=== PATIENT | male | born 1965 | race Hispanic/Latino ===

== ENCOUNTER 2024-09-26 00:56 | Inpatient (IN) | payer MEDICARE, SELFPAY ==
[2024-09-26] VITALS (15 sets, daily range): BP systolic 86–152; BP diastolic 58–71; PULSE 86–180; RESP 14–20; TEMP 36.6–37.1; O2SAT 96–100; BMI 29.9
--- NOTE | ~2024-09-26 | XR_ITS ---
Portable chest x-ray Comparison: None Clinical History: Chest pain Findings: Lungs are clear, without focal consolidation or pleural effusion. Cardiomediastinal silho uette is unremarkable. Bones and soft tissues are unremarkable. Impression: Clear lungs. Reviewed, dictated and finalized at location M. Impression: Clear lungs.
[2024-09-26] MEDS: ADENOSINE IV SOLN 6 MG/2 ML VIAL 12 MG (01:04)
--- NOTE | 2024-09-26 01:06 | ECG_ITS ---
Test Date: 2024-09-26 01:08:36 Measurements Intervals [place] Rate: 105 P: 55 FL: 167 QRS: 13 QRSD: 86 T: 31 QT: 355 QTc: 470 Interpretive Statements SINUS TACHYCARDIA POSSIBLE ANTERIOR MYOCARDIAL INFARCTION , PROBABLY OLD [30 ms Q WAVE IN V3/V4, OR R < 0.2 mV IN V4] PROBABLE INFERIOR MYOCARDIAL INFARCTION , PROBABLY OLD [35 ms Q WAVE IN II/aVF] No previous ECG available for comparison Electronically Signed On 09-26-2024 07:08:13 CDT by Emiliano Parr M.D.
[2024-09-26] MEDS: ONDANSETRON INJ 4 MG/2 ML VIAL IV PUSH ×2 (01:10→11:31)
[2024-09-26 01:27] LABS: Hematocrit 38.8 % (42.0-52.0); Hemoglobin 12.4 g/dL (14.0-18.0); Immature Granulocyte Percent A 0.5 % (0-0.5); Immature Platelet Fraction Pct 3.3 % (0.9-11.2); Lymphocytes Absolute Auto 2.43 K/mm3 (0.9-3.2); Mean Corpuscular HGB Conc 32.0 g/dl (32-36); Mean Corpuscular Hemoglobin 32.5 pg (26-34); Mean Corpuscular Volume 101.6 fl (80-100); Nucleated Red Blood Cells Absolute Auto 0.000 K/mm3 (0.0-0.012); Nucleated Red Blood Cells Perc 0.0 % (0.0-0.2); Platelet Count Result 112 k/mm3 (150-375); Red Blood Count 3.82 M/mm3 (4.6-6.20); White Blood Count 7.6 K/mm3 (4.5-10.0)
[2024-09-26 01:40] LABS: INR 1.0; Partial Thromboplastin Time 25.6 Seconds (22.3-36.8); Prothrombin Time 13.2 Seconds (11.1-14.7)
[2024-09-26 01:45] LABS: Alanine Aminotransferase 50 U/L (6-50); Albumin Level 3.9 g/dL (3.5-5.1); Alkaline Phosphatase 135 U/L (38-126); Anion Gap 10 mmol/L (4-12); Aspartate Amino Transferase 104 U/L (17-59); Bilirubin,Total 0.3 mg/dL (0.2-1.3); Blood Urea Nitrogen 9 mg/dL (9-20); Calcium 9.0 mg/dL (8.4-10.2); Carbon Dioxide 25 mmol/L (22-30); Chloride 109 mmol/L (98-107); Estimated CRCL calculation 68 ml/min; Estimated Glomerular Filt Rate > 60; Glucose 392 mg/dL (65-110); Lipase 144 U/L (23-300); Magnesium 1.9 mg/dL (1.6-2.3); Potassium 4.0 mmol/L (3.4-5.0); Sodium 144 mmol/L (137-145); Total Protein 6.7 g/dL (6.3-8.2)
[2024-09-26 01:56] LABS: Troponin I 0.026 ng/mL (0.000-0.034)
--- OUTSIDE RECORDS SUMMARY | 2024-09-26 02:55 | XMS_ITS | Patient Health Record ---
Author Organization [facility] Address [address] [address] Care Team Providers Care Nitro Man Name Role Phone Felix Per Unavailable [phone] Jamal Reddy DO Unavailable Unavailable Sanjay Strickland Unavailable [phone] Reason For Referral No Information Plan Of Treatment No Information Insurance Providers Payer Name Payer Address Payer Phone Subscriber Number Group Number Insured Name Patient Relationship to Insured Coverage Start Date Coverage End Date Adele ARNOLD [employer] HMO [address] [address] [place] [address] [phone] [id number] Marcel Spencer Self - patient is the insured
--- OUTSIDE RECORDS SUMMARY | 2024-09-26 02:55 | XMS_ITS ---
Author Organization [facility] Address [address] [place] [address] Care Team Providers Care Superintendent Police Name Role Phone Per [place] Unavailable [phone] Jamal Reddy DO Unavailable Unavailable Sanjay Strickland Unavailable [phone] REASON FOR VISIT Vertigo Encounters Encounter Location Date Provider Diagnosis [facility] [address] [place] [id number] 05/28/2024 Sanjay Strickland Plan Of Treatment No Information Progress Notes * Marcel SPENCER DDOB:1965 (59 yo M)Acc No.[id number]:05/28/2024 PROGRESS NOTES Patient: Ivana LUXMarcel Provider: Urvashi Strickland MD :1965 A ge:58 Y S ex:Male Date:05/28/2024 Address:., [place], [id number] Subjective: * Chief Complaints: * 1 . Vertigo. * Medical History: Objective: * Vitals: * Physical Examination: Assessment: Plan: * Treatment: * Images: * Electronic signature of Rosales Strickland MD on 09/26/2024 at 02:55 AM CDT Sign off status: Pending * Provider: Urvashi Strickland MD Date: 05/28/2024 Generated for Dima knight/Margarita/Rosita on: 09/26/2024 02:55 AM CDT
--- OUTSIDE RECORDS SUMMARY | 2024-09-26 02:55 | XMS_ITS | Patient Health Record ---
[place] [address] Care Team Providers Care Bus Girl Name Role Phone CLEM JACK Unavailable [phone] Dr. Hank Jones Unavailable Unavailable Reason For Referral No Information Encounters Encounter Location Date Provider Diagnosis [id number] [address] [place], [place] [id number] 10/23/2023 CLEM JACK Plan Of Treatment No Information Insurance Providers Payer Name Payer Address Payer Phone Subscriber Number Group Number Insured Name Patient Relationship to Insured Coverage Start Date Coverage End Date [place] [address] [address] [place], [place] [id number] Marcel Spencer Self - patient is the insured
--- OUTSIDE RECORDS SUMMARY | 2024-09-26 02:55 | XMS_ITS ---
Author Organization Dianne Iqbal [facility] Address [address] [facility] [place] [address] Care Team Providers Care Senior Care Provider Name Role Phone DOUGLASJIMBOKISHAN EnamoradoRHETT Unavailable [phone] Josue Mena Unavailable [phone] ZOË LIRIANO Unavailable [phone] Allergies No Known Allergies Medications Medication SIG (Take, Route, Frequency, Duration) Notes Start Date End Date Status metFORMIN HCl 500 MG 1 tablet with a madhavi l Orally Once a day Active Cholecalciferol 125 MCG (5000 UT) 1 capsule Orally Once a day Active Morphine Sulfate 30 MG 1 tablet as neede d Orally every 4 hrs Active Pantoprazole Sodium 40 MG 1 tablet Orall y Once a day Active Ondansetron 4 MG 1 tablet on the tong ue and allow to dissolve Orally Once a day Active Cephalexin 500 MG 1 capsule Orally leonardo ry 6 hrs Active Dulaglutide 0.75 MG/0.5ML as directed Subcutaneous Active Dicyclomine HCl 20 MG 1 tablet Orally Th ree times a day Active levETIRAcetam 250 MG 1 tablet Orally leonardo ry 12 hrs Active Atorvastatin Calcium 40 MG 1 tablet Oral ly Once a day Active Empagliflozin 10 MG 1 tablet Orally Once a day Active Furosemide 20 MG 1 tablet Orally Once a day Active Carvedilol 3.125 MG 1 tablet with food Orally Twice a day Active Folic Acid 1 MG 1 tablet Orally Once a day Active Ferrous Sulfate 325 (65 Fe) MG 1 tablet Orally Three times a Week Active Plavix 75 MG 1 tablet Orally Once a day Active Aspirin 81 MG 1 tablet Orally Once a day Active Thiamine Mononitrate 100 MG 1 tablet Ora lly Once a day Active Senokot S 8.6-50 MG 1 tablet as needed Orally Twice a day Active Amiodarone HCl 200 MG 1 tablet Orally On ce a day Active Nitrostat 0.4 MG as directed Sublingual Active Social History Tobacco Use: Social History Observation Description Date Details (start date - stop date) Current Smoker NA - NA Tobacco Use/Smoking Question Answer Notes Are you a current every day smoker Encounters Encounter Location Date Provider Diagnosis [facility] [address] [facility] [address] [place] [address] 12/10/2023 ZOË LIRIANO Atherosclerotic hear t disease of [place] coronary artery without angina pectoris I25.10 and Presence of aortocoronary bypass graft Z95.1 Assessments Encounter Date Diagnosis (ICD Code) Assessment Notes Treatment Notes Treatment Clinical Notes Section Notes 12/10/2023 Atherosclerotic heart disease of [place] coronary artery without angina pectoris (ICD-10 - I25.10) Patient Presents to the office for routine follow up. On examination his sternum is stable, leg and chest incisions are sealed and healing with out signs of infection. Heart is in regular rate and rhythm chest is clear. Discussed the need to start cardiac rehabilitation begining on week four post operative. Resume full activity after sixth week. 12/10/2023 Presence of aortocoronary bypass graft (ICD-10 - Z95.1) Patient Presents to the office for routine follow up. On examination his sternum is stable, leg and chest incisions are sealed and healing with out signs of infection. Heart is in regular rate and rhythm chest is clear. Discussed the need to start cardiac rehabilitation begining on week four post operative. Resume full activity after sixth week. Plan Of Treatment Next Appt Details Follow Up: prn, Reason: Progress Notes * KETTY BERNALOB:[birth year] (59 yo M)Acc No.[id number]:12/10/2023 Progress Notes Patient: RAMAN LOVETT Provider: Tony Liriano M.D. :1965 A ge:58 Y S ex:Male Date:12/10/2023 Address:[address] [place], [place] [id number] Subjective: * Chief Complaints: * * HPI: V isit: The patient's reason for visit is: S urgical follow up.? Mr. Gamble is a status post CORONARY ARTERY BYPASS WITH ENDOSCOPIC VEIN HARVEST FROM LEFT LEG AND UTILIZATION OF LEFT INTERNAL MAMMARY ARTERY by Dr. Herrera on November 14, 2023. * ROS: G eneral/Constitutional: CONSTITUTIONAL: N o fevers, chills, sweats, anorexia or weight loss. H EENT: N o tinnitus, epistaxis, nasal congestion or sore throat. C ARDIOVASCULAR: N o chest pains. R ESPIRATORY: N o cough, sputum, hemoptysis or pleurisy. G I: No abdominal pain, nausea, vomiting, diarrhea, constipation or change in stools. G U: N o dysuria, frequency, urgency or hematuria. M USCULOSKELETAL: N o arthralgias or myalgias. SKIN: N o rashes, bruising, pruritus or new lumps. P SYCHIATRIC: N o insomnia or depression. E NDOCRINE: N o heat or cold intolerance. H EMIL/LYMPH: N o fatigue or night sweats. I MMUNOLOGY: N o allergy symptoms or recent infection. * Medical History: A nemia, CAD, Cocaine abuse, Diabetes type 2, ETOH abuse, HLD, HTN, Heart failure, Discitis lumbar region, Seizure, NSTEMI. * Surgical History: C ABG - Dr. Herrera 11/14/2023. * Family History: N on-Contributory. * Social History: T obacco Use: T obacco Use/Smoking A re you a c urrent every day smoker D rugs/Alcohol: D rugs H ave you used drugs other than those for medical reasons in the past 12 months? Y es C ocaine? Y es * Medications: T aking Carvedilol 3.125 MG Tablet 1 tablet with food Orally Twice a day , Taking Atorvastatin Calcium 40 MG Tablet 1 tablet Orally Once a day , Taking levETIRAcetam 250 MG Tablet 1 tablet Orally every 12 hrs , Taking Cephalexin 500 MG Capsule 1 capsule Orally every 6 hrs , Taking Dicyclomine HCl 20 MG Tablet 1 tablet Orally Three times a day , Taking Dulaglutide 0.75 MG/0.5ML Solution Pen-injector as directed Subcutaneous , Taking Cholecalciferol 125 MCG (5000 UT) Capsule 1 capsule Orally Once a day , Taking metFORMIN HCl 500 MG Tablet 1 tablet with a meal Orally Once a day , Taking Ondansetron 4 MG Tablet Disintegrating 1 tablet on the tongue and allow to dissolve Orally Once a day , Taking Pantoprazole Sodium 40 MG Tablet Delayed Release 1 tablet Orally Once a day , Taking Morphine Sulfate 30 MG Tablet 1 tablet as needed Orally every 4 hrs , Taking Nitrostat 0.4 MG Tablet Sublingual as directed Sublingual , Taking Amiodarone HCl 200 MG Tablet 1 tablet Orally Once a day , Taking Aspirin 81 MG Tablet Chewable 1 tablet Orally Once a day , Taking Plavix 75 MG Tablet 1 tablet Orally Once a day , Taking Senokot S 8.6-50 MG Tablet 1 tablet as needed Orally Twice a day , Taking Thiamine Mononitrate 100 MG Tablet 1 tablet Orally Once a day , Taking Furosemide 20 MG Tablet 1 tablet Orally Once a day , Taking Empagliflozin 10 MG Tablet 1 tablet Orally Once a day , Taking Ferrous Sulfate 325 (65 Fe) MG Tablet 1 tablet Orally Three times a Week , Taking Folic Acid 1 MG Tablet 1 tablet Orally Once a day , Medication List reviewed and reconciled with the patient * Allergies: N .K.D.A. Objective: * Vitals: * Examination: G eneral Examination: GENERAL: W ell developed, well nourished, in no acute distress. HEAD: N ormocephalic, atraumatic and no facial swelling.? EYES: P ERRLA/EOM intact, conjunctiva and sclera clear . NECK/THYROID: N ormal without masses, carotid bruits or JVD. LUNGS: C lear bilaterally to auscultation and percussion.? CVS: R egular rate and rhythm. Normal S1 and S2 sounds without murmur, gallops or rubs. PMI at fourth-fifth ICS. ABDOMEN: c hest tube sutures removed . CHEST: S ternotomy wound. INCISION/WOUND: h ealing no infection in wound, sutures removed, clean, dry and intact. STERNUM: S table. EXTREMITIES: N o clubbing, cyanosis, edema or deformity.? PERIPHERAL PULSES: P alpable and equally distributed in all extremities. NEUROLOGICAL: N o gross deficits. Assessment: * Assessment: 1. 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 P resence of aortocoronary bypass graft - Z95.1 Patient Presents to the offi ce for routine follow up. On examination his sternum is stable, leg and chest incisions are sealed and healing with out signs of infection. Heart is in regular rate and rhythm chest is clear. Discussed the need to start cardiac rehabilitation begining on week four post operative. Resume full activity after sixth week. Plan: * Treatment: * Follow Up: p rn * * Electronic signature of ZOË LIRIANO MD on 09/26/2024 at 02:55 AM CDT Sign off status: Pending * Provider: Tony Liriano M.D. Date: 12/10/2023 Generated for [facility] ng/Falakeg/eTransmitting on: 09/26/2024 02:55 AM CDT History and Physical Notes * HPI (History of Present Illness) Category Sub-Category Detail Notes Category Not es Visit The patient's reason for visit is: Surgical follow up Mr. Gamble is a status post CORONARY ARTERY BYPASS WITH ENDOSCOPIC VEIN HARVEST FROM LEFT LEG AND UTILIZATION OF LEFT INTERNAL MAMMARY ARTERY by Dr. Herrera on November 14, 2023 Examination Category Sub-Category Detail Notes Category Not es General Examination GENERAL: Well develop ed, well nourished, in no acute distress HEAD: Normocephalic, atrau matic and no facial swelling EYES: PERRLA/EOM intact, conjunctiva and sclera clear NECK/THYROID: Normal without raúl s, carotid bruits or JVD CVS: Regular rate and rhy thm. Normal S1 and S2 sounds without murmur, gallops or rubs. PMI at fourth-fifth ICS CHEST: Sternotomy wound LUNGS: Clear bilaterally to auscultation and percussion ABDOMEN: chest tube sutures r emoved EXTREMITIES: No clubbing, cyanosi s, edema or deformity PERIPHERAL PULSES: Palpable and equally distributed in all extremities INCISION/WOUND: healing no infection in wound, sutures removed, clean, dry and intact STERNUM: Stable NEUROLOGICAL: No gross deficits
--- OUTSIDE RECORDS SUMMARY | 2024-09-26 02:55 | XMS_ITS | Clinical Summary ---
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 This disclosure is being madepursuant to the Care Everywhere program and may not contain all information available regarding this patient. Last updated [employer] Allergies No known active allergies Medications * Be aware that medications may not be up to date on this document. Alwaysverify current medications with the patient. atorvastatin (Lipitor) 40 MG tablet Take 1 (one) tablet by mouth once daily Active carvedilol (Coreg) 3.125 MG tablet Take 1 (one) tablet by mouth 2 times daily with morning and evening meal 4 Active cephalexin 250 MG Take 250 mg by mouth once daily 4 Active cloNIDine (Catapres) 0.1 MG tablet Take 1 (one) tablet by mouth 2 times daily as needed (BP greater than 160/90) Active folic acid (Folvite) 1 MG tablet Take 1 (one) tablet by mouth once daily Active levETIRAcetam (Keppra) 500 MG tablet Take 1 (one) tablet by mouth 2 times daily Active losartan (Cozaar) 50 MG tablet Take 1 (one) tablet by mouth once daily Active metFORMIN (Glucophage) 1000 MG tablet Take 1 (one) tablet by mouth 2 times daily with morning and evening meal Active glipiZIDE (Glucotrol) 5 MG tablet Take 1 (one) tablet by mouth 2 times daily Active Cholecalciferol (vitamin D3) 1.25 MG (49249 UT) capsule Take 1 (one) capsule by mouth every 7 days (once a week) Active Cyanocobalamin (CVS B12 GUMMIES PO) Take 250 mcg by mouth 2 times daily Active CALCIUM MAGNESIUM ZINC PO Take 1 tablet by mouth once daily Active clopidogrel (plaVIX) 75 MG tablet Take 1 (one) tablet by mouth once daily Active ferrous sulfate 325 (65 FE) MG tablet Take 1 (one) tablet by mouth every Sunday, Sunday & Sunday Active morphine CR 12hr (MS Contin) 30 MG tablet Take 1 (one) tablet by mouth 3 times daily Active Active Problems Problem Noted Date Diagnosed Date Acute alcoholic intoxication without complicatio n 09/20/2024 Encounters Date Type Department Care Team Description 09/20/2024 10:09 AM CDT - 09/23/2024 2:12 PM CDT Hospital Encounter [facility] [address] [place] [address] Jim Mccormack MD Wolde, Hailemariam, DO Internal Medicine Discharge Disposition: Left Against Medical Advice/Discontinued Care 09/20/2024 Travel 09/16/2024 1:15 PM CDT - 09/16/2024 1:57 PM CDT Emergency ER at [address] [address] Chele Olivo MD Drug-seeking behavior (Primary Dx); Chest pain, unspecified type; Alcohol abuse; Homelessness Discharge Disposition: Home or Self Care 09/16/2024 Travel 09/15/2024 10:42 AM CDT - 09/15/2024 2:00 PM CDT Emergency ER at [address] [address] Chele Olivo MD Chest pain, unspecified type; Homelessness; Alcohol abuse Discharge Disposition: Home or Self Care 09/15/2024 Travel 09/14/2024 4:34 PM CDT - 09/14/2024 5:59 PM CDT Emergency ER at [address] [place] [address] Chele Olivo MD Drug-seeking behavior (Primary Dx); Chest pain, unspecified type; Generalized abdominal pain; Acute alcoholic intoxication with complication; Left against medical advice Discharge Disposition: Left Against Medical Advice/Discontinued Care 09/14/2024 Travel from Last 3 Months Social History Tobacco Use Types Packs/Day Years Used Date Smoking Tobacco: Every Day Cigarettes Smokeless Tobacco: Never Tobacco Cessation:Ready to Q uit: No; Counseling Given: Yes Alcohol Use Standard Drinks/Week Comments Yes 0 (1 standard drink = 0.6 oz pur e alcohol) daily drinker AUDIT-C Answer Date Recorded Q1: How often do you have a drink containing alcohol? 4 or more times a week 09/20/2024 Q2: How many drinks containi ng alcohol do you have on a typical day when you are drinking? 10 or more Q3: How often do you have si x or more drinks on one occasion? Daily or almost daily 09/20/2024 Overall Financial Resource Strain (CARDIA) Answe r Date Recorded How hard is it for you to pa y for the very basics like food, housing, medical care, and heating? Somewhat hard 09/21/2024 [facility] [place] of Occupat ional Health - Occupational Stress Questionnaire Answer Date Recorded Do you feel stress - tense, restless, nervous, or anxious, or unable to sleep at night because your mind is troubled all the time - these days? Only a little 09/21/2024 Hunger Vital Sign Answer Date Recorded Within the past 12 months, y ou worried that your food would run out before you got the money to buy more. Sometimes true Within the past 12 months, t he food you bought just didn't last and you didn't have money to get more. Never true 08/2024 PRAPARE - Transportation Answer Date Re corded In the past 12 months, has l ack of transportation kept you from medical appointments or from getting medications? No 08/2024 In the past 12 months, has l ack of transportation kept you from meetings, work, or from getting things needed for daily living? No 09/21/2024 Housing Stability Vital Sign Answer Nilo e Recorded In the last 12 months, was t here a time when you were not able to pay the mortgage or rent on time? Yes 09/21/2024 In the past 12 months, how m any times have you moved where you were living? 1 09/21/2024 At any time in the past 12 m [facility], were you homeless or living in a half-way (including now)? Patient unable to answer 09/21/2024 Sex and Gender Information Value Date Recorded Sex Assigned at Not on file Legal Sex Male 3:48 PM CDT Gender Identity Not on file Sexual Orientation Not on file Last Filed Vital Signs Vital Sign Reading Time Taken Comments Blood Pressure 122/59 09/23/2024 6:46 AM CDT Pulse 85 09/23/2024 6:46 AM CDT Temperature 36.5 C (97.7 F) 09/23/2024 6:46 AM CDT Respiratory Rate 19 09/23/2024 6:46 AM CDT Oxygen Saturation 96% 09/23/2024 6:46 AM CDT Inhaled Oxygen Concentration - - Weight 79.8 kg (176 lb) 09/20/2024 4:31 PM CDT Height 165.1 cm (5' 5) 09/20/2024 4:31 PM CDT Body Mass Index 29.29 09/20/2024 4:31 PM CDT Plan of Treatment Health Maintenance Due Date Last Done Comments COLOGUARD (AGES 45-75) - COL ON CA SCREENING 1964 COLON MONITORING 1964 COLONOSCOPY - COLON CA SCREENING 1964 CT COLONOGRAPHY - COLON CA SCREENING 1964 Colorectal Cancer Screening 1964 FIT - COLON CA SCREENING 1964 FLEX SIG - COLON CA SCREENING 1964 HIV SCREENING 06/26/1979 HEPATITIS C SCREENING 06/21/1982 DTAP/TDAP/TD VACCINES (1 - Tdap) 06/26/1983 PNEUMOCOCCAL VACCINE 50+ (1 of 2 - PCV) 06/26/1983 ZOSTER VACCINE (1 of 2) 2014 COVID-19 VACCINE ( - 2023-2 5 season) 2023 DEPRESSION SCREENING 03/19/2024 MEDICARE AWV CALENDAR YEAR 2024 INFLUENZA VACCINE (#1) 2024 Respiratory Syncytial Virus (RSV) Vaccine Pt: or over 60 yrs (1 - 1-dose 75+ series) 06/26/2039 HEPATITIS B VACCINE Aged Out No longe r eligible based on patient's age to complete this topic HIB VACCINE Aged Out No longer eligi ble based on patient's age to complete this topic HPV VACCINE Aged Out No longer eligi ble based on patient's age to complete this topic MENINGOCOCCAL (Group B) VACC INE SHARED DECISION-MAKING Aged Out No longer eligibl e based on patient's age to complete this topic MENINGOCOCCAL GROUPS A/C/Y/W VACCINE Aged Out No longer eligible b ased on patient's age to complete this topic Procedures Procedure Name Priority Date/Time Associated Diagnosis Comments CARDIAC RHYTHM STRIP ORDER 09/24/2024 10:26 AM CDT GLUCOSE - POINT OF CARE Routine 09/23/2024 11:35 AM CDT GLUCOSE - POINT OF CARE Routine 09/23/2024 7:32 AM CDT GLUCOSE - POINT OF CARE Routine 09/22/2024 8:59 PM CDT GLUCOSE - POINT OF CARE Routine 09/22/2024 5:54 PM CDT GLUCOSE - POINT OF CARE Routine 09/22/2024 11:49 AM CDT GLUCOSE - POINT OF CARE Routine 09/22/2024 8:36 AM CDT GLUCOSE - POINT OF CARE Routine 09/21/2024 10:03 PM CDT GLUCOSE - POINT OF CARE Routine 09/21/2024 5:06 PM CDT GLUCOSE - POINT OF CARE Routine 09/21/2024 11:27 AM CDT GLUCOSE - POINT OF CARE Routine 09/21/2024 6:57 AM CDT VITAMIN B12 AM Draw 09/21/2024 3:52 AM CDT LIPID PROFILE AM Draw 09/21/2024 3:52 AM CDT HEMOGLOBIN A1C Routine 09/21/2024 3:52 AM CDT PHOSPHORUS BLOOD Routine 09/21/2024 3:52 AM CDT MAGNESIUM BLOOD Routine 09/21/2024 3:52 AM CDT CBC W/O DIFFERENTIAL Routine 09/21/2024 3:52 AM CDT BASIC METABOLIC PANEL (CALCIUM TOTAL) Routine 09/21/2024 3:52 AM CDT GLUCOSE - POINT OF CARE Routine 09/21/2024 12:43 AM CDT GLUCOSE - POINT OF CARE Routine 09/20/2024 4:32 PM CDT ALCOHOL ETHYL BLOOD STAT 09/20/2024 1 :25 PM CDT MAGNESIUM BLOOD STAT 09/20/2024 1:25 PM CDT LIPASE BLOOD STAT 09/20/2024 1:25 PM CDT COMPREHENSIVE METABOLIC PANEL STAT 09/20/2024 1:25 PM CDT CBC W AUTO DIFFERENTIAL STAT 09/20/2024 1:25 PM CDT EKG 12-LEAD STAT 09/16/2024 1:21 PM CDT Chest pain, unspecified type TROPONIN-I HIGH SENSITIVE REFLEX 1HOUR Timed 09/15/2024 12:14 PM CDT GLUCOSE - POINT OF CARE Routine 09/15/2024 12:11 PM CDT XR CHEST 2VW STAT 09/15/2024 11:06 AM CDT Chest pain, unspecified type ALCOHOL ETHYL BLOOD STAT 09/15/2024 1 0:55 AM CDT B-TYPE NATRIURETIC PEPTIDE STAT 09/15/2024 10:55 AM CDT TROPONIN-I HIGH SENSITIVE BASELINE + 1HR STAT 09/15/2024 10:55 AM CDT PT-INR STAT 09/15/2024 10:55 AM CDT MAGNESIUM BLOOD STAT 09/15/2024 10:55 AM CDT LIPASE BLOOD STAT 09/15/2024 10:55 AM CDT COMPREHENSIVE METABOLIC PANEL STAT 09/15/2024 10:55 AM CDT CBC W AUTO DIFFERENTIAL STAT 09/15/2024 10:55 AM CDT EKG 12-LEAD STAT 09/15/2024 10:38 AM CDT Chest pain, unspecified type CT ABDOMEN PELVIS W CONTRAST STAT 09/14/2024 5:09 PM CDT Chest pain, unspecified type Generalized abdominal pain XR CHEST 1VW PORTABLE STAT 09/14/2024 4:55 PM CDT Chest pain, unspecified type AMYLASE BLOOD STAT 09/14/2024 4:31 PM CDT LIPASE BLOOD STAT 09/14/2024 4:31 PM CDT ALCOHOL ETHYL BLOOD STAT 09/14/2024 4 :31 PM CDT COMPREHENSIVE METABOLIC PANEL STAT 09/14/2024 4:31 PM CDT CBC W AUTO DIFFERENTIAL STAT 09/14/2024 4:31 PM CDT TROPONIN-I HIGH SENSITIVE BASELINE + 1HR STAT 09/14/2024 4:31 PM CDT EKG 12-LEAD STAT 09/14/2024 4:22 PM CDT Chest pain, unspecified type from Last 3 Months Results * CARDIAC RHYTHM STRIP ORDER (09/24/2024 10:26 AM CDT) Narrative 09/24/2024 10:26 AM CDT Ordered by an unspecified provider. us Scanned Document CARDIAC SERVICES ORDERABLES Fin al Result * (ABNORMAL) GLUCOSE - POINT OF CARE (09/23/2024 11:35 AM CDT) Only the most recent of13 resultswithin the time period is included. Pathologist [facility] Glucose WB/POC 138(H) 70 - 125 mg/dL 09/23/2024 11:40 AM CDT [facility] Specimen Type Arterial/C apillary 09/23/2024 11:40 AM CDT [facility] Blood BLOOD SPECIMEN / Unknown 09/23/2024 11:35 AM CDT 09/23/2024 11:40 AM CDT Akil Flores DO LAB - POINT OF CARE ORDERAB LES Final Result [facility] [address] * (ABNORMAL) HEMOGLOBIN A1C (09/21/2024 3:52 AM CDT) Pathologist [facility] Hemoglobin A1c 9.3(H) 4.2 - 5.6 % 09/21/2024 4:44 AM CDT [facility] Estimated Average Glucose 220 mg/dL 09/21/2024 4:44 AM CDT [facility] Blood BLOOD SPECIMEN / Unknown Lab Venipuncture / Unknown 09/21/2024 3:52 AM CDT 09/21/2024 4:01 AM CDT Narrative [facility] - 09/21/2024 4:44 AM CDT HbA1c Interpretation: Normal: < 5.7% Pre-diabetes: 5.7-6.4% Diabetes: Equal to or greater than 6.5% Test results diagnostic of diabetes should be repeated for confirmation. Treatment target values recommended by ADA and other clinical organizations should be used to evaluate metabolic control in patients. This test should not replace glucose testing for patients with Type 1 diabetes, pediatric patients, or women. Falsely low HbA1c results may be observed in patients with clinical conditions that shorten erythrocyte life span or decrease mean erythrocyte age such as the presence of unstable hemoglobin variants, elevated hemoglobin F level or other causes of hemolytic anemia. HbA1c may not accurately reflect glycemic control when clinical conditions that affect erythrocyte survival are present. Severe Iron deficiency anemia may yield falsely high results. Hemoglobin A1c assay should not be used to diagnose or monitor diabetes in patients with malignancy, recent blood transfusion, chronic kidney or liver disease. This method may yield falsely low results when hemoglobin (HbF) exceeds 5% in the specimen. The Bethea Alinity assay for the measurement of HbA1c is a National Glycohemoglobin Standardization Program (NGSP) certified method. Jim Mccormack MD LAB - CHEMISTRY ORDERABLES Final Result [facility] [address] * (ABNORMAL) CBC W/O DIFFERENTIAL (09/21/2024 3:52 AM CDT) [facility] WBC 5.6 4.0 - 10.7 x10E9/L 09/21/2024 4:09 AM CDT [facility] RBC Count 3.60(L) 4.30 - 5.80 x10E12/L 09/21/2024 4:09 AM CDT [facility] Hemoglobin 11.7(L) 13.3 - 17.5 g/dL 09/21/2024 4:09 AM CDT [facility] Hematocrit 35.5(L) 38.7 - 51.1 % 09/21/2024 4:09 AM CDT [facility] MCV 98.6(H) 80.0 - 98.0 fL 09/21/2024 4:09 AM CDT [facility] MCH 32.5 26.7 - 33.6 pg 09/21/2024 4:09 AM CDT [facility] MCHC 33.0 31.7 - 36.3 g/dL 09/21/2024 4:09 AM CDT [facility] RDW-CV 14.9(H) 11.3 - 14.8 % 09/21/2024 4:09 AM CDT [facility] Platelet Count 137(L) 150 - 420 x10E9/L 09/21/2024 4:09 AM CDT [facility] MPV 10.0 7.8 - 11.4 fL 09/21/2024 4:09 AM CDT [facility] Blood BLOOD SPECIMEN / Unknown Lab Venipuncture / Unknown 09/21/2024 3:52 AM CDT 09/21/2024 4:01 AM CDT Jim Mccormack MD LAB - HEMATOLOGY ORDERABLES Kathya ramirez Result [facility] [address] * (ABNORMAL) BASIC METABOLIC PANEL (CALCIUM TOTAL) (09/21/2024 3:52 AM CDT) Glucose 285(H) 70 - 125 mg/dL 09/21/2024 4:24 AM CDT [facility] Sodium 145 136 - 145 mmol/L 09/21/2024 4:24 AM CDT [facility] Potassium 3.7 3.4 - 5.1 mmol/L 09/21/2024 4:24 AM CDT [facility] Chloride 108(H) 98 - 107 mmol/L 09/21/2024 4:24 AM CDT [facility] CO2 24 22 - 29 mmol/L 09/21/2024 4:24 AM CDT [facility] Calcium 7.76(L) 8.4 - 10.2 mg/dL 09/21/2024 4:24 AM CDT [facility] Anion Gap 13 6 - 16 mmol/L 09/21/2024 4:24 AM CDT [facility] BUN 9.7 8.4 - 25.7 mg/dL 09/21/2024 4:24 AM CDT [facility] Creatinine 0.82 0.72 - 1.25 mg/dL 09/21/2024 4:24 AM CDT [facility] eGFR >90 >90 mL/min/1.7 3m2 09/21/2024 4:24 AM CDT [facility] Comment:The GFR result was c alculated using the updated CKD-EPI Creatinine Equation (2020). Blood BLOOD SPECIMEN / Unknown Lab Venipuncture / Unknown 09/21/2024 3:52 AM CDT 09/21/2024 4:01 AM CDT us Jim Mccormack MD LAB - CHEMISTRY ORDERABLES Final Result Performing Organization Address City/[facility] de Phone Number [facility] [address] * (ABNORMAL) PHOSPHORUS BLOOD (09/21/2024 3:52 AM CDT) Phosphorus 2.0(L) 2.5 - 4.5 mg/dL 09/21/2024 4:21 AM CDT [facility] Blood BLOOD SPECIMEN / Unknown Lab Venipuncture / Unknown 09/21/2024 3:52 AM CDT 09/21/2024 4:01 AM CDT us Jim Mccormack MD LAB - CHEMISTRY ORDERABLES Final Result Performing Organization Address [facility] Phone Number [facility] [address] * MAGNESIUM BLOOD (09/21/2024 3:52 AM CDT) Only the most recent of3 resultswithin the time period is included. Magnesium 1.7 1.6 - 2.6 mg/dL 09/21/2024 4:21 AM CDT [facility] Blood BLOOD SPECIMEN / Unknown Lab Venipuncture / Unknown 09/21/2024 3:52 AM CDT 09/21/2024 4:01 AM CDT us Jim Mccormack MD LAB - CHEMISTRY ORDERABLES Final Result Performing Organization Address [facility] de Phone Number [facility] [address] * VITAMIN B12 (09/21/2024 3:52 AM CDT) Vitamin B12 582 213 - 816 pg/mL 09/21/2024 5:07 AM CDT [facility] Blood BLOOD SPECIMEN / Unknown Lab Venipuncture / Unknown 09/21/2024 3:52 AM CDT 09/21/2024 4:01 AM CDT Jim Mccormack MD LAB - CHEMISTRY ORDERABLES Final Result [facility] [address] * (ABNORMAL) LIPID PROFILE (09/21/2024 3:52 AM CDT) Pathologist [facility] Cholesterol 130 <200 mg/dL 09/21/2024 4:22 AM CDT [facility] Triglycerides 460(H) <150 mg/dL 09/21/2024 4:22 AM CDT [facility] HDL Cholesterol 58 >40 mg/dL 4:22 AM CDT [facility] Chol HDL Ratio 2.2 1.0 - 6.0 09/21/2024 4:22 AM CDT [facility] LDL Calculated 09/21/2024 4:22 AM CDT [facility] Comment:Not Calculated due t o Triglyceride >400 mg/dL. VLDL Calculated 4:22 AM CDT [facility] Comment:Not Calculated due t o Triglyceride >400 mg/dL. Blood BLOOD SPECIMEN / Unknown Lab Venipuncture / Unknown 09/21/2024 3:52 AM CDT 09/21/2024 4:01 AM CDT Narrative [facility] - 09/21/2024 4:22 AM CDT Lipid Profile Comment: CHOLESTEROL LEVEL..................CLINICAL INTERPRETATION LESS THAN 200 MG/DL..............................DESIRABLE 200-239 MG/DL..............................BORDERLINE HIGH GREATER THAN 240 MG/DL................................HIGH LDL-CHOLESTEROL LEVEL..............CLINICAL INTERPRETATION LESS THAN 100 MG/DL................................OPTIMAL 100-129 MG/DL.................................NEAR OPTIMAL GREATER THAN 160 MG/DL...........................HIGH RISK HDL RISK LEVEL GREATER THEN 60 MG/DL............................DECREASED 40-60 MG/DL........................................AVERAGE LESS THAN 40 MG/DL...............................INCREASED TRIGLYCERIDE LEVEL..................CLINICAL INTERPRETATION LESS THAN 150 MG/DL...............................DESIRABLE 150-199 MG/DL...............................BORDERLINE HIGH 200-499 MG/DL..........................................HIGH GREATER THAN 500..................................VERY HIGH THE NATIONAL CHOLESTEROL EDUCATION PROGRAM HAS SET THE ABOVE GUIDELINES (REFERANCE VALUES) FOR CHOLESTEROL AND HDL. RISK ASSOCIATED WITH CHOLESTEROL/HDL RATIOS RISK....................MALE RATIO.............FEMALE RATIO 1/2 AVERAGE.................<3.4.......................<3.3 LOW RISK.................... 4.0 ...................... 3.8 AVERAGE..................... 5.0 ...................... 4.5 2X AVERAGE.................. 9.5 ...................... 7.0 3X AVERAGE...................>23........................>11 Jim Mccormack MD LAB - CHEMISTRY ORDERABLES Final Result Performing Organization Address City/State/[facility] Co de Phone Number [facility] [address] * (ABNORMAL) CBC W AUTO DIFFERENTIAL (09/20/2024 1:25 PM CDT) Only the most recent of3 resultswithin the time period is included. [facility] Signature WBC 7.4 4.0 - 10.7 x10E9/L 09/20/2024 2:02 PM CDT [facility] RBC Count 3.93(L) 4.30 - 5.80 x10E12/L 09/20/2024 2:02 PM CDT [facility] Hemoglobin 13.1(L) 13.3 - 17.5 g/dL 09/20/2024 2:02 PM CDT [facility] Hematocrit 37.8(L) 38.7 - 51.1 % 09/20/2024 2:02 PM CDT [facility] MCV 96.2 80.0 - 98.0 fL 09/20/2024 2:02 PM CDT [facility] MCH 33.3 26.7 - 33.6 pg 09/20/2024 2:02 PM CDT [facility] MCHC 34.7 31.7 - 36.3 g/dL 09/20/2024 2:02 PM CDT [facility] RDW-CV 14.6 11.3 - 14.8 % 09/20/2024 2:02 PM T [facility] Platelet Count 145(L) 150 - 420 x10E9/L 09/20/2024 2:02 PM CDT [facility] MPV 9.8 7.8 - 11.4 fL 09/20/2024 2:02 PM [facility] Neutrophil % 68.0 41.0 - 74.0 % 09/20/2024 2:02 PM T [facility] Lymphocyte % 22.7 17.0 - 47.0 % 09/20/2024 2:02 PM CDT [facility] Monocyte % 8.5 3.0 - 11.0 % 09/20/2024 2:02 PM CDT [facility] Eosinophil % 0.0 0.0 - 7.0 % 09/20/2024 2:02 PM CDT [facility] Basophil % 0.5 0.0 - 1.6 % 09/20/2024 2:02 PM CDT [facility] Immature Granulocytes % 0.3 0.0 - 1.0 % 09/20/2024 2:02 PM CDT [facility] Neutrophil Absolute 5.01 1.60 - 7.50 x10E9/L 09/20/2024 2:02 PM CDT [facility] Lymphocyte Absolute 1.67 1.00 - 4.40 x10E9/L 09/20/2024 2:02 PM CDT [facility] Monocyte Absolute 0.63 0.15 - 1.00 x10E9/L 09/20/2024 2:02 PM CDT [facility] Eosinophil Absolute 0.00 0.00 - 0.60 x10E9/L 09/20/2024 2:02 PM CDT [facility] Basophil Absolute 0.04 0.00 - 0.13 x10E9/L 09/20/2024 2:02 PM T [facility] Blood BLOOD SPECIMEN / Unknown Venipuncture / Unknown 09/20/2024 1:25 PM CDT 09/20/2024 1:31 PM CDT us Kvng Moreno MD LAB - HEMATOLOGY ORDERABLES F inal Result [facility] [address] [place], [place] [id number] [place] [address] * (ABNORMAL) COMPREHENSIVE METABOLIC PANEL (09/20/2024 1:25 PM CDT) Only the most recent of3 resultswithin the time period is included. Glucose 299(H) 70 - 125 mg/dL 09/20/2024 2:02 PM T [facility] Sodium 147(H) 136 - 145 mmol/L 09/20/2024 2:02 PM T [facility] Potassium 3.0(LL) 3.4 - 5.1 mmol/L 09/20/2024 2:02 PM T [facility] Chloride 105 98 - 107 mmol/L 09/20/2024 2:02 PM T [facility] CO2 26 22 - 29 mmol/L 09/20/2024 2:02 PM T [facility] Calcium 8.27(L) 8.4 - 10.2 mg/dL 09/20/2024 2:02 PM T [facility] Anion Gap 16 6 - 16 mmol/L 09/20/2024 2:02 PM T [facility] BUN 8.3(L) 8.4 - 25.7 mg/dL 09/20/2024 2:02 PM T [facility] Creatinine 0.84 0.72 - 1.25 mg/dL 09/20/2024 2:02 PM T [facility] Alkaline Phosphatase 104 40 - 150 U/L 09/20/2024 2:02 PM CDT [facility] ALT 28 7 - 42 U/L 09/20/2024 2:02 PM T [facility] AST 36(H) 5 - 34 U/L 09/20/2024 2:02 PM CDT [facility] [facility] Protein Total 6.0(L) 6.4 - 8.3 gm/dL 09/20/2024 2:02 PM CDT [facility] Albumin 3.4 3.1 - 4.5 gm/dL 09/20/2024 2:02 PM CDT [facility] Globulin Total 2.6 2.6 - 4.0 gm/dL 09/20/2024 2:02 PM CDT [facility] Albumin/Globulin Ratio 1.3 0.9 - 1.6 09/20/2024 2:02 PM CDT [facility] Bilirubin Total 0.6 0.2 - 1.2 mg/dL 09/20/2024 2:02 PM CDT [facility] eGFR >90 >90 mL/min/1.7 3m2 09/20/2024 2:02 PM CDT [facility] Comment:The GFR result was c alculated using the updated CKD-EPI Creatinine Equation (2020). Blood BLOOD SPECIMEN / Unknown Venipuncture / Unknown 09/20/2024 1:25 PM CDT 09/20/2024 1:31 PM CDT Kvng Moreno MD LAB - CHEMISTRY ORDERABLES Fi nal Result Performing Organization Address City/[facility]/ZIP Co de Phone Number [facility] [address] * (ABNORMAL) LIPASE BLOOD (09/20/2024 1:25 PM CDT) Only the most recent of3 resultswithin the time period is included. Lipase 6(L) 8 - 78 U/L 09/20/2024 1:50 PM CDT [facility] Blood BLOOD SPECIMEN / Unknown Venipuncture / Unknown 09/20/2024 1:25 PM CDT 09/20/2024 1:31 PM CDT Kvng Moreno MD LAB - CHEMISTRY ORDERABLES Fi nal Result Performing Organization Address City/[facility]/ZIP Co de Phone Number [facility] [address] * (ABNORMAL) ALCOHOL ETHYL BLOOD (09/20/2024 1:25 PM CDT) Only the most recent of3 resultswithin the time period is included. Ethanol 381.9(H) <10 mg/dL 09/20/2024 1:50 PM CDT [facility] Blood BLOOD SPECIMEN / Unknown Venipuncture / Unknown 09/20/2024 1:25 PM CDT 09/20/2024 1:31 PM CDT Narrative [facility] - 09/20/2024 1:50 PM CDT For Medical Use Only us Kvng Moreno MD LAB - CHEMISTRY ORDERABLES Fi nal Result Performing Organization Address City/[facility]/ZIP Co de Phone Number [facility] [address] * EKG 12-Lead (09/16/2024 1:21 PM CDT) Only the most recent of3 resultswithin the time period is included. 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) low-voltage QRS complexes in the lateral precordial leads Abnormal ECG When compared with ECG of 15-SEP-2024 10:38, No significant change was found Confirmed by MD IMELDA, [facility] ([id number]) on 09/17/2024 9:42:27 AM [facility] 09/16/2024 1:21 PM CDT 09/17/2024 9:42 AM CDT us Chele Olivo MD ECG ORDERABLES Edited Res ult - Final [facility] * TROPONIN-I HIGH SENSITIVE REFLEX 1HOUR (09/15/2024 12:14 PM CDT) Troponin I High Sensitive 13 <=35 ng/L 09/15/2024 12:42 PM CDT [facility] Delta Troponin I HS <0 <6 ng/L 09/15/2024 12:42 PM CDT [facility] Blood BLOOD SPECIMEN / Unknown Venipuncture / Unknown 09/15/2024 12:14 PM CDT 09/15/2024 12:17 PM CDT Chele Olivo MD LAB - CHEMISTRY ORDERABLES Final Result [facility] [address] [place], [place] [id number] [place] [address] * XR CHEST 2VW (09/15/2024 11:06 AM CDT) Anatomical Region Laterality Modality Chest Computed Radiogr aphy 09/15/2024 12:1 1 PM CDT Impressions 09/15/2024 12:11 PM CDT IMPRESSION: No acute cardiopulmonary abnormalities. > Interpreting Provider: Meng Egan MD on 09/15/2024 12:11 PM Narrative 09/15/2024 12:11 PM CDT PROCEDURE: XR CHEST 2VW DATE/TIME OF EXAM: 09/15/2024 11:11 AM CLINICAL INFORMATION: None relevant/not provided if blank. Indication: R07.9: Chest pain, unspecified type Additional History: FINDINGS: Cardiomegaly median sternotomy. Lungs are clear. No pleural effusion or pneumothorax. Procedure Note Meng Egan MD - 09/15/2024 PROCEDURE: XR CHEST 2VW DATE/TIME OF EXAM: 09/15/2024 11:11 AM CLINICAL INFORMATION: None relevant/not provided if blank. Indication: R07.9: Chest pain, unspecified type Additional History: FINDINGS: Cardiomegaly median sternotomy. Lungs are clear. No pleural effusion or pneumothorax. IMPRESSION: No acute cardiopulmonary abnormalities. > Interpreting Provider: Meng Egan MD on 09/15/2024 12:11 PM Chele Olivo MD DIAGNOSTIC IMAGING ORDERAB LES Final Result * TROPONIN-I HIGH SENSITIVE BASELINE + 1HR (09/15/2024 10:55 AM CDT) Only the most recent of2 resultswithin the time period is included. [facility] Troponin I High Sensitive 14 <=35 ng/L 09/15/2024 11:31 AM CDT [facility] Blood BLOOD SPECIMEN / Unknown Venipuncture / Unknown 09/15/2024 10:55 AM CDT 09/15/2024 11:03 AM CDT Chele Olivo MD LAB - CHEMISTRY ORDERABLES Final Result [facility] [address] * (ABNORMAL) PT-INR (09/15/2024 10:55 AM CDT) [facility] PT 14.0 11.3 - 14.8 sec 09/15/2024 11:17 AM CDT [facility] INR 1.08(L) 2 - 3 09/15/2024 11:17 AM CDT [facility] Blood BLOOD SPECIMEN / Unknown Venipuncture / Unknown 09/15/2024 10:55 AM CDT 09/15/2024 11:03 AM CDT Narrative [facility] - 09/15/2024 11:17 AM CDT Recommended therapeutic INR ranges for Oral Anticoagulant Therapy: 2.0-3.0 For prevention of Thrombosis or Embolism and treatment of Venous Thrombosis. 2.5- 3.5 for prevention of Recurrent Embolism or treatment of patients with Mechanical Prosthetic Heart Valves. Chele Olivo MD LAB - COAGULATION ORDERABL ES Final Result [facility] [address] * B-TYPE NATRIURETIC PEPTIDE (09/15/2024 10:55 AM CDT) [facility] BNP 49 10 - 100 pg/mL 09/15/2024 11:29 AM CDT [facility] Blood BLOOD SPECIMEN / Unknown Venipuncture / Unknown 09/15/2024 10:55 AM CDT 09/15/2024 11:03 AM CDT Chele Olivo MD LAB - CHEMISTRY ORDERABLES Final Result [facility] [address] [place] [address], [facility] * CT ABDOMEN AND PELVIS W IV CONTRAST [id number] (09/14/2024 5:09 PM CDT) Anatomical Region Laterality Modality Abdomen, Pelvis Computed Tomogra phy 09/15/2024 8:54 AM CDT Impressions 09/15/2024 8:56 AM CDT IMPRESSION: No acute findings. Hepatic steatosis. > Interpreting Provider: Meng Egan MD on 09/15/2024 8:56 AM Narrative 09/15/2024 8:56 AM CDT PROCEDURE: CT ABDOMEN PELVIS W CONTRAST DATE/TIME OF EXAM: 09/14/2024 5:26 PM CLINICAL INFORMATION: None relevant/not provided if blank. Indication: R07.9: Chest pain, unspecified type R10.84: Generalized abdominal pain Additional History: COMPARISON: None. TECHNIQUE: CT of the abdomen and pelvis was performed following intravenous contrast utilizing standard protocol. CT dose reduction technique was used, including Automated Exposure Control. CONTRAST: IOPAMIDOL 61 % IV SOLN:92 mL FINDINGS: Hepatic steatosis. Spleen within normal limits. The stomach, duodenum, pancreas, and adrenal glands are unremarkable. Kidneys enhance normally. No radiopaque gallstones or gallbladder wall thickening. No biliary ductal dilatation. No bowel wall thickening seen. No bowel obstruction. Colonic diverticulosis without diverticulitis. Chronic appearing T11 compression fracture. Prior vertebroplasty at L1. No acute osseous abnormality. Procedure Note Meng Egan MD - 09/15/2024 PROCEDURE: CT ABDOMEN PELVIS W CONTRAST DATE/TIME OF EXAM: 09/14/2024 5:26 PM CLINICAL INFORMATION: None relevant/not provided if blank. Indication: R07.9: Chest pain, unspecified type R10.84: Generalized abdominal pain Additional History: COMPARISON: None. TECHNIQUE: CT of the abdomen and pelvis was performed following intravenouscontrast utilizing standard protocol. CT dose reduction technique was used, including Automated ExposureControl. CONTRAST: IOPAMIDOL 61 % IV SOLN:92 mL FINDINGS: Hepatic steatosis. Spleen within normal limits. The stomach, duodenum, pancreas, and adrenal glands are unremarkable. Kidneys enhance normally.No radiopaque gallstones or gallbladder wall thickening. No biliary ductal dilatation. No bowel wall thickening seen. No bowel obstruction. Colonicdiverticulosis without diverticulitis. Chronic appearing T11 compression fracture. Prior vertebroplasty at L1.No acute osseous abnormality. IMPRESSION: No acute findings. Hepatic steatosis. > Interpreting Provider: Meng Egan MD on 09/15/2024 8:56 AM us Chele Olivo MD CT ORDERABLES Final Resu lt * XR CHEST 1 VW PORTABLE [id number] (09/14/2024 4:55 PM CDT) Anatomical Region Laterality Modality Chest Computed Radiogr aphy 09/14/2024 6:22 PM CDT Impressions 09/14/2024 6:23 PM CDT IMPRESSION: No radiographic evidence of active cardiac/pulmonary disease. > Interpreting Provider: Rocky Dawkins MD on 09/14/2024 6:23 PM Narrative 09/14/2024 6:23 PM CDT PROCEDURE: XR CHEST 1VW PORTABLE, DATE/TIME OF EXAM: 09/14/2024 4:55 PM, LOCATION [facility] INDICATION: R07.9: Chest pain, unspecified type ADDITIONAL CLINICAL INFORMATION: Ordering Provider Reason For Exam: Technologist Note: Additional: COMPARISON: None. SINGLE VIEW PORTABLE CHEST INDICATION: 59 year old Male with chest pain FINDINGS: A single view portable examination of the chest, 1639 hours, is reviewed without the benefit of prior studies. A post operative changes from a sternal splitting procedure. Temporary pacemaker wires are present. The heart size and pulmonary vasculature are normal. I do not see any pulmonary vascular congestion or interstitial edema. There is no pneumothorax or pleural effusion. Procedure Note Rocky Dawkins MD - 09/14/2024 PROCEDURE: XR CHEST 1VW PORTABLE, DATE/TIME OF EXAM: 09/14/2024 4:55PM, LOCATION [facility] INDICATION: R07.9: Chest pain, unspecified type ADDITIONAL CLINICAL INFORMATION: Ordering Provider Reason For Exam: Technologist Note: Additional: COMPARISON: None. SINGLE VIEW PORTABLE CHEST INDICATION: 59 year old Male with chest pain FINDINGS: A single view portable examination of the chest, 1639 hours,is reviewed without the benefit of prior studies. A post operative changes from a sternal splitting procedure. Temporary pacemaker wires are present. The heart size and pulmonary vasculature are normal. I do not see any pulmonary vascular congestion or interstitial edema. There is no pneumothorax or pleural effusion. IMPRESSION: No radiographic evidence of active cardiac/pulmonarydisease. > Interpreting Provider: Rocky Dawkins MD on 09/14/2024 6:23 PM [facility]alob[facility] LAB TECH-ELECTRON BEAM OPERATOR DIAGNOSTIC IMAGING ORDERAB LES Final Result * AMYLASE BLOOD (09/14/2024 4:31 PM CDT) Amylase 37 25 - 125 U/L 09/14/2024 5:24 PM CDT [facility] Blood BLOOD SPECIMEN / Unknown Venipuncture / Unknown 09/14/2024 4:31 PM CDT 09/14/2024 4:39 PM CDT Chele Olivo MD LAB - CHEMISTRY ORDERABLES Final Result [facility] [address] [place] [address], [facility] from Last [address] [place] [address] MEDICARE [facility] MANAGED MEDICARE ADV Advance Directives * Full Code (Latest Code Status on File) Date Activated Date Inactivated Comments 09/20/2024 2:46 PM 09/23/2024 3:17 PM Care Teams Felt Tipping Machine Tender Relationship Specialty Start Date End Date Jamal Reddy DO [id number] [place] [address] PCP - General 09/21/24
--- OUTSIDE RECORDS SUMMARY | 2024-09-26 02:56 | XMS_ITS ---
Author Organization [facility] Address [address] [place] [address] Care Team Providers Care Door Tender Name Role Phone CLEM JACK Unavailable [phone] Dr. Hank Jones Unavailable Unavailable REASON FOR VISIT Referral Status: pending PA Encounters Encounter Location Date Provider Diagnosis [id number] [address] [place], [place] [id number] 10/23/2023 CLEM JACK Plan Of Treatment No Information Progress Notes * Marcel SPENCER DDOB:1965 (58 yo M)Acc No.[id number]:10/23/2023 Patient: Ivana Marcel LUX :1965 A ge:58 Y S ex:Male Address:[address] [place] [address], [place], [address] * true * Date: Generated for Dima knight/Margarita/eTransmitting on: 0 09/26/2024 02:55 AM CDT
--- OUTSIDE RECORDS SUMMARY | 2024-09-26 02:56 | XMS_ITS | Continuity of Care Document ---
Author Organization [facility]. If a dditional information is needed, contact Health Information Management at [phone] [place] [address] Phone Care Team Providers Care District Superintendent Name Role Phone Unavailable Unavailable Unavailable Unavailable Unavailable Unavailable Unavailable Unavailable Unavailable Unavailable Unavailable Unavailable Unavailable Unavailable Unavailable Unavailable Unavailable Unavailable Unavailable Unavailable Unavailable Unavailable Unavailable Unavailable Unavailable Unavailable Unavailable Unavailable Unavailable Unavailable Unavailable Unavailable Unavailable Unavailable Unavailable Unavailable Unavailable Unavailable Unavailable Unavailable Unavailable Unavailable Unavailable Unavailable Unavailable Unavailable Unavailable Unavailable Unavailable Unavailable Unavailable Unavailable Unavailable Unavailable Unavailable Unavailable Unavailable Unavailable Unavailable Unavailable Unavailable Unavailable Unavailable Unavailable Unavailable Unavailable Unavailable Unavailable Unavailable Unavailable Unavailable Unavailable Unavailable Unavailable Unavailable Unavailable Unavailable Unavailable Unavailable Unavailable Unavailable Unavailable Unavailable Unavailable Unavailable Unavailable Unavailable Unavailable Unavailable Unavailable Unavailable Unavailable Unavailable Unavailable Unavailable Unavailable Unavailable Unavailable Unavailable Unavailable Unavailable Unavailable Unavailable Unavailable Unavailable Unavailable Unavailable Unavailable Unavailable Unavailable Unavailable Unavailable Unavailable Unavailable Unavailable Unavailable Unavailable Unavailable Unavailable Unavailable Unavailable Unavailable Unavailable Unavailable Unavailable Unavailable Unavailable Unavailable Unavailable Unavailable Unavailable Unavailable Unavailable Unavailable Unavailable Unavailable Unavailable Unavailable Unavailable Unavailable Unavailable Unavailable Unavailable Unavailable Unavailable Unavailable Unavailable Unavailable Unavailable Unavailable Unavailable Unavailable Unavailable Unavailable Unavailable Unavailable Unavailable Unavailable Unavailable Unavailable Unavailable Unavailable Unavailable Unavailable Unavailable Unavailable Unavailable Unavailable Unavailable Unavailable Unavailable Unavailable Unavailable Unavailable Unavailable Unavailable Unavailable Unavailable Unavailable Unavailable Unavailable Unavailable Unavailable Unavailable Unavailable Unavailable Unavailable Unavailable Unavailable Unavailable Unavailable Unavailable Unavailable Unavailable Unavailable Unavailable Unavailable Unavailable Unavailable Unavailable Unavailable Unavailable Unavailable Unavailable Unavailable Unavailable Unavailable Unavailable Unavailable Unavailable Unavailable Unavailable Unavailable Unavailable Unavailable Unavailable Unavailable Unavailable Unavailable Unavailable Unavailable Unavailable Unavailable Unavailable Unavailable Unavailable Unavailable Unavailable Unavailable Unavailable Unavailable Unavailable Unavailable Unavailable Unavailable Unavailable Unavailable Unavailable Unavailable Unavailable Unavailable Unavailable Unavailable Unavailable Unavailable Unavailable Unavailable Unavailable Unavailable Unavailable Unavailable Unavailable Unavailable Unavailable Unavailable Unavailable Unavailable Unavailable Unavailable Unavailable Unavailable Unavailable Unavailable Unavailable Unavailable Unavailable Unavailable Unavailable Unavailable Unavailable Unavailable Unavailable Unavailable Unavailable Unavailable Unavailable Unavailable Unavailable Unavailable Unavailable Unavailable Note Terese Roberto R1 MD- [facility] ([facility])Discharge SummaryREPORT#:[id number] REPORT STATUS: SignedDATE:09/12/24 TIME: 1205PATIENT: RAMAN BERNAL UNIT #: [id number]#: [id number] [facility]AGE[facility] 59 SEX: M ATTEND: Yasmine Cobb [facility] AUTHOR: Roberto Gudino MD R1REP SRV REP SRV TM: 1205* ALL edits or amendments must be made on the electronic/computer document *Roberto Gudino 09/12/24 1205:General InformationDischarge date: 09/12/24Discharge diagnosis:Noncardiac chest pain, resolvedAcute alcohol intoxicationType 2 diabetes mellitus not on chronic insulin, uncontrolledGERDParoxysmal atrial fibrillationCoronary artery disease status post triple-vessel CABG in 11/2023InsomniaHistory of seizure disorderEssential hypertensionHospital course:This is a 59-year-old male with past medical history inclusive of coronaryartery disease s/p triple-vessel CABG (2023), alcohol use, type 2 diabetesmellitus with peripheral neuropathy, stroke, seizure disorder on Keppra, AFib onEliquis, T12-L3 fracture s/p repair (2011) presenting with complaints of chestpain. Patient reports that he has been recently drinking, his last drink wasyesterday. States that he drinks 64 oz of Amish's hard lemonade daily. Hischest pain originates in the abdomen and radiates upwards. States that it wasworsened acutely after drinking. Rates pain as 6/10 in severity. Denies anycough, shortness of breath, nausea, vomiting.Of note, patient has been recently hospitalized multiple times with similarcomplaints. Last admission was on 09/09 and was discharged the following day.States that he had been drinking day of discharge.Assessment and planNoncardiac chest pain-Likely secondary to alcohol-induced gastritis-Tropes negative x2, BNP 147.5-EKG: Normal sinus rhythm, ventricular rate 92-Stress test 08/27/24: Abnormal with medium area mild fixed defect in inferiorsegments-Cardiac catheterization 08/29/2024: Essentially normal epicardial coronaryarteries, LVEF 55%-Resume home Plavix 75 mg p.o. daily, Lipitor 40 mg p.o. daily, Imdur 30 mg p.o.b.i.d., losartan 50 mg p.o. daily, metoprolol tartrate 25 mg p.o. b.i.d.,amlodipine 10 mg p.o. daily, Protonix 40 mg p.o. dailyAcute alcohol intoxication-Blood alcohol level 285 on admission-Drinks 64 oz of hard lemonade daily-Last drink yesterday, drinking since adolescence-CT abdomen and Pelvis 08/26/2024: Hepatic steatosisType 2 diabetes mellitus not on chronic insulin, uncontrolled-Blood glucose on admission 367-A1c 09/04/2024: 9.6GERD-Resume home Protonix 40 mg p.o. dailyParoxysmal atrial fibrillation-EKG: Normal sinus rhythm with a ventricular rate of 92-Chads Vasc: 3-Continue home metoprolol 25 mg p.o. b.i.d. Eliquis 5 mg p.o. b.i.d..Coronary artery disease status post triple-vessel CABG in 11/2023-Resume home Plavix 75 mg daily, Lipitor 40 mg daily, metoprolol p.o. 25 mgb.i.d., losartan p.o. 50 mg daily, Imdur 30 mg p.o. b.i.d.Insomnia-resume home trazodone 50 mg p.o. dailyHistory of seizure disorder-Patient has history of stroke and seizure during same hospitalization roughly 11/2 years ago.-Started on Keppra 500 mg b.i.d. at that time reports no subsequent episodes ofseizure activity.-Resume home Keppra 500 mg b.i.d.Essential hypertension-Resume home medication amlodipine p.o. 10 mg daily, losartan p.o. 50 mg daily,metoprolol tartrate 25 mg p.o. b.i.d.Patient's chronic conditions were managed, patient's vitals and labs weremonitored throughout the patient's stay. Patient was managed on inpatientfloors and never required upgraded new levels of care.Patient seen and examined on the day of discharge in stable condition. Patientis asked to follow up with PCP within 1-2 weeks. Discharge planning andinstructions were explained to the patient and the patient verbalizedunderstanding and agreed.Patient was asked to seek immediate medical attention for any new, recurring orworsening symptoms. Including going to the nearest ER/UC or by calling 911.Med RecMed RecDischarge meds:Continue taking these medications:Atorvastatin (Lipitor) 40 MG TAB 40 MILLIGRAM ORAL AT BEDTIMELosartan (Cozaar) 50 MG TAB 50 MILLIGRAM ORAL DAILY Comments: Hold if SBP<110, DBP<60traZODone (DesyreL) 50 MG TAB 50 MILLIGRAM ORAL AT BEDTIMEglipiZIDE (GlucotroL) 5 MG TAB 5 MILLIGRAM ORAL TWICE DAILYmetFORMIN (Glucophage) 1,000 MG TAB 1,000 MILLIGRAM ORAL TWICE DAILY WITH MEALSlevETIRAcetam (Keppra) 500 MG TAB 500 MILLIGRAM ORAL TWICE DAILYErgocalciferol (Vitamin D2) (Vitamin D2) 1,250 MCG (50,000 UNIT) CAP 1,250 MICROGRAM ORAL SuDulaglutide (Trulicity) 0.75 MG/0.5 ML PEN.INJCTR 0.75 MILLIGRAM SUBCUTANEOUS SuCyanocobalamin (Vitamin B-12) (Vitamin B-12) 1,000 MCG TAB 1,000 MICROGRAM ORAL DAILYFolic Acid (Folic Acid) 1 MG TAB 1 MILLIGRAM ORAL DAILYPyridoxine (Vitamin B6) (Vitamin B-6) 100 MG TAB 100 MILLIGRAM ORAL DAILYMagnesium Oxide (Mag-Ox 400) 400 MG (241.3 MG MAGNESIUM) TAB 400 MILLIGRAM ORAL DAILYamLODIPine (Norvasc) 10 MG TAB 10 MILLIGRAM ORAL DAILY Days = 30 Qty = 30 Comments: Hold if SBP<110, DBP<60clopidogreL (Plavix) 75 MG TAB 75 MILLIGRAM ORAL DAILY Days = 30 Qty = 30Apixaban (Eliquis) 5 MG TAB 5 MILLIGRAM ORAL TWICE DAILY Days = 30 Qty = 60Metoprolol Tartrate (Lopressor) 25 MG TAB 25 MILLIGRAM ORAL TWICE DAILY Days = 30 Qty = 60Isosorbide Mononitrate ER (Imdur) 30 MG TAB.ER.24H 30 MILLIGRAM ORAL TWICE DAILY Days = 30 Qty = 60Empagliflozin (Jardiance) 10 MG TAB 10 MILLIGRAM ORAL EVERY MORNINGMed List Information (*Med List Information) 1 EACH EACH 1 EACH MISCELLANEOUS .CANCEL AT DISCHARGE Instructions: Completed by [facility]: 09/11/2024PANTOPRAZOLE (PROTONIX) 40 MG TAB.EC 40 MILLIGRAM ORAL DAILY Days = 30 Qty = 39ObjectiveVS/I OLast Documented: Result Date Time B/P 135/74 09/12 0752 Pulse 92 09/12 0752 Pulse Ox 96 09/12 716 B/P Mean 94.5 09/12 07 O2 Delivery Room air 09/12 716 Temp 98.1 09/12 0717 Resp 18 09/12 [id number] hour I O ending at 0700: 09/12 0700 09/11 1900 Intake Total 120 Output Total Balance 120 Intake, Oral 120 Number 1 Bowel Movements Number Voids 2PATIENT WEIGHT:Weight (lb):Weight (oz):Weight (kg): 82.409ResultsFindings/Data:Laboratory Tests: 09/12 09/12 09/12 09/12 09/11 0718 0538 0346 0345 195 Chemistry Sodium (136 - 145 mmol/L) 141 Potassium (3.5 - 5.1 mmol/L) 3.8 Chloride (98 - 107 mmol/L) 107 Carbon Dioxide (20 - 31 mmol/L) 23 Anion Gap (7 - 16 mmol/L) 11 BUN (9 - 23 mg/dL) 6 L Creatinine (0.7 - 1.3 mg/dL) 0.9 Est GFR (CKD-EPI 2020) (>90.0) > 90 BUN/Creatinine Ratio (4 - 33) 6 Glucose (57 - 106 mg/dL) 180 H POC Glucose (70 - 110 mg/dl) 234 H 193 H 240 H Calcium (8.7 - 10.4 mg/dL) 8.3 L Phosphorus (2.4 - 5.1 mg/dL) 3.2 Magnesium (1.6 - 2.6 mg/dL) 1.5 L Total Bilirubin (0.3 - 1.2 mg/dL) 0.8 AST (0 - 34 U/L) 41 H ALT (10 - 49 U/L) 40 Alkaline Phosphatase (46 - 116 U/L) 115 Total Protein (5.7 - 8.2 g/dL) 6.1 Albumin (3.2 - 4.8 g/dL) 3.7 Globulin (1.4 - 4.8 g/dL) 2.4 Albumin/Globulin Ratio (0.7 - 3.6) 1.5 Hematology WBC (4.0 - 10.5 10 3/uL) 5.4 RBC (4.63 - 6.08 10 6/uL) 3.99 L Hgb (13.7 - 17.5 g/dL) 13.0 L Hct (40.1 - 51.0 %) 38.2 L MCV (79.0 - 92.2 fL) 95.7 H MCH (25.7 - 32.2 pg) 32.6 H MCHC (32.3 - 36.5 g/dL) 34.0 RDW (11.6 - 14.4 %) 14.9 H Plt Count (150 - 400 10 3/uL) 194 09/11 09/11 09/11 1823 1522 1216 Chemistry POC Glucose (70 - 110 mg/dl) 131 H 321 H C-Reactive Protein (0.0 - 0.5 mg/dL) < 0.5 Hematology ESR Westergren (0 - 20 mm/hr) 4Radiology data:Laboratory Tests Test Result Date Time Chemistry Sodium (136 - 145 mmol/L) 141 09/12 0346 Potassium (3.5 - 5.1 mmol/L) 3.8 09/12 0346 Chloride (98 - 107 mmol/L) 107 09/12 0346 Carbon Dioxide (20 - 31 mmol/L) 23 09/12 0346 Anion Gap (7 - 16 mmol/L) 11 09/12 0346 BUN (9 - 23 mg/dL) 6 L 09/12 0346 Creatinine (0.7 - 1.3 mg/dL) 0.9 09/12 0346 Est GFR (CKD-EPI 2020) (>90.0) > 90 09/12 0346 BUN/Creatinine Ratio (4 - 33) 6 09/12 0346 Glucose (57 - 106 mg/dL) 180 H 09/12 0346 POC Glucose (70 - 110 mg/dl) 234 H 09/12 0718 Calcium (8.7 - 10.4 mg/dL) 8.3 L 09/12 0346 Phosphorus (2.4 - 5.1 mg/dL) 3.2 09/12 0346 Magnesium (1.6 - 2.6 mg/dL) 1.5 L 09/12 0346 Total Bilirubin (0.3 - 1.2 mg/dL) 0.8 09/12 0346 AST (0 - 34 U/L) 41 H 09/12 345 ALT (10 - 49 U/L) 40 09/12 034 Alkaline Phosphatase (46 - 116 U/L) 115 09/12 345 Troponin I High Sens (<54 ng/L) 20 09/11 0640 C-Reactive Protein (0.0 - 0.5 mg/dL) < 0.5 09/11 1823 B-Natriuretic Peptide (0 - 100.0 pg/ml) 147.5 H 09/11 0523 Total Protein (5.7 - 8.2 g/dL) 6.1 09/12 345 Albumin (3.2 - 4.8 g/dL) 3.7 09/12 345 Globulin (1.4 - 4.8 g/dL) 2.4 09/12 345 Albumin/Globulin Ratio (0.7 - 3.6) 1.5 09/12 345 Hematology WBC (4.0 - 10.5 10 3/uL) 5.4 09/12 344 RBC (4.63 - 6.08 10 6/uL) 3.99 L 09/12 344 Hgb (13.7 - 17.5 g/dL) 13.0 L 09/12 344 Hct (40.1 - 51.0 %) 38.2 L 09/12 344 MCV (79.0 - 92.2 fL) 95.7 H 09/12 344 MCH (25.7 - 32.2 pg) 32.6 H 09/12 344 MCHC (32.3 - 36.5 g/dL) 34.0 09/12 344 RDW (11.6 - 14.4 %) 14.9 H 09/12 344 Plt Count (150 - 400 10 3/uL) 194 09/12 344 MPV (9.4 - 12.4 fL) 10.0 09/110 Immature Gran % (0.0 - 0.4 %) 0.2 09/110 Neutrophils % (34.0 - 67.9 %) 48.5 09/110 Lymphocytes % (21.8 - 53.1 %) 35.8 09/12 439 Monocytes % (5.3 - 12.2 %) 11.9 09/12 439 Eosinophils % (0.8 - 7.0 %) 2.6 09/110 Basophils % (0.2 - 1.2 %) 1.0 09/12 439 Nucleated RBC % (0.0 - 0.2 %) 0.0 09/12 439 Immature Gran # (0.00 - 0.03 10 3/uL) 0.01 09/110 Neutrophils # (1.78 - 5.38 10 3/uL) 2.45 09/110 Lymphocytes # (1.32 - 3.57 10 3/uL) 1.81 09/12 439 Monocytes # (0.30 - 0.82 10 3/uL) 0.60 09/12 439 Eosinophils # (0.04 - 0.54 10 3/uL) 0.13 09/12 439 Basophils # (0.01 - 0.08 10 3/uL) 0.05 09/12 439 Nucleated RBCs # (0.00 - 0.18 10 3/uL) 0.00 09/12 439 ESR Westergren (0 - 20 mm/hr) 4 09/11 1823 Toxicology Salicylates (0 - 20.0 mg/dL) < 3.0 09/12 439 Urine Opiates Screen (NEGATIVE) NEGATIVE 09/11 536 Ur Methadone, Qual (NEGATIVE) NEGATIVE 09/11 536 Urine Fentanyl Screen (NEGATIVE) NEGATIVE 09/11 536 Acetaminophen (10 - 30 ug/mL) < 2.0 L 09/12 439 Ur Barbiturates Screen (NEGATIVE) NEGATIVE 09/11 536 Ur Tricyclics Screen (NEGATIVE) NEGATIVE 09/11 536 Ur Amphetamine Screen (NEGATIVE) NEGATIVE 09/11 536 U Benzodiazepines Scrn (NEGATIVE) NEGATIVE 09/11 536 Urine Cocaine Screen (NEGATIVE) NEGATIVE 09/11 536 U Marijuana (THC) Screen (NEGATIVE) NEGATIVE 09/11 536 Alcohol, Quantitative (mg/dL) 233 09/11 0640Results: labs reviewed, vital signs reviewed, current med profile rev'dFree Text Obj NotesFree Text Obj Notes:General: Well nourished, well developed, in no acute distressHead and neck: head is normocephalic, atraumatic, and neck is supple. No JVDEyes, ears, nose, throat: EOMI. External structures of the nose and ears arewithout deformity. No leukoplakia. Sclera clear, oral mucosa dryLungs: Clear to auscultation bilaterally. No wheezing, ronchi, or rales.Cardiovascular: S1, S2 Regular rate and rhythm, no murmur. No peripheral edemaABD: soft, distended, non-tender. No hepatosplenomegaly is appreciated.Musculoskeletal: No joint pain, stiffness, or deformitySkin: Warm, dry, normal color and temperature. No jaundice, erythema, rash, orangiomata.Mentation: AOx3, mildly confused, lethargicCranial nerves II-XII grossly intactMotor: RUE Flexion 5/5, LUE Flexion 5/5, RUE Extension 5/5, LUE Extension 5/5,RLE hip flexion 5/5, LLE hip flexion 5/5, RLE knee extension 5/5, RLE kneeflexion 5/5, LLE knee flexion 5/5, LLE knee extension 5/5, RLE dorsiflexion 5/5,RLE plantarflexion 5/5, LLE dorsiflexion 5/5, LLE plantarflexion 5/5Coordination: Finger to nose intact, heel to hatch intactReflexes: R bicep 2+, L bicep 2+, R patellar 2+, L patellar 2+Sensation: intact bilaterallyGait: Not assessedDischarge InstructionsPCPPCP:PCP: Undefined Provider)( Discharge to: Home/Self CareDischarge InstructionsAdditional Discharge Routines: PCP Follow-UpDischarge management: greater than 30 minsTime spent: Time spent on patient care (minutes): 40Follow-up AppointmentsPCP follow up: PCP: Undefined Provider PCP follow up timeframe: In 1-2 weeksAttending Physician: Attending Physician: Yasmine Cobb MD ISABELLA MACKAY MD 09/14/242054:AttestationsTeaching Physician [id number] visit w/o resident:I saw the patient. I agree with the findings and the plan of careas documented in the resident s note.Time spent >40min at 1212 at 2056RPT#:[id number] OF REPORT Reza Carbajal MD-13-Sep-19 Activity Up ad gayathri Inderjit Britt-11-Sep-2024 [facility] ([facility])Pharmacy Prog.Note-Med RecREPORT#:[id number] REPORT STATUS: SignedDATE:09/11/24 TIME: 0710PATIENT: RAMAN BERNAL UNIT #: [id number]#: [id number] [facility]: [facility]: 59 SEX: M ATTEND: Yasmine Cobb MDADM AUTHOR: Marlen Jansen SRV REP SRV TM: 0710* ALL edits or amendments must be made on the electronic/computer document *Balwinder Jansen 09/11/24 0710:Pharmacy Med History ReviewPrimary Care ProviderPCP: PCP: Undefined ProviderPharmacy Med History ReviewSource of information: interviewed pt/caregiver, reviewed med claims data, D/CPAPERWORK 09/10/24Tomi Pelayo 09/11/24 1052:Pharmacy Med History ReviewPharmacy Med History ReviewAdmission Med Rec:Scheduled MedicationsamLODIPine (Norvasc) 10 MG PO DAILYApixaban (Eliquis) 5 MG PO BIDAtorvastatin (Lipitor) 40 MG PO BEDTIME (Reported)clopidogreL (Plavix) 75 MG PO DAILYCyanocobalamin (Vitamin B-12) (Vitamin B-12) 1,000 MCG PO DAILY (Reported)Dulaglutide (Trulicity) 0.75 MG SUBQ Grey (Reported)Empagliflozin (Jardiance) 10 MG PO QAM (Reported)Ergocalciferol (Vitamin D2) (Vitamin D2) 1,250 MCG PO Grey (Reported)Folic Acid 1 MG PO DAILY (Reported)glipiZIDE (GlucotroL) 5 MG PO BID (Reported)Isosorbide Mononitrate ER (Imdur) 30 MG PO BIDlevETIRAcetam (Keppra) 500 MG PO BID (Reported)Losartan (Cozaar) 50 MG PO DAILY (Reported)Magnesium Oxide (Mag-Ox 400) 400 MG PO DAILY (Reported)Med List Information (*Med List Information) 1 EA MISC .CANCEL AT DISCHARGE (Reported)metFORMIN (Glucophage) 1,000 MG PO BID MEALS (Reported)Metoprolol Tartrate (Lopressor) 25 MG PO BIDPANTOPRAZOLE (PROTONIX) 40 MG PO DAILYPyridoxine (Vitamin B6) (Vitamin B-6) 100 MG PO DAILY (Reported)traZODone (DesyreL) 50 MG PO BEDTIME (Reported)Discontinued MedicationsAcetaminophen (TylenoL) 325 MG PO Q6H PRN PRN PAIN (Reported) Discontinued reason: Patient stopped takingCarvediloL (Coreg) 3.125 MG PO BID PRN PRN SBP GREATER THAN 160 (Reported)Lidocaine 4% (Pain Relief Patch) 1 PATCH TRANSDERM DAILY Discontinued reason: Patient stopped takingAllergies:Coded Allergies:No Known Allergies (09/11/24)Med Rec actions: Med Rec actions: pt reviewed by pharmacist, home med list reviewed, updatedallergies, updated ADR information, issues clarifiedComments:Please call x [facility] extension with questions regarding the medicationreconciliation for this patient. Thank you! at 0711 at 1054RPT#:[id number] OF REPORT [id number] [facility] ([facility])Hospitalist History PhysicalREPORT#:[id number] REPORT STATUS: SignedDATE:09/11/24 TIME: 639PATIENT: BERNALRAMAN UNIT #: [id number]#: [id number] [facility]AGE: 59 SEX: M ATTEND: Yasmine Cobb MDA AUTHOR: Edward Duran MD R1REP SRV REP SRV TM: 0640* ALL edits or amendments must be made on the electronic/computer document *Edward Duran 09/11/24 0640:History of Present IllnessHPIChief complaint:Alcohol withdrawalPCP:PCP: Undefined ProviderHPI:This is a 59-year-old male with past medical history inclusive of coronaryartery disease s/p triple-vessel CABG (2023), alcohol use, type 2 diabetesmellitus with peripheral neuropathy, stroke, seizure disorder on Keppra, AFib onEliquis, T12-L3 fracture s/p repair (2011) presenting with complaints of chestpain. Patient reports that he has been recently drinking, his last drink wasyesterday. States that he drinks 64 oz of Amish's hard lemonade daily. Hischest pain originates in the abdomen and radiates upwards. States that it wasworsened acutely after drinking. Rates pain as 6/10 in severity. Denies anycough, shortness of breath, nausea, vomiting.Of note, patient has been recently hospitalized multiple times with similarcomplaints. Last admission was on 09/09 and was discharged the following day.States that he had been drinking day of discharge.HistoryPast medical history:Reports: Alcoholism/subst abuse, Coronary artery disease, Diabetes mellitus,Hypertension, Seizure disorder, Transient ischemic attack. Denies: COPD,Bleeding disorder.Additional medical history:coronary artery disease and CABG in 2023, alcohol use disorder, Paroxysmal AFib diabetes mellitus type 2 with neuropathy, history of stroke and seizurePast surgical history:Reports: CABG.Additional surgical history:T12-L3 vertebral fracture in 2010 with surgery in dditional family history:Family history significant for coronary artery disease in parentsAlcohol use: Alcohol use, Reports using since 59 oz hard lemonade twice daily,last drink todayDrug use: Denies recreational drugsSmoking status for patients 13 years old or older: Current every day smokerMedication/Allergy-Vaccine HxAllergies:Coded Allergies:No Known Allergies (09/11/24)Review of SystemsFree Text ROS NotesFree Text ROS Notes:Constitutional: Denies: chills, fever, generalized weakness, recent wt loss.Skin: Denies: bruising, itching, rash.Allergy/Immune: Denies: hives, itching, rhinorrhea.Eyes: Denies: redness, discharge, visual loss/blurred, eye pain.ENT: Denies: ear ringing, earache, mouth pain, nasal congestion, sore throat,throat pain.Respiratory: Denies: GONGORA (dyspnea on exertion), hemoptysis, non productive cough, pleuritic pain, productive cough (sputum), SOB, wheezing.Cardiovascular: Endorses: Chest pain Denies: GONGORA (dyspnea on exertion), edema,palpitations.GI: Endorses: Abdominal pain Denies: constipation, diarrhea, hematemesis,hematochezia, nausea, vomiting.: Denies: dysuria, frequency, hematuria.Musculoskeletal: Denies: joint pain, joint swelling, myalgias.Heme: Denies: bleeding, bruising.Endocrine: Denies: cold intolerance, heat intolerance, polydipsia, polyuria,weight gain, weight loss.Neuro: Denies: confusion, dizziness, focal weakness, headache, numbness.ObjectiveGeneralVS/I O:Vital Signs: Date Time Temp Pulse Resp B/P B/P Pulse O2 O2 Flow FiO2 Mean Ox Delivery Rate 09/11 0728 36.5 87 18 136/78 97.0 98 Room air 09/11 0705 80 96 09/11 0635 84 98 09/11 0615 87 98 09/11 0600 87 09/11 0530 84 97 09/11 0528 86 18 106/65 95 Room air 09/11 0500 88 99 09/11 0440 90 98 09/11 0431 36.5 91 16 128/75 99 Room air24 hour I O ending at 0700: 09/11 0700 09/10 1900 Intake Total Output Total Balance Patient 82.409 kg Weight Weight Stated/Reported Measurement MethodPATIENT WEIGHT:Weight (lb):Weight (oz):Weight (kg): 82.409Medications:Active Meds + DC'd Last 24 HrsAtorvastatin Calcium (LIPITOR 40MG TABLET) 40 MG BEDTIME POTrazodone HCl (traZODone 50 MG TABLET) 50 MG BEDTIME POInsulin Human Lispro (HumaLOG INSULIN) REGULAR SLIDING SCALE COVERAGE 61-150 MG/DL, 0 UNITS 151-200 MG/DL, 1 UNITS 201-250 MG/DL, 2 UNITS 251-300 MG/DL, 3 UNITS 301-350 MG/DL, 4 UNITS 351-399 MG/DL, 5 UNITS >= 400, 5 UNITS AND OBTAIN STAT BS AND CALL RESULTS TO PHYSICIAN AC HS SUBQAmlodipine Besylate (NORVASC 5 MG TABLET) 10 MG DAILY POApixaban (ELIQUIS 5 MG TABLET) 5 MG BID POClopidogrel Bisulfate (PLAVIX 75 MG TAB) 75 MG DAILY POFolic Acid (FOLIC ACID 1MG TABLET) 1 MG DAILY POIsosorbide Mononitrate (IMDUR 30MG TABLET SA) 30 MG BID PO (PEND)Levetiracetam (KEPPRA 500 MG TABLET) 500 MG BID POLosartan Potassium (COZAAR 50 MG TABLET) 50 MG DAILY POMetoprolol Tartrate (LOPRESSOR 25 MG TABLET) 25 MG BID POMultivitamins/Minerals Therapeutic (THERAPEUTIC VIT/MIN TABLET) 1 TAB DAILY POPantoprazole Sodium Sesquihydrate (PROTONIX 40 MG TABLET) 40 MG DAILY POSodium Chloride (NORMAL SALINE LOCK/FLUSH) 10 ML Q12HR IVThiamine HCl (VITAMIN B1 100MG TABLET) 100 MG DAILY PODextrose (GLUCOSE 4 GM TABLET) 16 GM ASDIR PRN PODextrose/Water (DEXTROSE 50%/WATER 50 ML ABBOJECT) If patient unable toswallow and has IV access * blood sugar 60-69 mg/dl- hold insulin and administer 15 mL (7.5 grams); * Blood sugar 50-59 mg/dl- hold insulin and administer 20 mL (10 grams); * Blood sugar 30-49 mg/dl- hold insulin and administer 25 mL (12.5 grams); * Blood sugar < 30 mg/dl- hold insulin and administer 30 mL (15 grams) recheck in 15 minutes and notify physician for further instruction ASDIR PRN IVLorazepam (ATIVAN 2 MG/1 ML VIAL) 2 MG Q1H PRN PRN IVLorazepam (ATIVAN 2 MG/1 ML VIAL) 4 MG Q1H PRN PRN IVOndansetron HCl (ONDANSETRON 2 MG/ML SDV VIAL) 4 MG Q8H PRN PRN IVLorazepam (ATIVAN 2 MG/1 ML VIAL) 1 MG X1ED STA IV (DC)Morphine Sulfate (morphine SULFATE 2 MG/ML INJ (FK)) 2 MG X1ED STA IV (DC)Sodium Chloride (NORMAL SALINE LOCK/FLUSH) 10 ML ASDIR PRN IVLorazepam (ATIVAN 2 MG/1 ML VIAL) 1 MG X1ED STA IV (DC)Potassium Chloride (K-DUR 20 MEQ TABLET SA) 40 MEQ X1ED STA PO (DC)Aspirin (ASPIRIN 81MG TABLET CHEW) 324 MG X1ED STA PO (DC)ResultsFindings/Data:Laboratory Tests 09/11 09/11 09/11 09/11 0640 0523 [id number] Chemistry Sodium (136 - 145 mmol/L) 143 Potassium (3.5 - 5.1 mmol/L) 3.3 L Chloride (98 - 107 mmol/L) 108 H Carbon Dioxide (20 - 31 mmol/L) 23 Anion Gap (7 - 16 mmol/L) 12 BUN (9 - 23 mg/dL) 7 L Creatinine (0.7 - 1.3 mg/dL) 1.1 Est GFR (CKD-EPI 2020) (>90.0) 76.9 L BUN/Creatinine Ratio (4 - 33) 6 Glucose (57 - 106 mg/dL) 367 H POC Glucose (70 - 110 mg/dl) 379 H Calcium (8.7 - 10.4 mg/dL) 8.4 L Total Bilirubin (0.3 - 1.2 mg/dL) 0.4 AST (0 - 34 U/L) 49 H ALT (10 - 49 U/L) 52 H Alkaline Phosphatase (46 - 116 U/L) 129 H Troponin I High Sens (<54 ng/L) 20 24 B-Natriuretic Peptide (0 - 100.0 pg/ml) 147.5 H Total Protein (5.7 - 8.2 g/dL) 6.6 Albumin (3.2 - 4.8 g/dL) 4.1 Globulin (1.4 - 4.8 g/dL) 2.5 Albumin/Globulin Ratio (0.7 - 3.6) 1.6Laboratory Tests 09/11 0440 Hematology WBC (4.0 - 10.5 10 3/uL) 5.1 RBC (4.63 - 6.08 10 6/uL) 4.02 L Hgb (13.7 - 17.5 g/dL) 13.2 L Hct (40.1 - 51.0 %) 38.8 L MCV (79.0 - 92.2 fL) 96.5 H MCH (25.7 - 32.2 pg) 32.8 H MCHC (32.3 - 36.5 g/dL) 34.0 RDW (11.6 - 14.4 %) 14.9 H Plt Count (150 - 400 10 3/uL) 209 MPV (9.4 - 12.4 fL) 10.0 Immature Gran % (0.0 - 0.4 %) 0.2 Neutrophils % (34.0 - 67.9 %) 48.5 Lymphocytes % (21.8 - 53.1 %) 35.8 Monocytes % (5.3 - 12.2 %) 11.9 Eosinophils % (0.8 - 7.0 %) 2.6 Basophils % (0.2 - 1.2 %) 1.0 Nucleated RBC % (0.0 - 0.2 %) 0.0 Immature Gran # (0.00 - 0.03 10 3/uL) 0.01 Neutrophils # (1.78 - 5.38 10 3/uL) 2.45 Lymphocytes # (1.32 - 3.57 10 3/uL) 1.81 Monocytes # (0.30 - 0.82 10 3/uL) 0.60 Eosinophils # (0.04 - 0.54 10 3/uL) 0.13 Basophils # (0.01 - 0.08 10 3/uL) 0.05 Nucleated RBCs # (0.00 - 0.18 10 3/uL) 0.00Laboratory Tests 09/11 09/11 09/11 0640 0537 0440 Toxicology Salicylates (0 - 20.0 mg/dL) < 3.0 Urine Opiates Screen (NEGATIVE) NEGATIVE Ur Methadone, Qual (NEGATIVE) NEGATIVE Urine Fentanyl Screen (NEGATIVE) NEGATIVE Acetaminophen (10 - 30 ug/mL) < 2.0 L Ur Barbiturates Screen (NEGATIVE) NEGATIVE Ur Tricyclics Screen (NEGATIVE) NEGATIVE Ur Amphetamine Screen (NEGATIVE) NEGATIVE U Benzodiazepines Scrn (NEGATIVE) NEGATIVE Urine Cocaine Screen (NEGATIVE) NEGATIVE U Marijuana (THC) Screen (NEGATIVE) NEGATIVE Alcohol, Quantitative (mg/dL) 233 285Radiology data:Recent Impressions:RADIOLOGY - CHEST PORTABLE 09/11 0931 Report Impression - Status: SIGNED Entered: 09/11/2024 0525IMPRESSION:The cardiomediastinal silhouette is unremarkable.Nondisplaced sternotomy wires.No evidence of focal airspace consolidation, pulmonary edema,pleural effusions, or pneumothorax.The osseous structures are unremarkable.Electronically signed by: Yoel Butler DO 09/11/2024 05:22 AMEDT RPWorkstation: [id number] By: CLAUDIA Butler DOResults: labs reviewed, vital signs reviewed, current med profile rev'dFree Text Obj NotesFree Text Obj Notes:General: Well nourished, well developed, in no acute distressHead and neck: head is normocephalic, atraumatic, and neck is supple. No JVDEyes, ears, nose, throat: EOMI. External structures of the nose and ears arewithout deformity. No leukoplakia. Sclera clear, oral mucosa dryLungs: Clear to auscultation bilaterally. No wheezing, ronchi, or rales.Cardiovascular: S1, S2 Regular rate and rhythm, no murmur. No peripheral edemaABD: soft, distended, non-tender. No hepatosplenomegaly is appreciated.Musculoskeletal: No joint pain, stiffness, or deformitySkin: Warm, dry, normal color and temperature. No jaundice, erythema, rash, orangiomata.Mentation: AOx3, mildly confused, lethargicCranial nerves II-XII grossly intactMotor: RUE Flexion 5/5, LUE Flexion 5/5, RUE Extension 5/5, LUE Extension 5/5,RLE hip flexion 5/5, LLE hip flexion 5/5, RLE knee extension 5/5, RLE kneeflexion 5/5, LLE knee flexion 5/5, LLE knee extension 5/5, RLE dorsiflexion 5/5,RLE plantarflexion 5/5, LLE dorsiflexion 5/5, LLE plantarflexion 5/5Coordination: Finger to nose intact, heel to hatch intactReflexes: R bicep 2+, L bicep 2+, R patellar 2+, L patellar 2+Sensation: intact bilaterallyGait: Not assessedDiagnosis, Assessment PlanFree Text DxA P NotesFree Text DxA P Notes:This is a 59-year-old male with past medical history inclusive of coronaryartery disease s/p triple-vessel CABG (2023), alcohol use, type 2 diabetesmellitus with peripheral neuropathy, stroke, seizure disorder on Keppra, AFib onEliquis, T12-L3 fracture s/p repair (2011) presenting with complaints of chestpain.Assessment and planNoncardiac chest pain-Likely secondary to alcohol-induced gastritis-Tropes negative x2, BNP 147.5-EKG: Normal sinus rhythm, ventricular rate 92-Stress test 08/27/24: Abnormal with medium area mild fixed defect in inferiorsegments-Cardiac catheterization 08/29/2024: Essentially normal epicardial coronaryarteries, LVEF 55%-Resume home Plavix 75 mg p.o. daily, Lipitor 40 mg p.o. daily, Imdur 30 mg p.o.b.i.d., losartan 50 mg p.o. daily, metoprolol tartrate 25 mg p.o. b.i.d.,amlodipine 10 mg p.o. daily, Protonix 40 mg p.o. daily-ESR, CRP ordered, follow upAcute alcohol intoxication-Blood alcohol level 285 on admission-Drinks 64 oz of hard lemonade daily-Last drink yesterday, drinking since adolescence-CT abdomen and Pelvis 08/26/2024: Hepatic steatosis-[facility]-DSM protocol in place , Ativan p.r.n., thiamine, folic acidType 2 diabetes mellitus not on chronic insulin, uncontrolled-Blood glucose on admission 367-A1c 09/04/2024: 9.6-Hold home Jardiance 10 mg p.o. daily, glipizide 5 mg p.o. b.i.d., [id number] mg p.o. b.i.d.- Ordered sliding scale insulin, Accu-Cheks. Hypoglycemic precautions on board-calculate 24-hour insulin requirement and adjust basal bolus regimenGERD-Resume home Protonix 40 mg p.o. dailyParoxysmal atrial fibrillation-EKG: Normal sinus rhythm with a ventricular rate of 92-Chads Vasc: 3-Continue home metoprolol 25 mg p.o. b.i.d. Eliquis 5 mg p.o. b.i.d..Coronary artery disease status post triple-vessel CABG in 11/2023-Resume home Plavix 75 mg daily, Lipitor 40 mg daily, metoprolol p.o. 25 mgb.i.d., losartan p.o. 50 mg daily, Imdur 30 mg p.o. b.i.d.Insomnia-resume home trazodone 50 mg p.o. dailyHistory of seizure disorder-Patient has history of stroke and seizure during same hospitalization roughly 11/2 years ago.-Started on Keppra 500 mg b.i.d. at that time reports no subsequent episodes ofseizure activity.-Resume home Keppra 500 mg b.i.d.Essential hypertension-Resume home medication amlodipine p.o. 10 mg daily, losartan p.o. 50 mg daily,metoprolol tartrate 25 mg p.o. b.i.d.VTE prophylaxis: Eliquis 5 mg po BIDFENTNS 125 cc/hoursHypokalemiaHeart healthy carb controlled dietTelemetry not indicatedDisposition:-Recent cardiac catheterization negative-Chest pain likely related to alcohol-induced gastritis-CIWA protocol in place-ESR, CRP ordered, follow-upPatient seen and examined at bedside with Dr. Cobb, attending physician.YASMINE COBB MD 09/15/24 1436:AttestationsPhysician AttestationAgree w/findings plan:Supervising Physician NoteResident Saw PatientThis patient was seen by a resident. I have personally seen the patient,performed the critical or martinez portions of the service, and participated in themanagement of the patient. I have reviewed and agree with the resident's note,and I have reviewed all labs and imaging studies or reports. I agree with thisresident's findings, exam and plan. at 1347 at 1437RPT#:[id number] OF REPORT [id number] [facility] ([facility])EMERGENCY PROVIDER REPORTREPORT#:[id number] REPORT STATUS: SignedDATE:09/11/24 TIME: 045PATIENT: RAMAN BERNAL UNIT #: [id number]#: [id number] ROOM/BED: [place] [id number]: 64 AGE: 59 SEX: M PCP PHYS: Undefined ProviderSERVICE AUTHOR: Brendan Rgoers MD R2REP SRV REP SRV TM: 0457* ALL edits or amendments must be made on the electronic/computer document *Brendan Rogers 09/11/24 0457:HPI-General IllnessFree Text HPI NotesFree Text HPI NotesThe patient is a 59-year-old male with a history of diabetes type 2, cardiachistory with triple bypass, R side dyastilic heart failure and presenting to theemergency department for not feeling well. Patient reports epigastric abdominalpain as well as pain radiating up into his chest on the left side. He alsoendorses lower back pain rated 8/10. Patient states he has a history ofosteomyelitis that has been treated and is currently on oral antibiotics. Hereports having a headache and pain in his right ankle. Patient mentions he waspreviously admitted and discharged from this hospital where he had a fullcardiac evaluation. He states he drinks alcohol every day. Patient deniesdiarrhea, constipation, vomiting blood, or blood in stool.GeneralInitial Greet Date/Time 09/11/24 0428PresentationChief Complaint Not feeling wellPortions of this section were scribed by Oscar Desir on 09/11/24 at 0457Review of SystemsROS StatementsAll systems rev neg except as marked.Complete sys rev neg except as marked.Free Text ROS NotesFree Text ROS NotesConstitutional: Reports feeling unwellHEENT: Reports headacheCardiovascular: Reports chest painRespiratory: Reports shortness of breath with exertionGastrointestinal: Reports epigastric abdominal pain, denies nausea, vomiting,diarrhea, constipationGenitourinary: Denies dysuria, frequency, urgencyMusculoskeletal: Reports lower back pain, right ankle painNeurological: Denies weakness, numbness, tinglingPsychiatric: Denies suicidal ideationPortions of this section were scribed by Oscar Desir on 09/11/24 at 0457Past Medical History - AdultStated Complaint DONT FEEL WELLAllergiesCoded Allergies:No Known Allergies (09/11/24)Home MedicationsActive ScriptsPANTOPRAZOLE (PROTONIX) 40 MG PO DAILY 30 Days #39 TAB Ref 1 Prov: 09/10/24amLODIPine (Norvasc) 10 MG PO DAILY 30 Days #30 TAB Ref 1 Prov: 08/29/24clopidogreL (Plavix) 75 MG PO DAILY 30 Days #30 TAB Ref 4 Prov: 08/29/24Apixaban (Eliquis) 5 MG PO BID 30 Days #60 TAB Ref 2 Prov: 08/29/24Metoprolol Tartrate (Lopressor) 25 MG PO BID 30 Days #60 TAB Ref 3 Prov: 08/29/24Isosorbide Mononitrate ER (Imdur) 30 MG PO BID 30 Days #60 TAB.ER.24H Ref 2 Prov: 08/29/24Discontinued ScriptsLidocaine 4% (Pain Relief Patch) 1 PATCH TRANSDERM DAILY 14 Days #14 PATCH Prov: 08/29/24 DC: 09/04/242251 Patient stopped takingReported MedicationsMed List Information (*Med List Information) 1 EA MISC .CANCEL AT DISCHARGEglipiZIDE (GlucotroL) 5 MG PO BIDErgocalciferol (Vitamin D2) (Vitamin D2) 1,250 MCG PO SuDulaglutide (Trulicity) 0.75 MG SUBQ SuCyanocobalamin (Vitamin B- 12) (Vitamin B-12) 1,000 MCG PO DAILYFolic Acid 1 MG PO DAILYPyridoxine (Vitamin B6) (Vitamin B-6) 100 MG PO DAILYMagnesium Oxide (Mag-Ox 400) 400 MG PO DAILYAtorvastatin (Lipitor) 40 MG PO BEDTIMEtraZODone (DesyreL) 50 MG PO BEDTIMEmetFORMIN (Glucophage) 1,000 MG PO BID MEALSlevETIRAcetam (Keppra) 500 MG PO BIDLosartan (Cozaar) 50 MG PO DAILYEmpagliflozin (Jardiance) 10 MG PO QAMDiscontinued Reported MedicationsCarvediloL (Coreg) 3.125 MG PO BID PRN PRN SBP GREATER THAN 160Acetaminophen (TylenoL) 325 MG PO Q6H PRN PRN PAINCalculated Suicide Risk (nurs) No riskPast Medical History:Reports: Alcoholism/subst abuse, Coronary artery disease, Diabetes mellitus,Hypertension, Seizure disorder, Transient ischemic attack. Denies: COPD,Bleeding disorder.Additional Medical Historycoronary artery disease and CABG in 2023, alcohol use disorder, Paroxysmal AFib diabetes mellitus type 2 with neuropathy, history of stroke and seizurePast Surgical History:Reports: CABG.Additional Surgical PbxoxedU24-G9 vertebral fracture in 2011 with surgery in 2012Additional Family HistoryFamily history significant for coronary artery disease in parentsAlcohol Use Alcohol use, Reports using since 59 oz hard lemonade twice daily,last drink todayDrug Use Denies recreational drugsSmoking status for patients 13 years old or older: Current every day smokerPortions of this section were scribed by Oscar Desir on 09/11/24 at 0457Physical ExamVital SignsReview of Vital Signs ReviewedFree Text PE NotesFree Text PE NotesGeneral: Alert and orientedHEENT: Hearing impairedCardiovascular: Regular rate and rhythmRespiratory: Clear to auscultation bilaterallyAbdominal: Tender to palpation in epigastric region, soft, non-distendedMusculoskeletal: Lower back tenderness, right ankle painNeurological: HeadacheSkin: Intact, warm, dryPortions of this section were scribed by Oscar Desir on 09/11/24 at 0457Interpretation DiagnosticsLab Results Interpretation Lab StatementLaboratory studies reviewed and considered in the medical decision-making. Imaging StatementRadiographic studies reviewed and considered in the medical decision-making. Lab Imaging StatementLaboratory radiographic studies reviewed and considered in the medicaldecision-making.Portions of this section were scribed by Oscar Desir on 09/11/24 at 0457Re-Evaluation MDMFree Text MDM NotesAdditional TextThe patient is a 59-year-old male with a history of diabetes type 2, cardiachistory with triple bypass, R side dyastilic heart failure and presenting to theemergency department for not feeling well. Patient reports epigastric abdominalpain as well as pain radiating up into his chest on the left side. He alsoendorses lower back pain rated 8/10. He reports having a headache and pain inhis right ankle. [facility] He states he drinksalcohol every day. Patient denies diarrhea, constipation, vomiting blood, orblood in stool.The patient is a 59-year-old male presenting with multiple complaints includingepigastric abdominal pain, chest pain, lower back pain, headache, and rightankle pain. Given his history of recent cardiac surgery and current symptoms, acardiac etiology needs to be ruled out. The patient's chronic alcohol use andrecent hospital discharge also raise concerns for potential withdrawal orexacerbation of underlying conditions.Dx include but not limited to:1. Acute coronary syndrome2. Alcohol withdrawal3. Chronic pain exacerbation4. Diabetic complications5. Recurrent osteomyelitisHistory Obtained From: PatientPersonally viewed and interpreted the following:EKG interpretation: n/aX- ray interpretation: n/aCT interpretation: n/aUltrasound interpretation: n/aED Course: On initial review vital signs are stable, patient is afebrile.Patient's complaints are multifactorial and require a comprehensive workup.Given his cardiac history and chest pain, an EKG and cardiac enzymes wereordered. A complete blood count and comprehensive metabolic panel were alsoordered to assess for infection, electrolyte imbalances, and liver functiongiven his alcohol use. A chest x-ray was ordered to evaluate for anycardiopulmonary pathology.Treatment: Pain management was initiated with non-opioid analgesics given thepatient's history of alcohol use. Intravenous fluids were started for hydrationand to prepare for potential medication administration. The patient was placedon cardiac monitoring.Where medical history was obtained from: PatientPersonally Reviewed and interpreted the following: EKG, CBC, CMP, chest x-ray,troponinsPatient reassessed alcohol level 285, alk-phos 128, AST 49 ALT 52, glucose 367,Patient reassessed, remains mildly intoxicated, discussed need for admission,will Marchman act patient, patient is currently unsafe to go home at this time,will admit patient for intractable pain, and social work, egg caser consultfor his chronic alcohol abuse, patient is currently agreeable stay, howeverthreatening to leave, discussed Mayman act with patient,Decision rules scores evaluated:Medications given during visit: ASA 325, 1 mg IV lorazepam, 2 mg IV morphine,Discussed case with: PatientCode Status: Full codeShared decision making: Extensive shared decision making was utilized whendetermining the below disposition.Disposition: Results as above discussed with patient. Will admit patient to thehospitalist team for intoxication, chest pain, patient is also Marchman acted,Dictation - This chart was prepared in part using voice recognition software andthus may contain unintended word substitutions or dictation errors despitereasonable efforts to screen for and correct such errors. If there are anyquestions regarding intended documentation please contact medical records.The provider obtained consent from the patient to record the conversation anduse AI to create a draft version of the note. The provider made edits (whereappropriate and necessary) and signed the note. This signed note will be part ofthe medical record.Differential DiagnosisDifferential Diagnosis Pneumonia, ACS, Drug intoxication, Alcohol intoxicationPortions of this section were scribed by Oscar Desir on 09/11/24 at 0457Patient Discharge DepartureClinical ImpressionClinical ImpressionPrimary Impression: Chest painDisposition DecisionHospitalize Hosp Physician Hospitalist Request Time 545 Request Date 09/11/24 )( Accepts Hospitalization Yes )( Reason for HospitalizationIntoxication, chest pain )( Accepted Time 545 )( Accepted Date 09/11/24 Call Information will see patientDischarge/Care PlanCounseled Regarding Diagnosis, Lab results, Imaging studies, Need for admissionReferralsProvider Referral: Undefined Provider Admit NoteI have spoken with the patient and/or caregivers. I have explained the patient'scondition, diagnoses and treatment plan based on the information available to meat this time. I have answered the patient's and/or caregiver's questions andaddressed any concerns. The patient and/or caregivers have as good anunderstanding of the patient's diagnosis, condition and treatment plan as can beexpected at this point. The patient has been stabilized within the [facility] emergency [facility]. The patient will be transported for further care andmanagement or will be moved to an observation or inpatient service. I havecommunicated with the staff or medical practitioner taking over this patient'scare.Portions of this section were scribed by Oscar Desir on 09/11/24 at 0457AMIGUEL AYALA MD 09/11/24 0530:Physical ExamVital SignsVital SignsFirst Documented: Result Date Time Pulse Ox 99 09/11 0431 B/P 128/75 09/111 O2 Delivery Room air 09/11 430 Temp 36.5 09/11 430 Pulse 91 09/11 043 Resp 16 09/11 0431Last Documented: Result Date Time Pulse Ox 95 09/11 0528 B/P 106/65 09/11 0428 O2 Delivery Room air 09/12 527 Pulse 86 09/12 527 Resp 18 09/12 527 Temp 36.5 09/11 0431Interpretation DiagnosticsLab Results InterpretationResultsLaboratory Tests09/11/24 0440:[Embedded Image Not Available]Laboratory Tests: 09/11 09/11 09/11 09/11 0537 0523 0440 0436Chemistry Sodium (136 - 145 mmol/L) 143 Potassium (3.5 - 5.1 mmol/L) 3.3 L Chloride (98 - 107 mmol/L) 108 H Carbon Dioxide (20 - 31 mmol/L) 23 Anion Gap (7 - 16 mmol/L) 12 BUN (9 - 23 mg/dL) 7 L Creatinine (0.7 - 1.3 mg/dL) 1.1 Est GFR (CKD-EPI 2020) (>90.0) 76.9 L BUN/Creatinine Ratio (4 - 33) 6 Glucose (57 - 106 mg/dL) 367 H POC Glucose (70 - 110 mg/dl) 379 H Calcium (8.7 - 10.4 mg/dL) 8.4 L Total Bilirubin (0.3 - 1.2 mg/dL) 0.4 AST (0 - 34 U/L) 49 H ALT (10 - 49 U/L) 52 H Alkaline Phosphatase (46 - 116 U/L) 129 H Troponin I High Sens (<54 ng/L) 24 B-Natriuretic Peptide (0 - 100.0 pg/ml) 147.5 H Total Protein (5.7 - 8.2 g/dL) 6.6 Albumin (3.2 - 4.8 g/dL) 4.1 Globulin (1.4 - 4.8 g/dL) 2.5 Albumin/Globulin Ratio (0.7 - 3.6) 1.6Hematology WBC (4.0 - 10.5 10 3/uL) 5.1 RBC (4.63 - 6.08 10 6/uL) 4.02 L Hgb (13.7 - 17.5 g/dL) 13.2 L Hct (40.1 - 51.0 %) 38.8 L MCV (79.0 - 92.2 fL) 96.5 H MCH (25.7 - 32.2 pg) 32.8 H MCHC (32.3 - 36.5 g/dL) 34.0 RDW (11.6 - 14.4 %) 14.9 H Plt Count (150 - 400 10 3/uL) 209 MPV (9.4 - 12.4 fL) 10.0 Immature Gran % (0.0 - 0.4 %) 0.2 Neutrophils % (34.0 - 67.9 %) 48.5 Lymphocytes % (21.8 - 53.1 %) 35.8 Monocytes % (5.3 - 12.2 %) 11.9 Eosinophils % (0.8 - 7.0 %) 2.6 Basophils % (0.2 - 1.2 %) 1.0 Nucleated RBC % (0.0 - 0.2 %) 0.0 Immature Gran # (0.00 - 0.03 10 3/uL) 0.01 Neutrophils # (1.78 - 5.38 10 3/uL) 2.45 Lymphocytes # (1.32 - 3.57 10 3/uL) 1.81 Monocytes # (0.30 - 0.82 10 3/uL) 0.60 Eosinophils # (0.04 - 0.54 10 3/uL) 0.13 Basophils # (0.01 - 0.08 10 3/uL) 0.05 Nucleated RBCs # (0.00 - 0.18 10 3/uL) 0.00Toxicology Salicylates (0 - 20.0 mg/dL) < 3.0 Urine Opiates Screen (NEGATIVE) NEGATIVE Ur Methadone, Qual (NEGATIVE) NEGATIVE Acetaminophen (10 - 30 ug/mL) < 2.0 L Ur Barbiturates Screen (NEGATIVE) NEGATIVE Ur Amphetamine Screen (NEGATIVE) NEGATIVE U Benzodiazepines Scrn (NEGATIVE) NEGATIVE U Marijuana (THC) Screen (NEGATIVE) NEGATIVE Alcohol, Quantitative (mg/dL) 285Recent Impressions:RADIOLOGY - CHEST PORTABLE 09/11 3581 Report Impression - Status: SIGNED Entered: 09/11/2024 0525IMPRESSION:The cardiomediastinal silhouette is unremarkable.Nondisplaced sternotomy wires.No evidence of focal airspace consolidation, pulmonary edema,pleural effusions, or pneumothorax.The osseous structures are unremarkable.Electronically signed by: Yoel Butler DO 09/11/2024 05:22 AMEDT RPWorkstation: [id number] By: CLAUDIA Robertson-Evaluation MDMED CourseMedication(s) OrderedMedication(s) Ordered:Central Nervous System Agents Sig/Darshana Start time Last Medication Dose Route Stop Time Status Admin Lorazepam 1 MG X1ED STA 09/11 0543 DC IV 09/11 0544 Aspirin 324 MG X1ED STA 09/11 0446 DC 09/11 PO 09/11 0447 0500Electrolytic, Caloric, And Lety Sig/Darshana Start time Last Medication Dose Route Stop Time Status Admin Potassium Chloride 40 MEQ X1ED STA 09/11 0538 DC PO 09/11 0539Patient Discharge DepartureVital Signs/ConditionVital SignsFirst Documented: Result Date Time Pulse Ox 99 09/11 0431 B/P 128/75 09/11 0431 O2 Delivery Room air 09/11 0431 Temp 36.5 09/11 0431 Pulse 91 09/11 0431 Resp 16 09/11 0431Last Documented: Result Date Time Pulse Ox 95 09/11 0528 B/P 106/65 09/11 0528 O2 Delivery Room air 09/11 0528 Pulse 86 09/11 0528 Resp 18 09/11 0528 Temp 36.5 09/11 0431All vital signs available at the time of this entry have been reviewed.Supervising Physician Note Resident Saw PtThis patient was seen by a resident. I have personally seen the patient,performed the critical or martinez portions of the service, and participated in themanagement of the patient. I have reviewed and agree with the resident's note,and I have reviewed all labs, ECGs, and imaging studies or reports. I agree withthis resident's findings, exam and plan. at 0607RPT#:[id number] OF REPORT Chava Parsons MD --Aug-2024 [facility] ([facility])Discharge SummaryREPORT#:[id number] REPORT STATUS: SignedDATE:09/10/24 TIME: 1427PATIENT: RAMAN BERNAL UNIT #: [id number]#: [id number] [facility]AGE: 59 SEX: M ATTEND: Colton Nolan AUTHOR: Alessandro Larsen MD R2REP SRV REP SRV TM: 1427* ALL edits or amendments must be made on the electronic/computer document * See AddendumSarita Larsen 09/10/24 1427:General InformationDischarge date: 09/10/24Discharge diagnosis:Noncardiac chest painAcute Alcohol intoxicationType 2 diabetes mellitus, uncontrolledParoxysmal AFibCoronary artery disease s/p CABG in 11/2023Essential hypertensionHospital course:This is a 59-year-old male with past medical history of coronary artery diseaseand CABG in 2023, alcohol use disorder, diabetes mellitus type 2 with neuropathy, history of stroke and seizure on Keppra who presents due to the ED with chiefcomplaint of chest pain. Patient reports that he is visiting his brother Becca from [place]. His nephew recently and he has been drinkingmore alcohol than usual. This morning he woke up and started having constantleft-sided chest pain. Patient states that since his CABG in 12/10 he has beenhaving constant chest pain which is progressively worsened located towards midsternal region, nonradiating, rated 8/10 in severity, described it as sharp/sorepain, aggravated with cough, no alleviating factors and denies any associatedshortness of breath, change in vision, headaches, nausea/vomiting.Assessment and planNoncardiac chest pain-Etiology likely secondary to Costochodritis vs Gastritis-Tropes negative x2, BNP 38.6-EKG: Normal sinus rhythm, HR 86, Q-wave in inferior leads but not acute-History: Was recently hospitalized for similar complaint underwent cardiaccatheterization with no stents placed, echocardiogram LVEF 55-60% with grade 1diastolic dysfunction-PE:Midsternal postsurgical scar, tenderness to palpation in mid sternal andleft lateral chest region, pain reproducible with palpation Regular rate andrhythm, no murmur, no peripheral edema.-Patient is started on nitro SL, Tylenol p.o. 650 mg p.r.n., resumed Plavix 75mg daily, losartan 50, amlodipine p.o. 10 mg daily, Imdur p.o. 30 mg b.i.d,metoprolol p.o. 25 mg b.i.d, atorvastatin p.o. 40 mg bedtime-We will start him on pantoprazole 40 mg p.o. daily.Acute alcohol intoxication-Blood alcohol levels on admission: 332- Patient states he drinks 64 oz of hard lemonade twice daily, last drink wastoday. Has been drinking alcohol since adoloscence. States he used to bedependent narcotics and replaced with alcohol.-CT abdomen and Pelvis from 08/25/2024 reveals hepatic steatosis-[facility] protocol in place , Ativan p.r.n., thiamine, folic acidType 2 diabetes mellitus, uncontrolled-Blood glucose on admission 232 HBA1C 9.6-Hold home medications-Ordered aggressive sliding scale insulin, Accu-Cheks. Hypoglycemic precautionson board-calculate 24-hour insulin requirement and adjust basal bolus regimenParoxysmal atrial fibrillation-EKG: Normal sinus rhythm with a ventricular rate of 78. No ST segment or T-wave changes.-Chads Vasc :3-Continue home metoprolol 25 mg p.o. b.i.d. Eliquis 5 mg p.o. b.i.d..Coronary artery disease status post CABG in 11/2023-Resume home medication Plavix 75 mg daily, Lipitor 40 mg daily, metoprolol p.o.25 mg b.i.d., losartan p.o. 50 mg dailyHistory of seizure disorder-Patient has history of stroke and seizure during same hospitalization roughly 11/2 years ago. Patient was started on Keppra 500 mg b.i.d. at that time reportsno subsequent episodes of seizure activity.-Continue Keppra 500 mg b.i.d.Essential hypertension-Resume home medication amlodipine p.o. 10 mg daily, losartan p.o. 50 mg dailyPatient's chronic conditions were managed, patient's vitals and labs weremonitored throughout the patient's stay. Patient was managed on inpatientfloors and never required upgraded new levels of care.Patient seen and examined on the day of discharge in stable condition. Patientis asked to follow up with PCP within 1-2 weeks. Discharge planning andinstructions were explained to the patient and the patient verbalizedunderstanding and agreed.ObjectiveVS/I OLast Documented: Result Date Time Pulse Ox 93 09/10 1057 B/P 135/74 09/10 1057 B/P Mean 94.3 09/10 1057 O2 Delivery Room air 09/10 1057 Temp 36.5 09/10 1057 Pulse 82 09/10 1057 Resp 18 09/10 150421 hour I O ending at 0700: 09/10 0700 09/09 1900 Intake Total Output Total Balance Patient 80.455 kg Weight Weight Stated/Reported Measurement MethodPATIENT WEIGHT:Weight (lb):Weight (oz):Weight (kg): 80.455ResultsFindings/Data:Laboratory Tests: 09/10 09/10 09/10 09/09 09/09 1115 0603 0323 1942 193Chemistry Sodium (136 - 145 mmol/L) 145 Potassium (3.5 - 5.1 mmol/L) 3.5 Chloride (98 - 107 mmol/L) 110 H Carbon Dioxide (20 - 31 mmol/L) 24 Anion Gap (7 - 16 mmol/L) 11 BUN (9 - 23 mg/dL) 8 L Creatinine (0.7 - 1.3 mg/dL) 0.8 Est GFR (CKD-EPI 2020) (>90.0) > 90 BUN/Creatinine Ratio (4 - 33) 10 Glucose (57 - 106 mg/dL) 138 H POC Glucose (70 - 110 mg/dl) 214 H 167 H 279 H Calcium (8.7 - 10.4 mg/dL) 7.7 L Phosphorus (2.4 - 5.1 mg/dL) 2.5 Magnesium (1.6 - 2.6 mg/dL) 1.8 Total Bilirubin (0.3 - 1.2 mg/dL) 0.3 AST (0 - 34 U/L) 52 H ALT (10 - 49 U/L) 50 H Alkaline Phosphatase (46 - 116 U/L) 107 Troponin I High Sens (<54 ng/L) 40 Total Protein (5.7 - 8.2 g/dL) 5.3 L Albumin (3.2 - 4.8 g/dL) 3.2 Globulin (1.4 - 4.8 g/dL) 2.1 Albumin/Globulin Ratio (0.7 - 3.6) 1.5Hematology WBC (4.0 - 10.5 10 3/uL) 4.8 RBC (4.63 - 6.08 10 6/uL) 3.54 L Hgb (13.7 - 17.5 g/dL) 11.5 L Hct (40.1 - 51.0 %) 34.3 L MCV (79.0 - 92.2 fL) 96.9 H MCH (25.7 - 32.2 pg) 32.5 H MCHC (32.3 - 36.5 g/dL) 33.5 RDW (11.6 - 14.4 %) 15.1 H Plt Count (150 - 400 10 3/uL) 202 MPV (9.4 - 12.4 fL) 9.8 Immature Gran % (0.0 - 0.4 %) 0.2 Neutrophils % (34.0 - 67.9 %) 43.4 Lymphocytes % (21.8 - 53.1 %) 41.3 Monocytes % (5.3 - 12.2 %) 9.8 Eosinophils % (0.8 - 7.0 %) 4.1 Basophils % (0.2 - 1.2 %) 1.2 Nucleated RBC % (0.0 - 0.2 %) 0.0 Immature Gran # (0.00 - 0.03 10 3/uL) 0.01 Neutrophils # (1.78 - 5.38 10 3/uL) 2.09 Lymphocytes # (1.32 - 3.57 10 3/uL) 1.99 Monocytes # (0.30 - 0.82 10 3/uL) 0.47 Eosinophils # (0.04 - 0.54 10 3/uL) 0.20 Basophils # (0.01 - 0.08 10 3/uL) 0.06 Nucleated RBCs # (0.00 - 0.18 10 3/uL) 0.00 /24 09/09 09/09 1603 1554 1554 Chemistry Sodium (136 - 145 mmol/L) 143 Potassium (3.5 - 5.1 mmol/L) 3.8 Chloride (98 - 107 mmol/L) 109 H Carbon Dioxide (20 - 31 mmol/L) 23 Anion Gap (7 - 16 mmol/L) 11 BUN (9 - 23 mg/dL) 6 L Creatinine (0.7 - 1.3 mg/dL) 0.9 Est GFR (CKD-EPI 2020) (>90.0) > 90 BUN/Creatinine Ratio (4 - 33) 6 Glucose (57 - 106 mg/dL) 269 H Calcium (8.7 - 10.4 mg/dL) 7.8 L Total Bilirubin (0.3 - 1.2 mg/dL) 0.2 L AST (0 - 34 U/L) 64 H ALT (10 - 49 U/L) 59 H Alkaline Phosphatase (46 - 116 U/L) 124 H Troponin I High Sens (<54 ng/L) 31 B-Natriuretic Peptide (0 - 100.0 pg/ml) 57.8 Total Protein (5.7 - 8.2 g/dL) 6.0 Albumin (3.2 - 4.8 g/dL) 3.7 Globulin (1.4 - 4.8 g/dL) 2.3 Albumin/Globulin Ratio (0.7 - 3.6) 1.6 Lipase (12 - 53 U/L) 29 Hematology WBC (4.0 - 10.5 10 3/uL) 5.8 RBC (4.63 - 6.08 10 6/uL) 3.82 L Hgb (13.7 - 17.5 g/dL) 12.4 L Hct (40.1 - 51.0 %) 36.7 L MCV (79.0 - 92.2 fL) 96.1 H MCH (25.7 - 32.2 pg) 32.5 H MCHC (32.3 - 36.5 g/dL) 33.8 RDW (11.6 - 14.4 %) 14.9 H Plt Count (150 - 400 10 3/uL) 187 MPV (9.4 - 12.4 fL) 9.4 Immature Gran % (0.0 - 0.4 %) 0.3 Neutrophils % (34.0 - 67.9 %) 50.4 Lymphocytes % (21.8 - 53.1 %) 39.9 Monocytes % (5.3 - 12.2 %) 5.9 Eosinophils % (0.8 - 7.0 %) 2.8 Basophils % (0.2 - 1.2 %) 0.7 Nucleated RBC % (0.0 - 0.2 %) 0.0 Immature Gran # (0.00 - 0.03 10 3/uL) 0.02 Neutrophils # (1.78 - 5.38 10 3/uL) 2.93 Lymphocytes # (1.32 - 3.57 10 3/uL) 2.32 Monocytes # (0.30 - 0.82 10 3/uL) 0.34 Eosinophils # (0.04 - 0.54 10 3/uL) 0.16 Basophils # (0.01 - 0.08 10 3/uL) 0.04 Nucleated RBCs # (0.00 - 0.18 10 3/uL) 0.00 Serology COVID-19 (JAIME) (Negative) Negative Influenza Type A Ag (NEGATIVE) NEGATIVE Influenza Type B Ag (NEGATIVE) NEGATIVE Toxicology Alcohol, Quantitative (mg/dL) 331 CHInterpretationI independently reviewed the [ ] and my interpretation is [ ]Free Text Obj NotesFree Text Obj Notes:General: Well nourished, well developed, in no distressHead and neck: head is normocephalic, atraumatic, and neck is supple. No JVDEyes, ears, nose, throat: EOMI. External structures of the nose and ears arewithout deformity. No leukoplakia. Sclera clear, oral mucosa moist.Lymphatics: No lymphadenopathy or tendernessLungs: Clear to auscultation. No wheezing, ronchi, or rales.Cardiovascular: Midsternal postsurgical scar, Regular rate and rhythm, nomurmur. No peripheral edemaChest wall: Pain reproducible with palpation in mid sternal, left lateral chestregionABD: soft, non-distended, non-tender. No hepatosplenomegaly is appreciated.Musculoskeletal: No joint pain, stiffness, or deformity, T12-L3 postsurgicalvertical scar noted, tenderness to palpation in lower lumbar regionExtremities: Right calcaneal scar from previous surgerySkin: Warm, dry, normal color and temperature. No jaundice, erythema, rash, orangiomata.Neuro: Alert and oriented to person place and time. No focal deficit orweakness.Mental Status: No hallucinations or agitationDischarge InstructionsPCPPCP:PCP: Walker Lui MD)( Discharge to: Home/Self CareDischarge InstructionsAdditional Discharge Routines: PCP Follow-Up)( Diet: Resume Home Diet/Feeds)( Activity: Resume Normal Activity, As ToleratedFollow-up AppointmentsPCP follow up: PCP: Db Turcios MD PCP follow up timeframe: In 1-2 weeksAttestationsTeaching Physician [id number] visit w/o resident:I performed a history and physical examination of the patient and discussed withthe resident. I have reviewed the resident's note and . . .agree with the findings and plan as documented in the resident's note.agree with the findings and plan as documented in the resident's note EXCEPT:COLTON NOLAN 09/15/24 1904:Med RecMed RecDischarge meds:Continue taking these medications:Atorvastatin (Lipitor) 40 MG TAB 40 MILLIGRAM ORAL AT BEDTIMELosartan (Cozaar) 50 MG TAB 50 MILLIGRAM ORAL DAILY Comments: Hold if SBP<110, DBP<60traZODone (DesyreL) 50 MG TAB 50 MILLIGRAM ORAL AT BEDTIMEglipiZIDE (GlucotroL) 5 MG TAB 5 MILLIGRAM ORAL TWICE DAILYmetFORMIN (Glucophage) 1,000 MG TAB 1,000 MILLIGRAM ORAL TWICE DAILY WITH MEALSlevETIRAcetam (Keppra) 500 MG TAB 500 MILLIGRAM ORAL TWICE DAILYErgocalciferol (Vitamin D2) (Vitamin D2) 1,250 MCG (50,000 UNIT) CAP 1,250 MICROGRAM ORAL SuDulaglutide (Trulicity) 0.75 MG/0.5 ML PEN.INJCTR 0.75 MILLIGRAM SUBCUTANEOUS SuCyanocobalamin (Vitamin B-12) (Vitamin B-12) 1,000 MCG TAB 1,000 MICROGRAM ORAL DAILYFolic Acid (Folic Acid) 1 MG TAB 1 MILLIGRAM ORAL DAILYPyridoxine (Vitamin B6) (Vitamin B-6) 100 MG TAB 100 MILLIGRAM ORAL DAILYMagnesium Oxide (Mag-Ox 400) 400 MG (241.3 MG MAGNESIUM) TAB 400 MILLIGRAM ORAL DAILYamLODIPine (Norvasc) 10 MG TAB 10 MILLIGRAM ORAL DAILY Days = 30 Qty = 30 Comments: Hold if SBP<110, DBP<60clopidogreL (Plavix) 75 MG TAB 75 MILLIGRAM ORAL DAILY Days = 30 Qty = 30Apixaban (Eliquis) 5 MG TAB 5 MILLIGRAM ORAL TWICE DAILY Days = 30 Qty = 60Metoprolol Tartrate (Lopressor) 25 MG TAB 25 MILLIGRAM ORAL TWICE DAILY Days = 30 Qty = 60Isosorbide Mononitrate ER (Imdur) 30 MG TAB.ER.24H 30 MILLIGRAM ORAL TWICE DAILY Days = 30 Qty = 60Empagliflozin (Jardiance) 10 MG TAB 10 MILLIGRAM ORAL EVERY MORNINGMed List Information (*Med List Information) 1 EACH EACH 1 EACH MISCELLANEOUS .CANCEL AT DISCHARGE Instructions: Completed by [facility]: 09/11/2024Start taking the following new medications:PANTOPRAZOLE (PROTONIX) 40 MG TAB.EC 40 MILLIGRAM ORAL DAILY Days = 30 Qty = 39 Refills = 1AttestationsTeaching Physician [id number] visit w/ resident:I personally completed an interview and physical examination of the patient. Thepatient's medical record was reviewed. I discussed the case with the residentand participated in the management and discharge of the patient. I agree withthe resident's findings and plan as documented. The patient's current medicationlist was also reviewed and is accurate to the best of my knowledge. The time Ispent on this patient's discharge work was greater than 30 minutes. at 1434Addendum 1: 09/11/24 1045 by Alessandro Larsen MD R1 for Edgard Nolan MDHospital course:This is a 59-year-old male with past medical history of coronaryartery disease and CABG in 2023, alcohol use disorder, diabetes mellitus type 2with neuropathy, history of stroke and seizure on Kera who presents due to theED with chief complaint of chest pain. Patient reports that he is visiting hisbrother in [place] from [place]. Patient was hospitalized 1 week ago for similarcomplaint. His nephew recently and he has been drinking morealcohol than usual, on admission patient's troponin negative x2,EKG: Normalsinus rhythm, HR 86, Q-wave in inferior leads but not acute. CXR was orderedand showed no acute cardiopulmonary disease. On physical examination, chest wallwas tender on palpation/pain was reproducible with palpation. Patient wastreated for noncardiac chest pain, likely secondary to gastritis versusmusculoskeletal, Given the history of chronic alcoholism patient was started onProtonix 40 mg daily, resumed his home medications, received Imdur 30 mg in thehospital, reassess the patient the afternoon status his chest pain is improvedand would like to get discharge and follow up with primary care and painmanagement clinic. Counseled about alcohol cessation. At the time of dischargegave the referral to PCP, recommended to follow up in 1-2 weeks. at 1055RPT#:[id number] OF REPORT Omar Collins-09-Sep-2024 [facility] ([facility])Pharmacy Prog.Note-Med RecREPORT#:[id number] REPORT STATUS: SignedDATE:09/09/24 TIME: ATIENT: BERNALRAMAN UNIT #: [id number]#: [id number] [facility]AGE: 59 SEX: M ATTEND: Colton Nolan MDADM AUTHOR: Karina NelsonREP SRV REP SRV TM: 2040* ALL edits or amendments must be made on the electronic/computer document *Karina Nelson 09/09/242040:Pharmacy Med History ReviewPrimary Care ProviderPCP: PCP: Walker Lui Med History ReviewSource of information: reviewed med claims data, DISCHARGE PACKET 09/05/24Tomi Pelayo 09/10/24 1159:Pharmacy Med History ReviewPharmacy Med History ReviewAdmission Med Rec:Scheduled MedicationsamLODIPine (Norvasc) 10 MG PO DAILYApixaban (Eliquis) 5 MG PO BIDAtorvastatin (Lipitor) 40 MG PO BEDTIME (Reported)clopidogreL (Plavix) 75 MG PO DAILYCyanocobalamin (Vitamin B-12) (Vitamin B-12) 1,000 MCG PO DAILY (Reported)Dulaglutide (Trulicity) 0.75 MG SUBQ Grey (Reported)Empagliflozin (Jardiance) 10 MG PO QAM (Reported)Ergocalciferol (Vitamin D2) (Vitamin D2) 1,250 MCG PO Grey (Reported)Folic Acid 1 MG PO DAILY (Reported)glipiZIDE (GlucotroL) 5 MG PO BID (Reported)Isosorbide Mononitrate ER (Imdur) 30 MG PO BIDlevETIRAcetam (Keppra) 500 MG PO BID (Reported)Losartan (Cozaar) 50 MG PO DAILY (Reported)Magnesium Oxide (Mag-Ox 400) 400 MG PO DAILY (Reported)Med List Information (*Med List Information) 1 EA MISC .CANCEL AT DISCHARGE (Reported)metFORMIN (Glucophage) 1,000 MG PO BID MEALS (Reported)Metoprolol Tartrate (Lopressor) 25 MG PO BIDPyridoxine (Vitamin B6) (Vitamin B-6) 100 MG PO DAILY (Reported)traZODone (DesyreL) 50 MG PO BEDTIME (Reported)Discontinued MedicationsAcetaminophen (TylenoL) 325 MG PO Q6H PRN PRN PAIN (Reported) Discontinued reason: Patient stopped takingCarvediloL (Coreg) 3.125 MG PO BID PRN PRN SBP GREATER THAN 160 (Reported)Lidocaine 4% (Pain Relief Patch) 1 PATCH TRANSDERM DAILY Discontinued reason: Patient stopped takingAllergies:Coded Allergies:No Known Allergies (08/26/24)Med Rec actions: Med Rec actions: pt reviewed by pharmacist, home med list reviewed, updatedallergies, updated ADR information, issues clarifiedComments:Please call x [facility] extension with questions regarding the medicationreconciliation for this patient. Thank you! at 2042 at 1202RPT#:[id number] OF REPORT JANENE Travis MD-10-Sep-19 25 [facility] ([facility])Hospitalist History PhysicalREPORT#:[id number] REPORT STATUS: SignedDATE:09/09/24 TIME: 1856PATIENT: RAMAN BERNAL UNIT #: [id number]#: [id number] ROOM/BED: KF7N-HBCH: 63AGE: 59 SEX: M ATTEND: Colton Nolan MDADM AUTHOR: CLAUDIA RAMIREZ MD R2REP SRV REP SRV TM: 185* ALL edits or amendments must be made on the electronic/computer document *Claudia Ramirez 09/09/241856:History of Present IllnessHPIChief complaint:Chest painPCP:PCP: Walker Lui MDHPI:This is a 59-year-old male with past medical history of coronary artery diseaseand CABG in 2023, alcohol use disorder, diabetes mellitus type 2 with neuropathy, history of stroke and seizure on Keppra who presents due to the ED with chiefcomplaint of chest pain. Patient reports that he is visiting his brother Becca from [place]. His nephew recently and he has been drinkingmore alcohol than usual. This morning he woke up and started having constantleft-sided chest pain. Patient states that since his CABG in 12/10 he has beenhaving constant chest pain which is progressively worsened located towards midsternal region, nonradiating, rated 8/10 in severity, described it as sharp/sorepain, aggravated with cough, no alleviating factors and denies any associatedshortness of breath, change in vision, headaches, nausea/vomiting.Patient was recently hospitalized for similar complaint, had new onset AFib withRVR started on Cardizem later on converted to NSR and underwent cardiaccatheterization which was unremarkable and he had an ejection fraction of 55%with grade 1 diastolic dysfunction.Hx Obtained From PatientHistoryPast medical history:Reports: Alcoholism/subst abuse, Coronary artery disease, Diabetes mellitus,Hypertension, Seizure disorder, Transient ischemic attack. Denies: COPD,Bleeding disorder.Additional medical history:coronary artery disease and CABG in 2023, alcohol use disorder, Paroxysmal AFib diabetes mellitus type 2 with neuropathy, history of stroke and seizurePast surgical history:Reports: CABG.Additional surgical history:T12-L3 vertebral fracture in 2010 with surgery in 2012Additional family history:Family history significant for coronary artery disease in parentsAlcohol use: Alcohol use, Reports using since 59 oz hard lemonade twice daily,last drink todayDrug use: Denies recreational drugsSmoking status for patients 13 years old or older: Current every day smokerPacks per day: 0.5Years smoked: 8Medication/Allergy- Vaccine HxMedications:Home Medications:Medication Dose/Rte/Freq Days Qty Entered Last Max Daily Dose Reviewed glipiZIDE (GlucotroL) 5 MG PO BID 08/26/24Strength: 5 MG TAB 0358 Ergocalciferol (Vitamin D2) 1,250 MCG PO Grey 08/26/24 (Vitamin D2) 0715rength: 1,250 MCG (50,000UNIT) CAP Dulaglutide (Trulicity) 0.75 MG SUBQ Grey 08/26/24Strength: 0.75 MG/0.5 ML 0717PEN.INJCTR Cyanocobalamin (Vitamin 1,000 MCG PO DAILY 08/26/24 B-12) 07 (Vitamin B-12)Strength: 1,000 MCG TAB Folic Acid 1 MG PO DAILY 08/26/24Strength: 1 MG TAB 07 Pyridoxine (Vitamin B6) 100 MG PO DAILY 08/26/24 (Vitamin B-6) 07Strength: 100 MG TAB Magnesium Oxide 400 MG PO DAILY 08/26/24 (Mag-Ox 400) rength: 400 MG (241.3 MGMAGNESIUM) TAB Atorvastatin (Lipitor) 40 MG PO BEDTIME 08/26/24Strength: 40 MG TAB 0357 traZODone (DesyreL) 50 MG PO BEDTIME 08/26/24Strength: 50 MG TAB 0358 metFORMIN (Glucophage) 1,000 MG PO 08/26/24Strength: 1,000 MG TAB BID MEALS 0358 levETIRAcetam (Keppra) 500 MG PO BID 08/26/24Strength: 500 MG TAB 0359 Losartan (Cozaar) 50 MG PO DAILY 08/26/24Strength: 50 MG TAB 0358 Empagliflozin (Jardiance) 10 MG PO QAM 09/04/24Strength: 10 MG TAB 224 amLODIPine (Norvasc) 10 MG PO DAILY 30 30 08/29/24Strength: 10 MG TAB 1403 clopidogreL (Plavix) 75 MG PO DAILY 30 30 08/29/24Strength: 75 MG TAB 1421 Apixaban (Eliquis) 5 MG PO BID 30 60 08/29/24Strength: 5 MG TAB 1454 Metoprolol Tartrate 25 MG PO BID 30 60 08/29/24 (Lopressor) 1514Strength: 25 MG TAB Isosorbide Mononitrate ER 30 MG PO BID 30 60 08/29/24 (Imdur) 1518Strength: 30 MG TAB.ER.24HCurrent Hospital Medications:Blood Formation,Coagulation Sig/Darshana Start time Last Medication Dose Route Stop Time Status Admin Clopidogrel Bisulfate 75 MG DAILY 09/10 899 AC (PLAVIX 75 MG TAB) POCardiovascular Drugs Sig/Darshana Start time Last Medication Dose Route Stop Time Status Admin Amlodipine Besylate 10 MG DAILY 09/10 899 AC (NORVASC 5 MG TABLET) PO Losartan Potassium 50 MG DAILY 09/10 899 AC (COZAAR 50 MG TABLET) PO Atorvastatin Calcium 40 MG BEDTIME 09/09 2099 AC 09/09 (LIPITOR 40MG TABLET) PO 2027 Isosorbide 30 MG BID 09/09 2099 AC 09/09 Mononitrate PO 2027 (IMDUR 30MG TABLET SA) Metoprolol Tartrate 25 MG BID 09/09 2099 AC 09/09 (LOPRESSOR 25 MG PO 2029 TABLET)Central Nervous System Agents Sig/Darshana Start time Last Medication Dose Route Stop Time Status Admin Levetiracetam 500 MG BID 09/09 2099 AC 09/09 (KEPPRA 500 MG PO 2027 TABLET) Trazodone HCl 50 MG BEDTIME 09/09 2099 AC 09/09 (traZODone 50 MG PO 2026 TABLET) Lorazepam 2 MG Q1H PRN PRN 09/09 184 AC (ATIVAN 2 MG/1 ML IV VIAL) Lorazepam 4 MG Q1H PRN PRN 09/09 184 AC (ATIVAN 2 MG/1 ML IV VIAL) Ketorolac 15 MG X1ED STA 09/09 1340 DC 09/09 Tromethamine IV 09/09 1341 1422 (TORADOL 15 MG/ML VIAL)Devices Sig/Darshana Start time Last Medication Dose Route Stop Time Status Admin Sodium Chloride 10 ML Q12HR 09/09 2099 AC 09/09 (NORMAL SALINE LOCK/ IV 2031 FLUSH) Sodium Chloride 10 ML ASDIR PRN 09/09 1830 AC (NORMAL SALINE LOCK/ IV FLUSH)Electrolytic, Caloric, And Lety Sig/Darshana Start time Last Medication Dose Route Stop Time Status Admin Dextrose 16 GM ASDIR PRN 09/09 1857 AC (GLUCOSE 4 GM TABLET) PO Dextrose/Water See Dose ASDIR PRN 09/09 185 AC (DEXTROSE 50%/WATER Insts (1) IV 50 ML ABBOJECT) Sodium Chloride 1,000 ML X1ED STA 09/09 1334 DC 09/09 (SODIUM CHLORIDE IV 09/09 1433 1424 0.9% 1000 ML SOLN)Gastrointestinal Drugs Sig/Darshana Start time Last Medication Dose Route Stop Time Status Admin Pantoprazole Sodium 40 MG DAILY@0609/10 0600 AC Sesquihydrate PO (PROTONIX 40 MG TABLET)Hormones And Synthetic Substit Sig/Darshana Start time Last Medication Dose Route Stop Time Status Admin Insulin Human Regular See Dose AC HS 09/09 2100 AC 09/09 (HUMULIN R 100 UNITS/ Insts (2) SUBQ 2027 ML VIAL)Skin And Mucous Membrane Agent Sig/Darshana Start time Last Medication Dose Route Stop Time Status Admin Lidocaine 1 PATCH X1ED STA 09/09 1340 DC 09/09 (LIDOCAINE 4% PATCH) TRANSDERM 09/09 1341 1422Vitamins Sig/Darshana Start time Last Medication Dose Route Stop Time Status Admin Folic Acid 1 MG DAILY 09/09 1848 AC 09/09 (FOLIC ACID 1MG PO 2026 TABLET) Thiamine HCl 100 MG DAILY 09/098 AC 09/09 (VITAMIN B1 100MG PO 2037 TABLET)Dose Instructions:(1)Dextrose/Water (DEXTROSE 50%/WATER 50 ML ABBOJECT): If patient unable to swallow and has IV access * blood sugar 60-69 mg/dl- hold insulin and administer 15 mL (7.5 grams); * Blood sugar 50-59 mg/dl- hold insulin and administer 20 mL (10 grams); * Blood sugar 30-49 mg/dl- hold insulin and administer 25 mL (12.5 grams); * Blood sugar < 30 mg/dl- hold insulin and administer 30 mL (15 grams) recheck in 15 minutes and notify physician for further instruction(2)Insulin Human Regular (HUMULIN R 100 UNITS/ML VIAL): REGULAR SLIDING SCALE COVERAGE 61-150 MG/DL, 0 UNITS 151-200 MG/DL, 1 UNITS 201-250 MG/DL, 2 UNITS 251-300 MG/DL, 3 UNITS 301- 350 MG/DL, 4 UNITS 351-399 MG/DL, 5 UNITS >= 400, 5 UNITS AND OBTAIN STAT BS AND CALL RESULTS TO PHYSICIANReview of SystemsFree Text ROS NotesFree Text ROS Notes:Constitutional: Denies: chills, fever, generalized weakness, recent wt loss.Skin: Denies: bruising, itching, rash.Allergy/Immune: Denies: hives, itching, rhinorrhea.Eyes: Denies: redness, discharge, visual loss/blurred, eye pain.ENT: Denies: ear ringing, earache, mouth pain, nasal congestion, sore throat,throat pain.Respiratory: Denies: GONGORA (dyspnea on exertion), hemoptysis, non productive cough, pleuritic pain, productive cough (sputum), SOB, wheezing.Cardiovascular: Reports: chest pain, denies: GONGORA (dyspnea on exertion), edema,palpitations.GI: Reports: abdominal pain denies: constipation, diarrhea, hematemesis,hematochezia, nausea, vomiting.: Denies: dysuria, frequency, hematuria.Musculoskeletal: Denies: joint pain, joint swelling, myalgias.Heme: Denies: bleeding, bruising.Endocrine: Denies: cold intolerance, heat intolerance, polydipsia, polyuria,weight gain, weight loss.Neuro: Denies: confusion, dizziness, focal weakness, headache, numbness.ObjectiveGeneralVS/I O:Vital Signs: Date Time Temp Pulse Resp B/P B/P Pulse O2 O2 Flow FiO2 Mean Ox Delivery Rate 09/09 2029 91 151/87 09/10 2027 91 151/87 09/09 1931 36.4 91 16 151/87 108.1 96 Room air 09/09 1730 36.8 16 09/09 1730 92 101/62 78 99 09/09 1315 36.8 103 17 103/65 94 Room airPATIENT WEIGHT:Weight (lb):Weight (oz):Weight (kg): 80.455Temperature maximum: 36.8Medications:Active Meds + DC'd Last 24 HrsAmlodipine Besylate (NORVASC 5 MG TABLET) 10 MG DAILY POClopidogrel Bisulfate (PLAVIX 75 MG TAB) 75 MG DAILY POLosartan Potassium (COZAAR 50 MG TABLET) 50 MG DAILY POPantoprazole Sodium Sesquihydrate (PROTONIX 40 MG TABLET) 40 MG DAILY@0600POAtorvastatin Calcium (LIPITOR 40MG TABLET) 40 MG BEDTIME POInsulin Human Regular (HUMULIN R 100 UNITS/ML VIAL) REGULAR SLIDING SCALECOVERAGE 61-150 MG/DL, 0 UNITS 151-200 MG/DL, 1 UNITS 201-250 MG/DL, 2 UNITS 251-300 MG/DL, 3 UNITS 301- 350 MG/DL, 4 UNITS 351-399 MG/DL, 5 UNITS >= 400, 5 UNITS AND OBTAIN STAT BS AND CALL RESULTS TO PHYSICIAN AC HS SUBQIsosorbide Mononitrate (IMDUR 30MG TABLET SA) 30 MG BID POLevetiracetam (KEPPRA 500 MG TABLET) 500 MG BID POMetoprolol Tartrate (LOPRESSOR 25 MG TABLET) 25 MG BID POSodium Chloride (NORMAL SALINE LOCK/FLUSH) 10 ML Q12HR IVTrazodone HCl (traZODone 50 MG TABLET) 50 MG BEDTIME PODextrose (GLUCOSE 4 GM TABLET) 16 GM ASDIR PRN PODextrose/Water (DEXTROSE 50%/WATER 50 ML ABBOJECT) If patient unable toswallow and has IV access * blood sugar 60-69 mg/dl- hold insulin and administer 15 mL (7.5 grams); * Blood sugar 50-59 mg/dl- hold insulin and administer 20 mL (10 grams); * Blood sugar 30-49 mg/dl- hold insulin and administer 25 mL (12.5 grams); * Blood sugar < 30 mg/dl- hold insulin and administer 30 mL (15 grams) recheck in 15 minutes and notify physician for further instruction ASDIR PRN IVFolic Acid (FOLIC ACID 1MG TABLET) 1 MG DAILY POThiamine HCl (VITAMIN B1 100MG TABLET) 100 MG DAILY POLorazepam (ATIVAN 2 MG/1 ML VIAL) 2 MG Q1H PRN PRN IVLorazepam (ATIVAN 2 MG/1 ML VIAL) 4 MG Q1H PRN PRN IVSodium Chloride (NORMAL SALINE LOCK/FLUSH) 10 ML ASDIR PRN IVKetorolac Tromethamine (TORADOL 15 MG/ML VIAL) 15 MG X1ED STA IV (DC)Lidocaine (LIDOCAINE 4% PATCH) 1 PATCH X1ED STA TRANSDERM (DC)Sodium Chloride (SODIUM CHLORIDE 0.9% 1000 ML SOLN) 1,000 ML X1ED STA IV(DC)ResultsFindings/Data:Laboratory Tests 09/09 1930 1554 1554 Chemistry Sodium (136 - 145 mmol/L) 143 Potassium (3.5 - 5.1 mmol/L) 3.8 Chloride (98 - 107 mmol/L) 109 H Carbon Dioxide (20 - 31 mmol/L) 23 Anion Gap (7 - 16 mmol/L) 11 BUN (9 - 23 mg/dL) 6 L Creatinine (0.7 - 1.3 mg/dL) 0.9 Est GFR (CKD-EPI 2020) (>90.0) > 90 BUN/Creatinine Ratio (4 - 33) 6 Glucose (57 - 106 mg/dL) 269 H POC Glucose (70 - 110 mg/dl) 279 H Calcium (8.7 - 10.4 mg/dL) 7.8 L Total Bilirubin (0.3 - 1.2 mg/dL) 0.2 L AST (0 - 34 U/L) 64 H ALT (10 - 49 U/L) 59 H Alkaline Phosphatase (46 - 116 U/L) 124 H Troponin I High Sens (<54 ng/L) 40 31 B-Natriuretic Peptide (0 - 100.0 pg/ml) 57.8 Total Protein (5.7 - 8.2 g/dL) 6.0 Albumin (3.2 - 4.8 g/dL) 3.7 Globulin (1.4 - 4.8 g/dL) 2.3 Albumin/Globulin Ratio (0.7 - 3.6) 1.6 Lipase (12 - 53 U/L) 29Laboratory Tests 09/09 1554 Hematology WBC (4.0 - 10.5 10 3/uL) 5.8 RBC (4.63 - 6.08 10 6/uL) 3.82 L Hgb (13.7 - 17.5 g/dL) 12.4 L Hct (40.1 - 51.0 %) 36.7 L MCV (79.0 - 92.2 fL) 96.1 H MCH (25.7 - 32.2 pg) 32.5 H MCHC (32.3 - 36.5 g/dL) 33.8 RDW (11.6 - 14.4 %) 14.9 H Plt Count (150 - 400 10 3/uL) 187 MPV (9.4 - 12.4 fL) 9.4 Immature Gran % (0.0 - 0.4 %) 0.3 Neutrophils % (34.0 - 67.9 %) 50.4 Lymphocytes % (21.8 - 53.1 %) 39.9 Monocytes % (5.3 - 12.2 %) 5.9 Eosinophils % (0.8 - 7.0 %) 2.8 Basophils % (0.2 - 1.2 %) 0.7 Nucleated RBC % (0.0 - 0.2 %) 0.0 Immature Gran # (0.00 - 0.03 10 3/uL) 0.02 Neutrophils # (1.78 - 5.38 10 3/uL) 2.93 Lymphocytes # (1.32 - 3.57 10 3/uL) 2.32 Monocytes # (0.30 - 0.82 10 3/uL) 0.34 Eosinophils # (0.04 - 0.54 10 3/uL) 0.16 Basophils # (0.01 - 0.08 10 3/uL) 0.04 Nucleated RBCs # (0.00 - 0.18 10 3/uL) 0.00Laboratory Tests 09/09 09/09 1603 1554 Serology COVID-19 (JAIME) (Negative) Negative Influenza Type A Ag (NEGATIVE) NEGATIVE Influenza Type B Ag (NEGATIVE) NEGATIVELaboratory Tests 09/09 1554 Toxicology Alcohol, Quantitative (mg/dL) 331 CHRadiology data:Recent Impressions:RADIOLOGY - CHEST PORTABLE 09/09 1342 Report Impression - Status: SIGNED Entered: 09/09/2024 1407IMPRESSION:No acute cardiopulmonary disease.Electronically signed by: Dale Kendall MD 09/09/2024 02:04 PMEDT RPWorkstation: [id number] By: JAMIL KENDALL, GURVINDEResults: labs reviewed, vital signs reviewed, x-ray personally reviewedFree Text Obj NotesFree Text Obj Notes:General: Well nourished, well developed, in no distressHead and neck: head is normocephalic, atraumatic, and neck is supple. No JVDEyes, ears, nose, throat: EOMI. External structures of the nose and ears arewithout deformity. No leukoplakia. Sclera clear, oral mucosa moist.Lymphatics: No lymphadenopathy or tendernessLungs: Clear to auscultation. No wheezing, ronchi, or rales.Cardiovascular: Midsternal postsurgical scar, Regular rate and rhythm, nomurmur. No peripheral edemaABD: soft, non-distended, non-tender. No hepatosplenomegaly is appreciated.Musculoskeletal: No joint pain, stiffness, or deformity, T12-L3 postsurgicalvertical scar noted, tenderness to palpation in lower lumbar regionExtremities: Right calcaneal scar from previous surgerySkin: Warm, dry, normal color and temperature. No jaundice, erythema, rash, orangiomata.Neuro: Alert and oriented to person place and time. No focal deficit orweakness.Mental Status: No hallucinations or agitationDiagnosis, Assessment PlanFree Text DxA P NotesFree Text DxA P Notes:This is a 59-year-old male with past medical history of coronary artery diseaseand CABG in 2023, alcohol use disorder, diabetes mellitus type 2 with neuropathy, history of stroke and seizure on Keppra who presents due to the ED with chiefcomplaint of chest pain. Patient reports that he is visiting his brother Becca from [place]. His nephew recently and he has been drinkingmore alcohol than usual. This morning he woke up and started having constantleft-sided chest pain. Patient states that since his CABG in 12/10 he has beenhaving constant chest pain which is progressively worsened located towards midsternal region, nonradiating, rated 8/10 in severity, described it as sharp/sorepain, aggravated with cough, no alleviating factors and denies any associatedshortness of breath, change in vision, headaches, nausea/vomiting.Assessment and planNoncardiac chest pain-Etiology likely secondary to Costochodritis vs Gastritis-Tropes negative x2, BNP 38.6-EKG: Normal sinus rhythm, HR 86, Q-wave in inferior leads but not acute-History: Was recently hospitalized for similar complaint underwent cardiaccatheterization with no stents placed, echocardiogram LVEF 55-60% with grade 1diastolic dysfunction-PE:Midsternal postsurgical scar, tenderness to palpation in mid sternal andleft lateral chest region, pain reproducible with palpation Regular rate andrhythm, no murmur, no peripheral edema.-Patient is started on nitro SL, Tylenol p.o. 650 mg p.r.n., resumed his homecardiac medications-We will start him on pantoprazole 40 mg p.o. daily.Acute alcohol intoxication-Blood alcohol levels on admission: 332- Patient states he drinks 64 oz of hard lemonade twice daily, last drink wastoday. Has been drinking alcohol since adoloscence. States he used to bedependent narcotics and replaced with alcohol.-CT abdomen and Pelvis from 08/25/2024 reveals hepatic steatosis-[facility] protocol in place , Ativan p.r.n., thiamine, folic acidType 2 diabetes mellitus, uncontrolled-Blood glucose on admission 232 HBA1C 9.6-Hold home medications- Ordered aggressive sliding scale insulin, Accu-Cheks. Hypoglycemic precautionson board-calculate 24-hour insulin requirement and adjust basal bolus regimenParoxysmal atrial fibrillation-EKG: Normal sinus rhythm with a ventricular rate of 78. No ST segment or T-wave changes.-Chads Vasc :3-Continue home metoprolol 25 mg p.o. b.i.d. Eliquis 5 mg p.o. b.i.d..Coronary artery disease status post CABG in 11/2023- Resume home medication Plavix 75 mg daily, Lipitor 40 mg daily, metoprolol p.o.25 mg b.i.d., losartan p.o. 50 mg dailyHistory of seizure disorder-Patient has history of stroke and seizure during same hospitalization roughly 11/2 years ago. Patient was started on Keppra 500 mg b.i.d. at that time reportsno subsequent episodes of seizure activity.-Continue Keppra 500 mg b.i.d.Essential hypertension-Resume home medication amlodipine p.o. 10 mg daily, losartan p.o. 50 mg dailyVTE prophylaxis: Eliquis 5 mg po BIDFENTPO hydrationWNLHeart healthy diet24 hour telemetry to rule out arrhythmiaDisposition:-Patient presenting with chest pain had a recent catheterization on 08/28/2024that was unremarkable. Chest pain most likely secondary to gastritis. Startedthe patient on pantoprazole 40 mg p.o. daily.-acute alcohol intoxication. Started the patient on [facility] protocol.Patient seen and examined at bedside with Dr. Cobb, attending physician.YASMINE COBB MD 09/12/24 1400:HistoryMedication/Allergy-Vaccine HxAllergies:Coded Allergies:No Known Allergies (09/11/24)AttestationsPhysician AttestationAgree w/findings plan:The patient was admitted to the hospital overnight through a verbal order by dylan a plan of care was established with the resident. I agree with the resident's findings and plan as documented at 2053 at 1401RPT#:[id number] OF REPORT Jose R Denton DO [id number]-Sep-2024 [facility] ([facility])EMERGENCY PROVIDER REPORTREPORT#:[id number] REPORT STATUS: SignedDATE:09/09/24 TIME: 1338PATIENT: RAMAN BERNAL UNIT #: [id number]#: [id number] [address] AGE: 59 SEX: M PCP PHYS: Walker Liu MDSERVICE AUTHOR: Bertin Odell DO R1REP SRV REP SRV TM: 1338* ALL edits or amendments must be made on the electronic/computer document *Bertin Odell 09/09/24 1338:HPI-General IllnessFree Text HPI NotesFree Text HPI NotesThe patient is a 59-year-old male with a history of diabetes, heart attack, andosteomyelitis presenting to the emergency department for generalized body pain.He reports pain all over his body, including his legs, back, and chest. Thepatient states that the pain is not new and has been ongoing since his surgeryin November. He was seen in the emergency department a few days ago for similarcomplaints. The patient mentions having chest pain, which he reports isconstant. He also notes a history of osteomyelitis in his back, for which hespent 3 months in the hospital receiving antibiotics. The patient reportscoughing but denies fever or chills. He acknowledges regular alcohol consumption, stating he usually drinks two 16-ounce [employer] Hard Lemonades daily. Thepatient denies abdominal pain, thoughts of self-harm, or hallucinations.GeneralInitial Greet Date/Time 09/09/24 1316PresentationChief Complaint __ ( generalized body pain)Portions of this section were scribed by Preet Ravi on 09/09/24 at 1338Review of SystemsFree Text ROS NotesFree Text ROS NotesGen: reports malaiseEyes: denies bilat eye pain/vision changes/dischargeEars/Nose/Throat: denies sore throat/nasal congestion.Cardio: reports chest pain, denies syncope.Pulm: reports cough, denies wheeze/dyspnea.GI: denies n/v/d, abdominal pain, bloody stool.: denies hematuria, dysuria.MSK: reports extremity painSkin: reports diaphoresisNeuro: reports headache, denies focal weakness/numbness.Heme: denies easy bleeding/bruising.Portions of this section were scribed by Preet Ravi on 09/09/24 at 1338Past Medical History - AdultStated Complaint ETOH WITH BODY PAINPortions of this section were scribed by Preet Ravi on 09/09/24 at 1338Physical ExamVital SignsVital SignsFirst Documented: Result Date Time Pulse Ox 94 09/09 1315 B/P 103/65 09/09 1315 O2 Delivery Room air 09/09 1315 Temp 98.2 09/09 1315 Pulse 103 09/09 1315 Resp 17 09/09 1315 B/P Mean 78 09/09 1730Last Documented: Result Date Time Temp 98.3 09/09 1730 Resp 16 09/09 1730 Pulse Ox 99 09/09 1730 B/P 101/62 09/09 1730 B/P Mean 78 09/09 1730 Pulse 92 09/09 1730 O2 Delivery Room air 09/09 1315Review of Vital Signs ReviewedFree Text PE NotesFree Text PE NotesGeneral: Well nourished, well developed, in no distress.Head and Neck: head is normocephalic, atraumatic, and neck is supple. No JVD.Eyes, ears, nose, throat: EOMI. External structures of the nose and ears arewithout deformity. No leukoplakia. Sclera clear, oral mucosa moist.Lymphatics: No lymphadenopathy or tenderness.Lungs: Clear to auscultation. No wheezing, ronchi, or rales.Cardiovascular: Regular rate and rhythm, no murmur. No peripheral edemaABD: soft, non-distended, non-tender. No hepatosplenomegaly is appreciated.Musculoskeletal: Tenderness in backSkin: Warm, dry, normal color and temperature. No jaundice, erythema, rash, orangiomata.Neuro: Alert and oriented to person place and time. No focal deficit orweakness.Mental Status: No hallucinations or agitationPortions of this section were scribed by Preet Ravi on 09/09/24 at 1338Interpretation DiagnosticsLab Results InterpretationResultsLaboratory Tests09/09/24 1554:[Embedded Image Not Available]Laboratory Tests: 09/09 09/09 09/09 1603 1554 1554 Chemistry Sodium (136 - 145 mmol/L) 143 Potassium (3.5 - 5.1 mmol/L) 3.8 Chloride (98 - 107 mmol/L) 109 H Carbon Dioxide (20 - 31 mmol/L) 23 Anion Gap (7 - 16 mmol/L) 11 BUN (9 - 23 mg/dL) 6 L Creatinine (0.7 - 1.3 mg/dL) 0.9 Est GFR (CKD-EPI 2020) (>90.0) > 90 BUN/Creatinine Ratio (4 - 33) 6 Glucose (57 - 106 mg/dL) 269 H Calcium (8.7 - 10.4 mg/dL) 7.8 L Total Bilirubin (0.3 - 1.2 mg/dL) 0.2 L AST (0 - 34 U/L) 64 H ALT (10 - 49 U/L) 59 H Alkaline Phosphatase (46 - 116 U/L) 124 H Troponin I High Sens (<54 ng/L) 31 B-Natriuretic Peptide (0 - 100.0 pg/ml) 57.8 Total Protein (5.7 - 8.2 g/dL) 6.0 Albumin (3.2 - 4.8 g/dL) 3.7 Globulin (1.4 - 4.8 g/dL) 2.3 Albumin/Globulin Ratio (0.7 - 3.6) 1.6 Lipase (12 - 53 U/L) 29 Hematology WBC (4.0 - 10.5 10 3/uL) 5.8 RBC (4.63 - 6.08 10 6/uL) 3.82 L Hgb (13.7 - 17.5 g/dL) 12.4 L Hct (40.1 - 51.0 %) 36.7 L MCV (79.0 - 92.2 fL) 96.1 H MCH (25.7 - 32.2 pg) 32.5 H MCHC (32.3 - 36.5 g/dL) 33.8 RDW (11.6 - 14.4 %) 14.9 H Plt Count (150 - 400 10 3/uL) 187 MPV (9.4 - 12.4 fL) 9.4 Immature Gran % (0.0 - 0.4 %) 0.3 Neutrophils % (34.0 - 67.9 %) 50.4 Lymphocytes % (21.8 - 53.1 %) 39.9 Monocytes % (5.3 - 12.2 %) 5.9 Eosinophils % (0.8 - 7.0 %) 2.8 Basophils % (0.2 - 1.2 %) 0.7 Nucleated RBC % (0.0 - 0.2 %) 0.0 Immature Gran # (0.00 - 0.03 10 3/uL) 0.02 Neutrophils # (1.78 - 5.38 10 3/uL) 2.93 Lymphocytes # (1.32 - 3.57 10 3/uL) 2.32 Monocytes # (0.30 - 0.82 10 3/uL) 0.34 Eosinophils # (0.04 - 0.54 10 3/uL) 0.16 Basophils # (0.01 - 0.08 10 3/uL) 0.04 Nucleated RBCs # (0.00 - 0.18 10 3/uL) 0.00 Serology COVID-19 (JAIME) (Negative) Negative Influenza Type A Ag (NEGATIVE) NEGATIVE Influenza Type B Ag (NEGATIVE) NEGATIVE Toxicology Alcohol, Quantitative (mg/dL) 331 CHRecent Impressions:RADIOLOGY - CHEST PORTABLE 09/09 1342 Report Impression - Status: SIGNED Entered: 09/09/2024 1407IMPRESSION:No acute cardiopulmonary disease.Electronically signed by: Dale Kendall MD 09/09/2024 02:04 PMEDT RPWorkstation: [id number] By: Hood MAGANA- Evaluation MDMFree Text MDM NotesAdditional TextComplexity of problems: Moderate.History obtained from: Patient.Patient presenting with: Generalized body pain.Differential diagnosis includes but not limited to: Alcohol withdrawal, chronicpain syndrome, osteoarthritis, fibromyalgia, and depression with somaticsymptoms.Plan: Based on the patient's history and physical exam, there is concern foralcohol withdrawal and chronic pain syndrome. Will evaluate with studiesincluding but not limited to CBC, CMP, EKG, chest x-ray, and urine drug screen.Will assess CIWA score and treat accordingly if withdrawal symptoms are present.Will consider pain management consultation for chronic pain issues.ED Course: Patient arrived complaining of generalized body pain. He has ahistory of recent ED visits for similar complaints. The patient reports ongoingchest pain since his heart surgery in November. He acknowledges regular alcoholconsumption, last drink 2 hours ago, exhibiting no signs of alcohol withdrawal.The patient's vital signs were stable, and he was alert and oriented.EKG was reviewed and interpreted by me shows normal sinus rhythm withventricular rate of 98, no ST elevations or T-wave abnormalities. Troponinnegative. Labs are all within patient's normal baseline. Chest x-ray wasreviewed interpreted by me shows no acute cardiopulmonary process. Ethanollevel 330. Patient is still appears to be intoxicated with alcohol. Reports hehas no family that can take him home and not safe to be discharged in hiscondition. Patient needs to be admitted for alcohol intoxication and chestpain.Final disposition: Patient is admitted to IM.ED CourseMedication(s) OrderedMedication(s) Ordered:Central Nervous System Agents Sig/Darshana Start time Last Medication Dose Route Stop Time Status Admin Ketorolac 15 MG X1ED STA 09/09 1340 DC 09/09 Tromethamine IV 09/09 1341 1422Devices Sig/Darshana Start time Last Medication Dose Route Stop Time Status Admin Sodium Chloride 10 ML Q12HR 09/09 2100 AC 09/09 IV 2031 Sodium Chloride 10 ML ASDIR PRN 09/09 1830 AC IVElectrolytic, Caloric, And Lety Sig/Darshana Start time Last Medication Dose Route Stop Time Status Admin Sodium Chloride 1,000 ML X1ED STA 09/09 1334 DC 09/09 IV 09/09 1433 1424Skin And Mucous Membrane Agent Sig/Darshana Start time Last Medication Dose Route Stop Time Status Admin Lidocaine 1 PATCH X1ED STA 09/09 1340 DC 09/09 TRANSDERM 09/09 1341 1422Portions of this section were scribed by Preet Ravi on 09/09/24 at 1338Patient Discharge DepartureVital Signs/ConditionVital SignsFirst Documented: Result Date Time Pulse Ox 94 09/09 1315 B/P 103/65 09/09 1315 O2 Delivery Room air 09/09 1315 Temp 98.2 09/09 1315 Pulse 103 09/09 1315 Resp 17 09/09 1315 B/P Mean 78 09/09 1730Last Documented: Result Date Time Temp 98.3 09/09 1730 Resp 16 09/09 1730 Pulse Ox 99 09/09 1730 B/P 101/62 09/09 1730 B/P Mean 78 09/09 1730 Pulse 92 09/09 1730 O2 Delivery Room air 09/09 1315All vital signs available at the time of this entry have been reviewed.Disposition DecisionHospitalize Hosp Physician Name Yasmine Cobb MD [facility] Physician Hospitalist Request Time 1811 Request Date 09/09/24 )( Accepts Hospitalization Yes )( Reason for HospitalizationAlcohol intoxication )( Accepted Time 1811 )( Accepted Date 09/09/24 Call Information will see patient, agrees with eval, agrees with planDischarge/Care PlanCounseled Regarding Diagnosis, Lab results, Imaging studies, Need for follow-up Admit NoteI have spoken with the patient and/or caregivers. I have explained the patient'scondition, diagnoses and treatment plan based on the information available to meat this time. I have answered the patient's and/or caregiver's questions andaddressed any concerns. The patient and/or caregivers have as good anunderstanding of the patient's diagnosis, condition and treatment plan as can beexpected at this point. The patient has been stabilized within the capability ofthe emergency department. The patient will be transported for further care andmanagement or will be moved to an observation or inpatient service. I havecommunicated with the staff or medical practitioner taking over this patient'scare.Portions of this section were scribed by Preet Ravi on 09/09/24 at 1338JOVANNI CARRERA MD 09/13/24 1934:Review of SystemsROS StatementsAll systems rev neg except as marked.Past Medical History - AdultAllergiesCoded Allergies:No Known Allergies (09/11/24)Home MedicationsActive ScriptsamLODIPine (Norvasc) 10 MG PO DAILY 30 Days #30 TAB Ref 1 Prov: 08/29/24clopidogreL (Plavix) 75 MG PO DAILY 30 Days #30 TAB Ref 4 Prov: 08/29/24Apixaban (Eliquis) 5 MG PO BID 30 Days #60 TAB Ref 2 Prov: 08/29/24Metoprolol Tartrate (Lopressor) 25 MG PO BID 30 Days #60 TAB Ref 3 Prov: 08/29/24Isosorbide Mononitrate ER (Imdur) 30 MG PO BID 30 Days #60 TAB.ER.24H Ref 2 Prov: 08/29/24Reported MedicationsMed List Information (*Med List Information) 1 EA MISC .CANCEL AT DISCHARGEglipiZIDE (GlucotroL) 5 MG PO BIDErgocalciferol (Vitamin D2) (Vitamin D2) 1,250 MCG PO SuDulaglutide (Trulicity) 0.75 MG SUBQ SuCyanocobalamin (Vitamin B-12) (Vitamin B-12) 1,000 MCG PO DAILYFolic Acid 1 MG PO DAILYPyridoxine (Vitamin B6) (Vitamin B-6) 100 MG PO DAILYMagnesium Oxide (Mag-Ox 400) 400 MG PO DAILYAtorvastatin (Lipitor) 40 MG PO BEDTIMEtraZODone (DesyreL) 50 MG PO BEDTIMEmetFORMIN (Glucophage) 1,000 MG PO BID MEALSlevETIRAcetam (Keppra) 500 MG PO BIDLosartan (Cozaar) 50 MG PO DAILYEmpagliflozin (Jardiance) 10 MG PO QAMInterpretation DiagnosticsLab Results InterpretationConsiderations Independ review imaging, Reviewed prior records Lab Imaging StatementLaboratory radiographic studies reviewed and considered in the medicaldecision-making.Patient Discharge DepartureVital Signs/ConditionCondition StableClinical ImpressionClinical ImpressionPrimary Impression: Chest painSecondary Impressions: Alcohol intoxication, Blood glucose elevated, Lab testnegative for COVID-19 virusDischarge/Care Plan(Auto) PrescriptionsCurrent Visit ScriptsPANTOPRAZOLE (PROTONIX) 40 MG PO DAILY 30 Days #39 TAB Ref 1ReferralsProvider Referral: Walker Lui MD Address: [address] [facility]. [place], [place] [address]Quality [id number] ECG for CP Performed documentedSupervising Physician Note Resident Saw PtThis patient was seen by a resident. I have personally seen the patient,performed the critical or martinez portions of the service, and participated in themanagement of the patient. I have reviewed and agree with the resident's note,and I have reviewed all labs, ECGs, and imaging studies or reports. I agree withthis resident's findings, exam and plan. at 0642 at 1936RPT#:[id number] OF REPORT Reza Carbajal MD-06-Sep-19 Activity Bathroom privilegesActivity TurnActivity: Resume nrm Chava Parsons MD -04-Sep-2024 [facility] ([facility])Hospitalist History PhysicalREPORT#:[id number] REPORT STATUS: SignedDATE:09/04/24 TIME: ATIENT: RAMAN BERNAL UNIT #: [id number]#: [id number] [facility]AGE: 59 SEX: M ATTEND: Yasmine Cobb MDADM AUTHOR: Alessandro Larsen MD R1REP SRV REP SRV TM: 214* ALL edits or amendments must be made on the electronic/computer document *Sarita Larsen 09/04/242142:History of Present IllnessHPIChief complaint:Chest painPCP:PCP: No Primary or Family PhysicianHPI:This is a 59-year-old male with past medical history of coronary artery diseaseand CABG in 2023, alcohol use disorder, diabetes mellitus type 2 with neuropathy, history of stroke and seizure on Keppra who presents due to the ED with chiefcomplaint of chest pain. Patient states that since his CABG in 12/10 he has beenhaving constant chest pain which is progressively worsened located towards midsternal region, nonradiating, rated 8/10 in severity, described it as sharp/sorepain, aggravated with cough, no alleviating factors and denies any associatedshortness of breath, change in vision, headaches, nausea/vomiting.Patient was recently hospitalized for similar complaint, had new onset AFib withRVR started on Cardizem later on converted to NSR and underwent cardiaccatheterization with no stents placed was discharged with Eliquis and Plavix andstates he is compliant with his current cardiac medications.Additionally he endorses abdominal pain associated with diarrhea 2-3 episodesfor last week which is now resolved, and endorses back pain states that he hadosteomyelitis and currently receiving p.o. antibiotics, it is not on med rec.HistoryPast medical history:Reports: Alcoholism/subst abuse, Coronary artery disease, Diabetes mellitus,Hypertension, Seizure disorder, Transient ischemic attack. Denies: COPD,Bleeding disorder.Additional medical history: coronary artery disease and CABG in 2023, alcohol use disorder,Paroxysmal AFib diabetes mellitus type 2 with neuropathy,history of stroke and seizurePast surgical history:Reports: CABG.Additional surgical history:T12-L3 vertebral fracture in 2010 with surgery in lcohol use: Alcohol use, Reports using since 59 oz hard lemonade twice daily,last drink todayDrug use: Denies recreational drugsSmoking status for patients 13 years old or older: Current some day smokerDate last smoked: 09/04/24Medication/Allergy-Vaccine HxAllergies:Coded Allergies:No Known Allergies (08/26/24)Ambulatory status: IndependentReview of SystemsFree Text ROS NotesFree Text ROS Notes:Constitutional: Denies: chills, fever, generalized weakness, recent wt loss.Skin: Denies: bruising, itching, rash.Allergy/Immune: Denies: hives, itching, rhinorrhea.Eyes: Denies: redness, discharge, visual loss/blurred, eye pain.ENT: Denies: ear ringing, earache, mouth pain, nasal congestion, sore throat,throat pain.Respiratory: Denies: GONGORA (dyspnea on exertion), hemoptysis, non productive cough, pleuritic pain, productive cough (sputum), SOB, wheezing.Cardiovascular: Reports: chest pain, denies: GONGORA (dyspnea on exertion), edema,palpitations.GI: Reports: abdominal pain denies: constipation, diarrhea, hematemesis,hematochezia, nausea, vomiting.: Denies: dysuria, frequency, hematuria.Musculoskeletal: Denies: joint pain, joint swelling, myalgias.Heme: Denies: bleeding, bruising.Endocrine: Denies: cold intolerance, heat intolerance, polydipsia, polyuria,weight gain, weight loss.Neuro: Denies: confusion, dizziness, focal weakness, headache, numbness.ObjectiveGeneralVS/I O:Vital Signs: Date Time Temp Pulse Resp B/P B/P Pulse O2 O2 Flow FiO2 Mean Ox Delivery Rate 09/045 83 09/04 2014 84 95 09/05 1999 83 125/65 87 09/04 1940 84 95 09/04 1905 87 97 09/04 1900 88 128/63 90 09/04 1800 90 109/59 76 09/04 1725 93 94 09/04 1723 125/64 89 09/04 1700 98 119/71 90 97 09/04 1645 93 16 98 09/04 1630 97 99 09/04 1628 109/56 78 09/04 1611 36.8 93 18 104/55 97 Room airPATIENT WEIGHT:Weight (lb):Weight (oz):Weight (kg): 80.700Medications:Active Meds + DC'd Last 24 HrsAmlodipine Besylate (NORVASC 5 MG TABLET) 10 MG DAILY POClopidogrel Bisulfate (PLAVIX 75 MG TAB) 75 MG DAILY POIsosorbide Mononitrate (IMDUR 30MG TABLET ) 30 MG BID POLosartan Potassium (COZAAR 50 MG TABLET) 50 MG DAILY POMagnesium Oxide (MAG-OX 400 MG TABLET) 400 MG DAILY POSodium Chloride (NORMAL SALINE LOCK/FLUSH) 10 ML Q12HR IVInsulin Human Regular (HUMULIN R 100 UNITS/ML VIAL) AGGRESSIVE SLIDING SCALE 61-150 MG/DL, 0 UNITS 151-200 MG/DL, 2 UNITS 201-250 MG/DL, 4 UNITS 251-300 MG/DL, 6 UNITS 301-350 MG/DL, 8 UNITS 351-399 MG/DL, 10 UNITS >= 400 MG/DL, 12 UNITS AND CALL RESULTS TO PHYSICIAN AC HS SUBQAcetaminophen (TYLENOL 325 MG TABLET) 650 MG Q6H PRN PRN PODextrose (GLUCOSE 4 GM TABLET) 16 GM ASDIR PRN PODextrose/Water (DEXTROSE 50%/WATER 50 ML ABBOJECT) If patient unable toswallow and has IV access * blood sugar 60-69 mg/dl- hold insulin and administer 15 mL (7.5 grams); * Blood sugar 50-59 mg/dl- hold insulin and administer 20 mL (10 grams); * Blood sugar 30-49 mg/dl- hold insulin and administer 25 mL (12.5 grams); * Blood sugar < 30 mg/dl- hold insulin and administer 30 mL (15 grams) recheck in 15 minutes and notify physician for further instruction ASDIR PRN IVChlordiazepoxide HCl (LIBRIUM 5 MG CAP) 10 MG Q8H PRN PRN POLorazepam (ATIVAN 2 MG/1 ML VIAL) 2 MG Q1H PRN PRN IVInsulin Human Regular (HUMULIN R 100 UNITS/ML VIAL) 10 UNITS NOW STA SUBQ (DC)Apixaban (ELIQUIS 5 MG TABLET) 5 MG BID POLidocaine (LIDOCAINE 4% PATCH) 1 PATCH DAILY TRANSDERMMetoprolol Tartrate (LOPRESSOR 25 MG TABLET) 25 MG BID POAcetaminophen (TYLENOL 325 MG TABLET) 325 MG Q6H PRN PRN PO (DC)Atorvastatin Calcium (LIPITOR 40MG TABLET) 40 MG BEDTIME POLevetiracetam (KEPPRA 500 MG TABLET) 500 MG BID POTrazodone HCl (traZODone 50 MG TABLET) 50 MG BEDTIME POMorphine Sulfate (morphine SULFATE 2 MG/ML INJ (FK)) 2 MG Q4H PRN PRN IV(DC)Nitroglycerin (NITROSTAT 0.4 MG TABLET SL) 0.4 MG Q5M PRN PRN SLOndansetron HCl (ONDANSETRON 2 MG/ML SDV VIAL) 4 MG Q8H PRN PRN IVSodium Chloride (NORMAL SALINE LOCK/FLUSH) 10 ML ASDIR PRN IVPotassium Chloride (K-DUR 20 MEQ TABLET SA) 40 MEQ X1ED STA PO (DC)Sodium Chloride (SODIUM CHLORIDE 0.9% 1000 ML SOLN) 1,000 ML X1ED STA IV(DC)Aspirin (ASPIRIN 81MG TABLET CHEW) 324 MG X1ED STA PO (DC)ResultsFindings/Data:Laboratory Tests 09/045 1646 1646 Chemistry Sodium (136 - 145 mmol/L) 134 L Potassium (3.5 - 5.1 mmol/L) 3.3 L Chloride (98 - 107 mmol/L) 100 Carbon Dioxide (20 - 31 mmol/L) 25 Anion Gap (7 - 16 mmol/L) 9 BUN (9 - 23 mg/dL) 9 Creatinine (0.7 - 1.3 mg/dL) 1.1 Est GFR (CKD-EPI 2020) (>90.0) 76.9 L BUN/Creatinine Ratio (4 - 33) 8 Glucose (57 - 106 mg/dL) 473 CH POC Glucose (70 - 110 mg/dl) 264 H Calcium (8.7 - 10.4 mg/dL) 9.2 Total Bilirubin (0.3 - 1.2 mg/dL) 0.3 AST (0 - 34 U/L) 48 H ALT (10 - 49 U/L) 57 H Alkaline Phosphatase (46 - 116 U/L) 130 H Troponin I High Sens (<54 ng/L) 41 B-Natriuretic Peptide (0 - 100.0 pg/ml) 38.6 Total Protein (5.7 - 8.2 g/dL) 6.0 Albumin (3.2 - 4.8 g/dL) 3.8 Globulin (1.4 - 4.8 g/dL) 2.2 Albumin/Globulin Ratio (0.7 - 3.6) 1.7Laboratory Tests 09/04 1646 Hematology WBC (4.0 - 10.5 10 3/uL) 5.0 RBC (4.63 - 6.08 10 6/uL) 3.79 L Hgb (13.7 - 17.5 g/dL) 12.2 L Hct (40.1 - 51.0 %) 35.9 L MCV (79.0 - 92.2 fL) 94.7 H MCH (25.7 - 32.2 pg) 32.2 MCHC (32.3 - 36.5 g/dL) 34.0 RDW (11.6 - 14.4 %) 15.4 H Plt Count (150 - 400 10 3/uL) 155 MPV (9.4 - 12.4 fL) 10.1 Immature Gran % (0.0 - 0.4 %) 0.4 Neutrophils % (34.0 - 67.9 %) 38.7 Lymphocytes % (21.8 - 53.1 %) 43.0 Monocytes % (5.3 - 12.2 %) 14.3 H Eosinophils % (0.8 - 7.0 %) 2.6 Basophils % (0.2 - 1.2 %) 1.0 Nucleated RBC % (0.0 - 0.2 %) 0.0 Immature Gran # (0.00 - 0.03 10 3/uL) 0.02 Neutrophils # (1.78 - 5.38 10 3/uL) 1.93 Lymphocytes # (1.32 - 3.57 10 3/uL) 2.14 Monocytes # (0.30 - 0.82 10 3/uL) 0.71 Eosinophils # (0.04 - 0.54 10 3/uL) 0.13 Basophils # (0.01 - 0.08 10 3/uL) 0.05 Nucleated RBCs # (0.00 - 0.18 10 3/uL) 0.00Laboratory Tests 09/04 1646 Toxicology Acetone, Qual (NEGATIVE) NEGATIVELaboratory Tests 09/04 2028 Urines Urine Color (YELLOW) Colorless Urine Appearance (CLEAR) Clear Urine pH (4.5 - 7.5) 6.5 Ur Specific [place] (1.005 - 1.030) < 1.005 L Urine Protein (NEGATIVE mg/dL) Negative Urine Ketones (NEGATIVE mg/dL) Negative Urine Blood (NEGATIVE mg/dL) Negative Urine Nitrite (NEGATIVE mg/dL) Negative Urine Bilirubin (NEGATIVE mg/dL) Negative Urine Urobilinogen (Normal mg/dL) Normal Ur Leukocyte Esterase (NEGATIVE Maira/uL) Negative Urine Glucose (NEGATIVE mg/dL) >1000 (4+) HRadiology data:Recent Impressions:RADIOLOGY - CHEST PORTABLE 09/04 1714 Report Impression - Status: SIGNED Entered: 09/04/2024 1836IMPRESSION: The lungs are clear and there is no pneumothorax orpleural effusion. The heart is mildly enlarged. Prior mediansternotomy.Electronically signed by: Abdiel Mcnair MD 09/04/2024 06:32 PMEDT RPWorkstation: [id number] By: LIP.SMA Mary MCNAIR MDInterpretationI independently reviewed the [ ] and my interpretation is [ ]Free Text Obj NotesFree Text Obj Notes:General: Well nourished, well developed, in no distressHead and neck: head is normocephalic, atraumatic, and neck is supple. No JVDEyes, ears, nose, throat: EOMI. External structures of the nose and ears arewithout deformity. No leukoplakia. Sclera clear, oral mucosa moist.Lymphatics: No lymphadenopathy or tendernessLungs: Clear to auscultation. No wheezing, ronchi, or rales.Cardiovascular: Midsternal postsurgical scar, tenderness to palpation in midsternal and left lateral chest region, Regular rate and rhythm, no murmur. Noperipheral edemaABD: soft, non-distended, non-tender. No hepatosplenomegaly is appreciated.Musculoskeletal: No joint pain, stiffness, or deformity, T12-L3 postsurgicalvertical scar noted, tenderness to palpation in lower lumbar regionSkin: Warm, dry, normal color and temperature. No jaundice, erythema, rash, orangiomata.Neuro: Alert and oriented to person place and time. No focal deficit orweakness.Mental Status: No hallucinations or agitationDiagnosis, Assessment PlanFree Text DxA P NotesFree Text DxA P Notes:This is a 59-year-old male with past medical history of coronary artery diseaseand CABG in 2023, alcohol use disorder, diabetes mellitus type 2 with neuropathy, history of stroke and seizure on Keppra who presents due to the ED with chiefcomplaint of chest pain. Patient states that since his CABG in 12/10 he has beenhaving constant chest pain which is progressively worsened located towards midsternal region, nonradiating, rated 8/10 in severity, described it as sharp/sorepain, aggravated with cough, no alleviating factors and denies any associatedshortness of breath, change in vision, headaches, nausea/vomiting.Noncardiac chest pain-Etiology likely musculoskeletal-MAINOR 3, heart 4-Tropes negative x2, BNP 38.6-EKG: Normal sinus rhythm, HR 86, Q-wave in inferior leads but not acute-History: Was recently hospitalized for similar complaint underwent cardiaccatheterization with no stents placed, echocardiogram LVEF 55- 60% with grade 1diastolic dysfunction-PE:Midsternal postsurgical scar, tenderness to palpation in mid sternal andleft lateral chest region, pain reproducible with palpation Regular rate andrhythm, no murmur, no peripheral edema.-Patient is started on nitro SL, Tylenol p.o. 650 mg p.r.n., resumed his homecardiac medicationsHyperglycemia, secondary to uncontrolled diabetes mellitus type 2- Blood glucose on admission 473 HBA1C 9.6-Hold home medications, started on regular 10 units insulin x1-Ordered aggressive sliding scale insulin, Accu-Cheks. Hypoglycemic precautionson board-calculate 24-hour insulin requirement and adjust basal bolus regimenTransaminitis-Etiology secondary to chronic alcohol use-AST 48, ALT 57, alk-phos 130-Continue to trendChronic Alcohol use dependency, acute intoxication-Patient states he drinks 64 oz of hard lemonade twice daily, last drink wastoday. Has been drinker since adolescence. States he used to be dependentnarcotics and replaced with alcohol. Denies history of cirrhosis.-On admission AST 48, ALT 57, alk-phos 130-Abdomen pelvis CT reveals hepatic steatosis-CIWA protocol in place with Librium 25 mg p.o. t.i.d., Ativan p.r.n., thiamine,folateCoronary artery disease with CABG in 11/2023-Resume home medication Plavix 75 mg daily, Lipitor 40 mg daily, metoprolol p.o.25 mg b.i.d., losartan p.o. 50 mg dailyLateral right 7th rib fracture-Denies pain or recent coughing episodes at this time, incidental finding on CTAchest-Lidocaine patch if needed.History of seizure and stroke-Patient has history of stroke and seizure during same hospitalization roughly 11/2 years ago. Patient was started on Keppra 500 mg b.i.d. at that time reportsno subsequent episodes of seizure activity.-Continue Keppra 500 mg b.i.d.Essential hypertension-Resume home medication amlodipine p.o. 10 mg daily, losartan p.o. 50 mg dailyInsomniaContinue trazodone 50 mg dailyF: P.o. fluidsE: Hypokalemia, repletedN: Heart healthy dietT: Yes, rule out arrhythmiaVTE prophylaxis: Eliquis 5 mg b.i.d.Dispo:-Patient is started on nitro SL, Tylenol p.o. 650 mg p.r.n., resumed his homecardiac medications-Continue to monitor blood glucose-CIWA protocol in place with Librium 25 mg p.o. t.i.d., Ativan p.r.n., thiamine,folate.Patient is seen, case discussed with Dr. Nolan, attending physician.COLTON NOLAN 09/07/24 1850:AttestationsTeaching Physician Hkoaqynawdg8kh visit w/ resident:The patient was admitted to the hospital overnight through a verbal order by dylan a plan of care was established with the resident. I agree with the resident's findings and plan as documented at 0624 at 1855RPT#:[id number] OF REPORT Samantha Lan-04-Sep-2024 [facility])Pharmacy Prog.Note-Med RecREPORT#:[id number] REPORT STATUS: SignedDATE:09/04/24 TIME: ATIENT: RAMAN BERNAL UNIT #: [id number]#: [id number] ROOM/BED: [facility]-ADOB: [birth year]AGE: 59 SEX: M ATTEND: Yasmine Cobb MDADM AUTHOR: Frida Singh RREP SRV REP SRV TM: 2031* ALL edits or amendments must be made on the electronic/computer document *Frida Singh 09/04/242031:Pharmacy Med History ReviewPrimary Care ProviderPCP: PCP: No Primary or Family PhysicianPharmacy Med History ReviewSource of information: interviewed pt/caregiver, reviewed med claims dataMed Rec report: yesAllergies:Coded Allergies:No Known Allergies (08/26/24)Hanna Monaco 09/05/24 0951:Pharmacy Med History ReviewPharmacy Med History ReviewInterpreter: Distribution Spec: NoAdmission Med Rec:Scheduled MedicationsamLODIPine (Norvasc) 10 MG PO DAILYApixaban (Eliquis) 5 MG PO BIDAtorvastatin (Lipitor) 40 MG PO BEDTIME (Reported)clopidogreL (Plavix) 75 MG PO DAILYCyanocobalamin (Vitamin B-12) (Vitamin B-12) 1,000 MCG PO DAILY (Reported)Dulaglutide (Trulicity) 0.75 MG SUBQ Grey (Reported)Empagliflozin (Jardiance) 10 MG PO QAM (Reported)Ergocalciferol (Vitamin D2) (Vitamin D2) 1,250 MCG PO Grey (Reported)Folic Acid 1 MG PO DAILY (Reported)glipiZIDE (GlucotroL) 5 MG PO AC BK (Reported)Isosorbide Mononitrate ER (Imdur) 30 MG PO BIDlevETIRAcetam (Keppra) 500 MG PO BID (Reported)Losartan (Cozaar) 50 MG PO DAILY (Reported)Magnesium Oxide (Mag-Ox 400) 400 MG PO DAILY (Reported)Med List Information (*Med List Information) 1 EA MISC .CANCEL AT DISCHARGE (Reported)metFORMIN (Glucophage) 1,000 MG PO BID MEALS (Reported)Metoprolol Tartrate (Lopressor) 25 MG PO BIDPyridoxine (Vitamin B6) (Vitamin B-6) 100 MG PO DAILY (Reported)traZODone (DesyreL) 50 MG PO BEDTIME (Reported)Scheduled PRN MedicationsCarvediloL (Coreg) 3.125 MG PO BID PRN PRN SBP GREATER THAN 160 (Reported)Discontinued MedicationsAcetaminophen (TylenoL) 325 MG PO Q6H PRN PRN PAIN (Reported) Discontinued reason: Patient stopped takingCarvediloL (Coreg) 3.125 MG PO BID MEALS (Reported)cloNIDine (Catapres) 0.1 MG PO DAILY PRN SBP > 180 OR DBP > 100 (Reported)Lidocaine 4% (Pain Relief Patch) 1 PATCH TRANSDERM DAILY Discontinued reason: Patient stopped takingPotassium Gluconate 99 MG PO DAILY (Reported)Med Rec actions: Med Rec actions: pt reviewed by pharmacist, home med list reviewed, updatedallergies, updated ADR information, issues clarifiedComments:Please call x [facility] extension with questions regarding the medicationreconciliation for this patient. Thank you! at 2033 at 0959RPT#:[id number] OF REPORT Shoaib Wright APR P-50-Wst04-Sep-2024 [facility] ([facility])EMERGENCY PROVIDER REPORTREPORT#:[id number] REPORT STATUS: SignedDATE:09/04/24 TIME: 1638PATIENT: RAMAN BERNAL UNIT #: [id number]#: [id number] ROOM/BED: [facility]-ADOB: [birth year] AGE: 59 SEX: M PCP PHYS: Walker Lui MDSERVICE AUTHOR: Adriana Cramer APRNREP SRV REP SRV TM: 1638* ALL edits or amendments must be made on the electronic/computer document *Kelsea CRAMER 09/04/24 1638:HPI-General IllnessFree Text HPI NotesFree Text HPI [id number] male with past medical history of coronary artery disease and CABGin 2023, alcohol use disorder, type 2 diabetes with neuropathy, stroke, seizurewho presents to the emergency department with complaints of chest pain patientstates that she has had he has had it for several months however it has gottenworse in the last couple of days. Patient states his sugars have also been highand he has not been able to keep them controlled. Patient denies any shortnessof breath, dizziness, lightheadedness, abdominal pain nausea or vomiting at thistime.GeneralInitial Greet Date/Time 09/04/24 1622PresentationChief Complaint Chest painPast Medical History - AdultStated Complaint CP X FEW MONTHS, IVETH BLOOD SUGARPast Medical History:Reports: Alcoholism/subst abuse, Coronary artery disease, Diabetes mellitus,Hypertension, Seizure disorder, Transient ischemic attack. Denies: COPD,Bleeding disorder.Past Surgical History:Reports: CABG.Alcohol Use Alcohol useSmoking status for patients 13 years old or older: Current some day smokerPhysical ExamVital SignsVital SignsFirst Documented: Result Date Time Pulse Ox 97 09/04 1610 B/P 104/55 09/04 161 O2 Delivery Room air 09/04 1610 Temp 36.8 09/04 161 Pulse 93 09/04 161 Resp 18 09/04 161 B/P Mean 78 09/04 1628Last Documented: Result Date Time Pulse Ox 95 09/04 2014 Pulse 84 09/04 2014 B/P 125/65 09/05 1999 B/P Mean 87 09/05 1999 Resp 16 09/04 1645 O2 Delivery Room air 09/04 1610 Temp 36.8 09/04 1611Review of Vital Signs ReviewedBasic Physical ExamBasic PE GEN: Well appearing/NAD, HEAD: Atraumatic/NC, EYES: PERRL, conj clear,ENT: Membranes moist, NECK: Supple, RESP: No resp distress, CV: Reg raterhythm, ABD: Soft/non-tender, EXT: No gross abnormality, SKIN: No rashes, warm/dry, NEURO: alert oriented, NEURO: gross movement NL, PSYCH: NL thoughtcontentPhysical ExamGeneral/Const General/Const Awake, Alert, No acute distress, Well appearing, Well developed, Well hydrated, Well nourished, Cooperative, Not toxic appearingResp/Chest Respiratory/Chest Atraumatic, Breath sounds NL, Breath sounds = bilat, Norespiratory distress, No rales, No rhonchi, No wheezing, No retractions, Nostridor, No chest tenderness, No chest wall deformity, No crepitusCardiovascular Cardiovascular Heart rate NL, Regular rhythm, Heart sounds NL, No gallop, Nomurmurs, No rubs, Cap refill not delayed, Peripheral circulation NL, Pulses =bilaterally, No gross BP differentialAbdomen/GI Abdomen/GI Atraumatic, Soft, Non-tender, McBurney's non-tender, No guarding,No rebound, BS normoactive, No distention, No hernia, No palpable mass, Nopulsatile massNeurologic Neurologic Oriented X3, Speech NL, No motor deficits, No sensory deficits, CNII - XII intact, Reflexes equal bilat, Cerebellar NL, Memory NL, Gait NLInterpretation DiagnosticsLab Results InterpretationResultsLaboratory Tests09/04/24 1646:[Embedded Image Not Available]Laboratory Tests: 0609/04 1906 1646 1646Chemistry POC Glucose (70 - 110 mg/dl) 334 H Hemoglobin A1c (<5.7 %) 9.6 H B-Natriuretic Peptide (0 - 100.0 pg/ml) 38.6Toxicology Urine Opiates Screen (NEGATIVE) NEGATIVE Ur Methadone, Qual (NEGATIVE) NEGATIVE Urine Fentanyl Screen (NEGATIVE) NEGATIVE Ur Barbiturates Screen (NEGATIVE) NEGATIVE Ur Tricyclics Screen (NEGATIVE) NEGATIVE Ur Amphetamine Screen (NEGATIVE) NEGATIVE U Benzodiazepines Scrn (NEGATIVE) NEGATIVE Urine Cocaine Screen (NEGATIVE) NEGATIVE U Marijuana (THC) Screen (NEGATIVE) NEGATIVEUrines Urine Color (YELLOW) Colorless Urine Appearance (CLEAR) Clear Urine pH (4.5 - 7.5) 6.5 Ur Specific [place] (1.005 - 1.030) < 1.005 L Urine Protein (NEGATIVE mg/dL) Negative Urine Ketones (NEGATIVE mg/dL) Negative Urine Blood (NEGATIVE mg/dL) Negative Urine Nitrite (NEGATIVE mg/dL) Negative Urine Bilirubin (NEGATIVE mg/dL) Negative Urine Urobilinogen (Normal mg/dL) Normal Ur Leukocyte Esterase (NEGATIVE Maira/uL) Negative Urine Glucose (NEGATIVE mg/dL) >1000 (4+) H 09/04 1645 Chemistry Sodium (136 - 145 mmol/L) 134 L Potassium (3.5 - 5.1 mmol/L) 3.3 L Chloride (98 - 107 mmol/L) 100 Carbon Dioxide (20 - 31 mmol/L) 25 Anion Gap (7 - 16 mmol/L) 9 BUN (9 - 23 mg/dL) 9 Creatinine (0.7 - 1.3 mg/dL) 1.1 Est GFR (CKD- EPI 2020) (>90.0) 76.9 L BUN/Creatinine Ratio (4 - 33) 8 Glucose (57 - 106 mg/dL) 473 CH Calcium (8.7 - 10.4 mg/dL) 9.2 Total Bilirubin (0.3 - 1.2 mg/dL) 0.3 AST (0 - 34 U/L) 48 H ALT (10 - 49 U/L) 57 H Alkaline Phosphatase (46 - 116 U/L) 130 H Troponin I High Sens (<54 ng/L) 41 Total Protein (5.7 - 8.2 g/dL) 6.0 Albumin (3.2 - 4.8 g/dL) 3.8 Globulin (1.4 - 4.8 g/dL) 2.2 Albumin/Globulin Ratio (0.7 - 3.6) 1.7 Hematology WBC (4.0 - 10.5 10 3/uL) 5.0 RBC (4.63 - 6.08 10 6/uL) 3.79 L Hgb (13.7 - 17.5 g/dL) 12.2 L Hct (40.1 - 51.0 %) 35.9 L MCV (79.0 - 92.2 fL) 94.7 H MCH (25.7 - 32.2 pg) 32.2 MCHC (32.3 - 36.5 g/dL) 34.0 RDW (11.6 - 14.4 %) 15.4 H Plt Count (150 - 400 10 3/uL) 155 MPV (9.4 - 12.4 fL) 10.1 Immature Gran % (0.0 - 0.4 %) 0.4 Neutrophils % (34.0 - 67.9 %) 38.7 Lymphocytes % (21.8 - 53.1 %) 43.0 Monocytes % (5.3 - 12.2 %) 14.3 H Eosinophils % (0.8 - 7.0 %) 2.6 Basophils % (0.2 - 1.2 %) 1.0 Nucleated RBC % (0.0 - 0.2 %) 0.0 Immature Gran # (0.00 - 0.03 10 3/uL) 0.02 Neutrophils # (1.78 - 5.38 10 3/uL) 1.93 Lymphocytes # (1.32 - 3.57 10 3/uL) 2.14 Monocytes # (0.30 - 0.82 10 3/uL) 0.71 Eosinophils # (0.04 - 0.54 10 3/uL) 0.13 Basophils # (0.01 - 0.08 10 3/uL) 0.05 Nucleated RBCs # (0.00 - 0.18 10 3/uL) 0.00 Toxicology Acetone, Qual (NEGATIVE) NEGATIVERecent Impressions:RADIOLOGY - CHEST PORTABLE 09/04 520 Report Impression - Status: SIGNED Entered: 09/04/2024 0686IMPRESSION: The lungs are clear and there is no pneumothorax orpleural effusion. The heart is mildly enlarged. Prior mediansternotomy.Electronically signed by: Abdiel Mcnair MD 09/04/2024 06:32 PMEDT RPWorkstation: [id number] By: - ABDIEL MCNAIR MD Lab Imaging StatementLaboratory radiographic studies reviewed and considered in the medicaldecision-making.ECG #1 InterpretationText/Dict NoteDid not cross over into muse. Viewed by self. EKG was NSR. No acuteabnormality. Rate was 82. Date was 09/04/2024.ECG Documented in MUSE YesRe-Evaluation MDMFree Text MDM NotesFree Text MDM NotesPatient is presenting with history and physical noted above. Diagnostic studieswere initiated in the ER for evaluation of possible differential diagnosisinclude but not limited too [NSTEMI, hyperglycemia, diabetic ketoacidosis,pneumonia, UTI, stable angina]. The patient's recent symptoms, past medicalhistory, and surgical history will guide the diagnostic workup including imagingand lab test to rule out the above conditions. Shared decision between patient, attending and self. Discussed risk benefits and alternatives to care. patientagreeable to plan of care.External documents reviewed: Previous hospitalizationsEKG: See documentationPertinent laboratory studies are as follows: Remarkable for hyperglycemiaImaging studies are as follows: Unremarkable for any acute abnormalityDecision rule scores evaluated: Patient has a moderate heart score.Code Status: Full codeWill admit at this time for further cardiac observation. Patient agrees toplan.Admit:Patient was re-evaluated and updated on the results. Given the patient'scurrent presentation workup results, I feel the patient requires admission forfurther medical management/workup. The importance of admissions were discussedin detail they verbalized understanding and agreement with this plan. The casewas therefore discussed with hospitalist who agreed with admission. Wediscussed the pertinent information regarding patient's admission. Allquestions were answered appropriately.Dictation. This chart was repaired in part using voice recognition software andthis may contain unintended word substitution or dictation errors despitereasonable efforts to screen for incorrect such errors. If there are anyquestions regarding intended documentation please contact medical records.ED CourseMedication(s) OrderedMedication(s) Ordered:Central Nervous System Agents Sig/Darshana Start time Last Medication Dose Route Stop Time Status Admin Aspirin 324 MG X1ED STA 09/04 1622 DC 09/04 PO 09/04 1623 1842Electrolytic, Caloric, And Lety Sig/Darshana Start time Last Medication Dose Route Stop Time Status Admin Potassium Chloride 40 MEQ X1ED STA 09/04 1828 DC 09/04 PO 09/04 1829 1842 Sodium Chloride 1,000 ML X1ED STA 09/04 1726 DC 09/04 IV 09/04 1825 1841Patient Discharge DepartureVital Signs/ConditionVital SignsFirst Documented: Result Date Time Pulse Ox 97 09/04 1611 B/P 104/55 09/04 1611 O2 Delivery Room air 09/04 1611 Temp 36.8 09/04 1611 Pulse 93 09/04 1611 Resp 18 09/04 1611 B/P Mean 78 09/04 1628Last Documented: Result Date Time Pulse Ox 95 09/04 2014 Pulse 84 09/04 2014 B/P 125/65 09/05 1999 B/P Mean 87 09/05 1999 Resp 16 09/04 1645 O2 Delivery Room air 09/04 1611 Temp 36.8 09/04 1611All vital signs available at the time of this entry have been reviewed.Condition StableClinical ImpressionClinical ImpressionPrimary Impression: Chest painSecondary Impressions: HyperglycemiaTime of Impression 2107Disposition DecisionHospitalize Hosp Physician Name Colton Nolan MD Hosp Physician Hospitalist Request Time 2107 Request Date 09/04/24 )( Accepts Hospitalization Yes )( Accepted Time 2107 )( Accepted Date 09/04/24 Call Information will see patient, agrees with eval, agrees with planDischarge/Care PlanCounseled Regarding Diagnosis, Lab results, Imaging studies, Need for admissionReferralsProvider Referral: No Primary or Family Physician Admit NoteI have spoken with the patient and/or caregivers. I have explained the patient'scondition, diagnoses and treatment plan based on the information available to meat this time. I have answered the patient's and/or caregiver's questions andaddressed any concerns. The patient and/or caregivers have as good anunderstanding of the patient's diagnosis, condition and treatment plan as can beexpected at this point. The patient has been stabilized within the capability ofthe emergency department. The patient will be transported for further care andmanagement or will be moved to an observation or inpatient service. I havecommunicated with the staff or medical practitioner taking over this patient'scare.BILL TAYLOR MD 09/23/24 0135:Past Medical History - AdultAllergiesCoded Allergies:barley (Intermediate, GI SX 06/07/13)gluten (Intermediate, GI SX 06/07/13)hydrocodone (Intermediate, UNKNOWN 06/07/13)lactose (Intermediate, GI SX 06/07/13)meperidine (From DEMEROL) (Intermediate, UNKNOWN 06/07/13)oxycodone (Intermediate, UNKNOWN 06/07/13)wheat (Intermediate, GI SX 06/07/13)Patient Discharge DepartureSupervising Physician Note MidLv/Doc Saw Pt 1I performed a substantive part of the MDM during the patient's E/M visit. Ipersonally evaluated and examined the patient.My (ECG/X-Ray/US/CT) interpretationMY ED INTERPRETATION OF CHEST XRAYNormal Chest XrayLungs - clearHeart - normalNo pneumothoraxNormal mediastinumNo free air under diaphragmPreliminary ED interpretation performed by ED Physician Dr Bill Hortonagement/test interpretation discussed with [Haley]. at 1245 at 0135RPT#:[id number] OF REPORT Quentin Arzola MD- 025 Activity Bathroom privilegesActivity: As Stephen Richard Parsons MD-2024 [facility] ([facility])Discharge SummaryREPORT#:[id number] REPORT STATUS: SignedDATE:08/29/24 TIME: 1408PATIENT: RAMAN BERNAL UNIT #: [id number]#: [id number] ROOM[facility]BED[facility]-ADOB: [birth year]AGE: 59 SEX: M ATTEND: Hayden Mares MDADM AUTHOR: Elena Ramos MD R2REP SRV REP SRV TM: 1408* ALL edits or amendments must be made on the electronic/computer document *Elena Ramos 08/29/24 1408:General InformationDate of admission:Observation Start Date:Date of admission: 08/26/24Discharge date: 08/29/24Discharge diagnosis:New onset AFib, currently in sinus and rate controlledNSTEMICoronary artery disease s/p CABG in 12/10Lateral right 7th rib fractureEnlarged prostate with distended urinary bladderUncontrolled diabetes mellitus type 2Chronic alcohol use dependencyHistory of seizure and strokeEssential hypertensionInsomniaHospital course:This is a 59-year-old male with past medical history of coronary artery diseaseand CABG in 2023, alcohol use disorder, diabetes mellitus type 2 with neuropathy, history of stroke and seizure on Keppra who presents due to headache shortnessof breath chest tightness. Prior to admission with EMS patient was found to bein AFib RVR with heart rate 190 converted back to normal sinus after bolus ofCardizem. Upon admission temperature 98.9 HR 91 RR 18 BP 119/61 saturating 97%on room air. WBC 5.7 HB 15.5 potassium 3.0 bicarb 26 BUN 9 creatinine 1.2 GFR69.2 glucose 413 troponin 57 TSH 0.8 alcohol level 298 AST 52 ALT 53 [id number]. On admission, patient was in AFib RVR and was started on p.o. Cardizemwhich was later stopped because patient converted back to sinus and was ratecontrolled. His troponins were high because of which he was started on heparindrip which was later transitioned to Plavix considering his history of coronaryartery disease and Eliquis because of his high CHADS-VASc.Cardiology was following patient throughout his hospital stay and also startedhim on sotalol. Considering his ongoing chest pain, he was taken forcatheterization on 08/29/2024 which was unremarkable.Patient advised to have a close follow-up with cardiology and PCP and take hisPlavix and Eliquis along with statin and other medications.Consultants: cardiologyPt. condition on discharge: fair, improved, stableAllergies:Allergies:No Known Allergies (Coded, 08/26/24)Med RecMed RecDischarge meds:Stop taking the following medications:cloNIDine (Catapres) 0.1 MG TAB 0.1 MILLIGRAM ORAL DAILY as needed for SBP > 180 OR DBP > 100CarvediloL (Coreg) 3.125 MG TAB 3.125 MILLIGRAM ORAL TWICE DAILY WITH MEALSPotassium Gluconate (Potassium Gluconate) 595 MG (99 MG) TAB 99 MILLIGRAM ORAL DAILYContinue taking these medications:Atorvastatin (Lipitor) 40 MG TAB 40 MILLIGRAM ORAL AT BEDTIMELosartan (Cozaar) 50 MG TAB 50 MILLIGRAM ORAL DAILY Comments: Hold if SBP<110, DBP<60traZODone (DesyreL) 50 MG TAB 50 MILLIGRAM ORAL AT BEDTIMEglipiZIDE (GlucotroL) 5 MG TAB 5 MILLIGRAM ORAL BEFORE BREAKFASTmetFORMIN (Glucophage) 1,000 MG TAB 1,000 MILLIGRAM ORAL TWICE DAILY WITH MEALSlevETIRAcetam (Keppra) 500 MG TAB 500 MILLIGRAM ORAL TWICE DAILYErgocalciferol (Vitamin D2) (Vitamin D2) 1,250 MCG (50,000 UNIT) CAP 1,250 MICROGRAM ORAL SuDulaglutide (Trulicity) 0.75 MG/0.5 ML PEN.INJCTR 0.75 MILLIGRAM SUBCUTANEOUS SuAcetaminophen (TylenoL) 325 MG TAB 325 MILLIGRAM ORAL EVERY 6 HOURS NEEDED as needed for PAINCyanocobalamin (Vitamin B-12) (Vitamin B-12) 1,000 MCG TAB 1,000 MICROGRAM ORAL DAILYFolic Acid (Folic Acid) 1 MG TAB 1 MILLIGRAM ORAL DAILYPyridoxine (Vitamin B6) (Vitamin B-6) 100 MG TAB 100 MILLIGRAM ORAL DAILYMagnesium Oxide (Mag-Ox 400) 400 MG (241.3 MG MAGNESIUM) TAB 400 MILLIGRAM ORAL DAILYStart taking the following new medications:amLODIPine (Norvasc) 10 MG TAB 10 MILLIGRAM ORAL DAILY Days = 30 Qty = 30 Refills = 1 Comments: Hold if SBP<110, DBP<60Lidocaine 4% (Pain Relief Patch) 4 % ADH.PATCH 1 PATCH TRANSDERMAL DAILY Days = 14 Qty = 14 No RefillsclopidogreL (Plavix) 75 MG TAB 75 MILLIGRAM ORAL DAILY Days = 30 Qty = 30 Refills = 4Isosorbide Mononitrate ER (Imdur) 30 MG TAB.ER.24H 30 MILLIGRAM ORAL TWICE DAILY Days = 30 Qty = 60 Refills = 2Apixaban (Eliquis) 5 MG TAB 5 MILLIGRAM ORAL TWICE DAILY Days = 30 Qty = 60 Refills = 2Metoprolol Tartrate (Lopressor) 25 MG TAB 25 MILLIGRAM ORAL TWICE DAILY Days = 30 Qty = 60 Refills = 3ObjectiveVS/I OLast Documented: Result Date Time B/P 167/88 08/29 1250 Pulse 83 08/29 1250 Pulse Ox 97 08/29 1209 B/P Mean 114.2 08/29 1209 O2 Delivery Room air 08/29 1209 Temp 98.1 08/29 1209 Resp 16 08/29 1209 FiO2 21 08/29 054924 hour I O ending at 0700: 08/29 0700 08/28 1900 Intake Total 240 Output Total 600 Balance -360 Intake, Oral 240 Output, Urine 600PATIENT WEIGHT:Weight (lb): 179Weight (oz): 7.3Weight (kg): 81.400General appearance: alert, awake, orientedResultsFindings/Data:Laboratory Tests: 08/29 08/29 08/29 08/29 08/28 1239 0853 0547 0540 2035Chemistry Sodium (136 - 145 mmol/L) 141 Potassium (3.5 - 5.1 mmol/L) 3.9 Chloride (98 - 107 mmol/L) 109 H Carbon Dioxide (20 - 31 mmol/L) 23 Anion Gap (7 - 16 mmol/L) 9 BUN (9 - 23 mg/dL) 15 Creatinine (0.7 - 1.3 mg/dL) 0.8 Est GFR (CKD-EPI 2020) (>90.0) > 90 BUN/Creatinine Ratio (4 - 33) 18 Glucose (57 - 106 mg/dL) 99 POC Glucose (70 - 110 mg/dl) 169 H 186 H 113 H 144 H Calcium (8.7 - 10.4 mg/dL) 8.1 L Magnesium (1.6 - 2.6 mg/dL) 1.8 Total Bilirubin (0.3 - 1.2 mg/dL) 1.1 AST (0 - 34 U/L) 73 H ALT (10 - 49 U/L) 45 Alkaline Phosphatase (46 - 116 U/L) 181 H Total Protein (5.7 - 8.2 g/dL) 5.5 L Albumin (3.2 - 4.8 g/dL) 3.3 Globulin (1.4 - 4.8 g/dL) 2.2 Albumin/Globulin Ratio (0.7 - 3.6) 1.5Coagulation PT (10.0 - 12.8 Seconds) 12.1 INR (0.8 - 1.1) 1.1 APTT (25 - 38 Seconds) 31Hematology WBC (4.0 - 10.5 10 3/uL) 4.3 RBC (4.63 - 6.08 10 6/uL) 3.74 L Hgb (13.7 - 17.5 g/dL) 12.1 L Hct (40.1 - 51.0 %) 35.9 L MCV (79.0 - 92.2 fL) 96.0 H MCH (25.7 - 32.2 pg) 32.4 H MCHC (32.3 - 36.5 g/dL) 33.7 RDW (11.6 - 14.4 %) 13.9 Plt Count (150 - 400 10 3/uL) 104 L MPV (9.4 - 12.4 fL) 10.1 Immature Gran % (0.0 - 0.4 %) 0.2 Neutrophils % (34.0 - 67.9 %) 56.9 Lymphocytes % (21.8 - 53.1 %) 29.3 Monocytes % (5.3 - 12.2 %) 9.4 Eosinophils % (0.8 - 7.0 %) 3.7 Basophils % (0.2 - 1.2 %) 0.5 Nucleated RBC % (0.0 - 0.2 %) 0.0 Immature Gran # (0.00 - 0.03 10 3/uL) 0.01 Neutrophils # (1.78 - 5.38 10 3/uL) 2.43 Lymphocytes # (1.32 - 3.57 10 3/uL) 1.25 L Monocytes # (0.30 - 0.82 10 3/uL) 0.40 Eosinophils # (0.04 - 0.54 10 3/uL) 0.16 Basophils # (0.01 - 0.08 10 3/uL) 0.02 Nucleated RBCs # (0.00 - 0.18 0.0010 3/uL) 08/28 1529 Chemistry POC Glucose (70 - 110 mg/dl) 147 HResults: labs reviewed, vital signs reviewed, vital signs stable, current medprofile rev'dFree Text Obj NotesFree Text Obj Notes:Please refer to progress note from 08/29/2024 for physical exam findings.Treatments ProceduresLab:Chemistry last 24 hrs: 08/29 0540 Chemistry Sodium (136 - 145 mmol/L) 141 Potassium (3.5 - 5.1 mmol/L) 3.9 Chloride (98 - 107 mmol/L) 109 H BUN (9 - 23 mg/dL) 15 Creatinine (0.7 - 1.3 mg/dL) 0.8 Glucose (57 - 106 mg/dL) 99 AST (0 - 34 U/L) 73 H ALT (10 - 49 U/L) 45Hematology last 24 hrs: 08/29 0540 Hematology WBC (4.0 - 10.5 10 3/uL) 4.3 Hgb (13.7 - 17.5 g/dL) 12.1 L Hct (40.1 - 51.0 %) 35.9 L Plt Count (150 - 400 10 3/uL) 104 LCoagulation last 24 hrs: 08/29 0540 Coagulation PT (10.0 - 12.8 Seconds) 12.1 INR (0.8 - 1.1) 1.1 APTT (25 - 38 Seconds) 31Imaging:Recent Impressions:COMPUTERIZED TOMOGRAPHY - CT BRAIN W/O CONTRAST 08/28 1204 Report Impression - Status: SIGNED Entered: 08/28/2024 1353IMPRESSION:1. No acute intracranial hemorrhage, mass effect or CT evidenceof an acute territorial infarct. If there is ongoing clinicalconcern for acute infarction, MRI is recommended for furtherevaluation.2. Encephalomalacia/gliosis in the left parasagittalfrontal/parietal region and to a lesser extent along the highparasagittal posterior right frontal lobe.3. Mild volume loss, chronic microangiopathy andatherosclerotic changes, as above.4. Changes of advanced chronic sinusitis, as above.Interpreted by: Grupo MARTINEZ personally have reviewed the imaging as well as the resident'sinterpretation and agree with the above report.Electronically signed by: Keyonna Vazquez MD 08/28/2024 01:50 PMEDT RPWorkstation: [id number] By: ALESSIA VAZQUEZ, MDDischarge InstructionsPCPPCP:PCP: Walker Lui MD)( Discharge to: Home/Self CareDischarge InstructionsAdditional Discharge Routines: PCP Follow-Up, Creative Technologist Follow-Up)( Diet: Regular)( Activity: As ToleratedDischarge management: greater than 30 minsTime spent: Time spent on patient care (minutes): 45Follow-up AppointmentsPCP follow up: PCP: Walker Lui MD Phone: PCP follow up timeframe: In 1-2 weeksConsulting provider 1: Provider 1: John Arredondo MD Specialty: CARDIOLOGY/INTERVENTIONAL HAYDEN MARES MD 08/31/24 0814:General InformationHospital course:MR s history reviewed. The patient was interviewed and examined by me. I agreewith the assessment and care plan and confirm the diagnosis(es) above. at 1200 at 0820RPT#:[id number] OF REPORT Richard Parsons [facility]-2024 [facility]Hospital[facility] Progress NoteREPORT#:[id number] REPORT STATUS: SignedDATE:08/29/24 TIME: 622PATIENT: RAMAN BERNAL UNIT #: [id number]#: [id number] ROOM/BED: [facility]-ADOB: [birth year]AGE: 59 SEX: M ATTEND: Hayden Mares MDADM AUTHOR: Elena Ramos MD R2REP SRV REP SRV TM: 0623* ALL edits or amendments must be made on the electronic/computer document *Elena Ramos 08/29/24 0623:SubjectiveChief complaint:Headache, shortness of breath, palpitations chest tightnessHPI:Patient seen and examined at bedside this morning. Per nursing no acute eventsovernight. Patient continues to complain of chest pain this morning but wasalert oriented e2GyamuavcqTuqhbxhCP/I O:Vital Signs: Date Time Temp Pulse Resp B/P B/P Pulse O2 O2 Flow FiO2 Mean Ox Delivery Rate 08/29 1250 83 167/88 08/29 1209 98.1 83 16 167/88 114.2 97 Room air 08/29 0954 78 16 116/54 74.6 97 Room air 08/29 0925 83 84/45 08/29 0924 83 84/45 08/29 0912 83 84/45 08/29 0848 75 142/81 08/29 0709 98.1 75 16 142/81 101.3 97 Room air 08/29 0649 97 Room air 21 08/29 0551 75 131/73 08/29 0548 98.2 75 14 131/73 92.5 97 08/29 0000 98.1 76 16 159/87 111.2 98 08/28 2307 67 123/67 08/28 2304 67 123/67 08/28 2301 67 123/67 08/28 2036 97.9 67 18 123/67 85.8 97 08/28 1855 65 104/66 08/28 1533 97.3 65 14 104/66 78.5 97 Room air24 hour I O ending at 0700: 08/29 0700 08/28 1900 Intake Total 240 Output Total 600 Balance -360 Intake, Oral 240 Output, Urine 600PATIENT WEIGHT:Weight (lb): 179Weight (oz): 7.3Weight (kg): 81.400Medications:Active Meds + DC'd Last 24 HrsDiclofenac Sodium (DICLOFENAC SODIUM TOPICAL GEL 1%) 2 GM QID TOPICALIopamidol (ISOVUE-370 200 ML) 65 ML .STK-MED ONE IV (DC)Fentanyl Citrate (SUBLIMAZE 100 MCG/2 ML INJ) 0 .STK-MED ONE IV (DC)Midazolam HCl (VERSED 1 MG/ML 2 ML VIAL) 0 .STK- MED ONE IV (DC)Heparin Sodium/Sodium Chloride (HEPARIN 2000 UNITS/NS 1000ML) 2,000 ML .STK-MED ONE I-ARTERIAL (DC)Lidocaine HCl (LIDOCAINE HCL 2% 20 ML VIAL) 0 .STK- MED ONE SUBQ (DC)Sodium Chloride (SODIUM CHLORIDE 0.9% 1000 ML SOLN) 1,000 ML BOLUS ONE IV (DC)Amlodipine Besylate (NORVASC 5 MG TABLET) 10 MG DAILY POIsosorbide Mononitrate (IMDUR 30MG TABLET SA) 30 MG BID POLosartan Potassium (COZAAR 50 MG TABLET) 50 MG DAILY POBudesonide (PULMICORT 0.5MG SUSPENSION) 0.5 MG RTBID INHAminophylline (AMINOPHYLLINE 500 MG/20 ML VIAL) 100 MG PROCEDURE IV (DC)Regadenoson (LEXISCAN 0.4 MG/5 ML) 0.4 MG PROCEDURE IV (DC)Sodium Chloride (NORMAL SALINE LOCK/FLUSH) 5 ML PROCEDURE FLUSH (DC)Sodium Chloride (SODIUM CHLORIDE 0.9% SOLN 250 ML) 250 ML PROCEDURE IV (DC)Atorvastatin Calcium (LIPITOR 40MG TABLET) 40 MG BEDTIME PONitroglycerin (NITRO-BID 2% OINTMENT) 1 IN Q6HR TOPICAL (CKD)Magnesium Oxide (MAG-OX 400 MG TABLET) 400 MG Q4H PRN PRN POMagnesium Sulfate (MAGNESIUM SULFATE 4 G/100 ML BAG) 100 ML ASDIR PRN IVPotassium Bicarbonate/Citric Acid (EFFER-K 10 MEQ TAB.EFF FOR ORAL SOLUTION)20 MEQ Q2H PRN PRN FEED-TUBEPotassium Chloride (K-DUR 20 MEQ TABLET SA) 20 MEQ Q2H PRN PRN POPotassium Chloride/Water (POTASSIUM CL 10MEQ/100 ML JEANIE) 100 ML Q2H PRN PRN IVSotalol HCl (BETAPACE 80 MG TABLET) 80 MG Q12HR POClopidogrel Bisulfate (PLAVIX 75 MG TAB) 75 MG DAILY POFolic Acid (FOLIC ACID 1MG TABLET) 1 MG DAILY POLevetiracetam (KEPPRA 500 MG TABLET) 500 MG BID POLidocaine (LIDOCAINE 4% PATCH) 1 PATCH DAILY TRANSDERMSodium Chloride (NORMAL SALINE LOCK/FLUSH) 10 ML Q12HR IVThiamine HCl (VITAMIN B1 100MG TABLET) 100 MG DAILY POInsulin Human Regular (HUMULIN R 100 UNITS/ML VIAL) AGGRESSIVE SLIDING SCALE 61-150 MG/DL, 0 UNITS 151-200 MG/DL, 2 UNITS 201-250 MG/DL, 4 UNITS 251-300 MG/DL, 6 UNITS 301-350 MG/DL, 8 UNITS 351-399 MG/DL, 10 UNITS >= 400 MG/DL, 12 UNITS AND CALL RESULTS TO PHYSICIAN AC HS SUBQSodium Chloride (NORMAL SALINE LOCK/FLUSH) 10 ML ASDIR PRN IVChlordiazepoxide HCl (LIBRIUM 5 MG CAP) 10 MG TID POMorphine Sulfate (morphine SULFATE 2 MG/ML INJ (FK)) 2 MG Q2H PRN PRN IVOndansetron HCl (ZOFRAN ODT 4 MG) 4 MG Q4H PRN PRN PODextrose (GLUCOSE 4 GM TABLET) 16 GM ASDIR PRN PODextrose/Water (DEXTROSE 50%/WATER 50 ML ABBOJECT) If patient unable toswallow and has IV access * blood sugar 60-69 mg/dl- hold insulin and administer 15 mL (7.5 grams); * Blood sugar 50-59 mg/dl- hold insulin and administer 20 mL (10 grams); * Blood sugar 30-49 mg/dl- hold insulin and administer 25 mL (12.5 grams); * Blood sugar < 30 mg/dl- hold insulin and administer 30 mL (15 grams) recheck in 15 minutes and notify physician for further instruction ASDIR PRN IVNitroglycerin (NITROSTAT 0.4 MG TABLET SL) 0.4 MG Q5M PRN PRN SLLorazepam (ATIVAN 2 MG/1 ML VIAL) 2 MG Q1H PRN PRN IVResultsFindings/Data:Laboratory Tests 08/29 08/29 08/29 08/29 08/28 1239 0853 0547 0540 5 Chemistry Sodium (136 - 145 mmol/L) 141 Potassium (3.5 - 5.1 mmol/L) 3.9 Chloride (98 - 107 mmol/L) 109 H Carbon Dioxide (20 - 31 mmol/L) 23 Anion Gap (7 - 16 mmol/L) 9 BUN (9 - 23 mg/dL) 15 Creatinine (0.7 - 1.3 mg/dL) 0.8 Est GFR (CKD-EPI 2020) (>90.0) > 90 BUN/Creatinine Ratio (4 - 33) 18 Glucose (57 - 106 mg/dL) 99 POC Glucose (70 - 110 mg/dl) 169 H 186 H 113 H 144 H Calcium (8.7 - 10.4 mg/dL) 8.1 L Magnesium (1.6 - 2.6 mg/dL) 1.8 Total Bilirubin (0.3 - 1.2 mg/dL) 1.1 AST (0 - 34 U/L) 73 H ALT (10 - 49 U/L) 45 Alkaline Phosphatase (46 - 116 U/L) 181 H Total Protein (5.7 - 8.2 g/dL) 5.5 L Albumin (3.2 - 4.8 g/dL) 3.3 Globulin (1.4 - 4.8 g/dL) 2.2 Albumin/Globulin Ratio (0.7 - 3.6) 1.5 08/28 1529 Chemistry POC Glucose (70 - 110 mg/dl) 147 HLaboratory Tests 08/29 0540 Coagulation PT (10.0 - 12.8 Seconds) 12.1 INR (0.8 - 1.1) 1.1 APTT (25 - 38 Seconds) 31Laboratory Tests 08/29 0540 Hematology WBC (4.0 - 10.5 10 3/uL) 4.3 RBC (4.63 - 6.08 10 6/uL) 3.74 L Hgb (13.7 - 17.5 g/dL) 12.1 L Hct (40.1 - 51.0 %) 35.9 L MCV (79.0 - 92.2 fL) 96.0 H MCH (25.7 - 32.2 pg) 32.4 H MCHC (32.3 - 36.5 g/dL) 33.7 RDW (11.6 - 14.4 %) 13.9 Plt Count (150 - 400 10 3/uL) 104 L MPV (9.4 - 12.4 fL) 10.1 Immature Gran % (0.0 - 0.4 %) 0.2 Neutrophils % (34.0 - 67.9 %) 56.9 Lymphocytes % (21.8 - 53.1 %) 29.3 Monocytes % (5.3 - 12.2 %) 9.4 Eosinophils % (0.8 - 7.0 %) 3.7 Basophils % (0.2 - 1.2 %) 0.5 Nucleated RBC % (0.0 - 0.2 %) 0.0 Immature Gran # (0.00 - 0.03 10 3/uL) 0.01 Neutrophils # (1.78 - 5.38 10 3/uL) 2.43 Lymphocytes # (1.32 - 3.57 10 3/uL) 1.25 L Monocytes # (0.30 - 0.82 10 3/uL) 0.40 Eosinophils # (0.04 - 0.54 10 3/uL) 0.16 Basophils # (0.01 - 0.08 10 3/uL) 0.02 Nucleated RBCs # (0.00 - 0.18 10 3/uL) 0.00Results: labs reviewed, vital signs reviewed, vital signs stable, current medprofile rev'dFree Text Obj NotesFree Text Obj Notes:General appearance: alert, awake, oriented, no acute distress, pleasant,conversationalHead/Eyes: EOMI, normocephalic, PERRLENT: moist mucosal membrane, normal dentition, normal pharynxNeck: full range of motion, non-tender, no JVDCardiovascular: Chest pain reproducible, normal S1, S2, no murmur/gallops/rubsRespiratory: Symmetrical chest rise, no tracheal deviation, no accessory muscleuse, crackles are appreciated in lower lung bowman bilaterallyAbdomen: soft, non-tender, normal bowel sounds, no distention, no guardingGenitourinary: no flank pain, no foleyExtremities: moves all, normal capillary refill, no edemaMusculoskeletal: normal inspection, painless range of motionNeuro/AGRICULTURE MANAGER: alert, oriented x3, CN II to XII intact, Motor: Power 5/5 in B/Lupper and lower extremities, Coordination: Intact finger to nose test in B/L UEand heel to hatch test in B/L LE, Reflex: 2+ in Biceps and patellar tendon,Sensations intact, Gait unassesed.Skin: dry, intactPsychiatry: normal affect, normal judgment/insight, normal moodDiagnosis, Assessment PlanFree Text DxA P NotesFree text DxA P notes:This is a 59-year-old male with past medical history of coronary artery diseaseand CABG in 2023, alcohol use disorder, diabetes mellitus type 2 with neuropathy, history of stroke and seizure on Keppra who presents due to headache shortnessof breath chest tightness. Prior to admission with EMS patient was found to bein AFib RVR with heart rate 190 converted back to normal sinus after bolus ofCardizem. Upon admission temperature 98.9 HR 91 RR 18 BP 1 19/61 saturating 97% on room air. WBC 5.7 HB 15.5 potassium 3.0 bicarb 26 BUN 9 creatinine 1.2 GFR69.2 glucose 413 troponin 57 TSH 0.8 alcohol level 298 AST 52 ALT 53 [id number]. Patient is admitted in stable condition for new onset atrial fibrillationwith RVR.Assessment and plan:New onset atrial fibrillation with RVR-currently normal sinus rhythm ratecontrolledChads Vasc score 5 HASBLED 3-History of coronary artery disease and CABG in 2023, alcohol use disorderhistory of stroke and TIA. Patient continues to be current everyday drinker andsmoker. Denies history of major bleeding.-Potassium 3.0 TSH 0.8 Alcohol level 298-Keep potassium above 4 and magnesium above 2-Stress test by cardiology: Suggestive of old infarct vs diaphragmaticattnuation. No signifcant ischemia is noted, Ejection fraction is 38%.-ECHO: EF 55-60% with grade I diastolic dysfunction-Cardiology on board, recommended sotalol 80mg BID, losartan 50 mg daily p.o.NSTEMI-We will start Plavix 75 mg daily during this admission since patient is lessthan 1 year out from CABG not on any antiplatelets currently. Continue Vpelsfr93 mg daily.-Starting Nitro paste 1inch q6hrs, Imdur 30mg daily. Continue Aspirin, plavix,sotalol, Imdur and losartan-Stress test by cardiology: Suggestive of old infarct vs diaphragmaticattnuation. No signifcant ischemia is noted, Ejection fraction is 38%.-Cardiology on board, continue losartan 50 mg daily p.o., Imdur 30 mg b.i.d.p.o., amlodipine 10 mg daily p.o., Plavix. Plan on cardiac catheterizationtodayCoronary artery disease with CABG in 11/2023-Patient had procedure done in [place], unsure of echocardiogram results. Patient no longer takes Plavix or aspirin only takes Lipitor 40 mg.-We will start Plavix 75 mg daily during this admission since patient is lessthan 1 year out from CABG not on any antiplatelets currently. Continue Hooqfqu65 mg daily.Lateral right 7th rib fracture-Denies pain or recent coughing episodes at this time, incidental finding on CTAchest-Lidocaine patch if needed.Colitis-Denies diarrhea, recent GI symptoms, incidental finding on imaging. Continueto monitorEnlarged prostate with distended urinary bladder-Denies incontinence, urinary dribbling, dysuria endorses nocturia 2-3 times atnight. Denies history of prostate cancer-CT abdomen pelvis reveals distended bladder with enlarged prostate andrecommend correlation with PSA level. 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 at home.-Blood glucose on admission 413-10 units lispro given on admission-Adjust regimen based on sliding scale insulin requirementsChronic Alcohol use dependency, acute intoxication-Patient states he drinks 64 oz of hard lemonade daily. Has been drinker sinceadolescence. States he used to be dependent narcotics and replaced with alcohol. Denies history of cirrhosis.-On admission AST 52 ALT 53 alk-phos 175-Abdomen pelvis CT reveals hepatic steatosis-CIWA protocol in place with Librium 10 mg p.o. t.i.d., thiamine, folateHistory of seizure and stroke-Patient has history of stroke and seizure during same hospitalization roughly 11/2 years ago. Patient was started on Keppra 500 mg b.i.d. at that time reportsno subsequent episodes of seizure activity.-Continue Keppra 500 mg b.i.d.Essential hypertensionBlood pressure on admission 114/61, continue Cozaar 50 mg daily and clonidine0.1 mg p.r.n. for SBP greater than 180InsomniaContinue trazodone 50 mg dailyVTE: Lovenox 40mg dailyFEN:PO hydrationHypokalemia, hypomagnesemia, repletingHeart healthy dietDisposition:- Cardiology on board, patient underwent cardiac catheterization today which wasunremarkable and was cleared for discharge.Patient seen, examined and discussed with Dr. Mares, attending physician.HAYDEN MARES MD 08/30/24 3468:Diagnosis, Assessment PlanAdditional comments: s history reviewed. The patient was interviewed and examined by me. I agreewith the assessment and care plan and confirm the diagnosis(es) above. at 1429 at 0731RPT#:[id number] OF REPORT Graf Emre Torres [id number] [place] [address] ([facility])Cardiology ConsultationREPORT#:[id number] REPORT STATUS: SignedDATE:08/28/24 TIME: 1603PATIENT: RAMAN BERNAL UNIT #: [id number]#: [id number] [facility]AGE: 59 SEX: M ATTEND: Hayden Mares MDADM AUTHOR: Emre Owusu APRNREP SRV REP SRV TM: 1603* ALL edits or amendments must be made on the electronic/computer document *MISAEL,EMRE Torres. INFRASTRUCTURE TECH 08/28/24 1603:History of Present IllnessHPIChief complaint:Chest pain back pain like painHPI:Mr. Raman Bernal is a 59-year-old male with past medical history of CAD s/p3v CABG 12/10 [place], HTN, HLD, CVA, seizure disorder, alcohol abuse [facility]. He reports he has been feeling headachechest pain chest tightness dyspnea started acutely and would be intermittent.He noted pain was severe. He felt similar to his [place] prior to his CABG. He alsonoted back pain and leg pain with neuropathy. Given his acute worseningsymptoms he talked medical attention. Per EMS he was in AFib with RVR heartrate 190s. He was given diltiazem cream for normal sinus rhythm. In the ERheart rate 91, blood pressure 131/76. Lab work notable for troponin 57,magnesium 1.7, potassium 3.0. He was a daily heavy drinker. His chest pain hasimproved nearly resolved with rhythm correction. He was admitted for furtherworkup. Cardiology consulted for evaluation. Currently he feels fatigueoverall with back pain for about dual pain and leg pain.History - Adult longitudinalPast medical history:Reports: Alcoholism/subst abuse, Coronary artery disease, Diabetes mellitus,Hypertension, Seizure disorder, Transient ischemic attack. Denies: COPD,Bleeding disorder.Past surgical history:Reports: CABG.Alcohol use: Alcohol useSmoking status for patients 13 years old or older: Current every day smokerAllergies:Coded Allergies:No Known Allergies (08/26/24)Review of SystemsUnable to obtain due to:Patient heavily somnolentFree Text ROS NotesFree Text ROS Notes:General: +fatigue + weakness, negative chills, negative fever, negative nightsweatsHEENT: Negative visual changes, negative impaired vision, negative tinnitus,negative vertigo, negative sore throat.Heart: + chest pain, negative dyspnea on exertion, negative palpitations,negative edemaLungs:+ dyspnea, no cough, no orthopnea, no PND, no wheezing, no productiveGI: Negative dysphagia, negative nausea, negative vomiting, negative hematemesis, negative abdominal pain.: Negative frequency, negative urgency, negative dysuria, negativeincontinence.MSK: Negative myalgia, negative joint pain, negative stiffness, negativeweakness, negative back pain.Psych: No depression, No anxiety, No SI/HIEndocrine: no heat intolerance, no cold intolerance, no weight changesSkin: Negative rash, negative jaundice.Heme: Negative bleeding, negative bruisability.Neuro: Negative headaches, negative syncope, negative seizures, + weakness,negative tremorObjectiveGeneralVS/I O:Laboratory Tests 08/28 08/28 1353 0534 Chemistry Sodium (136 - 145 mmol/L) 141 138 Potassium (3.5 - 5.1 mmol/L) 3.5 4.0 Chloride (98 - 107 mmol/L) 110 H 106 BUN (9 - 23 mg/dL) 14 12 Creatinine (0.7 - 1.3 mg/dL) 0.9 0.9 Glucose (57 - 106 mg/dL) 137 H 177 H Calcium (8.7 - 10.4 mg/dL) 8.2 L 8.8 Magnesium (1.6 - 2.6 mg/dL) 1.5 LCurrent Medications Sig/Darshana Start time Last Medication Dose Route Stop Time Status Admin Sodium Chloride 1,000 ML BOLUS ONE 08/28 1040 DC 08/28 IV 08/28 1239 1258 Amlodipine Besylate 5 MG DAILY 08/28 0900 DC 08/28 PO 0814 Amlodipine Besylate 10 MG DAILY 08/28 899 AC PO Isosorbide 30 MG BID 08/28 899 AC Mononitrate PO Losartan Potassium 100 MG DAILY 08/28 09 DC PO Losartan Potassium 50 MG DAILY 08/28 899 AC PO Metoprolol Succinate 50 MG DAILY 08/28 0900 CAN PO Apixaban 5 MG BID 08/27 2100 CAN PO Budesonide 0.5 MG RTBID 08/27 0730 AC 08/28 INH 0645 Aminophylline 100 MG PROCEDURE 08/27 0406 CKD IV 08/29 0405 Regadenoson 0.4 MG PROCEDURE 08/27 0406 AC 08/27 IV 08/29 0405 1000 Sodium Chloride 5 ML PROCEDURE 08/27 0406 AC 08/27 FLUSH 08/29 0405 1000 Sodium Chloride 250 ML PROCEDURE 08/27 0406 AC IV 08/29 0405 Atorvastatin Calcium 40 MG BEDTIME 08/26 2100 AC 08/27 PO 211 Trazodone HCl 50 MG BEDTIME 08/26 2100 DC 08/27 PO 211 Nitroglycerin 1 IN Q6HR 08/26 1800 CKD 08/28 TOPICAL 0513 Magnesium Oxide 400 MG Q4H PRN PRN 08/26 1130 AC 08/27 PO 1435 Magnesium Sulfate 100 ML ASDIR PRN 08/26 1130 AC 08/28 IV 0812 Potassium 20 MEQ Q2H PRN PRN 08/26 1130 AC Bicarbonate/Citric FEED-TUBE Acid Potassium Chloride 20 MEQ Q2H PRN PRN 08/26 1130 AC 08/27 PO 2121 Potassium Chloride/ 100 ML Q2H PRN PRN 08/26 1130 AC Water IV Sotalol HCl 80 MG Q12HR 08/26 1119 AC 08/28 PO 0816 Isosorbide 30 MG DAILY 08/26 1034 DC 08/28 Mononitrate PO 0815 Heparin Sodium 2,000 UNITS ASDIR PRN 08/26 0824 DC (Porcine) IV Heparin Sodium 4,000 UNITS ASDIR PRN 08/27 923 DC (Porcine) IV Heparin Sodium/ 500 ML ASDIR 08/27 923 DC 08/26 Sodium Chloride IV 1020 Miscellaneous 1 EACH ASDIR 08/26 922 DC Medication MISC Clopidogrel Bisulfate 75 MG DAILY 08/26 899 AC 08/28 PO 0815 Folic Acid 1 MG DAILY 08/26 899 AC 08/26 PO 0833 Levetiracetam 500 MG BID 08/26 899 AC 08/28 PO 0814 Lidocaine 1 PATCH DAILY 08/26 899 AC 08/26 TRANSDERM 0835 Losartan Potassium 50 MG DAILY 08/26 899 DC 08/26 PO 0833 Sodium Chloride 10 ML Q12HR 08/26 09 AC 08/28 IV 0816 Thiamine HCl 100 MG DAILY 08/26 09 AC 08/26 PO 0834 Insulin Human Regular See Dose AC HS 08/26 08 AC 08/28 Insts (1) SUBQ 0900 Sodium Chloride 10 ML ASDIR PRN 08/26 0430 AC IV Chlordiazepoxide HCl 10 MG TID 08/26 0401 AC 08/28 PO 0814 Clonidine HCl 0.1 MG DAILY PRN 08/26 0359 DC 08/28 PO 0606 Morphine Sulfate 2 MG Q2H PRN PRN 08/26 0350 AC 08/28 IV 0606 Ondansetron HCl 4 MG Q4H PRN PRN 08/26 0350 AC PO Dextrose 16 GM ASDIR PRN 08/26 0348 AC PO Dextrose/Water See Dose ASDIR PRN 08/26 0348 AC Insts (2) IV Nitroglycerin 0.4 MG Q5M PRN PRN 08/26 0348 AC SL Lorazepam 2 MG Q1H PRN PRN 08/26 0341 AC 08/28 IV 0646 Lorazepam 4 MG Q1H PRN PRN 08/26 0341 DC 08/28 IV 0812Dose Instructions:(1)Insulin Human Regular: AGGRESSIVE SLIDING SCALE 61-150 MG/DL, 0 UNITS 151-200 MG/DL, 2 UNITS 201-250 MG/DL, 4 UNITS 251-300 MG/DL, 6 UNITS 301-350 MG/DL, 8 UNITS 351-399 MG/DL, 10 UNITS >= 400 MG/DL, 12 UNITS AND CALL RESULTS TO PHYSICIAN(2)Dextrose/Water: If patient unable to swallow and has IV access * blood sugar 60-69 mg/dl- hold insulin and administer 15 mL (7.5 grams); * Blood sugar 50-59 mg/dl- hold insulin and administer 20 mL (10 grams); * Blood sugar 30-49 mg/dl- hold insulin and administer 25 mL (12.5 grams); * Blood sugar < 30 mg/dl- hold insulin and administer 30 mL (15 grams) recheck in 15 minutes and notify physician for further instruction 0608/28 1353 1032 0553 0534 1937 Chemistry Sodium (136 - 145 mmol/L) 141 138 Potassium (3.5 - 5.1 mmol/L) 3.5 4.0 Chloride (98 - 107 mmol/L) 110 H 106 Carbon Dioxide (20 - 31 mmol/L) 25 23 Anion Gap (7 - 16 mmol/L) 6 L 9 BUN (9 - 23 mg/dL) 14 12 Creatinine (0.7 - 1.3 mg/dL) 0.9 0.9 Est GFR (CKD-EPI 2020) (>90.0) > 90 > 90 BUN/Creatinine Ratio (4 - 33) 15 13 Glucose (57 - 106 mg/dL) 137 H 177 H POC Glucose (70 - 110 mg/dl) 219 H 213 H 126 H Calcium (8.7 - 10.4 mg/dL) 8.2 L 8.8 Magnesium (1.6 - 2.6 mg/dL) 1.5 L Total Bilirubin (0.3 - 1.2 mg/dL) 0.9 AST (0 - 34 U/L) 59 H ALT (10 - 49 U/L) 42 Alkaline Phosphatase (46 - 116 U/L) 189 H Troponin I High Sens (<54 ng/L) 55 CH Total Protein (5.7 - 8.2 g/dL) 5.4 L Albumin (3.2 - 4.8 g/dL) 3.3 Globulin (1.4 - 4.8 g/dL) 2.1 Albumin/Globulin Ratio (0.7 - 3.6) 1.6 08/28 0725 Hematology WBC (4.0 - 10.5 10 3/uL) 5.2 RBC (4.63 - 6.08 10 6/uL) 4.44 L Hgb (13.7 - 17.5 g/dL) 14.3 Hct (40.1 - 51.0 %) 42.5 MCV (79.0 - 92.2 fL) 95.7 H MCH (25.7 - 32.2 pg) 32.2 MCHC (32.3 - 36.5 g/dL) 33.6 RDW (11.6 - 14.4 %) 13.8 Plt Count (150 - 400 10 3/uL) 105 L 08/28 0534 Coagulation PT (10.0 - 12.8 Seconds) 12.1 INR (0.8 - 1.1) 1.1 APTT (25 - 38 Seconds) 31Laboratory Tests 08/28 08/27 08/27 0751 1223 0141 Hematology WBC (4.0 - 10.5 10 3/uL) 5.2 6.0 RBC (4.63 - 6.08 10 6/uL) 4.44 L 3.78 L Hgb (13.7 - 17.5 g/dL) 14.3 11.8 L Hct (40.1 - 51.0 %) 42.5 35.9 L MCV (79.0 - 92.2 fL) 95.7 H 95.0 H MCH (25.7 - 32.2 pg) 32.2 31.2 MCHC (32.3 - 36.5 g/dL) 33.6 32.9 RDW (11.6 - 14.4 %) 13.8 14.2 Plt Count (150 - 400 10 3/uL) 105 L 93 L 95 LLaboratory Tests 08/28 08/28 08/28 08/28 08/27 1353 1032 0553 0534 1937 Chemistry Sodium (136 - 145 mmol/L) 141 138 Potassium (3.5 - 5.1 mmol/L) 3.5 4.0 Chloride (98 - 107 mmol/L) 110 H 106 Carbon Dioxide (20 - 31 mmol/L) 25 23 Anion Gap (7 - 16 mmol/L) 6 L 9 BUN (9 - 23 mg/dL) 14 12 Creatinine (0.7 - 1.3 mg/dL) 0.9 0.9 Est GFR (CKD-EPI 2020) (>90.0) > 90 > 90 BUN/Creatinine Ratio (4 - 33) 15 13 Glucose (57 - 106 mg/dL) 137 H 177 H POC Glucose (70 - 110 mg/dl) 219 H 213 H 126 H Calcium (8.7 - 10.4 mg/dL) 8.2 L 8.8 Magnesium (1.6 - 2.6 mg/dL) 1.5 L Total Bilirubin (0.3 - 1.2 mg/dL) 0.9 AST (0 - 34 U/L) 59 H ALT (10 - 49 U/L) 42 Alkaline Phosphatase (46 - 116 U/L) 189 H Troponin I High Sens (<54 ng/L) 55 CH Total Protein (5.7 - 8.2 g/dL) 5.4 L Albumin (3.2 - 4.8 g/dL) 3.3 Globulin (1.4 - 4.8 g/dL) 2.1 Albumin/Globulin Ratio (0.7 - 3.6) 1.6 08/27 08/27 08/27 08/27 08/26 1511 0542 0433 0141 1941 Chemistry Sodium (136 - 145 mmol/L) 143 Potassium (3.5 - 5.1 mmol/L) 3.5 Chloride (98 - 107 mmol/L) 110 H Carbon Dioxide (20 - 31 mmol/L) 26 Anion Gap (7 - 16 mmol/L) 7 BUN (9 - 23 mg/dL) 14 Creatinine (0.7 - 1.3 mg/dL) 0.9 Est GFR (CKD-EPI 2020) (>90.0) > 90 BUN/Creatinine Ratio (4 - 33) 15 Glucose (57 - 106 mg/dL) 91 POC Glucose (70 - 110 mg/dl) 303 H 131 H 258 H Calcium (8.7 - 10.4 mg/dL) 7.8 L Magnesium (1.6 - 2.6 mg/dL) 1.4 L Troponin I High Sens (<54 ng/L) 126 CHVital Signs: Date Time Temp Pulse Resp B/P B/P Pulse O2 O2 Flow FiO2 Mean Ox Delivery Rate 08/28 1533 97.3 65 14 104/66 78.5 97 Room air 08/28 1133 98.4 80 14 107/64 78.1 96 Room air 08/28 1059 83 99/59 72.5 08/28 1037 97.5 77 14 79/40 53.0 96 Room air 08/28 0816 107 197/130 08/28 0815 107 197/130 08/28 0814 107 197/130 08/28 0726 98 Room air 08/28 0719 98.8 107 14 197/130 152.2 95 Room air 08/28 0706 107 197/130 08/28 0606 100 184/119 08/28 0554 98.1 100 16 184/119 140.5 96 08/28 0513 92 179/98 08/27 2347 92 179/98 08/27 2342 97.3 92 16 179/98 125.1 97 08/27 2112 102 154/95 08/27 1938 97.9 102 16 154/95 114.4 97 08/27 1806 99 161/8924 hour I O ending at 0700: 08/28 0700 08/27 1900 Intake Total 580 Output Total 200 Balance 380 Intake, Oral 580 Number 2 Incontinent Voids Number Voids 3 Output, Urine 200 Patient 179 lb Weight Weight Bed scale Measurement MethodPATIENT WEIGHT:Weight (lb): 179Weight (oz): 7.3Weight (kg): 81.400Physical ExamGeneral appearance: sleeping comfortably (Snoring)Cardiovascular: CV assessment: regular rate and rhythmRespiratory: clear to auscultationFree Text Obj NotesFree Text Obj Notes:General: fair appearing, in no distress. Oriented x 3,Skin: Good turgor, no rash, unusual bruising or prominent lesionsHEENT: Normocephalic, atraumatic, conjunctiva clear, sclera non-icteric, Mucousmembranes moist, no mucosal lesions.Neck: Supple, without lesions, bruits, or adenopathy, thyroid non- enlarged. Nocarotid bruitsHeart: S1, S2 No cardiomegaly or thrills; regular rate and rhythm, no murmuror gallopLungs: Clear to auscultation with no rales or wheezesAbdomen: Bowel sounds normal, no tenderness, organomegaly, massesBack: Spine normal without deformity or tenderness, no CVA tendernessExtremities: No edema. No amputations or deformities, cyanosis, peripheralpulses intact equal bilaterally. No varicose veins visibleMusculoskeletal: gait not tested. No misalignment, asymmetry, crepitation,defects, tendernessNeurologic: CN 2-12 normal. Strength equal and grossly intact. No focaldeficitsDiagnosis, Assessment PlanFree Text DxA P NotesFree Text DxA P Notes:Impression and planThis 59-year-old male patient that presents to the emergency department forchest pain, AFib RVR, NSTEMI. Troponin peak 736, most recent 126. Patient withknown alcohol abuse, recently treated for DTs, somnolent due to Ativan.Sleeping comfortably in bed, snoring. Unable to obtain history from patient,information obtained via medical records.NSTEMI-Troponin peak 736 now 126-SPECT imaging finding fixed lateral defect, no reversible [id number] in a couple days with the patient's status is improvedAFib-Unable to find documentation of AFib-Currently sinus rhythm on telemetry-Continue sotalolCoronary artery disease-History of three-vessel bypass 11/2023 and [place]-Continue Imdur and PlavixHypertension-Not well controlled-Increase losartan to 50 twice a day- Continue to monitor per per protocolDyslipidemia-Continue Lipitor 40Patient also has a history of CVA, seizure and alcohol abusePatient seen and examined, discussed with Dr Mccabe.ASIA MCCABE 08/28/24 1744:Diagnosis, Assessment PlanFree Text DxA P NotesFree Text DxA P Notes:Patient seen/examinedagree with above at 1610 at 1744RPT#:[id number] OF REPORT Dixon Parsons MD- 025 [facility])Hospitalist Progress NoteREPORT#:[id number] REPORT STATUS: SignedDATE:08/28/24 TIME: 0743PATIENT: RAMAN BERNAL UNIT #: [id number]#: [id number] [facility]AGE: 59 SEX: M ATTEND: Hayden Mares MDADM AUTHOR: Therese Ortiz MD R1REP SRV REP SRV TM: 0743* ALL edits or amendments must be made on the electronic/computer document *Therese Ortiz 08/28/24 0743:SubjectiveChief complaint:Headache, shortness of breath, palpitations chest tightnessHPI:Patient seen and examined on bedside. Patient and nurse deny any acute overnightevents. Patient was started on heparin drip and nitro paste. Pain has increasedovernight.ObjectiveGeneralVS/I O:Vital Signs: Date Time Temp Pulse Resp B/P B/P Pulse O2 O2 Flow FiO2 Mean Ox Delivery Rate 08/28 1133 36.9 80 14 107/64 78.1 96 Room air 08/28 1059 83 99/59 72.5 08/28 1037 36.4 77 14 79/40 53.0 96 Room air 08/28 0816 107 197/130 08/28 0815 107 197/130 08/28 0814 107 197/130 08/28 0726 98 Room air 08/28 0719 37.1 107 14 197/130 152.2 95 Room air 08/28 0706 107 197/130 08/28 0606 100 184/119 08/28 0554 36.7 100 16 184/119 140.5 96 08/28 0513 92 179/98 08/27 2347 92 179/98 08/27 2342 36.3 92 16 179/98 125.1 97 08/27 2112 102 154/95 08/27 1938 36.6 102 16 154/95 114.4 97 08/27 1806 99 161/89 08/27 1510 36.6 99 17 161/89 113.2 97 Room air24 hour I O ending at 0700: 08/28 0700 08/27 1900 Intake Total 580 Output Total 200 Balance 380 Intake, Oral 580 Number 2 Incontinent Voids Number Voids 3 Output, Urine 200 Patient 81.4 kg Weight Weight Bed scale Measurement MethodPATIENT WEIGHT:Weight (lb): 179Weight (oz): 7.3Weight (kg): 81.400Temperature maximum: 37.1Medications:Active Meds + DC'd Last 24 HrsSodium Chloride (SODIUM CHLORIDE 0.9% 1000 ML SOLN) 1,000 ML BOLUS ONE IV (DC)Amlodipine Besylate (NORVASC 5 MG TABLET) 5 MG DAILY PO (DC)Amlodipine Besylate (NORVASC 5 MG TABLET) 10 MG DAILY POIsosorbide Mononitrate (IMDUR 30MG TABLET SA) 30 MG BID POLosartan Potassium (COZAAR 50 MG TABLET) 100 MG DAILY PO (DC)Losartan Potassium (COZAAR 50 MG TABLET) 50 MG DAILY POMetoprolol Succinate (TOPROL XL 50 MG TABLET SA) 50 MG DAILY PO (CAN)Apixaban (ELIQUIS 5 MG TABLET) 5 MG BID PO (CAN)Budesonide (PULMICORT 0.5MG SUSPENSION) 0.5 MG RTBID INHAminophylline (AMINOPHYLLINE 500 MG/20 ML VIAL) 100 MG PROCEDURE IV (CKD)Regadenoson (LEXISCAN 0.4 MG/5 ML) 0.4 MG PROCEDURE IVSodium Chloride (NORMAL SALINE LOCK/FLUSH) 5 ML PROCEDURE FLUSHSodium Chloride (SODIUM CHLORIDE 0.9% SOLN 250 ML) 250 ML PROCEDURE IVAtorvastatin Calcium (LIPITOR 40MG TABLET) 40 MG BEDTIME POTrazodone HCl (traZODone 50 MG TABLET) 50 MG BEDTIME PO (DC)Nitroglycerin (NITRO-BID 2% OINTMENT) 1 IN Q6HR TOPICAL (CKD)Magnesium Oxide (MAG-OX 400 MG TABLET) 400 MG Q4H PRN PRN POMagnesium Sulfate (MAGNESIUM SULFATE 4 G/100 ML BAG) 100 ML ASDIR PRN IVPotassium Bicarbonate/Citric Acid (EFFER-K 10 MEQ TAB.EFF FOR ORAL SOLUTION)20 MEQ Q2H PRN PRN FEED-TUBEPotassium Chloride (K-DUR 20 MEQ TABLET SA) 20 MEQ Q2H PRN PRN POPotassium Chloride/Water (POTASSIUM CL 10MEQ/100 ML JEANIE) 100 ML Q2H PRN PRN IVSotalol HCl (BETAPACE 80 MG TABLET) 80 MG Q12HR POIsosorbide Mononitrate (IMDUR 30MG TABLET SA) 30 MG DAILY PO (DC)Heparin Sodium (Porcine) (HEPARIN SODIUM 5,000 UNITS/ML VIAL) 2,000 UNITSASDIR PRN IV (DC)Heparin Sodium (Porcine) (HEPARIN SODIUM 5,000 UNITS/ML VIAL) 4,000 UNITSASDIR PRN IV (DC)Heparin Sodium/Sodium Chloride (Heparin 25,000 Units/0.45% NACL 500 ML) 500 ML ASDIR IV (DC)Miscellaneous Medication (NO IM MEDICATIONS) 1 EACH ASDIR MISC (DC)Clopidogrel Bisulfate (PLAVIX 75 MG TAB) 75 MG DAILY POFolic Acid (FOLIC ACID 1MG TABLET) 1 MG DAILY POLevetiracetam (KEPPRA 500 MG TABLET) 500 MG BID POLidocaine (LIDOCAINE 4% PATCH) 1 PATCH DAILY TRANSDERMLosartan Potassium (COZAAR 50 MG TABLET) 50 MG DAILY PO (DC)Sodium Chloride (NORMAL SALINE LOCK/FLUSH) 10 ML Q12HR IVThiamine HCl (VITAMIN B1 100MG TABLET) 100 MG DAILY POInsulin Human Regular (HUMULIN R 100 UNITS/ML VIAL) AGGRESSIVE SLIDING SCALE 61-150 MG/DL, 0 UNITS 151-200 MG/DL, 2 UNITS 201-250 MG/DL, 4 UNITS 251- 300 MG/DL, 6 UNITS 301-350 MG/DL, 8 UNITS 351-399 MG/DL, 10 UNITS >= 400 MG/DL, 12 UNITS AND CALL RESULTS TO PHYSICIAN AC HS SUBQSodium Chloride (NORMAL SALINE LOCK/FLUSH) 10 ML ASDIR PRN IVChlordiazepoxide HCl (LIBRIUM 5 MG CAP) 10 MG TID POClonidine HCl (CATAPRES 0.1 MG TABLET) 0.1 MG DAILY PRN PO (DC)Morphine Sulfate (morphine SULFATE 2 MG/ML INJ (FK)) 2 MG Q2H PRN PRN IVOndansetron HCl (ZOFRAN ODT 4 MG) 4 MG Q4H PRN PRN PODextrose (GLUCOSE 4 GM TABLET) 16 GM ASDIR PRN PODextrose/Water (DEXTROSE 50%/WATER 50 ML ABBOJECT) If patient unable toswallow and has IV access * blood sugar 60- 69 mg/dl- hold insulin and administer 15 mL (7.5 grams); * Blood sugar 50-59 mg/dl- hold insulin and administer 20 mL (10 grams); * Blood sugar 30-49 mg/dl- hold insulin and administer 25 mL (12.5 grams); * Blood sugar < 30 mg/dl- hold insulin and administer 30 mL (15 grams) recheck in 15 minutes and notify physician for further instruction ASDIR PRN IVNitroglycerin (NITROSTAT 0.4 MG TABLET SL) 0.4 MG Q5M PRN PRN SLLorazepam (ATIVAN 2 MG/1 ML VIAL) 2 MG Q1H PRN PRN IVLorazepam (ATIVAN 2 MG/1 ML VIAL) 4 MG Q1H PRN PRN IV (DC)ResultsFindings/Data:Laboratory Tests 08/28 08/28 08/27 08/27 0553 0534 1937 1511 Chemistry Sodium (136 - 145 mmol/L) 138 Potassium (3.5 - 5.1 mmol/L) 4.0 Chloride (98 - 107 mmol/L) 106 Carbon Dioxide (20 - 31 mmol/L) 23 Anion Gap (7 - 16 mmol/L) 9 BUN (9 - 23 mg/dL) 12 Creatinine (0.7 - 1.3 mg/dL) 0.9 Est GFR (CKD-EPI 2020) (>90.0) > 90 BUN/Creatinine Ratio (4 - 33) 13 Glucose (57 - 106 mg/dL) 177 H POC Glucose (70 - 110 mg/dl) 213 H 126 H 303 H Calcium (8.7 - 10.4 mg/dL) 8.8 Magnesium (1.6 - 2.6 mg/dL) 1.5 LLaboratory Tests 08/28 08/27 0534 1435 Coagulation PT (10.0 - 12.8 Seconds) 12.1 INR (0.8 - 1.1) 1.1 APTT (25 - 38 Seconds) 31 72 CHLaboratory Tests 08/28 0725 Hematology WBC (4.0 - 10.5 10 3/uL) 5.2 RBC (4.63 - 6.08 10 6/uL) 4.44 L Hgb (13.7 - 17.5 g/dL) 14.3 Hct (40.1 - 51.0 %) 42.5 MCV (79.0 - 92.2 fL) 95.7 H MCH (25.7 - 32.2 pg) 32.2 MCHC (32.3 - 36.5 g/dL) 33.6 RDW (11.6 - 14.4 %) 13.8 Plt Count (150 - 400 10 3/uL) 105 LFree Text Obj NotesFree Text Obj Notes:General appearance: alert, awake, oriented, no acute distress, pleasant,conversationalHead/Eyes: EOMI, normocephalic, PERRLENT: moist mucosal membrane, normal dentition, normal pharynxNeck: full range of motion, non- tender, no JVDCardiovascular: normal S1, S2, no murmur/gallops/rubsRespiratory: Symmetrical chest rise, no tracheal deviation, no accessory muscleuse, crackles are appreciated in lower lung bowman bilaterallyAbdomen: soft, non-tender, normal bowel sounds, no distention, no guardingGenitourinary: no flank pain, no foleyExtremities: moves all, normal capillary refill, no edemaMusculoskeletal: normal inspection, painless range of motionNeuro/AGRICULTURE MANAGER: alert, oriented x3, CN II to XII intact, Motor: Power 5/5 in B/Lupper and lower extremities, Coordination: Intact finger to nose test in B/L UEand heel to hatch test in B/L LE, Reflex: 2+ in Biceps and patellar tendon,Sensations intact, Gait unassesed.Skin: dry, intactPsychiatry: normal affect, normal judgment/insight, normal moodDiagnosis, Assessment PlanFree Text DxA P NotesFree text DxA P notes:This is a 59-year-old male with past medical history of coronary artery diseaseand CABG in 2023, alcohol use disorder, diabetes mellitus type 2 with neuropathy, history of stroke and seizure on Keppra who presents due to headache shortnessof breath chest tightness. Prior to admission with EMS patient was found to bein AFib RVR with heart rate 190 converted back to normal sinus after bolus ofCardizem. Upon admission temperature 98.9 HR 91 RR 18 BP 1 19/61 saturating 97% on room air. WBC 5.7 HB 15.5 potassium 3.0 bicarb 26 BUN 9 creatinine 1.2 GFR69.2 glucose 413 troponin 57 TSH 0.8 alcohol level 298 AST 52 ALT 53 [id number]. Patient is admitted in stable condition for new onset atrial fibrillationwith RVR.Assessment and plan:New onset atrial fibrillation with RVR-currently normal sinus rhythm ratecontrolledChads Vasc score 5 HASBLED 3-History of coronary artery disease and CABG in 2023, alcohol use disorderhistory of stroke and TIA. Patient continues to be current everyday drinker andsmoker. Denies history of major bleeding.-Potassium 3.0 TSH 0.8 Alcohol level 298-Keep potassium above 4 and magnesium above 2-Stress test by cardiology: Suggestive of old infarct vs diaphragmaticattnuation. No signifcant ischemia is noted, Ejection fraction is 38%.-ECHO: EF 55-60% with grade I diastolic dysfunction-Continue diltiazem 60 mg t.i.d. for maintenance rate controlNSTEMI- We will start Plavix 75 mg daily during this admission since patient is lessthan 1 year out from CABG not on any antiplatelets currently. Continue Xhtkkaz97 mg daily.-Starting Nitro paste 1inch q6hrs, Imdur 30mg daily. Continue Aspirin, plavix,sotalol, Imdur and losartan-Stress test by cardiology: Suggestive of old infarct vs diaphragmaticattnuation. No signifcant ischemia is noted, Ejection fraction is 38%.-Cardiology on board, f/u recommendationsCoronary artery disease with CABG in 11/2023-Patient had procedure done in [place], unsure of echocardiogram results. Patient no longer takes Plavix or aspirin only takes Lipitor 40 mg.-Request records from [facility]-We will start Plavix 75 mg daily during this admission since patient is lessthan 1 year out from CABG not on any antiplatelets currently. Continue Cmcwirg16 mg daily.Lateral right 7th rib fracture-Denies pain or recent coughing episodes at this time, incidental finding on CTAchest-Lidocaine patch if needed.Colitis-Denies diarrhea, recent GI symptoms, incidental finding on imaging. Continueto monitorEnlarged prostate with distended urinary bladder-Denies incontinence, urinary dribbling, dysuria endorses nocturia 2-3 times atnight. Denies history of prostate cancer-CT abdomen pelvis reveals distended bladder with enlarged prostate andrecommend correlation with PSA level. 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 at home.-Blood glucose on admission 413-10 units lispro given on admission-Adjust regimen based on sliding scale insulin requirementsChronic Alcohol use dependency, acute intoxication-Patient states he drinks 64 oz of hard lemonade daily. Has been drinker sinceadolescence. States he used to be dependent narcotics and replaced with alcohol. Denies history of cirrhosis.-On admission AST 52 ALT 53 alk-phos 175-Abdomen pelvis CT reveals hepatic steatosis-CIWA protocol in place with Librium 10 mg p.o. t.i.d., thiamine, folateHistory of seizure and stroke-Patient has history of stroke and seizure during same hospitalization roughly 11/2 years ago. Patient was started on Keppra 500 mg b.i.d. at that time reportsno subsequent episodes of seizure activity.-Continue Keppra 500 mg b.i.d.Essential hypertensionBlood pressure on admission 114/61, continue Cozaar 50 mg daily and clonidine0.1 mg p.r.n. for SBP greater than 180InsomniaContinue trazodone 50 mg dailyVTE: Lovenox 40mg dailyFEN:PO hydrationHypokalemia, hypomagnesemia, repletingHeart healthy dietDisposition:- Stress test by cardiology: Suggestive of old infarct vs diaphragmaticattnuation. No signifcant ischemia is noted, Ejection fraction is 38%.-Cardiology on board, f/u recommendationsPatient seen, examined and discussed with Dr. Mares, attending physician.HAYDEN MARES MD 08/29/24 0733:Diagnosis, Assessment PlanAdditional comments:MR s history reviewed. The patient was interviewed and examined by me. I agreewith the assessment and care plan and confirm the diagnosis(es) above. at 1318 at 0736RPT#:[id number] OF REPORT Dixon Parsons MD- 025 [facility]Hospitalist Progress NoteREPORT#:[id number] REPORT STATUS: SignedDATE:08/27/24 TIME: 0659PATIENT: RAMAN BERNAL UNIT #: [id number]#: [id number] [facility]AGE: 59 SEX: M ATTEND: Hayden Mares MDADM AUTHOR: Therese Ortiz MD R1REP SRV REP SRV TM: 0659* ALL edits or amendments must be made on the electronic/computer document *Therese Ortiz 08/27/24 0659:SubjectiveChief complaint:Headache, shortness of breath, palpitations chest tightnessHPI:Patient seen and examined on bedside. Patient and nurse deny any acute overnightevents. Patient was started on heparin drip and nitro paste. Pain has remainedat 5/10 and still at same rate. Will continue to f/u with cardiology. Patient linda taken for stress test later today, will f/u results.ObjectiveGeneralVS/I O:Vital Signs: Date Time Temp Pulse Resp B/P B/P Pulse O2 O2 Flow FiO2 Mean Ox Delivery Rate 08/27 1206 86 146/83 08/27 0741 36.5 86 18 146/83 103.7 97 Nasal cannula 08/27 0559 82 137/85 08/27 0357 36.6 82 17 137/85 102.7 95 Room air 08/27 0034 89 130/76 08/26 2322 36.4 89 17 130/76 94.3 97 Room air 08/26 2056 82 132/71 08/26 1938 36.8 82 17 132/71 91.4 96 Room air 08/26 1615 84 135/70 06 1601 36.7 84 18 135/70 91.7 93 Room air24 hour I O ending at 0700: 08/27 0700 08/26 1900 Intake Total 2760.00 Output Total 200 Balance 2560.00 Intake, IV 2000.00 Intake, Oral 760 Number Voids 2 Output, Urine 200 Patient 83.04 kg WeightPATIENT WEIGHT:Weight (lb): 183Weight (oz): 1.15Weight (kg): 83.040Temperature maximum: 36.8Medications:Active Meds + DC'd Last 24 HrsBudesonide (PULMICORT 0.5MG SUSPENSION) 0.5 MG RTBID INHIpratropium Tyler (ATROVENT 0.5 MG NEB) 0.5 MG ONCE ONE INH (DC)Aminophylline (AMINOPHYLLINE 500 MG/20 ML VIAL) 100 MG PROCEDURE IV (CKD)Regadenoson (LEXISCAN 0.4 MG/5 ML) 0.4 MG PROCEDURE IVSodium Chloride (NORMAL SALINE LOCK/FLUSH) 5 ML PROCEDURE FLUSHSodium Chloride (SODIUM CHLORIDE 0.9% SOLN 250 ML) 250 ML PROCEDURE IVIpratropium Tyler (ATROVENT 0.5 MG NEB) 0.5 MG ONCE ONE INH (DC)Budesonide (PULMICORT 0.25MG SUSPENSION) 0.25 MG ONCE ONE INH (DC)Atorvastatin Calcium (LIPITOR 40MG TABLET) 40 MG BEDTIME POTrazodone HCl (traZODone 50 MG TABLET) 50 MG BEDTIME PONitroglycerin (NITRO-BID 2% OINTMENT) 1 IN Q6HR TOPICAL (CKD)Magnesium Oxide (MAG-OX 400 MG TABLET) 400 MG Q4H PRN PRN POMagnesium Sulfate (MAGNESIUM SULFATE 4 G/100 ML BAG) 100 ML ASDIR PRN IVPotassium Bicarbonate/Citric Acid (EFFER-K 10 MEQ TAB.EFF FOR ORAL SOLUTION)20 MEQ Q2H PRN PRN FEED-TUBEPotassium Chloride (K-DUR 20 MEQ TABLET SA) 20 MEQ Q2H PRN PRN POPotassium Chloride/Water (POTASSIUM CL 10MEQ/100 ML JEANIE) 100 ML Q2H PRN PRN IVSotalol HCl (BETAPACE 80 MG TABLET) 80 MG Q12HR POIsosorbide Mononitrate (IMDUR 30MG TABLET SA) 30 MG DAILY POHeparin Sodium (Porcine) (HEPARIN SODIUM 5,000 UNITS/ML VIAL) 2,000 UNITSASDIR PRN IVHeparin Sodium (Porcine) (HEPARIN SODIUM 5,000 UNITS/ML VIAL) 4,000 UNITSASDIR PRN IVHeparin Sodium/Sodium Chloride (Heparin 25,000 Units/0.45% NACL 500 ML) 500 ML ASDIR IVMiscellaneous Medication (NO IM MEDICATIONS) 1 EACH ASDIR MISCClopidogrel Bisulfate (PLAVIX 75 MG TAB) 75 MG DAILY POFolic Acid (FOLIC ACID 1MG TABLET) 1 MG DAILY POLevetiracetam (KEPPRA 500 MG TABLET) 500 MG BID POLidocaine (LIDOCAINE 4% PATCH) 1 PATCH DAILY TRANSDERMLosartan Potassium (COZAAR 50 MG TABLET) 50 MG DAILY POSodium Chloride (NORMAL SALINE LOCK/FLUSH) 10 ML Q12HR IVThiamine HCl (VITAMIN B1 100MG TABLET) 100 MG DAILY POInsulin Human Regular (HUMULIN R 100 UNITS/ML VIAL) AGGRESSIVE SLIDING SCALE 61-150 MG/DL, 0 UNITS 151-200 MG/DL, 2 UNITS 201-250 MG/DL, 4 UNITS 251-300 MG/DL, 6 UNITS 301-350 MG/DL, 8 UNITS 351-399 MG/DL, 10 UNITS >= 400 MG/DL, 12 UNITS AND CALL RESULTS TO PHYSICIAN AC HS SUBQSodium Chloride (NORMAL SALINE LOCK/FLUSH) 10 ML ASDIR PRN IVChlordiazepoxide HCl (LIBRIUM 5 MG CAP) 10 MG TID POClonidine HCl (CATAPRES 0.1 MG TABLET) 0.1 MG DAILY PRN POMorphine Sulfate (morphine SULFATE 2 MG/ML INJ (FK)) 2 MG Q2H PRN PRN IVOndansetron HCl (ZOFRAN ODT 4 MG) 4 MG Q4H PRN PRN PODextrose (GLUCOSE 4 GM TABLET) 16 GM ASDIR PRN PODextrose/Water (DEXTROSE 50%/WATER 50 ML ABBOJECT) If patient unable toswallow and has IV access * blood sugar 60-69 mg/dl- hold insulin and administer 15 mL (7.5 grams); * Blood sugar 50-59 mg/dl- hold insulin and administer 20 mL (10 grams); * Blood sugar 30-49 mg/dl- hold insulin and administer 25 mL (12.5 grams); * Blood sugar < 30 mg/dl- hold insulin and administer 30 mL (15 grams) recheck in 15 minutes and notify physician for further instruction ASDIR PRN IVNitroglycerin (NITROSTAT 0.4 MG TABLET SL) 0.4 MG Q5M PRN PRN SLLorazepam (ATIVAN 2 MG/1 ML VIAL) 2 MG Q1H PRN PRN IVLorazepam (ATIVAN 2 MG/1 ML VIAL) 4 MG Q1H PRN PRN IVIopamidol (ISOVUE-370 MULTIPACK) 75 ML PROCEDURE IV (DC)ResultsFindings/Data:Laboratory Tests 08/27 08/27 08/27 08/26 08/26 0542 0433 0141 1941 1557 Chemistry Sodium (136 - 145 mmol/L) 143 Potassium (3.5 - 5.1 mmol/L) 3.5 Chloride (98 - 107 mmol/L) 110 H Carbon Dioxide (20 - 31 mmol/L) 26 Anion Gap (7 - 16 mmol/L) 7 BUN (9 - 23 mg/dL) 14 Creatinine (0.7 - 1.3 mg/dL) 0.9 Est GFR (CKD-EPI 2020) (>90.0) > 90 BUN/Creatinine Ratio (4 - 33) 15 Glucose (57 - 106 mg/dL) 91 POC Glucose (70 - 110 mg/dl) 131 H 258 H 159 H Calcium (8.7 - 10.4 mg/dL) 7.8 L Magnesium (1.6 - 2.6 mg/dL) 1.4 L Troponin I High Sens (<54 ng/L) 126 CHLaboratory Tests 08/27 08/27 08/26 0746 0141 1629 Coagulation APTT (25 - 38 Seconds) 76 CH 68 CH > 200 CHLaboratory Tests 08/27 08/27 1229 0141 Hematology WBC (4.0 - 10.5 10 3/uL) 6.0 RBC (4.63 - 6.08 10 6/uL) 3.78 L Hgb (13.7 - 17.5 g/dL) 11.8 L Hct (40.1 - 51.0 %) 35.9 L MCV (79.0 - 92.2 fL) 95.0 H MCH (25.7 - 32.2 pg) 31.2 MCHC (32.3 - 36.5 g/dL) 32.9 RDW (11.6 - 14.4 %) 14.2 Plt Count (150 - 400 10 3/uL) 93 L 95 LFree Text Obj NotesFree Text Obj Notes:General appearance: alert, awake, oriented, no acute distress, pleasant,conversationalHead/Eyes: EOMI, normocephalic, PERRLENT: moist mucosal membrane, normal dentition, normal pharynxNeck: full range of motion, non-tender, no JVDCardiovascular: normal S1, S2, no murmur/gallops/rubsRespiratory: Symmetrical chest rise, no tracheal deviation, no accessory muscleuse, crackles are appreciated in lower lung bowman bilaterallyAbdomen: soft, non-tender, normal bowel sounds, no distention, no guardingGenitourinary: no flank pain, no foleyExtremities: moves all, normal capillary refill, no edemaMusculoskeletal: normal inspection, painless range of motionNeuro/AGRICULTURE MANAGER: alert, oriented x3, CN II to XII intact, Motor: Power 5/5 in B/Lupper and lower extremities, Coordination: Intact finger to nose test in B/L UEand heel to hatch test in B/L LE, Reflex: 2+ in Biceps and patellar tendon,Sensations intact, Gait unassesed.Skin: dry, intactPsychiatry: normal affect, normal judgment/insight, normal moodDiagnosis, Assessment PlanFree Text DxA P NotesFree text DxA P notes:This is a 59-year-old male with past medical history of coronary artery diseaseand CABG in 2023, alcohol use disorder, diabetes mellitus type 2 with neuropathy, history of stroke and seizure on Keppra who presents due to headache shortnessof breath chest tightness. Prior to admission with EMS patient was found to bein AFib RVR with heart rate 190 converted back to normal sinus after bolus ofCardizem. Upon admission temperature 98.9 HR 91 RR 18 BP 1 19/61 saturating 97% on room air. WBC 5.7 HB 15.5 potassium 3.0 bicarb 26 BUN 9 creatinine 1.2 GFR69.2 glucose 413 troponin 57 TSH 0.8 alcohol level 298 AST 52 ALT 53 [id number]. Patient is admitted in stable condition for new onset atrial fibrillationwith RVR.Assessment and plan:New onset atrial fibrillation with RVR-currently normal sinus rhythm ratecontrolledChads Vasc score 5 HASBLED 3-History of coronary artery disease and CABG in 2023, alcohol use disorderhistory of stroke and TIA. Patient continues to be current everyday drinker andsmoker. Denies history of major bleeding.-Potassium 3.0 TSH 0.8 Alcohol level 298-Keep potassium above 4 and magnesium above 2-Stress test by cardiology: Suggestive of old infarct vs diaphragmaticattnuation. No signifcant ischemia is noted, Ejection fraction is 38%.-ECHO: EF 55-60% with grade I diastolic dysfunction-Continue diltiazem 60 mg t.i.d. for maintenance rate controlNSTEMI- We will start Plavix 75 mg daily during this admission since patient is lessthan 1 year out from CABG not on any antiplatelets currently. Continue Joeaclq15 mg daily.-Starting Nitro paste 1inch q6hrs, Imdur 30mg daily-Stress test by cardiology: Suggestive of old infarct vs diaphragmaticattnuation. No signifcant ischemia is noted, Ejection fraction is 38%.-Cardiology on board, f/u recommendationsCoronary artery disease with CABG in 11/2023-Patient had procedure done in [place], unsure of echocardiogram results. Patient no longer takes Plavix or aspirin only takes Lipitor 40 mg.-Request records from [facility]-We will start Plavix 75 mg daily during this admission since patient is lessthan 1 year out from CABG not on any antiplatelets currently. Continue Hclekfx14 mg daily.Lateral right 7th rib fracture-Denies pain or recent coughing episodes at this time, incidental finding on CTAchest-Lidocaine patch if needed.Colitis-Denies diarrhea, recent GI symptoms, incidental finding on imaging. Continueto monitorEnlarged prostate with distended urinary bladder-Denies incontinence, urinary dribbling, dysuria endorses nocturia 2-3 times atnight. Denies history of prostate cancer-CT abdomen pelvis reveals distended bladder with enlarged prostate andrecommend correlation with PSA level. 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 at home.- Blood glucose on admission 413-10 units lispro given on admission-Adjust regimen based on sliding scale insulin requirementsChronic Alcohol use dependency, acute intoxication-Patient states he drinks 64 oz of hard lemonade daily. Has been drinker sinceadolescence. States he used to be dependent narcotics and replaced with alcohol. Denies history of cirrhosis.-On admission AST 52 ALT 53 alk-phos 175-Abdomen pelvis CT reveals hepatic steatosis-CIWA protocol in place with Librium 10 mg p.o. t.i.d., thiamine, folateHistory of seizure and stroke-Patient has history of stroke and seizure during same hospitalization roughly 11/2 years ago. Patient was started on Keppra 500 mg b.i.d. at that time reportsno subsequent episodes of seizure activity.-Continue Keppra 500 mg b.i.d.Essential hypertensionBlood pressure on admission 114/61, continue Cozaar 50 mg daily and clonidine0.1 mg p.r.n. for SBP greater than 180InsomniaContinue trazodone 50 mg dailyVTE: Lovenox 40mg dailyFEN:PO hydrationHypokalemia, hypomagnesemia, repletingHeart healthy dietDisposition:- Stress test by cardiology: Suggestive of old infarct vs diaphragmaticattnuation. No signifcant ischemia is noted, Ejection fraction is 38%.-Cardiology on board, f/u recommendationsPatient seen, examined and discussed with Dr. Mares, attending physician andDr. Ramos ([email or web address])HAYDEN MARES MD 08/27/24 1521:Diagnosis, Assessment PlanAdditional comments:MR s history reviewed. The patient was interviewed and examined by me. I agreewith the assessment and care plan and confirm the diagnosis(es) above. at 1446 at 1524RPT#:[id number] OF REPORT Arnulfo Spain MD-2024 [facility] ([facility])Cardiology ConsultationREPORT#:[id number] REPORT STATUS: SignedDATE:08/27/24 TIME: 0420PATIENT: RAMAN BERNAL UNIT #: [id number]#: [id number] ROOM[facility]BED: [facility]-ADOB: [birth year]AGE: 59 SEX: M ATTEND: Hayden Mares MDADM AUTHOR: John Arredondo MDREP SRV REP SRV TM: 1400* ALL edits or amendments must be made on the electronic/computer document *History of Present IllnessHPIReason for consult:Chest pain, NSTEMIChief complaint:Chest pain back pain like painPCP:PCP: Undefined ProviderHPI:Mr. Raman Bernal is a 59-year-old male with past medical history of CAD s/p3v CABG 12/10 [place], HTN, HLD, CVA, seizure disorder, alcohol abuse [facility]. He reports he has been feeling headachechest pain chest tightness dyspnea started acutely and would be intermittent.He noted pain was severe. He felt similar to his [place] prior to his CABG. He alsonoted back pain and leg pain with neuropathy. Given his acute worseningsymptoms he talked medical attention. Per EMS he was in AFib with RVR heartrate 190s. He was given diltiazem cream for normal sinus rhythm. In the ERheart rate 91, blood pressure 131/76. Lab work notable for troponin 57,magnesium 1.7, potassium 3.0. He was a daily heavy drinker. His chest pain hasimproved nearly resolved with rhythm correction. He was admitted for furtherworkup. Cardiology consulted for evaluation. Currently he feels fatigueoverall with back pain for about dual pain and leg pain.History - Adult longitudinalPast medical history:Reports: Alcoholism/subst abuse, Coronary artery disease, Diabetes mellitus,Hypertension, Seizure disorder, Transient ischemic attack. Denies: COPD,Bleeding disorder.Past surgical history:Reports: CABG.Alcohol use: Alcohol useSmoking status for patients 13 years old or older: Current every day smokerAllergies:Coded Allergies:No Known Allergies (08/26/24)Review of SystemsFree Text ROS NotesFree Text ROS Notes:General: +fatigue + weakness, negative chills, negative fever, negative nightsweatsHEENT: Negative visual changes, negative impaired vision, negative tinnitus,negative vertigo, negative sore throat.Heart: + chest pain, negative dyspnea on exertion, negative palpitations,negative edemaLungs:+ dyspnea, no cough, no orthopnea, no PND, no wheezing, no productiveGI: Negative dysphagia, negative nausea, negative vomiting, negative hematemesis, negative abdominal pain.: Negative frequency, negative urgency, negative dysuria, negativeincontinence.MSK: Negative myalgia, negative joint pain, negative stiffness, negativeweakness, negative back pain.Psych: No depression, No anxiety, No SI/HIEndocrine: no heat intolerance, no cold intolerance, no weight changesSkin: Negative rash, negative jaundice.Heme: Negative bleeding, negative bruisability.Neuro: Negative headaches, negative syncope, negative seizures, + weakness,negative tremorObjectiveGeneralVS/I O:Vital Signs: Date Time Temp Pulse Resp B/P B/P Pulse O2 O2 Flow FiO2 Mean Ox Delivery Rate 08/27 0357 97.9 82 17 137/85 102.7 95 Room air 08/27 0034 89 130/76 08/26 2322 97.5 89 17 130/76 94.3 97 Room air 08/26 2056 82 132/71 08/26 1938 98.2 82 17 132/71 91.4 96 Room air 08/26 1615 84 135/70 08/26 1601 98.1 84 18 135/70 91.7 93 Room air 08/26 1344 91 135/72 08/26 1102 97.7 91 18 135/72 93.2 95 Room air 08/26 1046 92 137/72 08/26 0833 92 137/72 08/26 0832 98.2 92 20 137/72 93.3 93 Room air 08/26 0548 92 129/6024 hour I O ending at 0700: 11 0700 08/26 1900 Intake Total 2760.00 Output Total 200 Balance 2560.00 Intake, IV 2000.00 Intake, Oral 760 Output, Urine 200 Patient 183 lb WeightPATIENT WEIGHT:Weight (lb): 183Weight (oz): 1.15Weight (kg): 83.040Medications:Active Meds + DC'd Last 24 HrsAminophylline (AMINOPHYLLINE 500 MG/20 ML VIAL) 100 MG PROCEDURE IV (CKD)Regadenoson (LEXISCAN 0.4 MG/5 ML) 0.4 MG PROCEDURE IVSodium Chloride (NORMAL SALINE LOCK/FLUSH) 5 ML PROCEDURE FLUSHSodium Chloride (SODIUM CHLORIDE 0.9% SOLN 250 ML) 250 ML PROCEDURE IVIpratropium Tyler (ATROVENT 0.5 MG NEB) 0.5 MG ONCE ONE INH (DC)Budesonide (PULMICORT 0.25MG SUSPENSION) 0.25 MG ONCE ONE INH (DC)Atorvastatin Calcium (LIPITOR 40MG TABLET) 40 MG BEDTIME POTrazodone HCl (traZODone 50 MG TABLET) 50 MG BEDTIME PONitroglycerin (NITRO-BID 2% OINTMENT) 1 IN Q6HR TOPICAL (CKD)Magnesium Oxide (MAG-OX 400 MG TABLET) 400 MG Q4H PRN PRN POMagnesium Sulfate (MAGNESIUM SULFATE 4 G/100 ML BAG) 100 ML ASDIR PRN IVPotassium Bicarbonate/Citric Acid (EFFER-K 10 MEQ TAB.EFF FOR ORAL SOLUTION)20 MEQ Q2H PRN PRN FEED- TUBEPotassium Chloride (K-DUR 20 MEQ TABLET SA) 20 MEQ Q2H PRN PRN POPotassium Chloride/Water (POTASSIUM CL 10MEQ/100 ML JEANIE) 100 ML Q2H PRN PRN IVSotalol HCl (BETAPACE 80 MG TABLET) 80 MG Q12HR POMagnesium (initiate MAGNESIUM REPLACEMENT) 1 DOSE ASDIR MISC (CAN)Potassium Chloride (initiate POTASSIUM REPLACEMENT) 1 DOSE ASDIR MISC (CAN)Sodium Chloride (SODIUM CHLORIDE 0.9% 1000 ML SOLN) 1,000 ML BOLUS ONE IV (DC)Isosorbide Mononitrate (IMDUR 30MG TABLET SA) 30 MG DAILY POMorphine Sulfate (morphine SULFATE 2 MG/ML INJ (FK)) 2 MG ONCE ONE IV (DC)Heparin Sodium (Porcine) (HEPARIN SODIUM 5,000 UNITS/ML VIAL) 4,000 UNITSBOLUS ONE IV (DC)Heparin Sodium (Porcine) (HEPARIN SODIUM 5,000 UNITS/ML VIAL) 2,000 UNITSASDIR PRN IVHeparin Sodium (Porcine) (HEPARIN SODIUM 5,000 UNITS/ML VIAL) 4,000 UNITSASDIR PRN IVHeparin Sodium/Sodium Chloride (Heparin 25,000 Units/0.45% NACL 500 ML) 500 ML ASDIR IVMiscellaneous Medication (NO IM MEDICATIONS) 1 EACH ASDIR MISCApixaban (ELIQUIS 5 MG TABLET) 5 MG BID PO (DC)Clopidogrel Bisulfate (PLAVIX 75 MG TAB) 75 MG DAILY POFolic Acid (FOLIC ACID 1MG TABLET) 1 MG DAILY POLevetiracetam (KEPPRA 500 MG TABLET) 500 MG BID POLidocaine (LIDOCAINE 4% PATCH) 1 PATCH DAILY TRANSDERMLosartan Potassium (COZAAR 50 MG TABLET) 50 MG DAILY POSodium Chloride (NORMAL SALINE LOCK/FLUSH) 10 ML Q12HR IVThiamine HCl (VITAMIN B1 100MG TABLET) 100 MG DAILY POSodium Chloride (SODIUM CHLORIDE 0.9% 1000 ML SOLN) 1,000 ML BOLUS ONE IV (DC)Insulin Human Regular (HUMULIN R 100 UNITS/ML VIAL) AGGRESSIVE SLIDING SCALE 61-150 MG/DL, 0 UNITS 151-200 MG/DL, 2 UNITS 201-250 MG/DL, 4 UNITS 251-300 MG/DL, 6 UNITS 301-350 MG/DL, 8 UNITS 351-399 MG/DL, 10 UNITS >= 400 MG/DL, 12 UNITS AND CALL RESULTS TO PHYSICIAN AC HS SUBQEnoxaparin Sodium (LOVENOX 40 MG/0.4 ML PREFILLED SYRN) 40 MG DAILY@0600SUBQ (CAN)Sodium Chloride (NORMAL SALINE LOCK/FLUSH) 10 ML ASDIR PRN IVDiltiazem HCl (CARDIZEM 60 MG TABLET) 60 MG TID PO (DC)Chlordiazepoxide HCl (LIBRIUM 5 MG CAP) 10 MG TID POClonidine HCl (CATAPRES 0.1 MG TABLET) 0.1 MG DAILY PRN POMorphine Sulfate (morphine SULFATE 2 MG/ML INJ (FK)) 2 MG Q2H PRN PRN IVOndansetron HCl (ZOFRAN ODT 4 MG) 4 MG Q4H PRN PRN PODextrose (GLUCOSE 4 GM TABLET) 16 GM ASDIR PRN PODextrose/Water (DEXTROSE 50%/WATER 50 ML ABBOJECT) If patient unable toswallow and has IV access * blood sugar 60-69 mg/dl- hold insulin and administer 15 mL (7.5 grams); * Blood sugar 50-59 mg/dl- hold insulin and administer 20 mL (10 grams); * Blood sugar 30-49 mg/dl- hold insulin and administer 25 mL (12.5 grams); * Blood sugar < 30 mg/dl- hold insulin and administer 30 mL (15 grams) recheck in 15 minutes and notify physician for further instruction ASDIR PRN IVNitroglycerin (NITROSTAT 0.4 MG TABLET SL) 0.4 MG Q5M PRN PRN SLLorazepam (ATIVAN 2 MG/1 ML VIAL) 2 MG Q1H PRN PRN IVLorazepam (ATIVAN 2 MG/1 ML VIAL) 4 MG Q1H PRN PRN IVMagnesium Sulfate/Dextrose (MAGNESIUM SULFATE 1GM/100ML D5W) 100 ML ONCE ONE IV (DC)Iopamidol (ISOVUE-370 MULTIPACK) 75 ML PROCEDURE IV (DC)ResultsFindings/Data:Laboratory Tests 08/27 08/26 08/26 08/26 08/26 0141 1941 1557 1132 1132 Chemistry Sodium (136 - 145 mmol/L) 143 Potassium (3.5 - 5.1 mmol/L) 3.5 3.7 Chloride (98 - 107 mmol/L) 110 H Carbon Dioxide (20 - 31 mmol/L) 26 Anion Gap (7 - 16 mmol/L) 7 BUN (9 - 23 mg/dL) 14 Creatinine (0.7 - 1.3 mg/dL) 0.9 1.0 Est GFR (CKD-EPI 2020) (>90.0) > 90 BUN/Creatinine Ratio (4 - 33) 15 Glucose (57 - 106 mg/dL) 91 POC Glucose (70 - 110 mg/dl) 258 H 159 H Lactic Acid (0.5 - 2.0 mmol/L) 3.7 H Calcium (8.7 - 10.4 mg/dL) 7.8 L Magnesium (1.6 - 2.6 mg/dL) 1.4 L 1.6 08/26 08/26 08/26 08/26 08/26 1057 1011 0854 0854 0724 Chemistry POC Glucose (70 - 110 mg/dl) 274 H Lactic Acid (0.5 - 2.0 mmol/L) 4.0 CH 4.9 CH 4.5 CH Ammonia (11 - 32 umol/L) 46 H 08/26 08/26 08/26 0551 0521 0521 Chemistry Sodium (136 - 145 mmol/L) 141 Potassium (3.5 - 5.1 mmol/L) 3.6 Chloride (98 - 107 mmol/L) 104 Carbon Dioxide (20 - 31 mmol/L) 25 Anion Gap (7 - 16 mmol/L) 12 BUN (9 - 23 mg/dL) 9 Creatinine (0.7 - 1.3 mg/dL) 1.0 Est GFR (CKD-EPI 2020) (>90.0) 86.2 L BUN/Creatinine Ratio (4 - 33) 9 Glucose (57 - 106 mg/dL) 170 H POC Glucose (70 - 110 mg/dl) 197 H Calcium (8.7 - 10.4 mg/dL) 7.9 L Phosphorus (2.4 - 5.1 mg/dL) 2.7 Magnesium (1.6 - 2.6 mg/dL) 1.7 Total Bilirubin (0.3 - 1.2 mg/dL) 1.0 AST (0 - 34 U/L) 336 H ALT (10 - 49 U/L) 70 H Alkaline Phosphatase (46 - 116 U/L) 203 H Troponin I High Sens (<54 ng/L) 736 CH Total Protein (5.7 - 8.2 g/dL) 5.8 Albumin (3.2 - 4.8 g/dL) 3.5 Globulin (1.4 - 4.8 g/dL) 2.3 Albumin/Globulin Ratio (0.7 - 3.6) 1.5Laboratory Tests 08/27 08/26 08/26 014 1627 2788 Coagulation PT (10.0 - 12.8 Seconds) 14.2 H INR (0.8 - 1.1) 1.3 H APTT (25 - 38 Seconds) 68 CH > 200 CH 28Laboratory Tests 08/27 08/26 0141 0521 Hematology WBC (4.0 - 10.5 10 3/uL) 6.0 6.4 RBC (4.63 - 6.08 10 6/uL) 3.78 L 4.39 L Hgb (13.7 - 17.5 g/dL) 11.8 L 14.1 Hct (40.1 - 51.0 %) 35.9 L 40.7 MCV (79.0 - 92.2 fL) 95.0 H 92.7 H MCH (25.7 - 32.2 pg) 31.2 32.1 MCHC (32.3 - 36.5 g/dL) 32.9 34.6 RDW (11.6 - 14.4 %) 14.2 13.6 Plt Count (150 - 400 10 3/uL) 95 L 128 L MPV (9.4 - 12.4 fL) 10.0 Immature Gran % (0.0 - 0.4 %) 0.3 Neutrophils % (34.0 - 67.9 %) 58.0 Lymphocytes % (21.8 - 53.1 %) 32.8 Monocytes % (5.3 - 12.2 %) 7.0 Eosinophils % (0.8 - 7.0 %) 1.1 Basophils % (0.2 - 1.2 %) 0.8 Nucleated RBC % (0.0 - 0.2 %) 0.0 Immature Gran # (0.00 - 0.03 10 3/uL) 0.02 Neutrophils # (1.78 - 5.38 10 3/uL) 3.74 Lymphocytes # (1.32 - 3.57 10 3/uL) 2.11 Monocytes # (0.30 - 0.82 10 3/uL) 0.45 Eosinophils # (0.04 - 0.54 10 3/uL) 0.07 Basophils # (0.01 - 0.08 10 3/uL) 0.05 Nucleated RBCs # (0.00 - 0.18 10 3/uL) 0.00Laboratory Tests 08/27 08/26 08/26 08/26 0141 1132 0521 0521 Chemistry Magnesium (1.6 - 2.6 mg/dL) 1.4 L 1.6 1.7 Troponin I High Sens (<54 ng/L) 736 CHLaboratory Tests 08/27 08/26 08/26 0141 8691 0952 Coagulation APTT (25 - 38 Seconds) 68 CH > 200 CH 28Results: MRI results reviewedFree Text Obj NotesFree Text Obj Notes:General: fair appearing, in no distress. Oriented x 3,Skin: Good turgor, no rash, unusual bruising or prominent lesionsHEENT: Normocephalic, atraumatic, conjunctiva clear, sclera non-icteric, Mucousmembranes moist, no mucosal lesions.Neck: Supple, without lesions, bruits, or adenopathy, thyroid non-enlarged. Nocarotid bruitsHeart: S1, S2 No cardiomegaly or thrills; regular rate and rhythm, no murmuror gallopLungs: Clear to auscultation with no rales or wheezesAbdomen: Bowel sounds normal, no tenderness, organomegaly, massesBack: Spine normal without deformity or tenderness, no CVA tendernessExtremities: No edema. No amputations or deformities, cyanosis, peripheralpulses intact equal bilaterally. No varicose veins visibleMusculoskeletal: gait not tested. No misalignment, asymmetry, crepitation,defects, tendernessNeurologic: CN 2-12 normal. Strength equal and grossly intact. No focaldeficitsDiagnosis, Assessment PlanFree Text DxA P NotesFree Text DxA P Notes:NSTEMIAFib with RVR currently converted to NSRAtypical anginaCAD status post CABGHLDHTNAbnormal EKGAlcohol abuseHistory of CVAGERDPlanHere with atypical angina in setting of AFib with RVR, documented by EMS heartrate was 91He says [facility] converted to sinus rhythm per EMSModerate tele for AFibHis chest pain improved with correction of rhythm and rateWith his elevated troponin may be secondary to ischemia from his tachycardicburden of arrhythmiaWe can not rule out ACS or graft failureHowever given his improvement of symptoms we will focus on rhythm control 1stDiscussed risks and benefits of heart catheterization and stress testPatient agrees on planwe will do sotalol load for rhythm correction to avoid further AFib burdenWe will do noninvasive stress testing to assess graft patency and rule out largeischemic burdenIf patient has worsening chest pain with troponin rises significantly we canreassess ischemic workup decision and consider heart catheterizationUntil then risk and benefits of heart catheterization appears to be aninequivocalWe will start Imdur to help with treat microvascular disease, atypical anginaand HTNFurther recs pending echo and stress testAlcohol cessation educationmonitor for need of gastritis/GERD workupTreat electrolytes keep potassium greater than 4, magnesium 2; [place]otal[place]ordered [place] [address]33RPT#:[id number] OF REPORT Samantha Lan-10-Aug-2024 [facility] ([facility])Pharmacy Prog.Note-Med RecREPORT#:[id number] REPORT STATUS: SignedDATE:08/26/24 TIME: 721PATIENT: RAMAN BERNAL UNIT #: [id number]#: [id number] [facility]AGE: 59 SEX: M ATTEND: Hayden Mares MDADM AUTHOR: Frida Singh RREP SRV REP SRV TM: 0722* ALL edits or amendments must be made on the electronic/computer document *Frida Singh 08/26/24 0722:Pharmacy Med History ReviewPrimary Care ProviderPCP: PCP: DOMINIK BASILIO [phone] Med History ReviewSource of information: interviewed pt/caregiver, reviewed med claims dataMed Rec report: Twila Chávez 08/26/24 0844:Pharmacy Med History ReviewPharmacy Med History ReviewAdmission Med Rec:Scheduled MedicationsAtorvastatin (Lipitor) 40 MG PO BEDTIME (Reported)CarvediloL (Coreg) 3.125 MG PO BID MEALS (Reported)Cyanocobalamin (Vitamin B-12) (Vitamin B-12) 1,000 MCG PO DAILY (Reported)Dulaglutide (Trulicity) 0.75 MG SUBQ Grey (Reported)Ergocalciferol (Vitamin D2) (Vitamin D2) 1,250 MCG PO Grey (Reported)Folic Acid 1 MG PO DAILY (Reported)glipiZIDE (GlucotroL) 5 MG PO AC BK (Reported)levETIRAcetam (Keppra) 500 MG PO BID (Reported)Losartan (Cozaar) 50 MG PO DAILY (Reported)Magnesium Oxide (Mag-Ox 400) 400 MG PO DAILY (Reported)Med List Information (*Med List Information) 1 EA MISC .CANCEL AT DISCHARGE (Reported)metFORMIN (Glucophage) 1,000 MG PO BID MEALS (Reported)Potassium Gluconate 99 MG PO DAILY (Reported)Pyridoxine (Vitamin B6) (Vitamin B-6) 100 MG PO DAILY (Reported)traZODone (DesyreL) 50 MG PO BEDTIME (Reported)Scheduled PRN MedicationsAcetaminophen (TylenoL) 325 MG PO Q6H PRN PRN PAIN (Reported)cloNIDine (Catapres) 0.1 MG PO DAILY PRN SBP > 180 OR DBP > 100 (Reported)Allergies:Coded Allergies:No Known Allergies (08/26/24)Med Rec actions: Med Rec actions: pt reviewed by pharmacist, home med list reviewed, updatedallergies, updated ADR information, issues clarified at 0723 at 0846RPT#:[id number] OF REPORT Dixon Parsons MD- 025 [facility]ospital[facility] Progress NoteREPORT#:[id number] REPORT STATUS: SignedDATE:08/26/24 TIME: 06PATIENT: RAMAN BERNAL UNIT #: [id number]#: [id number] [facility]AGE: 59 SEX: M ATTEND: Hayden Mares MDADM AUTHOR: Therese Ortiz MD R1REP SRV REP SRV TM: 0643* ALL edits or amendments must be made on the electronic/computer document *Therese Ortiz 08/26/24 0643:SubjectiveChief complaint:Headache, shortness of breath, palpitations chest tightnessHPI:Patient seen and examined on bedside. Patient and nurse deny any acute overnightevents. Patient was started on heparin drip and nitro paste. Pain improved from10/26 to 07/26 after starting Imdur. Will continue to f/u with cardiology.ObjectiveGeneralVS/I O:Vital Signs: Date Time Temp Pulse Resp B/P B/P Pulse O2 O2 Flow FiO2 Mean Ox Delivery Rate 08/26 1344 91 135/72 / 1102 36.5 91 18 135/72 93.2 95 Room air 08/26 1046 92 137/72 / 0833 92 137/72 06/ 0832 36.8 92 20 137/72 93.3 93 Room air 08/26 0548 92 129/60 / 0110 17 08/26 0100 83 119/58 82 97 08/26 0012 106/58 75 08/26 0010 85 17 96 08/25 2340 90 12 97 08/25 2339 114/61 81 08/25 2334 37.2 91 1824 hour I O ending at 0700: 08/26 0700 08/25 1900 Intake Total Output Total Balance Patient 77.727 kg Weight Weight Estimated Measurement MethodPATIENT WEIGHT:Weight (lb):Weight (oz):Weight (kg): 77.727Temperature maximum: 37.2Medications:Active Meds + DC'd Last 24 HrsAtorvastatin Calcium (LIPITOR 40MG TABLET) 40 MG BEDTIME POTrazodone HCl (traZODone 50 MG TABLET) 50 MG BEDTIME POMagnesium Oxide (MAG-OX 400 MG TABLET) 400 MG Q4H PRN PRN POMagnesium Sulfate (MAGNESIUM SULFATE 4 G/100 ML BAG) 100 ML ASDIR PRN IVPotassium Bicarbonate/Citric Acid (EFFER-K 10 MEQ TAB.EFF FOR ORAL SOLUTION)20 MEQ Q2H PRN PRN FEED-TUBEPotassium Chloride (K-DUR 20 MEQ TABLET SA) 20 MEQ Q2H PRN PRN POPotassium Chloride/Water (POTASSIUM CL 10MEQ/100 ML JEANIE) 100 ML Q2H PRN PRN IVSotalol HCl (BETAPACE 80 MG TABLET) 80 MG Q12HR POMagnesium (initiate MAGNESIUM REPLACEMENT) 1 DOSE ASDIR MISC (CAN)Potassium Chloride (initiate POTASSIUM REPLACEMENT) 1 DOSE ASDIR MISC (CAN)Sodium Chloride (SODIUM CHLORIDE 0.9% 1000 ML SOLN) 1,000 ML BOLUS ONE IV (DC)Isosorbide Mononitrate (IMDUR 30MG TABLET SA) 30 MG DAILY POMorphine Sulfate (morphine SULFATE 2 MG/ML INJ (FK)) 2 MG ONCE ONE IV (DC)Heparin Sodium (Porcine) (HEPARIN SODIUM 5,000 UNITS/ML VIAL) 4,000 UNITSBOLUS ONE IV (DC)Heparin Sodium (Porcine) (HEPARIN SODIUM 5,000 UNITS/ML VIAL) 2,000 UNITSASDIR PRN IVHeparin Sodium (Porcine) (HEPARIN SODIUM 5,000 UNITS/ML VIAL) 4,000 UNITSASDIR PRN IVHeparin Sodium/Sodium Chloride (Heparin 25,000 Units/0.45% NACL 500 ML) 500 ML ASDIR IVMiscellaneous Medication (NO IM MEDICATIONS) 1 EACH ASDIR MISCApixaban (ELIQUIS 5 MG TABLET) 5 MG BID PO (DC)Clopidogrel Bisulfate (PLAVIX 75 MG TAB) 75 MG DAILY POFolic Acid (FOLIC ACID 1MG TABLET) 1 MG DAILY POLevetiracetam (KEPPRA 500 MG TABLET) 500 MG BID POLidocaine (LIDOCAINE 4% PATCH) 1 PATCH DAILY TRANSDERMLosartan Potassium (COZAAR 50 MG TABLET) 50 MG DAILY POSodium Chloride (NORMAL SALINE LOCK/FLUSH) 10 ML Q12HR IVThiamine HCl (VITAMIN B1 100MG TABLET) 100 MG DAILY POSodium Chloride (SODIUM CHLORIDE 0.9% 1000 ML SOLN) 1,000 ML BOLUS ONE IV (DC)Insulin Human Regular (HUMULIN R 100 UNITS/ML VIAL) AGGRESSIVE SLIDING SCALE 61-150 MG/DL, 0 UNITS 151-200 MG/DL, 2 UNITS 201-250 MG/DL, 4 UNITS 251-300 MG/DL, 6 UNITS 301-350 MG/DL, 8 UNITS 351-399 MG/DL, 10 UNITS >= 400 MG/DL, 12 UNITS AND CALL RESULTS TO PHYSICIAN AC HS SUBQEnoxaparin Sodium (LOVENOX 40 MG/0.4 ML PREFILLED SYRN) 40 MG DAILY@0600SUBQ (CAN)Sodium Chloride (NORMAL SALINE LOCK/FLUSH) 10 ML ASDIR PRN IVDiltiazem HCl (CARDIZEM 60 MG TABLET) 60 MG TID PO (DC)Chlordiazepoxide HCl (LIBRIUM 5 MG CAP) 10 MG TID POClonidine HCl (CATAPRES 0.1 MG TABLET) 0.1 MG DAILY PRN POInsulin Human Lispro (HumaLOG INSULIN) 10 UNITS ONCE ONE SUBQ (DC)Morphine Sulfate (morphine SULFATE 2 MG/ML INJ (FK)) 2 MG Q2H PRN PRN IVOndansetron HCl (ZOFRAN ODT 4 MG) 4 MG Q4H PRN PRN PODextrose (GLUCOSE 4 GM TABLET) 16 GM ASDIR PRN PODextrose/Water (DEXTROSE 50%/WATER 50 ML ABBOJECT) If patient unable toswallow and has IV access * blood sugar 60-69 mg/dl- hold insulin and administer 15 mL (7.5 grams); * Blood sugar 50-59 mg/dl- hold insulin and administer 20 mL (10 grams); * Blood sugar 30-49 mg/dl- hold insulin and administer 25 mL (12.5 grams); * Blood sugar < 30 mg/dl- hold insulin and administer 30 mL (15 grams) recheck in 15 minutes and notify physician for further instruction ASDIR PRN IVNitroglycerin (NITROSTAT 0.4 MG TABLET SL) 0.4 MG Q5M PRN PRN SLLorazepam (ATIVAN 2 MG/1 ML VIAL) 2 MG Q1H PRN PRN IVLorazepam (ATIVAN 2 MG/1 ML VIAL) 4 MG Q1H PRN PRN IVMagnesium Sulfate/Dextrose (MAGNESIUM SULFATE 1GM/100ML D5W) 100 ML ONCE ONE IV (DC)Ketorolac Tromethamine (KETOROLAC TROMETHAMINE 30 MG/ML VIAL) 30 MG X1ED STA IV (DC)Potassium Chloride (K-DUR 20 MEQ TABLET SA) 40 MEQ X1ED STA PO (DC)Insulin Human Regular (HUMULIN R 100 UNITS/ML VIAL) 5 UNITS X1ED STA IV(DC)Iopamidol (ISOVUE- 370 MULTIPACK) 75 ML PROCEDURE IVPotassium Bicarbonate/Citric Acid (EFFER-K 10 MEQ TAB.EFF FOR ORAL SOLUTION)40 MEQ X1ED STA FEED-TUBE (CAN)Potassium Chloride/Water (POTASSIUM CL 20mEq/100 ml Isotonic Soln) 100 MLX1ED STA IV (DC)Aspirin (ASPIRIN 81MG TABLET CHEW) 324 MG X1ED STA PO (DC)Morphine Sulfate (morphine SULFATE 4 MG/ML INJ) 4 MG X1ED STA IV (DC)Sodium Chloride (SODIUM CHLORIDE 0.9% 1000 ML SOLN) 1,000 ML X1ED STA IV(DC)ResultsFindings/Data:Laboratory Tests 08/27 43 Blood Gas Specimen Type BLOOD Venous Puncture Site Other pH (7.35 - 7.45) 7.372 pCO2 (35 - 45 mmHg) 42.8 pO2 (80 - 100 mmHg) 45.0 CL Bicarbonate Actual (22 - 26 mmol/L) 24.3 Base Excess (- 2.0 - 2.0 mmol/L) -1.0 O2 Saturation (96 - 100 %) 79.0 CL ABG pH (Temp Correct) (7.35 - 7.45) 7.372 ABG pCO2 (Temp Corrct (35 - 45 MMHG) 42.8 ABG pO2 (Temp Correct (80 - 100 mmHg) 45.0 L ABG Total CO2 (24 - 30 mmol/L) 25.6 ABG Carboxyhemoglobin (0 - 3.0 % tHb) 5.5 H Aman Test Unk Other Total Hgb (13.5 - 18.0 g/dL) 14.6 Blood Gas P-50 (25 - 30 mmHg) 26.8 Methemoglobin (0 - 3.0 %) 0.3 Temperature (C) 37.0 Barometric Pressure (mmHg) 760 O2 Delivery Device Room Air FiO2 (20 - 100 %) 21.0Laboratory Tests 08/26 08/26 08/26 08/26 08/26 1132 1132 1057 1011 0854 Chemistry Potassium (3.5 - 5.1 mmol/L) 3.7 Creatinine (0.7 - 1.3 mg/dL) 1.0 POC Glucose (70 - 110 mg/dl) 274 H Lactic Acid (0.5 - 2.0 mmol/L) 3.7 H 4.0 CH 4.9 CH Magnesium (1.6 - 2.6 mg/dL) 1.6 08/26 08/26 08/26 08/26 08/26 0854 0724 0551 0521 0521 Chemistry Sodium (136 - 145 mmol/L) 141 Potassium (3.5 - 5.1 mmol/L) 3.6 Chloride (98 - 107 mmol/L) 104 Carbon Dioxide (20 - 31 mmol/L) 25 Anion Gap (7 - 16 mmol/L) 12 BUN (9 - 23 mg/dL) 9 Creatinine (0.7 - 1.3 mg/dL) 1.0 Est GFR (CKD-EPI 2020) (>90.0) 86.2 L BUN/Creatinine Ratio (4 - 33) 9 Glucose (57 - 106 mg/dL) 170 H POC Glucose (70 - 110 mg/dl) 197 H Lactic Acid (0.5 - 2.0 mmol/L) 4.5 CH Calcium (8.7 - 10.4 mg/dL) 7.9 L Phosphorus (2.4 - 5.1 mg/dL) 2.7 Magnesium (1.6 - 2.6 mg/dL) 1.7 Total Bilirubin (0.3 - 1.2 mg/dL) 1.0 AST (0 - 34 U/L) 336 H ALT (10 - 49 U/L) 70 H Alkaline Phosphatase (46 - 116 U/L) 203 H Ammonia (11 - 32 umol/L) 46 H Troponin I High Sens (<54 ng/L) 736 CH Total Protein (5.7 - 8.2 g/dL) 5.8 Albumin (3.2 - 4.8 g/dL) 3.5 Globulin (1.4 - 4.8 g/dL) 2.3 Albumin/Globulin Ratio (0.7 - 3.6) 1.5 08/26 08/26 08/25 08/25 0207 0204 2353 2353 Chemistry Sodium (136 - 145 mmol/L) 137 Potassium (3.5 - 5.1 mmol/L) 3.0 L Chloride (98 - 107 mmol/L) 97 L Carbon Dioxide (20 - 31 mmol/L) 26 Anion Gap (7 - 16 mmol/L) 14 BUN (9 - 23 mg/dL) 9 Creatinine (0.7 - 1.3 mg/dL) 1.2 Est GFR (CKD-EPI 2020) (>90.0) 69.2 L BUN/Creatinine Ratio (4 - 33) 7 Glucose (57 - 106 mg/dL) 413 H POC Glucose (70 - 110 mg/dl) 353 H Calcium (8.7 - 10.4 mg/dL) 8.2 L Magnesium (1.6 - 2.6 mg/dL) 1.7 Total Bilirubin (0.3 - 1.2 mg/dL) 0.7 AST (0 - 34 U/L) 52 H ALT (10 - 49 U/L) 53 H Alkaline Phosphatase (46 - 116 U/L) 173 H Troponin I High Sens (<54 ng/L) 252 CH 57 CH B-Natriuretic Peptide (0 - 100.0 pg/ml) 35.7 Total Protein (5.7 - 8.2 g/dL) 6.6 Albumin (3.2 - 4.8 g/dL) 4.0 Globulin (1.4 - 4.8 g/dL) 2.6 Albumin/Globulin Ratio (0.7 - 3.6) 1.5 TSH (0.55 - 4.78 uIU/mL) 0.80Laboratory Tests 08/26 08/25 0936 2353 Coagulation PT (10.0 - 12.8 Seconds) 14.2 H 13.6 H INR (0.8 - 1.1) 1.3 H 1.2 H APTT (25 - 38 Seconds) 28 28Laboratory Tests 08/26 08/26 08/25 0521 0044 2353 Hematology WBC (4.0 - 10.5 10 3/uL) 6.4 5.7 RBC (4.63 - 6.08 10 6/uL) 4.39 L 4.80 Hgb (13.7 - 17.5 g/dL) 14.1 15.5 POC Hgb (Calc) (13.0 - 18.0 g/dL) 14.6 Hct (40.1 - 51.0 %) 40.7 44.1 MCV (79.0 - 92.2 fL) 92.7 H 91.9 MCH (25.7 - 32.2 pg) 32.1 32.3 H MCHC (32.3 - 36.5 g/dL) 34.6 35.1 RDW (11.6 - 14.4 %) 13.6 13.7 Plt Count (150 - 400 10 3/uL) 128 L 139 L MPV (9.4 - 12.4 fL) 10.0 10.1 Immature Gran % (0.0 - 0.4 %) 0.3 0.4 Neutrophils % (34.0 - 67.9 %) 58.0 47.4 Lymphocytes % (21.8 - 53.1 %) 32.8 42.3 Monocytes % (5.3 - 12.2 %) 7.0 8.4 Eosinophils % (0.8 - 7.0 %) 1.1 1.1 Basophils % (0.2 - 1.2 %) 0.8 0.4 Nucleated RBC % (0.0 - 0.2 %) 0.0 0.0 Immature Gran # (0.00 - 0.03 10 3/uL) 0.02 0.02 Neutrophils # (1.78 - 5.38 10 3/uL) 3.74 2.71 Lymphocytes # (1.32 - 3.57 10 3/uL) 2.11 2.41 Monocytes # (0.30 - 0.82 10 3/uL) 0.45 0.48 Eosinophils # (0.04 - 0.54 10 3/uL) 0.07 0.06 Basophils # (0.01 - 0.08 10 3/uL) 0.05 0.02 Nucleated RBCs # (0.00 - 0.18 10 3/uL) 0.00 0.00Laboratory Tests 08/26 08/25 0204 2353 Toxicology Urine Opiates Screen (NEGATIVE) PRESUMPTIVE POSITIVE A Ur Methadone, Qual (NEGATIVE) NEGATIVE Urine Fentanyl Screen (NEGATIVE) NEGATIVE Ur Barbiturates Screen (NEGATIVE) NEGATIVE Ur Tricyclics Screen (NEGATIVE) NEGATIVE Ur Amphetamine Screen (NEGATIVE) NEGATIVE U Benzodiazepines Scrn (NEGATIVE) NEGATIVE Urine Cocaine Screen (NEGATIVE) NEGATIVE U Marijuana (THC) Screen (NEGATIVE) NEGATIVE Alcohol, Quantitative (mg/dL) 298 Acetone, Qual (NEGATIVE) NEGATIVELaboratory Tests 08/26 0205 Urines Urine Color (YELLOW) Light Yellow Urine Appearance (CLEAR) Clear Urine pH (4.5 - 7.5) 7.0 Ur Specific [place] (1.005 - 1.030) 1.010 Urine Protein (NEGATIVE mg/dL) Negative Urine Ketones (NEGATIVE mg/dL) Negative Urine Blood (NEGATIVE mg/dL) Negative Urine Nitrite (NEGATIVE mg/dL) Negative Urine Bilirubin (NEGATIVE mg/dL) Negative Urine Urobilinogen (Normal mg/dL) Normal Ur Leukocyte Esterase (NEGATIVE Maira/uL) Negative Urine Glucose (NEGATIVE mg/dL) >1000 (4+) HFree Text Obj NotesFree Text Obj Notes:General appearance: alert, awake, oriented, no acute distress, pleasant,conversationalHead/Eyes: EOMI, normocephalic, PERRLENT: moist mucosal membrane, normal dentition, normal pharynxNeck: full range of motion, non- tender, no JVDCardiovascular: normal S1, S2, no murmur/gallops/rubsRespiratory: Symmetrical chest rise, no tracheal deviation, no accessory muscleuse, crackles are appreciated in lower lung bowman bilaterallyAbdomen: soft, non-tender, normal bowel sounds, no distention, no guardingGenitourinary: no flank pain, no foleyExtremities: moves all, normal capillary refill, no edemaMusculoskeletal: normal inspection, painless range of motionNeuro/AGRICULTURE MANAGER: alert, oriented x3, CN II to XII intact, Motor: Power 5/5 in B/Lupper and lower extremities, Coordination: Intact finger to nose test in B/L UEand heel to hatch test in B/L LE, Reflex: 2+ in Biceps and patellar tendon,Sensations intact, Gait unassesed.Skin: dry, intactPsychiatry: normal affect, normal judgment/insight, normal moodDiagnosis, Assessment PlanFree Text DxA P NotesFree text DxA P notes:This is a 59-year-old male with past medical history of coronary artery diseaseand CABG in 2023, alcohol use disorder, diabetes mellitus type 2 with neuropathy, history of stroke and seizure on Keppra who presents due to headache shortnessof breath chest tightness. Prior to admission with EMS patient was found to bein AFib RVR with heart rate 190 converted back to normal sinus after bolus ofCardizem. Upon admission temperature 98.9 HR 91 RR 18 BP 1 19/61 saturating 97% on room air. WBC 5.7 HB 15.5 potassium 3.0 bicarb 26 BUN 9 creatinine 1.2 GFR69.2 glucose 413 troponin 57 TSH 0.8 alcohol level 298 AST 52 ALT 53 [id number]. Patient is admitted in stable condition for new onset atrial fibrillationwith RVR.Assessment and plan:New onset atrial fibrillation with RVR-currently normal sinus rhythm ratecontrolledChads Vasc score 5 HASBLED 3-History of coronary artery disease and CABG in 2023, alcohol use disorderhistory of stroke and TIA. Patient continues to be current everyday drinker andsmoker. Denies history of major bleeding.-Potassium 3.0 TSH 0.8 Alcohol level 298.-Repeat EKGs in emergency department normal sinus rhythm-Keep potassium above 4 and magnesium above 2-Ordered echocardiogram and Cardiology consult, f/u recommendations.-Start diltiazem 60 mg t.i.d. for maintenance rate control-Start Eliquis 5 mg p.o. b.i.d.NSTEMI-We will start Plavix 75 mg daily during this admission since patient is lessthan 1 year out from CABG not on any antiplatelets currently. Continue Fppqsui69 mg daily.-Starting Nitro paste 1inch q6hrs, Imdur 30mg daily-Cardiology consulted f/u recommendations.Coronary artery disease with CABG in 11/2023-Patient had procedure done in [place], unsure of echocardiogram results. Patient no longer takes Plavix or aspirin only takes Lipitor 40 mg.-Request records from [facility]-We will start Plavix 75 mg daily during this admission since patient is lessthan 1 year out from CABG not on any antiplatelets currently. Continue Akjsmdx76 mg daily.Lateral right 7th rib fracture-Denies pain or recent coughing episodes at this time, incidental finding on CTAchest-Lidocaine patch if needed.Colitis-Denies diarrhea, recent GI symptoms, incidental finding on imaging. Continueto monitorEnlarged prostate with distended urinary bladder-Denies incontinence, urinary dribbling, dysuria endorses nocturia 2-3 times atnight. Denies history of prostate cancer-CT abdomen pelvis reveals distended bladder with enlarged prostate andrecommend correlation with PSA level. 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 at home.-Blood glucose on admission 413-10 units lispro given on admission-Adjust regimen based on sliding scale insulin requirementsChronic Alcohol use dependency, acute intoxication-Patient states he drinks 64 oz of hard lemonade daily. Has been drinker sinceadolescence. States he used to be dependent narcotics and replaced with alcohol. Denies history of cirrhosis.-On admission AST 52 ALT 53 alk-phos 175-Abdomen pelvis CT reveals hepatic steatosis-CIWA protocol in place with Librium 10 mg p.o. t.i.d., thiamine, folateHistory of seizure and stroke-Patient has history of stroke and seizure during same hospitalization roughly 01/18 years ago. Patient was started on Keppra 500 mg b.i.d. at that time reportsno subsequent episodes of seizure activity.-Continue Keppra 500 mg b.i.d.Essential hypertensionBlood pressure on admission 114/61, continue Cozaar 50 mg daily and clonidine0.1 mg p.r.n. for SBP greater than 180InsomniaContinue trazodone 50 mg dailyVTE: Lovenox 40mg dailyFEN:PO hydrationHypokalemia replaced, follow up amHeart healthy dietDisposition:- Ordered echocardiogram and follow up Cardiology recommendations-Continue CIWA protocolPatient seen, examined and discussed with Dr. Mares, attending physician andDr. Ramos (PGY2)HAYDEN MARES MD 08/27/24 1521:Diagnosis, Assessment PlanAdditional comments:MR s history reviewed. The patient was interviewed and examined by me. I agreewith the assessment and care plan and confirm the diagnosis(es) above. at 1432 at 1524RPT#:[id number] OF REPORT Dominique Hunter U8-08-Sqy26-Aug-2024 [facility] ([facility])Hospitalist History PhysicalREPORT#:[id number] REPORT STATUS: SignedDATE:08/26/24 TIME: 408PATIENT: RAMAN BERNAL UNIT #: [id number]#: [id number] ROOM[facility]BED[facility]-ADOB: [birth year]AGE: 59 SEX: M ATTEND: Hayden Mares MDADM AUTHOR: Dale Fox R1REP SRV REP SRV TM: 040* ALL edits or amendments must be made on the electronic/computer document *Dale Fox 08/26/24 0409:History of Present IllnessHPIChief complaint:Headache, shortness of breath, palpitations chest tightnessHPI:This is a 59-year-old male with past medical history of coronary artery diseaseand CABG in 2023, alcohol use disorder, diabetes mellitus type 2 with neuropathy, history of stroke and seizure on Keppra who presents due to headache shortnessof breath chest tightness. Patient reports lying in bed when onset of [id number] occurred, characterized by headache shortness of breath and chest tightness,started at 4:00 p.m. and would come and go lasting couple of minutes. He statespain located substernally and did not appreciate radiation location. He feltsimilar symptoms in [place] underwentCABG. Not relieved with lying flat. When he was with EMS, was found to be inAFib with RVR 190 which responded to Cardizem bolus and patient converted backto normal sinus rhythm and heart rate improved. Pain improved with morphine.Regarding coronary artery disease with CABG in 2023, patient states he is nolonger adherent with aspirin or Plavix. He is taking Lipitor 40 mg daily. Hedoes not recall echocardiogram results at [facility].Regarding alcohol use disorder, patient states he drinks 64 oz of Amish's hardlemonade daily. Has been drinker since adolescence. States he used to bedependent narcotics and replaced with alcohol. Denies history of cirrhosis.HistoryPast medical history:Reports: Alcoholism/subst abuse, Coronary artery disease, Diabetes mellitus,Hypertension, Seizure disorder, Transient ischemic attack. Denies: COPD,Bleeding disorder.Past surgical history:Reports: CABG.Alcohol use: Alcohol useSmoking status for patients 13 years old or older: Current every day smokerReview of SystemsFree Text ROS NotesFree Text ROS Notes:Constitutional: Denies: chills, fever, generalized weakness, recent wt loss.Skin: Denies: bruising, itching, rash.Allergy/Immune: Denies: hives, itching, rhinorrhea.Eyes: Denies: redness, discharge, visual loss/blurred, eye pain.ENT: Denies: ear ringing, earache, mouth pain, nasal congestion, sore throat,throat pain.Respiratory: Denies: GONGORA (dyspnea on exertion), hemoptysis, non productive cough, pleuritic pain, productive cough (sputum), SOB, wheezing.Cardiovascular: Denies: chest pain, GONGORA (dyspnea on exertion), edema,palpitations.GI: Denies: abdominal pain, constipation, diarrhea, hematemesis, hematochezia,nausea, vomiting.: Denies: dysuria, frequency, hematuria.Musculoskeletal: Denies: joint pain, joint swelling, myalgias.Heme: Denies: bleeding, bruising.Endocrine: Denies: cold intolerance, heat intolerance, polydipsia, polyuria,weight gain, weight loss.Neuro: Denies: confusion, dizziness, focal weakness, headache, numbness.ObjectiveGeneralVS/I O:Vital Signs: Date Time Temp Pulse Resp B/P B/P Pulse O2 O2 Flow FiO2 Mean Ox Delivery Rate 08/26 0110 17 08/26 0100 83 119/58 82 97 08/26 0012 106/58 75 08/26 0010 85 17 96 08/25 2340 90 12 97 08/25 2339 114/61 81 08/25 2334 98.9 91 1824 hour I O ending at 0700: 08/26 0700 08/25 1900 Intake Total Output Total Balance Patient 77.727 kg Weight Weight Estimated Measurement MethodPATIENT WEIGHT:Weight (lb):Weight (oz):Weight (kg): 77.727Medications:Active Meds + DC'd Last 24 HrsAtorvastatin Calcium (LIPITOR 40MG TABLET) 40 MG BEDTIME POTrazodone HCl (traZODone 50 MG TABLET) 50 MG BEDTIME POClopidogrel Bisulfate (PLAVIX 75 MG TAB) 75 MG DAILY POFolic Acid (FOLIC ACID 1MG TABLET) 1 MG DAILY PO (UNV)Levetiracetam (KEPPRA 500 MG TABLET) 500 MG BID POLosartan Potassium (COZAAR 50 MG TABLET) 50 MG DAILY POThiamine HCl (VITAMIN B1 100MG TABLET) 100 MG DAILY PO (UNV)Insulin Human Regular (HUMULIN R 100 UNITS/ML VIAL) AGGRESSIVE SLIDING SCALE 61-150 MG/DL, 0 UNITS 151-200 MG/DL, 2 UNITS 201-250 MG/DL, 4 UNITS 251-300 MG/DL, 6 UNITS 301-350 MG/DL, 8 UNITS 351-399 MG/DL, 10 UNITS >= 400 MG/DL, 12 UNITS AND CALL RESULTS TO PHYSICIAN AC HS SUBQ (UNV)Enoxaparin Sodium (LOVENOX 40 MG/0.4 ML PREFILLED SYRN) 40 MG DAILY@0600SUBQ (UNV)Diltiazem HCl (CARDIZEM 60 MG TABLET) 60 MG TID POChlordiazepoxide HCl (LIBRIUM 5 MG CAP) 10 MG TID POClonidine HCl (CATAPRES 0.1 MG TABLET) 0.1 MG DAILY PRN POInsulin Human Lispro (HumaLOG INSULIN) 10 UNITS ONCE ONE SUBQ (DC)Morphine Sulfate (morphine SULFATE 2 MG/ML INJ (FK)) 2 MG Q2H PRN PRN IV(UNV)Ondansetron HCl (ZOFRAN ODT 4 MG) 4 MG Q4H PRN PRN PODextrose (GLUCOSE 4 GM TABLET) 16 GM ASDIR PRN PODextrose/Water (DEXTROSE 50%/WATER 50 ML ABBOJECT) If patient unable toswallow and has IV access * blood sugar 60- 69 mg/dl- hold insulin and administer 15 mL (7.5 grams); * Blood sugar 50-59 mg/dl- hold insulin and administer 20 mL (10 grams); * Blood sugar 30-49 mg/dl- hold insulin and administer 25 mL (12.5 grams); * Blood sugar < 30 mg/dl- hold insulin and administer 30 mL (15 grams) recheck in 15 minutes and notify physician for further instruction ASDIR PRN IVNitroglycerin (NITROSTAT 0.4 MG TABLET SL) 0.4 MG Q5M PRN PRN SL (UNV)Lorazepam (ATIVAN 2 MG/1 ML VIAL) 2 MG Q1H PRN PRN IVLorazepam (ATIVAN 2 MG/1 ML VIAL) 4 MG Q1H PRN PRN IVMagnesium Sulfate/Dextrose (MAGNESIUM SULFATE 1GM/100ML D5W) 100 ML ONCE ONE IV (UNV)Ketorolac Tromethamine (KETOROLAC TROMETHAMINE 30 MG/ML VIAL) 30 MG X1ED STA IV (DC)Potassium Chloride (K-DUR 20 MEQ TABLET SA) 40 MEQ X1ED STA PO (DC)Insulin Human Regular (HUMULIN R 100 UNITS/ML VIAL) 5 UNITS X1ED STA IV(DC)Iopamidol (ISOVUE-370 MULTIPACK) 75 ML PROCEDURE IVPotassium Bicarbonate/Citric Acid (EFFER-K 10 MEQ TAB.EFF FOR ORAL SOLUTION)40 MEQ X1ED STA FEED-TUBE (CAN)Potassium Chloride/Water (POTASSIUM CL 20mEq/100 ml Isotonic Soln) 100 MLX1ED STA IV (DC)Aspirin (ASPIRIN 81MG TABLET CHEW) 324 MG X1ED STA PO (DC)Morphine Sulfate (morphine SULFATE 4 MG/ML INJ) 4 MG X1ED STA IV (DC)Sodium Chloride (SODIUM CHLORIDE 0.9% 1000 ML SOLN) 1,000 ML X1ED STA IV(DC)ResultsFindings/Data:Laboratory Tests 08/26 0044 Blood Gas Specimen Type BLOOD Venous Puncture Site Other pH (7.35 - 7.45) 7.372 pCO2 (35 - 45 mmHg) 42.8 pO2 (80 - 100 mmHg) 45.0 CL Bicarbonate Actual (22 - 26 mmol/L) 24.3 Base Excess (-2.0 - 2.0 mmol/L) -1.0 O2 Saturation (96 - 100 %) 79.0 CL ABG pH (Temp Correct) (7.35 - 7.45) 7.372 ABG pCO2 (Temp Corrct (35 - 45 MMHG) 42.8 ABG pO2 (Temp Correct (80 - 100 mmHg) 45.0 L ABG Total CO2 (24 - 30 mmol/L) 25.6 ABG Carboxyhemoglobin (0 - 3.0 % tHb) 5.5 H Aman Test Unk Other Total Hgb (13.5 - 18.0 g/dL) 14.6 Blood Gas P-50 (25 - 30 mmHg) 26.8 Methemoglobin (0 - 3.0 %) 0.3 Temperature (C) 37.0 Barometric Pressure (mmHg) 760 O2 Delivery Device Room Air FiO2 (20 - 100 %) 21.0Laboratory Tests 08/26 08/26 08/25 08/25 0207 0204 2353 2353 Chemistry Sodium (136 - 145 mmol/L) 137 Potassium (3.5 - 5.1 mmol/L) 3.0 L Chloride (98 - 107 mmol/L) 97 L Carbon Dioxide (20 - 31 mmol/L) 26 Anion Gap (7 - 16 mmol/L) 14 BUN (9 - 23 mg/dL) 9 Creatinine (0.7 - 1.3 mg/dL) 1.2 Est GFR (CKD- EPI 2020) (>90.0) 69.2 L BUN/Creatinine Ratio (4 - 33) 7 Glucose (57 - 106 mg/dL) 413 H POC Glucose (70 - 110 mg/dl) 353 H Calcium (8.7 - 10.4 mg/dL) 8.2 L Magnesium (1.6 - 2.6 mg/dL) 1.7 Total Bilirubin (0.3 - 1.2 mg/dL) 0.7 AST (0 - 34 U/L) 52 H ALT (10 - 49 U/L) 53 H Alkaline Phosphatase (46 - 116 U/L) 173 H Troponin I High Sens (<54 ng/L) 252 CH 57 CH B-Natriuretic Peptide (0 - 100.0 pg/ml) 35.7 Total Protein (5.7 - 8.2 g/dL) 6.6 Albumin (3.2 - 4.8 g/dL) 4.0 Globulin (1.4 - 4.8 g/dL) 2.6 Albumin/Globulin Ratio (0.7 - 3.6) 1.5 TSH (0.55 - 4.78 uIU/mL) 0.80Laboratory Tests 08/25 2353 Coagulation PT (10.0 - 12.8 Seconds) 13.6 H INR (0.8 - 1.1) 1.2 H APTT (25 - 38 Seconds) 28Laboratory Tests 08/26 08/25 0044 2353 Hematology WBC (4.0 - 10.5 10 3/uL) 5.7 RBC (4.63 - 6.08 10 6/uL) 4.80 Hgb (13.7 - 17.5 g/dL) 15.5 POC Hgb (Calc) (13.0 - 18.0 g/dL) 14.6 Hct (40.1 - 51.0 %) 44.1 MCV (79.0 - 92.2 fL) 91.9 MCH (25.7 - 32.2 pg) 32.3 H MCHC (32.3 - 36.5 g/dL) 35.1 RDW (11.6 - 14.4 %) 13.7 Plt Count (150 - 400 10 3/uL) 139 L MPV (9.4 - 12.4 fL) 10.1 Immature Gran % (0.0 - 0.4 %) 0.4 Neutrophils % (34.0 - 67.9 %) 47.4 Lymphocytes % (21.8 - 53.1 %) 42.3 Monocytes % (5.3 - 12.2 %) 8.4 Eosinophils % (0.8 - 7.0 %) 1.1 Basophils % (0.2 - 1.2 %) 0.4 Nucleated RBC % (0.0 - 0.2 %) 0.0 Immature Gran # (0.00 - 0.03 10 3/uL) 0.02 Neutrophils # (1.78 - 5.38 10 3/uL) 2.71 Lymphocytes # (1.32 - 3.57 10 3/uL) 2.41 Monocytes # (0.30 - 0.82 10 3/uL) 0.48 Eosinophils # (0.04 - 0.54 10 3/uL) 0.06 Basophils # (0.01 - 0.08 10 3/uL) 0.02 Nucleated RBCs # (0.00 - 0.18 10 3/uL) 0.00Laboratory Tests 08/26 08/25 0204 2353 Toxicology Urine Opiates Screen (NEGATIVE) PRESUMPTIVE POSITIVE A Ur Methadone, Qual (NEGATIVE) NEGATIVE Urine Fentanyl Screen (NEGATIVE) NEGATIVE Ur Barbiturates Screen (NEGATIVE) NEGATIVE Ur Tricyclics Screen (NEGATIVE) NEGATIVE Ur Amphetamine Screen (NEGATIVE) NEGATIVE U Benzodiazepines Scrn (NEGATIVE) NEGATIVE Urine Cocaine Screen (NEGATIVE) NEGATIVE U Marijuana (THC) Screen (NEGATIVE) NEGATIVE Alcohol, Quantitative (mg/dL) 298 Acetone, Qual (NEGATIVE) NEGATIVELaboratory Tests 08/26 0205 Urines Urine Color (YELLOW) Light Yellow Urine Appearance (CLEAR) Clear Urine pH (4.5 - 7.5) 7.0 Ur Specific [place] (1.005 - 1.030) 1.010 Urine Protein (NEGATIVE mg/dL) Negative Urine Ketones (NEGATIVE mg/dL) Negative Urine Blood (NEGATIVE mg/dL) Negative Urine Nitrite (NEGATIVE mg/dL) Negative Urine Bilirubin (NEGATIVE mg/dL) Negative Urine Urobilinogen (Normal mg/dL) Normal Ur Leukocyte Esterase (NEGATIVE Maira/uL) Negative Urine Glucose (NEGATIVE mg/dL) >1000 (4+) HRadiology data:Recent Impressions:RADIOLOGY - CHEST PORTABLE 08/25 2354 Report Impression - Status: SIGNED Entered: 08/26/2024 0258IMPRESSION:No acute cardiopulmonary findings.Interpreted by: Marylin Mcclure DOI personally have reviewed the imaging as well as the resident'sinterpretation and agree with the above report.Electronically signed by: Mireille Martinez MD 08/26/2024 02:56 AMEDT RPWorkstation: [id number] By: SERA MARTINEZ, BETHOMPUTERIZED TOMOGRAPHY - CT ABDOMEN/PELVIS W/ CONT 08/26 49 Report Impression - Status: SIGNED Entered: 08/26/2024 0207IMPRESSION:1. Segments of wall thickening in the right and left colon areconsistent with inflammation.2. Hepatic steatosis.3. Distended urinary bladder with enlarged prostate. Correlatewith PSA level.Interpreted by: Marylin MARTINEZ personally have reviewed the imaging as well as the resident'sinterpretation and agree with the above report.Electronically signed by: Mireille Martinez MD 08/26/2024 02:04 AMEDT RPWorkstation: [id number] By: BETH OLIVAREZOMPUTERIZED TOMOGRAPHY - CT CTA CHEST W/ CONTRAST 08/26 005 Report Impression - Status: SIGNED Entered: 08/26/2024 0159IMPRESSION:1. No CTA evidence of pulmonary embolism or arterial dissection.2. Lateral right seventh rib fracture.Interpreted by: Marylin MARTINEZ personally have reviewed the imaging as well as the resident'sinterpretation and agree with the above report.Electronically signed by: Mireille Martinez MD 08/26/2024 01:57 AMEDT RPWorkstation: [id number] By: SERA MARTINEZ, MDResults: labs reviewed, vital signs reviewed, current med profile rev'dFree Text Obj NotesFree Text Obj Notes:General appearance: alert, awake, oriented, no acute distress, pleasant,conversationalHead/Eyes: EOMI, normocephalic, PERRLENT: moist mucosal membrane, normal dentition, normal pharynxNeck: full range of motion, non- tender, no JVDCardiovascular: normal S1, S2, no murmur/gallops/rubsRespiratory: Symmetrical chest rise, no tracheal deviation, no accessory muscleuse, clear to auscultation bilaterally, no abnormal breath sounds appreciatedAbdomen: soft, non-tender, normal bowel sounds, no distention, no guardingGenitourinary: no flank pain, no foleyExtremities: moves all, normal capillary refill, no edemaMusculoskeletal: normal inspection, painless range of motionNeuro/AGRICULTURE MANAGER: alert, oriented x3, CN II to XII intact, Motor: Power 5/5 in B/Lupper and lower extremities, Coordination: Intact finger to nose test in B/L UEand heel to hatch test in B/L LE, Reflex: 2+ in Biceps and patellar tendon,Sensations intact, Gait unassesed.Skin: dry, intactPsychiatry: normal affect, normal judgment/insight, normal moodDiagnosis, Assessment PlanFree Text DxA P NotesFree Text DxA P Notes:This is a 59-year-old male with past medical history of coronary artery diseaseand CABG in 2023, alcohol use disorder, diabetes mellitus type 2 with neuropathy, history of stroke and seizure on Keppra who presents due to headache shortnessof breath chest tightness. Prior to admission with EMS patient was found to bein AFib RVR with heart rate 190 converted back to normal sinus after bolus ofCardizem. Upon admission temperature 98.9 HR 91 RR 18 BP 1 19/61 saturating 97% on room air. WBC 5.7 HB 15.5 potassium 3.0 bicarb 26 BUN 9 creatinine 1.2 GFR69.2 glucose 413 troponin 57 TSH 0.8 alcohol level 298 AST 52 ALT 53 [id number]. Patient is admitted in stable condition for new onset atrial fibrillationwith RVR.Assessment and plan:New onset atrial fibrillation with RVR-currently normal sinus rhythm ratecontrolledChads Vasc score 5 HASBLED 3- History of coronary artery disease and CABG in 2023, alcohol use disorderhistory of stroke and TIA. Patient continues to be current everyday drinker andsmoker. Denies history of major bleeding.-Potassium 3.0 TSH 0.8 Alcohol level 298.-Repeat EKGs in emergency department normal sinus rhythm-Keep potassium above 4 and magnesium above 2- Ordered echocardiogram and Cardiology consult.-Start diltiazem 60 mg t.i.d. for maintenance rate control-Start Eliquis 5 mg p.o. b.i.d.Type 2 MN secondary to new onset atrial fibrillation-We will start Plavix 75 mg daily during this admission since patient is lessthan 1 year out from CABG not on any antiplatelets currently. Continue Quclgfu67 mg daily.-Nitroglycerin sublingual p.r.n. and morphine started for painCoronary artery disease with CABG in 11/2023-Patient had procedure done in [place], unsure of echocardiogram results. Patient no longer takes Plavix or aspirin only takes Lipitor 40 mg.-Request records from [facility]-We will start Plavix 75 mg daily during this admission since patient is lessthan 1 year out from CABG not on any antiplatelets currently. Continue Pdvmesd90 mg daily.Lateral right 7th rib fracture-Denies pain or recent coughing episodes at this time, incidental finding on CTAchest-Lidocaine patch if needed.Colitis-Denies diarrhea, recent GI symptoms, incidental finding on imaging. Continueto monitorEnlarged prostate with distended urinary bladder-Denies incontinence, urinary dribbling, dysuria endorses nocturia 2-3 times atnight. Denies history of prostate cancer-CT abdomen pelvis reveals distended bladder with enlarged prostate andrecommend correlation with PSA level. 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 at home.- Blood glucose on admission 413-10 units lispro given on admission-Adjust regimen based on sliding scale insulin requirementsChronic Alcohol use dependency, acute intoxication-Patient states he drinks 64 oz of hard lemonade daily. Has been drinker sinceadolescence. States he used to be dependent narcotics and replaced with alcohol. Denies history of cirrhosis.-On admission AST 52 ALT 53 alk-phos 175-Abdomen pelvis CT reveals hepatic steatosis-CIWA protocol in place with Librium 10 mg p.o. t.i.d., thiamine, folateHistory of seizure and stroke-Patient has history of stroke and seizure during same hospitalization roughly 11/2 years ago. Patient was started on Keppra 500 mg b.i.d. at that time reportsno subsequent episodes of seizure activity.-Continue Keppra 500 mg b.i.d.Essential hypertensionBlood pressure on admission 114/61, continue Cozaar 50 mg daily and clonidine0.1 mg p.r.n. for SBP greater than 180InsomniaContinue trazodone 50 mg dailyVTE: Lovenox 40mg dailyFEN:PO hydrationHypokalemia replaced, follow up amHeart healthy dietDisposition:- Ordered echocardiogram and follow up Cardiology recommendations-Continue CIWA protocolPatient discussed with Dr. Mackay, attending physician and Dr. Maldonado [id number] MACKAY MD 08/26/24 1522:HistoryMedication/Allergy-Vaccine HxAllergies:Coded Allergies:No Known Allergies (08/26/24)AttestationsTeaching Physician [id number] visit w/o resident:I was the physician digital content manager overnight for resident supervision and coverage ofthe hospitalist service. at 0621 at 1523RPT#:[id number] OF REPORT Nya Longoria MD-25-Aug-2024 [facility] ([facility])EMERGENCY PROVIDER REPORTREPORT#:[id number] REPORT STATUS: SignedDATE:08/25/24 TIME: 233PATIENT: RAMAN BERNAL UNIT #: [id number]#: [id number] ROOM/BED: [facility]-ADOB: [birth year] AGE: 59 SEX: M PCP PHYS: Walker Lui MDSERVICE AUTHOR: Bill Taylor MDREP SRV REP SRV TM: 2336* ALL edits or amendments must be made on the electronic/computer document *HPI-Palpit/ArrhythFree Text HPI NotesFree Text HPI [id number] male with past medical history of coronary artery disease, diabetes,CABG presents to ED via EMS for AFib RVR. Per EMS, patient called for chesttightness and palpitations. Upon arrival he was noted to be tachycardic to [id number]. He received a bolus of 20 mg of Cardizem followed by 2nd bolus 25 mg withachieved rate control into the 80s. Patient with persistent chest tightness,shortness of breath and upper abdominal pain. Of note, patient does admit tohaving been drinking 3-4 [employer] Hard lemonade.GeneralConfirmed Patient YesPatient Type New patientInitial Greet Date/Time 08/25/24 2331PresentationChief Complaint Chest pain, Palpitations, Shortness of breathHx Obtained From Patient, EMSPast Medical History - AdultStated Complaint AFIB RVRAllergiesCoded Allergies:No Known Allergies (09/11/24)Home MedicationsActive ScriptsPANTOPRAZOLE (PROTONIX) 40 MG PO DAILY 30 Days #39 TAB Ref 1 Prov: 09/10/24Reported MedicationsMed List Information (*Med List Information) 1 EA MISC .CANCEL AT DISCHARGEglipiZIDE (GlucotroL) 5 MG PO BIDErgocalciferol (Vitamin D2) (Vitamin D2) 1,250 MCG PO SuDulaglutide (Trulicity) 0.75 MG SUBQ SuCyanocobalamin (Vitamin B-12) (Vitamin B-12) 1,000 MCG PO DAILYFolic Acid 1 MG PO DAILYPyridoxine (Vitamin B6) (Vitamin B-6) 100 MG PO DAILYMagnesium Oxide (Mag-Ox 400) 400 MG PO DAILYAtorvastatin (Lipitor) 40 MG PO BEDTIMEtraZODone (DesyreL) 50 MG PO BEDTIMEmetFORMIN (Glucophage) 1,000 MG PO BID MEALSlevETIRAcetam (Keppra) 500 MG PO BIDLosartan (Cozaar) 50 MG PO DAILYEmpagliflozin (Jardiance) 10 MG PO QAMPhysical ExamVital SignsVital SignsFirst Documented: Result Date Time Temp 37.2 08/25 2334 Pulse 91 08/25 2334 Resp 18 08/25 2334 B/P 114/61 08/25 2339 B/P Mean 81 08/25 2339 Pulse Ox 97 08/25 2340Last Documented: Result Date Time Resp 17 08/26 0110 Pulse Ox 97 08/26 0100 B/P 119/58 08/26 0100 B/P Mean 82 08/26 0100 Pulse 83 / 0100 Temp 37.2 08/25 2334Review of Vital Signs ReviewedFree Text PE NotesFree Text PE NotesGeneral/Const: Awake, alert, no acute distress, cooperative. Chronically ill-appearing. Head/Eyes: Atraumatic, normocephalic, PERRL, EOMI, normal conjunctiva, noscleral icterus. ENT: Mucous membranes moist, pharynx: no erythema or exudate, uvula midline Neck/Back: Supple, FROM, no significant paraspinal spasms, no JVD Respiratory/Chest: Chest wall non-TTP, no crepitus, No respiratory distress,clear to auscultation throughout, no rhonchi, no wheezing, no rales, noretractions, no stridor Cardiovascular: Heart rate NL, regular rhythm, heart sounds NL. No murmurs/rubs/gallops. Normal peripheral perfusion (cap refill <3 seconds), pulses equallybilaterally Abdomen/GI: Soft, ND. + upper abdominal tenderness to palpation. no guarding,no rebound, no rigidity, no pulsatile masses, no CVAT : Deferred Lower Extremities: MAEW, no BLE edema, distal NVI Skin: Color NL, no rashes, warm, dry. No significant lacerations, abrasions orcontusions. Neurologic: Oriented X3, speech NL, no focal neurological deficits, NL gait Psych: Cooperative, normal mood and affect, normal thought processes andjudgmentInterpretation DiagnosticsLab Results InterpretationResultsLaboratory Tests08/25/24 2353:[Embedded Image Not Available]Laboratory Tests: 08/26 08/26 0207 0205 Chemistry POC Glucose (70 - 110 mg/dl) 353 H Urines Urine Color (YELLOW) Light Yellow Urine Appearance (CLEAR) Clear Urine pH (4.5 - 7.5) 7.0 Ur Specific [place] (1.005 - 1.030) 1.010 Urine Protein (NEGATIVE mg/dL) Negative Urine Ketones (NEGATIVE mg/dL) Negative Urine Blood (NEGATIVE mg/dL) Negative Urine Nitrite (NEGATIVE mg/dL) Negative Urine Bilirubin (NEGATIVE mg/dL) Negative Urine Urobilinogen (Normal mg/dL) Normal Ur Leukocyte Esterase (NEGATIVE Maira/uL) Negative Urine Glucose (NEGATIVE mg/dL) >1000 (4+) H 08/26 08/26 0204 0044 Blood Gas Specimen Type BLOOD Venous Puncture Site Other pH (7.35 - 7.45) 7.372 pCO2 (35 - 45 mmHg) 42.8 pO2 (80 - 100 mmHg) 45.0 CL Bicarbonate Actual (22 - 26 mmol/L) 24.3 Base Excess (-2.0 - 2.0 mmol/L) -1.0 O2 Saturation (96 - 100 %) 79.0 CL ABG pH (Temp Correct) (7.35 - 7.45) 7.372 ABG pCO2 (Temp Corrct (35 - 45 MMHG) 42.8 ABG pO2 (Temp Correct (80 - 100 mmHg) 45.0 L ABG Total CO2 (24 - 30 mmol/L) 25.6 ABG Carboxyhemoglobin (0 - 3.0 % tHb) 5.5 H Aman Test Unk Other Total Hgb (13.5 - 18.0 g/dL) 14.6 Blood Gas P-50 (25 - 30 mmHg) 26.8 Methemoglobin (0 - 3.0 %) 0.3 Temperature (C) 37.0 Barometric Pressure (mmHg) 760 O2 Delivery Device Room Air FiO2 (20 - 100 %) 21.0 Chemistry Troponin I High Sens (<54 ng/L) 252 CH Hematology POC Hgb (Calc) (13.0 - 18.0 g/dL) 14.6 Toxicology Urine Opiates Screen (NEGATIVE) PRESUMPTIVE POSITIVE A Ur Methadone, Qual (NEGATIVE) NEGATIVE Urine Fentanyl Screen (NEGATIVE) NEGATIVE Ur Barbiturates Screen (NEGATIVE) NEGATIVE Ur Tricyclics Screen (NEGATIVE) NEGATIVE Ur Amphetamine Screen (NEGATIVE) NEGATIVE U Benzodiazepines Scrn (NEGATIVE) NEGATIVE Urine Cocaine Screen (NEGATIVE) NEGATIVE U Marijuana (THC) Screen (NEGATIVE) NEGATIVE 08/25 08/25 2353 2353 Chemistry Sodium (136 - 145 mmol/L) 137 Potassium (3.5 - 5.1 mmol/L) 3.0 L Chloride (98 - 107 mmol/L) 97 L Carbon Dioxide (20 - 31 mmol/L) 26 Anion Gap (7 - 16 mmol/L) 14 BUN (9 - 23 mg/dL) 9 Creatinine (0.7 - 1.3 mg/dL) 1.2 Est GFR (CKD-EPI 2020) (>90.0) 69.2 L BUN/Creatinine Ratio (4 - 33) 7 Glucose (57 - 106 mg/dL) 413 H Calcium (8.7 - 10.4 mg/dL) 8.2 L Magnesium (1.6 - 2.6 mg/dL) 1.7 Total Bilirubin (0.3 - 1.2 mg/dL) 0.7 AST (0 - 34 U/L) 52 H ALT (10 - 49 U/L) 53 H Alkaline Phosphatase (46 - 116 U/L) 173 H Troponin I High Sens (<54 ng/L) 57 CH B-Natriuretic Peptide (0 - 100.0 pg/ml) 35.7 Total Protein (5.7 - 8.2 g/dL) 6.6 Albumin (3.2 - 4.8 g/dL) 4.0 Globulin (1.4 - 4.8 g/dL) 2.6 Albumin/Globulin Ratio (0.7 - 3.6) 1.5 TSH (0.55 - 4.78 uIU/mL) 0.80 Coagulation PT (10.0 - 12.8 Seconds) 13.6 H INR (0.8 - 1.1) 1.2 H APTT (25 - 38 Seconds) 28 Hematology WBC (4.0 - 10.5 10 3/uL) 5.7 RBC (4.63 - 6.08 10 6/uL) 4.80 Hgb (13.7 - 17.5 g/dL) 15.5 Hct (40.1 - 51.0 %) 44.1 MCV (79.0 - 92.2 fL) 91.9 MCH (25.7 - 32.2 pg) 32.3 H MCHC (32.3 - 36.5 g/dL) 35.1 RDW (11.6 - 14.4 %) 13.7 Plt Count (150 - 400 10 3/uL) 139 L MPV (9.4 - 12.4 fL) 10.1 Immature Gran % (0.0 - 0.4 %) 0.4 Neutrophils % (34.0 - 67.9 %) 47.4 Lymphocytes % (21.8 - 53.1 %) 42.3 Monocytes % (5.3 - 12.2 %) 8.4 Eosinophils % (0.8 - 7.0 %) 1.1 Basophils % (0.2 - 1.2 %) 0.4 Nucleated RBC % (0.0 - 0.2 %) 0.0 Immature Gran # (0.00 - 0.03 10 3/uL) 0.02 Neutrophils # (1.78 - 5.38 10 3/uL) 2.71 Lymphocytes # (1.32 - 3.57 10 3/uL) 2.41 Monocytes # (0.30 - 0.82 10 3/uL) 0.48 Eosinophils # (0.04 - 0.54 10 3/uL) 0.06 Basophils # (0.01 - 0.08 10 3/uL) 0.02 Nucleated RBCs # (0.00 - 0.18 10 3/uL) 0.00 Toxicology Alcohol, Quantitative (mg/dL) 298 Acetone, Qual (NEGATIVE) NEGATIVERecent Impressions:RADIOLOGY - CHEST PORTABLE 08/255 Report Impression - Status: SIGNED Entered: 08/26/2024 0258IMPRESSION:No acute cardiopulmonary findings.Interpreted by: Marylin MARTINEZ personally have reviewed the imaging as well as the resident'sinterpretation and agree with the above report.Electronically signed by: Mireille Martinez MD 08/26/2024 02:56 AMEDT RPWorkstation: [id number] By: BETH OLIVAREZOMPUTERIZED TOMOGRAPHY - CT ABDOMEN/PELVIS W/ CONT 08/26 0050 Report Impression - Status: SIGNED Entered: 08/26/2024 0207IMPRESSION:1. Segments of wall thickening in the right and left colon areconsistent with inflammation.2. Hepatic steatosis.3. Distended urinary bladder with enlarged prostate. Correlatewith PSA level.Interpreted by: Marylin MARTINEZ personally have reviewed the imaging as well as the resident'sinterpretation and agree with the above report.Electronically signed by: Mireille Martinez MD 08/26/2024 02:04 AMEDT RPWorkstation: [id number] By: BETH OLIVAREZOMPUTERIZED TOMOGRAPHY - CT CTA CHEST W/ CONTRAST 08/26 0050 Report Impression - Status: SIGNED Entered: 08/26/2024 0159IMPRESSION:1. No CTA evidence of pulmonary embolism or arterial dissection.2. Lateral right seventh rib fracture.Interpreted by: Marylin MARTINEZ personally have reviewed the imaging as well as the resident'sinterpretation and agree with the above report.Electronically signed by: Mireille Martinez MD 08/26/2024 01:57 AMEDT RPWorkstation: [id number] By: SERA MARTINEZ MD Lab Imaging StatementLaboratory radiographic studies reviewed and considered in the medicaldecision-making.Point of Care TestingPulse Oximetry Pulse Ox % 97 On: Room air Interpretation Interpreted by me, Pulse oximetry normalECG #1 InterpretationText/Dict NoteNormal sinus rhythm with a rate of 89. Normal axis. Nonspecific ST changes.No ST elevated myocardial infarction.ECG Documented in MUSE YesDate 09/15/24Time 2341Interpreted by and reviewed by me, Independently interpretedRe-Evaluation MDMFree Text MDM NotesAdditional TextMedical Decision MakingProblems Addressed:NSTEMI: complicated acute illness or injury with systemic symptoms that poses athreat to life or bodily functionsAFib RVR: complicated acute illness or injury with systemic symptoms that posesa threat to life or bodily functionsHyperglycemia: chronic illness or injury with severe exacerbation, progressionAmount and/or Complexity of Data ReviewedIndependent Historian:- parent, guardian, caregiver, spouse, friend and EMSExternal Data Reviewed:- labs, radiology, ECG and notes.Labs: ordered.- Details: Hyperglycemia, elevated troponins,Radiology: ordered and independent interpretation performed.- My interpretation of radiology imagingCT abd/pelvis showed no small bowel obstruction, no free air, no intraperitonealbloodThis is my interpretation read waiting for official read from radiologistMy interpretation of radiology imagingCT Chest showed no pneumothorax, no pneumonia, no hemothoraxThis is my interpretation read waiting for official read from radiologistECG/medicine tests: ordered and independent interpretation performed.-Sinus rhythm with a rate of 89. Nonspecific ST changes. No ST elevatedmyocardial infarction.Discussion of management or test interpretation with external provider(s):-Hospitalist, CardiologyRiskOTC drugs.Prescription drug management.Parenteral controlled substances.Drug therapy requiring intensive monitoring for toxicity.Decision regarding hospitalization.Diagnosis or treatment significantly limited by social determinants of health.Critical CareTotal time providing critical care: [37] minutesExternal Documents Reviewed - EMS Run sheet from this encounter, PDMP (Prescription Drug Monitor Program) electronic databaseDifferential Diagnosis: ACS versus AFib RVR versus V-tach versus otherarrhythmiaDiabetic Hyperglycemia (Severe Exacerbation - Insulin) - Patient has severeexacerbation of diabetic hyperglycemia as it pertains to outpatient long termtreatment goals, Insulin administered and glucose monitored in ED.Patient management and treatment discussed with - Patient, Admitting Physician,and Specialist ConsultantPlan of care including diagnostics, treatment and disposition was discussed andin agreement with patientCode status discussedSCORING TOOLS: GCS 15Social Determinants of Health limiting care of patient Multiple Commorbidities ,Advanced Age, and social stressorsED CourseMedication(s) OrderedMedication(s) Ordered:Central Nervous System Agents Sig/Darshana Start time Last Medication Dose Route Stop Time Status Admin Ketorolac 30 MG X1ED STA 08/26 0236 DC Tromethamine IV 08/26 0237 Aspirin 324 MG X1ED STA 08/26 0036 DC 08/26 PO 08/26 0037 0204 Morphine Sulfate 4 MG X1ED STA 08/26 0021 DC 08/26 IV 08/26 0022 0025Diagnostic Agents Sig/Darshana Start time Last Medication Dose Route Stop Time Status Admin Iopamidol 75 ML PROCEDURE 08/26 0043 AC 08/26 IV 08/27 0042 0113Electrolytic, Caloric, And Lety Sig/Darshana Start time Last Medication Dose Route Stop Time Status Admin Potassium Chloride 40 MEQ X1ED STA 08/26 0157 DC 08/26 PO 08/26 0158 0208 Potassium 40 MEQ X1ED STA 08/26 0038 CAN Bicarbonate/Citric FEED-TUBE 08/26 0039 Acid Potassium Chloride/ 100 ML X1ED STA 08/26 0038 DC 08/26 Water IV 08/26 0237 0204 Sodium Chloride 1,000 ML X1ED STA 08/25 2336 DC 08/25 IV 08/26 0035 2355Hormones And Synthetic Substit Sig/Darshana Start time Last Medication Dose Route Stop Time Status Admin Insulin Human Regular 5 UNITS X1ED STA 08/26 0141 DC 08/26 IV 08/26 0142 0206Patient Discharge DepartureVital Signs/ConditionVital SignsFirst Documented: Result Date Time Temp 37.2 08/25 2334 Pulse 91 / 2334 Resp 18 08/25 2334 B/P 114/61 / 2339 B/P Mean 81 08/25 2339 Pulse Ox 97 08/25 2340Last Documented: Result Date Time Resp 17 08/26 0110 Pulse Ox 97 / 0100 B/P 119/58 / 0100 B/P Mean 82 / 0100 Pulse 83 / 0100 Temp 37.2 08/25 2334All vital signs available at the time of this entry have been reviewed.Condition StableClinical ImpressionClinical ImpressionPrimary Impression: Atrial fibrillation with RVRSecondary Impressions: NSTEMI (non-ST elevated myocardial infarction), RibfractureDisposition DecisionHospitalize Hosp Physician Name Isabella Mcakay MD [facility] Physician Hospitalist )( Accepted Time 023 )( Accepted Date 08/26/24 Call Information will see patient, agrees with eval, agrees with planDischarge/Care PlanCounseled Regarding Diagnosis, Lab results, Imaging studies, Need for admission(Auto) PrescriptionsCurrent Visit ScriptsamLODIPine (Norvasc) 10 MG PO DAILY 30 Days #30 TAB Ref 1clopidogreL (Plavix) 75 MG PO DAILY 30 Days #30 TAB Ref 4Apixaban (Eliquis) 5 MG PO BID 30 Days #60 TAB Ref 2Metoprolol Tartrate (Lopressor) 25 MG PO BID 30 Days #60 TAB Ref 3Isosorbide Mononitrate ER (Imdur) 30 MG PO BID 30 Days #60 TAB.ER.24H Ref 2ReferralsProvider Referral: Undefined Provider Admit NoteI have spoken with the patient and/or caregivers. I have explained the patient'scondition, diagnoses and treatment plan based on the information available to meat this time. I have answered the patient's and/or caregiver's questions andaddressed any concerns. The patient and/or caregivers have as good anunderstanding of the patient's diagnosis, condition and treatment plan as can beexpected at this point. [facility] The patient will be transported for further care andmanagement or will be moved to an observation or inpatient service. I havecommunicated with the staff or medical practitioner taking over this patient'scare.Critical CareTime Spent (minutes): 37Services Performed Patient management by meSeparately billable procedures excluded from time.Patient was critically ill due to:NSTEMI, AFib RVR CC Note 1Total critical care time [37] minutes. Total critical care time documented doesnot include time spent on separately billed procedures or the services ofresidents, students, nurses or physician assistants. I personally saw andexamined the patient. I have reviewed all diagnostic interpretations andtreatment plans as written. I was present for the martinez portions of any proceduresperformed and the inclusive time noted in any critical care statement. Criticalcare time includes patient management by me, time spent at the patients bedside,time to review lab and imaging results, discussing patient care, documentationin the medical record, and time spent with the family or caregiver. at 1523RPT#:[id number] OF REPORT Trina Salas MD-3-Feb-2024 [facility] ([facility])Hospitalist Discharge SummaryREPORT#:[id number] REPORT STATUS: SignedREPORT INITIALIZATION DATE:02/19/24 TIME: 1241PATIENT: RAMAN BERNAL UNIT #: [id number]#: [id number] [id number] AGE: 58 SEX: M ATTEND: Josue Mena MDADM AUTHOR: Josue Mena MDREPT SERVICE DT/TIME: 02/19/24 1241* ALL edits or amendments must be made on the electronic/computer document *General InformationProblem List/A P: 1. Acute alcoholic hepatitis 2. Chest pain 3. Chronic pain 4. HTN (hypertension) 5. HLD (hyperlipidemia)Discharge date: 02/19/24Discharge diagnosis:Alcohol withdrawal, resolvedHospital course:Mr. Bernal is a 58-year-old gentleman with a past medical history of priorCABG, diabetes hypertension hyperlipidemia as well as chronic back pain whopresented to the emergency department with ongoing epigastric pain after havingbeen out of his morphine that he had been prescribed by his pain specialist thelindat 2 weeks. He told the emergency department doctor when he ran out he didnot want to take it anymore and instead used alcohol on my report he said he didnot go because he did not have a ride. However he has been drinking heavily forthe last couple weeks and presenting the hospital with the abdominal pain backpain and found to have a significantly elevated bilirubin over 8 with an INR of1.6 and elevated transaminitis consistent with acute alcoholic hepatitis.Patient with scleral icterus. Patient will be admitted to the hospital formanagement of his acute alcoholic hepatitis.Patient went into florid alcohol withdrawal with hallucinations. He was treatedwith the alcohol withdrawal protocol and he gradually improved. He was able totransfer out of the IMU to the regular floor where he has continued to improve.He assures us he will not drink alcohol moving forward. He will discharge latertoday will arrange follow-up with his primary care provider.Free Text DxA P NotesFree text DxA P notes:58-year-old male with recent CABG, diabetes, hypertension, hyperlipidemia, andchronic pain who began drinking more than usual due to running out of [employer] (last filled December 18 per [employer]). He is admitted with elevated livertransaminases and hyperbilirubinemia concerning for possible acute alcoholichepatitis. He began to complain of chest pain. Troponins were trended andshowed a mild rise and fall, peak troponin level of 88. Cardiology wasconsulted.Med RecMed RecDischarge meds:Stop taking the following medications:CEPHALEXIN (KEFLEX) 250 MG CAP 250 MILLIGRAM ORALContinue taking these medications:IBUPROFEN (MOTRIN) 800 MG TAB 800 MILLIGRAM ORAL THREE TIMES DAILY NEEDED. as needed for PAIN Qty = 30LIDOCAINE (LIDODERM 5%) 5 % PATCH 1 PATCH TRANSDERMAL DAILY. as needed for Pain Qty = 30 Instructions: 12 hours on, then 12 hours off.methocarbamoL (ROBAXIN) 500 MG TAB 500 MILLIGRAM ORAL THREE TIMES DAILY NEEDED. as needed for Muscle Pain Qty = 30metFORMIN (metFORMIN) 500 MG TAB 500 MILLIGRAM ORAL TWICE DAILY. Instructions: TAKE WITH MEALSONDanestron (ZOFRAN ODT) 8 MG TAB.RAPDIS 8 MILLIGRAM ORAL EVERY 12 HR NEEDED. as needed for NAUSEA/VOMITING Qty = 15ATORVASTATIN (LIPITOR) 40 MG TAB 40 MILLIGRAM ORAL BEDTIME.LOSARTAN (COZAAR) 50 MG TAB 50 MILLIGRAM ORAL DAILY.carvediloL (carvediloL) 3.125 MG TAB 3.125 MILLIGRAM ORAL TWICE DAILY.ObjectiveHead/Eyes: abnl conjunctiva/sclera (icteric)Cardiovascular: normal capillary refill, normal heart sounds, regular raterhythmRespiratory: aerating well, clear to auscultation, symmetric expansionAbdomen: distended, tenderness, softExtremities: moves all, normal capillary refill, normal range of motionNeuro/AGRICULTURE MANAGER: Confused, less agitatedSkin: abnormal color (jaundiced), dry, intactDischarge InstructionsPCPDischarge to: Home/Self CareAdditional Discharge Routines: NoneDiet: Resume Home Diet/Feeds at 1513RPT #:[id number] OF REPORT Trina Salas MD-2-Feb-2024 [facility] ([facility])Hospitalist Progress NoteREPORT#:[id number] REPORT STATUS: SignedREPORT INITIALIZATION DATE:02/18/24 TIME: 1036PATIENT: RAMAN BERNAL UNIT #: [id number]#: [id number] [id number]: [address] AGE: 58 SEX: M ATTEND: Josue Mena MDADM AUTHOR: Josue Mena MDREPT SERVICE DT/TIME: 02/18/24 1036* ALL edits or amendments must be made on the electronic/computer document *SubjectiveChief complaint:Acute alcoholic hepatitisReview of SystemsFree Text ROS NotesFree Text ROS Notes:General: No fever or weight lossHEENT: No headache or visual changesCardiovascular: No chest pain diaphoresisRespiratory: No coughing wheezing or shortness of breathGI: No nausea vomiting diarrheaGU: No hematuria dysuriaNeurological: Less agitation today, no tremorEndocrine: No diabetes, no thyroid diseaseSkin: No laceration or ecchymosisObjectiveGeneralVS/I O:Vital Signs: Date Time Temp Pulse Resp B/P B/P Pulse O2 O2 Flow FiO2 Mean Ox Delivery Rate 02/17 1624 98.4 68 18 122/70 87.6 94 Room air 02/17 1111 98.6 74 18 128/69 88.8 99 Room air 02/17 0730 97.7 69 18 173/80 111.2 97 Room air 02/17 0322 97.9 64 18 143/82 102.4 100 Room air 02/16 2300 98.1 111 18 142/75 97.4 97 Room air 02/16 1915 98.8 70 17 134/73 93.2 97 Room air24 hour I O ending at 0700: 02/17 0700 12/01 1900 Intake Total Output Total 600 Balance -600 Output, Urine 600PATIENT WEIGHT:Weight (lb): 172Weight (oz): 9.95Weight (kg): 78.018Physical ExamHead/Eyes: abnl conjunctiva/sclera (icteric)Cardiovascular: normal capillary refill, normal heart sounds, regular raterhythmRespiratory: aerating well, clear to auscultation, symmetric expansionAbdomen: distended, tenderness, softExtremities: moves all, normal capillary refill, normal range of motionNeuro/AGRICULTURE MANAGER: Confused, less agitatedSkin: abnormal color (jaundiced), dry, intactResultsFindings/Data:Laboratory Tests 02/17 02/17 02/17 02/17 02/16 1624 1110 0731 0520 1914 Chemistry Sodium (136 - 145 mmol/L) 139 Potassium (3.4 - 5.1 mmol/L) 3.6 Chloride (98 - 107 mmol/L) 108 H Carbon Dioxide (20 - 31 mmol/L) 26.0 BUN (9 - 23 mg/dL) 12 Creatinine (0.70 - 1.3 mg/dL) 0.96 Estimated GFR (MDRD) (56 - 130) 91 Glucose (74 - 106 mg/dL) 153 H POC Glucose (65 - 99 MG/DL) 356 H 298 H 161 H 336 H Calcium (8.3 - 10.6 mg/dL) 8.2 L Total Bilirubin (0.20 - 1.10 mg/dL) 6.40 H AST (0 - 33 U/L) 1057 H ALT (10 - 49 U/L) 950 H Alkaline Phosphatase (46 - 116 U/L) 714 H Total Protein (5.7 - 8.2 g/dL) 4.7 L Albumin (3.4 - 5.0 g/dL) 2.1 L Globulin (1.5 - 3.8 G/DL) 2.6 Albumin/Globulin Ratio (1.1 - 2.2) 0.8 L Specimen Appearance (0 NEG Grade) 1+ Specimen Hemolysis (0 NEG Grade) NEGATIVELaboratory Tests 02/17 0520 Hematology WBC (4.80 - 10.80 x10 3/uL) 6.37 RBC (4.7 - 6.1 x10 6/uL) 3.57 L Hgb (14.0 - 17.0 G/DL) 11.3 L Hct (42 - 52 %) 33.3 L MCV (80 - 94 FL) 93.3 MCH (27 - 31 PG) 31.7 H MCHC (33 - 37 G/DL) 33.9 RDW Coeff of Carmenza (11.5 - 14.5 %) 18.6 H Plt Count (150 - 450 x10 3/uL) 122 L MPV (7.4 - 10.4 FL) 11.4 H Neut % (Auto) (42 - 86 %) 66.5 Lymph % (Auto) (24 - 44 %) 20.3 L Glasscock % (Auto) (0.0 - 4.0 %) 11.8 H Eos % (Auto) (0.0 - 2.7 %) 0.3 Baso % (Auto) (0.0 - 0.5 %) 0.0 Eos # (Auto) (0.0 - 0.5 x10 3/uL) 0.02 Baso # (Auto) (0.0 - 0.2 x10 3/uL) 0.00 Abs Immat Gran (auto) (0.00 - 0.03 x10 3/uL) 0.07 H Absolute Neuts (auto) (1.8 - 7.7 x10 3/uL) 4.24 Absolute Lymphs (auto) (1.0 - 4.8 x10 3/uL) 1.29 Absolute Monos (auto) (0.0 - 0.8 x10 3/uL) 0.75 Absolute Nucleated RBC (0.0 - 0.2 X10 3/uL) 0.0 Immature Gran % (0.0 - 2.0 %) 1.1 Nucleated RBC % (0.0 - 0.0 %) 0.0Diagnosis, Assessment PlanProblem List/A P: 1. Acute alcoholic hepatitis Patient mobilizing now with PT. Anticipate discharge tomorrow. 2. Chest pain Patient complaining of slight sternal chest pain with a history of CABG inAugust Case discussed with cardiology Elevated troponin with a peak of 88 Continue with medical management at present 3. Chronic pain Patient with history of chronic pain and is seeing a pain specialist per hisreport but he has been out of his morphine for couple of weeks. Will give someanalgesics for pain control while in the hospital. 4. HTN (hypertension) Will continue on home doses of Coreg and lisinopril 5. HLD (hyperlipidemia) Will continue on statinFree Text DxA P NotesFree text DxA P notes:58-year-old male with recent CABG, diabetes, hypertension, hyperlipidemia, andchronic pain who began drinking more than usual due to running out of hismorphine (last filled December 18 per [employer]). He is admitted with elevated livertransaminases and hyperbilirubinemia concerning for possible acute alcoholichepatitis. He began to complain of chest pain. Troponins were trended andshowed a mild rise and fall, peak troponin level of 88. Cardiology wasconsulted. at 1640RPT #:[id number] OF REPORT Trina Salas MD-1-Feb-2024 [facility] ([facility])Hospitalist Progress NoteREPORT#:[id number] REPORT STATUS: SignedREPORT INITIALIZATION DATE:02/17/24 TIME: 1302PATIENT: RAMAN BERNAL UNIT #: [id number]#: [id number] [address] AGE: 58 SEX: M ATTEND: Josue Mena MDADM AUTHOR: Josue Mena MDREPT SERVICE DT/TIME: 02/17/24 1302* ALL edits or amendments must be made on the electronic/computer document *SubjectiveChief complaint:Acute alcoholic hepatitisReview of SystemsFree Text ROS NotesFree Text ROS Notes:General: No fever or weight lossHEENT: No headache or visual changesCardiovascular: No chest pain diaphoresisRespiratory: No coughing wheezing or shortness of breathGI: No nausea vomiting diarrheaGU: No hematuria dysuriaNeurological: Less agitation today, no tremorEndocrine: No diabetes, no thyroid diseaseSkin: No laceration or ecchymosisObjectiveGeneralVS/I O:Vital Signs: Date Time Temp Pulse Resp B/P B/P Pulse O2 O2 Flow FiO2 Mean Ox Delivery Rate 02/16 1133 98.6 70 18 130/74 93.0 96 Room air 02/16 0741 98.8 82 18 166/87 113.6 96 Room air 02/16 0353 97.9 68 17 156/80 105.4 97 Room air 02/16 0007 62 152/80 104.4 99 Room air 02/16 0002 98.6 77 17 171/82 111.8 96 Room air 02/15 1921 97.9 68 18 131/68 88.8 98 Room air 02/15 1549 97.5 70 18 107/60 75.5 99 Room air24 hour I O ending at 0700: 02/16 0700 02/15 1900 Intake Total 600.00 Output Total 700 Balance -100.00 Intake, IV 300.00 Intake, Oral 300 Number Voids 1 Output, Urine 700PATIENT WEIGHT:Weight (lb): 172Weight (oz): 9.95Weight (kg): 78.300Physical ExamHead/Eyes: abnl conjunctiva/sclera (icteric)Cardiovascular: normal capillary refill, normal heart sounds, regular raterhythmRespiratory: aerating well, clear to auscultation, symmetric expansionAbdomen: distended, tenderness, softExtremities: moves all, normal capillary refill, normal range of motionNeuro/AGRICULTURE MANAGER: Confused, less agitatedSkin: abnormal color (jaundiced), dry, intactResultsFindings/Data:Laboratory Tests 02/16 02/16 02/15 02/15 1131 0738 1918 1548 Chemistry POC Glucose (65 - 99 MG/DL) 301 H 193 H 314 H 247 HDiagnosis, Assessment PlanProblem List/A P: 1. Acute alcoholic hepatitis Patient continues with improvement. Mobilizing as able. He is going to shower. 2. Chest pain Patient complaining of slight sternal chest pain with a history of CABG inAugust Case discussed with cardiology Elevated troponin with a peak of 88 Continue with medical management at present 3. Chronic pain Patient with history of chronic pain and is seeing a pain specialist per hisreport but he has been out of his morphine for couple of weeks. Will give someanalgesics for pain control while in the hospital. 4. HTN (hypertension) Will continue on home doses of Coreg and lisinopril 5. HLD (hyperlipidemia) Will continue on statinFree Text DxA P NotesFree text DxA P notes:58-year-old male with recent CABG, diabetes, hypertension, hyperlipidemia, andchronic pain who began drinking more than usual due to running out of hismorphine (last filled December 18 per [employer]). He is admitted with elevated livertransaminases and hyperbilirubinemia concerning for possible acute alcoholichepatitis. He began to complain of chest pain. Troponins were trended andshowed a mild rise and fall, peak troponin level of 88. Cardiology wasconsulted. at 1342RPT #:[id number] OF REPORT Trina Salas MD- 4 [facility] ([facility])Hospitalist Progress NoteREPORT#:[id number] REPORT STATUS: SignedREPORT INITIALIZATION DATE:02/16/24 TIME: 133PATIENT: RAMAN BERNAL UNIT #: [id number]#: [id number] [address] AGE: 58 SEX: M ATTEND: Josue Mena MDADM AUTHOR: Josue Mena MDREPT SERVICE DT/TIME: 02/16/24 1330* ALL edits or amendments must be made on the electronic/computer document *SubjectiveChief complaint:Acute alcoholic hepatitisReview of SystemsFree Text ROS NotesFree Text ROS Notes:General: No fever or weight lossHEENT: No headache or visual changesCardiovascular: No chest pain diaphoresisRespiratory: No coughing wheezing or shortness of breathGI: No nausea vomiting diarrheaGU: No hematuria dysuriaNeurological: Less agitation today, no tremorEndocrine: No diabetes, no thyroid diseaseSkin: No laceration or ecchymosisObjectiveGeneralVS/I O:Vital Signs: Date Time Temp Pulse Resp B/P B/P Pulse O2 O2 Flow FiO2 Mean Ox Delivery Rate 02/15 1549 97.5 70 18 107/60 75.5 99 Room air 02/15 1140 97.9 70 16 131/71 91.0 98 Room air 02/15 0825 97.7 74 16 141/77 98.5 99 Room air 02/15 0519 97.0 59 18 145/72 0.0 96 Room air 11/29 2139 98.1 68 18 138/67 90.4 99 Room air 02/14 2100 106 38 108/58 78 98 02/15 2000 65 14 109/59 80 98 02/14 1931 98.1 02/14 1930 98 Room air 02/14 1900 66 11 103/58 77 95 02/14 1800 74 23 118/58 78 98 02/14 1723 78 22 133/64 92 94 02/14 1630 98.324 hour I O ending at 0700: 02/15 0700 02/14 1900 Intake Total 775.00 Output Total Balance 775.00 Intake, IV 675.00 Intake, Oral 100 Number Voids 2PATIENT WEIGHT:Weight (lb): 172Weight (oz): 9.95Weight (kg): 78.300Physical ExamHead/Eyes: abnl conjunctiva/sclera (icteric)Cardiovascular: normal capillary refill, normal heart sounds, regular raterhythmRespiratory: aerating well, clear to auscultation, symmetric expansionAbdomen: distended, tenderness, softExtremities: moves all, normal capillary refill, normal range of motionNeuro/AGRICULTURE MANAGER: Confused, less agitatedSkin: abnormal color (jaundiced), dry, intactResultsFindings/Data:Laboratory Tests 02/15 02/15 02/15 02/14 02/14 1548 1305 0828 1933 1607 Chemistry POC Glucose (65 - 99 MG/DL) 247 H 169 H 162 H 249 H 327 HDiagnosis, Assessment PlanProblem List/A P: 1. Acute alcoholic hepatitis Patient continues to show improvement. He has downgraded from IMU. Mobilize as able, will consult with PT 2. Chest pain Patient complaining of slight sternal chest pain with a history of CABG inAugust Case discussed with cardiology Elevated troponin with a peak of 88 Continue with medical management at present 3. Chronic pain Patient with history of chronic pain and is seeing a pain specialist per hisreport but he has been out of his morphine for couple of weeks. Will give someanalgesics for pain control while in the hospital. 4. HTN (hypertension) Will continue on home doses of Coreg and lisinopril 5. HLD (hyperlipidemia) Will continue on statinFree Text DxA P NotesFree text DxA P notes:58-year-old male with recent CABG, diabetes, hypertension, hyperlipidemia, andchronic pain who began drinking more than usual due to running out of hismorphine (last filled December 18 per [employer]). He is admitted with elevated livertransaminases and hyperbilirubinemia concerning for possible acute alcoholichepatitis. He began to complain of chest pain. Troponins were trended andshowed a mild rise and fall, peak troponin level of 88. Cardiology wasconsulted. at 1559RPT #:[id number] OF REPORT Bar Crooks MD-15-Feb-2024 [facility] ([facility])Cardiology Progress NoteREPORT#:[id number] REPORT STATUS: SignedREPORT INITIALIZATION DATE:02/15/24 TIME: 2238PATIENT: RAMAN BERNAL UNIT #: [id number]#: [id number] [address] AGE: 58 SEX: M ATTEND: Josue Mena MDA AUTHOR: Valeriy Dinero MDREPT SERVICE DT/TIME: 02/15/242238* ALL edits or amendments must be made on the electronic/computer document *SubjectivePatient reports:Yes: complaints, confused.Free Text Subj NotesFree Text Subj Notes:Improving confusion and tachycardiaObjectiveGeneralVS/I O:24 hour I O ending at 0700: 02/14 0700 02/13 190 Intake Total 900.00 Output Total Balance 900.00 Intake, IV 900.00 Number 1 Bowel Movements Number 1 2 Incontinent Voids Number Voids 1Vital Signs: Date Time Temp Pulse Resp B/P B/P Pulse O2 O2 Flow FiO2 Mean Ox Delivery Rate 02/14 2139 36.7 68 18 138/67 90.4 99 Room air 02/14 2100 106 38 108/58 78 98 02/14 2000 65 14 109/59 80 98 02/14 1931 36.7 02/14 1930 98 Room air 02/14 1900 66 11 103/58 77 95 02/14 1800 74 23 118/58 78 98 02/14 1723 78 22 133/64 92 94 02/14 1630 36.8 02/14 1500 72 13 134/63 91 93 02/14 1400 81 24 102/57 76 97 02/14 1300 85 18 98/67 79 96 02/14 1200 72 15 146/69 98 97 02/14 1131 36.6 02/14 1100 70 13 129/61 88 91 02/14 1001 67 9 94/51 68 95 02/14 0945 98 Room air 02/14 0903 86 16 141/68 98 97 02/14 0800 80 112/87 96 96 02/14 0704 36.8 02/14 0700 86 18 108/59 79 94 02/14 0630 78 11 93 02/14 0500 81 33 97 02/14 0400 36.6 02/14 0307 77 13 143/71 99 95 02/14 0200 79 13 105/53 76 95 02/14 0101 83 14 106/53 75 98 02/14 0001 85 13 115/50 69 96 02/14 0000 36.7PATIENT WEIGHT:Weight (lb): 172Weight (oz): 9.95Weight (kg): 78.300Medications:Active Meds + DC'd Last 24 HrsSodium Chloride (NORMAL SALINE 500ML IV SOLUTION) 500 ML BOLUS IVCarvedilol (Coreg 12.5 mg Tablet) 12.5 MG Q12HR POFolic Acid (Folvite) 1 MG DAILY POMultivitamins (Tab-A-Everett Tablet) 1 TAB DAILY POLorazepam (ATIVAN 2MG/ML VIAL) 1 MG Q2H PRN PRN IVAtorvastatin Calcium (Lipitor 40 mg Tablet) 40 MG BEDTIME POThiamine HCl (Thiamine B-1) 100 MG BID POMorphine Sulfate (morphine SULFATE) 4 MG Q4H PRN PRN IVMorphine Sulfate (Morphine Sulfate Immediate-Release) 15 MG Q6H PRN PRN POFlumazenil (ROMAZICON) 0.2 MG ASDIR PRN IVLorazepam (Ativan 1 mg Tablet) 1 MG Q2H WA PRN POLorazepam (ATIVAN 2MG/ML VIAL) 2 MG Q2H WA PRN IVLosartan Potassium (Cozaar 50 mg Tablet) 50 MG DAILY POPrednisone (predniSONE 20 mg Tablet) 40 MG DAILY POInsulin Human Lispro (HumaLOG) MODERATE SLIDING SCALE INSULIN AC HS SUBQHydralazine HCl (APRESOLINE) 10 MG Q6H PRN PRN IVOndansetron HCl (Zofran 4 mg/2 mL Inj) 4 MG Q8H PRN PRN IVSodium Chloride (Sodium Chloride 0.9% 1,000 mL) 1,000 ML .[id number] IVDextrose (Glucose Tablet) 16 GM ASDIR PRN PODextrose/Water (DEXTROSE 50% 50ML SYRINGE) 12.5 GM ASDIR PRN IVPhysical ExamGeneral appearance: alert, awakeNeck: supple/no meningismus, no JVDCardiovascular: CV assessment: tachycardia, normal heart sounds, no gallop, no murmur, no rubRespiratory: clear to auscultation, no distressAbdomen: non- tender, normal bowel sounds, no distention, no guarding, no mass/organomegaly, no pulsatile mass, no reboundLower extremity: LE assessment: normal capillary refill, no edemaNeuro/AGRICULTURE MANAGER: disoriented, alertResultsFindings/Data:Laboratory Tests 02/14 02/14 02/14 02/14 02/14 1933 1607 1110 0734 0357Chemistry Sodium (136 - 145 mmol/L) 138 Potassium (3.4 - 5.1 mmol/L) 4.2 Chloride (98 - 107 mmol/L) 111 H Carbon Dioxide (20 - 31 mmol/L) 20.0 BUN (9 - 23 mg/dL) 16 Creatinine (0.70 - 1.3 mg/dL) 1.05 Estimated GFR (MDRD) (56 - 130) 82 Glucose (74 - 106 mg/dL) 250 H POC Glucose (65 - 99 MG/DL) 249 H 327 H 236 H 254 H Calcium (8.3 - 10.6 mg/dL) 8.3 Magnesium (1.6 - 2.6 mg/dL) 2.0 Total Bilirubin (0.20 - 1.10 mg/dL) 13.60 *H AST (0 - 33 U/L) 780 H ALT (10 - 49 U/L) 381 H Alkaline Phosphatase (46 - 116 U/L) 366 H Total Protein (5.7 - 8.2 g/dL) 4.2 L Albumin (3.4 - 5.0 g/dL) 2.2 L Globulin (1.5 - 3.8 G/DL) 2.0 Albumin/Globulin Ratio (1.1 - 2.2) 1.1 Specimen Appearance (0 NEG Grade) 2+ Specimen Hemolysis (0 NEG Grade) NEGATIVELaboratory Tests 02/14 0357 Hematology WBC (4.80 - 10.80 x10 3/uL) 7.00 RBC (4.7 - 6.1 x10 6/uL) 3.41 L Hgb (14.0 - 17.0 G/DL) 10.8 L Hct (42 - 52 %) 32.8 L MCV (80 - 94 FL) 96.2 H MCH (27 - 31 PG) 31.7 H MCHC (33 - 37 G/DL) 32.9 L RDW Coeff of Carmenza (11.5 - 14.5 %) 18.7 H Plt Count (150 - 450 x10 3/uL) 69 L MPV (7.4 - 10.4 FL) 11.1 H Neut % (Auto) (42 - 86 %) 85.6 Lymph % (Auto) (24 - 44 %) 8.3 L Glasscock % (Auto) (0.0 - 4.0 %) 5.0 H Eos % (Auto) (0.0 - 2.7 %) 0.1 Baso % (Auto) (0.0 - 0.5 %) 0.0 Eos # (Auto) (0.0 - 0.5 x10 3/uL) 0.01 Baso # (Auto) (0.0 - 0.2 x10 3/uL) 0.00 Abs Immat Gran (auto) (0.00 - 0.03 x10 3/uL) 0.07 H Absolute Neuts (auto) (1.8 - 7.7 x10 3/uL) 5.99 Absolute Lymphs (auto) (1.0 - 4.8 x10 3/uL) 0.58 L Absolute Monos (auto) (0.0 - 0.8 x10 3/uL) 0.35 Absolute Nucleated RBC (0.0 - 0.2 X10 3/uL) 0.0 Add Manual Diff (TECH REVIEW) SCAN PLT_RBC Immature Gran % (0.0 - 2.0 %) 1.0 Nucleated RBC % (0.0 - 0.0 %) 0.0 Platelet Estimate (NORMAL) Dec A Plt Morphology Comment (Normal) Variable Plt Size H RBC Morphology See Comment Anisocytosis 1+Laboratory Tests 02/14 357 Miscellaneous Miscellaneous Test CalledLaboratory Tests 02/14 0833 Urines Ur Spec Description Clean Catch Urine Color (YELLOW) Dark-Yellow Urine Appearance (CLEAR) CLEAR Urine pH (5.5 - 7.0) 6.5 Ur Specific [place] (1.001 - 1.035) 1.019 Urine Protein (NEGATIVE mg/dL) 20 Urine Glucose (UA) (NEGATIVE mg/dL) > 1000 H Urine Ketones (NEGATIVE mg/dL) 20 A Urine Blood 1+ Urine Nitrite (NEGATIVE) NEGATIVE Urine Bilirubin (NEGATIVE) 3+ A Urine Urobilinogen (NORMAL mg/dL) NORMAL Ur Leukocyte Esterase (NEGATIVE) NEGATIVE Urine Comment VOLUME 10-12 MLLaboratory Tests 02/14 357 Chemistry Magnesium (1.6 - 2.6 mg/dL) 2.0Echo results:The patient's echocardiographic images were reviewed: His ejection fraction isnormalized. Inferolateral segmental wall motion abnormality seen.Diagnosis, Assessment PlanFree Text DxA P NotesFree Text DxA P Notes:1. Shortness of breath: Likely multifactorial given the patient's chronicobstructive pulmonary disease and systolic heart failure history. Exam suggestsminimal if any volume overload. Treat each condition.Oonad-pz-[id number] diastolic heart failure.--ON THE CURRENT ECHO THE PATIENT EJECTION FRACTION SHOWS RECOVERY:NORMALIZED.THE PATIENT'S PRIOR EF WAS MODERATELY DEPRESSED. Cautious diuretic. Blood pressure control.Multivessel coronary artery disease.--Continue guideline-directed medical therapy. Current presentation is notsuggestive of acute coronary syndrome. Has had recent coronary artery bypasssurgery.Old myocardial infarction.--The patient had some myocardial infarction/fev-OJ-gvwrqvkax myocardialinfarction - in October Underwent bypass.--Continue guideline-directed medical therapy for myocardial infarction.Current beta claritza, aspirin, and statin therapy IF PATIENT'S STATIN THERAPYNEEDS TO BE WITHHELD IN THE SETTING OF PATIENT'S ACUTE HEPATIC INJURY PLEASEHOLD STATIN THERAPY IT IS OKAY WITH CARDIOLOGY SERVICE.Altered mental status/confusion Can be related to hepatic encephalopathy secondary to liver injury orwithdrawal. Monitor closely.Chronic obstructive pulmonary disease. Recommendation smoking cessation andnebulizer therapy.Alcoholic hepatitis. HIS MRCP REPORT REVIEWED: UNREMARKABLEThe patient's LFTs are significantly elevated. He admitsseasonal alcohol abuse. Recommend abstinence; Gastroenterology Service.Hypertension. MICHEAL inhibitor and beta claritza preferred.Hypercholesterolemia. For now, given the patient's elevated LFTs, it isreasonable to withhold the patient's statin therapy in the setting of acutehepatic injury. at 2242RPT #:[id number] OF REPORT Trina Salas MD- 4 [facility] ([facility])Hospitalist Progress NoteREPORT#:[id number] REPORT STATUS: SignedREPORT INITIALIZATION DATE:02/15/24 TIME: 1001PATIENT: RAMAN BERNAL UNIT #: [id number]#: [id number] [id number]: [address] AGE: 58 SEX: M ATTEND: Josue Mena MDADM AUTHOR: Josue Mena MDREPT SERVICE DT/TIME: 02/15/24 1002* ALL edits or amendments must be made on the electronic/computer document *SubjectiveChief complaint:Acute alcoholic hepatitisReview of SystemsFree Text ROS NotesFree Text ROS Notes:General: No fever or weight lossHEENT: No headache or visual changesCardiovascular: No chest pain diaphoresisRespiratory: No coughing wheezing or shortness of breathGI: No nausea vomiting diarrheaGU: No hematuria dysuriaNeurological: Less agitation today, no tremorEndocrine: No diabetes, no thyroid diseaseSkin: No laceration or ecchymosisObjectiveGeneralVS/I O:Vital Signs: Date Time Temp Pulse Resp B/P B/P Pulse O2 O2 Flow FiO2 Mean Ox Delivery Rate 02/14 1630 98.3 02/14 1131 97.8 02/14 1100 70 13 129/61 88 91 02/14 1001 67 9 94/51 68 95 02/14 0945 98 Room air 02/14 0903 86 16 141/68 98 97 02/14 0800 80 112/87 96 96 02/14 0704 98.2 02/14 0700 86 18 108/59 79 94 02/14 0630 78 11 93 02/14 0500 81 33 97 02/14 0400 97.9 02/14 0307 77 13 143/71 99 95 02/14 0200 79 13 105/53 76 95 02/14 0101 83 14 106/53 75 98 02/14 0001 85 13 115/50 69 96 02/14 0000 98.0 02/13 2100 77 15 97/51 71 95 02/13 2001 87 21 118/56 81 97 02/14 2000 98.2 02/13 1901 92 20 130/61 88 97 02/13 1850 98 Room air24 hour I O ending at 0700: 02/14 0700 02/13 1900 Intake Total 900.00 Output Total Balance 900.00 Intake, IV 900.00 Number 1 Bowel Movements Number 1 2 Incontinent Voids Number Voids 1PATIENT WEIGHT:Weight (lb): 172Weight (oz): 9.95Weight (kg): 78.300Physical ExamHead/Eyes: abnl conjunctiva/sclera (icteric)Cardiovascular: normal capillary refill, normal heart sounds, regular raterhythmRespiratory: aerating well, clear to auscultation, symmetric expansionAbdomen: distended, tenderness, softExtremities: moves all, normal capillary refill, normal range of motionNeuro/AGRICULTURE MANAGER: Confused, less agitatedSkin: abnormal color (jaundiced), dry, intactResultsFindings/Data:Laboratory Tests 02/14 02/14 02/14 02/14 02/13 1607 1110 0734 0357 2005 Chemistry Sodium (136 - 145 mmol/L) 138 Potassium (3.4 - 5.1 mmol/L) 4.2 Chloride (98 - 107 mmol/L) 111 H Carbon Dioxide (20 - 31 mmol/L) 20.0 BUN (9 - 23 mg/dL) 16 Creatinine (0.70 - 1.3 mg/dL) 1.05 Estimated GFR (MDRD) (56 - 130) 82 Glucose (74 - 106 mg/dL) 250 H POC Glucose (65 - 99 MG/DL) 327 H 236 H 254 H 168 H Calcium (8.3 - 10.6 mg/dL) 8.3 Magnesium (1.6 - 2.6 mg/dL) 2.0 Total Bilirubin (0.20 - 1.10 mg/dL) 13.60 *H AST (0 - 33 U/L) 780 H ALT (10 - 49 U/L) 381 H Alkaline Phosphatase (46 - 116 U/L) 366 H Total Protein (5.7 - 8.2 g/dL) 4.2 L Albumin (3.4 - 5.0 g/dL) 2.2 L Globulin (1.5 - 3.8 G/DL) 2.0 Albumin/Globulin Ratio (1.1 - 2.2) 1.1 Specimen Appearance (0 NEG Grade) 2+ Specimen Hemolysis (0 NEG Grade) NEGATIVELaboratory Tests 02/14 0357 Hematology WBC (4.80 - 10.80 x10 3/uL) 7.00 RBC (4.7 - 6.1 x10 6/uL) 3.41 L Hgb (14.0 - 17.0 G/DL) 10.8 L Hct (42 - 52 %) 32.8 L MCV (80 - 94 FL) 96.2 H MCH (27 - 31 PG) 31.7 H MCHC (33 - 37 G/DL) 32.9 L RDW Coeff of Carmenza (11.5 - 14.5 %) 18.7 H Plt Count (150 - 450 x10 3/uL) 69 L MPV (7.4 - 10.4 FL) 11.1 H Neut % (Auto) (42 - 86 %) 85.6 Lymph % (Auto) (24 - 44 %) 8.3 L Glasscock % (Auto) (0.0 - 4.0 %) 5.0 H Eos % (Auto) (0.0 - 2.7 %) 0.1 Baso % (Auto) (0.0 - 0.5 %) 0.0 Eos # (Auto) (0.0 - 0.5 x10 3/uL) 0.01 Baso # (Auto) (0.0 - 0.2 x10 3/uL) 0.00 Abs Immat Gran (auto) (0.00 - 0.03 x10 3/uL) 0.07 H Absolute Neuts (auto) (1.8 - 7.7 x10 3/uL) 5.99 Absolute Lymphs (auto) (1.0 - 4.8 x10 3/uL) 0.58 L Absolute Monos (auto) (0.0 - 0.8 x10 3/uL) 0.35 Absolute Nucleated RBC (0.0 - 0.2 X10 3/uL) 0.0 Add Manual Diff (TECH REVIEW) SCAN PLT_RBC Immature Gran % (0.0 - 2.0 %) 1.0 Nucleated RBC % (0.0 - 0.0 %) 0.0 Platelet Estimate (NORMAL) Dec A Plt Morphology Comment (Normal) Variable Plt Size H RBC Morphology See Comment Anisocytosis 1+Laboratory Tests 02/14 0357 Miscellaneous Miscellaneous Test CalledLaboratory Tests 02/14 0833 Urines Ur Spec Description Clean Catch Urine Color (YELLOW) Dark-Yellow Urine Appearance (CLEAR) CLEAR Urine pH (5.5 - 7.0) 6.5 Ur Specific [place] (1.001 - 1.035) 1.019 Urine Protein (NEGATIVE mg/dL) 20 Urine Glucose (UA) (NEGATIVE mg/dL) > 1000 H Urine Ketones (NEGATIVE mg/dL) 20 A Urine Blood 1+ Urine Nitrite (NEGATIVE) NEGATIVE Urine Bilirubin (NEGATIVE) 3+ A Urine Urobilinogen (NORMAL mg/dL) NORMAL Ur Leukocyte Esterase (NEGATIVE) NEGATIVE Urine Comment VOLUME 10-12 MLDiagnosis, Assessment PlanProblem List/A P: 1. Acute alcoholic hepatitis Patient is showing daily improvement with his withdrawal. He is less agitated today. His tachycardia has also improved. 2. Chest pain Patient complaining of slight sternal chest pain with a history of CABG inAugust Case discussed with cardiology Elevated troponin with a peak of 88 Continue with medical management at present 3. Chronic pain Patient with history of chronic pain and is seeing a pain specialist per hisreport but he has been out of his morphine for couple of weeks. Will give someanalgesics for pain control while in the hospital. 4. HTN (hypertension) Will continue on home doses of Coreg and lisinopril 5. HLD (hyperlipidemia) Will continue on statinFree Text DxA P NotesFree text DxA P notes:58-year-old male with recent CABG, diabetes, hypertension, hyperlipidemia, andchronic pain who began drinking more than usual due to running out of [email or web address] (last filled December 18 per [employer]). He is admitted with elevated livertransaminases and hyperbilirubinemia concerning for possible acute alcoholichepatitis. He began to complain of chest pain. Troponins were trended andshowed a mild rise and fall, peak troponin level of 88. Cardiology wasconsulted. at 1748RPT #:[id number] OF REPORT Bar Crooks MD-14-Feb-2024 [facility] ([facility])Cardiology Progress NoteREPORT#:[id number] REPORT STATUS: SignedREPORT INITIALIZATION DATE:02/14/24 TIME: 1630PATIENT: RAMAN BERNAL UNIT #: [id number]#: [id number] [address] AGE: 58 SEX: M ATTEND: Josue Mena MDADM AUTHOR: Valeriy Dinero MDREPT SERVICE DT/TIME: 02/14/24 1630* ALL edits or amendments must be made on the electronic/computer document *SubjectivePatient reports:No: complaints.Free Text Subj NotesFree Text Subj Notes:Patient is confused apparently withdrawing his sinus tachycardiaObjectiveGeneralVS/I O:24 hour I O ending at 0700: 02/13 0700 02/12 1900 Intake Total Output Total 300 Balance -300 Output, Urine 300Vital Signs: Date Time Temp Pulse Resp B/P B/P Pulse O2 O2 Flow FiO2 Mean Ox Delivery Rate 02/13 1400 94 105/56 74 95 02/13 1300 118/86 99 02/13 1300 134 15 95 02/13 1212 140 20 115/69 83 94 02/13 1132 36.7 02/13 1100 135 123/66 88 94 02/13 1001 141 20 124/72 92 95 02/13 0900 107 20 106/65 78 93 02/13 0819 36.6 02/13 0801 115 16 123/56 80 95 02/13 0800 36.7 02/13 0700 103 16 172/91 125 95 02/13 0600 100 26 170/79 113 93 02/13 0544 36.6 02/13 0507 100 20 155/77 110 96 02/13 0400 BiPAP 02/13 0400 71 14 105/59 77 97 02/13 0300 143 19 164/100 125 96 02/13 0200 137 38 155/96 117 92 02/13 0100 134 14 128/76 93 87 02/13 0023 109 28 96 02/13 0000 128/81 99 95 02/12 2334 36.8 02/12 2334 36.8 02/12 2300 98 20 147/77 106 94 02/12 2230 106 22 163/89 117 93 02/12 2100 100 22 144/76 100 94 02/12 2021 36.9 02/13 2000 96 16 142/76 103 94 02/12 1900 102 18 134/88 107 94 02/12 1639 36.8PATIENT WEIGHT:Weight (lb): 172Weight (oz): 9.95Weight (kg): 78.300Medications:Active Meds + DC'd Last 24 HrsSodium Chloride (NORMAL SALINE 500ML IV SOLUTION) 500 ML BOLUS IVCarvedilol (Coreg 12.5 mg Tablet) 12.5 MG Q12HR POFolic Acid (Folvite) 1 MG DAILY POMultivitamins (Tab-A-Everett Tablet) 1 TAB DAILY POLorazepam (ATIVAN 2MG/ML VIAL) 1 MG Q2H PRN PRN IVAtorvastatin Calcium (Lipitor 40 mg Tablet) 40 MG BEDTIME POThiamine HCl (Thiamine B-1) 100 MG BID POMorphine Sulfate (morphine SULFATE) 4 MG Q4H PRN PRN IVMorphine Sulfate (Morphine Sulfate Immediate- Release) 15 MG Q6H PRN PRN POFlumazenil (ROMAZICON) 0.2 MG ASDIR PRN IVLorazepam (Ativan 1 mg Tablet) 1 MG Q2H WA PRN POLorazepam (ATIVAN 2MG/ML VIAL) 2 MG Q2H WA PRN IVLosartan Potassium (Cozaar 50 mg Tablet) 50 MG DAILY POPrednisone (predniSONE 20 mg Tablet) 40 MG DAILY POInsulin Human Lispro (HumaLOG) MODERATE SLIDING SCALE INSULIN AC HS SUBQHydralazine HCl (APRESOLINE) 10 MG Q6H PRN PRN IVOndansetron HCl (Zofran 4 mg/2 mL Inj) 4 MG Q8H PRN PRN IVSodium Chloride (Sodium Chloride 0.9% 1,000 mL) 1,000 ML .[id number] IVDextrose (Glucose Tablet) 16 GM ASDIR PRN PODextrose/Water (DEXTROSE 50% 50ML SYRINGE) 12.5 GM ASDIR PRN IVPhysical ExamGeneral appearance: altered mental status, confused, alert, awakeNeck: supple/no meningismus, no JVDCardiovascular: CV assessment: tachycardia, normal heart sounds, no gallop, no murmur, no rubRespiratory: clear to auscultation, no distressAbdomen: non-tender, normal bowel sounds, no distention, no guarding, no mass/organomegaly, no pulsatile mass, no reboundLower extremity: LE assessment: normal capillary refill, no edemaNeuro/AGRICULTURE MANAGER: disoriented, alertResultsFindings/Data:Laboratory Tests 02/13 02/13 02/13 02/13 02/13 1603 1115 0736 0602 0430 Chemistry Sodium (136 - 145 mmol/L) 138 Potassium (3.4 - 5.1 mmol/L) 3.8 Chloride (98 - 107 mmol/L) 109 H Carbon Dioxide (20 - 31 mmol/L) 21.0 BUN (9 - 23 mg/dL) 15 Creatinine (0.70 - 1.3 mg/dL) 1.10 Estimated GFR (MDRD) (56 - 130) 77 Glucose (74 - 106 mg/dL) 121 H POC Glucose (65 - 99 MG/DL) 215 H 138 H 153 H 140 H Calcium (8.3 - 10.6 mg/dL) 7.9 L Magnesium (1.6 - 2.6 mg/dL) 1.8 Total Bilirubin (0.20 - 1.10 mg/dL) 13.70 *H AST (0 - 33 U/L) 380 H ALT (10 - 49 U/L) 228 H Alkaline Phosphatase (46 - 116 U/L) 273 H Total Protein (5.7 - 8.2 g/dL) 4.2 L Albumin (3.4 - 5.0 g/dL) 2.3 L Globulin (1.5 - 3.8 G/DL) 1.9 Albumin/Globulin Ratio (1.1 - 2.2) 1.2 Specimen Appearance (0 NEG Grade) 2+ Specimen Hemolysis (0 NEG Grade) NEGATIVE 02/13 1932 Chemistry POC Glucose (65 - 99 MG/DL) 242 HLaboratory Tests 02/13 0430 Hematology WBC (4.80 - 10.80 x10 3/uL) 7.61 RBC (4.7 - 6.1 x10 6/uL) 3.36 L Hgb (14.0 - 17.0 G/DL) 10.5 L Hct (42 - 52 %) 32.2 L MCV (80 - 94 FL) 95.8 H MCH (27 - 31 PG) 31.3 H MCHC (33 - 37 G/DL) 32.6 L RDW Coeff of Carmenza (11.5 - 14.5 %) 18.4 H Plt Count (150 - 450 x10 3/uL) 59 L MPV (7.4 - 10.4 FL) 11.0 H Neut % (Auto) (42 - 86 %) 89.9 H Lymph % (Auto) (24 - 44 %) 6.3 L Glasscock % (Auto) (0.0 - 4.0 %) 3.0 Eos % (Auto) (0.0 - 2.7 %) 0.0 Baso % (Auto) (0.0 - 0.5 %) 0.0 Eos # (Auto) (0.0 - 0.5 x10 3/uL) 0.00 Baso # (Auto) (0.0 - 0.2 x10 3/uL) 0.00 Abs Immat Gran (auto) (0.00 - 0.03 x10 3/uL) 0.06 H Absolute Neuts (auto) (1.8 - 7.7 x10 3/uL) 6.84 Absolute Lymphs (auto) (1.0 - 4.8 x10 3/uL) 0.48 L Absolute Monos (auto) (0.0 - 0.8 x10 3/uL) 0.23 Absolute Nucleated RBC (0.0 - 0.2 X10 3/uL) 0.0 Add Manual Diff (TECH REVIEW) SCAN PLT_RBC Immature Gran % (0.0 - 2.0 %) 0.8 Nucleated RBC % (0.0 - 0.0 %) 0.0 Platelet Estimate (NORMAL) Dec A Anisocytosis 1+ Macrocytosis OccLaboratory Tests 02/13 430 Miscellaneous Miscellaneous Test CalledLaboratory Tests 02/13 430 Chemistry Magnesium (1.6 - 2.6 mg/dL) 1.8Diagnosis, Assessment PlanFree Text DxA P NotesFree Text DxA P Notes:1. Shortness of breath: Likely multifactorial given the patient's chronicobstructive pulmonary disease and systolic heart failure history. Exam suggestsminimal if any volume overload. Treat each condition.Hvgtq-kr-tzpasqe systolic heart failure.--The patient's prior EF was moderately depressed. REPEAT ECHOGRAM PENDING HIS PROBNP IS ELEVATED-CONTINUE GUIDELINE-DIRECTED MEDICAL THERAPY WITH MICHEAL INHIBITOR, BETA-BLOCKERAND DIURETIC THERAPY. HE STATES HE WAS NOT ON LASIX PENDING EF. LASIX NEED LINDA STARTED. CAUTIOUS DIURETIC GIVEN ACUTE HEPATIC INJURY: LIKELY AT THIS STAGEP.O. LASIX REGIMEN IS SUFFICIENT.SINUS TACHYCARDIA LIKELY TO THE PATIENT'S ALCOHOL GROIN CARVEDILOL DOSE INCREASED STILL PATIENT TACHYCARDIC. AT THIS TIME I WILL NOTINCREASE FURTHER PATIENT'S CARVEDILOL SECONDARY TO MARGINAL BLOOD PRESSURE.SINUS TACHYCARDIA SHOULD IMPROVE AFTER HIS WITHDRAWAL STATUS.Multivessel coronary artery disease.--Continue guideline-directed medical therapy. Current presentation is notsuggestive of acute coronary syndrome. Has had recent coronary artery bypasssurgery. BETA-CLARITZA DOSE INCREASEDOld myocardial infarction.--The patient had some myocardial infarction/isj-ZQ-kzdeesivf myocardialinfarction - in October Underwent bypass.--Continue guideline-directed medical therapy for myocardial infarction.Current beta claritza, aspirin, and statin therapy IF PATIENT'S STATIN THERAPYNEEDS TO BE WITHHELD IN THE SETTING OF PATIENT'S ACUTE HEPATIC INJURY PLEASEHOLD STATIN THERAPY IT IS OKAY WITH CARDIOLOGY SERVICE.Altered mental status/confusion Can be related to hepatic encephalopathy secondary to liver injury orwithdrawal. Monitor closely.Chronic obstructive pulmonary disease. Recommendation smoking cessation andnebulizer therapy.Alcoholic hepatitis. The patient's LFTs are significantly elevated. He admitsseasonal alcohol abuse. Recommend abstinence; Gastroenterology Service.Hypertension. MICHEAL inhibitor and beta claritza preferred.Hypercholesterolemia. For now, given the patient's elevated LFTs, it isreasonable to withhold the patient's statin therapy in the setting of acutehepatic injury. at 1632RPT #:[id number] OF REPORT Trina Salas MD- 4 [facility] ([facility])Hospitalist Progress NoteREPORT#:[id number] REPORT STATUS: SignedREPORT INITIALIZATION DATE:02/14/24 TIME: 823PATIENT: RAMAN BERNAL UNIT #: [id number]#: [id number] [id number] AGE: 58 SEX: M ATTEND: Josue Mena MDADM AUTHOR: Josue Mena MDREPT SERVICE DT/TIME: 02/14/24 0824* ALL edits or amendments must be made on the electronic/computer document *SubjectiveChief complaint:Acute alcoholic hepatitisReview of SystemsFree Text ROS NotesFree Text ROS Notes:General: No fever or weight lossHEENT: No headache or visual changesCardiovascular: No chest pain diaphoresisRespiratory: No coughing wheezing or shortness of breathGI: No nausea vomiting diarrheaGU: No hematuria dysuriaNeurological: Less agitation today, no tremorEndocrine: No diabetes, no thyroid diseaseSkin: No laceration or ecchymosisObjectiveGeneralVS/I O:Vital Signs: Date Time Temp Pulse Resp B/P B/P Pulse O2 O2 Flow FiO2 Mean Ox Delivery Rate 02/13 1132 98.1 02/13 0900 107 20 106/65 78 93 02/13 0819 97.8 02/13 0801 115 16 123/56 80 95 02/13 0800 98.1 02/13 0700 103 16 172/91 125 95 02/13 0600 100 26 170/79 113 93 02/13 0544 97.8 02/13 0507 100 20 155/77 110 96 02/13 0400 BiPAP 02/13 0400 71 14 105/59 77 97 02/13 0300 143 19 164/100 125 96 02/13 0200 137 38 155/96 117 92 02/13 0100 134 14 128/76 93 87 02/13 0023 109 28 96 02/13 0000 128/81 99 95 02/12 2334 98.3 02/12 2334 98.3 02/12 2300 98 20 147/77 106 94 02/12 2230 106 22 163/89 117 93 02/12 2100 100 22 144/76 100 94 02/12 2021 98.4 02/12 2000 96 16 142/76 103 94 02/12 1900 102 18 134/88 107 94 02/12 1639 98.3 02/12 1400 104 17 166/78 111 89 02/12 1300 93 18 140/70 97 95 02/12 1214 98.1 02/12 1201 136/70 95 9724 hour I O ending at 0700: 02/13 0700 02/12 1900 Intake Total Output Total 300 Balance -300 Output, Urine 300PATIENT WEIGHT:Weight (lb): 172Weight (oz): 9.95Weight (kg): 78.300Physical ExamHead/Eyes: abnl conjunctiva/sclera (icteric)Cardiovascular: normal capillary refill, normal heart sounds, regular raterhythmRespiratory: aerating well, clear to auscultation, symmetric expansionAbdomen: distended, tenderness, softExtremities: moves all, normal capillary refill, normal range of motionNeuro/AGRICULTURE MANAGER: Confused, less agitatedSkin: abnormal color (jaundiced), dry, intactResultsFindings/Data:Laboratory Tests 02/13 02/13 02/13 02/13 02/12 1115 0736 0602 0430 1932 Chemistry Sodium (136 - 145 mmol/L) 138 Potassium (3.4 - 5.1 mmol/L) 3.8 Chloride (98 - 107 mmol/L) 109 H Carbon Dioxide (20 - 31 mmol/L) 21.0 BUN (9 - 23 mg/dL) 15 Creatinine (0.70 - 1.3 mg/dL) 1.10 Estimated GFR (MDRD) (56 - 130) 77 Glucose (74 - 106 mg/dL) 121 H POC Glucose (65 - 99 MG/DL) 138 H 153 H 140 H 242 H Calcium (8.3 - 10.6 mg/dL) 7.9 L Magnesium (1.6 - 2.6 mg/dL) 1.8 Total Bilirubin (0.20 - 1.10 mg/dL) 13.70 *H AST (0 - 33 U/L) 380 H ALT (10 - 49 U/L) 228 H Alkaline Phosphatase (46 - 116 U/L) 273 H Total Protein (5.7 - 8.2 g/dL) 4.2 L Albumin (3.4 - 5.0 g/dL) 2.3 L Globulin (1.5 - 3.8 G/DL) 1.9 Albumin/Globulin Ratio (1.1 - 2.2) 1.2 Specimen Appearance (0 NEG Grade) 2+ Specimen Hemolysis (0 NEG Grade) NEGATIVE 02/12 02/12 1604 1202 Chemistry POC Glucose (65 - 99 MG/DL) 183 H 67Laboratory Tests 02/13 0430 Hematology WBC (4.80 - 10.80 x10 3/uL) 7.61 RBC (4.7 - 6.1 x10 6/uL) 3.36 L Hgb (14.0 - 17.0 G/DL) 10.5 L Hct (42 - 52 %) 32.2 L MCV (80 - 94 FL) 95.8 H MCH (27 - 31 PG) 31.3 H MCHC (33 - 37 G/DL) 32.6 L RDW Coeff of Carmenza (11.5 - 14.5 %) 18.4 H Plt Count (150 - 450 x10 3/uL) 59 L MPV (7.4 - 10.4 FL) 11.0 H Add Manual Diff (TECH REVIEW) SCAN PLT_RBCLaboratory Tests 02/13 0430 Miscellaneous Miscellaneous Test CalledDiagnosis, Assessment PlanProblem List/A P: 1. Acute alcoholic hepatitis Continuing alcohol withdrawal protocol. Patient is less symptomatic today. Will also follow tachycardia. 2. Chest pain Patient complaining of slight sternal chest pain with a history of CABG inAugust Case discussed with cardiology Elevated troponin with a peak of 88 Continue with medical management at present 3. Chronic pain Patient with history of chronic pain and is seeing a pain specialist per hisreport but he has been out of his morphine for couple of weeks. Will give someanalgesics for pain control while in the hospital. 4. HTN (hypertension) Will continue on home doses of Coreg and lisinopril 5. HLD (hyperlipidemia) Will continue on statinFree Text DxA P NotesFree text DxA P notes:58-year-old male with recent CABG, diabetes, hypertension, hyperlipidemia, andchronic pain who began drinking more than usual due to running out of hisAkoha (last filled December 18 per [employer]). He is admitted with elevated livertransaminases and hyperbilirubinemia concerning for possible acute alcoholichepatitis. He began to complain of chest pain. Troponins were trended andshowed a mild rise and fall, peak troponin level of 88. Cardiology wasconsulted. at 1151RPT #:[id number] OF REPORT Bar Crooks MD-13-Feb-2024 [facility] ([facility])Cardiology Progress NoteREPORT#:[id number] REPORT STATUS: SignedREPORT INITIALIZATION DATE:02/13/24 TIME: 1310PATIENT: RAMAN BERNAL UNIT #: [id number]#: [id number] [address] [birth year] AGE: 58 SEX: M ATTEND: Josue Mena MDADM AUTHOR: Valeriy Dinero MDREPT SERVICE DT/TIME: 02/13/24 1310* ALL edits or amendments must be made on the electronic/computer document *SubjectivePatient reports:No: complaints.Nursing reports:Yes: complaints, confused.Free Text Subj NotesFree Text Subj Notes:Patient is confused he is with a sitter. He is awake however answers questionsand want to wear sentences. Has had MRCP earlier today.ObjectiveGeneralVS/I O:24 hour I O ending at 0700: 02/12 0700 02/11 1900 Intake Total Output Total 250 800 Balance -250 -800 Number 1 Bowel Movements Number Voids 1 Output, Urine 250 800 Patient 78.3 kg Weight Weight Standing scale Measurement MethodVital Signs: Date Time Temp Pulse Resp B/P B/P Pulse O2 O2 Flow FiO2 Mean Ox Delivery Rate 02/12 1214 36.7 02/12 0808 36.8 02/12 0701 92 161/83 115 92 02/12 0700 95 33 90 02/12 0600 121/61 84 90 02/12 0530 87 12 95 02/12 0509 87 11 138/67 96 95 02/12 0443 37.1 02/12 0433 89 19 181/96 129 96 02/12 0400 85 24 173/86 123 96 02/12 0301 83 17 154/89 117 96 02/12 0200 81 33 141/75 101 96 02/12 0100 76 15 155/80 111 97 02/12 0045 36.8 02/12 0011 85 23 148/70 102 98 02/11 2300 85 17 151/74 102 97 02/11 2206 82 23 171/83 119 98 11/26 2113 36.9 02/11 2100 79 18 153/76 107 96 02/11 2000 95 27 150/81 106 02/11 1900 84 19 150/85 111 94 02/11 1807 82 02/11 1800 84 25 132/76 95 96 02/11 1751 89 13 137/75 97 97 02/11 1700 87 22 158/91 119 98 02/11 1656 36.8 02/11 1600 77 14 145/75 102 94 02/11 1500 92 29 118/74 91 98 02/11 1400 74 15 112/62 81 95PATIENT WEIGHT:Weight (lb): 172Weight (oz): 9.95Weight (kg): 78.300Medications:Active Meds + DC'd Last 24 HrsCarvedilol (Coreg 12.5 mg Tablet) 12.5 MG Q12HR POFolic Acid (Folvite) 1 MG DAILY POMultivitamins (Tab-A-Everett Tablet) 1 TAB DAILY POLorazepam (ATIVAN 2MG/ML VIAL) 1 MG Q2H WA PRN IV (CAN)Lorazepam (ATIVAN 2MG/ML VIAL) 2 MG Q2H WA PRN IV (CAN)Lorazepam (ATIVAN 2MG/ML VIAL) 1 MG Q2H PRN PRN IVLorazepam (ATIVAN 2MG/ML VIAL) 1 MG ONCE ONE IV (DC)Atorvastatin Calcium (Lipitor 40 mg Tablet) 40 MG BEDTIME POThiamine HCl (Thiamine B-1) 100 MG BID POMorphine Sulfate (morphine SULFATE) 4 MG Q4H PRN PRN IVPotassium Chloride (K-Dur 20 mEq Tablet) 40 MEQ ONCE ONE PO (DC)Magnesium Sulfate (MAGNESIUM SULFATE 2 GM/WATER 50ML) 50 ML Q2H IV (DC)Morphine Sulfate (Morphine Sulfate Immediate-Release) 15 MG Q6H PRN PRN POFlumazenil (ROMAZICON) 0.2 MG ASDIR PRN IVLorazepam (Ativan 1 mg Tablet) 1 MG Q2H WA PRN POLorazepam (ATIVAN 2MG/ML VIAL) 2 MG Q2H WA PRN IVCarvedilol (Coreg 3.125 mg Tablet) 3.125 MG Q12HR PO (DC)Losartan Potassium (Cozaar 50 mg Tablet) 50 MG DAILY POPrednisone (predniSONE 20 mg Tablet) 40 MG DAILY POInsulin Human Lispro (HumaLOG) MODERATE SLIDING SCALE INSULIN AC HS SUBQAcetaminophen (TYLENOL 325MG TABLET) 650 MG Q4H PRN PRN PO (DC)Hydralazine HCl (APRESOLINE) 10 MG Q6H PRN PRN IVOndansetron HCl (Zofran 4 mg/2 mL Inj) 4 MG Q8H PRN PRN IVSodium Chloride (Sodium Chloride 0.9% 1,000 mL) 1,000 ML .[id number] IVDextrose (Glucose Tablet) 16 GM ASDIR PRN PODextrose/Water (DEXTROSE 50% 50ML SYRINGE) 12.5 GM ASDIR PRN IVPhysical ExamGeneral appearance: altered mental status, confused, alert, awakeNeck: supple/no meningismus, no JVDCardiovascular: CV assessment: regular rate and rhythm, normal heart sounds, no gallop, nomurmur, no rubRespiratory: clear to auscultation, no distressAbdomen: non-tender, normal bowel sounds, no distention, no guarding, no mass/organomegaly, no pulsatile mass, no reboundLower extremity: LE assessment: normal capillary refill, no edemaNeuro/AGRICULTURE MANAGER: disoriented, alertResultsFindings/Data:Laboratory Tests 02/12 02/12 02/12 02/12 02/11 1202 [id number] 2000 Chemistry Sodium (136 - 145 mmol/L) 133 L Potassium (3.4 - 5.1 mmol/L) 4.0 Chloride (98 - 107 mmol/L) 105 Carbon Dioxide (20 - 31 mmol/L) 22.0 BUN (9 - 23 mg/dL) 16 Creatinine (0.70 - 1.3 mg/dL) 1.36 H Estimated GFR (MDRD) (56 - 130) 60 Glucose (74 - 106 mg/dL) 214 H POC Glucose (65 - 99 MG/DL) 67 269 H 273 H 334 H Calcium (8.3 - 10.6 mg/dL) 8.3 Magnesium (1.6 - 2.6 mg/dL) 2.0 Total Bilirubin (0.20 - 1.10 mg/dL) 11.50 *H AST (0 - 33 U/L) 371 H ALT (10 - 49 U/L) 266 H Alkaline Phosphatase (46 - 116 U/L) 323 H NT-Pro-B Natriuret Pep (0 - 299 pg/mL) 1385 H Total Protein (5.7 - 8.2 g/dL) 5.1 L Albumin (3.4 - 5.0 g/dL) 2.6 L Globulin (1.5 - 3.8 G/DL) 2.5 Albumin/Globulin Ratio (1.1 - 2.2) 1.0 L Specimen Appearance (0 NEG Grade) 2+ Specimen Hemolysis (0 NEG Grade) 1+ 02/11 02/11 1621 1505 Chemistry Potassium (3.4 - 5.1 mmol/L) 3.4 POC Glucose (65 - 99 MG/DL) 192 H Magnesium (1.6 - 2.6 mg/dL) 2.6 Total Bilirubin (0.20 - 1.10 mg/dL) 10.70 *H Direct Bilirubin (0.1 - 0.3 mg/dL) 7.4 H Indirect Bilirubin (0.0 - 0.7 MG/DL) 3.3 H AST (0 - 33 U/L) 403 H ALT (10 - 49 U/L) 301 H Alkaline Phosphatase (46 - 116 U/L) 346 H Total Protein (5.7 - 8.2 g/dL) 5.4 L Albumin (3.4 - 5.0 g/dL) 2.7 L Globulin (1.5 - 3.8 G/DL) 2.7 Albumin/Globulin Ratio (1.1 - 2.2) 1.0 L Specimen Appearance (0 NEG Grade) 2+ Specimen Hemolysis (0 NEG Grade) 1+Laboratory Tests 02/12 0543 Hematology WBC (4.80 - 10.80 x10 3/uL) 10.84 H RBC (4.7 - 6.1 x10 6/uL) 4.05 L Hgb (14.0 - 17.0 G/DL) 12.8 L Hct (42 - 52 %) 37.6 L MCV (80 - 94 FL) 92.8 MCH (27 - 31 PG) 31.6 H MCHC (33 - 37 G/DL) 34.0 RDW Coeff of Carmenza (11.5 - 14.5 %) 18.5 H Plt Count (150 - 450 x10 3/uL) 79 L MPV (7.4 - 10.4 FL) 11.1 H Neut % (Auto) (42 - 86 %) 81.6 Lymph % (Auto) (24 - 44 %) 10.0 L Glasscock % (Auto) (0.0 - 4.0 %) 7.3 H Eos % (Auto) (0.0 - 2.7 %) 0.0 Baso % (Auto) (0.0 - 0.5 %) 0.2 Eos # (Auto) (0.0 - 0.5 x10 3/uL) 0.00 Baso # (Auto) (0.0 - 0.2 x10 3/uL) 0.02 Abs Immat Gran (auto) (0.00 - 0.03 x10 3/uL) 0.10 H Absolute Neuts (auto) (1.8 - 7.7 x10 3/uL) 8.85 H Absolute Lymphs (auto) (1.0 - 4.8 x10 3/uL) 1.08 Absolute Monos (auto) (0.0 - 0.8 x10 3/uL) 0.79 Absolute Nucleated RBC (0.0 - 0.2 X10 3/uL) 0.0 Add Manual Diff (TECH REVIEW) SCAN PLT_RBC Immature Gran % (0.0 - 2.0 %) 0.9 Nucleated RBC % (0.0 - 0.0 %) 0.0 Platelet Estimate (NORMAL) Dec A Anisocytosis OccLaboratory Tests 02/12 02/11 0543 1505 Miscellaneous Miscellaneous Test Called CalledLaboratory Tests 02/12 02/11 0543 1505 Chemistry Magnesium (1.6 - 2.6 mg/dL) 2.0 2.6Telemetry Interpretation:Normal sinus rhythmDiagnosis, Assessment PlanFree Text DxA P NotesFree Text DxA P Notes:1. Shortness of breath: Likely multifactorial given the patient's chronicobstructive pulmonary disease and systolic heart failure history. Exam suggestsminimal if any volume overload. Treat each condition.Itmtd-ho-irqpvin systolic heart failure.--The patient's prior EF was moderately depressed. REPEAT ECHOGRAM PENDING HIS PROBNP IS ELEVATED-CONTINUE GUIDELINE-DIRECTED MEDICAL THERAPY WITH MICHEAL INHIBITOR, BETA-BLOCKERAND DIURETIC THERAPY. HE STATES HE WAS NOT ON LASIX PENDING EF. LASIX NEED LINDA STARTED. CAUTIOUS DIURETIC GIVEN ACUTE HEPATIC INJURY: LIKELY AT THIS STAGEP.O. LASIX REGIMEN IS SUFFICIENT. May consider Entresto.- GIVEN CONCOMITANT HYPERTENSION AND ELEVATED BASELINE HEART RATE THAT CAN BERELATED TO ALCOHOL WITHDRAWAL I HAVE INCREASED THE PATIENT'S CARVEDILOL TO 12.5MG P.O. TWICE DAILY. Reassess blood pressure response and heart rate responseMultivessel coronary artery disease.--Continue guideline-directed medical therapy. Current presentation is notsuggestive of acute coronary syndrome. Has had recent coronary artery bypasssurgery. BETA-CLARITZA DOSE INCREASEDOld myocardial infarction.--The patient had some myocardial infarction/ado-LB-yvjjjjblo myocardialinfarction - in October Underwent bypass.--Continue guideline-directed medical therapy for myocardial infarction.Current beta claritza, aspirin, and statin therapy IF PATIENT'S STATIN THERAPYNEEDS TO BE WITHHELD IN THE SETTING OF PATIENT'S ACUTE HEPATIC INJURY PLEASEHOLD STATIN THERAPY IT IS OKAY WITH CARDIOLOGY SERVICE.Altered mental status/confusion Can be related to hepatic encephalopathy secondary to liver injury orwithdrawal. Monitor closely.Chronic obstructive pulmonary disease. Recommendation smoking cessation andnebulizer therapy.Alcoholic hepatitis. The patient's LFTs are significantly elevated. He admitsseasonal alcohol abuse. Recommend abstinence; Gastroenterology Service.Hypertension. MICHEAL inhibitor and beta claritza preferred.Hypercholesterolemia. For now, given the patient's elevated LFTs, it isreasonable to withhold the patient's statin therapy in the setting of acutehepatic injury. at 1318RPT #:[id number] OF REPORT Trina Salas MD- 4 [facility] ([facility])Hospitalist Progress NoteREPORT#:[id number] REPORT STATUS: SignedREPORT INITIALIZATION DATE:02/13/24 TIME: 937PATIENT: RAMAN BERNAL UNIT #: [id number]#: [id number] [id number] AGE: 58 SEX: M ATTEND: Josue Mena [facility] AUTHOR: Josue Mena [facility] MONETTEPT SERVICE DT/TIME: 02/13/24 09* ALL edits or amendments must be made on the electronic/computer document * See AddendumSubjectiveChief complaint:Acute alcoholic hepatitisReview of SystemsFree Text ROS NotesFree Text ROS Notes:General: No fever or weight lossHEENT: No headache or visual changesCardiovascular: No chest pain diaphoresisRespiratory: No coughing wheezing or shortness of breathGI: No nausea vomiting diarrheaGU: No hematuria dysuriaNeurological: No altered mental status or syncopeEndocrine: No diabetes, no thyroid diseaseSkin: No laceration or ecchymosisObjectiveGeneralVS/I O:Vital Signs: Date Time Temp Pulse Resp B/P B/P Pulse O2 O2 Flow FiO2 Mean Ox Delivery Rate 02/12 1214 98.1 02/12 0808 98.3 02/12 0701 92 161/83 115 92 02/12 0700 95 33 90 02/12 0600 121/61 84 90 02/12 0530 87 12 95 02/12 0509 87 11 138/67 96 95 02/12 0443 98.7 02/12 0433 89 19 181/96 129 96 02/12 0400 85 24 173/86 123 96 02/12 0301 83 17 154/89 117 96 02/12 0200 81 33 141/75 101 96 02/12 0100 76 15 155/80 111 97 02/12 0045 98.3 02/12 0011 85 23 148/70 102 98 02/11 2300 85 17 151/74 102 97 02/11 2206 82 23 171/83 119 98 02/11 2113 98.4 02/11 2100 79 18 153/76 107 96 02/11 2000 95 27 150/81 106 02/11 1900 84 19 150/85 111 94 02/11 1807 82 02/11 1800 84 25 132/76 95 96 02/11 1751 89 13 137/75 97 97 02/11 1700 87 22 158/91 119 98 02/11 1656 98.2 02/11 1600 77 14 145/75 102 94 02/11 1500 92 29 118/74 91 9824 hour I O ending at 0700: 02/12 0700 02/11 1900 Intake Total Output Total 250 800 Balance -250 -800 Number 1 Bowel Movements Number Voids 1 Output, Urine 250 800 Patient 173 lb Weight Weight Standing scale Measurement MethodPATIENT WEIGHT:Weight (lb): 172Weight (oz): 9.95Weight (kg): 78.300Physical ExamHead/Eyes: abnl conjunctiva/sclera (icteric)Cardiovascular: normal capillary refill, normal heart sounds, regular raterhythmRespiratory: aerating well, clear to auscultation, symmetric expansionAbdomen: distended, tenderness, softExtremities: moves all, normal capillary refill, normal range of motionNeuro/AGRICULTURE MANAGER: alert, oriented X 3, CNII-XII intactSkin: abnormal color (jaundiced), dry, intactPsychiatry: normal affect, normal judgment/insight, normal moodResultsFindings/Data:Laboratory Tests 02/12 02/12 02/12 02/12 02/11 1202 0800 0609 0543 2000 Chemistry Sodium (136 - 145 mmol/L) 133 L Potassium (3.4 - 5.1 mmol/L) 4.0 Chloride (98 - 107 mmol/L) 105 Carbon Dioxide (20 - 31 mmol/L) 22.0 BUN (9 - 23 mg/dL) 16 Creatinine (0.70 - 1.3 mg/dL) 1.36 H Estimated GFR (MDRD) (56 - 130) 60 Glucose (74 - 106 mg/dL) 214 H POC Glucose (65 - 99 MG/DL) 67 269 H 273 H 334 H Calcium (8.3 - 10.6 mg/dL) 8.3 Magnesium (1.6 - 2.6 mg/dL) 2.0 Total Bilirubin (0.20 - 1.10 mg/dL) 11.50 *H AST (0 - 33 U/L) 371 H ALT (10 - 49 U/L) 266 H Alkaline Phosphatase (46 - 116 U/L) 323 H NT-Pro-B Natriuret Pep (0 - 299 pg/mL) 1385 H Total Protein (5.7 - 8.2 g/dL) 5.1 L Albumin (3.4 - 5.0 g/dL) 2.6 L Globulin (1.5 - 3.8 G/DL) 2.5 Albumin/Globulin Ratio (1.1 - 2.2) 1.0 L Specimen Appearance (0 NEG Grade) 2+ Specimen Hemolysis (0 NEG Grade) 1+ 02/11 02/11 1621 1505 Chemistry Potassium (3.4 - 5.1 mmol/L) 3.4 POC Glucose (65 - 99 MG/DL) 192 H Magnesium (1.6 - 2.6 mg/dL) 2.6 Total Bilirubin (0.20 - 1.10 mg/dL) 10.70 *H Direct Bilirubin (0.1 - 0.3 mg/dL) 7.4 H Indirect Bilirubin (0.0 - 0.7 MG/DL) 3.3 H AST (0 - 33 U/L) 403 H ALT (10 - 49 U/L) 301 H Alkaline Phosphatase (46 - 116 U/L) 346 H Total Protein (5.7 - 8.2 g/dL) 5.4 L Albumin (3.4 - 5.0 g/dL) 2.7 L Globulin (1.5 - 3.8 G/DL) 2.7 Albumin/Globulin Ratio (1.1 - 2.2) 1.0 L Specimen Appearance (0 NEG Grade) 2+ Specimen Hemolysis (0 NEG Grade) 1+Laboratory Tests 02/12 0543 Hematology WBC (4.80 - 10.80 x10 3/uL) 10.84 H RBC (4.7 - 6.1 x10 6/uL) 4.05 L Hgb (14.0 - 17.0 G/DL) 12.8 L Hct (42 - 52 %) 37.6 L MCV (80 - 94 FL) 92.8 MCH (27 - 31 PG) 31.6 H MCHC (33 - 37 G/DL) 34.0 RDW Coeff of Carmenza (11.5 - 14.5 %) 18.5 H Plt Count (150 - 450 x10 3/uL) 79 L MPV (7.4 - 10.4 FL) 11.1 H Neut % (Auto) (42 - 86 %) 81.6 Lymph % (Auto) (24 - 44 %) 10.0 L Glasscock % (Auto) (0.0 - 4.0 %) 7.3 H Eos % (Auto) (0.0 - 2.7 %) 0.0 Baso % (Auto) (0.0 - 0.5 %) 0.2 Eos # (Auto) (0.0 - 0.5 x10 3/uL) 0.00 Baso # (Auto) (0.0 - 0.2 x10 3/uL) 0.02 Abs Immat Gran (auto) (0.00 - 0.03 x10 3/uL) 0.10 H Absolute Neuts (auto) (1.8 - 7.7 x10 3/uL) 8.85 H Absolute Lymphs (auto) (1.0 - 4.8 x10 3/uL) 1.08 Absolute Monos (auto) (0.0 - 0.8 x10 3/uL) 0.79 Absolute Nucleated RBC (0.0 - 0.2 X10 3/uL) 0.0 Add Manual Diff (TECH REVIEW) SCAN PLT_RBC Immature Gran % (0.0 - 2.0 %) 0.9 Nucleated RBC % (0.0 - 0.0 %) 0.0 Platelet Estimate (NORMAL) Dec A Anisocytosis OccLaboratory Tests 02/12 02/11 0543 1505 Miscellaneous Miscellaneous Test Called CalledDiagnosis, Assessment PlanProblem List/A P: 1. Acute alcoholic hepatitis Patient had active withdrawal today. Have escalated withdrawal protocol. Maintain safety. Patient with acute alcoholic hepatitis will trend hepatic functions and INRwith supportive care and treatment with 40 mg of oral prednisolone daily. Patient understands need for alcohol cessation and reports that he will returnto pain management Liver ultrasound with Doppler did not show evidence of portal vein thrombosis Repeat hepatic function panel with worsening bilirubinemia. Will check MRCP 2. Chest pain Patient complaining of slight sternal chest pain with a history of CABG inAugust Case discussed with cardiology Elevated troponin with a peak of 88 Continue with medical management at present 3. Chronic pain Patient with history of chronic pain and is seeing a pain specialist per hisreport but he has been out of his morphine for couple of weeks. Will give someanalgesics for pain control while in the hospital. 4. HTN (hypertension) Will continue on home doses of Coreg and lisinopril 5. HLD (hyperlipidemia) Will continue on statinFree Text DxA P NotesFree text DxA P notes:58-year-old male with recent CABG, diabetes, hypertension, hyperlipidemia, andchronic pain who began drinking more than usual due to running out of hismorpAny.DOne (last filled December 2 per [employer]). He is admitted with elevated livertransaminases and hyperbilirubinemia concerning for possible acute alcoholichepatitis. He began to complain of chest pain. Troponins were trended andshowed a mild rise and fall, peak troponin level of 88. Cardiology wasconsulted. at 1408Addendum 1: 02/14/24 1148 by Josue Mena Rikki is agitated and confused today.Alcohol withdrawal protocol initiated. at 1150RPT #:[id number] OF REPORT Bar Crooks MD-12-Feb-2024 [id number] [place], [place]IENT NAME: RAMAN BERNAL ADMIT DATE: 02/12/24ACCOUNT NO: [id number] ROOM NO: [id number] RECORD NO: [id number] AGE: 58REPORT TYPE: CONSULTATION SEX: MADMITTING PHYSICIAN:Josue Mena MDATTENDING PHYSICIAN:Josue Mena MDCONSULTATION DATE: 4REASON FOR CONSULTATION: Shortness of breath, palpitations.HISTORY OF PRESENT ILLNESS: Mr. Bernal is a 58-year-old male patient whounderwent recently in [facility], coronary artery bypass surgery secondaryto a 3-vessel coronary artery disease and left main coronary artery diseasefound. He also had a moderate systolic dysfunction, ejection fraction 37% bynuclear stress test. He has recovered from his surgery. He is admitted at thistime for progressive shortness of breath and palpitations. He states he takesno Lasix at home. He continues to smoke, however, cut down his smoking to 2cigarettes per day. He has been drinking a beer three-four 20-ounce Tall Boy'sper day. No chest pain other than numbness of the left side of the chest sincehis bypass surgery. He takes, otherwise, his prescribed cardiac medications.PAST MEDICAL HISTORY:1. Recent NSTEMI in 10/2023.2. Multivessel coronary artery disease, status post coronary artery bypasssurgery.3. Systolic heart failure.4. Alcohol abuse.5. Diabetes mellitus.6. Hypertension.7. Hyperlipidemia.8. Chronic back pain.9. Osteomyelitis.SOCIAL HISTORY: Alcohol, beer 3 to 4 Tallboys per day, most of the days.Smoking: Smoked 2 cigarettes per day per his statement.Drugs: Denies.ALLERGIES: NO KNOWN DRUG ALLERGIES.OUTPATIENT MEDICATIONS: Reviewed in EHR.REVIEW OF SYSTEMS: As per history of present illness. Denies any bleeding suchas melena, hematochezia, hematemesis, hematuria, easy bruising, or epistaxis.CONSTITUTIONAL: No fever, chills, or recent major weight change.NEUROLOGIC: No loss of conscious.CARDIOVASCULAR: Positive for palpitation and shortness of breath. No chestpain. No reported leg edema.GASTROINTESTINAL: No vomiting or nausea, but positive abdominal discomfort.PATIENT NAME: RAMAN BERNAL of the 14-point review of systems negative.PAST SURGICAL HISTORY: Status post coronary artery bypass surgery.PHYSICAL EXAMINATION:VITAL SIGNS: Blood pressure is 132/76, heart rate is 84, respiratory rate is25, and O2 sat is 94%.GENERAL: Elderly male patient, in no acute distress.HEENT: Extraocular movements are intact. No icterus seen.NECK: Supple, no JVD, no carotid bruit. Bilateral carotids are normal.CARDIOVASCULAR: Regular rate and rhythm. No murmur, rub, or gallop.LUNGS: Decreased breath sounds, prolonged expiratory phase.ABDOMEN: Soft, nondistended, nontender. Positive bowel sounds. Noorganomegaly, no bruit.EXTREMITIES: No edema, cyanosis, or clubbing.SKIN: No rashes. Positive excoriation fischer.MUSCULOSKELETAL: No gross joint deformities seen.PSYCHIATRIC: Appropriate mood and affect. No overt anxiety or depression.LABORATORY STUDIES: Hemoglobin is 13.3, platelet count is 90. Potassium is3.4, total bilirubin is 10.7. AST is 403, ALT is 301, alkaline phosphatase is346. Troponin is up to 88, repeat is 76.IMAGING: Chest x-ray, status post median sternotomy. No acute cardiopulmonaryfindings.EKG, normal sinus rhythm with PAC with aberrancy. Inferior infarct.ASSESSMENT AND PLAN:1. Shortness of breath: Likely multifactorial given the patient's chronicobstructive pulmonary disease and systolic heart failure history. Exam suggestsminimal if any overload. Treat each condition.Ouinc-ir-ynmcgqu systolic heart failure.--The patient's prior EF was moderately depressed. I recommend at this timerepeat echocardiogram. Also, to obtain a BNP level to determine a component ofheart failure contributing to his shortness of breath in addition to his chronicobstructive pulmonary disease.--Continue guideline-directed medical therapy with MICHEAL inhibitor, beta-blockerand diuretic therapy. He states he was not on Lasix pending EF. Lasix need linda started. May consider Entresto.Multivessel coronary artery disease.--Continue guideline-directed medical therapy. Current presentation is notsuggestive of acute coronary syndrome. Has had recent coronary artery bypasssurgery.Old myocardial infarction.--The patient had some myocardial infarction/bca-BL-xaeufrflp myocardialinfarction in October. Underwent bypass.--Continue guideline-directed medical therapy for myocardial infarction.Current beta claritza, aspirin, and statin therapy.PATIENT NAME: RAMAN BERNAL obstructive pulmonary disease. Recommendation smoking cessation andnebulizer therapy.Alcoholic hepatitis. The patient's LFTs are significantly elevated. He admitsseasonal alcohol abuse. Recommend abstinence; Gastroenterology Service.Hypertension. MICHEAL inhibitor and beta claritza preferred.Hypercholesterolemia. For now, given the patient's elevated LFTs, it isreasonable to withhold the patient's statin therapy.Dictated By: Johanna Torres Dictated: 02/12/2024 20:22:31Date Transcribed: 02/13/2024 02:55:55DEA/LEONOR/Ernst #: [id number] ID: [id number] and Edited by Valeriy Dinero MD On 02/13/24 12:20:29 PM at 1223PATIENT NAME: RAMAN BERNAL Vincent Jimenez DO-2023 [facility] ([facility])Hospitalist Progress NoteREPORT#:[id number] REPORT STATUS: SignedREPORT INITIALIZATION DATE:02/12/24 TIME: 1804PATIENT: RAMAN BERNAL UNIT #: [id number]#: [id number] [id number] AGE: 58 SEX: M ATTEND: Lakeisha Kaur DOADM AUTHOR: Lakeisha Kaur DOREPT SERVICE DT/TIME: 02/12/24 180* ALL edits or amendments must be made on the electronic/computer document *SubjectiveChief complaint:Acute alcoholic hepatitisPatient reports:Yes: abdominal pain, chest pain, shortness of breath. No: feeling better, paincontrolled.ObjectiveGeneralVS/I O:Vital Signs: Date Time Temp Pulse Resp B/P B/P Pulse O2 O2 Flow FiO2 Mean Ox Delivery Rate 02/11 1656 36.8 02/11 1600 77 14 145/75 102 94 02/11 1500 92 29 118/74 91 98 02/11 1400 74 15 112/62 81 95 02/11 1300 84 21 99/74 82 95 02/11 1217 36.7 02/11 1200 85 19 118/72 90 98 02/11 1100 79 15 139/73 100 96 02/11 1000 92 13 102/59 74 97 02/11 0901 115 31 114/62 82 97 02/11 0900 110 39 99 02/11 0825 36.8 02/11 0800 89 14 135/63 91 97 02/11 0700 90 13 127/62 89 96 02/11 0600 91 13 114/63 82 97 02/11 0535 36.8 02/11 0500 95 17 109/54 76 98 02/11 0401 97 14 131/60 86 98 02/11 0306 99 16 174/85 119 02/11 0200 88 16 109/59 97 02/11 0118 153/93 02/11 0100 89 16 194/92 98 02/11 0045 81 14 196/91 99 02/11 0030 90 14 162/97 100 02/11 0015 84 16 179/107 97 02/10 2315 91 16 167/87 99 02/10 2201 80 14 163/96 98 02/10 2116 88 16 132/87 100 02/10 1850 36.9 98 16 120/64 82 100 Room air24 hour I O ending at 0700: 02/11 0700 02/10 1900 Intake Total Output Total 300 Balance -300 Output, Urine 300 Patient 78.3 kg Weight Weight Standing scale Measurement MethodPATIENT WEIGHT:Weight (lb):Weight (oz):Weight (kg): 78.300Medications:Active Meds + DC'd Last 24 HrsFolic Acid (Folvite) 1 MG DAILY POMultivitamins (Tab-A-Everett Tablet) 1 TAB DAILY POAtorvastatin Calcium (Lipitor 40 mg Tablet) 40 MG BEDTIME POThiamine HCl (Thiamine B-1) 100 MG BID POMorphine Sulfate (morphine SULFATE) 4 MG Q4H PRN PRN IVPotassium Chloride (K-Dur 20 mEq Tablet) 40 MEQ ONCE ONE PO (DC)Magnesium Sulfate (MAGNESIUM SULFATE 2 GM/WATER 50ML) 50 ML Q2H IV (DC)Potassium Chloride (K-Dur 20 mEq Tablet) 40 MEQ Q2H PO (DC)Morphine Sulfate (Morphine Sulfate Immediate-Release) 15 MG Q6H PRN PRN POFlumazenil (ROMAZICON) 0.2 MG ASDIR PRN IVLorazepam (Ativan 1 mg Tablet) 1 MG Q2H WA PRN POLorazepam (ATIVAN 2MG/ML VIAL) 2 MG Q2H WA PRN IVCarvedilol (Coreg 3.125 mg Tablet) 3.125 MG Q12HR POLosartan Potassium (Cozaar 50 mg Tablet) 50 MG DAILY POPrednisone (predniSONE 20 mg Tablet) 40 MG DAILY POInsulin Human Lispro (HumaLOG) MODERATE SLIDING SCALE INSULIN AC HS SUBQAcetaminophen (TYLENOL 325MG TABLET) 650 MG Q4H PRN PRN PO (DC)Hydralazine HCl (APRESOLINE) 10 MG Q6H PRN PRN IVOndansetron HCl (Zofran 4 mg/2 mL Inj) 4 MG Q8H PRN PRN IVSodium Chloride (Sodium Chloride 0.9% 1,000 mL) 1,000 ML .[id number] IVDextrose (Glucose Tablet) 16 GM ASDIR PRN PODextrose/Water (DEXTROSE 50% 50ML SYRINGE) 12.5 GM ASDIR PRN IVMorphine Sulfate (morphine SULFATE) 4 MG ONCE ONE IV (DC)Hydralazine HCl (APRESOLINE) 10 MG ONCE ONE IV (DC)Morphine Sulfate (morphine SULFATE) 4 MG X1ED STA IV (DC)Hydralazine HCl (APRESOLINE) 10 MG X1ED STA IV (DC)Morphine Sulfate (morphine SULFATE) 4 MG X1ED STA IV (DC)Ondansetron HCl (Zofran 4 mg/2 mL Inj) 4 MG X1ED STA IV (DC)Sodium Chloride (Sodium Chloride 0.9% 1,000 mL) 1,000 ML X1ED STA IV (DC)Physical ExamGeneral appearance: alert, awake, orientedHead/Eyes: abnl conjunctiva/sclera (icteric)Cardiovascular: normal capillary refill, normal heart sounds, regular raterhythmRespiratory: aerating well, clear to auscultation, symmetric expansionAbdomen: distended, tenderness, softExtremities: moves all, normal capillary refill, normal range of motionNeuro/AGRICULTURE MANAGER: alert, oriented X 3, CNII-XII intactSkin: abnormal color (jaundiced), dry, intactResultsFindings/Data:Laboratory Tests 02/11 02/11 02/11 02/11 02/11 1621 1505 1125 0616 0545Chemistry Sodium (136 - 145 mmol/L) 132 L Potassium (3.4 - 5.1 mmol/L) 3.4 2.6 *L Chloride (98 - 107 mmol/L) 98 Carbon Dioxide (20 - 31 mmol/L) 26.0 BUN (9 - 23 mg/dL) 12 Creatinine (0.70 - 1.3 mg/dL) 1.03 Estimated GFR (MDRD) (56 - 130) 84 Glucose (74 - 106 mg/dL) 183 H POC Glucose (65 - 99 MG/DL) 192 H 185 H 231 H Calcium (8.3 - 10.6 mg/dL) 7.7 L Phosphorus (2.4 - 5.1 mg/dL) 3.0 Magnesium (1.6 - 2.6 mg/dL) 2.6 1.4 L Total Bilirubin (0.20 - 1.10 mg/dL) 10.70 *H Direct Bilirubin (0.1 - 0.3 mg/dL) 7.4 H Indirect Bilirubin (0.0 - 0.7 MG/DL) 3.3 H AST (0 - 33 U/L) 403 H ALT (10 - 49 U/L) 301 H Alkaline Phosphatase (46 - 116 U/L) 346 H Total Protein (5.7 - 8.2 g/dL) 5.4 L Albumin (3.4 - 5.0 g/dL) 2.7 L Globulin (1.5 - 3.8 G/DL) 2.7 Albumin/Globulin Ratio (1.1 - 2.2) 1.0 L Specimen Appearance (0 NEG Grade) 2+ 1+ Specimen Hemolysis (0 NEG Grade) 1+ 1+ 02/11 02/11 02/10 02/10 02/10 0544 0305 5831 2417 1926Chemistry Sodium (133 - 145 MMOL/L) 132 L Potassium (3.6 - 5.2 MMOL/L) 4.0 Chloride (100 - 108 MMOL/L) 97 L Carbon Dioxide (22 - 32 MMOL/L) 23 BUN (6 - 20 MG/DL) 17 Creatinine (0.60 - 1.00 MG/DL) 1.24 H Estimated GFR (MDRD) (56 - 130) 67 Glucose (65 - 99 MG/DL) 441 *H POC Glucose (65 - 99 MG/DL) 244 H 370 H Calcium (8.7 - 10.5 MG/DL) 7.8 L Total Bilirubin (0.0 - 1.0 MG/DL) 8.4 H AST (15 - 37 Units/L) 441 H ALT (30 - 65 Units/L) 330 H Alkaline Phosphatase (50 - 136 Units/L) 333 H Troponin I High Sens (< 76 ng/L) 76 *H 88 *H Total Protein (6.4 - 8.2 G/DL) 5.6 L Albumin (3.4 - 5.0 G/DL) 2.4 L Globulin (1.5 - 3.8 G/DL) 3.2 Albumin/Globulin Ratio (1.1 - 2.2) 0.8 L Amylase (30 - 118 U/L) 31 Lipase (12 - 53 U/L) 32 02/10 1857 Chemistry POC Glucose (65 - 99 MG/DL) >600 ABOVE HI LIMIT *HLaboratory Tests 02/10 1927 Coagulation PT (9.9 - 13.2 SECONDS) 18.4 H INR 1.64Laboratory Tests 02/1145 1926 Hematology WBC (4.80 - 10.80 x10 3/uL) 5.38 4.93 RBC (4.7 - 6.1 x10 6/uL) 4.28 L 4.38 L Hgb (14.0 - 17.0 G/DL) 13.3 L 13.6 L Hct (42 - 52 %) 37.6 L 38.2 L MCV (80 - 94 FL) 87.9 87.2 MCH (27 - 31 PG) 31.1 H 31.1 H MCHC (33 - 37 G/DL) 35.4 35.6 RDW Coeff of Carmenza (11.5 - 14.5 %) 18.8 H 18.8 H Plt Count (150 - 450 x10 3/uL) 90 L 138 L MPV (7.4 - 10.4 FL) 10.3 11.4 H Neut % (Auto) (42 - 86 %) 53.7 54.9 Lymph % (Auto) (24 - 44 %) 34.8 33.5 Glasscock % (Auto) (0.0 - 4.0 %) 10.0 H 11.2 H Eos % (Auto) (0.0 - 2.7 %) 0.7 0.2 Baso % (Auto) (0.0 - 0.5 %) 0.4 0.2 Eos # (Auto) (0.0 - 0.5 x10 3/uL) 0.04 0.01 Baso # (Auto) (0.0 - 0.2 x10 3/uL) 0.02 0.01 Abs Immat Gran (auto) (0.00 - 0.03 x10 3/uL) 0.02 Absolute Neuts (auto) (1.8 - 7.7 x10 3/uL) 2.89 2.71 Absolute Lymphs (auto) (1.0 - 4.8 x10 3/uL) 1.87 1.65 Absolute Monos (auto) (0.0 - 0.8 x10 3/uL) 0.54 0.55 Absolute Nucleated RBC (0.0 - 0.2 X10 3/uL) 0.0 Add Manual Diff (TECH REVIEW) SCAN PLT_RBC Immature Gran % (0.0 - 2.0 %) 0.4 Nucleated RBC % (0.0 - 0.0 %) 0.0 Platelet Estimate (NORMAL) Dec A Microcytosis 1+ Target Cells 1+Laboratory Tests 02/11 02/11 02/10 02/10 [id number] 1926 Miscellaneous Miscellaneous Test Called Called Called CalledLaboratory Tests 02/10 1927 Toxicology Ethyl Alcohol (0 - 10 MG/DL) 210 HRadiology data:Recent Impressions:RADIOLOGY - XR CHEST 1 V 02/10 1930 Report Impression - Status: SIGNED Entered: 02/11/20242036IMPRESSION:No acute cardiopulmonary findings.Electronically signed by: Corey Mcmahan DO 02/11/2024 08:35PM [facility] RP Workstation: [id number] By: LLOYD BATRES - DUP AB/PEL/SC COMP 02/11 103 Report Impression - Status: SIGNED Entered: 02/12/2024 1145IMPRESSION:No evidence of acute pathology of the right upper quadrant.Mild hepatomegaly with moderate hepatic steatosis.Patent portal and hepatic veins with normal direction of flow.Electronically signed by: Mauricio Ascencio MD 02/12/2024 11:43 [facility] RP Workstation: [id number] By: LLOYD Luna - ABDOMEN LTD 02/11 1033 Report Impression - Status: SIGNED Entered: 02/12/2024 1145IMPRESSION:No evidence of acute pathology of the right upper quadrant.Mild hepatomegaly with moderate hepatic steatosis.Patent portal and hepatic veins with normal direction of flow.Electronically signed by: Mauricio Ascencio MD 02/12/2024 11:43 [facility] RP Workstation: [id number] By: DR.SHORO Mary Ascencio, MDDiagnosis, Assessment PlanProblem List/A P: 1. Acute alcoholic hepatitis Patient with acute alcoholic hepatitis will trend hepatic functions and INRwith supportive care and treatment with 40 mg of oral prednisolone daily. Patient understands need for alcohol cessation and reports that he will returnto pain management Liver ultrasound with Doppler did not show evidence of portal vein thrombosis Repeat hepatic function panel with worsening bilirubinemia. Will check MRCP 2. Chest pain Patient complaining of slight sternal chest pain with a history of CABG inAugust Case discussed with cardiology Elevated troponin with a peak of 88 Continue with medical management at present 3. Chronic pain Patient with history of chronic pain and is seeing a pain specialist per hisreport but he has been out of his morphine for couple of weeks. Will give someanalgesics for pain control while in the hospital. 4. HTN (hypertension) Will continue on home doses of Coreg and lisinopril 5. HLD (hyperlipidemia) Will continue on statinFree Text DxA P NotesFree text DxA P notes:58-year-old male with recent CABG, diabetes, hypertension, hyperlipidemia, andchronic pain who began drinking more than usual due to running out of hismorphine (last filled December 18 per [employer]). He is admitted with elevated livertransaminases and hyperbilirubinemia concerning for possible acute alcoholichepatitis. He began to complain of chest pain. Troponins were trended andshowed a mild rise and fall, peak troponin level of 88. Cardiology wasconsulted. at 1811RPT #:[id number] OF REPORT Aman Heath MD-12-Feb-2024 [facility] ([facility])Hospitalist History PhysicalREPORT#:[id number] REPORT STATUS: SignedREPORT INITIALIZATION DATE:02/12/24 TIME: 045PATIENT: RAMAN BERNAL UNIT #: [id number]#: [id number] [address] [birth year] AGE: 58 SEX: M ATTEND: Cristian Newton MDADM AUTHOR: Cristian Newton MDREPT SERVICE DT/TIME: 02/12/24 0200* ALL edits or amendments must be made on the electronic/computer document *History of Present IllnessHPIChief complaint:Acute alcoholic hepatitisPCP:PCP: Walker Lui DOHPI:Mr. Bernal is a 58-year-old gentleman with a past medical history of priorCABG, diabetes hypertension hyperlipidemia as well as chronic back pain whopresented to the emergency department with ongoing epigastric pain after havingbeen out of his morphine that he had been prescribed by his pain specialist thelast 2 weeks. He told the emergency department doctor when he ran out he didnot want to take it anymore and instead used alcohol on my report he said he didnot go because he did not have a ride. However he has been drinking heavily forthe last couple weeks and presenting the hospital with the abdominal pain backpain and found to have a significantly elevated bilirubin over 8 with an INR of1.6 and elevated transaminitis consistent with acute alcoholic hepatitis.Patient with scleral icterus. [facility] hepatitis for monitoring of hepatic functionand supportive care with starting on treatment with prednisolone for mortalityrisk reduction.HistoryPast Medical Surgical HxAdditional medical history:Osteomyelitis May 12 continues on antibiotics.MN and CABG November 09 Dr wall of cardiologySocial HistorySmoking status for patients 13 years old or older: Current some day smokerDate last smoked: 02/11/24Packs per day: 0.5Pack years: 0Medication/Allergy-Vaccine HxAllergies:Coded Allergies:No Known Allergies (11/20/22)Review of SystemsGI:Reports: abdominal pain.All systems rev neg: except as notedOBJECTIVEVS/I O:Vital Signs Date Temp Pulse Resp B/P B/P Mean Pulse Ox FiO2 02/10-02/11 98.4 80-98 14-16 109-196/59-107 82 97-100Last Documented: Result Date Time Pulse Ox 97 02/11 0200 B/P 109/59 02/11 0200 Pulse 88 02/11 0200 Resp 16 02/11 0200 B/P Mean 82 02/10 1850 O2 Delivery Room air 02/10 1850 Temp 98.4 02/10 [id number] hour I O ending at 0700: 02/11 0700 02/10 1900 Intake Total Output Total Balance Patient 78.3 kg Weight Weight Standing scale Measurement MethodPatient Weight and BMIWeight (kg): 78.300 BMI: 28.7General appearance: alert, awake, orientedCardiovascular: normal capillary refill, normal heart sounds, regular raterhythmRespiratory: aerating well, clear to auscultation, symmetric expansionAbdomen: tendernessExtremities: moves all, normal capillary refill, normal range of motionNeuro/AGRICULTURE MANAGER: alert, oriented X 3, CNII-XII intactSkin: dry, intact, normal colorPsychiatry: normal affect, normal judgment/insight, normal moodDiagnosis, Assessment PlanProblem List/A P: 1. Acute alcoholic hepatitis Patient with acute alcoholic hepatitis will trend hepatic functions and INRwith supportive care and treatment with 40 mg of oral prednisolone daily. Hadfrank discussion with patient about the importance of complete abstinence in thefuture of alcohol and future use of alcohol will almost certainly result infurther episodes of acute alcoholic hepatitis and with repeated episodes he isat a very high risk of . Patient voiced understanding of the situation. 2. Chronic pain Patient with history of chronic pain and is seeing a pain specialist per hisreport but he has been out of his morphine for couple of weeks. Will give someanalgesics for pain control while in the hospital. 3. HTN (hypertension) Will continue on home doses of Coreg and lisinopril 4. HLD (hyperlipidemia) Will continue on statinCode status: full code at 0818RPT #:[id number] OF REPORT Alverto Arzola [id number] [facility] ([facility])OR A [facility] PROVIDER REPORTREPORT#:[id number] REPORT STATUS: SignedDATE:02/11/24 TIME: 2016PATIENT: RAMAN BERNAL UNIT #: [id number]#: [id number] ROOM/BED:: 63 AGE: 58 SEX: M PCP PHYS: Walker Lui DOSERVICE AUTHOR: Keyonna Briceño DOREP SRV REP SRV TM: 2016* ALL edits or amendments must be made on the electronic/computer document *HPI-General IllnessFree Text HPI NotesFree Text HPI NotesThis patient is a 58-year-old male who is presenting to the emergency room forevaluation of multiple complaints. He has a history of diabetes, coronaryartery disease status post CABG, chronic back pain with history of osteomyelitisfor which he says he has been on antibiotics all year long. Patient iscomplaining of having his chronic back pain and he is also complaining ofchronic chest pain which he has had for months. He was seen in the emergencyroom yesterday for the same symptoms and eventually discharged to home. Hetakes morphine at home for pain but has not taking it for the past 2 weeks. Heapparently ran out and decided he did not want to take pain medicine any longer. He has been medicating with alcohol and was intoxicated on blood work yesterdayhere in the emergency room. He states his last drink was around noon today.EMS brought him into the emergency room and apparently he had a blood sugar of50 and they administered oral glucose prior to arrival at the emergency room andhis blood sugar is reading high. Patient has not recently followed up with hiscardiologist or his neurosurgeonGeneralInitial Greet Date/Time 02/11/24 1854[facility] __ (multiple complaints)Review of SystemsFree Text ROS NotesFree Text ROS NotesCONSTITUTIONAL: No fever or chills, no fatigue, no weaknessHENT: No congestion or runny nose, no ear pain, no sore throat.EYES: No eye pain, no vision changes, no eye drainageCARDIOVASCULAR: See HPIRESPIRATORY: No cough, no shortness of breath, no wheezing.GASTROINTESTINAL: No abdominal pain, no nausea, no vomiting, no diarrhea, noconstipation, no melenaGENITOURINARY: No dysuria, no urinary urgency, no urianry frequency, nohematuriaMUSCULOSKELETAL: See HPILYMPHATIC: No swollen glands.SKIN: No rashNEUROLOGIC: No seizures. No syncope, No headache, no weakness, no numbnessHEMATOLOGIC: No unusual bruising or bleeding.PSYCHIATRIC: No depression or anxiety.Past Medical History - AdultStated Complaint BACK PAIN FOR 30 DAYS, DIARRHEA, NAUSEAAllergiesCoded Allergies:No Known Allergies (11/20/22)Home MedicationsActive ScriptsIBUPROFEN (MOTRIN) 800 MG PO TID PRN PRN PAIN IBUPROFEN (MOTRIN) 800 MG PO TID PRN PRN PAIN #30 TABS Prov: 11/20/22LIDOCAINE (LIDODERM 5%) 1 PATCH TRANSDERM DAILY PRN Pain LIDOCAINE (LIDODERM 5%) 1 PATCH TRANSDERM DAILY PRN Pain #30 PATCHES Prov: 11/20/22methocarbamoL (ROBAXIN) 500 MG PO TID PRN PRN Muscle Pain methocarbamoL (ROBAXIN) 500 MG PO TID PRN PRN Muscle Pain #30 TABS Prov: 11/20/22CEPHALEXIN (KEFLEX) 500 MG PO Q12H CEPHALEXIN (KEFLEX) 500 MG PO Q12H #60 CAPS Prov: 07/29/23ONDanestron (ZOFRAN ODT) 8 MG PO Q12H PRN PRN NAUSEA/VOMITING ONDanestron (ZOFRAN ODT) 8 MG PO Q12H PRN PRN NAUSEA/VOMITING #15 TABS Prov: 07/29/23Reported MedicationsmetFORMIN 500 MG PO BIDPhysical ExamVital SignsVital SignsFirst Documented: Result Date Time Pulse Ox 100 02/100 B/P 120/64 02/10 1850 B/P Mean 82 02/10 1850 O2 Delivery Room air 02/10 1850 Temp 36.9 02/10 1850 Pulse 98 02/10 1850 Resp 16 02/10 1850Last Documented: Result Date Time Pulse Ox 100 02/10 1850 B/P 120/64 02/10 1850 B/P Mean 82 02/10 1850 O2 Delivery Room air 02/10 1850 Temp 36.9 02/10 1850 Pulse 98 02/10 1850 Resp 16 02/10 1850Review of Vital Signs ReviewedFree Text PE NotesFree Text PE NotesGENERAL: AxO x 3, No acute distressHENT: Normal cephalic/atraumaticEYES: normal inspectionNECK: Normal range of motion, normal inspection; no lymphadenopathyLUNGS: Clear breath sounds bilaterally. No wheezes, rales, or rhonchi. Norespiratory distressCARDIAC: Regular rate and rhythm. no murmursABDOMEN: Soft, non-tender, non-distended; no rigidity, no guardingMUSCULOSKELETAL: No deformity, no edemaNEUROLOGICAL: CN II-XII intact. No focal neuro deficitsSKIN: Normal appearance with no rashes or lesions.Interpretation DiagnosticsLab Results InterpretationResultsLaboratory Tests02/11/241926:[Embedded Image Not Available]Laboratory Tests: 02/104 0 1926 Chemistry Sodium (133 - 145 MMOL/L) 132 L Potassium (3.6 - 5.2 MMOL/L) 4.0 Chloride (100 - 108 MMOL/L) 97 L Carbon Dioxide (22 - 32 MMOL/L) 23 BUN (6 - 20 MG/DL) 17 Creatinine (0.60 - 1.00 MG/DL) 1.24 H Estimated GFR (MDRD) (56 - 130) 67 Glucose (65 - 99 MG/DL) 441 *H POC Glucose (65 - 99 MG/DL) 370 H Calcium (8.7 - 10.5 MG/DL) 7.8 L Total Bilirubin (0.0 - 1.0 MG/DL) 8.4 H AST (15 - 37 Units/L) 441 H ALT (30 - 65 Units/L) 330 H Alkaline Phosphatase (50 - 136 Units/L) 333 H Troponin I High Sens (< 76 ng/L) 76 *H 88 *H Total Protein (6.4 - 8.2 G/DL) 5.6 L Albumin (3.4 - 5.0 G/DL) 2.4 L Globulin (1.5 - 3.8 G/DL) 3.2 Albumin/Globulin Ratio (1.1 - 2.2) 0.8 L Hematology WBC (4.80 - 10.80 x10 3/uL) 4.93 RBC (4.7 - 6.1 x10 6/uL) 4.38 L Hgb (14.0 - 17.0 G/DL) 13.6 L Hct (42 - 52 %) 38.2 L MCV (80 - 94 FL) 87.2 MCH (27 - 31 PG) 31.1 H MCHC (33 - 37 G/DL) 35.6 RDW Coeff of Carmenza (11.5 - 14.5 %) 18.8 H Plt Count (150 - 450 x10 3/uL) 138 L MPV (7.4 - 10.4 FL) 11.4 H Neut % (Auto) (42 - 86 %) 54.9 Lymph % (Auto) (24 - 44 %) 33.5 Glasscock % (Auto) (0.0 - 4.0 %) 11.2 H Eos % (Auto) (0.0 - 2.7 %) 0.2 Baso % (Auto) (0.0 - 0.5 %) 0.2 Eos # (Auto) (0.0 - 0.5 x10 3/uL) 0.01 Baso # (Auto) (0.0 - 0.2 x10 3/uL) 0.01 Absolute Neuts (auto) (1.8 - 7.7 x10 3/uL) 2.71 Absolute Lymphs (auto) (1.0 - 4.8 x10 3/uL) 1.65 Absolute Monos (auto) (0.0 - 0.8 x10 3/uL) 0.55 Miscellaneous Miscellaneous Test Called Called Toxicology Ethyl Alcohol (0 - 10 MG/DL) 210 H 02/10 1857 Chemistry POC Glucose (65 - 99 MG/DL) >600 ABOVE HI LIMIT *HRecent Impressions:RADIOLOGY - XR CHEST 1 V 02/10 1930 Report Impression - Status: SIGNED Entered: 02/11/20242036IMPRESSION:No acute cardiopulmonary findings.Electronically signed by: Corey Mcmahan DO 02/11/2024 08:35PM [facility] Workstation: [id number] By: - COREY MCMAHAN, NAHOMY #1 InterpretationText/Dict NoteSinus rhythm with PACs with aberrant conduction, rate 86 MN: No acute STelevation or depressionDate 02/11/24Time e-Evaluation MDMED CourseMedication(s) OrderedMedication(s) Ordered:Cardiovascular Drugs Sig/Darshana Start time Last Medication Dose Route Stop Time Status Admin Hydralazine HCl 10 MG X1ED STA 02/10 2252 DC IV 02/10 2253Central Nervous System Agents Sig/Darshana Start time Last Medication Dose Route Stop Time Status Admin Morphine Sulfate 4 MG X1ED STA 02/10 2304 DC 02/10 IV 02/10 2305 2315 Morphine Sulfate 4 MG X1ED STA 02/10 191 DC 02/10 IV 02/10 1917 2018Electrolytic, Caloric, And Lety Sig/Darshana Start time Last Medication Dose Route Stop Time Status Admin Sodium Chloride 1,000 ML X1ED STA 02/10 1903 DC 02/10 IV 02/11 1904 1930Gastrointestinal Drugs Sig/Darshana Start time Last Medication Dose Route Stop Time Status Admin Ondansetron HCl 4 MG X1ED STA 02/11 1916 DC 02/10 IV 02/10 1917 2018Patient Discharge DepartureVital Signs/ConditionVital SignsFirst Documented: Result Date Time Pulse Ox 100 02/10 1850 B/P 120/64 02/10 1850 B/P Mean 82 02/10 1850 O2 Delivery Room air 02/10 1850 Temp 36.9 02/10 1850 Pulse 98 02/10 1850 Resp 16 02/10 1850Last Documented: Result Date Time Pulse Ox 100 02/10 1850 B/P 120/64 02/10 1850 B/P Mean 82 02/10 1850 O2 Delivery Room air 02/10 1850 Temp 36.9 02/10 1850 Pulse 98 02/10 1850 Resp 16 02/10 1850All vital signs available at the time of this entry have been reviewed.Condition StableClinical ImpressionClinical ImpressionPrimary Impression: Acute alcoholic hepatitisSecondary Impressions: Chest pain, Chronic back painDisposition DecisionHospitalize Hosp Physician Name Cristian Newton MD Hosp Physician Hospitalist Request Time 24 Request Date 02/12/24 )( Accepts Hospitalization Yes )( Reason for Hospitalizationsee above )( Accepted Time 24 )( Accepted Date 02/12/24Discharge/Care PlanAdvance Care Planning Code Status Full at 0025RPT #:[id number] OF REPORT Problems SARS-CoV-2 not detected Onset:13-Sep-2024 Debi Baig MD Alcohol intoxication Onset:13-Sep-2024 Debi Baig MD Hyperglycemia Onset:04-Sep-2024 [place]-Carlson Sierr [employer] TECH Chest pain Onset:30-Aug-2024 ARNAN99 Fracture of rib Onset:26-Aug-2024 Nya Longoria MD Myocardial infarction Onset:26-Aug-2024 yNa Longoria MD Atrial fibrillation with rap id ventricular response Onset:26-Aug-2024 Nya Longoria MD Type 2 diabetes mellitus Onset:07-Jul-2024 Chu Francisco MD Asthenia Onset:18-Jun-2024 Allen Venegas APRNNP Structure of left shoulder r egion Onset:19-Apr-2024 Bassam Lopez DO Hyperlipidemia Onset:12-Feb-2024 Aman Heath MD Hypertensive disorder Onset:12-Feb-2024 Aman Heath MD Acute alcoholic liver diseas e Onset:12-Feb-2024 Alverto Arzola DO Chronic back pain Onset:12-Feb-2024 Alverto Arzola DO Dehydration Onset:10-Feb-2024 Bryn Verdugo MD Chronic pain Onset:10-Feb-2024 Bryn Verdugo MD Chest pain Onset:21-Jan-2024 Criss Malloy DO Alcohol intoxication Onset:21-Jan-2024 Criss Malloy DO Hypertensive urgency Onset:21-Jan-2024 Criss Malloy DO Alcohol abuse Onset:03-Aug-2023 Margaret Vasquez MD Gastritis Onset:03-Aug-2023 Margaret Vasquez MD Viral gastroenteritis Onset:29-Jul-2023 Nomejuan Agarwal Rubi MEDICAL CLAIMS ASSISTANT Viral disease Onset:31-Mar-2023 Alverto Arzola DO Lumbar radiculopathy Onset:20-Nov-2022 ENRJA Chronic low back pain Onset:20-Nov-2022 ENRJA Chronic back pain Onset:05-Aug-2016 Rena SANTOS Alcohol intoxication Onset:02-Mar-2016 Inflammatory disorder Onset:14-Feb-2016 Dental abscess Onset:14-Feb-2016 Patient encounter status Onset:16-Nov-2014 Bri RIVAS Patient noncompliance - gene ral Onset:16-Nov-2014 rBi RIVAS Hyperglycemia Onset:16-Nov-2014 Bri RIVAS Depressive disorder Onset:16-Nov-2014 Bri RIVAS Hyperglycemia Onset:14-Aug-2014 Seizure Onset:14-Aug-2014 Suicidal thoughts Onset:08-Dec-2013 Asthenia Onset:23-Nov-2013 Substance abuse Onset:23-Nov-2013 Cocaine abuse Onset:10-Nov-2013 Hypokalemia Onset:10-Nov-2013 Depressive disorder Onset:10-Nov-2013 Mental Status Cognitive function finding 11-Sep-2024 Cognitive function finding 05-Sep-2024 Cognitive function finding 26-Aug-2024 Cognitive function finding 12-Feb-2024 Cognitive function finding 14-Feb-2016 Functional Status Functional finding 14-Feb-2016 Allergies and Adverse Reactions No Known Allergies(Allergy) Onset: 11-Sep-2024 No Known Allergies(Allergy) Onset: 20-Nov-2022 tramadol(Allergy) Onset: 18-Feb-2016 Reaction:SEIZURES No Known Allergies(Allergy) Onset: 14-Aug-2014 No Known Allergies(Allergy) Onset: 23-Nov-2013 Medications 100 ML magnesium sulfate 40 MG/ML Injection;[id number] Terese Parsons MD Start:08-Qlj-8674Xwg:12-Sep-2024 Comments:[id number] traZODone hydrochloride 50 MG Oral Tablet;50 MILLIGRAM BEDTIME Quantity:1 MANSA98 Start:11-Sep-2024 Status:Discontinued Comments:[id number] atorvastatin 40 MG Oral Tablet [Lipitor];40 MILLIGRAM BEDTIME Quantity:1 Start:11-Sep-2024 Status:Discontinued Comments:[id number] potassium phosphate 155 MG / sodium phosphate, dibasic 852 MG / sodium phosphate, monobasic 130 MG Oral Tablet [K-Phos Neutral];500 MILLIGRAM ONCE Quantity:2 MANSA Start:76-Niu-7107Ogt:2024 Comments:[id number] Administration Instructions:FOR NEUTRA-PHOS acetaminophen 325 MG / oxyCODONE hydrochloride 5 MG Oral Tablet;1 TABLET Q6H PRN Quantity:1 Start:11-Sep-2024 Status:Discontinued Comments:[id number] oxyCODONE HCL 10 MG IR TABLET;10 MILLIGRAM Q6H PRN Quantity:1 Start:11-Sep-2024 Status:Discontinued Comments:[id number] acetaminophen 325 MG Oral Tablet;650 MILLIGRAM Q6H PRN Quantity:2 Start:11-Sep-2024 Status:Discontinued Comments:[id number] Administration Instructions:MAXIMUM DAILY DOSE OF ACETAMINOPHEN = 4000 MG Morphine Sulfate 2 MG/ML Injectable Solution;2 MILLIGRAM Q6H PRN Quantity:1 Start:11-Sep-2024 Status:Discontinued Comments:[id number] Administration Instructions:IF PATIENT IS TAKING ORAL, PLEASE CALL PHARMACY. HumaLOG;[id number] Administration Instructions:REGULAR SLIDING SCALE IJEPHODP81-414 MG/DL, 0 LALBD151-283 MG/DL, 1 XIDIF063-061 MG/DL, 2 DOHVM309-425 MG/DL, 3 DWRJK006-158 MG/DL, 4 CQRMA052-997 MG/DL, 5 UNITS>= 400, 5 UNITS ANDOBTAIN STAT BS AND CALLRESULTS TO PHYSICIAN Quantity:0 MANSA Start:11-Sep-2024 Status:Discontinued Comments:[id number] Administration Instructions:REGULAR SLIDING SCALE UUXWMFSD72-187 MG/DL, 0 FWASN524-958 MG/DL, 1 VMITT491-228 MG/DL, 2 QWCGK967-118 MG/DL, 3 WPACL851-079 MG/DL, 4 UFWRP071-949 MG/DL, 5 UNITS>= 400, 5 UNITS ANDOBTAIN STAT BS AND CALLRESULTS TO PHYSICIAN sodium chloride 9 MG/ML Injectable Solution MANSA98 Start:22-Wml-5835Xcp:2024 1 ML Sodium Chloride 9 MG/ML Prefilled Syringe;10 MILLILITER Q12HR Quantity:1 Howie Schroeder MD Start:11-Sep-2024 Status:Discontinued Comments:[id number] Administration Instructions:flush every shift and before after each IVmedication is administered pantoprazole 40 MG Delayed Release Oral Tablet [Protonix];40 MILLIGRAM DAILY Quantity:1 Start:11-Sep-2024 Status:Discontinued Comments:[id number] Administration Instructions:DO NOT CRUSH, CUT OR CHEW metoprolol tartrate 25 MG Oral Tablet;25 MILLIGRAM BID Quantity:1 Start:11-Sep-2024 Status:Discontinued Comments:[id number] apixaban 5 MG Oral Tablet [Eliquis];5 MILLIGRAM BID Quantity:1 Start:11-Sep-2024 Status:Discontinued Comments:[id number] clopidogrel 75 MG Oral Tablet [Plavix];75 MILLIGRAM DAILY Quantity:1 Start:11-Sep-2024 Status:Discontinued Comments:[id number] amLODIPine 5 MG Oral Tablet [Norvasc];10 MILLIGRAM DAILY Quantity:2 Start:11-Sep-2024 Status:Discontinued Comments:[id number] levETIRAcetam 500 MG Oral Tablet;500 MILLIGRAM BID Quantity:1 Start:11-Sep-2024 Status:Discontinued Comments:[id number] LOSARTAN POTASSIUM 50 MG TABLET_LOSA50TA;50 MILLIGRAM DAILY Quantity:1 Start:11-Sep-2024 Status:Discontinued Comments:[id number] thiamine 100 MG Oral Tablet;100 MILLIGRAM DAILY Quantity:1 Start:11-Sep-2024 Status:Discontinued Comments:[id number] folic acid 1 MG Oral Tablet;1 MILLIGRAM DAILY Quantity:1 Start:11-Sep-2024 Status:Discontinued Comments:[id number] THERAPEUTIC VIT/MIN_THEROT1034;1 TABLET DAILY Quantity:1 Start:11-Sep-2024 Status:Discontinued Comments:[id number] 24 HR isosorbide mononitrate 30 MG Extended Release Oral Tablet [Imdur];30 MILLIGRAM BID Quantity:1 MANS98 Start:11-Sep-2024 Status:Discontinued Comments:[id number] Administration Instructions:DO NOT CRUSH, CUT, OR CHEW 50 ML glucose 500 MG/ML Prefilled Syringe;[id number] Administration Instructions:If patient unable to swallow and has IV access* blood sugar 60-69 mg/dl- hold insulinand administer 15 mL (7.5 grams);* Blood sugar 50-59 mg/dl- hold insulinand administer 20 mL (10 grams);* Blood sugar 30-49 mg/dl- hold insulin and Quantity:0 A Start:11-Sep-2024 Status:Discontinued Comments:[id number] Administration Instructions:If patient unable to swallow and has IV access* blood sugar 60-69 mg/dl- hold insulinand administer 15 mL (7.5 grams);* Blood sugar 50-59 mg/dl- hold insulinand administer 20 mL (10 grams);* Blood sugar 30-49 mg/dl- hold insulin and glucose 4000 MG Chewable Tablet;16 GRAM ASDIR Quantity:4 Start:11-Sep-2024 Status:Discontinued Comments:[id number] Administration Instructions:* If patient asymptomatic, give juice and crackers and callthe physician* If patient able to swallow, give Glucose chewable qswvban25 gram orally as needed for blood glucose <60 orsymptomatic hypoglycemiaCHEW TABLETS THOROUGHLY BEFORE SWALLOWING LORazepam 2 MG/ML Injectable Solution;2 MILLIGRAM Q1H PRN Quantity:1 Start:11-Sep-2024 Status:Discontinued Comments:[id number] Administration Instructions:WHEN GIVIN IV INJECTION - MIX 1:1 WITH NS OR STERILE WATER LORazepam 2 MG/ML Injectable Solution;4 MILLIGRAM Q1H PRN Quantity:2 MANSA Start:11-Sep-2024 Status:Discontinued Comments:[id number] Administration Instructions:WHEN GIVIN IV INJECTION - MIX 1:1 WITH NS OR STERILE WATER ondansetron 2 MG/ML Injectable Solution [Zofran];4 MILLIGRAM Q8H PRN Quantity:1 Start:11-Sep-2024 Status:Discontinued Comments:[id number] Administration Instructions:4 MG dose may be given IV push over 2 MINUTESDoses > 4 mg: Use 50 mL D5W or 0.9% NaCl infuse over 15 minutes morphine SULFATE 2 MG/ML INJ (FK);2 MILLIGRAM X1ED Quantity:1 Start:50-Oie-3123Aii:2024 Comments:[id number] LORazepam 2 MG/ML Injectable Solution;1 MILLIGRAM X1ED Quantity:1 Start:99-Wau-5385Sfe:2024 Comments:[id number] Administration Instructions:WHEN GIVIN IV INJECTION - MIX 1:1 WITH NS OR STERILE WATER 1 ML Sodium Chloride 9 MG/ML Prefilled Syringe;10 MILLILITER ASDIR Quantity:1 Howie Schroeder MD Start:11-Sep-2024 Status:Discontinued Comments:[id number] Administration Instructions:flush every shift and before after each IVmedication is administered LORazepam 2 MG/ML Injectable Solution;1 MILLIGRAM X1ED Quantity:1 Start:30-Xcd-4569Ick:2024 Comments:[id number] Administration Instructions:WHEN GIVIN IV INJECTION - MIX 1:1 WITH NS OR STERILE WATER potassium chloride 20 MEQ Extended Release Oral Tablet [K-Dur];40 MILLIEQUIVALENT X1ED Quantity:2 Start:52-Qbm-0375Yrd:2024 Comments:[id number] Administration Instructions:Hold for KCl >5.1. DO NOT CUT CRUSH OR CHEW* EACH TABLET MAY BE DISOLVED IN 30 ML OF LIQUID TOMAKE SLURRY OF 20 MG/30 ML SOLN* aspirin 81 MG Chewable Tablet;324 MILLIGRAM X1ED Quantity:4 Start:05-Qod-4895Rei:2024 Comments:[id number] acetaminophen 325 MG Oral Tablet;650 MILLIGRAM Q6H PRN Quantity:2 Chava Parsons MD Start:10-Sep-2024 Status:Discontinued Comments:[id number] Administration Instructions:MAXIMUM DAILY DOSE OF ACETAMINOPHEN = 4000 MG clopidogrel 75 MG Oral Tablet [Plavix];75 MILLIGRAM DAILY Quantity:1 JANENE Travis MD Start:10-Sep-2024 Status:Discontinued Comments:[id number] LOSARTAN POTASSIUM 50 MG TABLET_LOSA50TA;50 MILLIGRAM DAILY Quantity:1 JANENE Travis MD Start:10-Sep-2024 Status:Discontinued Comments:[id number] amLODIPine 5 MG Oral Tablet [Norvasc];10 MILLIGRAM DAILY Quantity:2 JANENE Travis MD Start:10-Sep-2024 Status:Discontinued Comments:[id number] pantoprazole 40 MG Delayed Release Oral Tablet [Protonix];40 MILLIGRAM DAILY@0600 Quantity:1 JANENE Travis MD Start:10-Sep-2024 Status:Discontinued Comments:[id number] Administration Instructions:DO NOT CRUSH, CUT OR CHEW *Med List Information;1 EACH MISC .CANCEL AT DISCHARGE Start:10-Sep-2024 Comments:1 EA MISC .CANCEL AT DISCHARGE pantoprazole 40 MG Delayed Release Oral Tablet [Protonix];40 MILLIGRAM PO DAILY Start:10-Sep-2024 Comments:40 MG PO DAILY 1 ML Sodium Chloride 9 MG/ML Prefilled Syringe;10 MILLILITER Q12HR Quantity:1 Debi Baig MD Start:09-Sep-2024 Status:Discontinued Comments:[id number] Administration Instructions:flush every shift and before after each IVmedication is administered traZODone hydrochloride 50 MG Oral Tablet;50 MILLIGRAM BEDTIME Quantity:1 JANENE Travis MD Start:09-Sep-2024 Status:Discontinued Comments:[id number] atorvastatin 40 MG Oral Tablet [Lipitor];40 MILLIGRAM BEDTIME Quantity:1 JANENE Travis MD Start:09-Sep-2024 Status:Discontinued Comments:[id number] insulin, regular, human 100 UNT/ML Injectable Solution [HumuLIN R];[id number] Administration Instructions:REGULAR SLIDING SCALE [id number] MG/DL, 0 SKXDN445-633 MG/DL, 1 PUTSX418-214 MG/DL, 2 SKRRL319-264 MG/DL, 3 SHSIY167-511 MG/DL, 4 ZAWXX471-942 MG/DL, 5 UNITS>= 400, 5 UNITS ANDOBTAIN STAT BS AND CALLRESULTS TO PHYSICIAN Quantity:0 JANENE Travis MD Start:09-Sep-2024 Status:Discontinued Comments:[id number] Administration Instructions:REGULAR SLIDING SCALE UFMUWQZA98-044 MG/DL, 0 WFEZA510-739 MG/DL, 1 QMTCO779-612 MG/DL, 2 AYRWD452-028 MG/DL, 3 TCQNZ007-708 MG/DL, 4 QMDSQ144-361 MG/DL, 5 UNITS>= 400, 5 UNITS ANDOBTAIN STAT BS AND CALLRESULTS TO PHYSICIAN metoprolol tartrate 25 MG Oral Tablet;25 MILLIGRAM BID Quantity:1 JANENE Travis MD Start:09-Sep-2024 Status:Discontinued Comments:[id number] 24 HR isosorbide mononitrate 30 MG Extended Release Oral Tablet [Imdur];30 MILLIGRAM BID Quantity:1 JANENE Travis MD Start:09-Sep-2024 Status:Discontinued Comments:[id number] Administration Instructions:DO NOT CRUSH, CUT, OR CHEW levETIRAcetam 500 MG Oral Tablet;500 MILLIGRAM BID Quantity:1 JANENE Travis MD Start:09-Sep-2024 Status:Discontinued Comments:[id number] 50 ML glucose 500 MG/ML Prefilled Syringe;[id number] Administration Instructions:If patient unable to swallow and has IV access* blood sugar 60-69 mg/dl- hold insulinand administer 15 mL (7.5 grams);* Blood sugar 50-59 mg/dl- hold insulinand administer 20 mL (10 grams);* Blood sugar 30-49 mg/dl- hold insulin and Quantity:0 JANENE Travis MD Start:09-Sep-2024 Status:Discontinued Comments:[id number] Administration Instructions:If patient unable to swallow and has IV access* blood sugar 60-69 mg/dl- hold insulinand administer 15 mL (7.5 grams);* Blood sugar 50-59 mg/dl- hold insulinand administer 20 mL (10 grams);* Blood sugar 30-49 mg/dl- hold insulin and glucose 4000 MG Chewable Tablet;16 GRAM ASDIR Quantity:4 JANENE Travis MD Start:09-Sep-2024 Status:Discontinued Comments:[id number] Administration Instructions:* If patient asymptomatic, give juice and crackers and callthe physician* If patient able to swallow, give Glucose chewable fmhnsax05 gram orally as needed for blood glucose <60 orsymptomatic hypoglycemiaCHEW TABLETS THOROUGHLY BEFORE SWALLOWING folic acid 1 MG Oral Tablet;1 MILLIGRAM DAILY Quantity:1 JANENE Travis MD Start:09-Sep-2024 Status:Discontinued Comments:[id number] thiamine 100 MG Oral Tablet;100 MILLIGRAM DAILY Quantity:1 JANENE Travis MD Start:09-Sep-2024 Status:Discontinued Comments:[id number] LORazepam 2 MG/ML Injectable Solution;4 MILLIGRAM Q1H PRN Quantity:2 JANENE Travis MD Start:09-Sep-2024 Status:Discontinued Comments:[id number] Administration Instructions:WHEN GIVIN IV INJECTION - MIX 1:1 WITH NS OR STERILE WATER LORazepam 2 MG/ML Injectable Solution;2 MILLIGRAM Q1H PRN Quantity:1 JANENE Travis MD Start:09-Sep-2024 Status:Discontinued Comments:[id number] Administration Instructions:WHEN GIVIN IV INJECTION - MIX 1:1 WITH NS OR STERILE WATER 1 ML Sodium Chloride 9 MG/ML Prefilled Syringe;10 MILLILITER ASDIR Quantity:1 Debi Baig MD Start:09-Sep-2024 Status:Discontinued Comments:[id number] Administration Instructions:flush every shift and before after each IVmedication is administered 1 ML ketorolac tromethamine 15 MG/ML Injection;15 MILLIGRAM X1ED Quantity:1 Debi Baig MD Start:05-Ziu-8196Xuh:2024 Comments:[id number] lidocaine 0.04 MG/MG Medicated Patch;1 PATCH X1ED Quantity:1 Debi Baig MD Start:71-Wps-8915Zsv:2024 Comments:[id number] Administration Instructions:*May be administered concurrently with oral orinjectable pain medications if ordered.*Patch(es) may remain in place for up to 12 hours inany 24 hour period.*Apply the patch(es) to intact skin to cover the mostpainful area. sodium chloride 9 MG/ML Injectable Solution;[id number] Debi Baig MD Start:67-Sqg-3119Ehc:2024 Comments:[id number] potassium phosphate 155 MG / sodium phosphate, dibasic 852 MG / sodium phosphate, monobasic 130 MG Oral Tablet [K-Phos Neutral];500 MILLIGRAM ONCE Quantity:2 Gilbert Parsons MD Start:94-Ula-1826Kfg:05-Sep-2024 Comments:[id number] Administration Instructions:FOR NEUTRA-PHOS amLODIPine 5 MG Oral Tablet [Norvasc];10 MILLIGRAM DAILY Quantity:2 Chava Parsons MD Start:05-Sep-2024 Status:Discontinued Comments:[id number] magnesium oxide 400 MG Oral Tablet [Mag-Ox 400];400 MILLIGRAM DAILY Quantity:1 Chava Parsons MD Start:05-Sep-2024 Status:Discontinued Comments:[id number] clopidogrel 75 MG Oral Tablet [Plavix];75 MILLIGRAM DAILY Quantity:1 Chava Parsons MD Start:05-Sep-2024 Status:Discontinued Comments:[id number] LOSARTAN POTASSIUM 50 MG TABLET_LOSA50TA;50 MILLIGRAM DAILY Quantity:1 Chava Parsons MD Start:05-Sep-2024 Status:Discontinued Comments:[id number] 1 ML Sodium Chloride 9 MG/ML Prefilled Syringe;10 MILLILITER Q12HR Quantity:1 Jacky Jimenez MD Start:05-Sep-2024 Status:Discontinued Comments:[id number] Administration Instructions:flush every shift and before after each IVmedication is administered 24 HR isosorbide mononitrate 30 MG Extended Release Oral Tablet [Imdur];30 MILLIGRAM BID Quantity:1 Chava Parsons MD Start:05-Sep-2024 Status:Discontinued Comments:[id number] Administration Instructions:DO NOT CRUSH, CUT, OR CHEW insulin, regular, human 100 UNT/ML Injectable Solution [HumuLIN R];[id number] Administration Instructions:AGGRESSIVE SLIDING RETKR84-409 MG/DL, 0 GPLPF729-759 MG/DL, 2 HJVPP516-523 MG/DL, 4 ANYHU654-940 MG/DL, 6 OARAX646-752 MG/DL, 8 FXMJT320-707 MG/DL, 10 UNITS>= 400 MG/DL, 12 UNITS ANDCALL RESULTS TO PHYSICIANGlucose level <= 60 Quantity:0 Chava Parsons MD Start:05-Sep-2024 Status:Discontinued Comments:[id number] Administration Instructions:AGGRESSIVE SLIDING GYWQC56-394 MG/DL, 0 RWGIL133-812 MG/DL, 2 ROQLG546-213 MG/DL, 4 PAUAK555-755 MG/DL, 6 MQUWN579-330 MG/DL, 8 XKFXV019-916 MG/DL, 10 UNITS>= 400 MG/DL, 12 UNITS ANDCALL RESULTS TO PHYSICIANGlucose level <= 60 chlordiazePOXIDE hydrochloride 25 MG Oral Capsule;25 MILLIGRAM Q8H PRN Quantity:1 Chava Parsons MD Start:04-Sep-2024 Status:Discontinued Comments:[id number] acetaminophen 325 MG Oral Tablet;650 MILLIGRAM Q6H PRN Quantity:2 Chava Parsons MD Start:04-Sep-2024 Status:Discontinued Comments:[id number] Administration Instructions:MAXIMUM DAILY DOSE OF ACETAMINOPHEN = 4000 MG glucose 4000 MG Chewable Tablet;16 GRAM ASDIR Quantity:4 Chava Parsons MD Start:04-Sep-2024 Status:Discontinued Comments:[id number] Administration Instructions:* If patient asymptomatic, give juice and crackers and callthe physician* If patient able to swallow, give Glucose chewable pxdhnti94 gram orally as needed for blood glucose <60 orsymptomatic hypoglycemiaCHEW TABLETS THOROUGHLY BEFORE SWALLOWING 50 ML glucose 500 MG/ML Prefilled Syringe;[id number] Administration Instructions:If patient unable to swallow and has IV access* blood sugar 60-69 mg/dl- hold insulinand administer 15 mL (7.5 grams);* Blood sugar 50-59 mg/dl- hold insulinand administer 20 mL (10 grams);* Blood sugar 30-49 mg/dl- hold insulin and Quantity:0 Chava Parsons MD Start:04-Sep-2024 Status:Discontinued Comments:[id number] Administration Instructions:If patient unable to swallow and has IV access* blood sugar 60-69 mg/dl- hold insulinand administer 15 mL (7.5 grams);* Blood sugar 50-59 mg/dl- hold insulinand administer 20 mL (10 grams);* Blood sugar 30-49 mg/dl- hold insulin and LORazepam 2 MG/ML Injectable Solution;2 MILLIGRAM Q1H PRN Quantity:1 Chava Parsons MD Start:04-Sep-2024 Status:Discontinued Comments:[id number] Administration Instructions:WHEN GIVIN IV INJECTION - MIX 1:1 WITH NS OR STERILE WATER chlordiazePOXIDE hydrochloride 5 MG Oral Capsule;10 MILLIGRAM Q8H PRN Quantity:2 Chava Parsons MD Start:04-Sep-2024 Status:Discontinued Comments:[id number] insulin, regular, human 100 UNT/ML Injectable Solution [HumuLIN R];10 UNITS NOW Quantity:1 Chava Parsons MD Start:08-Hsu-3608Jue:04-Sep-2024 Comments:[id number] Administration Instructions:HIGH ALERT DRUG< >< >< >Caution, Look Alike Sound Alike< >< >< >*DISPOSE OF UNUSED INSULIN IN BLACK BOX* lidocaine 0.04 MG/MG Medicated Patch;1 PATCH DAILY Quantity:1 Chava Parsons MD Start:04-Sep-2024 Status:Discontinued Comments:[id number] Administration Instructions:*May be administered concurrently with oral orinjectable pain medications if ordered.*Patch(es) may remain in place for up to 12 hours inany 24 hour period.*Apply the patch(es) to intact skin to cover the mostpainful area. metoprolol tartrate 25 MG Oral Tablet;25 MILLIGRAM BID Quantity:1 Chava Parsons MD Start:04-Sep-2024 Status:Discontinued Comments:[id number] apixaban 5 MG Oral Tablet [Eliquis];5 MILLIGRAM BID Quantity:1 Chava Parsons MD Start:04-Sep-2024 Status:Discontinued Comments:[id number] traZODone hydrochloride 50 MG Oral Tablet;50 MILLIGRAM BEDTIME Quantity:1 Chava Parsons MD Start:04-Sep-2024 Status:Discontinued Comments:[id number] atorvastatin 40 MG Oral Tablet [Lipitor];40 MILLIGRAM BEDTIME Quantity:1 Chava Parsons MD Start:04-Sep-2024 Status:Discontinued Comments:[id number] levETIRAcetam 500 MG Oral Tablet;500 MILLIGRAM BID Quantity:1 Chava Parsons MD Start:04-Sep-2024 Status:Discontinued Comments:[id number] acetaminophen 325 MG Oral Tablet;325 MILLIGRAM Q6H PRN Quantity:1 Chava Parsons MD Start:04-Sep-2024 Status:Discontinued Comments:[id number] Administration Instructions:MAXIMUM DAILY DOSE OF ACETAMINOPHEN = 4000 MG ondansetron 2 MG/ML Injectable Solution [Zofran];4 MILLIGRAM Q8H PRN Quantity:1 Chava Parsons MD Start:04-Sep-2024 Status:Discontinued Comments:[id number] Administration Instructions:4 MG dose may be given IV push over 2 MINUTESDoses > 4 mg: Use 50 mL D5W or 0.9% NaCl infuse over 15 minutes nitroglycerin 0.4 MG Sublingual Tablet;0.4 MILLIGRAM Q5M PRN Quantity:1 Chava Parsons MD Start:04-Sep-2024 Status:Discontinued Comments:[id number] Administration Instructions:x 3 doses hold for SBP less than 90 mm Hg morphine SULFATE 2 MG/ML INJ (FK);2 MILLIGRAM Q4H PRN Quantity:1 Chava Parsons MD Start:04-Sep-2024 Status:Discontinued Comments:[id number] Administration Instructions:For patients not responding to oral medication (Defined aspain reassessment score of 7 or greater) or patient NPO 1 ML Sodium Chloride 9 MG/ML Prefilled Syringe;10 MILLILITER ASDIR Quantity:1 Jacky Jimenez MD Start:04-Sep-2024 Status:Discontinued Comments:[id number] Administration Instructions:flush every shift and before after each IVmedication is administered potassium chloride 20 MEQ Extended Release Oral Tablet [K-Dur];40 MILLIEQUIVALENT X1ED Quantity:2 Nya Longoria MD Start:43-Lcq-0448Que:2024 Comments:[id number] Administration Instructions:Hold for KCl >5.1. DO NOT CUT CRUSH OR CHEW* EACH TABLET MAY BE DISOLVED IN 30 ML OF LIQUID [place]KE SLURRY OF 20 MG/30 ML SOLN* sodium chloride 9 MG/ML Injectable Solution;[id number] Nya Longoria MD Start:17-Cgg-7448Zfr:2024 Comments:[id number] aspirin 81 MG Chewable Tablet;324 MILLIGRAM X1ED Quantity:4 Nya Longoria MD Start:03-Oam-3855Cel:2024 Comments:[id number] empagliflozin 10 MG Oral Tablet [Jardiance];10 MILLIGRAM PO QAM Start:04-Sep-2024 Comments:10 MG PO QAM carvedilol 3.125 MG Oral Tablet;3.125 MILLIGRAM PO BID PRN Start:04-Sep-2024 Status:Discontinued Comments:3.125 MG PO BID PRN As Needed for SBP GREATER THAN 160 acetaminophen 325 MG / oxyCODONE hydrochloride 5 MG Oral Tablet;1 TABLET X1ED Quantity:1 ARNAN99 Start:00-Yms-0761Uvv:2024 Comments:[id number] aspirin 81 MG Chewable Tablet;324 MILLIGRAM X1ED Quantity:4 ARNAN99 Start:67-Lxz-3226Pwr:2024 Comments:[id number] diclofenac sodium 0.01 MG/MG Topical Gel;2 GRAM QID Quantity:1 Richard Parsons MD Start:29-Aug-2024 Status:Discontinued Comments:[id number] Administration Instructions:The proper amount of Diclofenac Sodium Topical Gel should bemeasured using the dosing card supplied in the drug productcarton. The gel should be applied within the rectangulararea of the dosing card up to the 2 gram or 4 gram line. iopamidol;65 MILLILITER .STK-MED Quantity:65 Arnulfo Spain MD Start:92-Uyo-4979Lfm:2024 midazolam 1 MG/ML Injectable Solution Quantity:1 Richard Parsons MD Start:29-Aug-2024 Status:Discontinued 2 ML fentaNYL 0.05 MG/ML Injection Quantity:1 Richard Parsons MD Start:29-Aug-2024 Status:Discontinued lidocaine hydrochloride 20 MG/ML Injectable Solution Quantity:1 Richard Parsons MD Start:29-Aug-2024 Status:Discontinued Heparin sodium 2 UNT/ML Injectable Solution Quantity:1 Richard Parsons MD Start:29-Aug-2024 Status:Discontinued sodium chloride 9 MG/ML Injectable Solution;[id number] Richard Parsons MD Start:63-Wzn-8309Yzz:2024 Comments:[id number] Pain Relief Patch;1 PATCH TRANSDERMAL DAILY Start:29-Aug-2024 Status:Discontinued Comments:1 PATCH TRANSDERM DAILY metoprolol tartrate 25 MG Oral Tablet;25 MILLIGRAM PO BID Start:29-Aug-2024 Comments:25 MG PO BID clopidogrel 75 MG Oral Tablet;75 MILLIGRAM PO DAILY Start:29-Aug-2024 Comments:75 MG PO DAILY amLODIPine 10 MG Oral Tablet;10 MILLIGRAM PO DAILY Start:29-Aug-2024 Comments:10 MG PO DAILY apixaban 5 MG Oral Tablet [Eliquis];5 MILLIGRAM PO BID Start:29-Aug-2024 Comments:5 MG PO BID 24 HR isosorbide mononitrate 30 MG Extended Release Oral Tablet;30 MILLIGRAM PO BID Start:29-Aug-2024 Comments:30 MG PO BID sodium chloride 9 MG/ML Injectable Solution;[id number] Richard Parsons MD Start:26-Rvl-2608Rad:2024 Comments:[id number] LOSARTAN POTASSIUM 50 MG TABLET_LOSA50TA;50 MILLIGRAM DAILY Quantity:1 Dixon Parsons MD Start:28-Aug-2024 Status:Discontinued Comments:[id number] 24 HR isosorbide mononitrate 30 MG Extended Release Oral Tablet [Imdur];30 MILLIGRAM BID Quantity:1 Richard Parsons MD Start:28-Aug-2024 Status:Discontinued Comments:[id number] Administration Instructions:DO NOT CRUSH, CUT, OR CHEW amLODIPine 5 MG Oral Tablet [Norvasc];10 MILLIGRAM DAILY Quantity:2 Richard Parsons MD Start:28-Aug-2024 Status:Discontinued Comments:[id number] amLODIPine 5 MG Oral Tablet [Norvasc];5 MILLIGRAM DAILY Quantity:1 Dixon Parsons MD Start:28-Aug-2024 Status:Discontinued Comments:[id number] LOSARTAN POTASSIUM 50 MG TABLET_LOSA50TA;100 MILLIGRAM DAILY Quantity:2 Dixon Parsons MD Start:28-Aug-2024 Status:Discontinued Comments:[id number] budesonide 0.25 MG/ML Inhalation Suspension [Pulmicort];0.5 MILLIGRAM RTBID Quantity:1 Dominique Parsons Start:27-Aug-2024 Status:Discontinued Comments:[id number] ipratropium bromide 0.2 MG/ML Inhalation Solution;0.5 MILLIGRAM ONCE Quantity:1 Dominique Parsons Start:50-Oah-0542Idc:2024 Comments:[id number] regadenoson;0.4 MILLIGRAM PROCEDURE Quantity:1 Arnulfo Spain MD Start:29-Ege-6031Yoh:2024 Comments:[id number] Administration Instructions: STRESS TEST 1 ML Sodium Chloride 9 MG/ML Prefilled Syringe;5 MILLILITER PROCEDURE Quantity:1 Arnulfo Spain MD Start:47-Kzn-6871Vci:2024 Comments:[id number] Administration Instructions: STRESS TEST Aminophylline 25 MG/ML Injectable Solution;100 MILLIGRAM PROCEDURE Quantity:1 Arnulfo Spain MD Start:29-Uxz-2300Grd:2024 Comments:[id number] Administration Instructions:For Stress Test, 2 minutes post nuclear isotope injection sodium chloride 9 MG/ML Injectable Solution;[id number] Administration Instructions: STRESS TEST Arnulfo Spain MD Start:15-Its-8763Yvb:2024 Comments:[id number] Administration Instructions: STRESS TEST ipratropium bromide 0.2 MG/ML Inhalation Solution;0.5 MILLIGRAM ONCE Quantity:1 Dominique Parsons Start:24-Ckj-9726Xdp:2024 Comments:[id number] budesonide 0.125 MG/ML Inhalation Suspension [Pulmicort];0.25 MILLIGRAM ONCE Quantity:1 Dominique Hunter R1 Start:70-Rmp-2482Lns:2024 Comments:[id number] atorvastatin 40 MG Oral Tablet [Lipitor];40 MILLIGRAM BEDTIME Quantity:1 Dominique Hunter R1 Start:26-Aug-2024 Status:Discontinued Comments:[id number] traZODone hydrochloride 50 MG Oral Tablet;50 MILLIGRAM BEDTIME Quantity:1 Dominique Hunter R1 Start:26-Aug-2024 Status:Discontinued Comments:[id number] nitroglycerin 0.02 MG/MG Topical Ointment [Nitro-Bid];1 INCH Q6HR Quantity:1 Dixon Parsons MD Start:26-Aug-2024 Status:Discontinued Comments:[id number] Administration Instructions:1 GM = [address] ORTIZ 08/26 @1325CONTINUE IT WITH NITOGLYCERIN 0.4 MG SL Q5M PRN ANDISOSORBIDE MONO 30MG DAILY BECAUSE PATIENT HAS CHEST PAIN potassium chloride 20 MEQ Extended Release Oral Tablet [K-Dur];20 MILLIEQUIVALENT Q2H PRN Quantity:1 Arnulfo Spain MD Start:26-Aug-2024 Status:Discontinued Comments:[id number] Administration Instructions:Potassium Level Replacement < 2.5 mEq/L2.5-3.1 mEq/L 20 mEq q2hr x 33.2-3.5 mEq/L 20 mEq q2hr x 23.6-4.0 mEq/L 20 mEq x 1 doseLabs- Upon initiation of electrolyte replacement: potassium bicarbonate 10 MEQ Effervescent Oral Tablet [Effer-K];20 MILLIEQUIVALENT Q2H PRN Quantity:2 Arnulfo Spain MD Start:26-Aug-2024 Status:Discontinued Comments:[id number] Administration Instructions:* Dissolve in 60 to 90 mL of cold water (flavoredtablets) or juice (unflavored tablets) beforeadministration.* Do NOT crush or chew* Administer with or immediately after food. Each doseshould be dissolved in appropriate amount of liquid and 100 ML potassium chloride 0.1 MEQ/ML Injection;[id number] Administration Instructions:Potassium Level via Peripheral Line (Max rate: 10 mEq/hr) < 2.5 mEq/L 10 mEq q2hr x 6 and notify physician2.5-3.1 mEq/L 10 mEq q2hr x 63.2-3.5 mEq/L 10 mEq q2hr x 4 Arnulfo Spain MD Start:26-Aug-2024 Status:Discontinued Comments:[id number] Administration Instructions:Potassium Level via Peripheral Line (Max rate: 10 mEq/hr) < 2.5 mEq/L 10 mEq q2hr x 6 and notify physician2.5-3.1 mEq/L 10 mEq q2hr x 63.2-3.5 mEq/L 10 mEq q2hr x 4 100 ML magnesium sulfate 40 MG/ML Injection;[id number] Administration Instructions:Magnesium Level Mag Replacement Dose ----< 1.3 mg/dL Magnesium Sulfate 4 gm IV x 1 doses andnotify physician1.3 - 1.5 mg/dL Magnesium Oxide 400 mg (PO/feeding tube)q4hr x 3 doses Arnulfo Spain MD Start:26-Aug-2024 Status:Discontinued Comments:[id number] Administration Instructions:Magnesium Level Mag Replacement Dose < 1.3 mg/dL Magnesium Sulfate 4 gm IV x 1 doses andnotify physician1.3 - 1.5 mg/dL Magnesium Oxide 400 mg (PO/feeding tube)q4hr x 3 doses magnesium oxide 400 MG Oral Tablet [Mag-Ox 400];400 MILLIGRAM Q4H PRN Quantity:1 Arnulfo Spain MD Start:26-Aug-2024 Status:Discontinued Comments:[id number] Administration Instructions:Mag 1.3-1.5 mg/dL Magnesium Oxide 400 mg (PO/feeding tube)q4hr x 3 dosesOR Magnesium Sulfate 4 gm IV x 1 dose ifpatient NPORecheck Magnesiumn Level in AM Sotalol Hydrochloride 80 MG Oral Tablet;80 MILLIGRAM Q12HR Quantity:1 Arnulfo Spain MD Start:26-Aug-2024 Status:Discontinued Comments:[id number] sodium chloride 9 MG/ML Injectable Solution;[id number] Richard Parsons MD Start:50-Sje-9510Ubv:2024 Comments:[id number] 24 HR isosorbide mononitrate 30 MG Extended Release Oral Tablet [Imdur];30 MILLIGRAM DAILY Quantity:1 Richard Parsons MD Start:26-Aug-2024 Status:Discontinued Comments:[id number] Administration Instructions:DO NOT CRUSH, CUT, OR CHEW morphine SULFATE 2 MG/ML INJ (FK);2 MILLIGRAM ONCE Quantity:1 Richard Parsons MD Start:41-Vdl-1492Otf:2024 Comments:[id number] Heparin sodium 5000 UNT/ML Injectable Solution;4000 UNITS BOLUS Quantity:1 Richard Parsons MD Start:73-Wer-1595Emf:2024 Comments:[id number] Administration Instructions:Maximum Bolus Dose = 4,000 unitsFT.4000 Heparin sodium 5000 UNT/ML Injectable Solution;2000 UNITS ASDIR Quantity:1 Richard Parsons MD Start:26-Aug-2024 Status:Discontinued Comments:[id number] Administration Instructions:Rebolus 40 units/kg (aPTT 48-57), recheck aPTT in 6 hours(Max Dose = 2,000 units)FT.2000 Heparin sodium 5000 UNT/ML Injectable Solution;4000 UNITS ASDIR Quantity:1 Richard Parsons MD Start:26-Aug-2024 Status:Discontinued Comments:[id number] Administration Instructions:Rebolus 80 units/kg (aPTT < 48), recheck aPTT in 6 hours(Max Dose = 4,000 units)FT.4000 500 ML heparin sodium, porcine 50 UNT/ML Injection;[id number] Administration Instructions:INITIAL WT: 77.7KG (08/26/24)In [facility] adjust *DOSE* units/kg/hrSEND RX A MSG W/ EACH RATE CHANGE HIGH ALERT MEDICATION Richard Parsons MD Start:26-Aug-2024 Status:Discontinued Comments:[id number] Administration Instructions:INITIAL WT: 77.7KG (08/26/24)In [facility]IS adjust *DOSE* units/kg/hrSEND RX A MSG W/ EACH RATE CHANGE HIGH ALERT MEDICATION NO IM MEDICATIONS;1 EACH ASDIR Quantity:1 Richard Parsons MD Start:26-Aug-2024 Status:Discontinued Comments:[id number] clopidogrel 75 MG Oral Tablet [Plavix];75 MILLIGRAM DAILY Quantity:1 Dominique Parsons Start:26-Aug-2024 Status:Discontinued Comments:[id number] levETIRAcetam 500 MG Oral Tablet;500 MILLIGRAM BID Quantity:1 Dominique Parsons Start:26-Aug-2024 Status:Discontinued Comments:[id number] 1 ML Sodium Chloride 9 MG/ML Prefilled Syringe;10 MILLILITER Q12HR Quantity:1 Nya Longoria MD Start:26-Aug-2024 Status:Discontinued Comments:[id number] Administration Instructions:flush every shift and before after each IVmedication is administered lidocaine 0.04 MG/MG Medicated Patch;1 PATCH DAILY Quantity:1 Dominique Parsons Start:26-Aug-2024 Status:Discontinued Comments:[id number] Administration Instructions:*May be administered concurrently with oral orinjectable pain medications if ordered.*Patch(es) may remain in place for up to 12 hours inany 24 hour period.*Apply the patch(es) to intact skin to cover the mostpainful area. folic acid 1 MG Oral Tablet;1 MILLIGRAM DAILY Quantity:1 Dominique Parsons Start:26-Aug-2024 Status:Discontinued Comments:[id number] thiamine 100 MG Oral Tablet;100 MILLIGRAM DAILY Quantity:1 Dominique Parsons Start:26-Aug-2024 Status:Discontinued Comments:[id number] apixaban 5 MG Oral Tablet [Eliquis];5 MILLIGRAM BID Quantity:1 Dominique Parsons Start:26-Aug-2024 Status:Discontinued Comments:[id number] LOSARTAN POTASSIUM 50 MG TABLET_LOSA50TA;50 MILLIGRAM DAILY Quantity:1 Dominique Parsons Start:26-Aug-2024 Status:Discontinued Comments:[id number] sodium chloride 9 MG/ML Injectable Solution;[id number] Richard Parsons MD Start:42-Sir-2047Dyg:2024 Comments:[id number] insulin, regular, human 100 UNT/ML Injectable Solution [HumuLIN R];[id number] Administration Instructions:AGGRESSIVE SLIDING FDPYW19-093 MG/DL, 0 KWMNT402-404 MG/DL, 2 AEGRU394-175 MG/DL, 4 MCRBQ134-950 MG/DL, 6 JFOCA078-790 MG/DL, 8 VAXRD288-968 MG/DL, 10 UNITS>= 400 MG/DL, 12 UNITS ANDCALL RESULTS TO PHYSICIANGlucose level <= 60 Quantity:0 Dominique Parsons Start:26-Aug-2024 Status:Discontinued Comments:[id number] Administration Instructions:AGGRESSIVE SLIDING ZUNHO46-178 MG/DL, 0 CGDCF520-500 MG/DL, 2 SALQF719-785 MG/DL, 4 JJLJL914-788 MG/DL, 6 [id number] MG/DL, 8 [id number] MG/DL, 10 UNITS>= 400 MG/DL, 12 UNITS ANDCALL RESULTS TO PHYSICIANGlucose level <= 60 1 ML Sodium Chloride 9 MG/ML Prefilled Syringe;10 MILLILITER ASDIR Quantity:1 Nya Longoria MD Start:26-Aug-2024 Status:Discontinued Comments:[id number] Administration Instructions:flush every shift and before after each IVmedication is administered dilTIAZem hydrochloride 60 MG Oral Tablet;60 MILLIGRAM TID Quantity:1 Dominique Parsons Start:26-Aug-2024 Status:Discontinued Comments:[id number] Administration Instructions:CARDIZEM, CARTIA, TIAZAC chlordiazePOXIDE hydrochloride 5 MG Oral Capsule;10 MILLIGRAM TID Quantity:2 Dominique Parsons Start:26-Aug-2024 Status:Discontinued Comments:[id number] cloNIDine hydrochloride 0.1 MG Oral Tablet;0.1 MILLIGRAM DAILY Quantity:1 Dominique Parsons Start:26-Aug-2024 Status:Discontinued Comments:[id number] Administration Instructions:< >< >< >Caution, Look Alike Sound Alike< >< >< > HumaLOG;10 UNITS ONCE Quantity:1 Dominique Parsons Start:17-Xag-1302Dzb:2024 Comments:[id number] ondansetron 4 MG Disintegrating Oral Tablet;4 MILLIGRAM Q4H PRN Quantity:1 Dominique Parsons Start:26-Aug-2024 Status:Discontinued Comments:[id number] Administration Instructions:* Place tablet on the tongue; it will dissolve in seconds.* Once dissolved, the patient may swallow with saliva.* DO NOT attempt to push ODT tablets through foil backing.* With dry hands, peel back the foil of 1 blister andremove the tablet. morphine SULFATE 2 MG/ML INJ (FK);2 MILLIGRAM Q2H PRN Quantity:1 Dominique Parsons Start:26-Aug-2024 Status:Discontinued Comments:[id number] 50 ML glucose 500 MG/ML Prefilled Syringe;[id number] Administration Instructions:If patient unable to swallow and has IV access* blood sugar 60-69 mg/dl- hold insulinand administer 15 mL (7.5 grams);* Blood sugar 50-59 mg/dl- hold insulinand administer 20 mL (10 grams);* Blood sugar 30-49 mg/dl- hold insulin and Quantity:0 Dominique Hunter R1 Start:26-Aug-2024 Status:Discontinued Comments:[id number] Administration Instructions:If patient unable to swallow and has IV access* blood sugar 60-69 mg/dl- hold insulinand administer 15 mL (7.5 grams);* Blood sugar 50-59 mg/dl- hold insulinand administer 20 mL (10 grams);* Blood sugar 30-49 mg/dl- hold insulin and glucose 4000 MG Chewable Tablet;16 GRAM ASDIR Quantity:4 Dominique Hunter R1 Start:26-Aug-2024 Status:Discontinued Comments:[id number] Administration Instructions:* If patient asymptomatic, give juice and crackers and callthe physician* If patient able to swallow, give Glucose chewable tzjtuws83 gram orally as needed for blood glucose <60 orsymptomatic hypoglycemiaCHEW TABLETS THOROUGHLY BEFORE SWALLOWING nitroglycerin 0.4 MG Sublingual Tablet;0.4 MILLIGRAM Q5M PRN Quantity:1 Dominique Hunter R1 Start:26-Aug-2024 Status:Discontinued Comments:[id number] Administration Instructions:x 3 doses hold for SBP less than 90 mm Hg 100 ML magnesium sulfate 10 MG/ML Injection;[id number] Administration Instructions:conc. 1 g / 100 ml Dominique Hunter R1 Start:18-Nnf-6855Gwj:2024 Comments:[id number] Administration Instructions:conc. 1 g / 100 ml LORazepam 2 MG/ML Injectable Solution;2 MILLIGRAM Q1H PRN Quantity:1 Dominique Hunter R1 Start:26-Aug-2024 Status:Discontinued Comments:[id number] Administration Instructions:WHEN GIVIN IV INJECTION - MIX 1:1 WITH NS OR STERILE WATER LORazepam 2 MG/ML Injectable Solution;4 MILLIGRAM Q1H PRN Quantity:2 Dominique Hunter R1 Start:26-Aug-2024 Status:Discontinued Comments:[id number] Administration Instructions:WHEN GIVIN IV INJECTION - MIX 1:1 WITH NS OR STERILE WATER 1 ML ketorolac tromethamine 30 MG/ML Prefilled Syringe;30 MILLIGRAM X1ED Quantity:1 Nya Longoria MD Start:75-Nwy-8150Cen:2024 Comments:[id number] Administration Instructions:WHEN GIVEN IV, MUST BE OVER NO LESS THAN 15 SECONDS potassium chloride 20 MEQ Extended Release Oral Tablet [K-Dur];40 MILLIEQUIVALENT X1ED Quantity:2 Nya Longoria MD Start:76-Wgx-4318Cpl:2024 Comments:[id number] Administration Instructions:Hold for KCl >5.1. DO NOT CUT CRUSH OR CHEW* EACH TABLET MAY BE DISOLVED IN 30 ML OF LIQUID TOMAKE SLURRY OF 20 MG/30 ML SOLN* insulin, regular, human 100 UNT/ML Injectable Solution [HumuLIN R];5 UNITS X1ED Quantity:1 Nya Longoria MD Start:67-Gxm-1137Qgy:2024 Comments:[id number] Administration Instructions:HIGH ALERT DRUG< >< >< >Caution, Look Alike Sound Alike< >< >< >*DISPOSE OF UNUSED INSULIN IN BLACK BOX* IOPAMIDOL_ISOV500I;[id number] Nya Longoria MD Start:09-Awv-4084Pcg:2024 Comments:[id number] Potassium Chloride 0.2 MEQ/ML Injectable Solution;[id number] Administration Instructions:Hold for KCl >5.1 Nya Longoria MD Start:98-Uoq-1844Xtj:2024 Comments:[id number] Administration Instructions:Hold for KCl >5.1 aspirin 81 MG Chewable Tablet;324 MILLIGRAM X1ED Quantity:4 Nya Longoria MD Start:78-Hib-5756Cgq:2024 Comments:[id number] 1 ML morphine sulfate 4 MG/ML Prefilled Syringe;4 MILLIGRAM X1ED Quantity:1 Nya Longoria MD Start:88-Uwx-1268Cxe:2024 Comments:[id number] Administration Instructions:IF PATIENT IS TAKING ORAL, PLEASE CALL PHARMACY. acetaminophen 325 MG Oral Tablet;325 MILLIGRAM PO Q6H PRN Start:26-Aug-2024 Status:Discontinued Comments:325 MG PO Q6H PRN As Needed for PAIN cloNIDine hydrochloride 0.1 MG Oral Tablet;0.1 MILLIGRAM PO DAILY Start:26-Aug-2024 Status:Discontinued Comments:0.1 MG PO DAILY As Needed for SBP > 180 OR DBP > 100 traZODone hydrochloride 50 MG Oral Tablet;50 MILLIGRAM PO BEDTIME Start:26-Aug-2024 Comments:50 MG PO BEDTIME glipiZIDE 5 MG Oral Tablet [Glucotrol];5 MILLIGRAM PO BID Start:26-Aug-2024 Comments:5 MG PO BID levETIRAcetam 500 MG Oral Tablet;500 MILLIGRAM PO BID Start:26-Aug-2024 Comments:500 MG PO BID metFORMIN hydrochloride 1000 MG Oral Tablet;1000 MILLIGRAM PO BID MEALS Start:26-Aug-2024 Comments:1000 MG PO BID MEALS magnesium oxide 400 MG Oral Tablet;400 MILLIGRAM PO DAILY Start:26-Aug-2024 Comments:400 MG PO DAILY vitamin B6 100 MG Oral Tablet;100 MILLIGRAM PO DAILY Start:26-Aug-2024 Comments:100 MG PO DAILY losartan potassium 50 MG Oral Tablet;50 MILLIGRAM PO DAILY Start:26-Aug-2024 Comments:50 MG PO DAILY POTASSIUM GLUCONATE;99 MILLIGRAM PO DAILY Start:26-Aug-2024 Status:Discontinued Comments:99 MG PO DAILY carvedilol 3.125 MG Oral Tablet;3.125 MILLIGRAM PO BID MEALS Start:26-Aug-2024 Status:Discontinued Comments:3.125 MG PO BID MEALS atorvastatin 40 MG Oral Tablet;40 MILLIGRAM PO BEDTIME Start:26-Aug-2024 Comments:40 MG PO BEDTIME TRULICITY;0.75 MILLIGRAM SUBCUTANEOUS Grey Start:26-Aug-2024 Comments:0.75 MG SUBQ Grey folic acid 1 MG Oral Tablet;1 MILLIGRAM PO DAILY Start:26-Aug-2024 Comments:1 MG PO DAILY Ergocalciferol 1.25 MG Oral Capsule;1250 MICROGRAM PO Grey Start:26-Aug-2024 Comments:1250 MCG PO Grey vitamin B12 1 MG Oral Tablet;1000 MICROGRAM PO DAILY Start:26-Aug-2024 Comments:1000 MCG PO DAILY sodium chloride 9 MG/ML Injectable Solution;[id number] Nya Longoria MD Start:0-Cij-6692Mad: 025 Comments:[id number] calcium chloride 0.2 MG/ML / potassium chloride 0.3 MG/ML / sodium chloride 6 MG/ML / sodium lactate 3.1 MG/ML Injectable Solution;[id number] Chu Francisco MD Start:93-Iim-1053Xtl:2024 Comments:[id number] insulin, regular, human 100 UNT/ML Injectable Solution;5 UNITS X1ED Quantity:1 Chu Francisco MD Start:67-Ioj-6223Ygn:2024 Comments:[id number] Administration Instructions: May be substituted for NOVOlin R per policy Dispose of leftover medication vials in a BlackHazardous Toxic [employer] Pharm[employer] Waste containerdue to the presence of M-Cresol calcium chloride 0.2 MG/ML / potassium chloride 0.3 MG/ML / sodium chloride 6 MG/ML / sodium lactate 3.1 MG/ML Injectable Solution;[id number] Chu Francisco MD Start:20-Gbm-4573Drr:2024 Comments:[id number] ibuprofen 600 MG Oral Tablet;600 MILLIGRAM X1ED Quantity:1 Chu Francisco MD Start:39-Mdp-1434Niv:2024 Comments:[id number] Administration Instructions:MAY BE SUBSTITUTED FOR ORUDIS 50MG OR TOLECTIN 600MGTAKE WITH FOOD OR MILK DO NOT EXCEED 3200MG IBUPROFEN (MOTRIN) IN 24 HOURS sodium chloride 9 MG/ML Injectable Solution;1000 MILLILITERS BOLUS ONCE Quantity:1 Marco A Willams MD Start:4-Azz-2144Cdo:19-Jun-19 Comments:[id number] ondansetron 2 MG/ML Injectable Solution [Zofran];4 MILLIGRAM X1ED Quantity:1 Marco A Willams MD Start:8-Ozd-3187Ouc:19-Jun-19 Comments:[id number] Administration Instructions: IV PUSH OVER AT LEAST 30 SECONDS ketorolac tromethamine 30 MG/ML Injectable Solution;15 MILLIGRAM X1ED Quantity:1 Bassam Lopez DO Start:9-Vsz-7144Uyp:19-Apr-19 Comments:[id number] Administration Instructions: Do NOT exceed 120 mg parenteral Ketorolac (Toradol) in24 hours Ketorolac should not be given for longer than 5consecutive days, regardless of route or indication, due toincreased potential for higher incidence severity of GI sodium chloride 9 MG/ML Injectable Solution;1000 MILLILITERS X1ED Quantity:1 Bassam Lopez DO Start:0-Pwm-0377Wna:19-Apr-19 Comments:[id number] diphenhydrAMINE hydrochloride 50 MG/ML Injectable Solution;25 MILLIGRAM Q6H PRN Quantity:1 Aman Heath MD Start:20-Gxd-4967Miu:2024 Status:Discontinued Comments:[id number] sodium chloride 9 MG/ML Injectable Solution;500 MILLILITERS BOLUS Quantity:1 Aman Heath MD Start:43-Xfp-7851Ond:2024 Status:Discontinued Comments:[id number] carvedilol 12.5 MG Oral Tablet [Coreg];12.5 MILLIGRAM Q12HR Quantity:1 Bar Crooks MD Start:55-Wvq-7316Axn:2024 Status:Discontinued Comments:[id number] Administration Instructions:MAY BE SUBSTITUTED FOR COREG CR 40MG DAILY PER PROTOCOLAVOID WITH GRAPEFRUIT JUICE Multi Vitamin;1 TABLET DAILY Quantity:1 Vincent Jimenez DO Start:14-Xuf-7090Cwy:2024 Status:Discontinued Comments:[id number] Administration Instructions:FORMULARY SUBSTITUTE FOR ALL MULTIVITAMIN WITHOUT MINERALSPRODUCTS folic acid 1 MG Oral Tablet;1 MILLIGRAM DAILY Quantity:1 Vincent Jimenez DO Start:73-Wku-7242Fph:2024 Status:Discontinued Comments:[id number] LORazepam 2 MG/ML Injectable Solution;1 MILLIGRAM Q2H PRN Quantity:1 Aman Heath MD Start:73-Nqo-2596Xxe: Status:Discontinued Comments:[id number] Administration Instructions:IF USED IV: DILUTE IV DOSE WITH EQUAL VOLUME NS OR STERILEWATER DILUENT---Do not exceed 2mg/minuteLOOK ALIKE/SOUND ALIKE DRUGDO NOT CONFUSE WITH ALPRAZolam!!! LORazepam 2 MG/ML Injectable Solution;1 MILLIGRAM ONCE Quantity:1 Aman Heath MD Start:74-Buv-2557Iia:2023 Comments:[id number] Administration Instructions:IF USED IV: DILUTE IV DOSE WITH EQUAL VOLUME NS OR STERILEWATER DILUENT---Do not exceed 2mg/minuteLOOK ALIKE/SOUND ALIKE DRUGDO NOT CONFUSE WITH ALPRAZolam!!! ATORVASTATIN CALCIUM 40 MG TABLET;40 MILLIGRAM BEDTIME Quantity:1 Aman Heath MD Start:14-Aoe-6574Bji:2024 Status:Discontinued Comments:[id number] Administration Instructions: THIS MED MAY BE SUBSTITUTED FOR SIMVASTATIN 80MG thiamine 100 MG Oral Tablet;100 MILLIGRAM BID Quantity:1 Vincent Jimenez DO Start:47-Kny-3422Dua:2024 Status:Discontinued Comments:[id number] Administration Instructions:If unable to take by mouth give IVPB potassium chloride 20 MEQ Extended Release Oral Tablet;40 MILLIEQUIVALENT ONCE Quantity:2 Vincent Jimenez DO Start:92-Gil-5882Nyg:2023 Comments:[id number] Administration Instructions:USE FOR K-DUR TAB ORDERSDO NOT CRUSHGIVE WITH 4-8 OUNCES OF WATER OR FRUIT JUICEMAY DISSOLVE IN 5-10ML OF WATER BEFORE GIVING 1 ML morphine sulfate 4 MG/ML Prefilled Syringe;4 MILLIGRAM Q4H PRN Quantity:1 Vincent Jimenez DO Start:18-Uvu-0509Zpz: Status:Discontinued Comments:[id number] potassium chloride 20 MEQ Extended Release Oral Tablet;40 MILLIEQUIVALENT Q2H Quantity:2 Vincent Jimenez DO Start:84-Qcg-6060Ovd:2023 Comments:Provider Administration Instructions:USE FOR K-DUR TAB ORDERSDO NOT CRUSHGIVE WITH 4-8 OUNCES OF WATER OR FRUIT JUICEMAY DISSOLVE IN 5-10ML OF WATER BEFORE GIVING Magnesium Sulfate 0.325 MEQ/ML Injectable Solution;Provider Administration Instructions:MAGNESIUM 2GM/STERILE WATER 50ML Vincent Jimenez DO Start:43-Cgc-3208Ccw:2023 Comments:Provider Administration Instructions:MAGNESIUM 2GM/STERILE WATER 50ML morphine sulfate 15 MG Oral Tablet;15 MILLIGRAM Q6H PRN Quantity:1 Vincent Jimenez DO Start:73-Xwc-3887Ufl: Status:Discontinued Comments:[id number] Administration Instructions:MORPHINE SULFATE IMMEDIATE-RELEASE (MSIR) flumazenil 0.1 MG/ML Injectable Solution;0.2 MILLIGRAM ASDIR Quantity:1 Vincent Jimenez DO Start:33-Wdv-3456Mre:2024 Status:Discontinued Comments:[id number] Administration Instructions:Give 0.2 mg IV push as needed if patient is somnolent,poorly responsive, or unresponsive and respiratory rate lessthan or equal to 8 breaths/minute. May repeat dose every 1minute up to a total of 1 mg. LORazepam 1 MG Oral Tablet;1 MILLIGRAM Q2H WA Quantity:1 Vincent Jimenez DO Start:96-Eye-1937Lao: Status:Discontinued Comments:[id number] Administration Instructions:CIWA-Ar Score 10-19:FOR PATIENTS AGE 18 TO 65MAY CAUSE DROWSINESSLORazepam = ATIVAN DO NOT EXCEED 10MG LORAZEPAM (ATIVAN) IN 24 HOURS UNLESSDIRECTED BY PHYSICIAN LOOK ALIKE/SOUND ALIKE DRUGDO NOT CONFUSE WITH ALPRAZolam!!! LORazepam 2 MG/ML Injectable Solution;2 MILLIGRAM Q2H WA Quantity:1 Vincent Jimenez DO Start:00-Fja-6776Aqm: Status:Discontinued Comments:[id number] Administration Instructions:CIWA-Ar Score 20 or greaterFOR PATIENTS AGE 18 TO 65IF IV ACCESS IS NOT AVAILABLE, GIVE IM DO NOT EXCEED 10MG LORAZEPAM (ATIVAN) IN 24 HOURS UNLESSDIRECTED BY PHYSICIAN IF USED IV: DILUTE IV DOSE WITH EQUAL VOLUME NS OR STERILE carvedilol 3.125 MG Oral Tablet [Coreg];3.125 MILLIGRAM Q12HR Quantity:1 Aman Heath MD Start:14-Sgd-5783Znf:2024 Status:Discontinued Comments:[id number] Administration Instructions:MAY BE SUBSTITUTED FOR COREG CR 10MG DAILY PER PROTOCOLAVOID WITH GRAPEFRUIT JUICE losartan potassium 50 MG Oral Tablet;50 MILLIGRAM DAILY Quantity:1 Aman Heath MD Start:85-Xde-7957Wfn:2024 Status:Discontinued Comments:[id number] predniSONE 20 MG Oral Tablet;40 MILLIGRAM DAILY Quantity:2 Aman Heath MD Start:77-Bvp-1320Cqx: Status:Discontinued Comments:[id number] Administration Instructions:TAKE WITH FOOD OR MILK insulin lispro 100 UNT/ML Injectable Solution [HumaLOG];[id number] Administration Instructions:MODERATE SLIDING SCALE INSULINHumuLOG = INSULIN LISPROLOOK ALIKE/SOUND ALIKE DRUGDO NOT CONFUSE WITH HumuLIN!!!MAY BE SUBSTITUTED FOR NovoLOG PER PROTOCOLDISPOSE OF LEFTOVER MED VIALS IN A BLACK HAZARDOUS Quantity:0 Aman Heath MD Start:99-Qux-0535Bqh:2024 Status:Discontinued Comments:[id number] Administration Instructions:MODERATE SLIDING SCALE INSULINHumuLOG = INSULIN LISPROLOOK ALIKE/SOUND ALIKE DRUGDO NOT CONFUSE WITH HumuLIN!!!MAY BE SUBSTITUTED FOR NovoLOG PER PROTOCOLDISPOSE OF LEFTOVER MED VIALS IN A BLACK HAZARDOUS acetaminophen 325 MG Oral Tablet;650 MILLIGRAM Q4H PRN Quantity:2 Aman Heath MD Start:71-Xsa-3302Nve:2024 Status:Discontinued Comments:[id number] Administration Instructions:DO NOT EXCEED 4000MG ACETAMINOPHEN PER 24 HRS sodium chloride 9 MG/ML Injectable Solution Aman Heath MD Start:43-Sji-3218Uiz:2024 Status:Discontinued 1 ML hydrALAZINE hydrochloride 20 MG/ML Injection;10 MILLIGRAM Q6H PRN Quantity:1 Aman Heath MD Start:98-Msb-4661Tgg:2024 Status:Discontinued Comments:[id number] Administration Instructions: SLOW IV PUSH OVER 3 TO 5 MINUTES HydrALAZINE = APRESOLINELOOK ALIKE/SOUND ALIKE DRUGDO NOT CONFUSE WITH HydrOXYzine!!! ondansetron 2 MG/ML Injectable Solution [Zofran];4 MILLIGRAM Q8H PRN Quantity:1 Aman Heath MD Start:49-Nla-8724Ilx:2024 Status:Discontinued Comments:[id number] Administration Instructions:PER MED STAFF APPROVAL: MAXIMUM DOSE IS 8MGMAX FREQUENCY IS Q 8 HOURSMAY BE SUBSTITUTED FOR ANZEMET 1.8 MG/KG OR 100MG IV ORKYTRIL 1.8 MCG/KG OR 1MG IV PER PROTOCOL glucose 4000 MG Chewable Tablet;16 GRAM ASDIR Quantity:4 Aman Heath MD Start:20-Idm-1517Nft:2024 Status:Discontinued Comments:[id number] Administration Instructions:GIVE IF BLOOD GLUCOSE LESS THAN 70 MG/DL ABLE TO TAKE PO. 50 ML glucose 500 MG/ML Prefilled Syringe;12.5 GRAM ASDIR Quantity:1 Aman Heath MD Start:67-Jnp-7961Lmm:2024 Status:Discontinued Comments:[id number] Administration Instructions:FOR PATIENTS WITH A BLOOD GLUCOSE LEVEL LESS THAN 70 MG/DLWHO DO NOT HAVE ORAL INTAKEGIVE OVER 5 MINUTESRECHECK IN 15 MINUTES. IF GLOOD GLUCOSE LESS THAN 70 MG/DL,NOTIFY PHYSCIAN AND GIVE REMAINING 12.5 GM (25 ML) IV OVER 5MINUTES STAT. 1 ML morphine sulfate 4 MG/ML Prefilled Syringe;4 MILLIGRAM ONCE Quantity:1 Aman Heath MD Start:11-Esf-1738Lzd:2023 Comments:[id number] 1 ML hydrALAZINE hydrochloride 20 MG/ML Injection;10 MILLIGRAM ONCE Quantity:1 Aman Heath MD Start:54-Vyp-4881Vxo:2023 Comments:[id number] Administration Instructions:HydrALAZINE = APRESOLINELOOK ALIKE/SOUND ALIKE DRUGDO NOT CONFUSE WITH HydrOXYzine!!! atorvastatin 40 MG Oral Tablet;40 MILLIGRAM PO BEDTIME Start:12-Feb-2024 Comments:40 MG PO BEDTIME losartan potassium 50 MG Oral Tablet [Cozaar];50 MILLIGRAM PO DAILY Start:12-Feb-2024 Comments:50 MG PO DAILY carvedilol 3.125 MG Oral Tablet;3.125 MILLIGRAM PO BID Start:12-Feb-2024 Comments:3.125 MG PO BID cephalexin 250 MG Oral Capsule;250 MG PO Start:12-Feb-2024 Status:Discontinued Comments:250 MG PO 1 ML morphine sulfate 4 MG/ML Prefilled Syringe;4 MILLIGRAM X1ED Quantity:1 Alverto Arzola DO Start:32-Rtq-2843Hsq:2023 Comments:[id number] 1 ML hydrALAZINE hydrochloride 20 MG/ML Injection;10 MILLIGRAM X1ED Quantity:1 Alverto Arzola DO Start:03-Sln-8131Lhi:2023 Comments:[id number] Administration Instructions:HydrALAZINE = APRESOLINELOOK ALIKE/SOUND ALIKE DRUGDO NOT CONFUSE WITH HydrOXYzine!!! 1 ML morphine sulfate 4 MG/ML Prefilled Syringe;4 MILLIGRAM X1ED Quantity:1 Alverto Arzola DO Start:01-Pfq-8973Tnc:2023 Comments:[id number] ondansetron 2 MG/ML Injectable Solution [Zofran];4 MILLIGRAM X1ED Quantity:1 Alverto Arzola DO Start:79-Syf-3021Fpc:2023 Comments:[id number] Administration Instructions: IV PUSH OVER AT LEAST 30 SECONDS sodium chloride 9 MG/ML Injectable Solution;1000 MILLILITERS X1ED Quantity:1 Alverto Arzola DO Start:24-Cpa-4993Nfr:2023 Comments:[id number] sodium chloride 9 MG/ML Injectable Solution;[id number] Bryn Verdugo MD Start:75-Wys-1172Aye:2023 Comments:[id number] insulin, regular, human 100 UNT/ML Injectable Solution;5 UNITS X1ED Quantity:1 Bryn Verdugo MD Start:77-Amu-6250Jbz:2023 Comments:[id number] Administration Instructions: DISPOSE IN BLACK CONTAINER acetaminophen 325 MG / HYDROcodone bitartrate 5 MG Oral Tablet;1 TABLET X1ED Quantity:1 Bryn Verdugo MD Start:09-Ndz-0351Zwe:2023 Comments:[id number] Administration Instructions: Do NOT exceed 4,000 mg Acetaminophen in 24 hours HYDROcodone/APAP 5/325 mg ([place] 5 mg), is the FormularySubstitute for all HYDROcodone 5 mg + APAP products (samedose frequency) sodium chloride 9 MG/ML Injectable Solution;[id number] Administration Instructions: BOLUS TO INFUSE OVER 1 HOUR Bryn Verdugo MD Start:33-Zwc-3719Siv:2023 Comments:[id number] Administration Instructions: BOLUS TO INFUSE OVER 1 HOUR potassium bicarbonate 20 MEQ Effervescent Oral Tablet [Effer-K];40 MILLIEQUIVALENT X1ED Quantity:2 Lacy Mellissa DO Start:8-Zxr-1922Bbf:21-Jan-20 Comments:[id number] 4 ML furosemide 10 MG/ML Injection;80 MILLIGRAM X1ED Quantity:2 Lacy Mellissa DO Start:6-Vwu-1141Dwl:21-Jan-20 Comments:[id number] LORazepam 2 MG/ML Injectable Solution;1 MILLIGRAM X1ED Quantity:1 Lacy Mellissa DO Start:5-Hbd-1042Fkj:21-Jan-20 Comments:[id number] Administration Instructions:IF USED IV: DILUTE IV DOSE WITH EQUAL VOLUME NS OR STERILEWATER DILUENT---Do not exceed 2mg/minuteLOOK ALIKE/SOUND ALIKE DRUGDO NOT CONFUSE WITH ALPRAZolam!!! aspirin 81 MG Chewable Tablet;324 MILLIGRAM X1ED Quantity:4 Lacy Mellissa DO Start:8-Dxd-3395Pfd:21-Jan-20 Comments:[id number] Administration Instructions:TAKE WITH FOOD OR MILK IOPAMIDOL 61% 30 ML VIAL (ISOVUE-300);Provider Administration Instructions:DISPOSE OF LEFTOVER MEDICATION VIAL IN A BLACKHAZARDOUS TOXIC IGNITABLE PHARMACEUTICAL WASTE CONTAINERDUE TO THE PRESENCE OF IODINE Quantity:1 Venkata Radford MD Start:29-Jul-2023 Status:Discontinued Comments:Provider Administration Instructions:DISPOSE OF LEFTOVER MEDICATION VIAL IN A BLACKHAZARDOUS TOXIC IGNITABLE PHARMACEUTICAL WASTE CONTAINERDUE TO THE PRESENCE OF IODINE IOPAMIDOL 61% 30 ML VIAL (ISOVUE-300);Provider Administration Instructions:DISPOSE OF LEFTOVER MEDICATION VIAL IN A BLACKHAZARDOUS TOXIC IGNITABLE PHARMACEUTICAL WASTE CONTAINERDUE TO THE PRESENCE OF IODINE Quantity:1 Venkata Radford MD Start:29-Jul-2023 Status:Discontinued Comments:Provider Administration Instructions:DISPOSE OF LEFTOVER MEDICATION VIAL IN A BLACKHAZARDOUS TOXIC IGNITABLE PHARMACEUTICAL WASTE CONTAINERDUE TO THE PRESENCE OF IODINE IOPAMIDOL 61% 30 ML VIAL (ISOVUE-300);Provider Administration Instructions:DISPOSE OF LEFTOVER MEDICATION VIAL IN A BLACKHAZARDOUS TOXIC IGNITABLE PHARMACEUTICAL WASTE CONTAINERDUE TO THE PRESENCE OF IODINE Quantity:1 Venkata Radford MD Start:29-Jul-2023 Status:Discontinued Comments:Provider Administration Instructions:DISPOSE OF LEFTOVER MEDICATION VIAL IN A BLACKHAZARDOUS TOXIC IGNITABLE PHARMACEUTICAL WASTE CONTAINERDUE TO THE PRESENCE OF IODINE metFORMIN hydrochloride 500 MG Oral Tablet;500 MILLIGRAM PO BID Start:29-Jul-2023 Comments:500 MG PO BID cephalexin 500 MG Oral Capsule;500 MILLIGRAM PO Q12H Start:29-Jul-2023 Status:Discontinued Comments:500 MG PO Q12H ondansetron 8 MG Disintegrating Oral Tablet [Zofran];8 MILLIGRAM PO Q12H PRN Start:29-Jul-2023 Comments:8 MG PO Q12H PRN As Needed for NAUSEA/VOMITING ibuprofen 800 MG Oral Tablet;800 MILLIGRAM PO TID PRN Start:20-Nov-2022 Comments:800 MG PO TID PRN As Needed for PAIN methocarbamol 500 MG Oral Tablet [Robaxin];500 MILLIGRAM PO TID PRN Start:20-Nov-2022 Comments:500 MG PO TID PRN As Needed for Muscle Pain Lidocaine Hydrochloride 0.05 MG/MG Transdermal Patch;1 PATCH TRANSDERMAL DAILY Start:20-Nov-2022 Comments:1 PATCH TRANSDERM DAILY As Needed for Pain METFORMIN HCL;500 MILLIGRAM PO BID MEALS Start:21-Feb-2016 Comments:500 MG PO BID MEALS sertraline 50 MG Oral Tablet [Zoloft];50 MILLIGRAM PO BEDTIME Start:21-Feb-2016 Comments:50 MG PO BEDTIME CULTURELLE;1 EACH PO BID Start:21-Feb-2016 Status:Discontinued Comments:1 EA PO BID clindamycin 300 MG Oral Capsule [Cleocin];600 MILLIGRAM PO TID Start:21-Feb-2016 Comments:600 MG PO TID TRAZODONE HCL;50 MILLIGRAM PO BEDTIME Start:21-Feb-2016 Comments:50 MG PO BEDTIME clindamycin 300 MG Oral Capsule [Cleocin];600 MILLIGRAM PO TID Start:21-Feb-2016 Status:Discontinued Comments:600 MG PO TID CULTURELLE;1 EACH PO BID Start:21-Feb-2016 Comments:1 EA PO BID acetaminophen 325 MG / oxyCODONE hydrochloride 10 MG Oral Tablet [Endocet];1 TABLET PO Q4H PRN Start:21-Feb-2016 Comments:1 TAB PO Q4H PRN As Needed for BREAKTHROUGH PAIN glipiZIDE 5 MG Oral Tablet;5 MILLIGRAM PO AC BK Start:20-Nov-2014 Comments:5 MG PO AC BK morphine sulfate 15 MG Extended Release Oral Tablet [MS Contin];15 MILLIGRAM PO BID Start:20-Nov-2014 Comments:15 MG PO BID hydrOXYzine pamoate 50 MG Oral Capsule [Vistaril];50 MILLIGRAM PO BEDTIME Start:20-Nov-2014 Comments:50 MG PO BEDTIME DULoxetine 30 MG Delayed Release Oral Capsule [Cymbalta];30 MILLIGRAM PO BID Start:20-Nov-2014 Comments:30 MG PO BID amLODIPine 5 MG Oral Tablet;5 MILLIGRAM PO BID Start:20-Nov-2014 Comments:5 MG PO BID COLACE 100MG CAPSULE;100 MILLIGRAM PO TID Start:20-Nov-2014 Comments:100 MG PO TID naproxen 250 MG Oral Tablet [Naprosyn];500 MILLIGRAM PO BID MEALS Start:20-Nov-2014 Comments:500 MG PO BID MEALS metFORMIN hydrochloride 500 MG Oral Tablet [Glucophage];1000 MILLIGRAM PO BID MEALS Start:20-Nov-2014 Comments:1000 MG PO BID MEALS acetaminophen 500 MG Oral Tablet;500 MILLIGRAM ORAL Q8H PRN Quantity:1 Elmira Puente MD Start:19-Nov-2014 Comments:[id number] insulin, regular, human 100 UNT/ML Injectable Solution [NovoLIN R];[id number] Administration Instructions: COVERAGE Diabetic TherapyDecreased Blood Sugar FLOOR STOCK ITEM PLEASE OBTAIN FROM REFRIGERATOR<< SEE DIABETIC FLOW SHEET >> DO NOT ADMINISTER SCHEDULE SHORT ACTINGINSULIN UNTIL FOOD IS AVAILABLE Quantity:0 Johan Dwyer MD Start:17-Nov-2014 Comments:[id number] Administration Instructions: COVERAGE Diabetic TherapyDecreased Blood Sugar FLOOR STOCK ITEM PLEASE OBTAIN FROM REFRIGERATOR<< SEE DIABETIC FLOW SHEET >> DO NOT ADMINISTER SCHEDULE SHORT ACTINGINSULIN UNTIL FOOD IS AVAILABLE DULoxetine 30 MG Delayed Release Oral Capsule [Cymbalta];30 MILLIGRAM ORAL BID_0900,2100 Quantity:1 Elmira Puente MD Start:17-Nov-2014 Comments:[id number] Administration Instructions:AntidepressantsInsomnia, Nervousness<< CYMBALTA 30 MG CAPSULE >> amLODIPine 5 MG Oral Tablet;5 MILLIGRAM ORAL BID_0900,2100 Quantity:1 Johan Dwyer MD Start:17-Nov-2014 Comments:[id number] Administration Instructions:CardiovascularDecreased Blood Pressure, Sedation sennosides, GROUP HOME 8.6 MG Oral Tablet [Senokot];2 TABLET ORAL BEDTIME_2100 Quantity:2 Elmira Punete MD Start:17-Nov-2014 Comments:[id number] Administration Instructions:LaxativesAbdominal Pain or Cramping, Diarrhea glucose 4000 MG Chewable Tablet;12 GRAM ORAL ASDIR Quantity:3 Johan Dwyer MD Start:17-Nov-2014 Comments:[id number] Administration Instructions:If renal failure patient or fluid restricted, give 3 glucosetabs STAT by mouth (PO)(for patient able to chew and swallow)- Recheck Accu-Check every 15 to 30 minutes and repeattreatment until blood glucose greater than 100 mg/dL. glucagon (rDNA) 1 MG Injection [GlucaGen];1 MILLIGRAM INTRAMUSC ASDIR Quantity:1 Johan Dwyer MD Start:17-Nov-2014 Comments:[id number] Administration Instructions:If no IV route accessible, give Glucagon 1mg intramuscular(IM)- Recheck Accu-Check every 15 to 30 minutes and repeattreatment until blood glucose greater than 100 mg/dL.- Notify physician if more than 50 ml of Dextrose 50% ormore than 1 mg Glucagon given. 50 ML glucose 500 MG/ML Prefilled Syringe;50 MILLILITER INTRAVEN. ASDIR Quantity:1 Johan Dwyer MD Start:17-Nov-2014 Comments:[id number] Administration Instructions:If BS less than 50 mg/dL, give Dextrose 50% 50 mL (one amp)IV push STAT- Recheck Accu-Check every 15 to 30 minutes and repeattreatment until blood glucose greater than 100 mg/dL.- Notify physician if more than 50 ml of Dextrose 50% ormore than 1 mg Glucagon given. 50 ML glucose 500 MG/ML Prefilled Syringe;25 MILLILITER INTRAVEN. ASDIR Quantity:1 Johan Dwyer MD Start:17-Nov-2014 Comments:[id number] Administration Instructions:If patient is nothing by mouth (NPO) and BS [id number]/dL, give Dextrose 50% 25ml (half amp) IV push.- Recheck Accu-Check every 15 to 30 minutes and repeattreatment until blood glucose greater than 100 mg/dL.- Notify physician if more than 50 ml of Dextrose 50% ormore than 1 mg Glucagon given. hydrALAZINE hydrochloride 25 MG Oral Tablet;50 MILLIGRAM ORAL Q8H PRN Quantity:2 Johan Dwyer MD Start:17-Nov-2014 Comments:[id number] Administration Instructions:<< APRESOLINE FOR BLOOD PRESSURE >>LOOK ALIKE, SOUND ALIKE docusate sodium 100 MG Oral Capsule;100 MILLIGRAM ORAL TID_0900,1300,2100 Quantity:1 Elmira Puente MD Start:17-Nov-2014 Comments:[id number] Administration Instructions:LaxativesAbdominal Pain or Cramping, DiarrheaLOOK ALIKE, SOUND ALIKE glipiZIDE 5 MG Oral Tablet [Glucotrol];5 MILLIGRAM ORAL AC BK_0730 Elmira Puente MD Start:17-Nov-2014 Comments:[id number] Administration Instructions:Rx [id number] DC'd while checking ints/dups/alls on this Rx. hydrOXYzine pamoate 50 MG Oral Capsule [Vistaril];50 MILLIGRAM ORAL BEDTIME_2100 Quantity:1 Elmira Puente MD Start:16-Nov-2014 Comments:[id number] Administration Instructions:Antispasmodic/AntianxietyD rowsiness, DizzinessLOOK ALIKE, SOUND ALIKE naproxen 250 MG Oral Tablet;500 MILLIGRAM ORAL BID MEALS_0800,1700 Quantity:2 Boy Sanchez MD Start:16-Nov-2014 Comments:[id number] Administration Instructions:Antiarthritics/Non-Narc AnalgIncreased Bruising, Stomach Upset metFORMIN hydrochloride 500 MG Oral Tablet;1000 MILLIGRAM ORAL BID MEALS_0800,1700 Quantity:2 Boy Snachez MD Start:16-Nov-2014 Comments:[id number] Administration Instructions:<< DO NOT GIVE THE DAY OF AND 24-48 HOURS AFTERIV CONTRAST ADMINISTRATION >>LOOK ALIKE, SOUND ALIKE Haloperidol 5 MG/ML Injectable Solution [Haldol];5 MILLIGRAM INTRAMUSC Q6H Quantity:1 Elmira Puente MD Start:16-Nov-2014 Comments:Provider Administration Instructions:AntipsychoticsDrowsiness, Involuntary Movements aluminum hydroxide 40 MG/ML / magnesium hydroxide 40 MG/ML Oral Suspension;30 MILLILITER ORAL Q4H PRN Quantity:1 Elmira Puente MD Start:16-Nov-2014 Comments:[id number] Administration Instructions:SHAKE WELL PRIOR TO ADMINISTRATION>> FOR EPIGASTRIC DISCOMFORT << clonazePAM 1 MG Oral Tablet [KlonoPIN];1 MILLIGRAM PO QID Start:16-Nov-2014 Status:Discontinued Comments:1 MG PO QID As Needed for ANXIETY HYDROmorphone hydrochloride 8 MG Oral Tablet;8 MILLIGRAM PO Q6H PRN Start:16-Nov-2014 Comments:8 MG PO Q6H PRN As Needed for PAIN oxyMORphone hydrochloride 10 MG Oral Tablet [Opana];10 MILLIGRAM PO BID Start:16-Nov-2014 Comments:10 MG PO BID hydrOXYzine pamoate 50 MG Oral Capsule [Vistaril];50 MILLIGRAM PO BEDTIME Start:16-Nov-2014 Status:Discontinued Comments:50 MG PO BEDTIME HYDROmorphone hydrochloride 8 MG Oral Tablet;8 MILLIGRAM PO Q6H PRN Start:14-Aug-2014 Comments:8 MG PO Q6H PRN As Needed for PAIN traZODone hydrochloride 150 MG Oral Tablet;150 MILLIGRAM ORAL BEDTIME_2100 Quantity:1 Cb Arzola MD Start:11-Dec-2013 Comments:[id number] traMADol hydrochloride 50 MG Oral Tablet;50 MILLIGRAM ORAL Q6H PRN Quantity:1 Cb Arzola MD Start:11-Dec-2013 Comments:[id number] Administration Instructions:MAX 400 MG/DAY (8 TABS)FOR PAINLOOKS ALIKE AND SOUND ALIKE traMADol hydrochloride 50 MG Oral Tablet [Ultram];50 MILLIGRAM PO Q6H PRN Start:11-Dec-2013 Status:Discontinued Comments:50 MG PO Q6H PRN As Needed for MODERATE PAIN glipiZIDE 5 MG Oral Tablet;5 MILLIGRAM PO AC BK Start:11-Dec-2013 Status:Discontinued Comments:5 MG PO AC BK ibuprofen 400 MG Oral Tablet;800 MILLIGRAM PO TID PRN Start:11-Dec-2013 Status:Discontinued Comments:800 MG PO TID PRN As Needed for BACK PAIN metFORMIN hydrochloride 500 MG Oral Tablet [Glucophage];500 MILLIGRAM PO BID MEALS Start:11-Dec-2013 Status:Discontinued Comments:500 MG PO BID MEALS citalopram 20 MG Oral Tablet;20 MILLIGRAM PO BEDTIME Start:11-Dec-2013 Status:Discontinued Comments:20 MG PO BEDTIME glipiZIDE 5 MG Oral Tablet [Glucotrol];5 MILLIGRAM ORAL AC BK Quantity:0 Johan Dwyer MD Start:10-Dec-2013 Comments:Provider Administration Instructions:Diabetic Therapy citalopram 20 MG Oral Tablet;20 MILLIGRAM ORAL BEDTIME Quantity:0 Cb Arzola MD Start:09-Dec-2013 Comments:Provider Administration Instructions:LOOK ALIKE, SOUND ALIKE metFORMIN hydrochloride 500 MG Oral Tablet;500 MILLIGRAM ORAL BID MEALS Quantity:0 Johan Dwyer MD Start:09-Dec-2013 Comments:Provider Administration Instructions:<< DO NOT GIVE THE DAY OF AND 24-48 HOURS AFTER ibuprofen 400 MG Oral Tablet;800 MILLIGRAM ORAL TID PRN Quantity:0 Cb Arzola MD Start:09-Dec-2013 Comments:Provider Administration Instructions:Antiarthritics/Non-Narc Analg 24 HR nicotine 0.875 MG/HR Transdermal System;21 MILLIGRAM TRANSDERMAL DAILY Quantity:0 Cb Arzola MD Start:08-Dec-2013 Comments:Provider Administration Instructions:to upper outer extremity daily ziprasidone 20 MG Injection [Geodon];10 MILLIGRAM INTRAMUSC Q6H PRN Quantity:0 Cb Arzola MD Start:08-Dec-2013 Comments:Provider Administration Instructions:FOR AGITATION magnesium hydroxide 80 MG/ML Oral Suspension;30 MILLILITER ORAL DAILY PRN Quantity:0 Cb Arzola MD Start:08-Dec-2013 Comments:Provider Administration Instructions:SHAKE WELL PRIOR TO ADMINSTRATION aluminum hydroxide 40 MG/ML / magnesium hydroxide 40 MG/ML Oral Suspension;30 MILLILITER ORAL Q4H PRN Quantity:0 Cb Arzola MD Start:08-Dec-2013 Comments:Provider Administration Instructions:SHAKE WELL PRIOR TO ADMINISTRATION acetaminophen 325 MG Oral Tablet;650 MILLIGRAM ORAL Q4H PRN Quantity:0 Cb Arzola MD Start:08-Dec-2013 Comments:Provider Administration Instructions:MAXIMUM DOSE IS 4 GRAMS PER DAY DULoxetine 20 MG Delayed Release Oral Capsule;20 MILLIGRAM PO BID Start:08-Dec-2013 Status:Discontinued Comments:20 MG PO BID sulfamethoxazole 800 MG / trimethoprim 160 MG Oral Tablet;1 TABLET PO BID Start:08-Dec-2013 Status:Discontinued Comments:1 TAB PO BID amLODIPine 5 MG Oral Tablet;5 MILLIGRAM PO BID Start:13-Nov-2013 Status:Discontinued Comments:5 MG PO BID cloNIDine hydrochloride 0.2 MG Oral Tablet;0.2 MILLIGRAM PO BEDTIME Start:13-Nov-2013 Status:Discontinued Comments:0.2 MG PO BEDTIME metFORMIN hydrochloride 500 MG Oral Tablet [Glucophage];1000 MILLIGRAM PO BID MEALS Start:13-Nov-2013 Status:Discontinued Comments:1000 MG PO BID MEALS [id number];2.5 MILLIGRAM PO BID Start:13-Nov-2013 Status:Discontinued Comments:2.5 MG PO BID traZODone hydrochloride 150 MG Oral Tablet;150 MILLIGRAM PO BEDTIME Start:13-Nov-2013 Status:Discontinued Comments:150 MG PO BEDTIME glipiZIDE 10 MG Oral Tablet;10 MILLIGRAM PO AC BK Start:13-Nov-2013 Status:Discontinued Comments:10 MG PO AC BK traZODone hydrochloride 150 MG Oral Tablet;150 MILLIGRAM ORAL BEDTIME Quantity:0 Cb Arzola MD Start:12-Nov-2013 metFORMIN hydrochloride 500 MG Oral Tablet;1000 MILLIGRAM ORAL BID MEALS Quantity:0 Johan Dwyer MD Start:12-Nov-2013 Comments:Provider Administration Instructions:<< DO NOT GIVE THE DAY OF AND 24-48 HOURS AFTER insulin, regular, human 100 UNT/ML Injectable Solution [NovoLIN R]; COVERAGE Provider Administration Instructions:Diabetic Therapy Quantity:1 Johan Dwyer MD Start:12-Nov-2013 Comments: COVERAGE Provider Administration Instructions:Diabetic Therapy glipiZIDE 10 MG Oral Tablet;10 MILLIGRAM ORAL AC BK Johan Dwyer MD Start:12-Nov-2013 Comments:Provider Administration Instructions:Diabetic Therapy lisinopril 5 MG Oral Tablet [Zestril];2.5 MILLIGRAM ORAL BID Quantity:0 Johan Dwyer MD Start:12-Nov-2013 Comments:Provider Administration Instructions:Cardiovascular glucagon (rDNA) 1 MG Injection [GlucaGen];1 MILLIGRAM INTRAMUSC ASDIR Quantity:0 Johan Dwyer MD Start:12-Nov-2013 50 ML glucose 500 MG/ML Prefilled Syringe;ASDIRECTED Quantity:0 Johan Dwyer MD Start:12-Nov-2013 Comments:ASDIRECTED glucose 4000 MG Chewable Tablet;16 GRAM ORAL ASDIR Quantity:0 Johan Dwyer MD Start:12-Nov-2013 cloNIDine hydrochloride 0.2 MG Oral Tablet;0.2 MILLIGRAM ORAL BEDTIME Quantity:0 Cb Arzola MD Start:11-Nov-2013 Comments:Provider Administration Instructions:Cardiovascular: Decreased Blood Pressure, Sedation amLODIPine 5 MG Oral Tablet;5 MILLIGRAM ORAL BID Quantity:0 Johan Dwyer MD Start:11-Nov-2013 Comments:Provider Administration Instructions:Cardiovascular 24 HR nicotine 0.875 MG/HR Transdermal System;21 MILLIGRAM TRANSDERMAL DAILY Quantity:0 Cb Arzola MD Start:10-Nov-2013 Comments:Provider Administration Instructions:to upper outer extremity daily acetaminophen 325 MG Oral Tablet;650 MILLIGRAM ORAL Q4H PRN Quantity:0 Cb Arzola MD Start:10-Nov-2013 Comments:Provider Administration Instructions:MAXIMUM DOSE IS 4 GRAMS PER DAY aluminum hydroxide 40 MG/ML / magnesium hydroxide 40 MG/ML Oral Suspension;30 MILLILITER ORAL Q4H PRN Quantity:0 Cb Arzola MD Start:10-Nov-2013 Comments:Provider Administration Instructions:SHAKE WELL PRIOR TO ADMINISTRATION ziprasidone 20 MG Injection [Geodon];10 MILLIGRAM INTRAMUSC Q6H PRN Quantity:0 Cb Arzola MD Start:10-Nov-2013 Comments:Provider Administration Instructions:FOR AGITATION Procedures Detoxification Services for Substance Ab use Treatment Date:09-Sep-2024 Fluoroscopy of Left Heart using Low Osmo lar Contrast Date:29-Aug-2024 Measurement of Cardiac Sampl ing and Pressure, Bilateral, Percutaneous Approach Date:29-Aug-2024 Fluoroscopy of Multiple Thais nary Arteries using Low Osmolar Contrast Date:29-Aug-2024 CHEST PORTABLEResult:[facility] [address] [place] [address] PHONE #: [phone] FAX #: [phone] PT.NAME: RAMAN BERNAL Attending Rasheed: Miguel Denise MD : 1965 Ordering Rasheed: Brendan Rogers EAge/Sex: 59/M Location: ED Unit #: [id number] Status: REG ER Admit Diagnosis: DONT FEEL WELL Radiology #: EXAM DATE: 09/11/2024 EXAMS: CPT CODE: [id number] CHEST PORTABLE 31947 EXAMINATION: CHEST PORTABLE CLINICAL INDICATION: Male, 59 years old. Chest pain, feeling unwell. COMPARISON: XR Chest 09/09/2024. FINDINGS AND IMPRESSION: The cardiomediastinal silhouette is unremarkable. Nondisplaced sternotomy wires. No evidence of focal airspace consolidation, pulmonary edema, pleural effusions, or pneumothorax. The osseous structures are unremarkable. Electronically signed by: Yoel Butler DO 09/11/2024 05:22 AM EDT RP at 0522 Reported and signed by: Yoel Butler DO CC: Miguel Denise MD; Walker Lui MD; Brendan Travis Onyedimma MDDictated Date/Time: 09/11/2024 (521)Technologist: GOOD Morris Transcribed Date/Time: 09/11/2024 (521)Windows Technical Specialist: SHANNAN Electronic Signature Date/Time: 09/11/2024 (521)Printed Date/Time: 09/11/2024 (524) BATCH NO: N/A PAGE 1 Signed Report Date:11-Sep-2024 Status:Completed CHEST PORTABLEResult:[facility] [address] [place]. [address] PHONE #: [phone] FAX #: [phone] PT.NAME: RAMAN BERNAL Attending MJohnson.: Jovanni Carrera MDDOB: 1965 Ordering MPao: Jovanni Carrera MD Age/Sex: 59/M Location: [facility] Unit #: [id number] Status: REG ER Admit Diagnosis: ETOH WITH BODY LAKSHMI Radiology #: EXAM DATE: 09/09/2024 EXAMS: CPT CODE: [id number] CHEST PORTABLE 78696 EXAMINATION: XR CHEST 1 VIEW 1 view INDICATION: Chest pain, ETOH with body pain. COMPARISON: XR Chest 09/04/2024. No acute infiltrates or consolidations. No pleural effusions or reactions. No pneumothorax. Heart and mediastinum are within normal limits. IMPRESSION: No acute cardiopulmonary disease. Electronically signed by: Dale Kendall MD 09/09/2024 02:04 PM EDT RP at 1404 Reported and signed by: DALE KENDALL MD CC: Jovanni Carrera MD; Walker Lui MD Dictated Date/Time: 09/09/2024 (1404)Technologist: DEONTE ASHTON RTR Transcribed Date/Time: 09/09/2024 (1404)Windows Technical Specialist: SHANNAN Electronic Signature Date/Time: 09/09/2024 (1404)Printed Date/Time: 09/09/2024 (2447) BATCH NO: N/A PAGE 1 Signed Report Date:09-Sep-2024 Status:Completed CHEST PORTABLEResult:[facility] [address] [place] [address] PHONE #: [phone] FAX #: [phone] PT.NAME: RAMAN BERNAL Attending M.D.: Bill Taylor MD : 1965 Ordering M.D.: Bill Taylor MD Age/Sex: 59/M Location: [facility] Unit #: [id number] Status: REG ER Admit Diagnosis: CP X FEW MONTHS, H Radiology #: EXAM DATE: 09/04/2024 EXAMS: CPT CODE: [id number] CHEST PORTABLE 67148 One view of the chest History: Cough Comparison: August 30, 2024 IMPRESSION: The lungs are clear and there is no pneumothorax or pleural effusion. The heart is mildly enlarged. Prior median sternotomy. Electronically signed by: Abdiel Mcnair MD 09/04/2024 06:32 PM EDT at 1832 Reported and signed by: ABDIEL MCNAIR MD CC: Walker Lui MD; Adriana Cramer; Bill Taylor MDDictated Date/Time: 09/04/2024 (183)Technologist: KARINA TENORIO, RT (R); MINH GAVIN RTR Transcribed Date/Time: 09/04/2024 (183)Windows Technical Specialist: SHANNAN Electronic Signature Date/Time: 09/04/2024 (183)Printed Date/Time: 09/04/2024 (183) BATCH NO: N/A PAGE 1 Signed Report Date:04-Sep-2024 Status:Completed CHEST PORTABLEResult:[facility] [address] [place] [address] PHONE #: [phone] FAX #: [phone] PT.NAME: RAMAN BERNAL Attending M.D.: Db Curiel MD : 1965 Ordering M.D.: Raman Malcolm MD R1 Age/Sex: 59/M Location: ED Unit #: [id number] Status: REG ER Admit Diagnosis: CHEST PAIN X1 DAY Radiology #: EXAM DATE: 08/30/2024 EXAMS: CPT CODE: [id number] CHEST PORTABLE 27040 EXAMINATION: XR CHEST 1 VIEW CLINICAL INDICATION: Male, 59 years old. Chest pain for 1 day. COMPARISON: XR Chest 08/25/2024. FINDINGS AND IMPRESSION: The cardiomediastinal silhouette is unremarkable. No evidence of focal airspace consolidation, pulmonary edema, pleural effusions, or pneumothorax. The osseous structures are unremarkable. Nondisplaced sternotomy wires. Electronically signed by: Yoel Butler DO 08/30/2024 03:37 AM EDT at 0337 Reported and signed by: Yoel Butler DO CC: Raman Malcolm MD; Db Curiel MD; Walker Lui MD Dictated Date/Time: 08/30/2024 (033)Technologist: KARINA PENA, RT(R) Transcribed Date/Time: 08/30/2024 (336)Windows Technical Specialist: SHANNAN Electronic Signature Date/Time: 08/30/2024 (336)Printed Date/Time: 08/30/2024 (033) BATCH NO: N/A PAGE 1 Signed Report Date:30-Aug-2024 Status:Completed - CT BRAIN W/O CONTRASTResult:[facility] [address] [place] [address] PHONE #: [phone] FAX #: [phone] PT.NAME: RAMAN BERNAL Attending Smith.: Hayden Mares MDDOB: 1965 Ordering MPao: Elena Ramos MD R2Age/Sex: 59/M Location: [address] Unit #: [id number] Status: ADM IN Admit Diagnosis: AFIB RVR Radiology #: EXAM DATE: 08/28/2024 EXAMS: CPT CODE: [id number] CT BRAIN W/O CONTRAST [address]329 EXAMINATION: CT BRAIN W/O CONTRAST CLINICAL INDICATION: Male, 59 years old. AMS; AFIB RVR TECHNIQUE: Axial CT of the head with multiplanar reformations. This exam was performed according to our departmental dose-optimization program which includes automated exposure control, adjustment of the mA and/or kV according to patient size and/or use of iterative reconstruction technique. CONTRAST: None. COMPARISON: None FINDINGS: No acute intracranial hemorrhage, extra axial fluid collection or mass effect. No CT evidence of an acute large territorial infarct. Encephalomalacia/gliosis is seen in the left parasagittal frontal/parietal region and to a lesser extent along the high parasagittal posterior right frontal lobe. Other scattered white matter hypodensities are nonspecific, but likely sequela of mild chronic microangiopathy. Mild parenchymal volume loss. Cerebellar tonsils are in normal position. Atherosclerotic calcifications are noted along the bilateral carotid siphons and intradural vertebral arteries. Severe mucosal thickening in the left greater than right maxillary sinuses with surrounding osseous sclerosis consistent with chronic sinusitis. Additionally, there is mild mucosal thickening in the ethmoid air cells. The mastoid air cells appear clear. The calvarium is intact. The orbits and soft tissues appear unremarkable. IMPRESSION: 1. No acute intracranial hemorrhage, mass effect or CT evidence of an acute territorial infarct. If there is ongoing clinical concern for acute infarction, MRI is recommended for further evaluation. 2. Encephalomalacia/gliosis in the left parasagittal frontal/parietal region and to a lesser extent along the high parasagittal posterior right frontal lobe. 3. Mild volume loss, chronic microangiopathy and atherosclerotic changes, as above. 4. Changes of advanced chronic sinusitis, as above. Interpreted by: Grupo Weiss DO I personally have reviewed the imaging as well as the resident's interpretation and agree with the above report. Electronically signed by: Keyonna Vazquez MD 08/28/2024 01:50 PM EDT RP PAGE 1 Signed Report (CONTINUED) [facility] [address] [place] [address] PHONE #: [phone] FAX #: [phone] PT.NAME: RAMAN BERNAL M.D.: Hayden Mares MDDOB: 1965 Ordering MPao: Elena Ramos MD R2Age/Sex: 59/M Location: [address] Unit #: [id number] Status: ADM IN Admit Diagnosis: AFIB RVR Radiology #: EXAM DATE: 08/28/2024 EXAMS: CPT CODE: [id number] CT BRAIN W/O CONTRAST 67224 <Continued> at 1350 Reported and signed by: KEYONNA VAZQUEZ MD CC: Walker Lui MD; Elena Ramos MD Dictated Date/Time: 08/28/2024 (1350)Technologist: KANDIS ALFARO; ... Transcribed Date/Time: 08/28/2024 (1350)Windows Technical Specialist: SAHNNAN Electronic Signature Date/Time: 08/28/2024 (1350)Printed Date/Time: 08/28/2024 (2853) BATCH NO: N/A PAGE 2 Signed Report Date:28-Aug-2024 Status:Completed CHEST PORTABLEResult:[facility] [address] [place] [address] PHONE #: [phone] FAX #: [phone] PT.NAME: RAMAN BERNAL M.D.: Isabella Mackay MD : 1965 Ordering MPao: Bill Taylor MD Age/Sex: 59/M Location: [address] Unit #: [id number] Status: ADM IN Admit Diagnosis: AFIB RVR Radiology #: EXAM DATE: 08/25/2024 EXAMS: CPT CODE: [id number] CHEST PORTABLE 80278 PROCEDURE: XR CHEST 1 VIEW CLINICAL INDICATION: CHEST PAIN; AFIB RVR. COMPARISON: None TECHNIQUE: Frontal view of the chest. FINDINGS: No lines. No consolidation, edema or effusion. No pneumothorax. The cardiac silhouette is nonenlarged. Status post CABG with sternotomy wires and sternotomy plate and screws. There are no acute osseous or soft tissue findings. IMPRESSION: No acute cardiopulmonary findings. Interpreted by: Marylin Mcclure DO I personally have reviewed the imaging as well as the resident's interpretation and agree with the above report. Electronically signed by: Mireille Martinez MD 08/26/2024 02:56 AM EDT RP at 0256 Reported and signed by: MIREILLE MARTINEZ MD CC: Bill Taylor MD Dictated Date/Time: 08/26/2024 (025)Technologist: GOOD Morris Transcribed Date/Time: 08/26/2024 (025)Windows Technical Specialist: SHANNAN Electronic Signature Date/Time: 08/26/2024 (025)Printed Date/Time: 08/26/2024 (0258) BATCH NO: N/A PAGE 1 Signed Report Date:26-Aug-2024 Status:Completed - CT ABDOMEN/PELVIS W/ CONTResult:[facility] [id number] [place] [address]. [address] PHONE #: [phone] FAX #: [phone] PT.NAME: RAMAN BERNAL Attending Rasheed: Bill Taylor MD : 1965 Ordering M.Swati.: Bill Taylor MD Age/Sex: 59/M Location: ED Unit #: [id number] Status: REG ER Admit Diagnosis: AFIB RVR Radiology #: EXAM DATE: 08/26/2024 EXAMS: CPT CODE: [id number] CT ABDOMEN/PELVIS W/ CONT 24089 EXAMINATION: CT ABDOMEN PELVIS WITH IV CONTRAST INDICATION: abd pain; AFIB RVR TECHNIQUE: Helically acquired images were obtained of the abdomen and pelvis following IV contrast. This exam was performed according to our departmental dose-optimization program which includes automated exposure control, adjustment of the mA and/or kV according to patient size and/or use of iterative reconstruction technique IV Contrast dosage and agent: 75 mL of Isovue-370 Oral contrast: None. COMPARISON: None. FINDINGS: LOWER CHEST: Please see CTA of the chest from same day for further evaluation. LIVER: Decreased attenuation of the liver. No focal mass. GALLBLADDER AND BILIARY TREE: No calcified gallstones. No gallbladder distension or wall edema. No intra- or extrahepatic biliary ductal dilation. PANCREAS: Fatty infiltration of the pancreas. SPLEEN: Normal size without focal cystic or solid mass. ADRENAL GLANDS: No nodules. KIDNEYS AND URETERS: Normal renal size and position. No hydronephrosis. PERITONEUM: No ascites or free air. No other fluid collection. BOWEL: No evidence of acute appendicitis. No stomach or bowel distension. Diverticulosis of the sigmoid colon. Nonspecific wall thickening of the right and left colon segment suspicious for inflammatory bowel disease. LYMPH NODES: No enlarged mesenteric or retroperitoneal lymph nodes. VESSELS: Aorta is nondilated. Calcified atherosclerosis is noted throughout. URINARY BLADDER: Distended urinary bladder. No wall thickening. REPRODUCTIVE ORGANS: Prostate is mildly enlarged with internal calcifications. ABDOMINAL WALL: No discrete abdominal or pelvic wall hernia. BONES: Wedge-shaped deformity at L1 with cement noted from prior vertebroplasty. Degenerative changes throughout the lumbar spine.. IMPRESSION: 1. Segments of wall thickening in the right and left colon are consistent with inflammation. 2. Hepatic steatosis. PAGE 1 Signed Report (CONTINUED) [facility] [address] [place]. [address] PHONE #: [phone] FAX #: [phone] PT.NAME: RAMAN BERNAL Attending MJohnson.: Bill Taylor MD : 1965 Ordering MJohnson.: Bill Taylor MD Age/Sex: 59/M Location: [facility] Unit #: [id number] Status: REG ER Admit Diagnosis: AFIB RVR Radiology #: EXAM DATE: 08/26/2024 EXAMS: CPT CODE: [id number] CT ABDOMEN/PELVIS W/ CONT 70906 <Continued> 3. Distended urinary bladder with enlarged prostate. Correlate with PSA level. Interpreted by: Marylin Mcclure DO I personally have reviewed the imaging as well as the resident's interpretation and agree with the above report. Electronically signed by: Mireille Martinez MD 08/26/2024 02:04 AM EDT RP at 0204 Reported and signed by: MIREILLE MARTINEZ MD CC: Bill Taylor MD Dictated Date/Time: 08/26/2024 (020)Technologist: RT KAT (R) Transcribed Date/Time: 08/26/2024 (020)Windows Technical Specialist: SHANNAN Electronic Signature Date/Time: 08/26/2024 (020)Printed Date/Time: 08/26/2024 (0207) BATCH NO: N/A PAGE 2 Signed Report Date:26-Aug-2024 Status:Completed - CT CTA CHEST W/ CONTRASTResult:[facility] [address] [place] [address] PHONE #: [phone] FAX #: [phone] PT.NAME: RAMAN BERNAL Attending M.Swati.: Bill Taylor MD : 1965 Ordering M.D.: Bill Taylor MD Age/Sex: 59/M Location: [facility] Unit #: [id number] Status: REG ER Admit Diagnosis: AFIB RVR Radiology #: EXAM DATE: 08/26/2024 EXAMS: CPT CODE: [id number] CT CTA CHEST W/ CONTRAST 74980 EXAMINATION: - CT CHEST ANGIOGRAPHY WITH IV CONTRAST INDICATION: chest pain; AFIB RVR TECHNIQUE: The examination was performed with the intravenous administration of 75 mL of Isovue-370. Post-processing of the angiographic images was performed, with multiplanar reformation and sagittal and coronal MIPS. Individualized dose optimization techniques were used for this CT. This exam was performed according to our departmental dose-optimization program which includes automated exposure control, adjustment of the mA and/or kV according to patient size and/or use of iterative reconstruction technique COMPARISON: None FINDINGS: THYROID: No thyroid lesions. HEART: Normal heart and pericardium. Moderate coronary artery calcifications noted. MEDIASTINUM AND CLARA: There is no mediastinal or hilar lymphadenopathy. BONES: Acute fracture of the lateral right seventh rib. Chronic appearing T11 compression fracture. Lumbar spine better described in CT abdomen pelvis from same day. PULMONARY ARTERIES: There is normal enhancement of the main pulmonary artery and right and left pulmonary arteries. There is normal enhancement of the bilateral peripheral pulmonary arteries. There is no demonstrated pulmonary embolism. AORTA: The aorta is nondilated. Calcified atherosclerosis noted. There is no demonstrated aortic dissection. LUNGS: There is no focal consolidation, pleural effusion, or pneumothorax. Incidentally noted Posterior lateral diaphragmatic fat-containing hernia noted on the right consistent with Bochdalek hernia. UPPER ABDOMEN: Please see CT of the abdomen and pelvis from same day. Right-sided diaphragmatic defects with fatty herniation. IMPRESSION: 1. No CTA evidence of pulmonary embolism or arterial dissection. 2. Lateral right seventh rib fracture. Interpreted by: Marylin Mcclure DO I personally have reviewed the imaging as well as the resident's interpretation and agree with the above report. Electronically signed by: Mireille Martinez MD 08/26/2024 01:57 AM EDT PAGE 1 Signed Report (CONTINUED) [facility] [address] [place] [address] PHONE #: [phone] FAX #: [phone] PT.NAME: RAMAN BERNAL Attending MJohnson.: Bill Taylor MD : 1965 Ordering MJohnson.: Bill Taylor MD Age/Sex: 59/M Location: [facility] Unit #: [id number] Status: REG ER Admit Diagnosis: AFIB RVR Radiology #: EXAM DATE: 08/26/2024 EXAMS: CPT CODE: [id number] CT CTA CHEST W/ CONTRAST 93932 <Continued> at 0157 Reported and signed by: MIREILLE MARTINEZ MD CC: Bill Taylor MD Dictated Date/Time: 08/26/2024 (015)Technologist: RT KAT (R) Transcribed Date/Time: 08/26/2024 (156)Windows Technical Specialist: SHANNAN Electronic Signature Date/Time: 08/26/2024 (156)Printed Date/Time: 08/26/2024 (015) BATCH NO: N/A PAGE 2 Signed Report Date:26-Aug-2024 Status:Completed CT HEAD/BRAIN W/O CONTResult:Patient Name: RAMAN BERNAL Unit No: [id number] EXAMS: CPT CODE: [id number] CT HEAD/BRAIN W/O CONT 90617 Reason: headache CT head without contrast 07/07/2024 CLINICAL HISTORY: headache; XMHCEELW-TTWH-DGPWR TECHNIQUE: Axial noncontrast CT images through the head were obtained. This examination was performed according to our departmental dose optimization program, which includes automated exposure control, adjustment of the mA and/or kV according to patient size, and/or use of iterative reconstruction technique. COMPARISON: None available LOCATION: W1 FINDINGS: There is no hemorrhage, extra-axial collection, mass, hydrocephalus, or midline shift. 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 There is mild microvascular ischemia. There is atherosclerotic calcification of the intracranial arterial vasculature. There is generalized parenchymal volume loss. There is extensive paranasal sinus mucosal disease. The tympanomastoid cavities are clear. The skull is intact. IMPRESSION: No acute-appearing imaging abnormality. Electronically signed by: Vinny Grant MD 07/07/2024 02:46 PM CDT at 1446 Reported and signed by: Vinny Grant MD CC: Walker Lui DO Technologist: Janet Arizmendi CT; Roseanne Call CT Trscrpt Dt/ (1446)t.[email or web address] Orig Print D/T: S: 07/07/2024 (1448) CTDI: DLP: [facility] FS[facility] NAME: RAMAN BERNAL [address] PHYS: PEPDA. [place] [address] : 1965 AGE: 59 SEX: M LOC: D.NER PHONE #: [phone] EXAM DATE: 07/07/2024 STATUS: REG ER FAX #: RAD NO: DC Dt: PAGE 1 Signed Report Date:07-Jul-2024 Status:Completed XR CHEST 1 VResult:Patient Name: RAMAN BERNAL Unit No: [id number] EXAMS: CPT CODE: [id number] XR CHEST 1 V 70678 Reason: cough Chest one view AP 07/07/2024 1:41 PM CDT CLINICAL HISTORY: Cough COMPARISON: 04/18/2024 LOCATION: W1 FINDINGS: The lungs are clear. Cardiomediastinal contours are within normal limits. The central pulmonary vasculature is not engorged. There are changes of median sternotomy. IMPRESSION: Unremarkable frontal chest radiograph. Electronically signed by: Vinny Grant MD 07/07/2024 01:41 PM CDT at 1341 Reported and signed by: Vinny Grant MD CC: Walker Lui DO Technologist: Roseanne Call CT Trscrpt Dt/ (1341)[email or web address] Orig Print D/T: S: 07/07/2024 (1343) [facility] NAME: RAMAN BERNAL [id number] PHYS: PEPDA. [place] [address] : 1965 AGE: 59 SEX: M LOC: D.NER PHONE #: [phone] EXAM DATE: 07/07/2024 STATUS: REG ER FAX #: RAD NO: DC Dt: PAGE 1 Signed Report Date:07-Jul-2024 Status:Completed XR CHEST 1 VResult:Patient Name: RAMAN BERNAL Unit No: [id number] EXAMS: CPT CODE: [id number] XR CHEST 1 V 52436 Reason: pain EXAM DESCRIPTION: XR CHEST 1 VIEW CLINICAL HISTORY: Chest pain, SOB, weakness, and dizziness. COMPARISON: XR Chest 02/11/2024 FINDINGS: Cardiac silhouette is unchanged compared with the prior exam. Patient is status post median sternotomy. There is no focal parenchymal or pleural disease. There is no acute osseous process visualized. IMPRESSION: No evidence of acute cardiopulmonary disease. Electronically signed by: Yuri Sandhu MD 04/18/2024 11:41 PM [facility] at 2341 Reported and signed by: Yuri Sanduh MD CC: Grupo Banegas DO; Walker Lui DO Technologist: Roseanne Call CT Trscrpt Dt/ (2341)C.JAR1 Orig Print D/T: S: 04/18/2024 (2343) [facility] NAME: RAMAN BERNAL [address] PHYS: BOUDA. [place] [address] : 1965 AGE: 58 SEX: M LOC: DCATE PHONE #: [phone] EXAM DATE: 04/18/2024 STATUS: PRE ER FAX #: RAD NO: DC Dt: PAGE 1 Signed Report Date:18-Apr-2024 Status:Completed - MRI MRCP WO CONResult:Patient Name: RAMAN BERNAL Unit No: [id number] EXAMS: CPT CODE: [id number] MRI MRCP [place] CON 18724 Reason: abdominal pain, bilirubin 10 EXAM: MR CHOLANGIOPANCREATOGRAPHY (MRCP) HISTORY: 58 years old Male with abdominal pain, bilirubin 10; ACUTE ALCOHOLIC HEPATITIS TECHNIQUE: Multiplanar T1-, T2-, and 3D T1-weighted imaging were performed. Heavily T2-weighted images were acquired for evaluation of the biliary tree. No administration of I.V. contrast as per protocol. The images were obtained on 1.5 Lesvia magnet Contrast: None COMPARISON: Ultrasound abdomen dated 02/12/2024, CT abdomen pelvis with contrast dated 02/10/2024 FINDINGS: Limitations: Motion artifact and poor rqyhnv-xv-qwoyw ratio limits the evaluation. Lower Chest: Not evaluated. Liver: Limited evaluation. Within normal limits. Gallbladder: Within normal limits. No evidence of gallstones. Biliary Tree: Within normal limits. No choledocholithiasis. Pancreas: Limited evaluation. Within normal limits. Spleen: Limited evaluation. Within normal limits. Adrenals: Limited evaluation. Within normal limits. Kidneys: 0.9 cm benign cyst in the right kidney is seen. Bowel: Limited evaluation. Within normal limits. Aorta and IVC: Atherosclerotic calcifications are seen in the abdominal aorta. Lymphadenopathy: No enlarged lymph nodes. Skeleton: Degenerative changes are seen in the spine. Other: No intra-abdominal free fluid. IMPRESSION: 1. No acute intra-abdominal abnormalities identified. 2. Benign right renal cyst. No imaging follow-up is needed. FOLLOW- UP RECOMMENDATIONS: Per clinical team. Electronically signed by: Bashir Cedeño MD 02/14/2024 07:44 AM DISTRICT DIRECTOR at 0744 Reported and signed by: Bashir Cedeño MD CC: Walker Lui DO; Lakeisha Kaur DO Technologist: Reno Abebe MRI Trscrpt Dt/ (0744)[email or web address] Orig Print D/T: S: 02/14/2024 (0746) [facility] NAME: RAMAN BERNAL [address] PHYS: SANCHLakeisha Silva [facility] [place] [address] : 1965 AGE: 58 SEX: M LOC: D.D256 1 PHONE #: [phone] EXAM DATE: 02/13/2024 STATUS: ADM IN FAX #: RAD NO: DC Dt: PAGE 1 Signed Report Date:14-Feb-2024 Status:Completed DUP AB/PEL/SC COMPResult:Patient Name: RAMAN BERNAL Unit No: [id number] EXAMS: CPT CODE: [id number] DUP AB/PEL/SC COMP 40041 STUDY: US ABDOMEN LIMITED, US ABDOMEN DOPPLER HISTORY: 58 years Male, hepatitis; ACUTE ALCOHOLIC HEPATITIS COMPARISON: None. TECHNIQUE: Grayscale and color Doppler ultrasound of the right upper quadrant of the abdomen was performed. FINDINGS: The pancreas and left hepatic lobe were obscured by overlying bowel gas and cannot be evaluated. The visualized abdominal aorta and IVC are normal in course and caliber. The liver is mildly enlarged with moderate steatosis, measuring 16 x 7 cm in craniocaudal dimension, without evidence of focal lesion. The portal vein is patent with normal phasic hepatopedal flow. The middle, left and right hepatic veins are patent with normal hepatofugal flow. The gallbladder is normally distended with anechoic lumen . There is normal wall thickness measuring 2.7 mm. There is no evidence of intra or extrahepatic biliary ductal dilatation. The common bile duct measures 4.5 mm in transverse diameter at the gustavo hepatis. The right kidney is normal in size and echogenicity, measuring 12.2 cm in length. No evidence of sonographic Ledesma sign or free fluid in the right upper quadrant the abdomen. IMPRESSION: No evidence of acute pathology of the right upper quadrant. Mild hepatomegaly with moderate hepatic steatosis. Patent portal and hepatic veins with normal direction of flow. Electronically signed by: Mauricio Ascencio MD 02/12/2024 11:43 AM [facility] at 1143 Reported and signed by: Mauricio Ascencio MD CC: Walker Lui DO; Lakeisha Kaur DO Technologist: US Shubham Trnerastorbd D/ (1143) Orig Print D/T: S: 02/12/2024 (1145) Probe: [facility] NAME: RAMAN BERNAL [address] PHYS: [place] [address] : 1965 AGE: 58 SEX: M LOC: D.D256 1 PHONE #: [phone] EXAM DATE: 02/12/2024 STATUS: ADM IN FAX #: RAD NO: Page 1 Signed Report Date:12-Feb-2024 Status:Completed US ABDOMEN LTDResult:Patient Name: RAMAN BERNAL Unit No: [id number] EXAMS: CPT CODE: [id number] US ABDOMEN LTD 70793 STUDY: US ABDOMEN LIMITED, US ABDOMEN DOPPLER HISTORY: 58 years Male, hepatitis; ACUTE ALCOHOLIC HEPATITIS COMPARISON: None. TECHNIQUE: Grayscale and color Doppler ultrasound of the right upper quadrant of the abdomen was performed. FINDINGS: The pancreas and left hepatic lobe were obscured by overlying bowel gas and cannot be evaluated. The visualized abdominal aorta and IVC are normal in course and caliber. The liver is mildly enlarged with moderate steatosis, measuring 16 x 7 cm in craniocaudal dimension, without evidence of focal lesion. The portal vein is patent with normal phasic hepatopedal flow. The middle, left and right hepatic veins are patent with normal hepatofugal flow. The gallbladder is normally distended with anechoic lumen . There is normal wall thickness measuring 2.7 mm. There is no evidence of intra or extrahepatic biliary ductal dilatation. The common bile duct measures 4.5 mm in transverse diameter at the gustavo hepatis. The right kidney is normal in size and echogenicity, measuring 12.2 cm in length. No evidence of sonographic Ledesma sign or free fluid in the right upper quadrant the abdomen. IMPRESSION: No evidence of acute pathology of the right upper quadrant. Mild hepatomegaly with moderate hepatic steatosis. Patent portal and hepatic veins with normal direction of flow. Electronically signed by: Mauricio Ascencio MD 02/12/2024 11:43 AM [facility] at 1143 Reported and signed by: Mauricio Ascencio MD CC: Walker Lui DO; Lakeisha Kaur DO Technologist: US Shubham Trnlioneld D/ (1143) DR.SHORO Ye Print D/T: S: 02/12/2024 (1145) Probe: [facility] NAME: RAMAN BERNAL [address] PHYS: [place] [address] : 1965 AGE: 58 SEX: M LOC: D.D256 1 PHONE #: [phone] EXAM DATE: 02/12/2024 STATUS: ADM IN FAX #: RAD NO: Page 1 Signed Report Date:12-Feb-2024 Status:Completed XR CHEST 1 VResult:Patient Name: RAMAN BERNAL Unit No: [id number] EXAMS: CPT CODE: [id number] XR CHEST 1 V 42219 Reason: cp EXAMINATION: XR CHEST 1 VIEW INDICATION: cp; BACK PAIN FOR 30 DAYS, DIARRHEA, NAUSEA Age: 58 years COMPARISON(S): 02/10/2024 TECHNIQUE: Portable AP view of the chest. FINDINGS: Support devices: None. Lungs/pleura: Prominent pericardial fat. No pneumothorax. Heart/mediastinum: Negative changes. Bones/Soft Tissues: Sternotomy changes. Surgical changes of the lumbar spine. Upper abdomen: Imaged upper abdomen is unremarkable. IMPRESSION: No acute cardiopulmonary findings. Electronically signed by: Corey Mcmahan DO 02/11/2024 08:35 PM DISTRICT DIRECTOR at 2034 Reported and signed by: COREY MCMAHAN MD CC: Walker Lui DO; Keyonna Briceño DO Technologist: Janet QUINTERO Trscrpt Dt/ (2034) Orig Print D/T: S: 02/11/2024 (2036) [facility] FS[facility] NAME: RAMAN BERNAL [address] [facility] PHYS: WEN[place] [address] : 1965 AGE: 58 SEX: M LOC: NadiaNER PHONE #: [phone] EXAM DATE: 02/11/2024 STATUS: PRE ER FAX #: RAD NO: DC Dt: PAGE 1 Signed Report Date:11-Feb-2024 Status:Completed CT ABD&PELVIS W/CONTResult:Patient Name: RAMAN BERNAL Unit No: [id number] EXAMS: CPT CODE: [id number] CT ABD PELVIS W/CONT 44331 Reason: abd LFTs bili EXAM DESCRIPTION: CT ABD PELVIS W/CONT CLINICAL HISTORY: 58 years Male, abd LFTs bili; GENERALIZED PAIN COMPARISON: CT of July 29, 2023 FINDINGS: DLP 404.3 mGy-cm Contrast-enhanced CT of the abdomen and pelvis was performed following the intravenous administration of 100 mL Isovue-300. Data was reformatted into sagittal and coronal planes. The heart is top normal in size. The lung bases appear clear. There is a right posterior diaphragmatic hernia containing mesenteric fat. CT ABDOMEN: There is fatty infiltration of the liver without focal hepatic lesion. There is gastric wall thickening, likely gastritis. There is no free air. The spleen is normal in size. The adrenal glands are within normal limits. No focal pancreatic lesion is seen. The gallbladder is unremarkable. There is renal or ureteral calculus. There is no small or large bowel obstruction. The abdominal aorta is normal in size. The celiac axis superior mesenteric artery and inferior mesenteric artery are all patent. There is mild colonic wall thickening. This could be due to unde distention or mild colitis. CT PELVIS: There is a normal appendix. There is no evidence of diverticulitis. There is a prostatic calcification. The urinary bladder is within normal limits. No fracture is seen in the lumbar spine. There has been a vertebroplasty at L1. There is a Schmorl's node in the superior endplate of L2. There is new hardware removal at T12 and L3. IMPRESSION: CT ABDOMEN: Gastric wall thickening, likely gastritis Mild colonic wall thickening, which could represent underdistention or colitis CT PELVIS: Normal appendix One or more of the following dose-optimizing techniques was utilized for this exam: automated exposure control, adjustment of the mA and/or kV according to patient size and/or use of iterative reconstruction technique. Electronically signed by: Josue Meredith MD 02/10/2024 04:01 PM [facility] at 1601 Reported and signed by: Josue Meredith MD [facility] NAME: RAMAN BERNAL [address] [facility] PHYS: [place] [address] : 1965 AGE: 58 SEX: M LOC: D.NER PHONE #: [phone] EXAM DATE: 02/10/2024 STATUS: REG ER FAX #: RAD NO: DC Dt: PAGE 1 Signed Report (CONTINUED) Patient Name: RAMAN BERNAL Unit No: [id number] EXAMS: CPT CODE: [id number] CT ABD PELVIS W/CONT 33030 <Continued> Reason: abd LFTs bili CC: Walker Lui DO; Kartik Clemente MD Technologist: Janet Silva CT; LEON Addison Trscrpt Dt/ (1601) Orig Print D/T: S: 02/10/2024 (1603) CTDI: DLP: [facility] FS[facility] NAME: RAMAN BERNAL [address] PHYS: [place] [address] : 1965 AGE: 58 SEX: M LOC: D.NER PHONE #: [phone] EXAM DATE: 02/10/2024 STATUS: REG ER FAX #: RAD NO: DC Dt: PAGE 2 Signed Report Date:10-Feb-2024 Status:Completed XR CHEST 1 VResult:Patient Name: RAMAN BERNAL Unit No: [id number] EXAMS: CPT CODE: [id number] XR CHEST 1 V 87932 Reason: altered mental status EXAMINATION: XR CHEST 1 VIEW INDICATION: altered mental status; GENERALIZED PAIN TECHNIQUE: 1 view of the chest were performed COMPARISON: 01/21/2024 chest x-ray FINDINGS: The cardiac/mediastinal contour is within normal limits. The pulmonary vasculature is within normal limits. No focal pulmonary consolidation. No large pleural effusion. No pneumothorax. IMPRESSION: No acute cardiopulmonary disease process. Electronically signed by: Omer Salmon MD 02/10/2024 01:53 PM DISTRICT DIRECTOR at 1353 Reported and signed by: Omer Salmon MD CC: Walker Lui DO; Kartik Clemente MD Technologist: LEON Addison Trscrpt Dt/ (2169)Elba Orig Print D/T: S: 02/10/2024 (0315) [facility] FS[facility] NAME: RAMAN BERNAL [address] [facility] PHYS: [place] [address] : 1965 AGE: 58 SEX: M LOC: D.NER PHONE #: [phone] EXAM DATE: 02/10/2024 STATUS: PRE ER FAX #: RAD NO: DC Dt: PAGE 1 Signed Report Date:10-Feb-2024 Status:Completed XR CHEST 1 VResult:Patient Name: RAMAN BERNAL Unit No: [id number] EXAMS: CPT CODE: [id number] XR CHEST 1 V 07716 Reason: chest pain STUDY: XR CHEST 1 VIEW INDICATION: 58 years Male, chest pain; CHEST PAIN COMPARISON: No prior imaging is available for comparison. 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 There is mild global cardiomegaly with central pulmonary vascular congestion. There is hazy density projecting over the lower half of the left lung likely reflecting a small layering pleural effusion. The lungs and right pleural spaces are otherwise clear.. The bony thorax and soft tissues are unremarkable. IMPRESSION: Findings suggestive of mild CHF exacerbation/fluid overload. Electronically signed by: Mauricio Ascencio MD 01/21/2024 04:00 PM [facility] at 1600 Reported and signed by: Mauricio Ascencio MD CC: Walker Lui DO; Mellissa Kahn DO Technologist: Roseanne Call CT Trscrpt Dt/ (1600) Orig Print D/T: S: 01/21/2024 (1602) [facility] FS[facility] NAME: RAMAN BERNAL [address] [facility] PHYS: [place] [address] : 1965 AGE: 58 SEX: M LOC: SILAS PHONE #: [phone] EXAM DATE: 01/21/2024 STATUS: REG ER FAX #: RAD NO: DC Dt: PAGE 1 Signed Report Date:21-Jan-2024 Status:Completed Social History Smoking Status Smokes tobacco daily Recorded: 11-Sep-2024 Smokes tobacco daily Recorded: 09-Sep-2024 Occasional tobacco smoker Recorded: 05-Sep-2024 Occasional tobacco smoker Recorded: 30-Aug-2024 Smokes tobacco daily Recorded: 26-Aug-2024 Smokes tobacco daily Recorded: 07-Jul-2024 Tobacco smoking consumption unknown Recorded: Occasional tobacco smoker Recorded: 12-Feb-2024 Tobacco smoking consumption unknown Recorded: Smokes tobacco daily Recorded: 21-Jan-2024 Smokes tobacco daily Recorded: 03-Aug-2023 Tobacco smoking consumption unknown Recorded: Never smoked tobacco Recorded: 31-Mar-2023 Never smoked tobacco Recorded: 20-Nov-2022 Smokes tobacco daily Recorded: 05-Aug-2016 Ex-smoker Recorded: 02-Mar-2016 Smokes tobacco daily Recorded: 14-Feb-2016 Results GLUCOSE POINT OF CARE Ordered On:12-Sep-2024 Com ments:KAVITA Notified 12-Sep-2024 07:19 GLUCOSE POINT OF NEUF107tq/dL(High) Range:70mg/dL-110mg/dL GLUCOSE POINT OF CARE Ordered On:12-Sep-2024 Com ments:KAVITA Notified 12-Sep-2024 05:38 GLUCOSE POINT OF SAVJ878oh/dL(High) Range:70mg/dL-110mg/dL COMPREHENSIVE METABOLIC PANEL Ordered On:12-Sep-2024 05:35 ALBUMIN/GLOBULIN RATIO1.5(Normal) Range:0.7-3.6 ALBUMIN3.7g/dL(Normal) Range:3.2 g/dL-4.8g/dL ALKALINE PHOSPHATASE JIFUD124M/L(Normal) Range:46U/L-116U/L SGPT/ALT40U/L(Normal) Range:10U/ L-49U/L Comments:VENIPUNCTURE SHOULD OCCUR PRIOR TO SULFASALAZINE AND/ORSULFAPYRIDINE ADMINISTRATION DUE TO THE POTENTIAL FORFALSELY DEPRESSED RESULTS. SGOT/AST41U/L(High) Range:0U/L-3 4U/L Comments:VENIPUNCTURE SHOULD OCCUR PRIOR TO SULFASALAZINE AND/ORSULFAPYRIDINE ADMINISTRATION DUE TO THE POTENTIAL FORFALSELY DEPRESSED RESULTS. BILIRUBIN TOTAL0.8mg/dL(Normal) Range:0.3mg/dL-1.2mg/dL Comments:FOR PATIENTS ON ELTROMBOPAG THERAPY, THE USE OF SIEMENS TBIMETHOD IS NOT RECOMMENDED. BUN/CREATININE RATIO6(Normal) Ra nge:4-33 BLOOD UREA ZEHPNHSM7ty/dL(Low) R daniel:9mg/dL-23mg/dL CALCIUM8.3mg/dL(Low) Range:8.7mg /dL-10.4mg/dL TVARLFCP478amwx/L(Normal) Range: 98mmol/L-107mmol/L CARBON KVUIPHX02tomi/L(Normal) R daniel:20mmol/L-31mmol/L CREATININE0.9mg/dL(Normal) Range :0.7mg/dL-1.3mg/dL ANION XTW93uyat/L(Normal) Range: 7mmol/L-16mmol/L eGFR> 90 Range:90-0 Comments:The eGFR is calculated using the 2020 CKD-EPI Cr equation,which includes serum Cr, age, and sex but does not include arace coefficient. The National Kidney Foundation recommendsthis formula for calculating eGFR in adults. GFR will notcalculate if sex is unknown or patient age is <18 years.Ref range: >/=90mL/min/1.73m2 GLOBULIN2.4g/dL(Normal) Range:1. 4g/dL-4.8g/dL JVDBGLO113sw/dL(High) Range:57mg /dL-106mg/dL POTASSIUM3.8mmol/L(Normal) Range :3.5mmol/L-5.1mmol/L EGMSJR213puhs/L(Normal) Range:13 6mmol/L-145mmol/L TOTAL PROTEIN6.1g/dL(Normal) Ran ge:5.7g/dL-8.2g/dL CORRECTED CALCIUM8.5mg/dL(Normal) Range:8.5mg/dL-10.1mg/dL Comments:Calcium corrected for Albumin. PHOSPHORUS Ordered On:12-Sep-2024 05:35 PHOSPHORUS3.2mg/dL(Normal) Ran ge:2.4mg/dL-5.1mg/dL MAGNESIUM Ordered On:12-Sep-2024 05:35 MAGNESIUM1.5mg/dL(Low) Range:1 .6mg/dL-2.6mg/dL CBC Ordered On:12-Sep-2024 05:11 NPVZEQBMKW75.2%(Low) Range:40. 1%-51% IOUTKYTZVS44.0g/dL(Low) Range:13 .7g/dL-17.5g/dL MEAN CELL HGB32.6pg(High) Range: 25.7pg-32.2pg MEAN CELL HGB BZFJCHRIHRQGL71.0g/dL(Normal) Range:32.3g/dL-36.5g/dL MEAN CELL GEQNYC29.7fL(High) Ran ge:79fL-92.2fL PLATELET MHDJP99309*3/uL(Normal) Range:55231*3/uL-12193*3/uL RED BLOOD CELL3.9910*6/uL(Low) R daniel:4.6310*6/uL-6.0810*6/uL RED CELL DISTRIBUTIO N WIDTH14.9%(High) Range:11.6%-14.4% WHITE BLOOD CELL5.410*3/uL(Normal) Range:410*3/uL-10.510*3/uL GLUCOSE POINT OF CARE Ordered On:11-Sep-2024 Com ments:RN Notified 11-Sep-2024 20:17 GLUCOSE POINT OF FDMC016tc/dL(High) Range:70mg/dL-110mg/dL C-REACTIVE PROTEIN Ordered On:11-Sep-2024 19:12 C REACTIVE PROTEIN< 0.5mg/dL(Normal) Range:0mg/dL-0.5mg/dL SEDIMENTATION RATE Ordered On:11-Sep-2024 19:21 SEDIMENTATION WDXB5rv/h(Normal) Range:0mm/h-20mm/h GLUCOSE POINT OF CARE Ordered On:11-Sep-2024 Com ments:RN NotifiedCleaned Meter 11-Sep-2024 15:34 GLUCOSE POINT OF XCYL610wf/dL(High) Range:70mg/dL-110mg/dL GLUCOSE POINT OF CARE Ordered On:11-Sep-2024 Com ments:RN NotifiedCleaned Meter 11-Sep-2024 12:18 GLUCOSE POINT OF FAUQ520iw/dL(High) Range:70mg/dL-110mg/dL TROPI HIGH SENSITIVITY Ordered On:11-Sep-2024 07:01 TROPI HIGH LYCUFXKPRFK39sq/L(Normal) Range:0-54ng/L ALCOHOL (ETHANOL) BLOOD Ordered On:11-Sep-2024 07:01 ALCOHOL (ETHANOL) SSWDB188kf/dL Comments:EXPECTED VALUES: UP TO 10 mg/dL MAY BE OBSERVED DUE TO PRESENCE OF VOLATILE REDUCING SUBSTANCES AND DOES NOT NECESSARILY INDICATE INGESTION OF ETHANOL.RANGE: < 10 mg/dL IS INCONCLUSIVE > 10 mg/dL INDICATES ETHANOL INGESTIONTOXIC: > 150 mg/dL UR DRUG SCREEN Ordered On:11-Sep-2024 06:26 UR AMPHETAMINENEGATIVE Range:N EGATIVE Comments:QUALITATIVE PROCEDURE ONLYCUTOFF CONCENTRATIOM - GREATER THAN OR EQUAL TO 1000 ng/mLBASED ON [facility] RECOMMENDATIONS FOR SCREENING DRUGS IN HU[place]URINE. RESULTS TO BE USED FOR MEDICAL PURPOSES ONLY. UR BARBITURATESNEGATIVE Range:NE GATIVE Comments:QUALITATIVE PROCEDURE ONLYCUTOFF CONCENTRATION - GREATER THAN OR EQUAL TO 200 ng/mLBASED ON [facility] RECOMMENDATIONS FOR SCREENING DRUGS IN HUMANURINE. RESULTS TO BE USED FOR MEDICAL PURPOSES ONLY. UR BENZOPIAZEPINESNEGATIVE Range :NEGATIVE Comments:QUALITATIVE PROCEDURE ONLYCUTOFF CONCENTRATION - GREATER THAN OR EQUAL TO 200 ng/mLBASED ON [facility] RECOMMENDATIONS FOR SCREENING DRUGS IN HUMANURINE. RESULTS TO BE USED FOR MEDICAL PURPOSES ONLY. UR COCAINENEGATIVE Range:NEGATIV E UR FENTANYL QUALNEGATIVE Range:N EGATIVE Comments:CUTOFF CONCENTRATION - GREATER THAN OR EQUAL TO 1 ng/mLBASED ON [facility] RECOMMENDATIONS FOR SCREENING DRUGS IN HUMANURINE. RESULTS TO BE USED FOR MEDICAL PURPOSES ONLY. UR METHADONE QUALNEGATIVE Range: NEGATIVE Comments:QUALITATIVE PROCEDURE ONLYCUTOFF CONCENTRATION - GREATER THAN OR EQUAL TO 300 ng/mLBASED ON [facility] RECOMMENDATIONS FOR SCREENING DRUGS IN HUMANURINE. RESULTS TO BE USED FOR MEDICAL PURPOSES ONLY. UR OPIATESNEGATIVE Range:NEGATIV E Comments:QUALITATIVE PROCEDURE ONLYCUTOFF CONCENTRATION - GREATER THAN OR EQUAL TO 300 ng/mLBASED ON [facility] RECOMMENDATIONS FOR SCREENING DRUGS IN HUMANURINE. RESULTS TO BE USED FOR MEDICAL PURPOSES ONLY. UR TRICYCLIC ANTIDEPRESSANTSNEGATIVE Range:NEGATIVE Comments:This is a screen for only the drugs listed above. A negativetest for a specific drug class indicates that the drug classis absent or may be present in a concentration below thedesignated cutoff level for the drug class. Unconfirmednegative Urine Drug of Abuse screen results are supportedfor medical purposes only. Clinical consideration andprofessional judgement should be applied to any drug ofabuse test result. More comprehensive confirmatory testingis available upon request.Results equal to or greater than the followingconcentrations are considered POSITIVE (PRESUMPTIVEPOSITIVE):DRUG CLASS CUT OFF LEVELAmphetamines 1000 ng/mLBarbiturates 200 ng/mLBenzodiazepines 200 ng/mLCocaine 300 ng/mLCannabinoids (THC) 50 ng/mLOpiates 300 ng/mLFentanyl 1.0 ng/mLTricyclics 1000 ng/mLMethadone 300 ng/mL UR CANNABINOID (THC)NEGATIVE Ran ge:NEGATIVE Comments:QUALITATIVE PROCEDURE ONLYCUTOFF CONCENTRATION - GREATER THAN OR EQUAL TO 50 ng/mLBASED ON [facility] RECOMMENDATIONS FOR SCREENING DRUGS IN HUMANURINE. RESULTS TO BE USED FOR MEDICAL PURPOSES ONLY. B TYPE NATRIURETIC PEPTIDE Ordered On:11-Sep-2024 05:47 B TYPE NATRIURETIC BLWSKWH388.5pg/mL(High) Range:0pg/mL-100pg/mL Comments:BNP is a neurohormone secreted mainly in the cardiacventricles in response to volume expansion and pressureoverload. Because conditions other than heart failure canresult in an elevated BNP level, the clinical context of apatient with a positive BNP must be considered.Dialysis patients will have elevated BNP levels reflectingincreased ventricular filling pressure. Increased BNP levelscan also be observed in AMI severe enough to elevateventricular pressure.While a negative BNP value makes the diagnosis of heartfailure unlikely, it does not exclude the diagnosis of otherpotentially serious medical conditions such as unstableangina, AMI, asthma, COPD, or pulmonary embolism. CBC WITH DIFFERENTIAL Ordered On:11-Sep-2024 05:33 PLATELET MDRIG09132*3/uL(Normal) Range:36678*3/uL-89904*3/uL RED CELL DISTRIBUTIO N WIDTH14.9%(High) Range:11.6%-14.4% MONOCYTE %11.9%(Normal) Range:5. 3%-12.2% MEAN PLATELET TLYQRT76.0fL(Normal) Range:9.4fL-12.4fL NEUTROPHIL #2.4510*3/uL(Normal) Range:1.7810*3/uL-5.3810*3/uL LYMPHOCYTE %35.8%(Normal) Range: 21.8%-53.1% EOSINOPHIL %2.6%(Normal) Range:0 .8%-7% MONOCYTE #0.6010*3/uL(Normal) Ra nge:0.310*3/uL-0.8210*3/uL NUCLEATED RED BLOOD CELL %0.0%(Normal) Range:0%-0.2% QWBNIOGSHE09.8%(Low) Range:40.1% -51% MEAN CELL VDRERT86.5fL(High) Ran ge:79fL-92.2fL RED BLOOD CELL4.0210*6/uL(Low) R daniel:4.6310*6/uL-6.0810*6/uL BASOPHIL #0.0510*3/uL(Normal) Ra nge:0.0110*3/uL-0.0810*3/uL EOSINOPHIL #0.1310*3/uL(Normal) Range:0.0410*3/uL-0.5410*3/uL MEAN CELL HGB GVNWUMPJXJTVJ54.0g/dL(Normal) Range:32.3g/dL-36.5g/dL LYMPHOCYTE #1.8110*3/uL(Normal) Range:1.3210*3/uL-3.5710*3/uL WFHNELBFRA42.2g/dL(Low) Range:13 .7g/dL-17.5g/dL BASOPHIL %1.0%(Normal) Range:0.2 %-1.2% WHITE BLOOD CELL5.110*3/uL(Normal) Range:410*3/uL-10.510*3/uL NUCLEATED RED BLOOD CELL #0.0010*3/uL(Normal) Range:010*3/uL-0.1810*3/uL IMMATURE GRANULOCYTE S %0.2%(Normal) Range:0%-0.4% MEAN CELL HGB32.8pg(High) Range: 25.7pg-32.2pg IMMATURE GRANULOCYTE S #0.0110*3/uL(Normal) Range:010*3/uL-0.0310*3/uL NEUTROPHIL %48.5%(Normal) Range: 34%-67.9% COMPREHENSIVE METABOLIC PANEL Ordered On:11-Sep-2024 09:44 ALBUMIN/GLOBULIN RATIO1.6(Normal) Range:0.7-3.6 ALBUMIN4.1g/dL(Normal) Range:3.2 g/dL-4.8g/dL ALKALINE PHOSPHATASE EQNDI017O/L(High) Range:46U/L-116U/L SGPT/ALT52U/L(High) Range:10U/L- 49U/L Comments:VENIPUNCTURE SHOULD OCCUR PRIOR TO SULFASALAZINE AND/ORSULFAPYRIDINE ADMINISTRATION DUE TO THE POTENTIAL FORFALSELY DEPRESSED RESULTS. SGOT/AST49U/L(High) Range:0U/L-3 4U/L Comments:VENIPUNCTURE SHOULD OCCUR PRIOR TO SULFASALAZINE AND/ORSULFAPYRIDINE ADMINISTRATION DUE TO THE POTENTIAL FORFALSELY DEPRESSED RESULTS. BILIRUBIN TOTAL0.4mg/dL(Normal) Range:0.3mg/dL-1.2mg/dL Comments:FOR PATIENTS ON ELTROMBOPAG THERAPY, THE USE OF SIEMENS TBIMETHOD IS NOT RECOMMENDED. BUN/CREATININE RATIO6(Normal) Ra nge:4-33 BLOOD UREA CZRZZFBX4kk/dL(Low) R daniel:9mg/dL-23mg/dL CALCIUM8.4mg/dL(Low) Range:8.7mg /dL-10.4mg/dL KBBUGUQG922jhta/L(High) Range:98 mmol/L-107mmol/L [place] NMRVPCJ76vkxq/L(Normal) R daniel:20mmol/L-31mmol/L CREATININE1.1mg/dL(Normal) Range :0.7mg/dL-1.3mg/dL ANION MWV03yhtx/L(Normal) Range: 7mmol/L-16mmol/L eGFR76.9(Low) Range:90-0 Comments:The eGFR is calculated using the 2020 CKD-EPI Cr equation,which includes serum Cr, age, and sex but does not include arace coefficient. The National Kidney Foundation recommendsthis formula for calculating eGFR in adults. GFR will notcalculate if sex is unknown or patient age is <18 years.Ref range: >/=90mL/min/1.73m2 GLOBULIN2.5g/dL(Normal) Range:1. 4g/dL-4.8g/dL MXGSLKM021du/dL(High) Range:57mg /dL-106mg/dL POTASSIUM3.3mmol/L(Low) Range:3. 5mmol/L-5.1mmol/L KWANPH468qayl/L(Normal) Range:13 6mmol/L-145mmol/L TOTAL PROTEIN6.6g/dL(Normal) Ran ge:5.7g/dL-8.2g/dL CORRECTED CALCIUM8.3mg/dL(Low) R daniel:8.5mg/dL-10.1mg/dL Comments:Calcium corrected for Albumin. TROPI HIGH SENSITIVITY Ordered On:11-Sep-2024 09:44 TROPI HIGH EWCAKEGFNPE36dz/L(Normal) Range:0-54ng/L ALCOHOL (ETHANOL) BLOOD Ordered On:11-Sep-2024 05:45 ALCOHOL (ETHANOL) EGAGZ090no/dL Comments:EXPECTED VALUES: UP TO 10 mg/dL MAY BE OBSERVED DUE TO PRESENCE OF VOLATILE REDUCING SUBSTANCES AND DOES NOT NECESSARILY INDICATE INGESTION OF ETHANOL.RANGE: < 10 mg/dL IS INCONCLUSIVE > 10 mg/dL INDICATES ETHANOL INGESTIONTOXIC: > 150 mg/dL ACETAMINOPHEN (TYLENOL) Ordered On:11-Sep-2024 05:45 ACETAMINOPHEN (TYLEN OL)< 2.0ug/mL(Low) Range:10ug/mL-30ug/mL Comments:PEDIATRIC - TOXIC = >150 ug/mL - 4 HOURS POST INGESTION OR >50 ug/mL - 12 HOURS POST INGESTIONADULT - TOXIC = >200 ug/mL - 4 HOURS POST INGESTION OR >50 ug/mL - 12 HOURS POST INGESTION SALICYLATE (ASPIRIN) Ordered On:11-Sep-2024 05:45 SALICYLATE (ASPIRIN) < 3.0mg/dL(Normal) Range:0mg/dL-20mg/dL Comments:THERAPEUTIC LEVEL = 0 - 22 mg/dLTOXIC SALICYLATE = GREATER THAN 30 mg/dL PHOSPHORUS Ordered On:11-Sep-2024 09:44 PHOSPHORUS1.8mg/dL(Low) Range: 2.4mg/dL-5.1mg/dL MAGNESIUM Ordered On:11-Sep-2024 09:44 MAGNESIUM1.8mg/dL(Normal) Rang e:1.6mg/dL-2.6mg/dL GLUCOSE POINT OF CARE Ordered On:11-Sep-2024 Com ments:RN Notified 11-Sep-2024 04:45 GLUCOSE POINT OF FWMH952pj/dL(High) Range:70mg/dL-110mg/dL GLUCOSE POINT OF CARE Ordered On:10-Sep-2024 Com ments:RN Notified 10-Sep-2024 11:29 GLUCOSE POINT OF QZHT213dp/dL(High) Range:70mg/dL-110mg/dL GLUCOSE POINT OF CARE Ordered On:10-Sep-2024 Com ments:RN Notified 10-Sep-2024 06:04 GLUCOSE POINT OF LVXB207pn/dL(High) Range:70mg/dL-110mg/dL CBC WITH DIFFERENTIAL Ordered On:10-Sep-2024 04:20 BASOPHIL #0.0610*3/uL(Normal) Range:0.0110*3/uL-0.0810*3/uL BASOPHIL %1.2%(Normal) Range:0.2 %-1.2% EOSINOPHIL #0.2010*3/uL(Normal) Range:0.0410*3/uL-0.5410*3/uL EOSINOPHIL %4.1%(Normal) Range:0 .8%-7% HGBQXPQUNU69.3%(Low) Range:40.1% -51% VSSZRHNFUS60.5g/dL(Low) Range:13 .7g/dL-17.5g/dL IMMATURE GRANULOCYTE S #0.0110*3/uL(Normal) Range:010*3/uL-0.0310*3/uL IMMATURE GRANULOCYTE S %0.2%(Normal) Range:0%-0.4% LYMPHOCYTE #1.9910*3/uL(Normal) Range:1.3210*3/uL-3.5710*3/uL LYMPHOCYTE %41.3%(Normal) Range: 21.8%-53.1% MEAN CELL HGB32.5pg(High) Range: 25.7pg-32.2pg MEAN CELL HGB PMFEUTCFXUGZE82.5g/dL(Normal) Range:32.3g/dL-36.5g/dL MEAN CELL OOQJQC30.9fL(High) Ran ge:79fL-92.2fL MONOCYTE #0.4710*3/uL(Normal) Ra nge:0.310*3/uL-0.8210*3/uL MONOCYTE %9.8%(Normal) Range:5.3 %-12.2% MEAN PLATELET VOLUME9.8fL(Normal) Range:9.4fL-12.4fL NEUTROPHIL #2.0910*3/uL(Normal) Range:1.7810*3/uL-5.3810*3/uL NEUTROPHIL %43.4%(Normal) Range: 34%-67.9% NUCLEATED RED BLOOD CELL #0.0010*3/uL(Normal) Range:010*3/uL-0.1810*3/uL NUCLEATED RED BLOOD CELL %0.0%(Normal) Range:0%-0.2% PLATELET EJZIK78537*3/uL(Normal) Range:18608*3/uL-27765*3/uL RED BLOOD CELL3.5410*6/uL(Low) R daniel:4.6310*6/uL-6.0810*6/uL RED CELL DISTRIBUTIO N WIDTH15.1%(High) Range:11.6%-14.4% WHITE BLOOD CELL4.810*3/uL(Normal) Range:410*3/uL-10.510*3/uL COMPREHENSIVE METABOLIC PANEL Ordered On:10-Sep-2024 04:36 ALBUMIN/GLOBULIN RATIO1.5(Normal) Range:0.7-3.6 ALBUMIN3.2g/dL(Normal) Range:3.2 g/dL-4.8g/dL ALKALINE PHOSPHATASE NIRMB930M/L(Normal) Range:46U/L-116U/L SGPT/ALT50U/L(High) Range:10U/L- 49U/L Comments:VENIPUNCTURE SHOULD OCCUR PRIOR TO SULFASALAZINE AND/ORSULFAPYRIDINE ADMINISTRATION DUE TO THE POTENTIAL FORFALSELY DEPRESSED RESULTS. SGOT/AST52U/L(High) Range:0U/L-3 4U/L Comments:VENIPUNCTURE SHOULD OCCUR PRIOR TO SULFASALAZINE AND/ORSULFAPYRIDINE ADMINISTRATION DUE TO THE POTENTIAL FORFALSELY DEPRESSED RESULTS. BILIRUBIN TOTAL0.3mg/dL(Normal) Range:0.3mg/dL-1.2mg/dL Comments:FOR PATIENTS ON ELTROMBOPAG THERAPY, THE USE OF SIEMENS TBIMETHOD IS NOT RECOMMENDED. BUN/CREATININE RATIO10(Normal) R daniel:4-33 BLOOD UREA KSRQEPYC4ee/dL(Low) R daniel:9mg/dL-23mg/dL CALCIUM7.7mg/dL(Low) Range:8.7mg /dL-10.4mg/dL VWWHEWIR416jouh/L(High) Range:98 mmol/L-107mmol/L [place] KWVPJEC38hdyf/L(Normal) R daniel:20mmol/L-31mmol/L CREATININE0.8mg/dL(Normal) Range :0.7mg/dL-1.3mg/dL ANION HRS37sgta/L(Normal) Range: 7mmol/L-16mmol/L eGFR> 90 Range:90-0 Comments:The eGFR is calculated using the 2020 CKD-EPI Cr equation,which includes serum Cr, age, and sex but does not include arace coefficient. The National Kidney Foundation recommendsthis formula for calculating eGFR in adults. GFR will notcalculate if sex is unknown or patient age is <18 years.Ref range: >/=90mL/min/1.73m2 GLOBULIN2.1g/dL(Normal) Range:1. 4g/dL-4.8g/dL NAMAKVH846ou/dL(High) Range:57mg /dL-106mg/dL POTASSIUM3.5mmol/L(Normal) Range :3.5mmol/L-5.1mmol/L FAXWTA474qhsi/L(Normal) Range:13 6mmol/L-145mmol/L TOTAL PROTEIN5.3g/dL(Low) Range: 5.7g/dL-8.2g/dL CORRECTED CALCIUM8.3mg/dL(Low) R daniel:8.5mg/dL-10.1mg/dL Comments:Calcium corrected for Albumin. PHOSPHORUS Ordered On:10-Sep-2024 04:36 PHOSPHORUS2.5mg/dL(Normal) Ran ge:2.4mg/dL-5.1mg/dL MAGNESIUM Ordered On:10-Sep-2024 04:36 MAGNESIUM1.8mg/dL(Normal) Rang e:1.6mg/dL-2.6mg/dL TROPI HIGH SENSITIVITY Ordered On:09-Sep-2024 20:23 TROPI HIGH FWSQZIVREPS28jx/L(Normal) Range:0-54ng/L GLUCOSE POINT OF CARE Ordered On:09-Sep-2024 Com ments:RN Notified 09-Sep-2024 19:32 GLUCOSE POINT OF URHK494ly/dL(High) Range:70mg/dL-110mg/dL INFLUENZA A B AG SCREEN Ordered On:09-Sep-2024 16:26 INFLUENZA A AGNEGATIVE Range:N EGATIVE INFLUENZA B AGNEGATIVE Range:NEG ATIVE CBC WITH DIFFERENTIAL Ordered On:09-Sep-2024 16:05 BASOPHIL #0.0410*3/uL(Normal) Range:0.0110*3/uL-0.0810*3/uL BASOPHIL %0.7%(Normal) Range:0.2 %-1.2% EOSINOPHIL #0.1610*3/uL(Normal) Range:0.0410*3/uL-0.5410*3/uL EOSINOPHIL %2.8%(Normal) Range:0 .8%-7% FMMXNRCJNW15.7%(Low) Range:40.1% -51% FYKHTUPBAY17.4g/dL(Low) Range:13 .7g/dL-17.5g/dL IMMATURE GRANULOCYTE S #0.0210*3/uL(Normal) Range:010*3/uL-0.0310*3/uL IMMATURE GRANULOCYTE S %0.3%(Normal) Range:0%-0.4% LYMPHOCYTE #2.3210*3/uL(Normal) Range:1.3210*3/uL-3.5710*3/uL LYMPHOCYTE %39.9%(Normal) Range: 21.8%-53.1% MEAN CELL HGB32.5pg(High) Range: 25.7pg-32.2pg MEAN CELL HGB EOQBVUYIQLQHL79.8g/dL(Normal) Range:32.3g/dL-36.5g/dL MEAN CELL TKIGEK48.1fL(High) Ran ge:79fL-92.2fL MONOCYTE #0.3410*3/uL(Normal) Ra nge:0.310*3/uL-0.8210*3/uL MONOCYTE %5.9%(Normal) Range:5.3 %-12.2% MEAN PLATELET VOLUME9.4fL(Normal) Range:9.4fL-12.4fL NEUTROPHIL #2.9310*3/uL(Normal) Range:1.7810*3/uL-5.3810*3/uL NEUTROPHIL %50.4%(Normal) Range: 34%-67.9% NUCLEATED RED BLOOD CELL #0.0010*3/uL(Normal) Range:010*3/uL-0.1810*3/uL NUCLEATED RED BLOOD CELL %0.0%(Normal) Range:0%-0.2% PLATELET QVGSG91084*3/uL(Normal) Range:77420*3/uL-51999*3/uL RED BLOOD CELL3.8210*6/uL(Low) R daniel:4.6310*6/uL-6.0810*6/uL RED CELL DISTRIBUTIO N WIDTH14.9%(High) Range:11.6%-14.4% WHITE BLOOD CELL5.810*3/uL(Normal) Range:410*3/uL-10.510*3/uL Novel Coronavirus 2019 InHouse Ordered On:09-Sep-2024 16:20 Novel Coronavirus 20 19 InHouseNegative Range:Negative Comments:Negative results should be treated as presumptive and, ifinconsistent with clinical signs and symptoms or necessaryfor patient management, should be tested with differentauthorized or cleared molecular tests. Negative results donot preclude SARS-CoV-2 infection and should not be used asthe sole basis for patient management decisions. Negativeresults should be considered in the context of a patient'srecent exposures, history, and the presence of clinicalsigns and symptoms consistent with COVID-19.The ID NOW COVID-19 has been authorized by the FDA under anemergency use authorization for use by authorizedlaboratories and patient care settings. The test has beenauthorized only for the detection of nucleic acid rbntCZCQ-TlH-8.Assay Methodology:Isothermal nucleic acid amplification technology COMPREHENSIVE METABOLIC PANEL Ordered On:09-Sep-2024 17:18 ALBUMIN/GLOBULIN RATIO1.6(Normal) Range:0.7-3.6 ALBUMIN3.7g/dL(Normal) Range:3.2 g/dL-4.8g/dL ALKALINE PHOSPHATASE KQOSW471K/L(High) Range:46U/L-116U/L SGPT/ALT59U/L(High) Range:10U/L- 49U/L Comments:VENIPUNCTURE SHOULD OCCUR PRIOR TO SULFASALAZINE AND/ORSULFAPYRIDINE ADMINISTRATION DUE TO THE POTENTIAL FORFALSELY DEPRESSED RESULTS. SGOT/AST64U/L(High) Range:0U/L-3 4U/L Comments:VENIPUNCTURE SHOULD OCCUR PRIOR TO SULFASALAZINE AND/ORSULFAPYRIDINE ADMINISTRATION DUE TO THE POTENTIAL FORFALSELY DEPRESSED RESULTS. BILIRUBIN TOTAL0.2mg/dL(Low) Ran ge:0.3mg/dL-1.2mg/dL Comments:FOR PATIENTS ON ELTROMBOPAG THERAPY, THE USE OF SIEMENS TBIMETHOD IS NOT RECOMMENDED. BUN/CREATININE RATIO6(Normal) Ra nge:4-33 BLOOD UREA PXLDQIGA7rh/dL(Low) R daniel:9mg/dL-23mg/dL CALCIUM7.8mg/dL(Low) Range:8.7mg /dL-10.4mg/dL RERKEWGL624hlfo/L(High) Range:98 mmol/L-107mmol/L [place] SUEWZUV73nhzu/L(Normal) R daniel:20mmol/L-31mmol/L CREATININE0.9mg/dL(Normal) Range :0.7mg/dL-1.3mg/dL ANION JNB37vrwy/L(Normal) Range: 7mmol/L-16mmol/L eGFR> 90 Range:90-0 Comments:The eGFR is calculated using the 2020 CKD-EPI Cr equation,which includes serum Cr, age, and sex but does not include arace coefficient. The National Kidney Foundation recommendsthis formula for calculating eGFR in adults. GFR will notcalculate if sex is unknown or patient age is <18 years.Ref range: >/=90mL/min/1.73m2 GLOBULIN2.3g/dL(Normal) Range:1. 4g/dL-4.8g/dL MXYXLZA995sm/dL(High) Range:57mg /dL-106mg/dL POTASSIUM3.8mmol/L(Normal) Range :3.5mmol/L-5.1mmol/L HDBGHA660vwrg/L(Normal) Range:13 6mmol/L-145mmol/L TOTAL PROTEIN6.0g/dL(Normal) Ran ge:5.7g/dL-8.2g/dL CORRECTED CALCIUM8.0mg/dL(Low) R daniel:8.5mg/dL-10.1mg/dL Comments:Calcium corrected for Albumin. LIPASE Ordered On:09-Sep-2024 17:18 FQJTKT90G/L(Normal) Range:12U/ L-53U/L TROPI HIGH SENSITIVITY Ordered On:09-Sep-2024 17:18 TROPI HIGH JJJBKIXZZXX46xw/L(Normal) Range:0-54ng/L ALCOHOL (ETHANOL) BLOOD Ordered On:09-Sep-2024 17:18 ALCOHOL (ETHANOL) XFHOI539kf/dL(Critical High) Comments:RESULTS CALLED TO AND READ BACK BY CARMEN SAEED/YEVGENIY 09/09/24 AT 1718 BY: [id number] VALUES: UP TO 10 mg/dL MAY BE OBSERVED DUE TO PRESENCE OF VOLATILE REDUCING SUBSTANCES AND DOES NOT NECESSARILY INDICATE INGESTION OF ETHANOL.RANGE: < 10 mg/dL IS INCONCLUSIVE > 10 mg/dL INDICATES ETHANOL INGESTIONTOXIC: > 150 mg/dL FLU FOR TANIKA Ordered On:09-Sep-2024 16:44 FLU FOR SOFIAFLU FOR TANIKA B TYPE NATRIURETIC PEPTIDE Ordered On:09-Sep-2024 18:11 B TYPE NATRIURETIC RHLFBLW90.8pg/mL(Normal) Range:0pg/mL-100pg/mL Comments:BNP is a neurohormone secreted mainly in the cardiacventricles in response to volume expansion and pressureoverload. Because conditions other than heart failure canresult in an elevated BNP level, the clinical context of apatient with a positive BNP must be considered.Dialysis patients will have elevated BNP levels reflectingincreased ventricular filling pressure. Increased BNP levelscan also be observed in AMI severe enough to elevateventricular pressure.While a negative BNP value makes the diagnosis of heartfailure unlikely, it does not exclude the diagnosis of otherpotentially serious medical conditions such as unstableangina, AMI, asthma, COPD, or pulmonary embolism. GLUCOSE POINT OF CARE Ordered On:05-Sep-2024 Com ments:RN Notified 05-Sep-2024 11:07 GLUCOSE POINT OF UNHX068wm/dL(High) Range:70mg/dL-110mg/dL GLUCOSE POINT OF CARE Ordered On:05-Sep-2024 Com ments:RN Notified 05-Sep-2024 05:53 GLUCOSE POINT OF IGJH99on/dL(Normal) Range:70mg/dL-110mg/dL WBC REFLEX Ordered On:05-Sep-2024 03:51 WBC REFLEXABNORMAL CBC WITH DIFFERENTIAL Ordered On:05-Sep-2024 03:51 BASOPHIL #0.0410*3/uL(Normal) Range:0.0110*3/uL-0.0810*3/uL BASOPHIL %1.0%(Normal) Range:0.2 %-1.2% EOSINOPHIL #0.1410*3/uL(Normal) Range:0.0410*3/uL-0.5410*3/uL EOSINOPHIL %3.6%(Normal) Range:0 .8%-7% ACDPIVRMGD59.7%(Low) Range:40.1% -51% SDBOMFWWOE42.6g/dL(Low) Range:13 .7g/dL-17.5g/dL IMMATURE GRANULOCYTE S #0.0110*3/uL(Normal) Range:010*3/uL-0.0310*3/uL IMMATURE GRANULOCYTE S %0.3%(Normal) Range:0%-0.4% LYMPHOCYTE #1.6210*3/uL(Normal) Range:1.3210*3/uL-3.5710*3/uL LYMPHOCYTE %41.2%(Normal) Range: 21.8%-53.1% MEAN CELL HGB32.6pg(High) Range: 25.7pg-32.2pg MEAN CELL HGB QDZCITLDVMLKH40.3g/dL(Normal) Range:32.3g/dL-36.5g/dL MEAN CELL EFXWCC46.8fL(High) Ran ge:79fL-92.2fL MONOCYTE #0.5510*3/uL(Normal) Ra nge:0.310*3/uL-0.8210*3/uL MONOCYTE %14.0%(High) Range:5.3% -12.2% MEAN PLATELET VOLUME9.8fL(Normal) Range:9.4fL-12.4fL NEUTROPHIL #1.5710*3/uL(Low) Ran ge:1.7810*3/uL-5.3810*3/uL NEUTROPHIL %39.9%(Normal) Range: 34%-67.9% NUCLEATED RED BLOOD CELL #0.0010*3/uL(Normal) Range:010*3/uL-0.1810*3/uL NUCLEATED RED BLOOD CELL %0.0%(Normal) Range:0%-0.2% PLATELET WQCVC06554*3/uL(Normal) Range:76135*3/uL-30360*3/uL RED BLOOD CELL3.8710*6/uL(Low) R daniel:4.6310*6/uL-6.0810*6/uL RED CELL DISTRIBUTIO N WIDTH15.5%(High) Range:11.6%-14.4% WHITE BLOOD CELL3.910*3/uL(Low) Range:410*3/uL-10.510*3/uL COMPREHENSIVE METABOLIC PANEL Ordered On:05-Sep-2024 04:10 ALBUMIN/GLOBULIN RATIO1.6(Normal) Range:0.7-3.6 ALBUMIN3.6g/dL(Normal) Range:3.2 g/dL-4.8g/dL ALKALINE PHOSPHATASE SMSBF425L/L(High) Range:46U/L-116U/L SGPT/ALT51U/L(High) Range:10U/L- 49U/L Comments:VENIPUNCTURE SHOULD OCCUR PRIOR TO SULFASALAZINE AND/ORSULFAPYRIDINE ADMINISTRATION DUE TO THE POTENTIAL FORFALSELY DEPRESSED RESULTS. SGOT/AST49U/L(High) Range:0U/L-3 4U/L Comments:VENIPUNCTURE SHOULD OCCUR PRIOR TO SULFASALAZINE AND/ORSULFAPYRIDINE ADMINISTRATION DUE TO THE POTENTIAL FORFALSELY DEPRESSED RESULTS. BILIRUBIN TOTAL0.4mg/dL(Normal) Range:0.3mg/dL-1.2mg/dL Comments:FOR PATIENTS ON ELTROMBOPAG THERAPY, THE USE OF SIEMENS TBIMETHOD IS NOT RECOMMENDED. BUN/CREATININE RATIO12(Normal) R daniel:4-33 BLOOD UREA IIDVVKLG28rl/dL(Normal) Range:9mg/dL-23mg/dL CALCIUM9.0mg/dL(Normal) Range:8. 7mg/dL-10.4mg/dL LABTAQYG198cgmq/L(Normal) Range: 98mmol/L-107mmol/L CARBON GCOELTW93juah/L(Normal) R daniel:20mmol/L-31mmol/L CREATININE0.8mg/dL(Normal) Range :0.7mg/dL-1.3mg/dL ANION UQL4czmh/L(Normal) Range:7 mmol/L-16mmol/L eGFR> 90 Range:90-0 Comments:The eGFR is calculated using the 2020 CKD-EPI Cr equation,which includes serum Cr, age, and sex but does not include arace coefficient. The [employer] Kid[employer] Foundation recommendsthis formula for calculating eGFR in adults. GFR will notcalculate if sex is unknown or patient age is <18 years.Ref range: >/=90mL/min/1.73m2 GLOBULIN2.2g/dL(Normal) Range:1. 4g/dL-4.8g/dL AQWGRFX33ae/dL(Normal) Range:57m g/dL-106mg/dL POTASSIUM3.9mmol/L(Normal) Range :3.5mmol/L-5.1mmol/L TOBNZZ813typp/L(Normal) Range:13 6mmol/L-145mmol/L TOTAL PROTEIN5.8g/dL(Normal) Ran ge:5.7g/dL-8.2g/dL CORRECTED CALCIUM9.3mg/dL(Normal) Range:8.5mg/dL-10.1mg/dL Comments:Calcium corrected for Albumin. PHOSPHORUS Ordered On:05-Sep-2024 04:10 PHOSPHORUS2.5mg/dL(Normal) Ran ge:2.4mg/dL-5.1mg/dL MAGNESIUM Ordered On:05-Sep-2024 04:10 MAGNESIUM1.6mg/dL(Normal) Rang e:1.6mg/dL-2.6mg/dL GLUCOSE POINT OF CARE Ordered On:05-Sep-2024 Com ments:RN Notified 05-Sep-2024 01:17 GLUCOSE POINT OF HMYI398xe/dL(High) Range:70mg/dL-110mg/dL TROPI HIGH SENSITIVITY Ordered On:04-Sep-2024 22:53 TROPI HIGH TVOMFPOZOJX11oi/L(Normal) Range:0-54ng/L ALCOHOL (ETHANOL) BLOOD Ordered On:04-Sep-2024 23:16 ALCOHOL (ETHANOL) MXDVO343gf/dL Comments:EXPECTED VALUES: UP TO 10 mg/dL MAY BE OBSERVED DUE TO PRESENCE OF VOLATILE REDUCING SUBSTANCES AND DOES NOT NECESSARILY INDICATE INGESTION OF ETHANOL.RANGE: < 10 mg/dL IS INCONCLUSIVE > 10 mg/dL INDICATES ETHANOL INGESTIONTOXIC: > 150 mg/dL GLUCOSE POINT OF CARE Ordered On:04-Sep-2024 Com ments:RN NotifiedCleaned Meter 04-Sep-2024 22:36 GLUCOSE POINT OF RRPI665ad/dL(High) Range:70mg/dL-110mg/dL URINALYSIS W/REFLEX CULTURE Ordered On:04-Sep-2024 Comments:Indication for cult ure: RiskForSepsis-no oth src 04-Sep-2024 20:46 UA APPEARANCEClear Range:CLEAR UA BILIRUBIN DIPSTICKNegativemg/dL Range:NEGATIVE mg/dL UA BLOOD DIPSTICKNegativemg/dL R daniel:NEGATIVE mg/dL UA COLORColorless Range:YELLOW UA GLUCOSE DIPSTICK> 1000 (4+)mg/dL(Abnormal) Range:NEGATIVE mg/dL UA KETONE DIPSTICKNegativemg/dL Range:NEGATIVE mg/dL UA LEUKOCYTE ESTERAS E DIPSTICKNegative{MAIRA/uL} Range:NEGATIVE Maira/uL UA NITRITE DIPSTICKNegativemg/dL Range:NEGATIVE mg/dL UA PH DIPSTICK6.5(Normal) Range: 4.5-7.5 UA PROTEIN DIPSTICKNegativemg/dL Range:NEGATIVE mg/dL UA SPECIFIC GRAVITY< 1.005(Low) Range:1.005-1.03 UA UROBILINOGEN DIPSTICKNormalmg/dL Range:Normal mg/dL UR DRUG SCREEN Ordered On:04-Sep-2024 23:40 UR AMPHETAMINENEGATIVE Range:N EGATIVE Comments:QUALITATIVE PROCEDURE ONLYCUTOFF CONCENTRATIOM - GREATER THAN OR EQUAL TO 1000 ng/mLBASED ON [facility] RECOMMENDATIONS FOR SCREENING DRUGS IN HUMAURINE. RESULTS TO BE USED FOR MEDICAL PURPOSES ONLY. UR BARBITURATESNEGATIVE Range:NE GATIVE Comments:QUALITATIVE PROCEDURE ONLYCUTOFF CONCENTRATION - GREATER THAN OR EQUAL TO 200 ng/mLBASED ON [facility] RECOMMENDATIONS FOR SCREENING DRUGS IN HUMANURINE. RESULTS TO BE USED FOR MEDICAL PURPOSES ONLY. UR BENZOPIAZEPINESNEGATIVE Range :NEGATIVE Comments:QUALITATIVE PROCEDURE ONLYCUTOFF CONCENTRATION - GREATER THAN OR EQUAL TO 200 ng/mLBASED ON [facility] RECOMMENDATIONS FOR SCREENING DRUGS IN HUMANURINE. RESULTS TO BE USED FOR MEDICAL PURPOSES ONLY. UR COCAINENEGATIVE Range:NEGATIV E UR FENTANYL QUALNEGATIVE Range:N EGATIVE Comments:CUTOFF CONCENTRATION - GREATER THAN OR EQUAL TO 1 ng/mLBASED ON [facility] RECOMMENDATIONS FOR SCREENING DRUGS IN HUMANURINE. RESULTS TO BE USED FOR MEDICAL PURPOSES ONLY. UR METHADONE QUALNEGATIVE Range: NEGATIVE Comments:QUALITATIVE PROCEDURE ONLYCUTOFF CONCENTRATION - GREATER THAN OR EQUAL TO 300 ng/mLBASED ON [facility] RECOMMENDATIONS FOR SCREENING DRUGS IN HUMANURINE. RESULTS TO BE USED FOR MEDICAL PURPOSES ONLY. UR OPIATESNEGATIVE Range:NEGATIV E Comments:QUALITATIVE PROCEDURE ONLYCUTOFF CONCENTRATION - GREATER THAN OR EQUAL TO 300 ng/mLBASED ON [facility] RECOMMENDATIONS FOR SCREENING DRUGS IN HUMANURINE. RESULTS TO BE USED FOR MEDICAL PURPOSES ONLY. UR TRICYCLIC ANTIDEPRESSANTSNEGATIVE Range:NEGATIVE Comments:This is a screen for only the drugs listed above. A negativetest for a specific drug class indicates that the drug classis absent or may be present in a concentration below thedesignated cutoff level for the drug class. Unconfirmednegative Urine Drug of Abuse screen results are supportedfor medical purposes only. Clinical consideration andprofessional judgement should be applied to any drug ofabuse test result. More comprehensive confirmatory testingis available upon request.Results equal to or greater than the followingconcentrations are considered POSITIVE (PRESUMPTIVEPOSITIVE):DRUG CLASS CUT OFF LEVELAmphetamines 1000 ng/mLBarbiturates 200 ng/mLBenzodiazepines 200 ng/mLCocaine 300 ng/mLCannabinoids (THC) 50 ng/mLOpiates 300 ng/mLFentanyl 1.0 ng/mLTricyclics 1000 ng/mLMethadone 300 ng/mL UR CANNABINOID (THC)NEGATIVE Ran ge:NEGATIVE Comments:QUALITATIVE PROCEDURE ONLYCUTOFF CONCENTRATION - GREATER THAN OR EQUAL TO 50 ng/mLBASED ON [facility] RECOMMENDATIONS FOR SCREENING DRUGS IN HUMANURINE. RESULTS TO BE USED FOR MEDICAL PURPOSES ONLY. GLUCOSE POINT OF CARE Ordered On:04-Sep-2024 Com ments:RN Notified 05-Sep-2024 04:41 GLUCOSE POINT OF OYNH054vf/dL(High) Range:70mg/dL-110mg/dL CBC WITH DIFFERENTIAL Ordered On:04-Sep-2024 17:02 BASOPHIL #0.0510*3/uL(Normal) Range:0.0110*3/uL-0.0810*3/uL BASOPHIL %1.0%(Normal) Range:0.2 %-1.2% EOSINOPHIL #0.1310*3/uL(Normal) Range:0.0410*3/uL-0.5410*3/uL EOSINOPHIL %2.6%(Normal) Range:0 .8%-7% MZBUEHHKPA01.9%(Low) Range:40.1% -51% KYZJNEBHDM92.2g/dL(Low) Range:13 .7g/dL-17.5g/dL IMMATURE GRANULOCYTE S #0.0210*3/uL(Normal) Range:010*3/uL-0.0310*3/uL IMMATURE GRANULOCYTE S %0.4%(Normal) Range:0%-0.4% LYMPHOCYTE #2.1410*3/uL(Normal) Range:1.3210*3/uL-3.5710*3/uL LYMPHOCYTE %43.0%(Normal) Range: 21.8%-53.1% MEAN CELL HGB32.2pg(Normal) Rang e:25.7pg-32.2pg MEAN CELL HGB HWATQLEKMOHTZ59.0g/dL(Normal) Range:32.3g/dL-36.5g/dL MEAN CELL DULHBR85.7fL(High) Ran ge:79fL-92.2fL MONOCYTE #0.7110*3/uL(Normal) Ra nge:0.310*3/uL-0.8210*3/uL MONOCYTE %14.3%(High) Range:5.3% -12.2% MEAN PLATELET XTHWZC61.1fL(Normal) Range:9.4fL-12.4fL NEUTROPHIL #1.9310*3/uL(Normal) Range:1.7810*3/uL-5.3810*3/uL NEUTROPHIL %38.7%(Normal) Range: 34%-67.9% NUCLEATED RED BLOOD CELL #0.0010*3/uL(Normal) Range:010*3/uL-0.1810*3/uL NUCLEATED RED BLOOD CELL %0.0%(Normal) Range:0%-0.2% PLATELET KYGDO79047*3/uL(Normal) Range:33011*3/uL-56162*3/uL RED BLOOD CELL3.7910*6/uL(Low) R daniel:4.6310*6/uL-6.0810*6/uL RED CELL DISTRIBUTIO N WIDTH15.4%(High) Range:11.6%-14.4% WHITE BLOOD CELL5.010*3/uL(Normal) Range:410*3/uL-10.510*3/uL COMPREHENSIVE METABOLIC PANEL Ordered On:04-Sep-2024 17:22 ALBUMIN/GLOBULIN RATIO1.7(Normal) Range:0.7-3.6 ALBUMIN3.8g/dL(Normal) Range:3.2 g/dL-4.8g/dL ALKALINE PHOSPHATASE WXBGE549P/L(High) Range:46U/L-116U/L SGPT/ALT57U/L(High) Range:10U/L- 49U/L Comments:VENIPUNCTURE SHOULD OCCUR PRIOR TO SULFASALAZINE AND/ORSULFAPYRIDINE ADMINISTRATION DUE TO THE POTENTIAL FORFALSELY DEPRESSED RESULTS. SGOT/AST48U/L(High) Range:0U/L-3 4U/L Comments:VENIPUNCTURE SHOULD OCCUR PRIOR TO SULFASALAZINE AND/ORSULFAPYRIDINE ADMINISTRATION DUE TO THE POTENTIAL FORFALSELY DEPRESSED RESULTS. BILIRUBIN TOTAL0.3mg/dL(Normal) Range:0.3mg/dL-1.2mg/dL Comments:FOR PATIENTS ON ELTROMBOPAG THERAPY, THE USE OF SIEMENS TBIMETHOD IS NOT RECOMMENDED. BUN/CREATININE RATIO8(Normal) Ra nge:4-33 BLOOD UREA RCJCEQDU3dd/dL(Normal) Range:9mg/dL-23mg/dL CALCIUM9.2mg/dL(Normal) Range:8. 7mg/dL-10.4mg/dL VXPTAOVT036wiic/L(Normal) Range: 98mmol/L-107mmol/L CARBON AHMXIDS15xxzg/L(Normal) R daniel:20mmol/L-31mmol/L CREATININE1.1mg/dL(Normal) Range :0.7mg/dL-1.3mg/dL ANION XQU7graw/L(Normal) Range:7 mmol/L-16mmol/L eGFR76.9(Low) Range:90-0 Comments:The eGFR is calculated using the 2020 CKD-EPI Cr equation,which includes serum Cr, age, and sex but does not include arace coefficient. The National Kidney Foundation recommendsthis formula for calculating eGFR in adults. GFR will notcalculate if sex is unknown or patient age is <18 years.Ref range: >/=90mL/min/1.73m2 GLOBULIN2.2g/dL(Normal) Range:1. 4g/dL-4.8g/dL MHMZAOY649dr/dL(Critical High) R daniel:57mg/dL-106mg/dL Comments:RESULTS CALLED TO AND READ BACK BY STEFANY MOREJON/DIAMOND 09/04/24 AT 1720 BY: DANILO POTASSIUM3.3mmol/L(Low) Range:3. 5mmol/L-5.1mmol/L LBYANG237ptzp/L(Low) Range:136mm ol/L-145mmol/L TOTAL PROTEIN6.0g/dL(Normal) Ran ge:5.7g/dL-8.2g/dL CORRECTED CALCIUM9.4mg/dL(Normal) Range:8.5mg/dL-10.1mg/dL Comments:Calcium corrected for Albumin. TROPI HIGH SENSITIVITY Ordered On:04-Sep-2024 17:22 TROPI HIGH NOUGXDEFNDA24hl/L(Normal) Range:0-54ng/L ACETONE QUAL Ordered On:04-Sep-2024 17:22 ACETONE QUALNEGATIVE Range:NEG ATIVE B TYPE NATRIURETIC PEPTIDE Ordered On:04-Sep-2024 17:21 B TYPE NATRIURETIC TGHOGXP62.6pg/mL(Normal) Range:0pg/mL-100pg/mL Comments:BNP is a neurohormone secreted mainly in the cardiacventricles in response to volume expansion and pressureoverload. Because conditions other than heart failure canresult in an elevated BNP level, the clinical context of apatient with a positive BNP must be considered.Dialysis patients will have elevated BNP levels reflectingincreased ventricular filling pressure. Increased BNP levelscan also be observed in AMI severe enough to elevateventricular pressure.While a negative BNP value makes the diagnosis of heartfailure unlikely, it does not exclude the diagnosis of otherpotentially serious medical conditions such as unstableangina, AMI, asthma, COPD, or pulmonary embolism. GLYCOSYLATED HEMOGLOBIN (A1C) Ordered On:04-Sep-2024 22:50 GLYCOSYLATED HEMOGLO BIN (A1C)9.6%(High) Range:0-5.7% Comments:The [place] [employer] recommends that a primarygoal of therapy should be a HbA1c of < 7% and thatphysicians should re-evaluate the treatment regimen inpatients with HbA1c values consistently > 8%. This methodhas met National Glycohemoglobin Standardization Program(NGSP) certification requirements. TROPI HIGH SENSITIVITY Ordered On:30-Aug-2024 03:40 TROPI HIGH UDXRTXDXGJQ00dk/L(Normal) Range:0-54ng/L CBC WITH DIFFERENTIAL Ordered On:30-Aug-2024 02:35 BASOPHIL #0.0210*3/uL(Normal) Range:0.0110*3/uL-0.0810*3/uL BASOPHIL %0.5%(Normal) Range:0.2 %-1.2% EOSINOPHIL #0.0810*3/uL(Normal) Range:0.0410*3/uL-0.5410*3/uL EOSINOPHIL %1.8%(Normal) Range:0 .8%-7% MPJWRZOQGN33.6%(Low) Range:40.1% -51% VTTZVAPNQV75.0g/dL(Low) Range:13 .7g/dL-17.5g/dL IMMATURE GRANULOCYTE S #0.0310*3/uL(Normal) Range:010*3/uL-0.0310*3/uL IMMATURE GRANULOCYTE S %0.7%(High) Range:0%-0.4% LYMPHOCYTE #1.2010*3/uL(Low) Ran ge:1.3210*3/uL-3.5710*3/uL LYMPHOCYTE %27.7%(Normal) Range: 21.8%-53.1% MEAN CELL HGB32.3pg(High) Range: 25.7pg-32.2pg MEAN CELL HGB QFZUTCPCRTNQU20.7g/dL(Normal) Range:32.3g/dL-36.5g/dL MEAN CELL YAVPNG69.7fL(High) Ran ge:79fL-92.2fL MONOCYTE #0.4810*3/uL(Normal) Ra nge:0.310*3/uL-0.8210*3/uL MONOCYTE %11.1%(Normal) Range:5. 3%-12.2% MEAN PLATELET CZORUP74.0fL(Normal) Range:9.4fL-12.4fL NEUTROPHIL #2.5210*3/uL(Normal) Range:1.7810*3/uL-5.3810*3/uL NEUTROPHIL %58.2%(Normal) Range: 34%-67.9% NUCLEATED RED BLOOD CELL #0.0010*3/uL(Normal) Range:010*3/uL-0.1810*3/uL NUCLEATED RED BLOOD CELL %0.0%(Normal) Range:0%-0.2% PLATELET ZUPQH95640*3/uL(Low) Ra nge:89586*3/uL-72520*3/uL RED BLOOD CELL3.7210*6/uL(Low) R daniel:4.6310*6/uL-6.0810*6/uL RED CELL DISTRIBUTIO N WIDTH14.3%(Normal) Range:11.6%-14.4% WHITE BLOOD CELL4.310*3/uL(Normal) Range:410*3/uL-10.510*3/uL COMPREHENSIVE METABOLIC PANEL Ordered On:30-Aug-2024 02:50 ALBUMIN/GLOBULIN RATIO1.6(Normal) Range:0.7-3.6 ALBUMIN3.5g/dL(Normal) Range:3.2 g/dL-4.8g/dL ALKALINE PHOSPHATASE JSZWI999S/L(High) Range:46U/L-116U/L SGPT/ALT93U/L(High) Range:10U/L- 49U/L Comments:VENIPUNCTURE SHOULD OCCUR PRIOR TO SULFASALAZINE AND/ORSULFAPYRIDINE ADMINISTRATION DUE TO THE POTENTIAL FORFALSELY DEPRESSED RESULTS. SGOT/DAJ760K/L(High) Range:0U/L- 34U/L Comments:VENIPUNCTURE SHOULD OCCUR PRIOR TO SULFASALAZINE AND/ORSULFAPYRIDINE ADMINISTRATION DUE TO THE POTENTIAL FORFALSELY DEPRESSED RESULTS. BILIRUBIN TOTAL0.5mg/dL(Normal) Range:0.3mg/dL-1.2mg/dL Comments:FOR PATIENTS ON ELTROMBOPAG THERAPY, THE USE OF SIEMENS TBIMETHOD IS NOT RECOMMENDED. BUN/CREATININE RATIO10(Normal) R daniel:4-33 BLOOD UREA WMJGZMAZ10nr/dL(Normal) Range:9mg/dL-23mg/dL CALCIUM8.1mg/dL(Low) Range:8.7mg /dL-10.4mg/dL GUYUUQRS700xjyc/L(High) Range:98 mmol/L-107mmol/L [place] UEIALLU18ggde/L(Normal) R daniel:20mmol/L-31mmol/L CREATININE1.1mg/dL(Normal) Range :0.7mg/dL-1.3mg/dL ANION ZED6xalo/L(Normal) Range:7 mmol/L-16mmol/L eGFR76.9(Low) Range:90-0 Comments:The eGFR is calculated using the 2020 CKD-EPI Cr equation,which includes serum Cr, age, and sex but does not include arace coefficient. The National Kidney Foundation recommendsthis formula for calculating eGFR in adults. GFR will notcalculate if sex is unknown or patient age is <18 years.Ref range: >/=90mL/min/1.73m2 GLOBULIN2.2g/dL(Normal) Range:1. 4g/dL-4.8g/dL VSMJSBF893wa/dL(High) Range:57mg /dL-106mg/dL POTASSIUM3.3mmol/L(Low) Range:3. 5mmol/L-5.1mmol/L IURBLP225zyia/L(Normal) Range:13 6mmol/L-145mmol/L TOTAL PROTEIN5.7g/dL(Normal) Ran ge:5.7g/dL-8.2g/dL CORRECTED CALCIUM8.5mg/dL(Normal) Range:8.5mg/dL-10.1mg/dL Comments:Calcium corrected for Albumin. MAGNESIUM Ordered On:30-Aug-2024 02:50 MAGNESIUM1.7mg/dL(Normal) Rang e:1.6mg/dL-2.6mg/dL TROPI HIGH SENSITIVITY Ordered On:30-Aug-2024 02:50 TROPI HIGH MDFOIPXJARL14rd/L(Normal) Range:0-54ng/L GLUCOSE POINT OF CARE Ordered On:29-Aug-2024 Com ments:Cleaned Meter 29-Aug-2024 12:40 GLUCOSE POINT OF KDLB722dt/dL(High) Range:70mg/dL-110mg/dL POC COOX PROFILE Ordered On:29-Aug-2024 21:04 POC CO-OX O2 HZJUTCMYCO82.7% Comments: 02 Saturation Reference ranges:Superior Vena Cava: 55%-65%Inferior Vena Cava: 65%-75%Right Atrium: 60%-70%Right Ventricle: 60%-70%Pulmonary Artery: 60%-70%Left Atrium: 93%-98%Left Ventricle: 93%-98%Systemic Artery: 93%-98% POC TOTAL APBIAHNJMW22.1g/dL(Low) Range:13g/dL-18g/dL POC COOX PROFILE Ordered On:29-Aug-2024 21:04 POC CO-OX O2 WENWEXINKV96.4% Comments: 02 Saturation Reference ranges:Superior Vena Cava: 55%-65%Inferior Vena Cava: 65%-75%Right Atrium: 60%-70%Right Ventricle: 60%-70%Pulmonary Artery: 60%-70%Left Atrium: 93%-98%Left Ventricle: 93%-98%Systemic Artery: 93%-98% POC TOTAL TWAVIUSHJH88.0g/dL(Low) Range:13g/dL-18g/dL GLUCOSE POINT OF CARE Ordered On:29-Aug-2024 Com ments:KAVITA NotifiedCleaned Meter 29-Aug-2024 08:54 GLUCOSE POINT OF BWZP778nn/dL(High) Range:70mg/dL-110mg/dL GLUCOSE POINT OF CARE Ordered On:29-Aug-2024 Com ments:KAVITA NotifiedCleaned Meter 29-Aug-2024 05:56 GLUCOSE POINT OF UUXL856hf/dL(High) Range:70mg/dL-110mg/dL PROTHROMBIN TIME PROFILE Ordered On:29-Aug-2024 Comments:Is patient on IV He jacey or Argatroban therapy? No 29-Aug-2024 06:08 INTERNATIONAL NORMAL RATIO1.1(Normal) Range:0.8-1.1 Comments:Use INR for clinical decision makingRecommended Therapeutic Range:INDICATION TARGETED INR RANGEProphylaxis in high risk surgery 2.0-2.5Treatment of DVT or Pulmonary Embolism 2.0-3.0Prophylaxis Systemic Embolism inCardiac Disease 2.0-3.0Mechanical Prosthetic Heart ValveRecurrent Systemic Embolism 2.5-3.5 PROTHROMBIN TIME12.1s(Normal) Ra nge:10s-12.8s Comments:New methodology, please review new reference ranges. PTT PROFILE Ordered On:29-Aug-2024 Comments: Is patient on IV Heparin or Argatroban therapy? No 29-Aug-2024 06:08 PTT31s(Normal) Range:25s-38s Comments:Therapeutic heparin range is 58-92 seconds. COMPREHENSIVE METABOLIC PANEL Ordered On:29-Aug-2024 06:22 ALBUMIN/GLOBULIN RATIO1.5(Normal) Range:0.7-3.6 ALBUMIN3.3g/dL(Normal) Range:3.2 g/dL-4.8g/dL ALKALINE PHOSPHATASE KUJTY982V/L(High) Range:46U/L-116U/L SGPT/ALT45U/L(Normal) Range:10U/ L-49U/L Comments:VENIPUNCTURE SHOULD OCCUR PRIOR TO SULFASALAZINE AND/ORSULFAPYRIDINE ADMINISTRATION DUE TO THE POTENTIAL FORFALSELY DEPRESSED RESULTS. SGOT/AST73U/L(High) Range:0U/L-3 4U/L Comments:VENIPUNCTURE SHOULD OCCUR PRIOR TO SULFASALAZINE AND/ORSULFAPYRIDINE ADMINISTRATION DUE TO THE POTENTIAL FORFALSELY DEPRESSED RESULTS. BILIRUBIN TOTAL1.1mg/dL(Normal) Range:0.3mg/dL-1.2mg/dL Comments:FOR PATIENTS ON ELTROMBOPAG THERAPY, THE USE OF SIEMENS TBIMETHOD IS NOT RECOMMENDED. BUN/CREATININE RATIO18(Normal) R daniel:4-33 BLOOD UREA IKHYNIVH73zs/dL(Normal) Range:9mg/dL-23mg/dL CALCIUM8.1mg/dL(Low) Range:8.7mg /dL-10.4mg/dL CBBQHHFD972oaac/L(High) Range:98 mmol/L-107mmol/L [place] DBCGEUZ47wyre/L(Normal) R daniel:20mmol/L-31mmol/L CREATININE0.8mg/dL(Normal) Range :0.7mg/dL-1.3mg/dL ANION OOC1ooto/L(Normal) Range:7 mmol/L-16mmol/L eGFR> 90 Range:90-0 Comments:The eGFR is calculated using the 2020 CKD-EPI Cr equation,which includes serum Cr, age, and sex but does not include arace coefficient. The National Kidney Foundation recommendsthis formula for calculating eGFR in adults. GFR will notcalculate if sex is unknown or patient age is <18 years.Ref range: >/=90mL/min/1.73m2 GLOBULIN2.2g/dL(Normal) Range:1. 4g/dL-4.8g/dL SNZLDXO33xk/dL(Normal) Range:57m g/dL-106mg/dL POTASSIUM3.9mmol/L(Normal) Range :3.5mmol/L-5.1mmol/L BDVVSO855nsko/L(Normal) Range:13 6mmol/L-145mmol/L TOTAL PROTEIN5.5g/dL(Low) Range: 5.7g/dL-8.2g/dL CORRECTED CALCIUM8.7mg/dL(Normal) Range:8.5mg/dL-10.1mg/dL Comments:Calcium corrected for Albumin. MAGNESIUM Ordered On:29-Aug-2024 06:22 MAGNESIUM1.8mg/dL(Normal) Rang e:1.6mg/dL-2.6mg/dL CBC WITH DIFFERENTIAL Ordered On:29-Aug-2024 06:30 BASOPHIL #0.0210*3/uL(Normal) Range:0.0110*3/uL-0.0810*3/uL BASOPHIL %0.5%(Normal) Range:0.2 %-1.2% EOSINOPHIL #0.1610*3/uL(Normal) Range:0.0410*3/uL-0.5410*3/uL EOSINOPHIL %3.7%(Normal) Range:0 .8%-7% TOPFVEWBIS19.9%(Low) Range:40.1% -51% BMKMYYTHXQ64.1g/dL(Low) Range:13 .7g/dL-17.5g/dL Comments:RESULTS VERIFIED BY REPEAT ANALYSIS IMMATURE GRANULOCYTE S #0.0110*3/uL(Normal) Range:010*3/uL-0.0310*3/uL IMMATURE GRANULOCYTE S %0.2%(Normal) Range:0%-0.4% LYMPHOCYTE #1.2510*3/uL(Low) Ran ge:1.3210*3/uL-3.5710*3/uL LYMPHOCYTE %29.3%(Normal) Range: 21.8%-53.1% MEAN CELL HGB32.4pg(High) Range: 25.7pg-32.2pg MEAN CELL HGB JMJNKAPQMURMI04.7g/dL(Normal) Range:32.3g/dL-36.5g/dL MEAN CELL UFWNPC92.0fL(High) Ran ge:79fL-92.2fL MONOCYTE #0.4010*3/uL(Normal) Ra nge:0.310*3/uL-0.8210*3/uL MONOCYTE %9.4%(Normal) Range:5.3 %-12.2% MEAN PLATELET HXFUKK08.1fL(Normal) Range:9.4fL-12.4fL NEUTROPHIL #2.4310*3/uL(Normal) Range:1.7810*3/uL-5.3810*3/uL NEUTROPHIL %56.9%(Normal) Range: 34%-67.9% NUCLEATED RED BLOOD CELL #0.0010*3/uL(Normal) Range:010*3/uL-0.1810*3/uL NUCLEATED RED BLOOD CELL %0.0%(Normal) Range:0%-0.2% PLATELET KXVYO05332*3/uL(Low) Ra nge:56299*3/uL-00103*3/uL RED BLOOD CELL3.7410*6/uL(Low) R daniel:4.6310*6/uL-6.0810*6/uL RED CELL DISTRIBUTIO N WIDTH13.9%(Normal) Range:11.6%-14.4% WHITE BLOOD CELL4.310*3/uL(Normal) Range:410*3/uL-10.510*3/uL GLUCOSE POINT OF CARE Ordered On:28-Aug-2024 Com ments:RN NotifiedCleaned Meter 28-Aug-2024 20:36 GLUCOSE POINT OF IIFI869jy/dL(High) Range:70mg/dL-110mg/dL GLUCOSE POINT OF CARE Ordered On:28-Aug-2024 Com ments:RN NotifiedCleaned Meter 28-Aug-2024 16:33 GLUCOSE POINT OF AIKW887qg/dL(High) Range:70mg/dL-110mg/dL COMPREHENSIVE METABOLIC PANEL Ordered On:28-Aug-2024 15:15 ALBUMIN/GLOBULIN RATIO1.6(Normal) Range:0.7-3.6 ALBUMIN3.3g/dL(Normal) Range:3.2 g/dL-4.8g/dL ALKALINE PHOSPHATASE WXXAV097D/L(High) Range:46U/L-116U/L SGPT/ALT42U/L(Normal) Range:10U/ L-49U/L Comments:VENIPUNCTURE SHOULD OCCUR PRIOR TO SULFASALAZINE AND/ORSULFAPYRIDINE ADMINISTRATION DUE TO THE POTENTIAL FORFALSELY DEPRESSED RESULTS. SGOT/AST59U/L(High) Range:0U/L-3 4U/L Comments:VENIPUNCTURE SHOULD OCCUR PRIOR TO SULFASALAZINE AND/ORSULFAPYRIDINE ADMINISTRATION DUE TO THE POTENTIAL FORFALSELY DEPRESSED RESULTS. BILIRUBIN TOTAL0.9mg/dL(Normal) Range:0.3mg/dL-1.2mg/dL Comments:FOR PATIENTS ON ELTROMBOPAG THERAPY, THE USE OF SIEMENS TBIMETHOD IS NOT RECOMMENDED. BUN/CREATININE RATIO15(Normal) R daniel:4-33 BLOOD UREA KVEFSGFR09sn/dL(Normal) Range:9mg/dL-23mg/dL CALCIUM8.2mg/dL(Low) Range:8.7mg /dL-10.4mg/dL VCFEIDIV235uqhi/L(High) Range:98 mmol/L-107mmol/L [place] QAAHTXV82zbaz/L(Normal) R daniel:20mmol/L-31mmol/L CREATININE0.9mg/dL(Normal) Range :0.7mg/dL-1.3mg/dL ANION AGV9eyne/L(Low) Range:7mmo l/L-16mmol/L eGFR> 90 Range:90-0 Comments:The eGFR is calculated using the 2020 CKD-EPI Cr equation,which includes serum Cr, age, and sex but does not include arace coefficient. The National Kidney Foundation recommendsthis formula for calculating eGFR in adults. GFR will notcalculate if sex is unknown or patient age is <18 years.Ref range: >/=90mL/min/1.73m2 GLOBULIN2.1g/dL(Normal) Range:1. 4g/dL-4.8g/dL XHICQHJ043rs/dL(High) Range:57mg /dL-106mg/dL POTASSIUM3.5mmol/L(Normal) Range :3.5mmol/L-5.1mmol/L RVKKCI243kvfl/L(Normal) Range:13 6mmol/L-145mmol/L TOTAL PROTEIN5.4g/dL(Low) Range: 5.7g/dL-8.2g/dL CORRECTED CALCIUM8.8mg/dL(Normal) Range:8.5mg/dL-10.1mg/dL Comments:Calcium corrected for Albumin. TROPI HIGH SENSITIVITY Ordered On:28-Aug-2024 15:15 TROPI HIGH QBMGOYYEQBX15wp/L(Critical High) Range:0-54ng/L Comments:RESULTS CALLED TO AND READ BACK BY ANEEHS N[place]OLES RN ON 3FRN/LPNON 08/28/24 AT 1515 BY: LOPEZ GLUCOSE POINT OF CARE Ordered On:28-Aug-2024 Com ments:KAVITA NotifiedCleaned Meter 28-Aug-2024 15:25 GLUCOSE POINT OF BQVP217ns/dL(High) Range:70mg/dL-110mg/dL CBC Ordered On:28-Aug-2024 08:21 WHXGZYZPHZ31.5%(Normal) Range: 40.1%-51% YJFLNNYRSN45.3g/dL Range:13.7g/d L-17.5g/dL Comments:RECOLLECTED TO VERIFY HGB RESULTS MEAN CELL HGB32.2pg(Normal) Rang e:25.7pg-32.2pg MEAN CELL HGB QSVCMIHUBOTOE10.6g/dL(Normal) Range:32.3g/dL-36.5g/dL MEAN CELL VTROKL95.7fL(High) Ran ge:79fL-92.2fL PLATELET SNTRN71425*3/uL(Low) Ra nge:88990*3/uL-61681*3/uL RED BLOOD CELL4.4410*6/uL(Low) R daniel:4.6310*6/uL-6.0810*6/uL RED CELL DISTRIBUTIO N WIDTH13.8%(Normal) Range:11.6%-14.4% WHITE BLOOD CELL5.210*3/uL(Normal) Range:410*3/uL-10.510*3/uL GLUCOSE POINT OF CARE Ordered On:28-Aug-2024 Com ments:RN NotifiedCleaned Meter 28-Aug-2024 05:58 GLUCOSE POINT OF BEGC499xu/dL(High) Range:70mg/dL-110mg/dL BASIC METABOLIC PANEL Ordered On:28-Aug-2024 06:35 BUN/CREATININE RATIO13(Normal) Range:4-33 BLOOD UREA IVEFCSDT97zq/dL(Normal) Range:9mg/dL-23mg/dL CALCIUM8.8mg/dL(Normal) Range:8. 7mg/dL-10.4mg/dL NFXLGILM997ahie/L(Normal) Range: 98mmol/L-107mmol/L CARBON JRYZVQP71cfkl/L(Normal) R daniel:20mmol/L-31mmol/L CREATININE0.9mg/dL(Normal) Range :0.7mg/dL-1.3mg/dL ANION CAD1sjgp/L(Normal) Range:7 mmol/L-16mmol/L eGFR> 90 Range:90-0 Comments:The eGFR is calculated using the 2020 CKD-EPI Cr equation,which includes serum Cr, age, and sex but does not include arace coefficient. The National Kid[employer] Foundation recommendsthis formula for calculating eGFR in adults. GFR will notcalculate if sex is unknown or patient age is <18 years.Ref range: >/=90mL/min/1.73m2 MKXWRRE129wq/dL(High) Range:57mg /dL-106mg/dL POTASSIUM4.0mmol/L(Normal) Range :3.5mmol/L-5.1mmol/L QPWIBU588bbem/L(Normal) Range:13 6mmol/L-145mmol/L MAGNESIUM Ordered On:28-Aug-2024 06:35 MAGNESIUM1.5mg/dL(Low) Range:1 .6mg/dL-2.6mg/dL PROTHROMBIN TIME PROFILE Ordered On:28-Aug-2024 Comments:Is patient on IV He jacey or Argatroban therapy? No 28-Aug-2024 06:25 INTERNATIONAL NORMAL RATIO1.1(Normal) Range:0.8-1.1 Comments:Use INR for clinical decision makingRecommended Therapeutic Range:INDICATION TARGETED INR RANGEProphylaxis in high risk surgery 2.0-2.5Treatment of DVT or Pulmonary Embolism 2.0-3.0Prophylaxis Systemic Embolism inCardiac Disease 2.0-3.0Mechanical Prosthetic Heart ValveRecurrent Systemic Embolism 2.5-3.5 PROTHROMBIN TIME12.1s(Normal) Ra nge:10s-12.8s Comments:New methodology, please review new reference ranges. PTT PROFILE Ordered On:28-Aug-2024 Comments: Is patient on IV Heparin or Argatroban therapy? No 28-Aug-2024 06:25 PTT31s(Normal) Range:25s-38s Comments:Therapeutic heparin range is 58-92 seconds. GLUCOSE POINT OF CARE Ordered On:27-Aug-2024 Com ments:KAVITA NotifiedCleaned Meter 27-Aug-2024 19:39 GLUCOSE POINT OF PEXG780ru/dL(High) Range:70mg/dL-110mg/dL GLUCOSE POINT OF CARE Ordered On:27-Aug-2024 Com ments:KAVITA NotifiedCleaned Meter 27-Aug-2024 15:35 GLUCOSE POINT OF JHYR782pe/dL(High) Range:70mg/dL-110mg/dL PTT PROFILE Ordered On:27-Aug-2024 Comments: Is patient on IV Heparin or Argatroban therapy? Yes 27-Aug-2024 15:09 PTT72s(Critical High) Range:25 s-38s Comments:Therapeutic heparin range is 58-92 seconds. PLATELET COUNT AV Ordered On:27-Aug-2024 Comment s:Is this an add-on request? No 27-Aug-2024 12:54 PLATELET GBREX8827*3/uL(Low) R daniel:47264*3/uL-06812*3/uL PTT PROFILE Ordered On:27-Aug-2024 Comments: Is patient on IV Heparin or Argatroban therapy? YesIs this an add-on request? No 27-Aug-2024 08:03 PTT76s(Critical High) Range:25 s-38s Comments:Therapeutic heparin range is 58-92 seconds. GLUCOSE POINT OF CARE Ordered On:27-Aug-2024 Com ments:KAVITA Notified 27-Aug-2024 05:43 GLUCOSE POINT OF CKGV152ay/dL(High) Range:70mg/dL-110mg/dL TROPI HIGH SENSITIVITY Ordered On:27-Aug-2024 06:13 TROPI HIGH KECJNJRQLED069mx/L(Critical High) Range:0-54ng/L Comments:RESULTS CALLED TO AND READ BACK BY LEROY CARR RN/3FELISA 08/27/24 AT 0613 BY: IRLALT1 BASIC METABOLIC PANEL Ordered On:27-Aug-2024 02:08 BUN/CREATININE RATIO15(Normal) Range:4-33 BLOOD UREA XTZGEPMY87zq/dL(Normal) Range:9mg/dL-23mg/dL CALCIUM7.8mg/dL(Low) Range:8.7mg /dL-10.4mg/dL VHSXNPMM941bjuv/L(High) Range:98 mmol/L-107mmol/L CARBON TQOSVVZ90byxk/L(Normal) R daniel:20mmol/L-31mmol/L CREATININE0.9mg/dL(Normal) Range :0.7mg/dL-1.3mg/dL ANION ZDJ2cxhb/L(Normal) Range:7 mmol/L-16mmol/L eGFR> 90 Range:90-0 Comments:The eGFR is calculated using the 2020 CKD-EPI Cr equation,which includes serum Cr, age, and sex but does not include arace coefficient. The National Kidney Foundation recommendsthis formula for calculating eGFR in adults. GFR will notcalculate if sex is unknown or patient age is <18 years.Ref range: >/=90mL/min/1.73m2 FGMLCFR37lq/dL(Normal) Range:57m g/dL-106mg/dL POTASSIUM3.5mmol/L(Normal) Range :3.5mmol/L-5.1mmol/L BTCWWV489uotz/L(Normal) Range:13 6mmol/L-145mmol/L MAGNESIUM Ordered On:27-Aug-2024 02:08 MAGNESIUM1.4mg/dL(Low) Range:1 .6mg/dL-2.6mg/dL CBC Ordered On:27-Aug-2024 02:00 EOJKCMVLNQ75.9%(Low) Range:40. 1%-51% FCOEOAYAAS96.8g/dL(Low) Range:13 .7g/dL-17.5g/dL Comments:DELTA CHECK! SIGNIFICANT change from previous result.RESULTS CALLED TO: CLAUDIA WALLS 3F at 0200 08/27/24 MEAN CELL HGB31.2pg(Normal) Rang e:25.7pg-32.2pg MEAN CELL HGB TRVYNTVAHDPTT28.9g/dL(Normal) Range:32.3g/dL-36.5g/dL MEAN CELL CUTUUR99.0fL(High) Ran ge:79fL-92.2fL PLATELET PFFBK1204*3/uL(Low) Ran ge:20787*3/uL-35975*3/uL RED BLOOD CELL3.7810*6/uL(Low) R daniel:4.6310*6/uL-6.0810*6/uL RED CELL DISTRIBUTIO N WIDTH14.2%(Normal) Range:11.6%-14.4% WHITE BLOOD CELL6.010*3/uL(Normal) Range:410*3/uL-10.510*3/uL PTT PROFILE Ordered On:27-Aug-2024 Comments: Is patient on IV Heparin or Argatroban therapy? Yes 27-Aug-2024 02:02 PTT68s(Critical High) Range:25 s-38s Comments:Therapeutic heparin range is 58-92 seconds. GLUCOSE POINT OF CARE Ordered On:26-Aug-2024 Com ments:RN Notified 26-Aug-2024 19:42 GLUCOSE POINT OF IGKF148wk/dL(High) Range:70mg/dL-110mg/dL PTT PROFILE Ordered On:26-Aug-2024 Comments: Is patient on IV Heparin or Argatroban therapy? Yes 26-Aug-2024 17:24 PTT> 200s(Critical High) Range :25s-38s Comments:CALLED RESULTS TO MAKSIM BURNS RN 3SAT 1724 BY [facility] ON 08/26/24.Were the results read back to the tech? YTherapeutic heparin range is 58-92 seconds. GLUCOSE POINT OF CARE Ordered On:26-Aug-2024 Com ments:RN Notified 26-Aug-2024 16:03 GLUCOSE POINT OF AOBW803jb/dL(High) Range:70mg/dL-110mg/dL POTASSIUM Ordered On:26-Aug-2024 12:01 POTASSIUM3.7mmol/L(Normal) Ran ge:3.5mmol/L-5.1mmol/L CREATININE Ordered On:26-Aug-2024 12:01 CREATININE1.0mg/dL(Normal) Ran ge:0.7mg/dL-1.3mg/dL MAGNESIUM Ordered On:26-Aug-2024 12:01 MAGNESIUM1.6mg/dL(Normal) Rang e:1.6mg/dL-2.6mg/dL LACTIC ACID Ordered On:26-Aug-2024 12:09 LACTIC ACID3.7mmol/L(High) Ran ge:0.5mmol/L-2mmol/L Comments:ALL LACTIC ACID VALUES BETWEEN 2.0 AND 3.3 SHOULD BE CALLEDTO NURSING FOR SEPSIS EVALUATION. THIS IS NOT A CRITICALVALUE.RESULTS CALLED TO AND READ BACK BY MAKSIM BURNS 3FKAVITA/YEVGENIY 08/26/24 AT 1209 BY: IRLBCC GLUCOSE POINT OF CARE Ordered On:26-Aug-2024 Com ments:RN Notified 26-Aug-2024 10:59 GLUCOSE POINT OF SZAN440ki/dL(High) Range:70mg/dL-110mg/dL LACTIC ACID 3 Ordered On:26-Aug-2024 10:59 LACTIC ACID 34.0mmol/L(Critical High) Range:0.5mmol/L-2mmol/L Comments:RESULTS CALLED TO AND READ BACK BY MAKSIM BURNS RN/MITALI 08/26/24 AT 1059 BY: [email or web address] PROTHROMBIN TIME PROFILE Ordered On:26-Aug-2024 Comments:Is patient on IV He jacey or Argatroban therapy? No 26-Aug-2024 10:07 INTERNATIONAL NORMAL RATIO1.3(High) Range:0.8-1.1 Comments:Use INR for clinical decision makingRecommended Therapeutic Range:INDICATION TARGETED INR RANGEProphylaxis in high risk surgery 2.0-2.5Treatment of DVT or Pulmonary Embolism 2.0-3.0Prophylaxis Systemic Embolism inCardiac Disease 2.0-3.0Mechanical Prosthetic Heart ValveRecurrent Systemic Embolism 2.5-3.5 PROTHROMBIN TIME14.2s(High) Rang e:10s-12.8s Comments:New methodology, please review new reference ranges. PTT PROFILE Ordered On:26-Aug-2024 Comments: Is patient on IV Heparin or Argatroban therapy? No 26-Aug-2024 10:07 PTT28s(Normal) Range:25s-38s Comments:Therapeutic heparin range is 58-92 seconds. AMMONIA Ordered On:26-Aug-2024 09:25 BWUWAUB27roaz/L(High) Range:11 umol/L-32umol/L LACTIC ACID 2 Ordered On:26-Aug-2024 09:33 LACTIC ACID 24.9mmol/L(Critical High) Range:0.5mmol/L-2mmol/L Comments:RESULTS CALLED TO AND READ BACK BY MAKSIM BURNS RN/MITALI 08/26/24 AT 0932 BY: [email or web address] LACTIC ACID Ordered On:26-Aug-2024 08:11 LACTIC ACID4.5mmol/L (Critical High) Range:0.5mmol/L-2mmol/L Comments:RESULTS CALLED TO AND READ BACK BY 3F - MAKSIM PATEL/YEVGENIY 08/26/24 AT 0811 BY: IRLSMW HEPATITIS PROFILE ACUTE Ordered On:26-Aug-2024 13:43 AB HEPATITIS A IGMNEGATIVE Ran ge:NEGATIVE AB HEPATITIS B CORE IGMNEGATIVE Range:NEGATIVE AG HEPATITIS B SURFACENEGATIVE R daniel:NEGATIVE AB HEPATITIS CNEGATIVE Range:NEG ATIVE GLUCOSE POINT OF CARE Ordered On:26-Aug-2024 Com ments:RN Notified 26-Aug-2024 05:54 GLUCOSE POINT OF ZDOR947zr/dL(High) Range:70mg/dL-110mg/dL CBC WITH DIFFERENTIAL Ordered On:26-Aug-2024 05:50 BASOPHIL #0.0510*3/uL(Normal) Range:0.0110*3/uL-0.0810*3/uL BASOPHIL %0.8%(Normal) Range:0.2 %-1.2% EOSINOPHIL #0.0710*3/uL(Normal) Range:0.0410*3/uL-0.5410*3/uL EOSINOPHIL %1.1%(Normal) Range:0 .8%-7% LLROYOOIUT81.7%(Normal) Range:40 .1%-51% UUQKFRMWQP41.1g/dL(Normal) Range :13.7g/dL-17.5g/dL IMMATURE GRANULOCYTE S #0.0210*3/uL(Normal) Range:010*3/uL-0.0310*3/uL IMMATURE GRANULOCYTE S %0.3%(Normal) Range:0%-0.4% LYMPHOCYTE #2.1110*3/uL(Normal) Range:1.3210*3/uL-3.5710*3/uL LYMPHOCYTE %32.8%(Normal) Range: 21.8%-53.1% MEAN CELL HGB32.1pg(Normal) Rang e:25.7pg-32.2pg MEAN CELL HGB VMMWHNSQYLNUZ80.6g/dL(Normal) Range:32.3g/dL-36.5g/dL MEAN CELL XYSOJN51.7fL(High) Ran ge:79fL-92.2fL MONOCYTE #0.4510*3/uL(Normal) Ra nge:0.310*3/uL-0.8210*3/uL MONOCYTE %7.0%(Normal) Range:5.3 %-12.2% MEAN PLATELET DCIQWX51.0fL(Normal) Range:9.4fL-12.4fL NEUTROPHIL #3.7410*3/uL(Normal) Range:1.7810*3/uL-5.3810*3/uL NEUTROPHIL %58.0%(Normal) Range: 34%-67.9% NUCLEATED RED BLOOD CELL #0.0010*3/uL(Normal) Range:010*3/uL-0.1810*3/uL NUCLEATED RED BLOOD CELL %0.0%(Normal) Range:0%-0.2% PLATELET BJIDD09915*3/uL(Low) Ra nge:94068*3/uL-59640*3/uL RED BLOOD CELL4.3910*6/uL(Low) R daniel:4.6310*6/uL-6.0810*6/uL RED CELL DISTRIBUTIO N WIDTH13.6%(Normal) Range:11.6%-14.4% WHITE BLOOD CELL6.410*3/uL(Normal) Range:410*3/uL-10.510*3/uL COMPREHENSIVE METABOLIC PANEL Ordered On:26-Aug-2024 06:32 HYGJSV442nffl/L(Normal) Range: 136mmol/L-145mmol/L POTASSIUM3.6mmol/L(Normal) Range :3.5mmol/L-5.1mmol/L PNZYXTDX696ilqt/L(Normal) Range: 98mmol/L-107mmol/L CARBON FDWWDJM71exbi/L(Normal) R daniel:20mmol/L-31mmol/L ANION ULB62sphg/L(Normal) Range: 7mmol/L-16mmol/L JZLNMHS400hb/dL(High) Range:57mg /dL-106mg/dL BLOOD UREA FYKYMXHA7lj/dL(Normal) Range:9mg/dL-23mg/dL CREATININE1.0mg/dL(Normal) Range :0.7mg/dL-1.3mg/dL BUN/CREATININE RATIO9(Normal) Ra nge:4-33 eGFR86.2(Low) Range:90-0 Comments:The eGFR is calculated using the 2020 CKD-EPI Cr equation,which includes serum Cr, age, and sex but does not include arace coefficient. The National Kidney Foundation recommendsthis formula for calculating eGFR in adults. GFR will notcalculate if sex is unknown or patient age is <18 years.Ref range: >/=90mL/min/1.73m2 TOTAL PROTEIN5.8g/dL(Normal) Ran ge:5.7g/dL-8.2g/dL ALBUMIN3.5g/dL(Normal) Range:3.2 g/dL-4.8g/dL GLOBULIN2.3g/dL(Normal) Range:1. 4g/dL-4.8g/dL ALBUMIN/GLOBULIN RATIO1.5(Normal) Range:0.7-3.6 CALCIUM7.9mg/dL(Low) Range:8.7mg /dL-10.4mg/dL CORRECTED CALCIUM8.3mg/dL(Low) R daniel:8.5mg/dL-10.1mg/dL Comments:Calcium corrected for Albumin. BILIRUBIN TOTAL1.0mg/dL(Normal) Range:0.3mg/dL-1.2mg/dL Comments:FOR PATIENTS ON ELTROMBOPAG THERAPY, THE USE OF SIEMENS TBIMETHOD IS NOT RECOMMENDED. SGOT/OQI980E/L(High) Range:0U/L- 34U/L Comments:VENIPUNCTURE SHOULD OCCUR PRIOR TO SULFASALAZINE AND/ORSULFAPYRIDINE ADMINISTRATION DUE TO THE POTENTIAL FORFALSELY DEPRESSED RESULTS. SGPT/ALT70U/L(High) Range:10U/L- 49U/L Comments:VENIPUNCTURE SHOULD OCCUR PRIOR TO SULFASALAZINE AND/ORSULFAPYRIDINE ADMINISTRATION DUE TO THE POTENTIAL FORFALSELY DEPRESSED RESULTS. ALKALINE PHOSPHATASE QJPGA965Q/L(High) Range:46U/L-116U/L PHOSPHORUS Ordered On:26-Aug-2024 06:32 PHOSPHORUS2.7mg/dL(Normal) Ran ge:2.4mg/dL-5.1mg/dL MAGNESIUM Ordered On:26-Aug-2024 06:32 MAGNESIUM1.7mg/dL(Normal) Rang e:1.6mg/dL-2.6mg/dL AG PROSTATE SPECIFIC Ordered On:26-Aug-2024 12:37 AG PROSTATE SPECIFIC0.8ng/mL R daniel:0ng/mL-4ng/mL Comments:PSA is intended to be used as an aid in the detection andmanagement of prostate cancer.See the 2013 [place] [employer] (AUA)guidelines for result interpretation. TROPI HIGH SENSITIVITY Ordered On:26-Aug-2024 12:37 TROPI HIGH OTJNKRWKKWD847er/L(Critical High) Range:0-54ng/L Comments:RESULTS CALLED TO AND READ BACK BY Martha PATEL/YEVGENIY 08/26/24 AT 0811 BY: MICHAELA GLUCOSE POINT OF CARE Ordered On:26-Aug-2024 Com ments:RN Notified 26-Aug-2024 02:21 GLUCOSE POINT OF EWLC027xm/dL(High) Range:70mg/dL-110mg/dL URINALYSIS W/REFLEX CULTURE Ordered On:26-Aug-2024 Comments:Indication for cult ure: RiskForSepsis-no oth src 26-Aug-2024 02:27 UA APPEARANCEClear Range:CLEAR UA BILIRUBIN DIPSTICKNegativemg/dL Range:NEGATIVE mg/dL UA BLOOD DIPSTICKNegativemg/dL R daniel:NEGATIVE mg/dL UA COLORLight Yellow Range:YELLO W UA GLUCOSE DIPSTICK> 1000 (4+)mg/dL(Abnormal) Range:NEGATIVE mg/dL UA KETONE DIPSTICKNegativemg/dL Range:NEGATIVE mg/dL UA LEUKOCYTE ESTERAS E DIPSTICKNegative{MAIRA/uL} Range:NEGATIVE Maira/uL UA NITRITE DIPSTICKNegativemg/dL Range:NEGATIVE mg/dL UA PH DIPSTICK7.0(Normal) Range: 4.5-7.5 UA PROTEIN DIPSTICKNegativemg/dL Range:NEGATIVE mg/dL UA SPECIFIC GRAVITY1.010(Normal) Range:1.005-1.03 UA UROBILINOGEN DIPSTICKNormalmg/dL Range:Normal mg/dL UR DRUG SCREEN Ordered On:26-Aug-2024 02:43 UR AMPHETAMINENEGATIVE Range:N EGATIVE Comments:QUALITATIVE PROCEDURE ONLYCUTOFF CONCENTRATIOM - GREATER THAN OR EQUAL TO 1000 ng/mLBASED ON SAMHSA RECOMMENDATIONS FOR SCREENING DRUGS IN HUMAURINE. RESULTS TO BE USED FOR MEDICAL PURPOSES ONLY. UR BARBITURATESNEGATIVE Range:NE GATIVE Comments:QUALITATIVE PROCEDURE ONLYCUTOFF CONCENTRATION - GREATER THAN OR EQUAL TO 200 ng/mLBASED ON SAMHSA RECOMMENDATIONS FOR SCREENING DRUGS IN HUMANURINE. RESULTS TO BE USED FOR MEDICAL PURPOSES ONLY. UR BENZOPIAZEPINESNEGATIVE Range :NEGATIVE Comments:QUALITATIVE PROCEDURE ONLYCUTOFF CONCENTRATION - GREATER THAN OR EQUAL TO 200 ng/mLBASED ON SAMHSA RECOMMENDATIONS FOR SCREENING DRUGS IN HUMANURINE. RESULTS TO BE USED FOR MEDICAL PURPOSES ONLY. UR COCAINENEGATIVE Range:NEGATIV E UR FENTANYL QUALNEGATIVE Range:N EGATIVE Comments:CUTOFF CONCENTRATION - GREATER THAN OR EQUAL TO 1 ng/mLBASED ON SAMHSA RECOMMENDATIONS FOR SCREENING DRUGS IN HUMANURINE. RESULTS TO BE USED FOR MEDICAL PURPOSES ONLY. UR METHADONE QUALNEGATIVE Range: NEGATIVE Comments:QUALITATIVE PROCEDURE ONLYCUTOFF CONCENTRATION - GREATER THAN OR EQUAL TO 300 ng/mLBASED ON SAMHSA RECOMMENDATIONS FOR SCREENING DRUGS IN HUMANURINE. RESULTS TO BE USED FOR MEDICAL PURPOSES ONLY. UR OPIATESPRESUMPTIV E POSITIVE(Abnormal) Range:NEGATIVE Comments:QUALITATIVE PROCEDURE ONLYCUTOFF CONCENTRATION - GREATER THAN OR EQUAL TO 300 ng/mLBASED ON [facility] RECOMMENDATIONS FOR SCREENING DRUGS IN HUMANURINE. RESULTS TO BE USED FOR MEDICAL PURPOSES ONLY. UR TRICYCLIC ANTIDEPRESSANTSNEGATIVE Range:NEGATIVE Comments:This is a screen for only the drugs listed above. A negativetest for a specific drug class indicates that the drug classis absent or may be present in a concentration below thedesignated cutoff level for the drug class. Unconfirmednegative Urine Drug of Abuse screen results are supportedfor medical purposes only. Clinical consideration andprofessional judgement should be applied to any drug ofabuse test result. More comprehensive confirmatory testingis available upon request.Results equal to or greater than the followingconcentrations are considered POSITIVE (PRESUMPTIVEPOSITIVE):DRUG CLASS CUT OFF LEVELAmphetamines 1000 ng/mLBarbiturates 200 ng/mLBenzodiazepines 200 ng/mLCocaine 300 ng/mLCannabinoids (THC) 50 ng/mLOpiates 300 ng/mLFentanyl 1.0 ng/mLTricyclics 1000 ng/mLMethadone 300 ng/mL UR CANNABINOID (THC)NEGATIVE Ran ge:NEGATIVE Comments:QUALITATIVE PROCEDURE ONLYCUTOFF CONCENTRATION - GREATER THAN OR EQUAL TO 50 ng/mLBASED ON [facility] RECOMMENDATIONS FOR SCREENING DRUGS IN HUMANURINE. RESULTS TO BE USED FOR MEDICAL PURPOSES ONLY. TROPI HIGH SENSITIVITY Ordered On:26-Aug-2024 02:44 TROPI HIGH ESJFJLSIYUO833ik/L(Critical High) Range:0-54ng/L Comments:RESULTS CALLED TO AND READ BACK BY AKILA HIRSCH/YEVGENIY 08/26/24 AT 0244 BY: PEÑA ARTERIAL BLOOD GAS Ordered On:26-Aug-2024 00:52 ABG ALLENS TESTUnk Comments: TESTING PERFORMED BY RESPIRATORY CARE BAROMETRIC KSQSIEGV961jo[Hg] ABG BASE EXCESS-1.0mmol/L(Normal) Range:-2mmol/L-2mmol/L ABG DELIVERYRoom Air ABG HWR805.0%(Normal) Range:20%- 100% ABG GNSCCIQSGNM62.3mmol/L(Normal) Range:22mmol/L-26mmol/L HEMOGLOBIN POC14.6g/dL(Normal) R daniel:13g/dL-18g/dL P5026.8mm[Hg](Normal) Range:25mm [Hg]-30mm[Hg] ABG AUI293.8mm[Hg](Normal) Range :35mm[Hg]-45mm[Hg] CORRECTED ABG PQE687.8mm[Hg](Normal) Range:35mm[Hg]-45mm[Hg] ABG BLOOD GAS PH7.372(Normal) Ra nge:7.35-7.45 CORRECTED ABG PH7.372(Normal) Ra nge:7.35-7.45 ABG GAS PO245.0mm[Hg ](Critical low) Range:80mm[Hg]-100mm[Hg] Comments:Results rechecked by [id number] on 08/26/2024 12:51:18 AMCalled To and Read Back by BILL TAYLOR MDVerbal read-back of results confirmed.5108/26/24 CORRECTED ABG PO245.0mm[Hg](Low) Range:80mm[Hg]-100mm[Hg] ABG SO279.0%(Critical low) Range :96%-100% Comments:Results rechecked by [id number] on 08/26/2024 12:51:18 AMCalled To and Read Back by BILL TAYLOR MDVerbal read-back of results confirmed.5108/26/24 ABG SITEOther ARTERIAL TOTAL CARBO N NNAFKVY74.6mmol/L(Normal) Range:24mmol/L-30mmol/L ABG JYQKSCAWCXO23.0Cel ABG TYPEBLOOD Venous CO-OX PROFILE Ordered On:26-Aug-2024 00:52 CO-OX CARBOXYHEMOGLOBIN5.5{%_tHb}(Hi gh) Range:0{%_tHb}-3{%_tHb} CO-OX METHEMOGLOBIN0.3%(Normal) Range:0%-3% CO-OX TOTAL SDQMSUFVJD24.6g/dL(Normal) Range:13.5g/dL-18g/dL CBC WITH DIFFERENTIAL Ordered On:25-Aug-2024 00:13 BASOPHIL #0.0210*3/uL(Normal) Range:0.0110*3/uL-0.0810*3/uL BASOPHIL %0.4%(Normal) Range:0.2 %-1.2% EOSINOPHIL #0.0610*3/uL(Normal) Range:0.0410*3/uL-0.5410*3/uL EOSINOPHIL %1.1%(Normal) Range:0 .8%-7% EJRKRYKFEQ46.1%(Normal) Range:40 .1%-51% GGPPLZGCJW76.5g/dL(Normal) Range :13.7g/dL-17.5g/dL IMMATURE GRANULOCYTE S #0.0210*3/uL(Normal) Range:010*3/uL-0.0310*3/uL IMMATURE GRANULOCYTE S %0.4%(Normal) Range:0%-0.4% LYMPHOCYTE #2.4110*3/uL(Normal) Range:1.3210*3/uL-3.5710*3/uL LYMPHOCYTE %42.3%(Normal) Range: 21.8%-53.1% MEAN CELL HGB32.3pg(High) Range: 25.7pg-32.2pg MEAN CELL HGB YYEQASRFJBAQA79.1g/dL(Normal) Range:32.3g/dL-36.5g/dL MEAN CELL SBYUUF22.9fL(Normal) R daniel:79fL-92.2fL MONOCYTE #0.4810*3/uL(Normal) Ra nge:0.310*3/uL-0.8210*3/uL MONOCYTE %8.4%(Normal) Range:5.3 %-12.2% MEAN PLATELET ZVJSKJ90.1fL(Normal) Range:9.4fL-12.4fL NEUTROPHIL #2.7110*3/uL(Normal) Range:1.7810*3/uL-5.3810*3/uL NEUTROPHIL %47.4%(Normal) Range: 34%-67.9% NUCLEATED RED BLOOD CELL #0.0010*3/uL(Normal) Range:010*3/uL-0.1810*3/uL NUCLEATED RED BLOOD CELL %0.0%(Normal) Range:0%-0.2% PLATELET AAJZJ86765*3/uL(Low) Ra nge:31750*3/uL-60339*3/uL RED BLOOD CELL4.8010*6/uL(Normal) Range:4.6310*6/uL-6.0810*6/uL RED CELL DISTRIBUTIO N WIDTH13.7%(Normal) Range:11.6%-14.4% WHITE BLOOD CELL5.710*3/uL(Normal) Range:410*3/uL-10.510*3/uL COMPREHENSIVE METABOLIC PANEL Ordered On:25-Aug-2024 01:04 ALBUMIN/GLOBULIN RATIO1.5(Normal) Range:0.7-3.6 ALBUMIN4.0g/dL(Normal) Range:3.2 g/dL-4.8g/dL ALKALINE PHOSPHATASE BSDVJ679Z/L(High) Range:46U/L-116U/L SGPT/ALT53U/L(High) Range:10U/L- 49U/L Comments:VENIPUNCTURE SHOULD OCCUR PRIOR TO SULFASALAZINE AND/ORSULFAPYRIDINE ADMINISTRATION DUE TO THE POTENTIAL FORFALSELY DEPRESSED RESULTS. SGOT/AST52U/L(High) Range:0U/L-3 4U/L Comments:VENIPUNCTURE SHOULD OCCUR PRIOR TO SULFASALAZINE AND/ORSULFAPYRIDINE ADMINISTRATION DUE TO THE POTENTIAL FORFALSELY DEPRESSED RESULTS. BILIRUBIN TOTAL0.7mg/dL(Normal) Range:0.3mg/dL-1.2mg/dL Comments:FOR PATIENTS ON ELTROMBOPAG THERAPY, THE USE OF SIEMENS TBIMETHOD IS NOT RECOMMENDED. BUN/CREATININE RATIO7(Normal) Ra nge:4-33 BLOOD UREA ZSQGZWQF7su/dL(Normal) Range:9mg/dL-23mg/dL CALCIUM8.2mg/dL(Low) Range:8.7mg /dL-10.4mg/dL RTOBTHMB96ewbt/L(Low) Range:98mm ol/L-107mmol/L CARBON XBOEQUJ22glyn/L(Normal) R daniel:20mmol/L-31mmol/L CREATININE1.2mg/dL(Normal) Range :0.7mg/dL-1.3mg/dL ANION XXV53vali/L(Normal) Range: 7mmol/L-16mmol/L eGFR69.2(Low) Range:90-0 Comments:The eGFR is calculated using the 2020 CKD-EPI Cr equation,which includes serum Cr, age, and sex but does not include arace coefficient. The National Kidney Foundation recommendsthis formula for calculating eGFR in adults. GFR will notcalculate if sex is unknown or patient age is <18 years.Ref range: >/=90mL/min/1.73m2 GLOBULIN2.6g/dL(Normal) Range:1. 4g/dL-4.8g/dL NAVAYCK057kj/dL(High) Range:57mg /dL-106mg/dL POTASSIUM3.0mmol/L(Low) Range:3. 5mmol/L-5.1mmol/L SUWSUB010mlnm/L(Normal) Range:13 6mmol/L-145mmol/L TOTAL PROTEIN6.6g/dL(Normal) Ran ge:5.7g/dL-8.2g/dL CORRECTED CALCIUM8.2mg/dL(Low) R daniel:8.5mg/dL-10.1mg/dL Comments:Calcium corrected for Albumin. MAGNESIUM Ordered On:25-Aug-2024 01:04 MAGNESIUM1.7mg/dL(Normal) Rang e:1.6mg/dL-2.6mg/dL THYROID STIMULATING HORMONE Ordered On:25-Aug-2024 01:04 THYROID STIMULATING HORMONE0.80uU/mL(Normal) Range:0.55uU/mL-4.78uU/mL TROPI HIGH SENSITIVITY Ordered On:25-Aug-2024 01:04 TROPI HIGH QNHTNUOWKDI16gg/L(Critical High) Range:0-54ng/L Comments:RESULTS CALLED TO AND READ BACK BY AKILA HIRSCH/YEVGENIY 08/26/24 AT 0035 BY: PEÑA ALCOHOL (ETHANOL) BLOOD Ordered On:25-Aug-2024 01:04 ALCOHOL (ETHANOL) PIEXU842ua/dL Comments:EXPECTED VALUES: UP TO 10 mg/dL MAY BE OBSERVED DUE TO PRESENCE OF VOLATILE REDUCING SUBSTANCES AND DOES NOT NECESSARILY INDICATE INGESTION OF ETHANOL.RANGE: < 10 mg/dL IS INCONCLUSIVE > 10 mg/dL INDICATES ETHANOL INGESTIONTOXIC: > 150 mg/dL ACETONE QUAL Ordered On:25-Aug-2024 01:04 ACETONE QUALNEGATIVE Range:NEG ATIVE B TYPE NATRIURETIC PEPTIDE Ordered On:25-Aug-2024 00:25 B TYPE NATRIURETIC WQBAFZQ22.7pg/mL(Normal) Range:0pg/mL-100pg/mL Comments:BNP is a neurohormone secreted mainly in the cardiacventricles in response to volume expansion and pressureoverload. Because conditions other than heart failure canresult in an elevated BNP level, the clinical context of apatient with a positive BNP must be considered.Dialysis patients will have elevated BNP levels reflectingincreased ventricular filling pressure. Increased BNP levelscan also be observed in AMI severe enough to elevateventricular pressure.While a negative BNP value makes the diagnosis of heartfailure unlikely, it does not exclude the diagnosis of otherpotentially serious medical conditions such as unstableangina, AMI, asthma, COPD, or pulmonary embolism. PROTHROMBIN TIME PROFILE Ordered On:25-Aug-2024 Comments:Is patient on IV He jacey or Argatroban therapy? NoIs this an add-on request? No 26-Aug-2024 00:33 INTERNATIONAL NORMAL RATIO1.2(High) Range:0.8-1.1 Comments:Use INR for clinical decision makingRecommended Therapeutic Range:INDICATION TARGETED INR RANGEProphylaxis in high risk surgery 2.0-2.5Treatment of DVT or Pulmonary Embolism 2.0-3.0Prophylaxis Systemic Embolism inCardiac Disease 2.0-3.0Mechanical Prosthetic Heart ValveRecurrent Systemic Embolism 2.5-3.5 PROTHROMBIN TIME13.6s(High) Rang e:10s-12.8s Comments:New methodology, please review new reference ranges. PTT PROFILE Ordered On:25-Aug-2024 Comments:I s patient on IV Heparin or Argatroban therapy? NoIs this an add-on request? No 26-Aug-2024 00:33 PTT28s(Normal) Range:25s-38s Comments:Therapeutic heparin range is 58-92 seconds. GLUBED Ordered On:07-Jul-2024 15:55 EVSDNG988kh/dL(High) Range:65m g/dL-99mg/dL Comments:Performed by certified dough mixing machine operator at [facility] GLUBED Ordered On:07-Jul-2024 14:21 VMMEYT233lo/dL(High) Range:65m g/dL-99mg/dL Comments:Performed by certified dough mixing machine operator at [facility] INFLUENZA A AG, INFLUENZA B AG Ordered On:07-Jul-2024 13:29 INFLUENZA A AGResultLine:-Result Prompts:INFLUENZA A ANTIGEN INFLUENZA A NEGATIVE INFLUENZA B AGResultLine:-Result Prompts:INFLUENZA B ANTIGEN INFLUENZA B NEGATIVE COVID 19 INHOUSE AG Ordered On:07-Jul-2024 13:30 COVID 19 INHOUSE AGNEGATIVE Ra nge:Negative Comments: The Tanika SARS Antigen KATHE does not differentiate betweenSARS-CoV and SARS-CoV-2 The Tanika SARS Antigen KATHE employs immunofluorescencetechnology in a sandwich design that is used with Tanika todetect nucleocapsid protein from SARS-CoV and SARS-CoV-2.This test allows for the detection of SARS-CoV ikfQGYS-NuC-0. The test detects, but does not differentiate,between the two viruses. Results are for the identification of LDOF-QfF-6rlqgafmrxcyw protein antigen. Antigen is generallydetectable in upper respiratory specimens during the acutephase of infection. Positive results indicate the presenceof viral antigens, but clinical correlation with patienthistory and other diagnostic information is necessary todetermine infection status. Positive results do not rule outbacterial infection or co-infection with other viruses. Theagent detected may not be the definite cause of disease. Negative results should be treated as presumptive This test has not been FDA cleared or approved; the testhas been authorized by FDA under an Emergency UseAuthorization (EUA) for use by laboratories certified undert CLIA that meet the requirements to perform moderate,high or waived complexity tests. This test is authorized foruse at the Point of Care (POC), i.e., in patient caresettings operating under a CLIA Certificate of Waiver,Certificate of Compliance, or Certificate of Accreditation CBC W/AUTO DIFF Ordered On:07-Jul-2024 13:00 BASOPHIL #0.0210*3/uL(Normal) Range:010*3/uL-0.210*3/uL BASOPHIL %0.4%(Normal) Range:0%- 0.5% EOSINOPHIL #0.0910*3/uL(Normal) Range:010*3/uL-0.510*3/uL EOSINOPHIL %1.8%(Normal) Range:0 %-2.7% RNMMOXMVNL39.9%(Normal) Range:42 %-52% OWBFMRFCNT49.2g/dL(Normal) Range :14g/dL-17g/dL LYMPHOCYTE #1.9410*3/uL(Normal) Range:110*3/uL-4.810*3/uL LYMPHOCYTE %39.7%(Normal) Range: 24%-44% MEAN CELL HGB29.9pg(Normal) Rang e:27pg-31pg MEAN CELL HGB MWAAOHGJSSRZ82.9g/dL(Normal) Range:33g/dL-37g/dL MEAN CELL CGODWH36.4fL(Normal) R daniel:80fL-94fL MONOCYTE #0.4810*3/uL(Normal) Ra nge:010*3/uL-0.810*3/uL MONOCYTE %9.8%(High) Range:0%-4% MEAN PLATELET QJWVAF47.5fL(High) Range:7.4fL-10.4fL NEUTROPHIL #2.3610*3/uL(Normal) Range:1.810*3/uL-7.710*3/uL NEUTROPHIL %48.3%(Normal) Range: 42%-86% PLATELET EANGG74622*3/uL(Low) Ra nge:19100*3/uL-15031*3/uL RED BLOOD CELL5.0810*6/uL(Normal) Range:4.710*6/uL-6.110*6/uL RED CELL DISTRIBUTIO N WIDTH14.1%(Normal) Range:11.5%-14.5% WHITE BLOOD CELL4.8910*3/uL(Normal) Range:4.810*3/uL-10.810*3/uL UA RFLX MICROSOPIC Ordered On:07-Jul-2024 13:22 UA APPEARANCECLEAR Range:CLEAR UA BILIRUBIN DIPSTICKNEGATIVE Ra nge:NEGATIVE UA BLOOD DIPSTICKNEGATIVE Range: NEGATIVE UA COLORYELLOW Range:YELLOW UA COMMENTVOLUME 10-12 ML UA GLUCOSE NANNTXHM8141uy/dL(Abnormal) Range:NEGATIVE mg/dL UA KETONE DIPSTICKNEGATIVEmg/dL Range:NEGATIVE mg/dL UA LEUKOCYTE ESTERAS E DIPSTICKNEGATIVE Range:NEGATIVE UA NITRITE DIPSTICKNEGATIVE Rang e:NEGATIVE UA PH DIPSTICK7.0(Normal) Range: 5.5-7 UA PROTEIN DIPSTICKNEGATIVEmg/dL Range:NEGATIVE mg/dL UA SPECIFIC GRAVITY1.005(Normal) Range:1.001-1.035 URINE SPECIMEN DESCRIPTIONClean Catch UA UROBILINOGEN DIPSTICKNORMALmg/dL Range:NORMAL mg/dL DRUG OF ABUSE SCREEN URINE Ordered On:07-Jul-2024 13:24 UR AMPHETAMINENEGATIVE Range:N EGATIVE UR BARBITURATE QUALNEGATIVE Rang e:NEGATIVE UR BENZODIAZEPINENEGATIVE Range: NEGATIVE UR CANNABINOIDSNEGATIVE Range:NE GATIVE UR COCAINENEGATIVE Range:NEGATIV E UR MDMANEGATIVE Range:NEGATIVE UR OPIATES QUALNEGATIVE Range:NE GATIVE UR PHENCYCLIDINE (PCP)NEGATIVE R daniel:NEGATIVE Comments:Urine Drug Abuse Screen provides preliminary results thatmay be confirmed by alternate methods (i.e., GC/MS) at [facility]. Results of screen may not be usedin criminal justice, job performance or professionalcredential review, or infant custody issues. Negative [place] Level ng/ml ----- Cocaine 300 Methamphetamine (Ecstacy) 500 Cannabinoids (THC) 50 Amphetamine 1000 Barbiturates 200 Benzodiazepines 200 Opiates 300 Phencyclidine (PCP) 25 COMPREHENSIVE METABOLIC PANEL Ordered On:07-Jul-2024 13:28 ALBUMIN/GLOBULIN RATIO1.1(Normal) Range:1.1-2.2 ALBUMIN3.4g/dL(Normal) Range:3.4 g/dL-5g/dL ALKALINE PHOSPHATASE WNMHS896C/L(Normal) Range:50U/L-136U/L SGPT/ALT65U/L(Normal) Range:30U/ L-65U/L Comments:Results of this assay method may be falsely depressed orelevated if patient is taking sulfasalazine. SGOT/AST89U/L(High) Range:15U/L- 37U/L Comments:Results of this assay method may be falsely depressed orelevated if patient is taking sulfasalazine. BILIRUBIN TOTAL0.6mg/dL(Normal) Range:0mg/dL-1mg/dL BLOOD UREA NISSUABL96ym/dL(Normal) Range:6mg/dL-20mg/dL CALCIUM8.7mg/dL(Normal) Range:8. 7mg/dL-10.5mg/dL YIDRPZUZ45txha/L(Low) Range:100m mol/L-108mmol/L [place] TCACNPM21usbb/L(Normal) R daniel:22mmol/L-32mmol/L CREATININE1.25mg/dL(High) Range: 0.6mg/dL-1mg/dL GLOMERULAR FILTRATIO N RATE66(Normal) Range:49-113 Comments:The Glomerular Filtration Rate is a calculated parameterbased on serum Creatinine, patient age and sex. GFR valuesless than 60 mL/min/1.73 square meters are indicative ofChronic Kidney Disease. Values less than 15 mL/min/1.73square meters indicate Kidney failure. The calculation forGFR is based on the CKD-EPI (202) calculation. This formulais race indifferent and is the recommended formula for GFRby the National Kidney Foundation for Adults.The GFR will not calculate if the sex is unknown or if thepatient's age is <18 years. GLOBULIN3.2g/dL(Normal) Range:1. 5g/dL-3.8g/dL TSZVGLR922mh/dL(Critical High) R daniel:65mg/dL-99mg/dL Comments:Results of this assay method may be falsely depressed orelevated if patient is taking sulfasalazine. POTASSIUM3.3mmol/L(Low) Range:3. 6mmol/L-5.2mmol/L UPCLXS820bssx/L(Normal) Range:13 3mmol/L-145mmol/L TOTAL PROTEIN6.6g/dL(Normal) Ran ge:6.4g/dL-8.2g/dL CV CALL CHEM Ordered On:07-Jul-2024 13:28 CV CALL CHEMCalled Comments:Lynette veras called to and read back by TASHI GARIBAY RN;.for analyte(s): GLUCOSE .at 1328 - 07/07/24; by [id number]. ALCOHOL Ordered On:07-Jul-2024 14:30 UHYKOQR449ov/dL(High) Range:0m g/dL-10mg/dL Comments:0 - 10: Should be interpreted as NEGATIVE. 11 - 50: None to mild euphoria. 51 - 100: Mild influence on vision and dark adaptation. > 80: Legal intoxication; Depression of AGRICULTURE MANAGER; Increasing degree of poisoning. > 400: Fatalities reported.Results are for medical purposes only and not forlegal or employment evaluative purposes. TROP-I HIGH SENSITIVITY Ordered On:19-Apr-2024 00:57 TROP-I HIGH AZWQHTXFIXS00jp/L R daniel:0-76ng/L Comments:Results above 51 for females and 76 for males are consistent with IFCC Committee recommendations to use the 99th percentile of a normal population as a reference decision-limit.- The use of serial sampling and testing protocol is a recommended practive.- An elevated high sensitiveity troponin level alone is often not sufficient for diagnosis of myocardial infarction.- In order to distinguish acute elevations of high sensitivity troponin from other clinical conditions, the Fourth [place] Definition of Myocardial Infarction stresses clinical assessment and demonstration of a rise and/or fall in serial troponin results above the upper reference limit.Results of this assay method may be falsely depressed orelevated if patient is taking high doses of Biotin. CBC W/AUTO DIFF Ordered On:18-Apr-2024 23:22 BASOPHIL #0.0510*3/uL(Normal) Range:010*3/uL-0.210*3/uL BASOPHIL %0.5%(Normal) Range:0%- 0.5% EOSINOPHIL #0.2110*3/uL(Normal) Range:010*3/uL-0.510*3/uL EOSINOPHIL %2.2%(Normal) Range:0 %-2.7% URNKMZSEDP15.4%(Normal) Range:42 %-52% DNSKMOQUES80.1g/dL(Normal) Range :14g/dL-17g/dL LYMPHOCYTE #3.0010*3/uL(Normal) Range:110*3/uL-4.810*3/uL LYMPHOCYTE %30.8%(Normal) Range: 24%-44% MEAN CELL HGB32.3pg(High) Range: 27pg-31pg MEAN CELL HGB GOQFNHBSHQRS67.3g/dL(Normal) Range:33g/dL-37g/dL MEAN CELL ZDBKNN47.0fL(High) Ran ge:80fL-94fL MONOCYTE #0.6910*3/uL(Normal) Ra nge:010*3/uL-0.810*3/uL MONOCYTE %7.1%(High) Range:0%-4% MEAN PLATELET BHCYNU56.0fL(High) Range:7.4fL-10.4fL NEUTROPHIL #5.7810*3/uL(Normal) Range:1.810*3/uL-7.710*3/uL NEUTROPHIL %59.4%(Normal) Range: 42%-86% PLATELET FHVII45438*3/uL(Normal) Range:78521*3/uL-10919*3/uL RED BLOOD CELL4.3710*6/uL(Low) R daniel:4.710*6/uL-6.110*6/uL RED CELL DISTRIBUTIO N WIDTH12.9%(Normal) Range:11.5%-14.5% WHITE BLOOD CELL9.7310*3/uL(Normal) Range:4.810*3/uL-10.810*3/uL THROMBOPLASTIN TIME PARTIAL Ordered On:18-Apr-2024 Comments:Is patient on anticoagulants? No Anticoagulants 18-Apr-2024 23:39 THROMBOPLASTIN TIME XJDDPHR64.3s(Normal) Range:24.7s-38s Comments:*Therapeutic level for heparin: 1.5 - 2.5 times the average patient value of 30.0 seconds. The aPTT tet should not be used to evaluate low moleculat weight heparin anticoagulant therapy. COMPREHENSIVE METABOLIC PANEL Ordered On:18-Apr-2024 00:01 ALBUMIN/GLOBULIN RATIO1.1(Normal) Range:1.1-2.2 ALBUMIN3.9g/dL(Normal) Range:3.4 g/dL-5g/dL ALKALINE PHOSPHATASE MTZBX57E/L(Normal) Range:50U/L-136U/L SGPT/ALT36U/L(Normal) Range:30U/ L-65U/L Comments:Results of this assay method may be falsely depressed orelevated if patient is taking sulfasalazine. SGOT/AST25U/L(Normal) Range:15U/ L-37U/L Comments:Results of this assay method may be falsely depressed orelevated if patient is taking sulfasalazine. BILIRUBIN TOTAL0.3mg/dL(Normal) Range:0mg/dL-1mg/dL BLOOD UREA RWFTAFRW14an/dL(High) Range:6mg/dL-20mg/dL CALCIUM9.4mg/dL(Normal) Range:8. 7mg/dL-10.5mg/dL OTGHHBPS404bnxw/L(Normal) Range: 100mmol/L-108mmol/L CARBON EBONQGM61vvlj/L(Normal) R daniel:22mmol/L-32mmol/L CREATININE1.17mg/dL(High) Range: 0.6mg/dL-1mg/dL GLOMERULAR FILTRATIO N RATE72(Normal) Range:56-130 Comments:The Glomerular Filtration Rate is a calculated parameterbased on serum Creatinine, patient age and sex. GFR valuesless than 60 mL/min/1.73 square meters are indicative ofChronic Kidney Disease. Values less than 15 mL/min/1.73square meters indicate Kidney failure. The calculation forGFR is based on the CKD-EPI (202) calculation. This formulais race indifferent and is the recommended formula for GFRby the National Kidney Foundation for Adults.The GFR will not calculate if the sex is unknown or if thepatient's age is <18 years. GLOBULIN3.5g/dL(Normal) Range:1. 5g/dL-3.8g/dL QFWYBYE672ia/dL(High) Range:65mg /dL-99mg/dL Comments:Results of this assay method may be falsely depressed orelevated if patient is taking sulfasalazine. POTASSIUM3.9mmol/L(Normal) Range :3.6mmol/L-5.2mmol/L PVLZTJ738icjy/L(Normal) Range:13 3mmol/L-145mmol/L TOTAL PROTEIN7.4g/dL(Normal) Ran ge:6.4g/dL-8.2g/dL NT PRO-BRAIN NATRIURETIC PEPTI Ordered On:18-Apr-2024 00:01 NT PRO-BRAIN NATRIUR ETIC GRFRW682dn/mL(High) Range:0pg/mL-125pg/mL Comments:Results of this assay method may be falsely depressed orelevated if patient is taking high doses of Biotin. TROP-I HIGH SENSITIVITY Ordered On:18-Apr-2024 00:01 TROP-I HIGH XETHSSVTYKF81na/L R daniel:0-76ng/L Comments:Results above 51 for females and 76 for males are consistent with IFCC Committee recommendations to use the 99th percentile of a normal population as a reference decision-limit.- The use of serial sampling and testing protocol is a recommended practive.- An elevated high sensitiveity troponin level alone is often not sufficient for diagnosis of myocardial infarction.- In order to distinguish acute elevations of high sensitivity troponin from other clinical conditions, the Fourth [place] Definition of Myocardial Infarction stresses clinical assessment and demonstration of a rise and/or fall in serial troponin results above the upper reference limit.Results of this assay method may be falsely depressed orelevated if patient is taking high doses of Biotin. GLUBED Ordered On:19-Feb-2024 11:15 SZOJKX539zd/dL(High) Range:65mg /dL-99mg/dL Comments:Performed by certified dough mixing machine operator at [facility] GLUBED Ordered On:19-Feb-2024 07:29 CAQXKP635bz/dL(High) Range:65mg /dL-99mg/dL Comments:Performed by certified dough mixing machine operator at [facility] GLUBED Ordered On:18-Feb-2024 19:56 VXOILK159sm/dL(High) Range:65mg /dL-99mg/dL Comments:Performed by certified dough mixing machine operator at [facility] GLUBED Ordered On:18-Feb-2024 16:25 AFMLPU452cm/dL(High) Range:65mg /dL-99mg/dL Comments:Performed by certified dough mixing machine operator at [facility] GLUBED Ordered On:18-Feb-2024 11:11 TFMGEA155vx/dL(High) Range:65mg /dL-99mg/dL Comments:Performed by certified dough mixing machine operator at [facility] GLUBED Ordered On:18-Feb-2024 07:32 XMFSST314hs/dL(High) Range:65mg /dL-99mg/dL Comments:Performed by certified dough mixing machine operator at [facility] CBC W/AUTO DIFF Ordered On:18-Feb-2024 06:25 BASOPHIL #0.0010*3/uL(Normal) R daniel:010*3/uL-0.210*3/uL BASOPHIL %0.0%(Normal) Range:0%- 0.5% EOSINOPHIL #0.0210*3/uL(Normal) Range:010*3/uL-0.510*3/uL EOSINOPHIL %0.3%(Normal) Range:0 %-2.7% GJNZGFDQZW22.3%(Low) Range:42%-5 2% GWKGTBUMYM27.3g/dL(Low) Range:14 g/dL-17g/dL IMMATURE GRANULOCYTE #0.0710*3/uL(High) Range:010*3/uL-0.0310*3/uL IMMATURE GRANULOCYTE %1.1%(Normal) Range:0%-2% LYMPHOCYTE #1.2910*3/uL(Normal) Range:110*3/uL-4.810*3/uL LYMPHOCYTE %20.3%(Low) Range:24% -44% MEAN CELL HGB31.7pg(High) Range: 27pg-31pg MEAN CELL HGB BNAESXJQLCWH05.9g/dL(Normal) Range:33g/dL-37g/dL MEAN CELL PMHDER50.3fL(Normal) R daniel:80fL-94fL MONOCYTE #0.7510*3/uL(Normal) Ra nge:010*3/uL-0.810*3/uL MONOCYTE %11.8%(High) Range:0%-4 % MEAN PLATELET HMQHVB23.4fL(High) Range:7.4fL-10.4fL NUCLEATED RBC #0.010*3/uL(Normal) Range:010*3/uL-0.210*3/uL NUCLEATED RBC %0.0%(Normal) Rang e:0%-0% NEUTROPHIL #4.2410*3/uL(Normal) Range:1.810*3/uL-7.710*3/uL NEUTROPHIL %66.5%(Normal) Range: 42%-86% PLATELET UVRCZ38693*3/uL(Low) Ra nge:49882*3/uL-69482*3/uL RED BLOOD CELL3.5710*6/uL(Low) R daniel:4.710*6/uL-6.110*6/uL RED CELL DISTRIBUTIO N WIDTH18.6%(High) Range:11.5%-14.5% WHITE BLOOD CELL6.3710*3/uL(Normal) Range:4.810*3/uL-10.810*3/uL COMPREHENSIVE METABOLIC PANEL Ordered On:18-Feb-2024 07:24 ALBUMIN/GLOBULIN RATIO0.8(Low) Range:1.1-2.2 ALBUMIN2.1g/dL(Low) Range:3.4g/d L-5g/dL Comments:Please review results with caution Methodology has been changed with new instrumentation ALKALINE PHOSPHATASE SLOZC910K/L(High) Range:46U/L-116U/L Comments:Please review results with caution Methodology has been changed with new instrumentation SGPT/LEK584R/L(High) Range:10U/L -49U/L Comments:Please review results with caution Methodology has been changed with new instrumentation SGOT/MKP0732O/L(High) Range:0U/L -33U/L Comments:Please review results with caution Methodology has been changed with new instrumentation BILIRUBIN TOTAL6.40mg/dL(High) R daniel:0.2mg/dL-1.1mg/dL Comments:Please review results with caution Methodology has been changed with new instrumentation BLOOD UREA XKKDJNRL75dk/dL(Normal) Range:9mg/dL-23mg/dL Comments:Please review results with caution Methodology has been changed with new instrumentation CALCIUM8.2mg/dL(Low) Range:8.3mg /dL-10.6mg/dL Comments:Please review results with caution Methodology has been changed with new instrumentation EMTSKHPJ152ewfw/L(High) Range:98 mmol/L-107mmol/L Comments:Please review results with caution Methodology has been changed with new instrumentation CARBON OERPSMO23.0mmol/L(Normal) Range:20mmol/L-31mmol/L Comments:Please review results with caution Methodology has been changed with new instrumentation CREATININE0.96mg/dL(Normal) Rang e:0.7mg/dL-1.3mg/dL Comments:Please review results with caution Methodology has been changed with new instrumentation GLOMERULAR FILTRATIO N RATE91(Normal) Range:56-130 Comments:The Glomerular Filtration Rate is a calculated parameterbased on serum Creatinine, patient age and sex. GFR valuesless than 60 mL/min/1.73 square meters are indicative ofChronic Kidney Disease. Values less than 15 mL/min/1.73square meters indicate Kidney failure. The calculation forGFR is based on the CKD-EPI (2020) calculation. This formulais race indifferent and is the recommended formula for GFRby the National Kidney Foundation for Adults.The GFR will not calculate if the sex is unknown or if thepatient's age is <18 years. GLOBULIN2.6g/dL(Normal) Range:1. 5g/dL-3.8g/dL OSQECDZ430mx/dL(High) Range:74mg /dL-106mg/dL Comments:Please review results with caution Methodology has been changed with new instrumentation INDEX HEMOLYSISNEGATIVE{Grade} R daniel:0 NEG Grade INDEX ICTERIC1+{Grade} Range:0 N EG Grade POTASSIUM3.6mmol/L(Normal) Range :3.4mmol/L-5.1mmol/L Comments:Please review results with caution Methodology has been changed with new instrumentation INDEX LIPEMIANEGATIVE{Grade} Ran ge:0 NEG Grade VMQNXR071kbvl/L(Normal) Range:13 6mmol/L-145mmol/L Comments:Please review results with caution Methodology has been changed with new instrumentation TOTAL PROTEIN4.7g/dL(Low) Range: 5.7g/dL-8.2g/dL Comments:Please review results with caution Methodology has been changed with new instrumentation GLUBED Ordered On:17-Feb-2024 19:15 CQMXII574ti/dL(High) Range:65mg /dL-99mg/dL Comments:Performed by certified dough mixing machine operator at [facility] GLUBED Ordered On:17-Feb-2024 15:53 HOQEML960ry/dL(High) Range:65mg /dL-99mg/dL Comments:Performed by certified dough mixing machine operator at [facility] GLUBED Ordered On:17-Feb-2024 11:32 KOQQKT397bf/dL(High) Range:65mg /dL-99mg/dL Comments:Performed by certified dough mixing machine operator at [facility] GLUBED Ordered On:17-Feb-2024 07:39 GKFRQV535mt/dL(High) Range:65mg /dL-99mg/dL Comments:Performed by certified dough mixing machine operator at [facility] GLUBED Ordered On:16-Feb-2024 19:19 LZQZCM096os/dL(High) Range:65m g/dL-99mg/dL Comments:Performed by certified dough mixing machine operator at [facility] GLUBED Ordered On:16-Feb-2024 15:49 NIIRKL640kg/dL(High) Range:65m g/dL-99mg/dL Comments:Performed by certified dough mixing machine operator at [facility] GLUBED Ordered On:16-Feb-2024 13:06 LXUXYQ887we/dL(High) Range:65m g/dL-99mg/dL Comments:Performed by certified dough mixing machine operator at [facility] GLUBED Ordered On:16-Feb-2024 08:30 MNCWJD219tx/dL(High) Range:65m g/dL-99mg/dL Comments:Performed by certified dough mixing machine operator at [facility] GLUBED Ordered On:15-Feb-2024 19:34 ZWIIGZ401ws/dL(High) Range:65m g/dL-99mg/dL Comments:Performed by certified dough mixing machine operator at [facility] GLUBED Ordered On:15-Feb-2024 16:08 TWCRPR706be/dL(High) Range:65m g/dL-99mg/dL Comments:Performed by certified dough mixing machine operator at [facility] GLUBED Ordered On:15-Feb-2024 11:11 KZBDNI633uu/dL(High) Range:65m g/dL-99mg/dL Comments:Performed by certified dough mixing machine operator at [facility] URINALYSIS W/O MICRO Ordered On:15-Feb-2024 Comm ents:URINE SOURCE: Clean Catch 15-Feb-2024 10:43 UA APPEARANCECLEAR Range:CLEAR UA BILIRUBIN DIPSTICK3+(Abnormal) Range:NEGATIVE UA BLOOD DIPSTICK1+ UA COLORDark-Yellow Range:YELLOW UA COMMENTVOLUME 10-12 ML UA GLUCOSE DIPSTICK> 1000mg/dL(Abnormal) Range:NEGATIVE mg/dL UA KETONE PEPAHNCG66tg/dL(Abnormal) Range:NEGATIVE mg/dL UA LEUKOCYTE ESTERAS E DIPSTICKNEGATIVE Range:NEGATIVE UA NITRITE DIPSTICKNEGATIVE Rang e:NEGATIVE UA PH DIPSTICK6.5(Normal) Range: 5.5-7 UA PROTEIN THKPJZNF95rw/dL Range :NEGATIVE mg/dL UA SPECIFIC GRAVITY1.019(Normal) Range:1.001-1.035 URINE SPECIMEN DESCRIPTIONClean Catch UA UROBILINOGEN DIPSTICKNORMALmg/dL Range:NORMAL mg/dL GLUBED Ordered On:15-Feb-2024 07:35 SWLOQA445lt/dL(High) Range:65m g/dL-99mg/dL Comments:Performed by certified dough mixing machine operator at [facility] CBC W/AUTO DIFF Ordered On:15-Feb-2024 05:14 BASOPHIL #0.0010*3/uL(Normal) Range:010*3/uL-0.210*3/uL BASOPHIL %0.0%(Normal) Range:0%- 0.5% EOSINOPHIL #0.0110*3/uL(Normal) Range:010*3/uL-0.510*3/uL EOSINOPHIL %0.1%(Normal) Range:0 %-2.7% EWJGLCHKAY88.8%(Low) Range:42%-5 2% OHHLFNIJCC82.8g/dL(Low) Range:14 g/dL-17g/dL IMMATURE GRANULOCYTE #0.0710*3/uL(High) Range:010*3/uL-0.0310*3/uL IMMATURE GRANULOCYTE %1.0%(Normal) Range:0%-2% LYMPHOCYTE #0.5810*3/uL(Low) Ran ge:110*3/uL-4.810*3/uL LYMPHOCYTE %8.3%(Low) Range:24%- 44% MEAN CELL HGB31.7pg(High) Range: 27pg-31pg MEAN CELL HGB VNYFBZQCMOHV27.9g/dL(Low) Range:33g/dL-37g/dL MEAN CELL FSHWFK43.2fL(High) Ran ge:80fL-94fL MANUAL DIFF REQUIRED SCAN PLT_RBC Range:TECH REVIEW MONOCYTE #0.3510*3/uL(Normal) Ra nge:010*3/uL-0.810*3/uL MONOCYTE %5.0%(High) Range:0%-4% MEAN PLATELET XHSOYK62.1fL(High) Range:7.4fL-10.4fL NUCLEATED RBC #0.010*3/uL(Normal) Range:010*3/uL-0.210*3/uL NUCLEATED RBC %0.0%(Normal) Rang e:0%-0% NEUTROPHIL #5.9910*3/uL(Normal) Range:1.810*3/uL-7.710*3/uL NEUTROPHIL %85.6%(Normal) Range: 42%-86% PLATELET AESGP9268*3/uL(Low) Ran ge:50585*3/uL-01802*3/uL RED BLOOD CELL3.4110*6/uL(Low) R daniel:4.710*6/uL-6.110*6/uL RED CELL DISTRIBUTIO N WIDTH18.7%(High) Range:11.5%-14.5% WHITE BLOOD CELL7.0010*3/uL(Normal) Range:4.810*3/uL-10.810*3/uL RBC MORPHOLOGY Ordered On:15-Feb-2024 05:14 RBC MORPHOLOGY COMME NTSee Comment ANISOCYTOSIS1+ PLATELET ESTIMATE Ordered On:15-Feb-2024 05:14 PLATELET ESTIMATEDec(Abnormal) Range:NORMAL COMPREHENSIVE METABOLIC PANEL Ordered On:15-Feb-2024 05:19 ALBUMIN/GLOBULIN RATIO1.1(Normal) Range:1.1-2.2 ALBUMIN2.2g/dL(Low) Range:3.4g/d L-5g/dL Comments:Please review results with caution Methodology has been changed with new instrumentation ALKALINE PHOSPHATASE OMTCQ703G/L(High) Range:46U/L-116U/L Comments:Please review results with caution Methodology has been changed with new instrumentation SGPT/OUM596C/L(High) Range:10U/L -49U/L Comments:Please review results with caution Methodology has been changed with new instrumentation SGOT/YOW851K/L(High) Range:0U/L- 33U/L Comments:Please review results with caution Methodology has been changed with new instrumentation BILIRUBIN TOTAL13.60mg/dL(Critical High) Range:0.2mg/dL-1.1mg/dL Comments:Please review results with caution Methodology has been changed with new instrumentation BLOOD UREA TBTXRJYO77zs/dL(Normal) Range:9mg/dL-23mg/dL Comments:Please review results with caution Methodology has been changed with new instrumentation CALCIUM8.3mg/dL(Normal) Range:8. 3mg/dL-10.6mg/dL Comments:Please review results with caution Methodology has been changed with new instrumentation IWLBJVUC359reic/L(High) Range:98 mmol/L-107mmol/L Comments:Please review results with caution Methodology has been changed with new instrumentation CARBON YFDAKRI22.0mmol/L(Normal) Range:20mmol/L-31mmol/L Comments:Please review results with caution Methodology has been changed with new instrumentation CREATININE1.05mg/dL(Normal) Rang e:0.7mg/dL-1.3mg/dL Comments:Please review results with caution Methodology has been changed with new instrumentation GLOMERULAR FILTRATIO N RATE82(Normal) Range:56-130 Comments:The Glomerular Filtration Rate is a calculated parameterbased on serum Creatinine, patient age and sex. GFR valuesless than 60 mL/min/1.73 square meters are indicative ofChronic Kidney Disease. Values less than 15 mL/min/1.73square meters indicate Kidney failure. The calculation forGFR is based on the CKD-EPI (2020) calculation. This formulais race indifferent and is the recommended formula for GFRby the National Kidney Foundation for Adults.The GFR will not calculate if the sex is unknown or if thepatient's age is <18 years. GLOBULIN2.0g/dL(Normal) Range:1. 5g/dL-3.8g/dL AOJNQMV854gn/dL(High) Range:74mg /dL-106mg/dL Comments:Please review results with caution Methodology has been changed with new instrumentation INDEX HEMOLYSISNEGATIVE{Grade} R daniel:0 NEG Grade INDEX ICTERIC2+{Grade} Range:0 N EG Grade POTASSIUM4.2mmol/L(Normal) Range :3.4mmol/L-5.1mmol/L Comments:Please review results with caution Methodology has been changed with new instrumentation INDEX LIPEMIANEGATIVE{Grade} Ran ge:0 NEG Grade WWZMOZ745yakr/L(Normal) Range:13 6mmol/L-145mmol/L Comments:Please review results with caution Methodology has been changed with new instrumentation TOTAL PROTEIN4.2g/dL(Low) Range: 5.7g/dL-8.2g/dL Comments:Please review results with caution Methodology has been changed with new instrumentation MAGNESIUM Ordered On:15-Feb-2024 05:19 MAGNESIUM2.0mg/dL(Normal) Rang e:1.6mg/dL-2.6mg/dL Comments:Please review results with caution Methodology has been changed with new instrumentation CV CALL CHEM Ordered On:15-Feb-2024 05:19 CV CALL CHEMCalled Comments:Re sults called to and read back by SAHIL KAUR,KAVITA;.for analyte(s): BILT .at 0509 - 02/15/24; by D.LAB.NS. PLATELET MORPHOLOGY Ordered On:15-Feb-2024 05:14 PLATELET MORPHOLOGYV ariable Plt Size(Abnormal) Range:Normal GLUBED Ordered On:14-Feb-2024 20:06 JFFFBX772mu/dL(High) Range:65m g/dL-99mg/dL Comments:Performed by certified dough mixing machine operator at [facility] GLUBED Ordered On:14-Feb-2024 16:03 KMTKLQ185dq/dL(High) Range:65m g/dL-99mg/dL Comments:Performed by certified dough mixing machine operator at [facility] GLUBED Ordered On:14-Feb-2024 11:16 RVDBZA585ek/dL(High) Range:65m g/dL-99mg/dL Comments:Performed by certified dough mixing machine operator at [facility] GLUBED Ordered On:14-Feb-2024 07:37 IZVCYO418tv/dL(High) Range:65m g/dL-99mg/dL Comments:Performed by certified dough mixing machine operator at [facility] GLUBED Ordered On:14-Feb-2024 06:03 MPOWCW368sy/dL(High) Range:65m g/dL-99mg/dL Comments:Performed by certified dough mixing machine operator at [facility] CBC W/AUTO DIFF Ordered On:14-Feb-2024 12:01 BASOPHIL #0.0010*3/uL(Normal) Range:010*3/uL-0.210*3/uL BASOPHIL %0.0%(Normal) Range:0%- 0.5% EOSINOPHIL #0.0010*3/uL(Normal) Range:010*3/uL-0.510*3/uL EOSINOPHIL %0.0%(Normal) Range:0 %-2.7% CIPSRNFWMM57.2%(Low) Range:42%-5 2% DMLHNIWMWV15.5g/dL(Low) Range:14 g/dL-17g/dL IMMATURE GRANULOCYTE #0.0610*3/uL(High) Range:010*3/uL-0.0310*3/uL IMMATURE GRANULOCYTE %0.8%(Normal) Range:0%-2% LYMPHOCYTE #0.4810*3/uL(Low) Ran ge:110*3/uL-4.810*3/uL LYMPHOCYTE %6.3%(Low) Range:24%- 44% MEAN CELL HGB31.3pg(High) Range: 27pg-31pg MEAN CELL HGB HJHZEQAJJEDO25.6g/dL(Low) Range:33g/dL-37g/dL MEAN CELL KPZYLG96.8fL(High) Ran ge:80fL-94fL MANUAL DIFF REQUIRED SCAN PLT_RBC Range:TECH REVIEW MONOCYTE #0.2310*3/uL(Normal) Ra nge:010*3/uL-0.810*3/uL MONOCYTE %3.0%(Normal) Range:0%- 4% MEAN PLATELET UKGDQD69.0fL(High) Range:7.4fL-10.4fL NUCLEATED RBC #0.010*3/uL(Normal) Range:010*3/uL-0.210*3/uL NUCLEATED RBC %0.0%(Normal) Rang e:0%-0% NEUTROPHIL #6.8410*3/uL(Normal) Range:1.810*3/uL-7.710*3/uL NEUTROPHIL %89.9%(High) Range:42 %-86% PLATELET TLADY0702*3/uL(Low) Ran ge:52421*3/uL-66654*3/uL RED BLOOD CELL3.3610*6/uL(Low) R daniel:4.710*6/uL-6.110*6/uL RED CELL DISTRIBUTIO N WIDTH18.4%(High) Range:11.5%-14.5% WHITE BLOOD CELL7.6110*3/uL(Normal) Range:4.810*3/uL-10.810*3/uL RBC MORPHOLOGY Ordered On:14-Feb-2024 12:01 ANISOCYTOSIS1+ MACROCYTOSISOcc PLATELET ESTIMATE Ordered On:14-Feb-2024 12:01 PLATELET ESTIMATEDec(Abnormal) Range:NORMAL Comments:MANUAL PLATELET ESTIMATE: 60,000 /cu.mm. COMPREHENSIVE METABOLIC PANEL Ordered On:14-Feb-2024 07:11 ALBUMIN/GLOBULIN RATIO1.2(Normal) Range:1.1-2.2 ALBUMIN2.3g/dL(Low) Range:3.4g/d L-5g/dL Comments:Please review results with caution Methodology has been changed with new instrumentation ALKALINE PHOSPHATASE NCVCD456L/L(High) Range:46U/L-116U/L Comments:Please review results with caution Methodology has been changed with new instrumentation SGPT/PYT574F/L(High) Range:10U/L -49U/L Comments:Please review results with caution Methodology has been changed with new instrumentation SGOT/FUN496L/L(High) Range:0U/L- 33U/L Comments:Please review results with caution Methodology has been changed with new instrumentation BILIRUBIN TOTAL13.70mg/dL(Critical High) Range:0.2mg/dL-1.1mg/dL Comments:Please review results with caution Methodology has been changed with new instrumentation BLOOD UREA WDOBVRED82gz/dL(Normal) Range:9mg/dL-23mg/dL Comments:Please review results with caution Methodology has been changed with new instrumentation CALCIUM7.9mg/dL(Low) Range:8.3mg /dL-10.6mg/dL Comments:Please review results with caution Methodology has been changed with new instrumentation LZZVSKZF979ihmz/L(High) Range:98 mmol/L-107mmol/L Comments:Please review results with caution Methodology has been changed with new instrumentation CARBON EHKJMFJ56.0mmol/L(Normal) Range:20mmol/L-31mmol/L Comments:Please review results with caution Methodology has been changed with new instrumentation CREATININE1.10mg/dL(Normal) Rang e:0.7mg/dL-1.3mg/dL Comments:Please review results with caution Methodology has been changed with new instrumentation GLOMERULAR FILTRATIO N RATE77(Normal) Range:56-130 Comments:The Glomerular Filtration Rate is a calculated parameterbased on serum Creatinine, patient age and sex. GFR valuesless than 60 mL/min/1.73 square meters are indicative ofChronic Kidney Disease. Values less than 15 mL/min/1.73square meters indicate Kidney failure. The calculation forGFR is based on the CKD-EPI (2020) calculation. This formulais race indifferent and is the recommended formula for GFRby the National Kidney Foundation for Adults.The GFR will not calculate if the sex is unknown or if thepatient's age is <18 years. GLOBULIN1.9g/dL(Normal) Range:1. 5g/dL-3.8g/dL OEFPUDO077xs/dL(High) Range:74mg /dL-106mg/dL Comments:Please review results with caution Methodology has been changed with new instrumentation INDEX HEMOLYSISNEGATIVE{Grade} R daniel:0 NEG Grade INDEX ICTERIC2+{Grade} Range:0 N EG Grade POTASSIUM3.8mmol/L(Normal) Range :3.4mmol/L-5.1mmol/L Comments:Please review results with caution Methodology has been changed with new instrumentation INDEX LIPEMIANEGATIVE{Grade} Ran ge:0 NEG Grade CZYAWS417srrd/L(Normal) Range:13 6mmol/L-145mmol/L Comments:Please review results with caution Methodology has been changed with new instrumentation TOTAL PROTEIN4.2g/dL(Low) Range: 5.7g/dL-8.2g/dL Comments:Please review results with caution Methodology has been changed with new instrumentation MAGNESIUM Ordered On:14-Feb-2024 07:11 MAGNESIUM1.8mg/dL(Normal) Rang e:1.6mg/dL-2.6mg/dL Comments:Please review results with caution Methodology has been changed with new instrumentation CV CALL CHEM Ordered On:14-Feb-2024 07:11 CV CALL CHEMCalled Comments:Re sults called to and read back by SAHRA VALERA RN;.for analyte(s): BILT .at 0711 - 02/14/24; by D.LAB.NS. GLUBED Ordered On:13-Feb-2024 19:33 UGIZOT036xc/dL(High) Range:65m g/dL-99mg/dL Comments:Performed by certified dough mixing machine operator at [facility] GLUBED Ordered On:13-Feb-2024 16:05 UYMEOJ875ef/dL(High) Range:65m g/dL-99mg/dL Comments:Performed by certified dough mixing machine operator at [facility] GLUBED Ordered On:13-Feb-2024 12:03 KYANGM95qf/dL(Normal) Range:65 mg/dL-99mg/dL Comments:Performed by certified dough mixing machine operator at [facility] GLUBED Ordered On:13-Feb-2024 08:01 KVQGFL758cd/dL(High) Range:65m g/dL-99mg/dL Comments:Performed by certified dough mixing machine operator at [facility] GLUBED Ordered On:13-Feb-2024 06:10 HMDVEH212ob/dL(High) Range:65m g/dL-99mg/dL Comments:Performed by certified dough mixing machine operator at [facility] CBC W/AUTO DIFF Ordered On:13-Feb-2024 07:09 BASOPHIL #0.0210*3/uL(Normal) Range:010*3/uL-0.210*3/uL BASOPHIL %0.2%(Normal) Range:0%- 0.5% EOSINOPHIL #0.0010*3/uL(Normal) Range:010*3/uL-0.510*3/uL EOSINOPHIL %0.0%(Normal) Range:0 %-2.7% JAEHJAKNSN13.6%(Low) Range:42%-5 2% OSDHBYBXBF21.8g/dL(Low) Range:14 g/dL-17g/dL IMMATURE GRANULOCYTE #0.1010*3/uL(High) Range:010*3/uL-0.0310*3/uL IMMATURE GRANULOCYTE %0.9%(Normal) Range:0%-2% LYMPHOCYTE #1.0810*3/uL(Normal) Range:110*3/uL-4.810*3/uL LYMPHOCYTE %10.0%(Low) Range:24% -44% MEAN CELL HGB31.6pg(High) Range: 27pg-31pg MEAN CELL HGB LOODOLSWSNDD97.0g/dL(Normal) Range:33g/dL-37g/dL MEAN CELL SCJBLN50.8fL(Normal) R daniel:80fL-94fL MANUAL DIFF REQUIRED SCAN PLT_RBC Range:TECH REVIEW MONOCYTE #0.7910*3/uL(Normal) Ra nge:010*3/uL-0.810*3/uL MONOCYTE %7.3%(High) Range:0%-4% MEAN PLATELET IBXMBG33.1fL(High) Range:7.4fL-10.4fL NUCLEATED RBC #0.010*3/uL(Normal) Range:010*3/uL-0.210*3/uL NUCLEATED RBC %0.0%(Normal) Rang e:0%-0% NEUTROPHIL #8.8510*3/uL(High) Ra nge:1.810*3/uL-7.710*3/uL NEUTROPHIL %81.6%(Normal) Range: 42%-86% PLATELET UKXOO3310*3/uL(Low) Ran ge:01248*3/uL-96335*3/uL RED BLOOD CELL4.0510*6/uL(Low) R daniel:4.710*6/uL-6.110*6/uL RED CELL DISTRIBUTIO N WIDTH18.5%(High) Range:11.5%-14.5% WHITE BLOOD CELL10.8410*3/uL(High) Range:4.810*3/uL-10.810*3/uL RBC MORPHOLOGY Ordered On:13-Feb-2024 07:09 ANISOCYTOSISOcc PLATELET ESTIMATE Ordered On:13-Feb-2024 07:09 PLATELET ESTIMATEDec(Abnormal) Range:NORMAL Comments:MANUAL PLATELET ESTIMATE: 75,000 COMPREHENSIVE METABOLIC PANEL Ordered On:13-Feb-2024 07:02 ALBUMIN/GLOBULIN RATIO1.0(Low) Range:1.1-2.2 ALBUMIN2.6g/dL(Low) Range:3.4g/d L-5g/dL Comments:Please review results with caution Methodology has been changed with new instrumentation ALKALINE PHOSPHATASE UJUEI841H/L(High) Range:46U/L-116U/L Comments:Please review results with caution Methodology has been changed with new instrumentation SGPT/UPR036X/L(High) Range:10U/L -49U/L Comments:Please review results with caution Methodology has been changed with new instrumentation SGOT/SCB455U/L(High) Range:0U/L- 33U/L Comments:Please review results with caution Methodology has been changed with new instrumentation BILIRUBIN TOTAL11.50mg/dL(Critical High) Range:0.2mg/dL-1.1mg/dL Comments:Please review results with caution Methodology has been changed with new instrumentation BLOOD UREA FELUSNLA96kq/dL(Normal) Range:9mg/dL-23mg/dL Comments:Please review results with caution Methodology has been changed with new instrumentation CALCIUM8.3mg/dL(Normal) Range:8. 3mg/dL-10.6mg/dL Comments:Please review results with caution Methodology has been changed with new instrumentation FHRIICZH637usgr/L(Normal) Range: 98mmol/L-107mmol/L Comments:Please review results with caution Methodology has been changed with new instrumentation CARBON RIVIIWE47.0mmol/L(Normal) Range:20mmol/L-31mmol/L Comments:Please review results with caution Methodology has been changed with new instrumentation CREATININE1.36mg/dL(High) Range: 0.7mg/dL-1.3mg/dL Comments:Please review results with caution Methodology has been changed with new instrumentation GLOMERULAR FILTRATIO N RATE60(Normal) Range:56-130 Comments:The Glomerular Filtration Rate is a calculated parameterbased on serum Creatinine, patient age and sex. GFR valuesless than 60 mL/min/1.73 square meters are indicative ofChronic Kidney Disease. Values less than 15 mL/min/1.73square meters indicate Kidney failure. The calculation forGFR is based on the CKD-EPI (2020) calculation. This formulais race indifferent and is the recommended formula for GFRby the National Kidney Foundation for Adults.The GFR will not calculate if the sex is unknown or if thepatient's age is <18 years. GLOBULIN2.5g/dL(Normal) Range:1. 5g/dL-3.8g/dL OGTFWTL261bw/dL(High) Range:74mg /dL-106mg/dL Comments:Please review results with caution Methodology has been changed with new instrumentation INDEX HEMOLYSIS1+{Grade} Range:0 NEG Grade INDEX ICTERIC2+{Grade} Range:0 N EG Grade POTASSIUM4.0mmol/L(Normal) Range :3.4mmol/L-5.1mmol/L Comments:Please review results with caution Methodology has been changed with new instrumentation INDEX LIPEMIANEGATIVE{Grade} Ran ge:0 NEG Grade NXNPCZ673wdaj/L(Low) Range:136mm ol/L-145mmol/L Comments:Please review results with caution Methodology has been changed with new instrumentation TOTAL PROTEIN5.1g/dL(Low) Range: 5.7g/dL-8.2g/dL Comments:Please review results with caution Methodology has been changed with new instrumentation MAGNESIUM Ordered On:13-Feb-2024 07:02 MAGNESIUM2.0mg/dL(Normal) Rang e:1.6mg/dL-2.6mg/dL Comments:Please review results with caution Methodology has been changed with new instrumentation NT PRO-BRAIN NATRIURETIC PEPTI Ordered On:13-Feb-2024 07:02 NT PRO-BRAIN NATRIUR ETIC BAAKX1500ty/mL(High) Range:0pg/mL-299pg/mL Comments:Please review results with caution Methodology has been changed with new instrumentation CV CALL CHEM Ordered On:13-Feb-2024 07:02 CV CALL CHEMCalled Comments:Re sults called to and read back by KIRSTIN BRAUN RN;.for analyte(s): BILT .at 701 - 02/13/24; by D.LAB.NS. GLUBED Ordered On:12-Feb-2024 20:01 RKDOFH834yl/dL(High) Range:65m g/dL-99mg/dL Comments:Performed by certified dough mixing machine operator at [facility] GLUBED Ordered On:12-Feb-2024 16:23 BJGSWS772gq/dL(High) Range:65m g/dL-99mg/dL Comments:Performed by certified dough mixing machine operator at [facility] HEPATIC FUNCTION PANEL Ordered On:12-Feb-2024 16:14 ALBUMIN/GLOBULIN RATIO1.0(Low) Range:1.1-2.2 ALBUMIN2.7g/dL(Low) Range:3.4g/d L-5g/dL Comments:Please review results with caution Methodology has been changed with new instrumentation ALKALINE PHOSPHATASE ANVTG174C/L(High) Range:46U/L-116U/L Comments:Please review results with caution Methodology has been changed with new instrumentation SGPT/RNH163P/L(High) Range:10U/L -49U/L Comments:Please review results with caution Methodology has been changed with new instrumentation SGOT/GPC086F/L(High) Range:0U/L- 33U/L Comments:Please review results with caution Methodology has been changed with new instrumentation BILIRUBIN DIRECT7.4mg/dL(High) R daniel:0.1mg/dL-0.3mg/dL Comments:Please review results with caution Methodology has been changed with new instrumentation BILIRUBIN INDIRECT3.3mg/dL(High) Range:0mg/dL-0.7mg/dL BILIRUBIN TOTAL10.70mg/dL(Critical High) Range:0.2mg/dL-1.1mg/dL Comments:Please review results with caution Methodology has been changed with new instrumentation GLOBULIN2.7g/dL(Normal) Range:1. 5g/dL-3.8g/dL INDEX HEMOLYSIS1+{Grade} Range:0 NEG Grade INDEX ICTERIC2+{Grade} Range:0 N EG Grade INDEX LIPEMIANEGATIVE{Grade} Ran ge:0 NEG Grade TOTAL PROTEIN5.4g/dL(Low) Range: 5.7g/dL-8.2g/dL Comments:Please review results with caution Methodology has been changed with new instrumentation POTASSIUM Ordered On:12-Feb-2024 16:14 POTASSIUM3.4mmol/L Range:3.4mm ol/L-5.1mmol/L Comments:Please review results with caution Methodology has been changed with new instrumentation MAGNESIUM Ordered On:12-Feb-2024 16:14 MAGNESIUM2.6mg/dL(Normal) Rang e:1.6mg/dL-2.6mg/dL Comments:Please review results with caution Methodology has been changed with new instrumentation CV CALL CHEM Ordered On:12-Feb-2024 16:14 CV CALL CHEMCalled Comments:Re eda called to and read back by HOA TAYLOR RN;.for analyte(s): BILT .at 1614 - 02/12/24; by [id number]. ACUTE HEPATITIS PANEL(Pending) Ordered On:12-Feb-2024 Comments:GAVE APPROVAL TO MO VE WITH NEXT DRAW.ADD ON TEST? Yes 14-Feb-2024 07:20 AB HEPATITIS A IGMNegative Ran ge:Negative Comments:A negative anti-HAV IgM result suggests no recent orcurrent HAV infection. Please review results with caution Methodology has been changed with new instrumentation AB HEPATITIS B CORE IGMNegative Range:Negative Comments:Please review results with caution Methodology has been changed with new instrumentation AG HEPATITIS B SURFACENegative R daniel:Negative AB HEPATITIS CNon Reactive Range :Non Reactive Comments:Please review results with caution Methodology has been changed with new instrumentation INTERPRETATION GLUBED Ordered On:12-Feb-2024 11:56 AJIXDA313gb/dL(High) Range:65m g/dL-99mg/dL Comments:Performed by certified dough mixing machine operator at [facility] GLUBED Ordered On:12-Feb-2024 06:17 ECKQSB800np/dL(High) Range:65m g/dL-99mg/dL Comments:Performed by certified dough mixing machine operator at [facility] CBC W/AUTO DIFF Ordered On:12-Feb-2024 10:20 BASOPHIL #0.0210*3/uL(Normal) Range:010*3/uL-0.210*3/uL BASOPHIL %0.4%(Normal) Range:0%- 0.5% EOSINOPHIL #0.0410*3/uL(Normal) Range:010*3/uL-0.510*3/uL EOSINOPHIL %0.7%(Normal) Range:0 %-2.7% TRFYSOEOND91.6%(Low) Range:42%-5 2% UATJSRCKLI59.3g/dL(Low) Range:14 g/dL-17g/dL IMMATURE GRANULOCYTE #0.0210*3/uL(Normal) Range:010*3/uL-0.0310*3/uL IMMATURE GRANULOCYTE %0.4%(Normal) Range:0%-2% LYMPHOCYTE #1.8710*3/uL(Normal) Range:110*3/uL-4.810*3/uL LYMPHOCYTE %34.8%(Normal) Range: 24%-44% MEAN CELL HGB31.1pg(High) Range: 27pg-31pg MEAN CELL HGB CMLOZMNQOEKS68.4g/dL(Normal) Range:33g/dL-37g/dL MEAN CELL JELPMC13.9fL(Normal) R daniel:80fL-94fL MANUAL DIFF REQUIRED SCAN PLT_RBC Range:TECH REVIEW MONOCYTE #0.5410*3/uL(Normal) Ra nge:010*3/uL-0.810*3/uL MONOCYTE %10.0%(High) Range:0%-4 % MEAN PLATELET VJSFYR77.3fL(Normal) Range:7.4fL-10.4fL NUCLEATED RBC #0.010*3/uL(Normal) Range:010*3/uL-0.210*3/uL NUCLEATED RBC %0.0%(Normal) Rang e:0%-0% NEUTROPHIL #2.8910*3/uL(Normal) Range:1.810*3/uL-7.710*3/uL NEUTROPHIL %53.7%(Normal) Range: 42%-86% PLATELET UHIFQ9746*3/uL(Low) Ran ge:74555*3/uL-79018*3/uL RED BLOOD CELL4.2810*6/uL(Low) R daniel:4.710*6/uL-6.110*6/uL RED CELL DISTRIBUTIO N WIDTH18.8%(High) Range:11.5%-14.5% WHITE BLOOD CELL5.3810*3/uL(Normal) Range:4.810*3/uL-10.810*3/uL RBC MORPHOLOGY Ordered On:12-Feb-2024 10:20 MICROCYTOSIS1+ TARGET CELLS1+ PLATELET ESTIMATE Ordered On:12-Feb-2024 10:20 PLATELET ESTIMATEDec(Abnormal) Range:NORMAL Comments:MANUAL PLATELET ESTIMATE: 90,000 BASIC METABOLIC PANEL Ordered On:12-Feb-2024 10:19 BLOOD UREA JYAHCPEW22vu/dL(Normal) Range:9mg/dL-23mg/dL Comments:Please review results with caution Methodology has been changed with new instrumentation CALCIUM7.7mg/dL(Low) Range:8.3mg /dL-10.6mg/dL Comments:Please review results with caution Methodology has been changed with new instrumentation TVQWOESE46upjq/L(Normal) Range:9 8mmol/L-107mmol/L Comments:Please review results with caution Methodology has been changed with new instrumentation CARBON CFGKZPW82.0mmol/L(Normal) Range:20mmol/L-31mmol/L Comments:Please review results with caution Methodology has been changed with new instrumentation CREATININE1.03mg/dL(Normal) Rang e:0.7mg/dL-1.3mg/dL Comments:Please review results with caution Methodology has been changed with new instrumentation GLOMERULAR FILTRATIO N RATE84(Normal) Range:56-130 Comments:The Glomerular Filtration Rate is a calculated parameterbased on serum Creatinine, patient age and sex. GFR valuesless than 60 mL/min/1.73 square meters are indicative ofChronic Kidney Disease. Values less than 15 mL/min/1.73square meters indicate Kidney failure. The calculation forGFR is based on the CKD-EPI (2020) calculation. This formulais race indifferent and is the recommended formula for GFRby the National Kidney Foundation for Adults.The GFR will not calculate if the sex is unknown or if thepatient's age is <18 years. RAEROGU035xe/dL(High) Range:74mg /dL-106mg/dL Comments:Please review results with caution Methodology has been changed with new instrumentation INDEX HEMOLYSIS1+{Grade} Range:0 NEG Grade INDEX ICTERIC1+{Grade} Range:0 N EG Grade POTASSIUM2.6mmol/L(C ritical low) Range:3.4mmol/L-5.1mmol/L Comments:Please review results with caution Methodology has been changed with new instrumentation INDEX LIPEMIANEGATIVE{Grade} Ran ge:0 NEG Grade CAWNFS160mpiq/L(Low) Range:136mm ol/L-145mmol/L Comments:Please review results with caution Methodology has been changed with new instrumentation PHOSPHOROUS Ordered On:12-Feb-2024 10:19 PHOSPHOROUS3.0mg/dL(Normal) Ra nge:2.4mg/dL-5.1mg/dL Comments:Please review results with caution Methodology has been changed with new instrumentation MAGNESIUM Ordered On:12-Feb-2024 10:19 MAGNESIUM1.4mg/dL(Low) Range:1 .6mg/dL-2.6mg/dL Comments:Please review results with caution Methodology has been changed with new instrumentation CV CALL CHEM Ordered On:12-Feb-2024 10:19 CV CALL CHEMCalled Comments:Re sults called to and read back by FRANKIE BILL RN;.for analyte(s): POTASSIUM .at 1019 - 02/12/24; by DEBORA. AMYLASE Ordered On:12-Feb-2024 Comments: ADD ON TEST? Yes 12-Feb-2024 12:44 UHRVQLY63S/L(Normal) Range:30U /L-118U/L Comments:Please review results with caution Methodology has been changed with new instrumentation LIPASE Ordered On:12-Feb-2024 Comments: ADD ON TEST? Yes 12-Feb-2024 12:44 YOMPQX77V/L(Normal) Range:12U/ L-53U/L Comments:Please review results with caution Methodology has been changed with new instrumentation GLUBED Ordered On:12-Feb-2024 03:07 SHBKBF680zd/dL(High) Range:65m g/dL-99mg/dL Comments:Performed by certified dough mixing machine operator at [facility] GLUBED Ordered On:11-Feb-2024 22:45 PWZQKO770xv/dL(High) Range:65m g/dL-99mg/dL Comments:Performed by certified dough mixing machine operator at [facility] TROP-I HIGH SENSITIVITY Ordered On:11-Feb-2024 22:45 TROP-I HIGH MEVRKICWJFX44ld/L(Critical High) Range:0-76ng/L Comments:Results above 51 for females and 76 for males are consistent with IFCC Committee recommendations to use the 99th percentile of a normal population as a reference decision-limit.- The use of serial sampling and testing protocol is a recommended practive.- An elevated high sensitiveity troponin level alone is often not sufficient for diagnosis of myocardial infarction.- In order to distinguish acute elevations of high sensitivity troponin from other clinical conditions, the Fourth [place] Definition of Myocardial Infarction stresses clinical assessment and demonstration of a rise and/or fall in serial troponin results above the upper reference limit.Results of this assay method may be falsely depressed orelevated if patient is taking high doses of Biotin. CV CALL CHEM Ordered On:11-Feb-2024 22:45 CV CALL CHEMCalled Comments:Re sults called to and read back by DR BRICEÑO;.for analyte(s): TROP .at 2245 - 02/11/24; by [id number]. CBC W/AUTO DIFF Ordered On:11-Feb-2024 19:52 BASOPHIL #0.0110*3/uL(Normal) Range:010*3/uL-0.210*3/uL BASOPHIL %0.2%(Normal) Range:0%- 0.5% EOSINOPHIL #0.0110*3/uL(Normal) Range:010*3/uL-0.510*3/uL EOSINOPHIL %0.2%(Normal) Range:0 %-2.7% NYLKYQBFVT80.2%(Low) Range:42%-5 2% XUJZKJZWBR31.6g/dL(Low) Range:14 g/dL-17g/dL LYMPHOCYTE #1.6510*3/uL(Normal) Range:110*3/uL-4.810*3/uL LYMPHOCYTE %33.5%(Normal) Range: 24%-44% MEAN CELL HGB31.1pg(High) Range: 27pg-31pg MEAN CELL HGB RZVCBLCKAHMX33.6g/dL(Normal) Range:33g/dL-37g/dL MEAN CELL LFVDVN55.2fL(Normal) R daniel:80fL-94fL MONOCYTE #0.5510*3/uL(Normal) Ra nge:010*3/uL-0.810*3/uL MONOCYTE %11.2%(High) Range:0%-4 % MEAN PLATELET IEYGQU15.4fL(High) Range:7.4fL-10.4fL NEUTROPHIL #2.7110*3/uL(Normal) Range:1.810*3/uL-7.710*3/uL NEUTROPHIL %54.9%(Normal) Range: 42%-86% PLATELET GTPBA92441*3/uL(Low) Ra nge:84529*3/uL-15490*3/uL RED BLOOD CELL4.3810*6/uL(Low) R daniel:4.710*6/uL-6.110*6/uL RED CELL DISTRIBUTIO N WIDTH18.8%(High) Range:11.5%-14.5% WHITE BLOOD CELL4.9310*3/uL(Normal) Range:4.810*3/uL-10.810*3/uL COMPREHENSIVE METABOLIC PANEL Ordered On:11-Feb-2024 20:39 ALBUMIN/GLOBULIN RATIO0.8(Low) Range:1.1-2.2 ALBUMIN2.4g/dL(Low) Range:3.4g/d L-5g/dL ALKALINE PHOSPHATASE ZQXPD450W/L(High) Range:50U/L-136U/L SGPT/FOU662C/L(High) Range:30U/L -65U/L Comments:Results of this assay method may be falsely depressed orelevated if patient is taking sulfasalazine. SGOT/REP468C/L(High) Range:15U/L -37U/L Comments:Results of this assay method may be falsely depressed orelevated if patient is taking sulfasalazine. BILIRUBIN TOTAL8.4mg/dL(High) Ra nge:0mg/dL-1mg/dL BLOOD UREA HKIMYDIU35mt/dL(Normal) Range:6mg/dL-20mg/dL CALCIUM7.8mg/dL(Low) Range:8.7mg /dL-10.5mg/dL WYTHQRYM41orrp/L(Low) Range:100m mol/L-108mmol/L CARBON YJCHSML25kbwg/L(Normal) R daniel:22mmol/L-32mmol/L CREATININE1.24mg/dL(High) Range: 0.6mg/dL-1mg/dL GLOMERULAR FILTRATIO N RATE67(Normal) Range:56-130 Comments:The Glomerular Filtration Rate is a calculated parameterbased on serum Creatinine, patient age and sex. GFR valuesless than 60 mL/min/1.73 square meters are indicative ofChronic Kidney Disease. Values less than 15 mL/min/1.73square meters indicate Kidney failure. The calculation forGFR is based on the CKD-EPI (2020) calculation. This formulais race indifferent and is the recommended formula for GFRby the National Kidney Foundation for Adults.The GFR will not calculate if the sex is unknown or if thepatient's age is <18 years. GLOBULIN3.2g/dL(Normal) Range:1. 5g/dL-3.8g/dL YGGADWI935dp/dL(Critical High) R daniel:65mg/dL-99mg/dL Comments:VERIFIED BY REPEATED ANALYSIS BY Kindra Virk 02/11/24Results of this assay method may be falsely depressed orelevated if patient is taking sulfasalazine. POTASSIUM4.0mmol/L(Normal) Range :3.6mmol/L-5.2mmol/L QXNNNY719iyht/L(Low) Range:133mm ol/L-145mmol/L TOTAL PROTEIN5.6g/dL(Low) Range: 6.4g/dL-8.2g/dL TROP-I HIGH SENSITIVITY Ordered On:11-Feb-2024 20:39 TROP-I HIGH GAFMYWHCPPM84th/L(Critical High) Range:0-76ng/L Comments:Results above 51 for females and 76 for males are consistent with IFCC Committee recommendations to use the 99th percentile of a normal population as a reference decision-limit.- The use of serial sampling and testing protocol is a recommended practive.- An elevated high sensitiveity troponin level alone is often not sufficient for diagnosis of myocardial infarction.- In order to distinguish acute elevations of high sensitivity troponin from other clinical conditions, the Fourth [place] Definition of Myocardial Infarction stresses clinical assessment and demonstration of a rise and/or fall in serial troponin results above the upper reference limit.Results of this assay method may be falsely depressed orelevated if patient is taking high doses of Biotin. ALCOHOL Ordered On:11-Feb-2024 20:39 QNPLCVG158fx/dL(High) Range:0m g/dL-10mg/dL Comments:Please review results with caution Methodology has been changed with new instrumentation 0 - 10: Should be interpreted as NEGATIVE. 11 - 50: None to mild euphoria. 51 - 100: Mild influence on vision and dark adaptation. > 80: Legal intoxication; Depression of AGRICULTURE MANAGER; Increasing degree of poisoning. > 400: Fatalities reported.Results are for medical purposes only and not forlegal or employment evaluative purposes. CV CALL CHEM Ordered On:11-Feb-2024 20:39 CV CALL CHEMCalled Comments:Re sults called to and read back by KIMBERLY ROLLE RN;.for analyte(s): GLUCOSE/TROP .at 2038 - 02/11/24; by [id number]. PROTHROMBIN TIME Ordered On:11-Feb-2024 Comments :Is patient on anticoagulants? No Anticoagulants 12-Feb-2024 00:36 INTERNATIONAL NORMAL RATIO1.64 Comments:Recommended INR range (warfarin therapy): 2.0 - 3.0INR (International Normalized Ratio) should beused when interpreting oral anticoaglulant therapy.For atrial fibrillation and treatment orprevention of deep vein thrombosis. Patients with Palmaz-Tito stent *: 2.0 - 3.0 Patients with mechanical heart valve *: 2.5 - 3.5 Patients with flex-stent *: 3.0 - 4.0(*) = live source operator's suggested range PROTHROMBIN TIME UAZXELL55.4s(High) Range:9.9s-13.2s GLUBED Ordered On:11-Feb-2024 20:22 GLUBED>600 ABOVE HI LIMITmg/dL(Critical High) Range:65mg/dL-99mg/dL Comments:Performed by certified dough mixing machine operator at [facility] GLUBED Ordered On:10-Feb-2024 16:42 KQULEK095jt/dL(High) Range:65m g/dL-99mg/dL Comments:Performed by certified dough mixing machine operator at [facility] LACTIC ACID Ordered On:10-Feb-2024 17:15 LACTIC ACID3.8mmol/L(High) Ran ge:0.5mmol/L-2.2mmol/L UA RFLX MICROSCOPIC CULTURE Ordered On:10-Feb-2024 Comments:Indication for cult ure: RiskForSepsis-no oth srcURINE SOURCE: Clean Catch 10-Feb-2024 15:09 UA APPEARANCECLEAR Range:CLEAR UA BILIRUBIN DIPSTICK1+(Abnormal) Range:NEGATIVE Comments:Not able to rule out false positive; No confirmatory test. UA BLOOD DIPSTICKNEGATIVE Range: NEGATIVE UA COLORDARK YELLOW Range:YELLOW UA COMMENTVOLUME 10-12 ML UA GLUCOSE HMKJJSMX1011tk/dL(Abnormal) Range:NEGATIVE mg/dL UA KETONE DIPSTICKNEGATIVEmg/dL Range:NEGATIVE mg/dL UA LEUKOCYTE ESTERAS E DIPSTICKNEGATIVE Range:NEGATIVE UA NITRITE DIPSTICKNEGATIVE Rang e:NEGATIVE UA PH DIPSTICK7.0(Normal) Range: 5.5-7 UA PROTEIN DIPSTICKNEGATIVEmg/dL Range:NEGATIVE mg/dL UA SPECIFIC GRAVITY1.010(Normal) Range:1.001-1.035 UA SQUAMOUS CELLS60 - 80{#}/[LPF] Range:0-100{#}/[LPF] UA CULTURE NEEDED?Cr iteria not met URINE SPECIMEN DESCRIPTIONClean Catch UA UROBILINOGEN DIPSTICKNORMALmg/dL Range:NORMAL mg/dL UA WBC< 10{#}/[HPF] Range:0-10{# }/[HPF] DRUG OF ABUSE SCREEN URINE Ordered On:10-Feb-2024 14:59 UR AMPHETAMINENEGATIVE Range:N EGATIVE Comments:Please review results with caution Methodology has been changed with new instrumentation UR BARBITURATE QUALNEGATIVE Rang e:NEGATIVE Comments:Please review results with caution Methodology has been changed with new instrumentation UR BENZODIAZEPINENEGATIVE Range: NEGATIVE Comments:Please review results with caution Methodology has been changed with new instrumentation UR CANNABINOIDSNEGATIVE Range:NE GATIVE Comments:Please review results with caution Methodology has been changed with new instrumentation UR COCAINENEGATIVE Range:NEGATIV E Comments:Please review results with caution Methodology has been changed with new instrumentation UR MDMANEGATIVE Range:NEGATIVE UR OPIATES QUALNEGATIVE Range:NE GATIVE Comments:Please review results with caution Methodology has been changed with new instrumentation UR PHENCYCLIDINE (PCP)NEGATIVE R daniel:NEGATIVE Comments:Urine Drug Abuse Screen provides preliminary results thatmay be confirmed by alternate methods (i.e., GC/MS) at [facility]. Results of screen may not be usedin criminal justice, job performance or professionalcredential review, or infant custody issues. Negative [place] Level ng/ml ----- Cocaine 300 Methamphetamine (Ecstacy) 500 Cannabinoids (THC) 50 Amphetamine 1000 Barbiturates 200 Benzodiazepines 200 Opiates 300 Phencyclidine (PCP) 25 Coronavirus 2019 nCoV Bedside Ordered On:10-Feb-2024 13:49 Coronavirus 2019 nCo V BedsideNegative Range:Negative Comments:ID NOW COVID-19 assay performed on the [employer] hope rapid molecular in vitro diagnostic test utilizing [employer] nucleic acid amplification technology intendedfor the qualitative detection of nucleic acid from wmkAWWW-AeA-4 viral RNA in direct nasal, nasopharyngeal orthroat swabs and nasal, nasopharyngeal or throat swabseluted in viral transport media from individuals who aresuspected of COVID-19 by their healthcare provider.Negative results should be treated as presumptive and, ifinconsistent with clinical signs and symptoms or necessaryfor patient management, should be tested with differentauthorized or cleared molecular tests. Negative results donot preclude SARS-CoV-2 infection and should not be used asthe sole basis for patient management decisions. Negativeresults should be considered in the context of a patient'srecent exposures, history and presence of clinical signs andsymptoms consistent with COVID-19.Results are for the identification of SARS-CoV-2 RNA.For Use Under an Emergency Use Authorization (EUA) OnlyNegative results do not preclude SARS-CoV-2 infection andshould not be used as the sole basis for patient managementdecisions. Negative results must be combined with clinicalobservations, patient history, and epidemiologicalinformation. INFLUENZA A AG, INFLUENZA B AG Ordered On:10-Feb-2024 13:49 INFLUENZA A AGResultLine:-Result Prompts:INFLUENZA A ANTIGEN INFLUENZA A NEGATIVE INFLUENZA B AGResultLine:-Result Prompts:INFLUENZA B ANTIGEN INFLUENZA B NEGATIVE GLUBED Ordered On:10-Feb-2024 13:24 ISKIMS308io/dL(Critical High) Range:65mg/dL-99mg/dL Comments:Performed by certified dough mixing machine operator at [facility] CBC W/AUTO DIFF Ordered On:10-Feb-2024 13:40 BASOPHIL #0.0110*3/uL(Normal) Range:010*3/uL-0.210*3/uL BASOPHIL %0.2%(Normal) Range:0%- 0.5% EOSINOPHIL #0.0110*3/uL(Normal) Range:010*3/uL-0.510*3/uL EOSINOPHIL %0.2%(Normal) Range:0 %-2.7% XWBCPCIVJC56.7%(Low) Range:42%-5 2% BBRGDIIZYT28.2g/dL(Normal) Range :14g/dL-17g/dL LYMPHOCYTE #2.1810*3/uL(Normal) Range:110*3/uL-4.810*3/uL LYMPHOCYTE %36.1%(Normal) Range: 24%-44% MEAN CELL HGB30.9pg(Normal) Rang e:27pg-31pg MEAN CELL HGB SQIDPHQBSQWL67.8g/dL(Normal) Range:33g/dL-37g/dL MEAN CELL XWFCPN12.3fL(Normal) R daniel:80fL-94fL MONOCYTE #0.6510*3/uL(Normal) Ra nge:010*3/uL-0.810*3/uL MONOCYTE %10.8%(High) Range:0%-4 % MEAN PLATELET MWNANI88.9fL(High) Range:7.4fL-10.4fL NEUTROPHIL #3.1910*3/uL(Normal) Range:1.810*3/uL-7.710*3/uL NEUTROPHIL %52.7%(Normal) Range: 42%-86% PLATELET COJQW88081*3/uL(Low) Ra nge:21454*3/uL-34551*3/uL RED BLOOD CELL4.6010*6/uL(Low) R daniel:4.710*6/uL-6.110*6/uL RED CELL DISTRIBUTIO N WIDTH18.6%(High) Range:11.5%-14.5% WHITE BLOOD CELL6.0410*3/uL(Normal) Range:4.810*3/uL-10.810*3/uL BASIC METABOLIC PANEL Ordered On:10-Feb-2024 14:14 BLOOD UREA ZXZVOUCG09dd/dL(Normal) Range:6mg/dL-20mg/dL CALCIUM8.0mg/dL(Low) Range:8.7mg /dL-10.5mg/dL UVEOQLDD43yrkj/L(Low) Range:100m mol/L-108mmol/L CARBON UJOWDGF74efjm/L(Normal) R daniel:22mmol/L-32mmol/L CREATININE1.14mg/dL(High) Range: 0.6mg/dL-1mg/dL GLOMERULAR FILTRATIO N RATE74(Normal) Range:56-130 Comments:The Glomerular Filtration Rate is a calculated parameterbased on serum Creatinine, patient age and sex. GFR valuesless than 60 mL/min/1.73 square meters are indicative ofChronic Kidney Disease. Values less than 15 mL/min/1.73square meters indicate Kidney failure. The calculation forGFR is based on the CKD-EPI (2020) calculation. This formulais race indifferent and is the recommended formula for GFRby the National Kidney Foundation for Adults.The GFR will not calculate if the sex is unknown or if thepatient's age is <18 years. WCPHBXY389ej/dL(Critical High) R daniel:65mg/dL-99mg/dL Comments:VERIFIED BY REPEATED ANALYSIS BY Reji Apple 02/10/24Results of this assay method may be falsely depressed orelevated if patient is taking sulfasalazine. POTASSIUM4.4mmol/L(Normal) Range :3.6mmol/L-5.2mmol/L CDNOTO011xpwe/L Range:133mmol/L- 145mmol/L Comments:VERIFIED BY REPEATED ANALYSIS BY Reji Apple 02/10/24 HEPATIC FUNCTION PANEL Ordered On:10-Feb-2024 14:14 ALBUMIN/GLOBULIN RATIO0.8(Low) Range:1.1-2.2 ALBUMIN2.5g/dL(Low) Range:3.4g/d L-5g/dL ALKALINE PHOSPHATASE OQTJS147S/L(High) Range:50U/L-136U/L SGPT/SRW611S/L(High) Range:30U/L -65U/L Comments:Results of this assay method may be falsely depressed orelevated if patient is taking sulfasalazine. SGOT/NOG505R/L(High) Range:15U/L -37U/L Comments:Results of this assay method may be falsely depressed orelevated if patient is taking sulfasalazine. BILIRUBIN DIRECT4.3mg/dL(High) R daniel:0mg/dL-0.3mg/dL BILIRUBIN INDIRECT2.8mg/dL(High) Range:0mg/dL-0.7mg/dL BILIRUBIN TOTAL7.1mg/dL(High) Ra nge:0mg/dL-1mg/dL GLOBULIN3.0g/dL(Normal) Range:1. 5g/dL-3.8g/dL TOTAL PROTEIN5.5g/dL(Low) Range: 6.4g/dL-8.2g/dL TROP-I HIGH SENSITIVITY Ordered On:10-Feb-2024 14:14 TROP-I HIGH KOQTRMSOCUW30ql/L Range:0-76ng/L Comments:Results above 51 for females and 76 for males are consistent with IFCC Committee recommendations to use the 99th percentile of a normal population as a reference decision-limit.- The use of serial sampling and testing protocol is a recommended practive.- An elevated high sensitiveity troponin level alone is often not sufficient for diagnosis of myocardial infarction.- In order to distinguish acute elevations of high sensitivity troponin from other clinical conditions, the Fourth [place] Definition of Myocardial Infarction stresses clinical assessment and demonstration of a rise and/or fall in serial troponin results above the upper reference limit.Results of this assay method may be falsely depressed orelevated if patient is taking high doses of Biotin. ALCOHOL Ordered On:10-Feb-2024 14:14 VYUZQJN779kn/dL(High) Range:0m g/dL-10mg/dL Comments:Please review results with caution Methodology has been changed with new instrumentation 0 - 10: Should be interpreted as NEGATIVE. 11 - 50: None to mild euphoria. 51 - 100: Mild influence on vision and dark adaptation. > 80: Legal intoxication; Depression of AGRICULTURE MANAGER; Increasing degree of poisoning. > 400: Fatalities reported.Results are for medical purposes only and not forlegal or employment evaluative purposes. CV CALL CHEM Ordered On:10-Feb-2024 14:14 CV CALL CHEMCalled Comments:Re sults called to and read back by RAMU SOTO RN;.for analyte(s): GLU .at 1405 - 02/10/24; by [id number]. LACTIC ACID Ordered On:10-Feb-2024 14:05 LACTIC ACID5.7mmol/L (Critical High) Range:0.5mmol/L-2.2mmol/L Comments:Results called to and read back by RAMU SOTO RN;1405, 02/10/24, Reji Apple. TROP-I HIGH SENSITIVITY Ordered On:21-Jan-2024 17:24 TROP-I HIGH JVXDBLEPHCU77gu/L R daniel:0-76ng/L Comments:Results above 51 for females and 76 for males are consistent with IFCC Committee recommendations to use the 99th percentile of a normal population as a reference decision-limit.- The use of serial sampling and testing protocol is a recommended practive.- An elevated high sensitiveity troponin level alone is often not sufficient for diagnosis of myocardial infarction.- In order to distinguish acute elevations of high sensitivity troponin from other clinical conditions, the Fourth [place] Definition of Myocardial Infarction stresses clinical assessment and demonstration of a rise and/or fall in serial troponin results above the upper reference limit.Results of this assay method may be falsely depressed orelevated if patient is taking high doses of Biotin. CBC W/AUTO DIFF Ordered On:21-Jan-2024 15:39 BASOPHIL #0.0610*3/uL(Normal) R daniel:010*3/uL-0.210*3/uL BASOPHIL %0.7%(High) Range:0%-0. 5% EOSINOPHIL #0.0410*3/uL(Normal) Range:010*3/uL-0.510*3/uL EOSINOPHIL %0.5%(Normal) Range:0 %-2.7% IMSJZEWQJU74.6%(Low) Range:42%-5 2% GNWSWZXFJN66.0g/dL(Low) Range:14 g/dL-17g/dL LYMPHOCYTE #2.1010*3/uL(Normal) Range:110*3/uL-4.810*3/uL LYMPHOCYTE %24.7%(Normal) Range: 24%-44% MEAN CELL HGB30.0pg(Normal) Rang e:27pg-31pg MEAN CELL HGB FRLKRHZLIIGF23.8g/dL(Low) Range:33g/dL-37g/dL MEAN CELL MQBVVI24.5fL(Normal) R daniel:80fL-94fL MONOCYTE #0.6510*3/uL(Normal) Ra nge:010*3/uL-0.810*3/uL MONOCYTE %7.6%(High) Range:0%-4% MEAN PLATELET VOLUME9.8fL(Normal) Range:7.4fL-10.4fL NEUTROPHIL #5.6610*3/uL(Normal) Range:1.810*3/uL-7.710*3/uL NEUTROPHIL %66.5%(Normal) Range: 42%-86% PLATELET QGLPJ34313*3/uL(Normal) Range:17031*3/uL-58839*3/uL RED BLOOD CELL4.3310*6/uL(Low) R daniel:4.710*6/uL-6.110*6/uL RED CELL DISTRIBUTIO N WIDTH16.2%(High) Range:11.5%-14.5% WHITE BLOOD CELL8.5110*3/uL(Normal) Range:4.810*3/uL-10.810*3/uL BASIC METABOLIC PANEL Ordered On:21-Jan-2024 16:07 BLOOD UREA JCLYFWVU4wb/dL(Normal) Range:6mg/dL-20mg/dL CALCIUM8.5mg/dL(Low) Range:8.7mg /dL-10.5mg/dL GGYIDDWA579elab/L(Normal) Range: 100mmol/L-108mmol/L CARBON QZJYETI45eebs/L(Normal) R daniel:22mmol/L-32mmol/L CREATININE1.12mg/dL(High) Range: 0.6mg/dL-1mg/dL GLOMERULAR FILTRATIO N RATE76(Normal) Range:56-130 Comments:The Glomerular Filtration Rate is a calculated parameterbased on serum Creatinine, patient age and sex. GFR valuesless than 60 mL/min/1.73 square meters are indicative ofChronic Kidney Disease. Values less than 15 mL/min/1.73square meters indicate Kidney failure. The calculation forGFR is based on the CKD-EPI (202) calculation. This formulais race indifferent and is the recommended formula for GFRby the National Kidney Foundation for Adults.The GFR will not calculate if the sex is unknown or if thepatient's age is <18 years. NQROYQO280rp/dL(High) Range:65mg /dL-99mg/dL Comments:Results of this assay method may be falsely depressed orelevated if patient is taking sulfasalazine. POTASSIUM3.5mmol/L(Low) Range:3. 6mmol/L-5.2mmol/L HOAGXP146khoc/L(Normal) Range:13 3mmol/L-145mmol/L HEPATIC FUNCTION PANEL Ordered On:21-Jan-2024 16:07 ALBUMIN/GLOBULIN RATIO0.9(Low) Range:1.1-2.2 ALBUMIN3.3g/dL(Low) Range:3.4g/d L-5g/dL ALKALINE PHOSPHATASE VAEIY337V/L(Normal) Range:50U/L-136U/L SGPT/ALT42U/L(Normal) Range:30U/ L-65U/L Comments:Results of this assay method may be falsely depressed orelevated if patient is taking sulfasalazine. SGOT/AST39U/L(High) Range:15U/L- 37U/L Comments:Results of this assay method may be falsely depressed orelevated if patient is taking sulfasalazine. BILIRUBIN DIRECT0.1mg/dL(Normal) Range:0mg/dL-0.3mg/dL BILIRUBIN TOTAL0.4mg/dL(Normal) Range:0mg/dL-1mg/dL GLOBULIN3.5g/dL(Normal) Range:1. 5g/dL-3.8g/dL TOTAL PROTEIN6.8g/dL(Normal) Ran ge:6.4g/dL-8.2g/dL BILIRUBIN INDIRECT0.3mg/dL(Normal) Range:0mg/dL-0.7mg/dL LIPASE Ordered On:21-Jan-2024 16:07 NHZPVW79C/L(Low) Range:16U/L-77 U/L Comments:New Reference Ranges of 16-77 U/L please reviewrevised from 73-393 U/L on 01/02/2023 MAGNESIUM Ordered On:21-Jan-2024 16:07 MAGNESIUM1.7mg/dL(Low) Range:1. 8mg/dL-2.4mg/dL NT PRO-BRAIN NATRIURETIC PEPTI Ordered On:21-Jan-2024 16:07 NT PRO-BRAIN NATRIUR ETIC DFAVM6797wg/mL(High) Range:0pg/mL-125pg/mL Comments:Results of this assay method may be falsely depressed orelevated if patient is taking high doses of Biotin. TROP-I HIGH SENSITIVITY Ordered On:21-Jan-2024 16:07 TROP-I HIGH RTZDROLLJTL45pj/L R daniel:0-76ng/L Comments:Results above 51 for females and 76 for males are consistent with IFCC Committee recommendations to use the 99th percentile of a normal population as a reference decision-limit.- The use of serial sampling and testing protocol is a recommended practive.- An elevated high sensitiveity troponin level alone is often not sufficient for diagnosis of myocardial infarction.- In order to distinguish acute elevations of high sensitivity troponin from other clinical conditions, the Fourth [place] Definition of Myocardial Infarction stresses clinical assessment and demonstration of a rise and/or fall in serial troponin results above the upper reference limit.Results of this assay method may be falsely depressed orelevated if patient is taking high doses of Biotin. ALCOHOL Ordered On:21-Jan-2024 16:07 THJAPTX890hj/dL(High) Range:0mg /dL-10mg/dL Comments:Please review results with caution Methodology has been changed with new instrumentation 0 - 10: Should be interpreted as NEGATIVE. 11 - 50: None to mild euphoria. 51 - 100: Mild influence on vision and dark adaptation. > 80: Legal intoxication; Depression of AGRICULTURE MANAGER; Increasing degree of poisoning. > 400: Fatalities reported.Results are for medical purposes only and not forlegal or employment evaluative purposes. PROTHROMBIN TIME Ordered On:21-Jan-2024 Comments: Is patient on anticoagulants? Unknown 21-Jan-2024 15:46 INTERNATIONAL NORMAL RATIO1.14 Comments:Recommended INR range (warfarin therapy): 2.0 - 3.0INR (International Normalized Ratio) should beused when interpreting oral anticoaglulant therapy.For atrial fibrillation and treatment orprevention of deep vein thrombosis. Patients with Palmaz-Tito stent *: 2.0 - 3.0 Patients with mechanical heart valve *: 2.5 - 3.5 Patients with flex-stent *: 3.0 - 4.0(*) = live source operator's suggested range PROTHROMBIN TIME RZQFSBY45.7s(Normal) Range:9.9s-13.2s Vital Signs 12-Sep-2024 07:17 TEMP ERTVIOU44.7c Comments:36.7 Pulse92/min Comments:92 Respiratory Rate18/min Comments: 18 O2 SAT96% Comments:96 BP Fhwmqpat916om[Hg] Comments:13 5 BP Ozpeoizlc29tt[Hg] Comments:74 12-Sep-2024 03:47 TEMP EHXIKDZ06h Comments:37.0 Pulse99/min Comments:99 Respiratory Rate18/min Comments: 18 O2 SAT95% Comments:95 BP Bxulvojz663kz[Hg] Comments:15 9 BP Stsvhblch47nk[Hg] Comments:83 11-Sep-2024 23:53 TEMP ZKIINKP97.5c Comments:36.5 Pulse85/min Comments:85 Respiratory Rate18/min Comments: 18 O2 SAT97% Comments:97 BP Kpviuxnw320dg[Hg] Comments:13 4 BP Cawexbjzl87zu[Hg] Comments:72 11-Sep-2024 19:19 TEMP TSBGJXR89s Comments:37.0 Pulse86/min Comments:86 Respiratory Rate18/min Comments: 18 O2 SAT98% Comments:98 BP Lzpgarjb232cs[Hg] Comments:14 6 BP Msbjwqwgh72be[Hg] Comments:82 11-Sep-2024 16:41 TEMP HACXICO99.4c Comments:36.4 Pulse88/min Comments:88 Respiratory Rate20/min Comments: 20 O2 SAT98% Comments:98 BP Ohbentkb986oa[Hg] Comments:13 6 BP Gttztgucm56qt[Hg] Comments:65 11-Sep-2024 15:21 TEMP JTRZBLO46.9c Comments:36.9 Pulse90/min Comments:90 Respiratory Rate16/min Comments: 16 O2 SAT97% Comments:97 BP Yoltoyzc821us[Hg] Comments:13 3 BP Gwkerktwb12cq[Hg] Comments:83 11-Sep-2024 10:16 TEMP QVFWXZQ78.5c Comments:36.5 Pulse92/min Comments:92 Respiratory Rate16/min Comments: 16 O2 SAT98% Comments:98 BP Fpoirfit975vr[Hg] Comments:15 1 BP Theojeexc17zu[Hg] Comments:89 11-Sep-2024 07:28 TEMP GIXNUNL46.5c Comments:36.5 Pulse87/min Comments:87 Respiratory Rate18/min Comments: 18 O2 SAT98% Comments:98 BP Yfcfnyuo192iv[Hg] Comments:13 6 BP Siwxopdsr35rf[Hg] Comments:78 11-Sep-2024 07:05 Pulse80/min Comments:80 O2 SAT96% Comments:96 11-Sep-2024 06:35 Pulse84/min Comments:84 O2 SAT98% Comments:98 11-Sep-2024 06:15 Pulse87/min Comments:87 O2 SAT98% Comments:98 11-Sep-2024 06:00 Pulse87/min Comments:87 11-Sep-2024 05:30 Pulse84/min Comments:84 O2 SAT97% Comments:97 11-Sep-2024 05:28 Pulse86/min Comments:86 Respiratory Rate18/min Comments: 18 O2 SAT95% Comments:95 BP Hyiqszwq727qh[Hg] Comments:10 6 BP Agclqjomw05qj[Hg] Comments:65 Oxygen delivery devices: Comment s:Room air 11-Sep-2024 05:00 Pulse88/min Comments:88 O2 SAT99% Comments:99 11-Sep-2024 04:40 Pulse90/min Comments:90 O2 SAT98% Comments:98 11-Sep-2024 04:31 Wamjqcndxvy51.7f Comments:97.7 Pulse91/min Comments:91 Respiratory Rate16/min Comments: 16 O2 SAT99% Comments:99 BP Gfunozyq669nc[Hg] Comments:12 8 BP Wfjyuapjx35bz[Hg] Comments:75 Oxygen delivery devices: Comment s:Room air Height5.1219111[ft_us] Comments: 5 Sohecn58.409kg Comments:82.409 11-Sep-2024 04:31 BMI33.2kg/m2 Comments:33.2 10-Sep-2024 15:09 TEMP MWQYUUH71.6c Comments:36.6 Pulse87/min Comments:87 O2 SAT99% Comments:99 BP Rrygarqf085eh[Hg] Comments:13 0 BP Epjfazvbi57eb[Hg] Comments:70 10-Sep-2024 10:57 TEMP WLSOMBK08.5c Comments:36.5 Pulse82/min Comments:82 Respiratory Rate18/min Comments: 18 O2 SAT93% Comments:93 BP Gapcpgma123fu[Hg] Comments:13 5 BP Utgjzwaza91yt[Hg] Comments:74 10-Sep-2024 07:18 TEMP HGFQCEZ73.9c Comments:36.9 Pulse88/min Comments:88 Respiratory Rate17/min Comments: 17 O2 SAT98% Comments:98 BP Xyfognfb070oe[Hg] Comments:10 9 BP Smjuqkwru94sa[Hg] Comments:68 10-Sep-2024 06:00 Pulse87/min Comments:87 O2 SAT97% Comments:97 BP Gpmdhmvo30mh[Hg] Comments:98 BP Ihzhuunlb23qg[Hg] Comments:55 10-Sep-2024 01:03 Pulse75/min Comments:75 O2 SAT84% Comments:84 BP Jewnqdsr58am[Hg] Comments:91 BP Afcvgryxv57du[Hg] Comments:54 09-Sep-2024 23:34 Pulse75/min Comments:75 Respiratory Rate16/min Comments: 16 O2 SAT97% Comments:97 BP Lpzbygar43ch[Hg] Comments:96 BP Ivjdojsrf97zd[Hg] Comments:63 09-Sep-2024 19:31 TEMP CDJDWWH48.4c Comments:36.4 Pulse91/min Comments:91 Respiratory Rate16/min Comments: 16 O2 SAT96% Comments:96 BP Sevtgygk612lc[Hg] Comments:15 1 BP Hxvogoqak80ew[Hg] Comments:87 09-Sep-2024 17:30 Pulse92/min Comments:92 O2 SAT99% Comments:99 BP Yfermdnq174fl[Hg] Comments:10 1 BP Dzckrpihi16bk[Hg] Comments:62 09-Sep-2024 17:30 Ztvgmpozaet02.3f Comments:98.3 Respiratory Rate16/min Comments: 16 09-Sep-2024 13:15 Bvowkuhzgro80.2f Comments:98.2 Iujgg041/min Comments:103 Respiratory Rate17/min Comments: 17 O2 SAT94% Comments:94 BP Fcpxrjdx509tu[Hg] Comments:10 3 BP Vhqvzlnzc54hp[Hg] Comments:65 Oxygen delivery devices: Comment s:Room air Height5.7138817[ft_us] Comments: 5 Pxqlya43.455kg Comments:80.455 09-Sep-2024 13:15 BMI29.5kg/m2 Comments:29.5 05-Sep-2024 11:02 TEMP LVGOIKK50.7c Comments:36.7 Pulse89/min Comments:89 Respiratory Rate16/min Comments: 16 O2 SAT94% Comments:94 BP Mxrybvzn102wn[Hg] Comments:17 0 BP Wpeubgwld67ku[Hg] Comments:93 05-Sep-2024 07:21 TEMP JHAFKDH24.6c Comments:36.6 Pulse81/min Comments:81 Respiratory Rate16/min Comments: 16 O2 SAT96% Comments:96 BP Gkgscwgj181cp[Hg] Comments:15 2 BP Hejkdelcl01nt[Hg] Comments:82 05-Sep-2024 04:31 TEMP AKWPOYO59.4c Comments:36.4 Pulse74/min Comments:74 Respiratory Rate17/min Comments: 17 O2 SAT94% Comments:94 BP Baqnwhxb600yj[Hg] Comments:11 3 BP Rtugymzez22lo[Hg] Comments:70 05-Sep-2024 01:11 TEMP QSALJZC75.3c Comments:36.3 Pulse77/min Comments:77 Respiratory Rate16/min Comments: 16 O2 SAT94% Comments:94 BP Usfwciln563dy[Hg] Comments:11 6 BP Rjfsmizet19yd[Hg] Comments:54 04-Sep-2024 23:01 Pulse88/min Comments:88 Respiratory Rate13/min Comments: 13 O2 SAT97% Comments:97 BP Izasxryc013fm[Hg] Comments:14 6 BP Ujpovrvbo05ya[Hg] Comments:77 04-Sep-2024 21:45 Pulse83/min Comments:83 04-Sep-2024 20:15 Pulse84/min Comments:84 O2 SAT95% Comments:95 04-Sep-2024 20:00 Pulse83/min Comments:83 BP Ozlhwflt548if[Hg] Comments:12 5 BP Vxvajkpar23kl[Hg] Comments:65 04-Sep-2024 19:40 Pulse84/min Comments:84 O2 SAT95% Comments:95 04-Sep-2024 19:05 Pulse87/min Comments:87 O2 SAT97% Comments:97 04-Sep-2024 19:00 Pulse88/min Comments:88 BP Zftbykvs208zd[Hg] Comments:12 8 BP Tmqplzqga61ps[Hg] Comments:63 04-Sep-2024 18:00 Pulse90/min Comments:90 BP Entarlnv349ne[Hg] Comments:10 9 BP Npapomhwf09cb[Hg] Comments:59 04-Sep-2024 17:25 Pulse93/min Comments:93 O2 SAT94% Comments:94 04-Sep-2024 17:23 BP Zpivlzmm487cn[Hg] Comments:12 5 BP Alkndyoni99cp[Hg] Comments:64 04-Sep-2024 17:00 Pulse98/min Comments:98 O2 SAT97% Comments:97 BP Nadhxzwb218qf[Hg] Comments:11 9 BP Dvxmzdhhq72bh[Hg] Comments:71 04-Sep-2024 16:45 Pulse93/min Comments:93 Respiratory Rate16/min Comments: 16 O2 SAT98% Comments:98 04-Sep-2024 16:30 Pulse97/min Comments:97 O2 SAT99% Comments:99 04-Sep-2024 16:28 BP Dmhiqixz774mm[Hg] Comments:10 9 BP Htouvhpjc90jv[Hg] Comments:56 04-Sep-2024 16:11 Zrcmpwqywef77.2f Comments:98.2 Pulse93/min Comments:93 Respiratory Rate18/min Comments: 18 O2 SAT97% Comments:97 BP Wnknmrpc424vx[Hg] Comments:10 4 BP Ewcbrcsbi40kj[Hg] Comments:55 Oxygen delivery devices: Comment s:Room air Height5.5358688[ft_us] Comments: 5 Eukzwp74.7kg Comments:80.700 04-Sep-2024 16:11 BMI29.6kg/m2 Comments:29.6 30-Aug-2024 03:00 Pulse83/min Comments:83 Respiratory Rate22/min Comments: 22 O2 SAT96% Comments:96 BP Zpmivqxk472vk[Hg] Comments:12 1 BP Bzribhvcs52di[Hg] Comments:72 30-Aug-2024 02:25 Pulse86/min Comments:86 O2 SAT98% Comments:98 30-Aug-2024 02:24 BP Rnmcdgsb002cj[Hg] Comments:14 6 BP Ugsawzfej14os[Hg] Comments:81 30-Aug-2024 02:20 Brsxswcblql98.2f Comments:98.2 Pulse84/min Comments:84 Respiratory Rate19/min Comments: 19 O2 FPY849% Comments:100 BP Jnbnpurg688ct[Hg] Comments:14 6 BP Hmevlmfyn14ke[Hg] Comments:81 Height5.3258617[ft_us] Comments: 5 Meomwu96.4kg Comments:86.400 30-Aug-2024 02:20 BMI31.6kg/m2 Comments:31.6 29-Aug-2024 12:09 TEMP ZRFBIEI71.7c Comments:36.7 Pulse83/min Comments:83 Respiratory Rate16/min Comments: 16 O2 SAT97% Comments:97 BP Akatmxom682je[Hg] Comments:16 7 BP Zvhgcqowm00yi[Hg] Comments:88 29-Aug-2024 09:54 Pulse78/min Comments:78 Respiratory Rate16/min Comments: 16 O2 SAT97% Comments:97 BP Xuokqevj480xy[Hg] Comments:11 6 BP Vngvaxepy23ue[Hg] Comments:54 29-Aug-2024 07:09 TEMP EAAYPKN59.7c Comments:36.7 Pulse75/min Comments:75 Respiratory Rate16/min Comments: 16 O2 SAT97% Comments:97 BP Vhzdejas199nq[Hg] Comments:14 2 BP Jadjplctj76es[Hg] Comments:81 29-Aug-2024 06:49 O2 SAT97% Comments:97 Inhaled oxygen ewyhkubplutlb20% Comments:21 Oxygen delivery devices: Comment s:Room air 29-Aug-2024 05:48 TEMP YFRSVVS75.8c Comments:36.8 Pulse75/min Comments:75 Respiratory Rate14/min Comments: 14 O2 SAT97% Comments:97 BP Tkjsmflz978tn[Hg] Comments:13 1 BP Mbvovicyh62fn[Hg] Comments:73 29-Aug-2024 TEMP QCUDHQU44.7c Comments:36.7 Pulse76/min Comments:76 Respiratory Rate16/min Comments: 16 O2 SAT98% Comments:98 BP Fotjmrke203lo[Hg] Comments:15 9 BP Iqzflrafr90va[Hg] Comments:87 28-Aug-2024 20:36 TEMP ZFFDMKD84.6c Comments:36.6 Pulse67/min Comments:67 Respiratory Rate18/min Comments: 18 O2 SAT97% Comments:97 BP Jcqtnjuz425pj[Hg] Comments:12 3 BP Dkflanpfi57un[Hg] Comments:67 28-Aug-2024 15:33 TEMP BPXEFCD13.3c Comments:36.3 Pulse65/min Comments:65 Respiratory Rate14/min Comments: 14 O2 SAT97% Comments:97 BP Zcvaokio301aa[Hg] Comments:10 4 BP Oivvjtrul92an[Hg] Comments:66 28-Aug-2024 11:33 TEMP NKXTSGC85.9c Comments:36.9 Pulse80/min Comments:80 Respiratory Rate14/min Comments: 14 O2 SAT96% Comments:96 BP Ayptbtox512my[Hg] Comments:10 7 BP Zgwysxhnf48rr[Hg] Comments:64 28-Aug-2024 10:59 Pulse83/min Comments:83 BP Oaoxdmjh37pd[Hg] Comments:99 BP Dxxcclvhn57ql[Hg] Comments:59 28-Aug-2024 10:37 TEMP PVBYIBL49.4c Comments:36.4 Pulse77/min Comments:77 Respiratory Rate14/min Comments: 14 O2 SAT96% Comments:96 BP Raedeqmf21sl[Hg] Comments:79 BP Sotylcouf87jp[Hg] Comments:40 28-Aug-2024 07:26 O2 SAT98% Comments:98 Oxygen delivery devices: Comment s:Room air 28-Aug-2024 07:19 TEMP YLDJFXT69.1c Comments:37.1 Chrmb849/min Comments:107 Respiratory Rate14/min Comments: 14 O2 SAT95% Comments:95 BP Sduicuve264be[Hg] Comments:19 7 BP Lqfbxglvh078zu[Hg] Comments:1 30 28-Aug-2024 05:54 TEMP TJVBBWO96.7c Comments:36.7 Lwsxh003/min Comments:100 Respiratory Rate16/min Comments: 16 O2 SAT96% Comments:96 BP Vledlzbx205tu[Hg] Comments:18 4 BP Afhkfijwh606dd[Hg] Comments:1 19 27-Aug-2024 23:42 TEMP RWHLSEH32.3c Comments:36.3 Pulse92/min Comments:92 Respiratory Rate16/min Comments: 16 O2 SAT97% Comments:97 BP Biphgmdj056go[Hg] Comments:17 9 BP Rwiwliuwd07zy[Hg] Comments:98 Icuaed40.4kg Comments:81.400 27-Aug-2024 23:42 BMI29.8kg/m2 Comments:29.8 27-Aug-2024 19:38 TEMP FADJRNX02.6c Comments:36.6 Nqbzy031/min Comments:102 Respiratory Rate16/min Comments: 16 O2 SAT97% Comments:97 BP Euiwjsdt756tg[Hg] Comments:15 4 BP Rbloqbrmy66sd[Hg] Comments:95 27-Aug-2024 15:10 TEMP RCZSRKQ34.6c Comments:36.6 Pulse99/min Comments:99 Respiratory Rate17/min Comments: 17 O2 SAT97% Comments:97 BP Ttkfnlhs318hw[Hg] Comments:16 1 BP Amtgmdhzo72ri[Hg] Comments:89 27-Aug-2024 07:41 TEMP GEHNJQL15.5c Comments:36.5 Pulse86/min Comments:86 Respiratory Rate18/min Comments: 18 O2 SAT97% Comments:97 BP Fpszydhe091qt[Hg] Comments:14 6 BP Vbxxkyxtt27ob[Hg] Comments:83 27-Aug-2024 03:57 TEMP CCTGPJK54.6c Comments:36.6 Pulse82/min Comments:82 Respiratory Rate17/min Comments: 17 O2 SAT95% Comments:95 BP Wbcrgksm706sj[Hg] Comments:13 7 BP Cavwyflrg12em[Hg] Comments:85 26-Aug-2024 23:22 TEMP JMMKUTE43.4c Comments:36.4 Pulse89/min Comments:89 Respiratory Rate17/min Comments: 17 O2 SAT97% Comments:97 BP Njxduvqb236gv[Hg] Comments:13 0 BP Biwlwadup44bh[Hg] Comments:76 Yiebqy65.04kg Comments:83.040 26-Aug-2024 19:38 TEMP BVDKLUQ42.8c Comments:36.8 Pulse82/min Comments:82 Respiratory Rate17/min Comments: 17 O2 SAT96% Comments:96 BP Yoajabrx029oi[Hg] Comments:13 2 BP Laahotflg57fa[Hg] Comments:71 26-Aug-2024 16:01 TEMP BFFURSL03.7c Comments:36.7 Pulse84/min Comments:84 Respiratory Rate18/min Comments: 18 O2 SAT93% Comments:93 BP Nsryosdr623sr[Hg] Comments:13 5 BP Mcivgjffu08il[Hg] Comments:70 26-Aug-2024 11:02 TEMP GRPOBRK42.5c Comments:36.5 Pulse91/min Comments:91 Respiratory Rate18/min Comments: 18 O2 SAT95% Comments:95 BP Ozehlkcc275ja[Hg] Comments:13 5 BP Nsdfcvkfz16ws[Hg] Comments:72 26-Aug-2024 08:32 TEMP IIOPCZH12.8c Comments:36.8 Pulse92/min Comments:92 Respiratory Rate20/min Comments: 20 O2 SAT93% Comments:93 BP Xvbotzrz142ks[Hg] Comments:13 7 BP Mubgfwxcc26ow[Hg] Comments:72 26-Aug-2024 01:10 Respiratory Rate17/min Comments: 17 26-Aug-2024 01:00 Pulse83/min Comments:83 O2 SAT97% Comments:97 BP Demfjiig973ad[Hg] Comments:11 9 BP Hzuglikki26qg[Hg] Comments:58 26-Aug-2024 00:12 BP Uoxdykcy178vh[Hg] Comments:10 6 BP Rcsyzsysi88oy[Hg] Comments:58 26-Aug-2024 00:10 Pulse85/min Comments:85 Respiratory Rate17/min Comments: 17 O2 SAT96% Comments:96 25-Aug-2024 23:40 Pulse90/min Comments:90 Respiratory Rate12/min Comments: 12 O2 SAT97% Comments:97 25-Aug-2024 23:39 BP Qfoqggmq433wo[Hg] Comments:11 4 BP Aiybozpmc64wv[Hg] Comments:61 25-Aug-2024 23:34 Snydnmnlkkv19.9f Comments:98.9 Pulse91/min Comments:91 Respiratory Rate18/min Comments: 18 Height5.4558699[ft_us] Comments: 5 Zaicny47.727kg Comments:77.727 07-Jul-2024 16:09 Pulse78/min Comments:78 Respiratory Rate16/min Comments: 16 O2 SAT98% Comments:98 BP Rkusawqn768ra[Hg] Comments:12 7 BP Wsjzcvzvm36jm[Hg] Comments:69 Oxygen delivery devices: Comment s:Room air 07-Jul-2024 14:24 Pulse72/min Comments:72 O2 YZY998% Comments:100 BP Jrgvkavc578yz[Hg] Comments:11 6 BP Wfdtqdxyk75ca[Hg] Comments:64 07-Jul-2024 14:09 Pulse69/min Comments:69 O2 SAT93% Comments:93 BP Hwzvczbo03ee[Hg] Comments:98 BP Twphmjylg71nz[Hg] Comments:52 07-Jul-2024 11:41 Nangjalrudq91g Comments:98.0 Pulse80/min Comments:80 Respiratory Rate14/min Comments: 14 O2 SAT97% Comments:97 Height in:5in Comments:5 BP Swhqqyzq468mq[Hg] Comments:13 2 BP Rwaurbofy29in[Hg] Comments:67 Oxygen delivery devices: Comment s:Room air Height5[ft_us] Comments:5 Fqhjbl46.5kg Comments:83.500 07-Jul-2024 11:41 BMI30.6kg/m2 Comments:30.6 19-Apr-2024 01:24 Pulse83 Comments:83 Respiratory Rate19 Comments:19 O2 SAT98% Comments:98 BP Egqxwqgb330tp[Hg] Comments:10 0 BP Qktisxvnn10vi[Hg] Comments:58 18-Apr-2024 22:11 Itnnmcwpbyu98.1f Comments:98.1 Pulse94 Comments:94 Respiratory Rate18 Comments:18 O2 SAT99% Comments:99 Height in:5in Comments:5 BP Tmiwwder041vj[Hg] Comments:12 8 BP Ohlisavfu72tt[Hg] Comments:60 Height5[ft_us] Comments:5 Zcwrgk88.8kg Comments:82.800 18-Apr-2024 22:11 BMI30.4kg/m2 Comments:30.4 19-Feb-2024 11:15 Gjdknueokcu32.8c Comments:36.8 Pulse73 Comments:73 Respiratory Rate18 Comments:18 O2 SAT96% Comments:96 BP Lqggtrww724jz[Hg] Comments:12 9 BP Iqsfkplud94ln[Hg] Comments:72 19-Feb-2024 07:30 Yytzxxsgbvv57.9c Comments:36.9 Pulse71 Comments:71 Respiratory Rate18 Comments:18 O2 SAT95% Comments:95 BP Vrixvwwm230ps[Hg] Comments:14 7 BP Ckurtbdaf32gc[Hg] Comments:77 19-Feb-2024 06:43 Pulse76 Comments:76 BP Lmgiysuq626uk[Hg] Comments:12 5 BP Sugmnpukt06wn[Hg] Comments:73 19-Feb-2024 03:44 Pmqrtqkoldm99.8c Comments:36.8 Pulse66 Comments:66 Respiratory Rate18 Comments:18 O2 SAT96% Comments:96 BP Ydwekdux859kb[Hg] Comments:18 2 BP Qhksvkzfc923sf[Hg] Comments:1 16 18-Feb-2024 23:40 Xokfhhxuyez88.8c Comments:36.8 Pulse73 Comments:73 Respiratory Rate16 Comments:16 O2 SAT95% Comments:95 BP Szaygusz380tx[Hg] Comments:12 5 BP Ezkblkslq78jl[Hg] Comments:65 18-Feb-2024 19:59 Vqjnmsyfjwp80.1c Comments:37.1 Pulse70 Comments:70 Respiratory Rate18 Comments:18 O2 SAT94% Comments:94 BP Dqibcsno188fc[Hg] Comments:14 6 BP Lfdewecmj97of[Hg] Comments:75 18-Feb-2024 16:24 Lykvtpihjzh35.9c Comments:36.9 Pulse68 Comments:68 Respiratory Rate18 Comments:18 O2 SAT94% Comments:94 BP Smjhgdqs313ec[Hg] Comments:12 2 BP Ezhhpfedj00zg[Hg] Comments:70 18-Feb-2024 12:10 Height in:5in Comments:5 Height5[ft_us] Comments:5 Zgevbm903xb Comments:172 18-Feb-2024 11:11 Zzhykbadamc59j Comments:37.0 Pulse74 Comments:74 Respiratory Rate18 Comments:18 O2 SAT99% Comments:99 BP Nnupchss249wd[Hg] Comments:12 8 BP Lnustbukq99oh[Hg] Comments:69 18-Feb-2024 07:30 Sxyolnosgmm60.5c Comments:36.5 Pulse69 Comments:69 Respiratory Rate18 Comments:18 O2 SAT97% Comments:97 BP Pvvvugfm197xj[Hg] Comments:17 3 BP Knucwmfog19hi[Hg] Comments:80 18-Feb-2024 03:22 Wywibemedtj44.6c Comments:36.6 Pulse64 Comments:64 Respiratory Rate18 Comments:18 O2 IOX458% Comments:100 BP Xehlnxxb457gx[Hg] Comments:14 3 BP Djcawrwtg63js[Hg] Comments:82 17-Feb-2024 23:00 Dewlybnvhlq33.7c Comments:36.7 Kirpy216 Comments:111 Respiratory Rate18 Comments:18 O2 SAT97% Comments:97 BP Hrmkkwst717ud[Hg] Comments:14 2 BP Ujvqosjpm66xr[Hg] Comments:75 17-Feb-2024 19:15 Ystkfvintzz27.1c Comments:37.1 Pulse70 Comments:70 Respiratory Rate17 Comments:17 O2 SAT97% Comments:97 BP Rclkship452fu[Hg] Comments:13 4 BP Vguxpixur12ir[Hg] Comments:73 17-Feb-2024 15:54 Fbubeyjgtdw19p Comments:37.0 Pulse84 Comments:84 Respiratory Rate18 Comments:18 O2 SAT95% Comments:95 BP Xablxkgd714nr[Hg] Comments:12 5 BP Tqkopztcs43jn[Hg] Comments:76 17-Feb-2024 11:33 Zgxqspzlakf12g Comments:37.0 Pulse70 Comments:70 Respiratory Rate18 Comments:18 O2 SAT96% Comments:96 BP Vhjvkdmi401py[Hg] Comments:13 0 BP Kigyruhdd51jr[Hg] Comments:74 17-Feb-2024 07:41 Pfquraybdgl24.1c Comments:37.1 Pulse82 Comments:82 Respiratory Rate18 Comments:18 O2 SAT96% Comments:96 BP Xuoiluuh782lz[Hg] Comments:16 6 BP Ofoamsurj68ds[Hg] Comments:87 17-Feb-2024 03:53 Jbdzxzjlpfw11.6c Comments:36.6 Pulse68 Comments:68 Respiratory Rate17 Comments:17 O2 SAT97% Comments:97 BP Cvbewlcy405ik[Hg] Comments:15 6 BP Kgfyolohf05xt[Hg] Comments:80 17-Feb-2024 00:07 Pulse62 Comments:62 O2 SAT99% Comments:99 BP Delwthsv585ep[Hg] Comments:15 2 BP Muxblaric55gv[Hg] Comments:80 17-Feb-2024 00:02 Zfptvnvdjmv38e Comments:37.0 Pulse77 Comments:77 Respiratory Rate17 Comments:17 O2 SAT96% Comments:96 BP Wivagkth172xn[Hg] Comments:17 1 BP Zygnjzpgy33rc[Hg] Comments:82 16-Feb-2024 19:21 Vztcepqwbbb37.6c Comments:36.6 Pulse68 Comments:68 Respiratory Rate18 Comments:18 O2 SAT98% Comments:98 BP Chcctkta844qt[Hg] Comments:13 1 BP Slwtyddqa21sv[Hg] Comments:68 16-Feb-2024 15:49 Yzuyqzbnesn13.4c Comments:36.4 Pulse70 Comments:70 Respiratory Rate18 Comments:18 O2 SAT99% Comments:99 BP Kpfaisec766mr[Hg] Comments:10 7 BP Gdhpewuqb49jc[Hg] Comments:60 16-Feb-2024 11:40 Vbsnspcpkks59.6c Comments:36.6 Pulse70 Comments:70 Respiratory Rate16 Comments:16 O2 SAT98% Comments:98 BP Tgjvvwin400if[Hg] Comments:13 1 BP Wlggwdtqs78hv[Hg] Comments:71 16-Feb-2024 08:25 Mwkvlebaosz94.5c Comments:36.5 Pulse74 Comments:74 Respiratory Rate16 Comments:16 O2 SAT99% Comments:99 BP Kiidjrfg935vy[Hg] Comments:14 1 BP Mgdjcvjmz43ax[Hg] Comments:77 16-Feb-2024 05:19 Fevzpozqyes89.1c Comments:36.1 Pulse59 Comments:59 Respiratory Rate18 Comments:18 O2 SAT96% Comments:96 BP Pmdnphlv561kq[Hg] Comments:14 5 BP Lzoimhjox96ev[Hg] Comments:72 15-Feb-2024 21:39 Hxmictkxpzx53.7c Comments:36.7 Pulse68 Comments:68 Respiratory Rate18 Comments:18 O2 SAT99% Comments:99 BP Byxhffri109ov[Hg] Comments:13 8 BP Lfddfmdtr30hc[Hg] Comments:67 15-Feb-2024 21:00 Qbivp837 Comments:106 Respiratory Rate38 Comments:38 O2 SAT98% Comments:98 BP Bbqjifva630fx[Hg] Comments:10 8 BP Iujzzstoc04it[Hg] Comments:58 15-Feb-2024 20:00 Pulse65 Comments:65 Respiratory Rate14 Comments:14 O2 SAT98% Comments:98 BP Cjnjuxsq833sh[Hg] Comments:10 9 BP Puxqzzipw23bz[Hg] Comments:59 15-Feb-2024 19:31 Qcalztnfwux29.1f Comments:98.1 15-Feb-2024 19:30 O2 SAT98% Comments:98 15-Feb-2024 19:00 Pulse66 Comments:66 Respiratory Rate11 Comments:11 O2 SAT95% Comments:95 BP Oqhsresg063cu[Hg] Comments:10 3 BP Mufqxnlmx70ot[Hg] Comments:58 15-Feb-2024 18:00 Pulse74 Comments:74 Respiratory Rate23 Comments:23 O2 SAT98% Comments:98 BP Glwarcdb680fj[Hg] Comments:11 8 BP Fzlismbmb69am[Hg] Comments:58 15-Feb-2024 17:23 Pulse78 Comments:78 Respiratory Rate22 Comments:22 O2 SAT94% Comments:94 BP Cykxjdaf060tf[Hg] Comments:13 3 BP Epcvmzzer87yb[Hg] Comments:64 15-Feb-2024 16:30 Gzuvskoweub47.3f Comments:98.3 15-Feb-2024 15:00 Pulse72 Comments:72 Respiratory Rate13 Comments:13 O2 SAT93% Comments:93 BP Nxgbuvlk035ya[Hg] Comments:13 4 BP Mdqsyfdkd80ar[Hg] Comments:63 15-Feb-2024 14:00 Pulse81 Comments:81 Respiratory Rate24 Comments:24 O2 SAT97% Comments:97 BP Oelgbppl808ih[Hg] Comments:10 2 BP Ymjrmdwpy06zc[Hg] Comments:57 15-Feb-2024 13:00 Pulse85 Comments:85 Respiratory Rate18 Comments:18 O2 SAT96% Comments:96 BP Uxkxahwl00cs[Hg] Comments:98 BP Mbqocditd78qw[Hg] Comments:67 15-Feb-2024 12:00 Pulse72 Comments:72 Respiratory Rate15 Comments:15 O2 SAT97% Comments:97 BP Rhzrlivu766rj[Hg] Comments:14 6 BP Pxciypjxu29kf[Hg] Comments:69 15-Feb-2024 11:31 Bytlzyjvyno57.8f Comments:97.8 15-Feb-2024 11:00 Pulse70 Comments:70 Respiratory Rate13 Comments:13 O2 SAT91% Comments:91 BP Ucwnvxbi633eo[Hg] Comments:12 9 BP Nqyigpvst99wg[Hg] Comments:61 15-Feb-2024 10:01 Pulse67 Comments:67 Respiratory Rate9 Comments:9 O2 SAT95% Comments:95 BP Ypgwootj56sv[Hg] Comments:94 BP Iqcnpixws70du[Hg] Comments:51 15-Feb-2024 09:45 O2 SAT98% Comments:98 15-Feb-2024 09:03 Pulse86 Comments:86 Respiratory Rate16 Comments:16 O2 SAT97% Comments:97 BP Lmvhlcfo082tm[Hg] Comments:14 1 BP Jwrswkcft96fn[Hg] Comments:68 15-Feb-2024 08:00 Pulse80 Comments:80 O2 SAT96% Comments:96 BP Nnkifvsk277er[Hg] Comments:11 2 BP Booskorqn23mh[Hg] Comments:87 15-Feb-2024 07:04 Ymffphrksik31.2f Comments:98.2 15-Feb-2024 07:00 Pulse86 Comments:86 Respiratory Rate18 Comments:18 O2 SAT94% Comments:94 BP Gdfmwwgy499gu[Hg] Comments:10 8 BP Dforejndv48bd[Hg] Comments:59 15-Feb-2024 06:30 Pulse78 Comments:78 Respiratory Rate11 Comments:11 O2 SAT93% Comments:93 15-Feb-2024 05:00 Pulse81 Comments:81 Respiratory Rate33 Comments:33 O2 SAT97% Comments:97 15-Feb-2024 04:00 Okfqgfjrvgy79.9f Comments:97.9 15-Feb-2024 03:07 Pulse77 Comments:77 Respiratory Rate13 Comments:13 O2 SAT95% Comments:95 BP Ccljjxud510lf[Hg] Comments:14 3 BP Aihdxvbht24pu[Hg] Comments:71 15-Feb-2024 02:00 Pulse79 Comments:79 Respiratory Rate13 Comments:13 O2 SAT95% Comments:95 BP Fbbleaut538za[Hg] Comments:10 5 BP Heajqunxp38kb[Hg] Comments:53 15-Feb-2024 01:01 Pulse83 Comments:83 Respiratory Rate14 Comments:14 O2 SAT98% Comments:98 BP Foczraay964ei[Hg] Comments:10 6 BP Ftkrlgxaq47ry[Hg] Comments:53 15-Feb-2024 00:01 Pulse85 Comments:85 Respiratory Rate13 Comments:13 O2 SAT96% Comments:96 BP Lvtecjks986qf[Hg] Comments:11 5 BP Vxmftsiuq35fo[Hg] Comments:50 15-Feb-2024 Ikrrwpzpbzb02a Comments:98.0 14-Feb-2024 21:00 Pulse77 Comments:77 Respiratory Rate15 Comments:15 O2 SAT95% Comments:95 BP Bwsrckbc78cl[Hg] Comments:97 BP Ahspatinp83xv[Hg] Comments:51 14-Feb-2024 20:01 Pulse87 Comments:87 Respiratory Rate21 Comments:21 O2 SAT97% Comments:97 BP Jnenxvtn874af[Hg] Comments:11 8 BP Fizovsmcv31oj[Hg] Comments:56 14-Feb-2024 20:00 Graanigeynu93.2f Comments:98.2 14-Feb-2024 19:01 Pulse92 Comments:92 Respiratory Rate20 Comments:20 O2 SAT97% Comments:97 BP Mhvvylus785lx[Hg] Comments:13 0 BP Viuyyvjtp43jy[Hg] Comments:61 14-Feb-2024 18:50 O2 SAT98% Comments:98 14-Feb-2024 17:00 Pulse87 Comments:87 Respiratory Rate13 Comments:13 O2 SAT94% Comments:94 BP Sijckmkj783tp[Hg] Comments:10 4 BP Geyzjzxbz57ur[Hg] Comments:66 14-Feb-2024 16:03 Pulse88 Comments:88 Respiratory Rate16 Comments:16 O2 SAT95% Comments:95 BP Lnjqssdc833gy[Hg] Comments:11 5 BP Ldlwoebmn71zt[Hg] Comments:60 14-Feb-2024 16:00 Acxmusxzbqk78.9f Comments:97.9 14-Feb-2024 14:00 Pulse94 Comments:94 O2 SAT95% Comments:95 BP Dpcfjimm755de[Hg] Comments:10 5 BP Jnlyuzubp33rf[Hg] Comments:56 14-Feb-2024 13:00 BP Klpvirda271aa[Hg] Comments:11 8 BP Arcxvwklj32zp[Hg] Comments:86 14-Feb-2024 13:00 Czbih445 Comments:134 Respiratory Rate15 Comments:15 O2 SAT95% Comments:95 14-Feb-2024 12:12 Krvmf139 Comments:140 Respiratory Rate20 Comments:20 O2 SAT94% Comments:94 BP Flfslkgx479zq[Hg] Comments:11 5 BP Opulslrgn48lu[Hg] Comments:69 14-Feb-2024 12:00 Vtjgtaodgvm47.1f Comments:98.1 14-Feb-2024 11:32 Ipdfitcftwn35.1f Comments:98.1 14-Feb-2024 11:00 Uauaa078 Comments:135 O2 SAT94% Comments:94 BP Gwqtzkii546ev[Hg] Comments:12 3 BP Tduwgxkul20uj[Hg] Comments:66 14-Feb-2024 10:01 Rnvlw024 Comments:141 Respiratory Rate20 Comments:20 O2 SAT95% Comments:95 BP Kxgvwntq983zw[Hg] Comments:12 4 BP Ylzehyxkx53yu[Hg] Comments:72 14-Feb-2024 09:00 Lshma407 Comments:107 Respiratory Rate20 Comments:20 O2 SAT93% Comments:93 BP Whmozibw709dk[Hg] Comments:10 6 BP Dhwarxvgv38nx[Hg] Comments:65 14-Feb-2024 08:19 Zlfzlsdiwnz14.8f Comments:97.8 14-Feb-2024 08:01 Msuao266 Comments:115 Respiratory Rate16 Comments:16 O2 SAT95% Comments:95 BP Zerrrtbu777ni[Hg] Comments:12 3 BP Fkkyrhhgd77to[Hg] Comments:56 14-Feb-2024 08:00 Uoeljfoefqz61.1f Comments:98.1 14-Feb-2024 07:00 Coycu209 Comments:103 Respiratory Rate16 Comments:16 O2 SAT95% Comments:95 BP Grtewtsa941vj[Hg] Comments:17 2 BP Fxhulpdvq06ct[Hg] Comments:91 14-Feb-2024 06:00 Ovqcu587 Comments:100 Respiratory Rate26 Comments:26 O2 SAT93% Comments:93 BP Fgmjvtsw677qx[Hg] Comments:17 0 BP Heaaiiqzn82xt[Hg] Comments:79 14-Feb-2024 05:44 Xrbmjscwfkk38.8f Comments:97.8 14-Feb-2024 05:07 Ycvzk650 Comments:100 Respiratory Rate20 Comments:20 O2 SAT96% Comments:96 BP Gjshrvyf476pz[Hg] Comments:15 5 BP Nuhorisun99fy[Hg] Comments:77 14-Feb-2024 04:00 Pulse71 Comments:71 Respiratory Rate14 Comments:14 O2 SAT97% Comments:97 BP Igeruaxa075ld[Hg] Comments:10 5 BP Rhcqcyayq97qb[Hg] Comments:59 14-Feb-2024 03:00 Ssqnd354 Comments:143 Respiratory Rate19 Comments:19 O2 SAT96% Comments:96 BP Ymedctdw568qe[Hg] Comments:16 4 BP Ebltjbfpx745rq[Hg] Comments:1 00 14-Feb-2024 02:00 Gflqk297 Comments:137 Respiratory Rate38 Comments:38 O2 SAT92% Comments:92 BP Gahuplhs733mu[Hg] Comments:15 5 BP Wwcdkpwrv90mi[Hg] Comments:96 14-Feb-2024 01:00 Aktjn473 Comments:134 Respiratory Rate14 Comments:14 O2 SAT87% Comments:87 BP Xasrtlqi913hg[Hg] Comments:12 8 BP Ocuzkdrwr36uj[Hg] Comments:76 14-Feb-2024 00:23 Ynfnj738 Comments:109 Respiratory Rate28 Comments:28 O2 SAT96% Comments:96 14-Feb-2024 O2 SAT95% Comments:95 BP Oeppkalz411xu[Hg] Comments:12 8 BP Qhxpyxjyr61ic[Hg] Comments:81 13-Feb-2024 23:34 Ungkfinlzqk24.3f Comments:98.3 13-Feb-2024 23:34 Onhkadbukve22.3f Comments:98.3 13-Feb-2024 23:00 Pulse98 Comments:98 Respiratory Rate20 Comments:20 O2 SAT94% Comments:94 BP Bqpcjnhb282ne[Hg] Comments:14 7 BP Notdztypx08yv[Hg] Comments:77 13-Feb-2024 22:30 Frdzy357 Comments:106 Respiratory Rate22 Comments:22 O2 SAT93% Comments:93 BP Hjbvlhxv163zk[Hg] Comments:16 3 BP Iaofgizxx19aw[Hg] Comments:89 13-Feb-2024 21:00 Cizpb637 Comments:100 Respiratory Rate22 Comments:22 O2 SAT94% Comments:94 BP Yrakavfc768ir[Hg] Comments:14 4 BP Uhbgqqwii66dm[Hg] Comments:76 13-Feb-2024 20:21 Ssjlvaqsabk97.4f Comments:98.4 13-Feb-2024 20:00 Pulse96 Comments:96 Respiratory Rate16 Comments:16 O2 SAT94% Comments:94 BP Besvpolu252cd[Hg] Comments:14 2 BP Joqmksgnf46xb[Hg] Comments:76 13-Feb-2024 19:00 Dyiyz158 Comments:102 Respiratory Rate18 Comments:18 O2 SAT94% Comments:94 BP Wootrnyq291xu[Hg] Comments:13 4 BP Ezfwbcgzy49zl[Hg] Comments:88 13-Feb-2024 16:39 Nnrdcloxjcz82.3f Comments:98.3 13-Feb-2024 14:00 Gvrfw097 Comments:104 Respiratory Rate17 Comments:17 O2 SAT89% Comments:89 BP Rqedutjb013yq[Hg] Comments:16 6 BP Bnkrgivru31vc[Hg] Comments:78 13-Feb-2024 13:00 Pulse93 Comments:93 Respiratory Rate18 Comments:18 O2 SAT95% Comments:95 BP Sfxadqww959yx[Hg] Comments:14 0 BP Jjuwjmqsq69zi[Hg] Comments:70 13-Feb-2024 12:14 Ycnnczrjlip41.1f Comments:98.1 13-Feb-2024 12:01 O2 SAT97% Comments:97 BP Nixldkxo336wb[Hg] Comments:13 6 BP Foswdkiwp18rk[Hg] Comments:70 13-Feb-2024 11:00 Pulse99 Comments:99 Respiratory Rate15 Comments:15 O2 SAT96% Comments:96 BP Kfgorouj325az[Hg] Comments:10 7 BP Igncrmorq59xa[Hg] Comments:57 13-Feb-2024 10:00 Pulse90 Comments:90 Respiratory Rate23 Comments:23 O2 SAT96% Comments:96 BP Fmjuzxcy151lr[Hg] Comments:11 5 BP Dasjblwnu98qn[Hg] Comments:56 13-Feb-2024 09:54 Pulse89 Comments:89 Respiratory Rate11 Comments:11 O2 SAT96% Comments:96 BP Ruqakrti988ch[Hg] Comments:12 6 BP Fuibtgjql70gk[Hg] Comments:64 13-Feb-2024 09:02 Pulse94 Comments:94 O2 SAT83% Comments:83 BP Jiggontk106ha[Hg] Comments:16 0 BP Tvjhhmjcx87zy[Hg] Comments:69 13-Feb-2024 08:08 Kpgnpkeomtr22.3f Comments:98.3 13-Feb-2024 08:00 Pulse91 Comments:91 Respiratory Rate6 Comments:6 O2 SAT91% Comments:91 BP Tdwikcaz159pl[Hg] Comments:11 1 BP Kfcojauyf37dw[Hg] Comments:57 13-Feb-2024 07:57 Pulse83 Comments:83 Respiratory Rate0 Comments:0 O2 SAT92% Comments:92 BP Vrfngtzv958kk[Hg] Comments:12 2 BP Udshfnmdq76er[Hg] Comments:58 13-Feb-2024 07:01 Pulse92 Comments:92 O2 SAT92% Comments:92 BP Kmodfdki770cg[Hg] Comments:16 1 BP Tnqvhkbaf99yd[Hg] Comments:83 13-Feb-2024 07:00 Pulse95 Comments:95 Respiratory Rate33 Comments:33 O2 SAT90% Comments:90 13-Feb-2024 06:00 O2 SAT90% Comments:90 BP Gikotlbg826af[Hg] Comments:12 1 BP Ubhxxxzhd88yl[Hg] Comments:61 13-Feb-2024 05:30 Pulse87 Comments:87 Respiratory Rate12 Comments:12 O2 SAT95% Comments:95 13-Feb-2024 05:09 Pulse87 Comments:87 Respiratory Rate11 Comments:11 O2 SAT95% Comments:95 BP Xpfsrywc649dd[Hg] Comments:13 8 BP Yyzzfaqpb44bg[Hg] Comments:67 13-Feb-2024 04:43 Bxxlxzoxkcr00.7f Comments:98.7 13-Feb-2024 04:33 Pulse89 Comments:89 Respiratory Rate19 Comments:19 O2 SAT96% Comments:96 BP Mvrgngza970wq[Hg] Comments:18 1 BP Buozuorfp54ec[Hg] Comments:96 13-Feb-2024 04:00 Pulse85 Comments:85 Respiratory Rate24 Comments:24 O2 SAT96% Comments:96 BP Lwqzzbat226zt[Hg] Comments:17 3 BP Swlyozckk24qz[Hg] Comments:86 13-Feb-2024 03:01 Pulse83 Comments:83 Respiratory Rate17 Comments:17 O2 SAT96% Comments:96 BP Wawzarox594os[Hg] Comments:15 4 BP Nrtjbefue66ds[Hg] Comments:89 13-Feb-2024 02:08 Height in:5in Comments:5 Height5[ft_us] Comments:5 Bxyjle49.3kg Comments:78.300 13-Feb-2024 02:08 BMI28.7kg/m2 Comments:28.7 13-Feb-2024 02:00 Pulse81 Comments:81 Respiratory Rate33 Comments:33 O2 SAT96% Comments:96 BP Dgtcrwsa213kd[Hg] Comments:14 1 BP Nwmiqeycx50vx[Hg] Comments:75 13-Feb-2024 01:00 Pulse76 Comments:76 Respiratory Rate15 Comments:15 O2 SAT97% Comments:97 BP Zhbtfpsv049mg[Hg] Comments:15 5 BP Gsxyxlpdy98rq[Hg] Comments:80 13-Feb-2024 00:45 Zhkjxezbodt17.3f Comments:98.3 13-Feb-2024 00:11 Pulse85 Comments:85 Respiratory Rate23 Comments:23 O2 SAT98% Comments:98 BP Plgkadeq122eq[Hg] Comments:14 8 BP Olfckixjy49uf[Hg] Comments:70 12-Feb-2024 23:00 Pulse85 Comments:85 Respiratory Rate17 Comments:17 O2 SAT97% Comments:97 BP Hdhrzzok381qf[Hg] Comments:15 1 BP Srbhhqarw44jb[Hg] Comments:74 12-Feb-2024 22:06 Pulse82 Comments:82 Respiratory Rate23 Comments:23 O2 SAT98% Comments:98 BP Zwlmjwpg644zh[Hg] Comments:17 1 BP Gchfplyzz43js[Hg] Comments:83 12-Feb-2024 21:13 Dxpnhcardfh35.4f Comments:98.4 12-Feb-2024 21:00 Pulse79 Comments:79 Respiratory Rate18 Comments:18 O2 SAT96% Comments:96 BP Abiiomyr791og[Hg] Comments:15 3 BP Jvqzxydql62iz[Hg] Comments:76 12-Feb-2024 20:00 Pulse95 Comments:95 Respiratory Rate27 Comments:27 BP Cwketzyh409rs[Hg] Comments:15 0 BP Clmqfaddq45kd[Hg] Comments:81 12-Feb-2024 19:00 Pulse84 Comments:84 Respiratory Rate19 Comments:19 O2 SAT94% Comments:94 BP Mhsflvte257zb[Hg] Comments:15 0 BP Eshlypikt95sh[Hg] Comments:85 12-Feb-2024 18:07 Pulse82 Comments:82 12-Feb-2024 18:00 Pulse84 Comments:84 Respiratory Rate25 Comments:25 O2 SAT96% Comments:96 BP Znjnijni665zw[Hg] Comments:13 2 BP Abaxgmrax56pu[Hg] Comments:76 12-Feb-2024 17:51 Pulse89 Comments:89 Respiratory Rate13 Comments:13 O2 SAT97% Comments:97 BP Esyivkrz993lq[Hg] Comments:13 7 BP Fymbgstjk96nb[Hg] Comments:75 12-Feb-2024 17:00 Pulse87 Comments:87 Respiratory Rate22 Comments:22 O2 SAT98% Comments:98 BP Pykcddgp748tm[Hg] Comments:15 8 BP Zyihcpeuz41st[Hg] Comments:91 12-Feb-2024 16:56 Abbwxwdkwyn80.2f Comments:98.2 12-Feb-2024 16:00 Pulse77 Comments:77 Respiratory Rate14 Comments:14 O2 SAT94% Comments:94 BP Qbbzzyap975bi[Hg] Comments:14 5 BP Fcskecxbd41kq[Hg] Comments:75 12-Feb-2024 15:00 Pulse92 Comments:92 Respiratory Rate29 Comments:29 O2 SAT98% Comments:98 BP Bhxovsog662bq[Hg] Comments:11 8 BP Lhnydmsec07sm[Hg] Comments:74 12-Feb-2024 14:00 Pulse74 Comments:74 Respiratory Rate15 Comments:15 O2 SAT95% Comments:95 BP Fnmbydxr854ef[Hg] Comments:11 2 BP Mnnkqfwre11nb[Hg] Comments:62 12-Feb-2024 13:00 Pulse84 Comments:84 Respiratory Rate21 Comments:21 O2 SAT95% Comments:95 BP Mvoqcdiv71qd[Hg] Comments:99 BP Jzsctjksj43ue[Hg] Comments:74 12-Feb-2024 12:17 Yjexdivgtjv78.1f Comments:98.1 12-Feb-2024 12:00 Pulse85 Comments:85 Respiratory Rate19 Comments:19 O2 SAT98% Comments:98 BP Mchpcppb355cf[Hg] Comments:11 8 BP Nqgtsnjtk61ei[Hg] Comments:72 12-Feb-2024 11:00 Pulse79 Comments:79 Respiratory Rate15 Comments:15 O2 SAT96% Comments:96 BP Mhrhhubt004pe[Hg] Comments:13 9 BP Bdfndcswp69ki[Hg] Comments:73 12-Feb-2024 10:00 Pulse92 Comments:92 Respiratory Rate13 Comments:13 O2 SAT97% Comments:97 BP Shdvhebj321ka[Hg] Comments:10 2 BP Mnleoxdmv14si[Hg] Comments:59 12-Feb-2024 09:01 Afefr927 Comments:115 Respiratory Rate31 Comments:31 O2 SAT97% Comments:97 BP Pubwpmez207ui[Hg] Comments:11 4 BP Cvwyfeltc51sv[Hg] Comments:62 12-Feb-2024 09:00 Rycpa436 Comments:110 Respiratory Rate39 Comments:39 O2 SAT99% Comments:99 12-Feb-2024 08:25 Wevrljjmqac77.2f Comments:98.2 12-Feb-2024 08:00 Pulse89 Comments:89 Respiratory Rate14 Comments:14 O2 SAT97% Comments:97 BP Ewifkyco783tf[Hg] Comments:13 5 BP Dxonruliw28qr[Hg] Comments:63 12-Feb-2024 07:00 Pulse90 Comments:90 Respiratory Rate13 Comments:13 O2 SAT96% Comments:96 BP Ernqfork631zs[Hg] Comments:12 7 BP Dcvjowyxz04wo[Hg] Comments:62 12-Feb-2024 06:00 Pulse91 Comments:91 Respiratory Rate13 Comments:13 O2 SAT97% Comments:97 BP Oyzjfvnb371om[Hg] Comments:11 4 BP Hldgkmmlq14la[Hg] Comments:63 12-Feb-2024 05:35 Kpuemtirepp90.2f Comments:98.2 12-Feb-2024 05:00 Pulse95 Comments:95 Respiratory Rate17 Comments:17 O2 SAT98% Comments:98 BP Qrcgbqxn284ls[Hg] Comments:10 9 BP Ebtcbdqbi43vl[Hg] Comments:54 12-Feb-2024 04:01 Pulse97 Comments:97 Respiratory Rate14 Comments:14 O2 SAT98% Comments:98 BP Iciozsjy995mi[Hg] Comments:13 1 BP Gfywqusnc02gl[Hg] Comments:60 12-Feb-2024 03:06 Pulse99 Comments:99 Respiratory Rate16 Comments:16 BP Axvhinqt109cq[Hg] Comments:17 4 BP Cdwxgallr66wv[Hg] Comments:85 12-Feb-2024 02:00 Pulse88 Comments:88 Respiratory Rate16 Comments:16 O2 SAT97% Comments:97 BP Koqtsyzb077jv[Hg] Comments:10 9 BP Kvarrjnkm41mc[Hg] Comments:59 12-Feb-2024 01:18 BP Boikmgrt538ze[Hg] Comments:15 3 BP Xcxnjvkrv45vo[Hg] Comments:93 12-Feb-2024 01:00 Pulse89 Comments:89 Respiratory Rate16 Comments:16 O2 SAT98% Comments:98 BP Hauldwcg372tb[Hg] Comments:19 4 BP Dlhezaxna22kg[Hg] Comments:92 12-Feb-2024 00:45 Pulse81 Comments:81 Respiratory Rate14 Comments:14 O2 SAT99% Comments:99 BP Necgrqsp587li[Hg] Comments:19 6 BP Vuuwhappg03kz[Hg] Comments:91 12-Feb-2024 00:30 Pulse90 Comments:90 Respiratory Rate14 Comments:14 O2 UTY072% Comments:100 BP Qzkdgzff620zt[Hg] Comments:16 2 BP Tarluiawu18by[Hg] Comments:97 12-Feb-2024 00:15 Pulse84 Comments:84 Respiratory Rate16 Comments:16 O2 SAT97% Comments:97 BP Mygxjbzw544vr[Hg] Comments:17 9 BP Kfvhjasgw784pq[Hg] Comments:1 07 11-Feb-2024 23:15 Pulse91 Comments:91 Respiratory Rate16 Comments:16 O2 SAT99% Comments:99 BP Ffycycpe683sm[Hg] Comments:16 7 BP Pspmcuskr01ha[Hg] Comments:87 11-Feb-2024 22:01 Pulse80 Comments:80 Respiratory Rate14 Comments:14 O2 SAT98% Comments:98 BP Zoadoojd793ul[Hg] Comments:16 3 BP Wbeylaiie78fw[Hg] Comments:96 11-Feb-2024 21:16 Pulse88 Comments:88 Respiratory Rate16 Comments:16 O2 WCJ654% Comments:100 BP Klcuxsyc462ci[Hg] Comments:13 2 BP Uikkqcerj68jb[Hg] Comments:87 11-Feb-2024 18:50 Mlluekegeiu53.4f Comments:98.4 Pulse98 Comments:98 Respiratory Rate16 Comments:16 O2 APZ035% Comments:100 Height in:5in Comments:5 BP Rymdnyiv703pf[Hg] Comments:12 0 BP Cftyynfhc89qq[Hg] Comments:64 Height5[ft_us] Comments:5 Cjvqme47.3kg Comments:78.300 10-Feb-2024 12:57 O2 SAT99% Comments:99 10-Feb-2024 12:48 Fbnqzyestud64.4f Comments:98.4 Pulse94 Comments:94 Respiratory Rate18 Comments:18 O2 SAT99% Comments:99 Height in:5in Comments:5 BP Vyvqquia238kg[Hg] Comments:13 0 BP Zknporjvu22rg[Hg] Comments:82 Height5[ft_us] Comments:5 Egdwkf01.6kg Comments:75.600 10-Feb-2024 12:48 BMI27.7kg/m2 Comments:27.7 21-Jan-2024 17:31 Pulse83 Comments:83 Respiratory Rate15 Comments:15 O2 SAT98% Comments:98 BP Srfuiypk152uv[Hg] Comments:14 2 BP Ejotolgyj69cr[Hg] Comments:74 21-Jan-2024 15:13 Azytoodchyi57.4f Comments:98.4 Kqlsi281 Comments:109 Respiratory Rate20 Comments:20 O2 SAT99% Comments:99 Height in:5in Comments:5 BP Yjqqbkdy288wj[Hg] Comments:15 7 BP Fymvtgzca67ez[Hg] Comments:83 Height5[ft_us] Comments:5 Bnyqwz95.909kg Comments:75.909 21-Jan-2024 15:13 BMI27.8kg/m2 Comments:27.8 10-Nov-2013 Pulse89 Respiratory Rate18 Encounters Inpatient encounter Encounter Reason:DONT FEEL WELL Encounter Diagnosis:Chest pain, unspecified,897,Acute ischemic heart disease, unspecified,Alcoholic gastritis without bleeding,Alcohol dependence with withdrawal, unspecified,Type 2 diabetes mellitus with diabetic polyneuropathy,Type 2 diabetes mellitus with other specified complication,Nicotine dependence, unspecified, uncomplicated,Epilepsy, unspecified, not intractable, without status epilepticus,Other chronic pain,Hypertensive heart disease with heart failure,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,Paroxysmal atrial fibrillation,Heart failure, unspecified,Blood alcohol level of 240 mg/100 ml or more,USP (current) use of anticoagulants,USP (current) use of antithrombotics/antiplatelets,Personal history of transient ischemic attack (TIA), and cerebral infarction without residual deficits,Presence of aortocoronary bypass graft,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,Alcohol dependence with intoxication, unspecified 11-Sep-2024 05:[id number] 11:01 [facility] Disposition:Discharged to home or self care (routine discharge) MANAGEMENT [id number] [facility] [address] [place] [address] Case Management Report CONFIDENTIAL PATIENT INFORMATION ENCOUNTER DATA Patient Name: RAMAN BERNAL : 63Account #: [id number] Date: 09/11/24 AGE: 59Attending Physician: Yasmine Cobb MD ROOM: [address] ----- --HCM SUPPORT SERVICES ----- ---HCM Support Services User Bowman: Date Entered: 09/12/2024Service Type: Important Message from Medicare - IMCase Worker: [place] [id number] Date: 09/16/2024Payer: UNITED MEDICARE WELLMEDComments:--- 09/12/2024 10:05 AM by Kaushal Guerrero ---spoke to pt obtained imm and signed electronically Date Entered: 09/11/2024Service Type: *Care CoordinationCase Worker: [place] [id number] Date: 09/12/2024Payer: UNITED MEDICARE Poppermost ProductionsMEDComments:--- 09/11/2024 11:52 AM by Bita Martinez ---CM spoke with patient to complete initial assessment.CM role explained.Patient is: alert and oriented.Patient s primary contact is: mother Carol [phone] decision maker in case of emergency:Pt does not have adv dir/living will.Face sheet demographics reviewed/verified;Patient resides with: alone. [place] and stays with his brotherPatient has the following DME: none.Patient Name: RAMAN BERNAL is currently active with: noneHHC/SNF preference: nonePrior to hospitalization was: independent with adls.Pt is able to obtain medications outpatient.Planned discharge transportation discussed with the patient. drove self.Current Discharge Plan: Elizas patient has been screened by case management for any potential dischargeneeds.At this time, no discharge needs identified. ----- ------HCM DISCHARGE PLANNING ----- ---HCM Discharge Planning Comments: ----- ----HCM DISCHARGE PLANNING EVALUATION ----- -----Case Workers: Mariya Martinez Status: AloneSetting: Home-residenceADL Limits: None or n/aDME: NoneHCM Discharge Planning User Bowman:Community Services Prior to Admission: None or NACurrent Mental Status/Cognition: Alert and OrientedInformation obtained from: PatientDischarge Barriers, select all that apply: None or NAReadmission (unplanned) in the last 30 days: NoPatient goals and preferences after discharge: homeBased on information gathered, is it likely that the patient's care needs canbe met in the environment from which he/she entered the hospital?: YesProposed Discharge Plan, select one: HomeIf a caregiver is needed, is there a caregiver available, willing and capableto provide care?: YesCommunity services needed: NonePatient Name: RAMAN BERNAL DME required at discharge: None or Mauricio new DME is required, is patient able to obtain DME?: YesHome Modifications required: None or Mauricio home modifications are required, is patient able to obtain them?: YesPatient concerns about obtaining medications on day of discharge?: NoneTransportation needs at discharge: drove selfDischarge Plan Discussed with: PatientHave you discussed with the patient how his/her care needs may change overtime?: YesPatient/manufacturer representative agrees with discharge plan: YesDiscussed expected insurance coverage and/or out of pocket expenses: NoDate / Time: 09/11/2024 10:00 AMEvaluated by: Bita Martinez ===== =========Updated by: Arabella Flores () - 09/16/2024 10:15 AM ==Pat ient Name: RAMAN BERNAL Inpatient encounter Encounter Reason:ETOH WITH BODY PAIN Encounter Diagnosis:897,Other chest pain,Type 2 diabetes mellitus with diabetic neuropathy, unspecified,Type 2 diabetes mellitus with hyperglycemia,Nicotine dependence, unspecified, uncomplicated,Gastritis, unspecified, without bleeding,Epilepsy, unspecified, not intractable, without status epilepticus,Essential (primary) hypertension,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,Old myocardial infarction,Paroxysmal atrial fibrillation,Blood alcohol level of 240 mg/100 ml or more,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,USP (current) use of antithrombotics/antiplatelets,USP (current) use of oral hypoglycemic drugs,Personal history of transient ischemic attack (TIA), and cerebral infarction without residual deficits,Presence of aortocoronary bypass graft,Alcohol dependence with intoxication, unspecified 09-Sep-2024 18:[id number] 15:38 [facility] Disposition:Discharged to home or self care (routine discharge) Jacky Jimenez MD-10-Sep-2024 Activity Ambulate in roomActivity Bathroom privilegesActivity BedrestActivity: As TolerActivity: Resume nrm Inpatient encounter Encounter Reason:CP X FEW MONTHS, IVETH BLOOD SUGAR Encounter Diagnosis:Fracture of one rib, right side, initial encounter for closed fracture,Type 2 diabetes mellitus with hyperglycemia,Fatty (change of) liver, not elsewhere classified,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,Essential (primary) hypertension,Insomnia, unspecified,Type 2 diabetes mellitus with diabetic neuropathy, unspecified,Type 2 diabetes mellitus with other specified complication,Osteomyelitis, unspecified,Hypokalemia,Alcohol dependence, uncomplicated,Nicotine dependence, cigarettes, uncomplicated,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,USP (current) use of oral hypoglycemic drugs,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,Personal history of transient ischemic attack (TIA), and cerebral infarction without residual deficits,Presence of aortocoronary bypass graft,Exposure to other specified factors, initial encounter,Other chest pain 04-Sep-2024 16:[id number] 12:49 [facility] Disposition:Discharged to home or self care (routine discharge) Gilbert Parsons MD-05-Sep-2024 [facility] ([facility])Discharge SummaryREPORT#:[id number] REPORT STATUS: SignedDATE:09/05/24 TIME: 1332PATIENT: RAMAN BERNAL UNIT #: [id number]#: [id number] [facility]: [birth year][facility]AGE: 59 SEX: M ATTEND: Yasmine Cobb MDADM AUTHOR: John Hunt MD R1REP SRV REP SRV TM: 1332* ALL edits or amendments must be made on the electronic/computer document *John Fraire 09/05/24 1332:General InformationDate of admission:Observation Start Date: 09/04/24Date of admission: 09/04/24Discharge date: 09/05/24Discharge diagnosis:Noncardiac chest pain, stableType 2 diabetes mellitus, uncontrolledTransaminitisChronic alcohol use dependenceCoronary artery disease with CABG in 12/10Lateral right 7th rib fracture, stableHistory of seizure and stroke, under treatmentEssential hypertension, under treatmentInsomnia, under treatmentHospital course:This is a 59-year-old male with past medical history of coronary artery diseaseand CABG in 2023, alcohol use disorder, diabetes mellitus type 2 with neuropathy, history of stroke and seizure on Keppra who presents due to the ED with chiefcomplaint of chest pain. Patient states that since his CABG in 12/10 he has beenhaving constant chest pain which is progressively worsened located towards midsternal region, nonradiating, rated 8/10 in severity, described it as sharp/sorepain, aggravated with cough, no alleviating factors. Patient was recentlydischarged from the hospital on 09/28/2024 after undergoing cardiaccatheterization which showed no significant stenosis and did not require anystents. Patient was discharged with instructions to follow-up with PCP in 1-2weeks.Patient stated that he had his PCP had recommended him to see a pain managementdoctor however patient has no followed up. We recommend he find a painmanagement doctor that takes his insurance for further pain management.Noncardiac chest pain-Etiology likely musculoskeletal-MAINOR 3, heart 4-Tropes negative x2, BNP 38.6-EKG: Normal sinus rhythm, HR 86, Q-wave in inferior leads but not acute- History: Was recently hospitalized for similar complaint underwent cardiaccatheterization with no stents placed, echocardiogram LVEF 55-60% with grade 1diastolic dysfunction-PE:Midsternal postsurgical scar, tenderness to palpation in mid sternal andleft lateral chest region, pain reproducible with palpation Regular rate andrhythm, no murmur, no peripheral edema.-Patient is started on nitro SL, Tylenol p.o. 650 mg p.r.n., resumed his homecardiac medicationsDiabetes mellitus, type 2, uncontrolled-Blood glucose on admission 473 HBA1C 9.6-Hold home medications, started on regular 10 units insulin x1-Ordered aggressive sliding scale insulin, Accu- Cheks. Hypoglycemic precautionson board-calculate 24-hour insulin requirement and adjust basal bolus regimenTransaminitis-Etiology secondary to chronic alcohol use-AST 48, ALT 57, alk-phos 130Chronic Alcohol use dependency-Patient states he drinks 16 oz of hard lemonade twice daily, last drink wastoday. Has been drinker since adolescence. States he used to be dependentnarcotics and replaced with alcohol. Denies history of cirrhosis.-On admission AST 48, ALT 57, alk-phos 130-Abdomen pelvis CT reveals hepatic steatosis-CIWA protocol in place with Librium 25 mg p.o. t.i.d., Ativan p.r.n., thiamine,folateCoronary artery disease with CABG in 11/2023-Resume home medication Plavix 75 mg daily, Lipitor 40 mg daily, metoprolol p.o.25 mg b.i.d., losartan p.o. 50 mg dailyLateral right 7th rib fracture-Denies pain or recent coughing episodes at this time, incidental finding on CTAchest-Lidocaine patch if needed.History of seizure and stroke-Patient has history of stroke and seizure during same hospitalization roughly 11/2 years ago. Patient was started on Keppra 500 mg b.i.d. at that time reportsno subsequent episodes of seizure activity.-Continue Keppra 500 mg b.i.d.Essential hypertension-Resume home medication amlodipine p.o. 10 mg daily, losartan p.o. 50 mg dailyInsomniaContinue trazodone 50 mg dailyPatient's chronic conditions were managed, patient's vitals and labs weremonitored throughout the patient's stay. Patient was managed on inpatientfloors and never required upgraded new levels of care.Patient seen and examined on the day of discharge in stable condition. Patientis asked to follow up with PCP within 1-2 weeks. Discharge planning andinstructions were explained to the patient and the patient verbalizedunderstanding and agreed.Patient seen and examined at bedside with Dr. Cobb, attending physician.Pt. condition on discharge: stableAllergies:Allergies:No Known Allergies (Coded, 08/26/24)Med RecMed RecDischarge meds:Stop taking the following medications:CarvediloL (Coreg) 3.125 MG TAB 3.125 MILLIGRAM ORAL TWICE DAILY NEEDED as needed for SBP GREATER [id number] taking these medications:Atorvastatin (Lipitor) 40 MG TAB 40 MILLIGRAM ORAL AT BEDTIMELosartan (Cozaar) 50 MG TAB 50 MILLIGRAM ORAL DAILY Comments: Hold if SBP<110, DBP<60traZODone (DesyreL) 50 MG TAB 50 MILLIGRAM ORAL AT BEDTIMEglipiZIDE (GlucotroL) 5 MG TAB 5 MILLIGRAM ORAL BEFORE BREAKFASTmetFORMIN (Glucophage) 1,000 MG TAB 1,000 MILLIGRAM ORAL TWICE DAILY WITH MEALSlevETIRAcetam (Keppra) 500 MG TAB 500 MILLIGRAM ORAL TWICE DAILYErgocalciferol (Vitamin D2) (Vitamin D2) 1,250 MCG (50,000 UNIT) CAP 1,250 MICROGRAM ORAL SuDulaglutide (Trulicity) 0.75 MG/0.5 ML PEN.INJCTR 0.75 MILLIGRAM SUBCUTANEOUS SuCyanocobalamin (Vitamin B-12) (Vitamin B-12) 1,000 MCG TAB 1,000 MICROGRAM ORAL DAILYFolic Acid (Folic Acid) 1 MG TAB 1 MILLIGRAM ORAL DAILYPyridoxine (Vitamin B6) (Vitamin B-6) 100 MG TAB 100 MILLIGRAM ORAL DAILYMagnesium Oxide (Mag-Ox 400) 400 MG (241.3 MG MAGNESIUM) TAB 400 MILLIGRAM ORAL DAILYamLODIPine (Norvasc) 10 MG TAB 10 MILLIGRAM ORAL DAILY Days = 30 Qty = 30 Comments: Hold if SBP<110, DBP<60clopidogreL (Plavix) 75 MG TAB 75 MILLIGRAM ORAL DAILY Days = 30 Qty = 30Apixaban (Eliquis) 5 MG TAB 5 MILLIGRAM ORAL TWICE DAILY Days = 30 Qty = 60Metoprolol Tartrate (Lopressor) 25 MG TAB 25 MILLIGRAM ORAL TWICE DAILY Days = 30 Qty = 60Isosorbide Mononitrate ER (Imdur) 30 MG TAB.ER.24H 30 MILLIGRAM ORAL TWICE DAILY Days = 30 Qty = 60Empagliflozin (Jardiance) 10 MG TAB 10 MILLIGRAM ORAL EVERY MORNINGObjectiveVS/I OLast Documented: Result Date Time Pulse Ox 94 09/05 1102 B/P 170/93 09/05 1102 B/P Mean 118.9 09/05 1102 O2 Delivery Room air 09/05 1102 Temp 36.7 09/05 1102 Pulse 89 09/05 1102 Resp 16 09/05 [id number] hour I O ending at 0700: 09/05 0700 09/04 1900 Intake Total 240 Output Total Balance 240 Intake, Oral 240 Number Voids 2 Patient 80.7 kg Weight Weight Bed scale Measurement MethodPATIENT WEIGHT:Weight (lb):Weight (oz):Weight (kg): 80.700ResultsFindings/Data:Laboratory Tests: 09/05 09/05 09/05 09/05 09/05 1103 0552 0351 0336 0116Chemistry Sodium (136 - 145 mmol/L) 142 Potassium (3.5 - 5.1 mmol/L) 3.9 Chloride (98 - 107 mmol/L) 107 Carbon Dioxide (20 - 31 mmol/L) 28 Anion Gap (7 - 16 mmol/L) 7 BUN (9 - 23 mg/dL) 10 Creatinine (0.7 - 1.3 mg/dL) 0.8 Est GFR (CKD-EPI 2020) (>90.0) > 90 BUN/Creatinine Ratio (4 - 33) 12 Glucose (57 - 106 mg/dL) 92 POC Glucose (70 - 110 mg/dl) 251 H 94 185 H Calcium (8.7 - 10.4 mg/dL) 9.0 Phosphorus (2.4 - 5.1 mg/dL) 2.5 Magnesium (1.6 - 2.6 mg/dL) 1.6 Total Bilirubin (0.3 - 1.2 mg/dL) 0.4 AST (0 - 34 U/L) 49 H ALT (10 - 49 U/L) 51 H Alkaline Phosphatase (46 - 116 U/L) 121 H Total Protein (5.7 - 8.2 g/dL) 5.8 Albumin (3.2 - 4.8 g/dL) 3.6 Globulin (1.4 - 4.8 g/dL) 2.2 Albumin/Globulin Ratio (0.7 - 3.6) 1.6Hematology WBC (4.0 - 10.5 10 3/uL) 3.9 L RBC (4.63 - 6.08 10 6/uL) 3.87 L Hgb (13.7 - 17.5 g/dL) 12.6 L Hct (40.1 - 51.0 %) 36.7 L MCV (79.0 - 92.2 fL) 94.8 H MCH (25.7 - 32.2 pg) 32.6 H MCHC (32.3 - 36.5 g/dL) 34.3 RDW (11.6 - 14.4 %) 15.5 H Plt Count (150 - 400 10 3/uL) 164 MPV (9.4 - 12.4 fL) 9.8 Immature Gran % (0.0 - 0.4 %) 0.3 Neutrophils % (34.0 - 67.9 %) 39.9 Lymphocytes % (21.8 - 53.1 %) 41.2 Monocytes % (5.3 - 12.2 %) 14.0 H Eosinophils % (0.8 - 7.0 %) 3.6 Basophils % (0.2 - 1.2 %) 1.0 Nucleated RBC % (0.0 - 0.2 %) 0.0 Immature Gran # (0.00 - 0.03 0.0110 3/uL) Neutrophils # (1.78 - 5.38 10 3/uL) 1.57 L Lymphocytes # (1.32 - 3.57 10 3/uL) 1.62 Monocytes # (0.30 - 0.82 10 3/uL) 0.55 Eosinophils # (0.04 - 0.54 10 3/uL) 0.14 Basophils # (0.01 - 0.08 10 3/uL) 0.04 Nucleated RBCs # (0.00 - 0.18 0.0010 3/uL) WBC Evaluation Comment ABNORMAL 09/04 09/04 09/04 0599 7829 2028 Chemistry POC Glucose (70 - 110 mg/dl) 264 H Troponin I High Sens (<54 ng/L) 52 Toxicology Urine Opiates Screen (NEGATIVE) NEGATIVE Ur Methadone, Qual (NEGATIVE) NEGATIVE Urine Fentanyl Screen (NEGATIVE) NEGATIVE Ur Barbiturates Screen (NEGATIVE) NEGATIVE Ur Tricyclics Screen (NEGATIVE) NEGATIVE Ur Amphetamine Screen (NEGATIVE) NEGATIVE U Benzodiazepines Scrn (NEGATIVE) NEGATIVE Urine Cocaine Screen (NEGATIVE) NEGATIVE U Marijuana (THC) Screen (NEGATIVE) NEGATIVE Alcohol, Quantitative (mg/dL) 196 Urines Urine Color (YELLOW) Colorless Urine Appearance (CLEAR) Clear Urine pH (4.5 - 7.5) 6.5 Ur Specific [place] (1.005 - 1.030) < 1.005 L Urine Protein (NEGATIVE mg/dL) Negative Urine Ketones (NEGATIVE mg/dL) Negative Urine Blood (NEGATIVE mg/dL) Negative Urine Nitrite (NEGATIVE mg/dL) Negative Urine Bilirubin (NEGATIVE mg/dL) Negative Urine Urobilinogen (Normal mg/dL) Normal Ur Leukocyte Esterase (NEGATIVE Maira/uL) Negative Urine Glucose (NEGATIVE mg/dL) >1000 (4+) HRadiology data:Recent Impressions:RADIOLOGY - CHEST PORTABLE 09/04 1713 Report Impression - Status: SIGNED Entered: 09/04/2024 1836IMPRESSION: The lungs are clear and there is no pneumothorax orpleural effusion. The heart is mildly enlarged. Prior mediansternotomy.Electronically signed by: Abdiel Mcnair MD 09/04/2024 06:32 PMEDT RPWorkstation: [id number] By: - GURVINDER ZAPIENesults: labs reviewed, vital signs reviewed, vital signs stable, current medprofile rev'dFree Text Obj NotesFree Text Obj Notes:General: Well nourished, well developed, in no distressHead and neck: head is normocephalic, atraumatic, and neck is supple. No JVDEyes, ears, nose, throat: EOMI. External structures of the nose and ears arewithout deformity. No leukoplakia. Sclera clear, oral mucosa moist.Lymphatics: No lymphadenopathy or tendernessLungs: Clear to auscultation. No wheezing, ronchi, or rales.Cardiovascular: Midsternal postsurgical scar, tenderness to palpation in midsternal and left lateral chest region, Regular rate and rhythm, no murmur. Noperipheral edemaABD: soft, non-distended, non-tender. No hepatosplenomegaly is appreciated.Musculoskeletal: No joint pain, stiffness, or deformity, T12-L3 postsurgicalvertical scar noted, tenderness to palpation in lower lumbar regionSkin: Warm, dry, normal color and temperature. No jaundice, erythema, rash, orangiomata.Neuro: Alert and oriented to person place and time. No focal deficit orweakness.Mental Status: No hallucinations or agitationDischarge InstructionsPCPPCP:PCP: No Primary or Family Physician)( Discharge to: Home/Self CareDischarge InstructionsAdditional Discharge Routines: PCP Follow-Up)( Activity: Resume Normal ActivityPrescriptions: on chartRx drug database reviewed: yesDischarge management: greater than 30 mins, face to face encounterTime spent: Time spent on patient care (minutes): 35Follow-up AppointmentsPCP follow up: PCP: No Primary or Family Physician PCP follow up timeframe: In 1-2 weeksYASMINE COBB MD 09/07/24 1454:AttestationsPhysician AttestationAgree w/findings plan:I personally completed an interview and physical examination of the patient andwas present for martinez portions of the resident's care. The patient's medicalrecord was reviewed. I discussed the case with the resident and participated inthe management and discharge of the patient. I agree with the resident'sfindings and plan as documented. The patient's current medication list was alsoreviewed and is accurate to the best of my knowledge. I spent approximately 39minutes of discharge planning. 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,Personal history of transient ischemic attack (TIA), and cerebral infarction without residual deficits,Other chest pain 30-Aug-2024 02:[id number] 03:49 Moisés Jimenez MD (Attending) [facility] Disposition:Discharged to home or self care (routine discharge) [id number] [facility] ([facility])EMERGENCY PROVIDER REPORTREPORT#:[id number] REPORT STATUS: SignedDATE:08/30/24 TIME: 0243PATIENT: RAMAN BERNAL UNIT #: [id number]#: [id number] ROOM/BED:: 64 AGE: 59 SEX: M PCP PHYS: Walker Lui MDSERVICE AUTHOR: Raman Malcolm MD R1REP SRV REP SRV TM: 0243* ALL edits or amendments must be made on the electronic/computer document *Raman Malcolm 08/30/24 0243:HPI-General IllnessFree Text HPI NotesFree Text HPI Notes59 yo male with past medical history including but not limited to coronaryartery disease (CAD), status post coronary artery bypass graft (CABG) andpercutaneous coronary intervention (PCI) presenting to the ED for chest pain.Patient reports the chest pain has been ongoing since his CABG a few months ago.Describes the pain as sharp, worsening with deep inspiration and reproducible topalpation. Patient sought ED care for resolution of his symptoms. Patient hashad a recent extensive cardiac workup with no significant stenosis found oncardiac catheterization, which is reassuring against coronary artery issues.Denies any new or different symptoms from his chronic presentation.GeneralInitial Greet Date/Time 08/30/24 0219PresentationChief Complaint Chest painPortions of this section were scribed by RODNEY GONZALEZ on 08/30/24 at 0243Review of SystemsROS StatementsAll systems rev neg except as marked.Portions of this section were scribed by RODNEY GONZALEZ on 08/30/24 at 0243Past Medical History - AdultStated Complaint CHEST PAIN X1 DAYAllergiesCoded Allergies:No Known Allergies (08/26/24)Home MedicationsActive ScriptsamLODIPine (Norvasc) 10 MG PO DAILY 30 Days #30 TAB Ref 1 Prov: 08/29/24Lidocaine 4% (Pain Relief Patch) 1 PATCH TRANSDERM DAILY 14 Days #14 PATCH Prov: 08/29/24clopidogreL (Plavix) 75 MG PO DAILY 30 Days #30 TAB Ref 4 Prov: 08/29/24Apixaban (Eliquis) 5 MG PO BID 30 Days #60 TAB Ref 2 Prov: 08/29/24Metoprolol Tartrate (Lopressor) 25 MG PO BID 30 Days #60 TAB Ref 3 Prov: 08/29/24Isosorbide Mononitrate ER (Imdur) 30 MG PO BID 30 Days #60 TAB.ER.24H Ref 2 Prov: 08/29/24Reported MedicationsErgocalciferol (Vitamin D2) (Vitamin D2) 1,250 MCG PO SuDulaglutide (Trulicity) 0.75 MG SUBQ SuAcetaminophen (TylenoL) 325 MG PO Q6H PRN PRN PAINCyanocobalamin (Vitamin B-12) (Vitamin B-12) 1,000 MCG PO DAILYFolic Acid 1 MG PO DAILYPyridoxine (Vitamin B6) (Vitamin B-6) 100 MG PO DAILYMagnesium Oxide (Mag-Ox 400) 400 MG PO DAILYAtorvastatin (Lipitor) 40 MG PO BEDTIMEtraZODone (DesyreL) 50 MG PO BEDTIMEglipiZIDE (GlucotroL) 5 MG PO AC BKmetFORMIN (Glucophage) 1,000 MG PO BID MEALSlevETIRAcetam (Keppra) 500 MG PO BIDLosartan (Cozaar) 50 MG PO DAILYDiscontinued Reported MedicationsCarvediloL (Coreg) 3.125 MG PO BID MEALSPotassium Gluconate 99 MG PO DAILYcloNIDine (Catapres) 0.1 MG PO DAILY PRN SBP > 180 OR DBP > 100Calculated Suicide Risk (nurs) No riskPast Medical History:Reports: Alcoholism/subst abuse, Coronary artery disease, Diabetes mellitus,Hypertension, Seizure disorder, Transient ischemic attack. Denies: COPD,Bleeding disorder.Past Surgical History:Reports: CABG.Alcohol Use Alcohol useSmoking status for patients 13 years old or older: Current some day smokerPortions of this section were scribed by RODNEY GONZALEZ on 08/30/24 at 0243Physical ExamVital SignsVital SignsFirst Documented: Result Date Time Pulse Ox 100 06/14 0220 B/P 146/81 08/31 219 Temp 36.8 08/31 219 Pulse 84 08/31 219 Resp 19 08/31 219 B/P Mean 108 08/31 223Last Documented: Result Date Time Pulse Ox 96 08/30 299 B/P 121/72 08/30 299 B/P Mean 91 08/30 299 Pulse 83 08/30 299 Resp 22 08/30 299 Temp 36.8 08/31 219Review of Vital Signs ReviewedFree Text PE NotesFree Text PE NotesConstitutional: NAD, pleasant, conversational, non-toxic appearing.Skin: Warm, dry, no flushing. No rashes or skin lesions.HEENT: PERRLA, moist mucous membranes.Neck: No masses, swellings, JVD. No meningeal signs, non-tender.Respiratory: CTAB, no wheeze, rhonchi, or rales. Symmetrical expansion. ==Chestwall tenderness to palpation.==Heart: RRR, no murmurs rubs or gallops, normal capillary refill, 2+ radialpulses.GI: Soft, NTND, no guarding or rebound.: No bladder distention, tenderness, or flank pain/CVA tenderness.MSK/Extremity: No swelling, painless FROM, gait intact.Neurology: A O x 3, normal speech, sensation intact.Psych: Good eye contact, normal affect and mood, normal judgement and insight.Portions of this section were scribed by RODNEY GONZALEZ on 08/30/24 at 0243Interpretation DiagnosticsLab Results InterpretationResultsLaboratory Tests08/30/24 0225:[Embedded Image Not Available]Laboratory Tests: 08/30 08/30 0320 0225 Chemistry Sodium (136 - 145 mmol/L) 143 Potassium (3.5 - 5.1 mmol/L) 3.3 L Chloride (98 - 107 mmol/L) 111 H Carbon Dioxide (20 - 31 mmol/L) 23 Anion Gap (7 - 16 mmol/L) 9 BUN (9 - 23 mg/dL) 11 Creatinine (0.7 - 1.3 mg/dL) 1.1 Est GFR (CKD-EPI 2020) (>90.0) 76.9 L BUN/Creatinine Ratio (4 - 33) 10 Glucose (57 - 106 mg/dL) 303 H Calcium (8.7 - 10.4 mg/dL) 8.1 L Magnesium (1.6 - 2.6 mg/dL) 1.7 Total Bilirubin (0.3 - 1.2 mg/dL) 0.5 AST (0 - 34 U/L) 154 H ALT (10 - 49 U/L) 93 H Alkaline Phosphatase (46 - 116 U/L) 228 H Troponin I High Sens (<54 ng/L) 34 32 Total Protein (5.7 - 8.2 g/dL) 5.7 Albumin (3.2 - 4.8 g/dL) 3.5 Globulin (1.4 - 4.8 g/dL) 2.2 Albumin/Globulin Ratio (0.7 - 3.6) 1.6 Hematology WBC (4.0 - 10.5 10 3/uL) 4.3 RBC (4.63 - 6.08 10 6/uL) 3.72 L Hgb (13.7 - 17.5 g/dL) 12.0 L Hct (40.1 - 51.0 %) 35.6 L MCV (79.0 - 92.2 fL) 95.7 H MCH (25.7 - 32.2 pg) 32.3 H MCHC (32.3 - 36.5 g/dL) 33.7 RDW (11.6 - 14.4 %) 14.3 Plt Count (150 - 400 10 3/uL) 109 L MPV (9.4 - 12.4 fL) 10.0 Immature Gran % (0.0 - 0.4 %) 0.7 H Neutrophils % (34.0 - 67.9 %) 58.2 Lymphocytes % (21.8 - 53.1 %) 27.7 Monocytes % (5.3 - 12.2 %) 11.1 Eosinophils % (0.8 - 7.0 %) 1.8 Basophils % (0.2 - 1.2 %) 0.5 Nucleated RBC % (0.0 - 0.2 %) 0.0 Immature Gran # (0.00 - 0.03 10 3/uL) 0.03 Neutrophils # (1.78 - 5.38 10 3/uL) 2.52 Lymphocytes # (1.32 - 3.57 10 3/uL) 1.20 L Monocytes # (0.30 - 0.82 10 3/uL) 0.48 Eosinophils # (0.04 - 0.54 10 3/uL) 0.08 Basophils # (0.01 - 0.08 10 3/uL) 0.02 Nucleated RBCs # (0.00 - 0.18 10 3/uL) 0.00Recent Impressions:RADIOLOGY - CHEST PORTABLE 08/30 0237 Report Impression - Status: SIGNED Entered: 08/30/2024 0339IMPRESSION:The cardiomediastinal silhouette is unremarkable.No evidence of focal airspace consolidation, pulmonary edema,pleural effusions, or pneumothorax.The osseous structures are unremarkable.Nondisplaced sternotomy wires.Electronically signed by: Yoel Butler DO 08/30/2024 03:37 AMEDT RPWorkstation: [id number] By: CLAUDIA Butler DOPortions of this section were scribed by RODNEY GONZALEZ on 08/30/24 at 0243Re-Evaluation MDMFree Text MDM NotesAdditional TextComplexity of problems:59 yo male with past medical history including but not limited to coronaryartery disease (CAD), status post coronary artery bypass graft (CABG) andpercutaneous coronary intervention (PCI) presenting to the ED for chest pain.History obtained from: Patient.Patient presenting with: Chest pain.Differential diagnosis includes but not limited to:Chronic post-CABG chest painMusculoskeletal chest painRecurrent anginaPlan: Patient will be discharged home with advice to follow up with his primarycare physician for ongoing management of chronic chest pain. No new medicationsor treatments are indicated at this time.External documents reviewed: None.Prior medical records reviewed: Recent cardiac catheterization report.ED Course: Patient evaluated and reassured of the chronic nature of his chestpain based on recent extensive cardiac workup. Pain is reproducible andconsistent with his known history. No acute interventions required.Initial lab work unremarkable for.EKG reviewed and interpreted by attending and myself showing normal sinus rhythmat a rate of 86 with no acute ischemic changes, no ST segment elevations, leftaxis deviationCXR reviewed and interpreted by attending and myself showing no acutecardiopulmonary process.Final disposition and condition: Patient to be discharged in stable condition.Discussion with attending regarding patient diagnosis, vital signs as well aslab and imaging results. Also discussed with the patient himself and need foroutpatient follow-up with PCP. Shared decision making had with patient,discussed risks, benefits, and alternatives. Patient expresses understanding andis agreeable to plan. Advised to return to ED or seek medical help if symptomssuch as chest pain, shortness of breath, lightheadedness, or dizziness develop.Watch for signs of infection and return to ED if symptoms develop.Code status: Full codeSocial determinants: NoneDictation - This chart was prepared in part using voice recognition software andthus may contain unintended word substitutions or dictation errors. If there areany questions regarding intended documentation please contact medical records.ED CourseMedication(s) OrderedMedication(s) Ordered:Central Nervous System Agents Sig/Darshana Start time Last Medication Dose Route Stop Time Status Admin Oxycodone/ 1 TAB X1ED STA 08/30 0228 DC 08/30 Acetaminophen PO 08/30 0229 0239 Aspirin 324 MG X1ED STA 08/30 0220 DC PO 08/30 0221Portions of this section were scribed by RODNEY GONZALEZ on 08/30/24 at 0243Patient Discharge DepartureVital Signs/ConditionVital SignsFirst Documented: Result Date Time Pulse Ox 100 08/30 0220 B/P 146/81 08/30 0220 Temp 36.8 08/30 0220 Pulse 84 / 0220 Resp 19 08/30 0220 B/P Mean 108 08/30 0224Last Documented: Result Date Time Pulse Ox 96 08/30 0300 B/P 121/72 08/30 0300 B/P Mean 91 08/30 0300 Pulse 83 08/30 0300 Resp 22 08/30 0300 Temp 36.8 08/30 0220All vital signs available at the time of this entry have been reviewed.Condition StableClinical ImpressionClinical ImpressionPrimary Impression: Chest painDisposition DecisionDischarge )( Discharged to Home Yes )( Time 0341 )( Date 08/30/24Discharge/Care PlanCounseled Regarding Diagnosis, Lab results, Imaging studies, Need for follow-up,When to return to EDPatient Instructions ED Noncardiac Chest Pain Discharge NoteI have spoken with the patient and/or caregivers. I have explained the patient'scondition, diagnoses and treatment plan based on the information available to meat this time. I have answered the patient's and/or caregiver's questions andaddressed any concerns. The patient and/or caregivers have as good anunderstanding of the patient's diagnosis, condition and treatment plan as can beexpected at this point. The vital signs have been stable. The patient'scondition is stable and appropriate for discharge from the emergency department.The patient will pursue further outpatient evaluation with the primary carephysician or other designated or consulting physician as outlined in thedischarge instructions. The patient and/or caregivers are agreeable to this planof care and follow-up instructions have been explained in detail. The patientand/or caregivers have received these instructions in written format and haveexpressed an understanding of the discharge instructions. The patient and/orcaregivers are aware that any significant change in condition or worsening ofsymptoms should prompt an immediate return to this or the closest emergencydepartment or a call to 911.Portions of this section were scribed by RODNEY GONZALEZ on 08/30/24 at 0243BDB ORDONEZ 09/01/24 2317:Patient Discharge DepartureDischarge/Care PlanReferralsProvider Referral: Walker Liu MD Address: [address] [place] [address]. [place], [place] [id number] Physician Note Resident Saw PtThis patient was seen by a resident. I have personally seen the patient,performed the critical or martinez portions of the service, and participated in themanagement of the patient. I have reviewed and agree with the resident's note,and I have reviewed all labs, ECGs, and imaging studies or reports. I agree withthis resident's findings, exam and plan. 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,Gastro-esophageal reflux disease without esophagitis,Noninfective gastroenteritis and colitis, unspecified,Fatty (change of) liver, not elsewhere classified,Enlarged prostate without lower urinary tract symptoms,Alcohol dependence with intoxication, unspecified,Hypertensive heart disease with heart failure,Other specified disorders of bladder,Blood alcohol level of 240 mg/100 ml or more,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,Personal history of transient ischemic attack (TIA), and cerebral infarction without residual deficits,Presence of aortocoronary bypass graft,USP (current) use of aspirin,Unspecified atrial fibrillation,Unspecified atrial fibrillation 26-Aug-2024 02:[id number] 16:37 [facility] Disposition:Discharged to home or self care (routine discharge) MANAGEMENT [id number] [facility] [address] [place] [address] Case Management Report CONFIDENTIAL PATIENT INFORMATION ENCOUNTER DATA Patient Name: RAMAN BERNAL : 63Account #: [id number] Date: 08/26/24 AGE: 59Attending Physician: Hayden Mares MD ROOM: 324-A ----- --[facility] SUPPORT SERVICES ----- ---[facility] Support Services User Bowman: Date Entered: 08/29/2024Service Type: Important Message from Medicare - IMCase Worker: Sveta DowJeremy [place] [address] PCUWorklist Date: 08/31/2024Payer: [place] [employer] WELLMEDComments:--- 08/29/2024 09:54 AM by Kaushal Guerrero ---spoke to pt obtained imm and signed electronically Date Entered: 08/27/2024Service Type: *Care CoordinationCase Worker: SpringJe[place]y [place] [address] PCUWorklist Date: 08/30/2024Payer: [employer] MED[employer] WELLMEDComments:--- 08/27/2024 12:40 PM by Asmita Polo ---CM spoke with patient to complete initial assessment.CM role explained. Reason for hospitalization: afib rvrPatient is alert and oriented.Patient s primary contacts/ POA: Carol (mother) [phone] has dir/living will.Facesheet demographics reviewed/verified; no changesPatient resides with : staying with his brotherPatient Name: RAMAN BERNAL has the following DME: nonePatient is currently active with: n/aHHC/SNF preference: n/aPrior to hospitalization, pt was: independentPt able to obtain medications outpatient.Planned discharge transportation discussed with the patient. - no needsCurrent Discharge Plan: home ----H CM DISCHARGE PLANNING ----- ---HCM Discharge Planning Comments: ----- ----HCM DISCHARGE PLANNING EVALUATION ----- -----Case Workers: Ayo Polo Status: SiblingSetting: Home- residenceADL Limits: None or n/aDME: NoneHCM Discharge Planning User Bowman:Community Services Prior to Admission: None or NACurrent Mental Status/Cognition: Alert and OrientedInformation obtained from: PatientDischarge Barriers, select all that apply: None or NAReadmission (unplanned) in the last 30 days: NoPatient goals and preferences after discharge: homeBased on information gathered, is it likely that the patient's care needs canbe met in the environment from which he/she entered the hospital?: YesProposed Discharge Plan, select one: HomeHome Services needed: None or Mauricio a caregiver is needed, is there a caregiver available, willing and capableto provide care?: Not NeededCommunity services needed: NonePatient Name: RAMAN BERNAL DME required at discharge: None or Mauricio new DME is required, is patient able to obtain DME?: YesHome Modifications required: None or Mauricio home modifications are required, is patient able to obtain them?: NotApplicablePatient concerns about obtaining medications on day of discharge?: NoneTransportation needs at discharge: no needsDischarge Plan Discussed with: PatientHave you discussed with the patient how his/her care needs may change overtime?: YesPatient/manufacturer representative agrees with discharge plan: YesDiscussed expected insurance coverage and/or out of pocket expenses: NotApplicableDate / Time: 08/27/2024 12:39 PMEvaluated by: Asmita Polo ===== =========Updated by: Asmita Polo () - 08/31/2024 11:40 AM ==Pat ient Name: RAMAN BERNAL Emergency Encounter Reason:[id number] Encounter Diagnosis:Headache, unspecified,Essential (primary) hypertension,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,Nicotine dependence, unspecified, uncomplicated,Personal history of transient ischemic attack (TIA), and cerebral infarction without residual deficits,Presence of aortocoronary bypass graft,USP (current) use of oral hypoglycemic drugs,Type 2 diabetes mellitus with hyperglycemia 07-Jul-2024 11:[id number] 16:09 [facility] Discharge Disposition:Discharged to home or self care (routine discharge) Chu Francisco MD-07-Jul-2024 [facility] ([facility])OR [facility] PROVIDER REPORTREPORT#:[id number] REPORT STATUS: SignedDATE:07/07/24 TIME: 1254PATIENT: RAMAN BERNAL UNIT #: [id number]#: [id number] ROOM/BED:: 64 AGE: 59 SEX: M PCP PHYS: Walker Lui DOSERVICE AUTHOR: Nolan Sage MDREP SRV REP SRV TM: 1254* ALL edits or amendments must be made on the electronic/computer document *HPI-HeadacheGeneralConfirmed Patient YesInitial Greet Date/Time 07/07/24 1148PresentationChief Complaint HeadacheHx Obtained From PatientSudden in Onset? NoOnset Occurred Days ago (5)Pain/Sev: Onset MildFree Text HPI NotesFree Text HPI NotesHe came in today complaining of headache and bodyaches. Started 5 days ago.Also with chills. He has been seen by [facility] clinic few days ago. COVID andflu tests were negative. He smokes and drinks. Hx of Diabetes and hypertension.History of osteomyelitis last January 2023. He denies any vomiting ordiarrhea. He has some occasional productive coughing.Risk-HeadacheRisk StratificationStroke Risk factors reviewed)( Subarachnoid Hemorrhage Risk factors reviewed)( IC Mass Lesion Risk factors reviewedReview of SystemsROS StatementsAll systems rev neg except as marked.Focused Review of SystemsConstitutionalReports: Weakness - generalized. Denies: Chills, Fever.Ears/Nose/ThroatDenies: Nasal congestion, Sinus problem, Sore throat.GIReports: Nausea, Vomiting. Denies: Abdominal pain, Diarrhea.MusculoskeletalReports: Myalgia. Denies: Neck pain.SkinDenies: Itching, Rash.NeurologicReports: Dizziness, Headache. Denies: Confusion, Focal weakness, Numbness.Past Medical History - AdultStated Complaint [id number] Allergies:No Known Allergies (11/20/22)Home MedicationsActive ScriptsIBUPROFEN (MOTRIN) 800 MG PO TID PRN PRN PAIN IBUPROFEN (MOTRIN) 800 MG PO TID PRN PRN PAIN #30 TABS Prov: 11/20/22LIDOCAINE (LIDODERM 5%) 1 PATCH TRANSDERM DAILY PRN Pain LIDOCAINE (LIDODERM 5%) 1 PATCH TRANSDERM DAILY PRN Pain #30 PATCHES Prov: 11/20/22methocarbamoL (ROBAXIN) 500 MG PO TID PRN PRN Muscle Pain methocarbamoL (ROBAXIN) 500 MG PO TID PRN PRN Muscle Pain #30 TABS Prov: 11/20/22ONDanestron (ZOFRAN ODT) 8 MG PO Q12H PRN PRN NAUSEA/VOMITING ONDanestron (ZOFRAN ODT) 8 MG PO Q12H PRN PRN NAUSEA/VOMITING #15 TABS Prov: 07/29/23Reported MedicationsATORVASTATIN (LIPITOR) 40 MG PO BEDTIMELOSARTAN (COZAAR) 50 MG PO DAILYcarvediloL 3.125 MG PO BIDmetFORMIN 500 MG PO BIDReview of Nursing Notes Rev avail, and agreePast Medical History:Reports: Coronary artery disease, Diabetes mellitus, Hypertension, Seizuredisorder, Ischemic stroke.Additional Medical HistoryOsteomyelitis May 12 continues on antibiotics. [place] and CABG November 09 Dr wall of cardiologyPhysical ExamVital SignsVital SignsFirst Documented: Result Date Time Pulse Ox 97 07/07 1141 B/P 132/67 07/07 1141 O2 Delivery Room air 07/07 1141 Temp 98.0 07/07 1141 Pulse 80 07/07 1141 Resp 14 07/07 1141Last Documented: Result Date Time Pulse Ox 98 07/07 1609 B/P 127/69 07/07 1609 O2 Delivery Room air 07/07 1609 Pulse 78 07/07 1609 Resp 16 07/07 1609 Temp 98.0 07/07 1141Review of Vital Signs ReviewedFocused PEGeneral/Const General/Const Alert, No acute distress, Well appearing, Not toxic appearingMS Head Head AtraumaticEars/Nose/Throat Ears/Nose/Throat Airway patent, Mucous membranes moist, Pharynx NLMS Neck Neck Supple, No meningismus, No adenopathyResp/Chest Respiratory/Chest Breath sounds NL, Breath sounds = bilat, No respiratorydistressCardiovascular Cardiovascular Heart rate NL, Regular rhythm, Heart sounds NLAbdomen/GI Abdomen/GI Soft, Non-tender, No guarding, BS normoactive, No distentionSkin Skin No rashNeurologic Neurologic Oriented X3, Speech NL, No motor deficits, No sensory deficits, CNII - XII intact, Reflexes equal bilat, Cerebellar NL, Memory NL, Gait NLInterpretation DiagnosticsLab Results InterpretationResultsLaboratory Tests07/07/24 1220:[Embedded Image Not Available]Laboratory Tests: 07/07 07/07 07/07 07/07 1554 1419 1305 1220 Chemistry POC Glucose (65 - 99 MG/DL) 176 H 374 H Serology SARS-CoV-2 Ag (Rapid) (Negative) NEGATIVE Toxicology Urine Opiates Screen (NEGATIVE) NEGATIVE Ur Barbiturates Screen (NEGATIVE) NEGATIVE Ur Phencyclidine Scrn (NEGATIVE) NEGATIVE Ur Amphetamine Screen (NEGATIVE) NEGATIVE MDMA (NEGATIVE) NEGATIVE U Benzodiazepines Scrn (NEGATIVE) NEGATIVE Urine Cocaine Screen (NEGATIVE) NEGATIVE U Cannabinoids Screen (NEGATIVE) NEGATIVE 07/07 1220 Chemistry Sodium (133 - 145 MMOL/L) 137 Potassium (3.6 - 5.2 MMOL/L) 3.3 L Chloride (100 - 108 MMOL/L) 99 L Carbon Dioxide (22 - 32 MMOL/L) 23 BUN (6 - 20 MG/DL) 12 Creatinine (0.60 - 1.00 MG/DL) 1.25 H Estimated GFR (MDRD) (49 - 113) 66 Glucose (65 - 99 MG/DL) 431 *H Calcium (8.7 - 10.5 MG/DL) 8.7 Total Bilirubin (0.0 - 1.0 MG/DL) 0.6 AST (15 - 37 Units/L) 89 H ALT (30 - 65 Units/L) 65 Alkaline Phosphatase (50 - 136 Units/L) 116 Total Protein (6.4 - 8.2 G/DL) 6.6 Albumin (3.4 - 5.0 G/DL) 3.4 Globulin (1.5 - 3.8 G/DL) 3.2 Albumin/Globulin Ratio (1.1 - 2.2) 1.1 Hematology WBC (4.80 - 10.80 x10 3/uL) 4.89 RBC (4.7 - 6.1 x10 6/uL) 5.08 Hgb (14.0 - 17.0 G/DL) 15.2 Hct (42 - 52 %) 44.9 MCV (80 - 94 FL) 88.4 MCH (27 - 31 PG) 29.9 MCHC (33 - 37 G/DL) 33.9 RDW Coeff of Carmenza (11.5 - 14.5 %) 14.1 Plt Count (150 - 450 x10 3/uL) 128 L MPV (7.4 - 10.4 FL) 10.5 H Neut % (Auto) (42 - 86 %) 48.3 Lymph % (Auto) (24 - 44 %) 39.7 Glasscock % (Auto) (0.0 - 4.0 %) 9.8 H Eos % (Auto) (0.0 - 2.7 %) 1.8 Baso % (Auto) (0.0 - 0.5 %) 0.4 Eos # (Auto) (0.0 - 0.5 x10 3/uL) 0.09 Baso # (Auto) (0.0 - 0.2 x10 3/uL) 0.02 Absolute Neuts (auto) (1.8 - 7.7 x10 3/uL) 2.36 Absolute Lymphs (auto) (1.0 - 4.8 x10 3/uL) 1.94 Absolute Monos (auto) (0.0 - 0.8 x10 3/uL) 0.48 Miscellaneous Miscellaneous Test Called Toxicology Ethyl Alcohol (0 - 10 MG/DL) 227 H Urines Ur Spec Description Clean Catch Urine Color (YELLOW) YELLOW Urine Appearance (CLEAR) CLEAR Urine pH (5.5 - 7.0) 7.0 Ur Specific [place] (1.001 - 1.035) 1.005 Urine Protein (NEGATIVE mg/dL) NEGATIVE Urine Glucose (UA) (NEGATIVE mg/dL) 1000 H Urine Ketones (NEGATIVE mg/dL) NEGATIVE Urine Blood (NEGATIVE) NEGATIVE Urine Nitrite (NEGATIVE) NEGATIVE Urine Bilirubin (NEGATIVE) NEGATIVE Urine Urobilinogen (NORMAL mg/dL) NORMAL Ur Leukocyte Esterase (NEGATIVE) NEGATIVE Urine Comment VOLUME 10-12 MLMicrobiology: Date/Time Procedure - Status Source Growth 07/07 1305 Influenza Virus Type B Antigen - COMP NASOPHARG 07/07 130 Influenza Virus Type A Antigen - COMP NASOPHARGRecent Impressions:RADIOLOGY - XR CHEST 1 V 07/07 1259 Report Impression - Status: SIGNED Entered: 07/07/2024 1343IMPRESSION:Unremarkable frontal chest radiograph.Electronically signed by: Vinny Grant MD 07/07/2024 01:41PM CDT RP Workstation: [id number] By: [email or web address] Mary Garnt [facility] SCAN - CT HEAD/BRAIN W/O CONT 07/07 1422 Report Impression - Status: SIGNED Entered: 07/07/2024 1448IMPRESSION:No acute- appearing imaging abnormality.Electronically signed by: Vinny Grant MD 07/07/2024 02:46PM CDT RP Workstation: [id number] By: [email or web address] Mary Grant MD Lab Imaging StatementLaboratory radiographic studies reviewed and considered in the medicaldecision-making.Re-Evaluation MDMFree Text MDM NotesFree Text MDM Noteslabs were reviewed. he has hyperglycemia. no anion gap. no infection. hydratehim and insulin i.v. he is not compliant with his diet. he is only takingmetformin and glipizide. he drinks alcohol every day.)( Re-Evaluation/Progress #1)( Re-Eval Status ImprovedED CourseMedication(s) OrderedMedication(s) Ordered:Central Nervous System Agents Sig/Darshana Start time Last Medication Dose Route Stop Time Status Admin Ibuprofen 600 MG X1ED STA 07/07 1320 DC 07/07 PO 07/07 1321 1330Electrolytic, Caloric, And Lety Sig/Darshana Start time Last Medication Dose Route Stop Time Status Admin Lactated Ringer's 1,000 ML X1ED STA 07/07 1412 DC 07/07 IV 07/07 1511 1414 Lactated Ringer's 1,000 ML X1ED STA 07/07 1329 DC 07/07 IV 07/07 1428 1339Hormones And Synthetic Substit Sig/Darshana Start time Last Medication Dose Route Stop Time Status Admin Insulin Human Regular 5 UNIT X1ED STA 07/07 1412 DC 07/07 IV 07/07 1413 1421Differential Diagnosis)( Differential Diagnosis Headache, hypertensive, Headache, muscular contra,Headache, tension, SinusitisPatient Discharge DepartureVital Signs/ConditionVital SignsFirst Documented: Result Date Time Pulse Ox 97 07/07 1141 B/P 132/67 07/07 1141 O2 Delivery Room air 07/07 1141 Temp 98.0 07/07 1141 Pulse 80 07/07 1141 Resp 14 07/07 1141Last Documented: Result Date Time Pulse Ox 98 07/07 1609 B/P 127/69 07/07 1609 O2 Delivery Room air 07/07 1609 Pulse 78 07/07 1609 Resp 16 07/07 1609 Temp 98.0 07/07 1141All vital signs available at the time of this entry have been reviewed.Condition StableClinical ImpressionClinical ImpressionPrimary Impression: Hyperglycemia due to type 2 diabetes mellitusDisposition DecisionDischarge )( Discharged to Home Yes )( Time 1605 )( Date 07/07/24Discharge/Care PlanCounseled Regarding Diagnosis, Lab results, Imaging studies, Need for follow-up,When to return to ED, Alcohol cessationPatient Instructions ED Diabetes with High Blood SugarAdditional InstructionsContinue medications for your diabetes. Observe diabetic diet.ReferralsReferral: walker lui Follow-Up: 2-3 Days Discharge NoteI have spoken with the patient and/or caregivers. I have explained the patient'scondition, diagnoses and treatment plan based on the information available to meat this time. I have answered the patient's and/or caregiver's questions andaddressed any concerns. The patient and/or caregivers have as good anunderstanding of the patient's diagnosis, condition and treatment plan as can beexpected at this point. The vital signs have been stable. The patient'scondition is stable and appropriate for discharge from the emergency department.The patient will pursue further outpatient evaluation with the primary carephysician or other designated or consulting physician as outlined in thedischarge instructions. The patient and/or caregivers are agreeable to this planof care and follow-up instructions have been explained in detail. The patientand/or caregivers have received these instructions in written format and haveexpressed an understanding of the discharge instructions. The patient and/orcaregivers are aware that any significant change in condition or worsening ofsymptoms should prompt an immediate return to this or the closest emergencydepartment or a call to 911. 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,Presence of aortocoronary bypass graft,Weakness 18-Jun-2024 19:[id number] 20:36 [facility] Discharge Disposition:Left against medical advice or discontinued care Allen Venegas YIZYLZ-6-Oln-2025 [facility] ([facility])OR A [facility] PROVIDER REPORTREPORT#:[id number] REPORT STATUS: SignedDATE:06/18/24 TIME: ATIENT: RAMAN BERNAL UNIT #: [id number]#: [id number] ROOM/BED:: 64 AGE: 58 SEX: M PCP PHYS: Walker Lui DOSERVFRED DT: AUTHOR: AllenGiana APRNNPREP SRV REP SRV TM: 2030* ALL edits or amendments must be made on the electronic/computer document *HPI-Dizziness/WeaknessFree Text HPI NotesFree Text HPI NotesPatient is ambulatory to treatment room, states that his blood sugar reading wasover 600 and he has been feeling intermittent weakness for the last few weeks.Denies any nausea or vomiting.After few minutes of waiting for blood to be drawn, patient became impatient andstates that he will follow-up with his physician does not want to wait for bloodto be drawn or EKG to be done.GeneralConfirmed Patient YesInitial Greet Date/Time 06/18/24 1950PresentationChief Complaint Weakness, generalizedReview of SystemsROS StatementsAll systems rev neg except as marked.Complete sys rev neg except as marked.Basic Review of SystemsBasic ROS MS: No ext swelling/painFocused Review of SystemsNeurologicReports: Generalized weakness. Denies: Abnormal movement, Bladder dysfunction,Bowel dysfunction, Change LOC, Confusion, Dizziness, Focal weakness, Headache,Lightheaded, Numbness, Problem walking, Seizure, Shaking, Slurred speech,Spinning sensation, Syncope, Tingling, Unable to speak, Vision change.Past Medical History - AdultStated Complaint CHEST IEHC-LYE-ICPD-DIZZYAllergiesCoded Allergies:No Known Allergies (11/20/22)Home MedicationsActive ScriptsIBUPROFEN (MOTRIN) 800 MG PO TID PRN PRN PAIN IBUPROFEN (MOTRIN) 800 MG PO TID PRN PRN PAIN #30 TABS Prov: 11/20/22LIDOCAINE (LIDODERM 5%) 1 PATCH TRANSDERM DAILY PRN Pain LIDOCAINE (LIDODERM 5%) 1 PATCH TRANSDERM DAILY PRN Pain #30 PATCHES Prov: 11/20/22methocarbamoL (ROBAXIN) 500 MG PO TID PRN PRN Muscle Pain methocarbamoL (ROBAXIN) 500 MG PO TID PRN PRN Muscle Pain #30 TABS Prov: 11/20/22ONDanestron (ZOFRAN ODT) 8 MG PO Q12H PRN PRN NAUSEA/VOMITING ONDanestron (ZOFRAN ODT) 8 MG PO Q12H PRN PRN NAUSEA/VOMITING #15 TABS Prov: 07/29/23Reported MedicationsATORVASTATIN (LIPITOR) 40 MG PO BEDTIMELOSARTAN (COZAAR) 50 MG PO DAILYcarvediloL 3.125 MG PO BIDmetFORMIN 500 MG PO BIDPast Medical History:Reports: Coronary artery disease, Diabetes mellitus, Hypertension, Seizuredisorder, Ischemic stroke.Additional Medical HistoryOsteomyelitis May 12 continues on antibiotics. MN and CABG November 09 Dr wall of cardiologyPhysical ExamVital SignsReview of Vital Signs Reviewed, Vital signs normalBasic Physical ExamBasic PE HEAD: Atraumatic/NC, EYES: PERRL, conj clear, ENT: Membranes moist,NECK: Supple, ABD: Soft/non-tender, EXT: No gross abnormality, SKIN: No rashes,warm/dry, PSYCH: NL thought contentFocused PEGeneral/Const General/Const Awake, Alert, No acute distress, Well appearing, Well developed, Well hydrated, Well nourished, Cooperative, Not toxic appearingResp/Chest Respiratory/Chest Atraumatic, Breath sounds NL, Breath sounds = bilat, Norespiratory distress, No rales, No rhonchi, No wheezing, No retractions, Nostridor, No chest tenderness, No chest wall deformity, No crepitusCardiovascular Cardiovascular Heart rate NL, Regular rhythm, Heart sounds NL, No gallop, Nomurmurs, No rubs, Cap refill not delayed, Peripheral circulation NL, Pulses =bilaterally, No gross BP differentialNeurologic Neurologic Oriented X3, Speech NL, No motor deficits, No sensory deficits, CNII - XII intact, Reflexes equal bilat, Cerebellar NL, Memory NL, Gait NLRe-Evaluation MDMED CourseMedication(s) OrderedMedication(s) Ordered:Electrolytic, Caloric, And Lety Sig/Darshana Start time Last Medication Dose Route Stop Time Status Admin Sodium Chloride 1,000 ML BOLUS ONCE ONE 06/19 1999 DC IV 06/18 2000Gastrointestinal Drugs Sig/Darshana Start time Last Medication Dose Route Stop Time Status Admin Ondansetron HCl 4 MG X1ED STA 06/18 1957 DC IV 06/18 1958Differential Diagnosis)( Differential Diagnosis Anemia, Acute coronary syndrome, Anxiety reaction, DKAPatient Discharge DepartureVital Signs/ConditionVital SignsAll vital signs available at the time of this entry have been reviewed.Clinical ImpressionClinical ImpressionPrimary Impression: WeaknessDisposition DecisionOther Against Medical Advice YesDischarge/Care PlanCounseled Regarding DiagnosisAgainst Medical Advice AMA Note 1MR GABE decided to leave our facility against medical advice. I haveassessed the patient's ability to make an informed decision and it is my opinionat this time that the patient has the medical decision-making capacity tocomprehend information regarding current medical condition and appreciates theimpact of the disease or condition and the consequences of various options fortreatment, including foregoing treatment. The patient possesses the ability toevaluate all treatment options, compare the risks and benefits of each option,communicate choice in a consistent manner over time, and is able to makerational choices. I have explained to the patient further testing, treatment,and evaluation I would like to perform during the current emergency departmentvisit as well as any possible alternatives that could be accomplished in atimely manner. I have outlined the possible risks of foregoing any or all ofthese interventions and the patient understands and acknowledges that thedecision to leave may result in undesirable consequences such as ,permanent disability, and/or loss of current lifestyle. Even though leaving AMAis not ideal, I have instructed the patient to follow any discharge instructionsgiven, take any medications prescribed, and resume care as soon as possible withanother provider. Additionally, we clearly stated that the patient is welcome toreturn at any time to continue care at our facility. at 2036 at 0157RPT #:[id number] OF REPORT Emergency Encounter Reason:PUI-CHEST GOVZ-JGH-ZHGL-DIZZY Encounter Diagnosis:Pain in left shoulder 18-Apr-2024 22:[id number] 01:24 [facility] Discharge Disposition:Discharged to home or self care (routine discharge) Bassam Lopez [id number]-Zmz18-Apr-2024 [facility] ([facility]OR [facility] PROVIDER REPORTREPORT#:[id number] REPORT STATUS: SignedDATE:04/18/24 TIME: 2257PATIENT: RAMAN BERNAL UNIT #: [id number]#: [id number] ROOM/BED:: 64 AGE: 58 SEX: M PCP PHYS: Walker Lui DOSERVICE AUTHOR: Grupo Banegas DOREP SRV REP SRV TM: 2258* ALL edits or amendments must be made on the electronic/computer document *HPI-Chest Pain 40 and OverFree Text HPI NotesFree Text HPI NotesPatient is a 58-year-old male with history of CABG 6 months ago who follows withcardiologist Dr. Wall. He presents with chief complaint of acute chest painthat started about 2 hours prior to arrival. He was resting and watching videoswhen the pain started. Reports left-sided pain going down his left arm. Statespain is persistent and has not let up at all. He did take 2 full aspirin beforecoming to the ER. He also takes Plavix at home. No associated nausea, vomiting, diaphoresis, or shortness of breath.GeneralConfirmed Patient YesInitial Greet Date/Time 04/18/24 2212PresentationChief Complaint Chest painSudden in Onset? YesRisk-Chest Pain 40 and OverRisk Stratification)( Coronary Artery Disease Risk factors reviewed, Known CADReview of SystemsROS StatementsAll systems rev neg except as marked.Focused Review of SystemsCardiovascularReports: Chest pain.Past Medical History - AdultStated Complaint PUI-CHEST BKEO-PQP-CZBK-DIZZYAllergiesCoded Allergies:No Known Allergies (11/20/22)Home MedicationsActive ScriptsIBUPROFEN (MOTRIN) 800 MG PO TID PRN PRN PAIN IBUPROFEN (MOTRIN) 800 MG PO TID PRN PRN PAIN #30 TABS Prov: 11/20/22LIDOCAINE (LIDODERM 5%) 1 PATCH TRANSDERM DAILY PRN Pain LIDOCAINE (LIDODERM 5%) 1 PATCH TRANSDERM DAILY PRN Pain #30 PATCHES Prov: 11/20/22methocarbamoL (ROBAXIN) 500 MG PO TID PRN PRN Muscle Pain methocarbamoL (ROBAXIN) 500 MG PO TID PRN PRN Muscle Pain #30 TABS Prov: 11/20/22ONDanestron (ZOFRAN ODT) 8 MG PO Q12H PRN PRN NAUSEA/VOMITING ONDanestron (ZOFRAN ODT) 8 MG PO Q12H PRN PRN NAUSEA/VOMITING #15 TABS Prov: 07/29/23Reported MedicationsATORVASTATIN (LIPITOR) 40 MG PO BEDTIMELOSARTAN (COZAAR) 50 MG PO DAILYcarvediloL 3.125 MG PO BIDmetFORMIN 500 MG PO BIDReview of Nursing Notes Rev avail, and agreePhysical ExamVital SignsVital SignsFirst Documented: Result Date Time Pulse Ox 99 04/18 2210 B/P 128/60 04/18 2210 O2 Delivery Room air 04/18 2210 Temp 36.7 04/18 2210 Pulse 94 04/18 2210 Resp 18 04/18 2211Last Documented: Result Date Time Pulse Ox 98 04/19 123 B/P 100/58 04/19 123 O2 Delivery Room air 04/19 123 Pulse 83 04/19 123 Resp 19 04/19 012 Temp 36.7 04/18 2211Review of Vital Signs ReviewedFocused PEGeneral/Const General/Const Awake, Alert, No acute distress, Well appearing, Well developed, Well hydrated, Well nourished, CooperativeEyes Eyes Atraumatic, PERRL, EOMIMS Neck Neck Atraumatic, Supple, No meningismusResp/Chest Respiratory/Chest Atraumatic, Breath sounds NL, Breath sounds = bilat, Norespiratory distressCardiovascular Cardiovascular Heart rate NL, Regular rhythm, Heart sounds NLAbdomen/GI Abdomen/GI Atraumatic, Soft, Non-tenderMS Back Back Atraumatic, Inspection NL, Full range of motionMS Lower Extrem Lower Ext/Pelvis/MS Atraumatic, Inspection NL, Full range of motionSkin Skin Warm, Dry, IntactNeurologic Neurologic Oriented X3, Speech NL, No motor deficits, No sensory deficits, CNII - XII intactPsychiatric Psychiatric Affect NL, Mood NLInterpretation DiagnosticsLab Results InterpretationConsiderations Independ review imagingResultsLaboratory Tests04/18/24 2314:[Embedded Image Not Available]Laboratory Tests: 04/19 04/18 0037 2314 Chemistry Sodium (133 - 145 MMOL/L) 139 Potassium (3.6 - 5.2 MMOL/L) 3.9 Chloride (100 - 108 MMOL/L) 102 Carbon Dioxide (22 - 32 MMOL/L) 22 BUN (6 - 20 MG/DL) 30 H Creatinine (0.60 - 1.00 MG/DL) 1.17 H Estimated GFR (MDRD) (56 - 130) 72 Glucose (65 - 99 MG/DL) 248 H Calcium (8.7 - 10.5 MG/DL) 9.4 Total Bilirubin (0.0 - 1.0 MG/DL) 0.3 AST (15 - 37 Units/L) 25 ALT (30 - 65 Units/L) 36 Alkaline Phosphatase (50 - 136 Units/L) 99 Troponin I High Sens (< 76 ng/L) 16 16 NT-Pro-B Natriuret Pep (0 - 125 PG/ML) 352 H Total Protein (6.4 - 8.2 G/DL) 7.4 Albumin (3.4 - 5.0 G/DL) 3.9 Globulin (1.5 - 3.8 G/DL) 3.5 Albumin/Globulin Ratio (1.1 - 2.2) 1.1 Coagulation APTT (24.7 - 38.0 SECONDS) 33.3 Hematology WBC (4.80 - 10.80 x10 3/uL) 9.73 RBC (4.7 - 6.1 x10 6/uL) 4.37 L Hgb (14.0 - 17.0 G/DL) 14.1 Hct (42 - 52 %) 42.4 MCV (80 - 94 FL) 97.0 H MCH (27 - 31 PG) 32.3 H MCHC (33 - 37 G/DL) 33.3 RDW Coeff of Carmenza (11.5 - 14.5 %) 12.9 Plt Count (150 - 450 x10 3/uL) 205 MPV (7.4 - 10.4 FL) 11.0 H Neut % (Auto) (42 - 86 %) 59.4 Lymph % (Auto) (24 - 44 %) 30.8 Glasscock % (Auto) (0.0 - 4.0 %) 7.1 H Eos % (Auto) (0.0 - 2.7 %) 2.2 Baso % (Auto) (0.0 - 0.5 %) 0.5 Eos # (Auto) (0.0 - 0.5 x10 3/uL) 0.21 Baso # (Auto) (0.0 - 0.2 x10 3/uL) 0.05 Absolute Neuts (auto) (1.8 - 7.7 x10 3/uL) 5.78 Absolute Lymphs (auto) (1.0 - 4.8 x10 3/uL) 3.00 Absolute Monos (auto) (0.0 - 0.8 x10 3/uL) 0.69Recent Impressions:RADIOLOGY - XR CHEST 1 V 04/180 Report Impression - Status: SIGNED Entered: 04/18/2024 2343IMPRESSION:No evidence of acute cardiopulmonary disease.Electronically signed by: Yuri Sandhu MD 04/18/2024 11:41 [facility] [id number] By: LEV - Yuri Sandhu MD Lab Imaging StatementLaboratory radiographic studies reviewed and considered in the medicaldecision-making.ECG #1 InterpretationDate 04/18/24Time 2300Interpreted by and reviewed by me, Independently interpreted, ED physicianNL ECG Interpretation Normal rate, Normal sinus rhythm, No acute ischemicchanges, No STEMI, Normal QRS, Normal ST waves, Normal T waves, Normal axis,Normal intervals, Adequate tracingRe-Evaluation MDMED CourseMedication(s) OrderedMedication(s) Ordered:Central Nervous System Agents Sig/Darshana Start time Last Medication Dose Route Stop Time Status Admin Ketorolac 15 MG X1ED STA 04/19 0007 DC 04/19 Tromethamine IV 04/19 7 0025Electrolytic, Caloric, And Lety Sig/Darshana Start time Last Medication Dose Route Stop Time Status Admin Sodium Chloride 1,000 ML X1ED STA 04/19 0007 DC 04/19 IV 04/19 7 0024Patient Discharge DepartureVital Signs/ConditionVital SignsFirst Documented: Result Date Time Pulse Ox 99 04/18 2210 B/P 128/60 04/18 2210 O2 Delivery Room air 04/18 2210 Temp 36.7 04/18 2210 Pulse 94 04/18 2210 Resp 18 04/18 2211Last Documented: Result Date Time Pulse Ox 98 04/19 0124 B/P 100/58 04/19 0124 O2 Delivery Room air 04/19 0124 Pulse 83 04/19 0124 Resp 19 04/19 0124 Temp 36.7 04/18 2211All vital signs available at the time of this entry have been reviewed.Condition Stable, ImprovedClinical ImpressionClinical ImpressionPrimary Impression: Left shoulder painDisposition DecisionDischarge )( Discharged to Home Yes )( Time 0117 )( Date 04/19/24Discharge/Care PlanCounseled Regarding Diagnosis, Lab results, Imaging studies, Need for follow-up,When to return to EDPatient Instructions ED Shoulder Pain, Uncertain CauseAdditional InstructionsFollow-up with your transit mixer operator as soon as possible.Return to the emergency department as needed for new or worsening symptoms.ReferralsProvider Referral: Keyonna Wall MD Follow-Up: First Available Address: [address] [place] [address] [address] [place], [place] [address]Cnuxmpbajgbxzy Signed by Grupo Banegas DO on 04/19/24 at 0448RPT #:[id number] OF REPORT Inpatient encounter Encounter Reason:ACUTE ALCOHOLIC HEPATITIS Encounter Diagnosis:Alcoholic hepatitis without ascites,432,Acute on chronic combined systolic (congestive) and diastolic (congestive) heart failure,ALCOHOL ABUSE WITH WITHDRAWAL, UNSPECIFIED,Osteomyelitis, unspecified,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,Hypertensive heart disease with heart failure,Other chronic pain,Nicotine dependence, cigarettes, uncomplicated,Old myocardial infarction,HEPATIC ENCEPHALOPATHY,Type 2 diabetes mellitus with other specified complication,Hypokalemia,Chronic obstructive pulmonary disease, unspecified,Pure hypercholesterolemia, unspecified,Presence of aortocoronary bypass graft,Alcoholic hepatitis without ascites 12-Feb-2024 00:[id number]-[id number] 14:37 [facility] Discharge Disposition:Discharged/t ransferred to home under care of organized home health service organization MANAGEMENT [id number] [place], [place]PATIENT NAME: RAMAN BERNAL ADMIT DATE: 02/12/24ACCOUNT NO: [id number] ROOM NO: [id number] RECORD NO: [id number] AGE: 58REPORT TYPE: CASE MANAGEMENT REPORT SEX: MADMITTING PHYSICIAN:Josue Mena PHYSICIAN:Josue Mena MD --HCM SUPPORT SERVICES ----- ---HCM Support Services User Bowman:Discharge Disposition: 06 - Home HealthReturning Facility: N Date Entered: 02/14/2024Service Type: *Care CoordinationCase Worker: ArchieSSM [facility],IMUWorklist Date: 02/20/2024ayer: UNITED MEDICARE WELLMEDComments:--- 02/14/2024 01:37 PM by Sugar Culp --- P: Discharge PlanningA: Consulted by Dr MENA for ETOH resources.I: Met with patient and provided ETOH resources.P: CM to follow for further needs. Date Entered: 02/20/2024Service Type: Home Health AgencyCase Worker: Joanne BrooksWorklist Date: 03/19/2005gency: [facility]iceReferral Status:Booked ----- --------HCM DISCHARGE PLANNING ----- ---PATIENT NAME: RAMAN BERNAL Discharge Planning Comments:--- 02/12/2024 12:23 PM by Joanne Brooks ---Information from: PATIENTReason for admit: ACUTE ALCOHOLIC HEPATITISLiving Arrangements: PARENTSIndependent with ADLs (if no, describe): YESIndependent with mobility (if no, describe): YESHome Services (Provider, Home Health, DME): NONEHemodialysis: NONEName of PCP/ last visit: SEES MD WALKER LUI, LAST SEEN A WEEK AGOAdd l MDs seen: CARDIOTaking all meds as prescribed/ if not, why: YESPrescription Plan: YESPref[facility] Admission: NOV 2020 SPOHNMethod of Transportation: PARENTS WILL PICK UPPrimary Contact (name number): MOTHER CAROL ROYAL [phone],FATHER JEFFERY ROYAL [phone] Power of Hull Molder completed: NOMedical Decision Maker name/ number: MOTHER CAROL ROYAL [phone],FATHER JEFFERY ROYAL [phone] Plan discussed with/caregiver included: PATIENTAdditional Info: N/A ---HC M DISCHARGE PLANNING EVALUATION ----- -----Case Workers: Dana Brooks Status: Parent(s)Setting: Home- residenceADL Limits: None or n/aDME: NoneDependent Care: NonePatient Care: Parent - FATHER JEFFERY ROYAL - [phone] Parent - MOTHER CAROL ROYAL - [phone] Risk: None ApplicableHCM Discharge Planning User Bowman:Community Services Prior to Admission: None or NACurrent Mental Status/Cognition: Alert and OrientedPATIENT NAME: RAMAN BERNAL obtained from: PatientDischarge Barriers, select all that apply: None or NAReadmission (unplanned) in the last 30 days: NoPatient goals and preferences after discharge: HOMEBased on information gathered, is it likely that the patient's care needs canbe met in the environment from which he/she entered the hospital?: YesProposed Discharge Plan, select one: HomeHome Services needed: None or Mauricio a caregiver is needed, is there a caregiver available, willing and capableto provide care?: Not NeededCommunity services needed: NoneNew DME required at discharge: None or Mauricio new DME is required, is patient able to obtain DME?: Not ApplicableHome Modifications required: None or Mauricio home modifications are required, is patient able to obtain them?: NotApplicablePatient concerns about obtaining medications on day of discharge?: NoneTransportation needs at discharge: NONEDischarge Plan Discussed with: PatientHave you discussed with the patient how his/her care needs may change overtime?: Not ApplicablePatient/manufacturer representative agrees with discharge plan: YesDiscussed expected insurance coverage and/or out of pocket expenses: NotApplicableComments:: --Date / Time: 02/12/2024 12:16 PMEvaluated by: Joanne Brooks ===== ========PATIENT NAME: RAMAN BERNAL by: HIS MATILDA ([id number]) - 02/20/2024 12:12 PM ==PAT IENT NAME: JAQUAN BERNALW Emergency Encounter Reason:GENERALIZED PAIN Encounter Diagnosis:Other chronic pain,Dehydration,Type 2 diabetes mellitus with hyperglycemia,Type 2 diabetes mellitus with other specified complication,Osteomyelitis, unspecified,Essential (primary) hypertension,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,Blood alcohol level of 240 mg/100 ml or more,Alcohol abuse with intoxication, unspecified 10-Feb-2024 12:[id number] 17:54 [facility] Discharge Disposition:Discharged to home or self care (routine discharge) Bryn Verdugo MD-10-Feb-2024 [facility] PROVIDER REPORTREPORT#:[id number] REPORT STATUS: SignedDATE:02/10/24 TIME: 1243PATIENT: RAMAN BERNAL UNIT #: [id number]#: [id number] ROOM/BED:: 64 AGE: 58 SEX: M PCP PHYS: Walker Lui DOSERVICE AUTHOR: Kartik Clemente MDREP SRV REP SRV TM: 1243* ALL edits or amendments must be made on the electronic/computer document *HPI-General IllnessFree Text HPI NotesFree Text HPI [id number] male past medical history of diabetes, hypertension, highcholesterol, CABG, chronic pain, prior history of osteomyelitis presents to theemergency department for concerns of generalized pain and alcohol intoxication. Patient states that 2 weeks ago he stopped taking his opiate medication andhas been treating his pain with alcohol daily Reports that this morning he took alcohol tequila shot and mikes lemonadealcoholic drink.Currently reports generalized pain.No fever chills nausea vomiting diarrhea.History mildly limited due to patient participationGeneralInitial Greet Date/Time 02/10/24 1242PresentationChief Complaint __ (weak / High Glucose)Review of SystemsFree Text ROS NotesFree Text ROS NotesCONSTITUTIONAL: No fever, fatigue or weight loss.SKIN: No rash.HENT: No congestion, ear pain, or sore throat.EYES: No recent vision problems or eye pain.ENDOCRINE: No thyroid problems. No polyuria or polydipsia.CARDIOVASCULAR: No chest pain or edema.RESPIRATORY: No cough, shortness of breath, congestion, or wheezing.GASTROINTESTINAL: No abdominal pain, nausea, vomiting, bloody stools ordiarrhea.GENITOURINARY: No dysuria.MUSCULOSKELETAL: No joint pain or swelling. Positive generalized painLYMPHATIC: No swollen glands.NEUROLOGIC: No seizures. No headache, focal weakness or sensory changes.HEMATOLOGIC: No unusual bruising or bleeding.PSYCHIATRIC: No depression or anxiety.Past Medical History - AdultStated Complaint GENERALIZED PAINAllergiesCoded Allergies:No Known Allergies (11/20/22)Home MedicationsActive ScriptsIBUPROFEN (MOTRIN) 800 MG PO TID PRN PRN PAIN IBUPROFEN (MOTRIN) 800 MG PO TID PRN PRN PAIN #30 TABS Prov: 11/20/22LIDOCAINE (LIDODERM 5%) 1 PATCH TRANSDERM DAILY PRN Pain LIDOCAINE (LIDODERM 5%) 1 PATCH TRANSDERM DAILY PRN Pain #30 PATCHES Prov: 11/20/22methocarbamoL (ROBAXIN) 500 MG PO TID PRN PRN Muscle Pain methocarbamoL (ROBAXIN) 500 MG PO TID PRN PRN Muscle Pain #30 TABS Prov: 11/20/22CEPHALEXIN (KEFLEX) 500 MG PO Q12H CEPHALEXIN (KEFLEX) 500 MG PO Q12H #60 CAPS Prov: 07/29/23ONDanestron (ZOFRAN ODT) 8 MG PO Q12H PRN PRN NAUSEA/VOMITING ONDanestron (ZOFRAN ODT) 8 MG PO Q12H PRN PRN NAUSEA/VOMITING #15 TABS Prov: 07/29/23Reported MedicationsmetFORMIN 500 MG PO BIDPast Medical History:Reports: Coronary artery disease, Diabetes mellitus, Hypertension, Seizuredisorder, Ischemic stroke.Additional Medical HistoryOsteomyelitis May 12 continues on antibiotics. MN and CABG November 09 Dr wall of cardiologyPhysical ExamVital SignsVital SignsFirst Documented: Result Date Time Pulse Ox 99 02/09 1248 B/P 130/82 02/09 1248 B/P Mean 98 02/09 1248 O2 Delivery Room air 02/09 1248 Temp 36.9 02/09 1248 Pulse 94 02/09 1248 Resp 18 02/09 1248Last Documented: Result Date Time Pulse Ox 99 02/09 1257 B/P 130/82 02/09 1248 B/P Mean 98 02/09 1248 O2 Delivery Room air 02/09 1248 Temp 36.9 02/09 1248 Pulse 94 02/09 1248 Resp 18 02/09 1248Review of Vital Signs ReviewedFree Text PE NotesFree Text PE NotesGen: Well-appearing adult, appears stated age, NAD appears intoxicatedEyes: Pupils equal, responsive bilat.Resp: Even, non-labored.Musc/Sk: Ambulatory, steady gait. No obvious deformities.Skin: pink, warm, dry.Neuro: GCS 15, A Ox4.Psych: Calm, appropriate, conversant.Interpretation DiagnosticsLab Results InterpretationResultsLaboratory Tests02/10/24 1315:[Embedded Image Not Available]Laboratory Tests: 02/09 02/09 02/09 02/09 1640 1637 1445 1324Chemistry POC Glucose (65 - 99 MG/DL) 237 H Lactic Acid (0.5 - 2.2 MMOL/L) 3.8 HSerology SARS CoV-2 RNA Rapid JAIME Negative(Negative)Toxicology Urine Opiates Screen (NEGATIVE) NEGATIVE Ur Barbiturates Screen (NEGATIVE) NEGATIVE Ur Phencyclidine Scrn (NEGATIVE) NEGATIVE Ur Amphetamine Screen (NEGATIVE) NEGATIVE MDMA (NEGATIVE) NEGATIVE U Benzodiazepines Scrn (NEGATIVE) NEGATIVE Urine Cocaine Screen (NEGATIVE) NEGATIVE U Cannabinoids Screen (NEGATIVE) NEGATIVEUrines Ur Spec Description Clean Catch Urine Color (YELLOW) DARK YELLOW Urine Appearance (CLEAR) CLEAR Urine pH (5.5 - 7.0) 7.0 Ur Specific [place] (1.001 - 1.0101.035) Urine Protein (NEGATIVE mg/dL) NEGATIVE Urine Glucose (UA) (NEGATIVE 1000 Hmg/dL) Urine Ketones (NEGATIVE mg/dL) NEGATIVE Urine Blood (NEGATIVE) NEGATIVE Urine Nitrite (NEGATIVE) NEGATIVE Urine Bilirubin (NEGATIVE) 1+ H Urine Urobilinogen (NORMAL mg/dL) NORMAL Ur Leukocyte Esterase (NEGATIVE) NEGATIVE Urine WBC (<10 #/hpf) < 10 Ur Squamous Epith Cells (<100 60 - 80#/lpf) Urine Culture Screen Criteria not met Urine Comment VOLUME 10-12 ML 02/09 02/09 02/09 1320 1315 1315 Chemistry Sodium (133 - 145 MMOL/L) 133 Potassium (3.6 - 5.2 MMOL/L) 4.4 Chloride (100 - 108 MMOL/L) 94 L Carbon Dioxide (22 - 32 MMOL/L) 26 BUN (6 - 20 MG/DL) 18 Creatinine (0.60 - 1.00 MG/DL) 1.14 H Estimated GFR (MDRD) (56 - 130) 74 Glucose (65 - 99 MG/DL) 429 *H POC Glucose (65 - 99 MG/DL) 490 *H Lactic Acid (0.5 - 2.2 MMOL/L) 5.7 *H Calcium (8.7 - 10.5 MG/DL) 8.0 L Total Bilirubin (0.0 - 1.0 MG/DL) 7.1 H Direct Bilirubin (0.0 - 0.3 MG/DL) 4.3 H Indirect Bilirubin (0.0 - 0.7 MG/DL) 2.8 H AST (15 - 37 Units/L) 531 H ALT (30 - 65 Units/L) 394 H Alkaline Phosphatase (50 - 136 Units/L) 337 H Troponin I High Sens (< 76 ng/L) 45 Total Protein (6.4 - 8.2 G/DL) 5.5 L Albumin (3.4 - 5.0 G/DL) 2.5 L Globulin (1.5 - 3.8 G/DL) 3.0 Albumin/Globulin Ratio (1.1 - 2.2) 0.8 L Hematology WBC (4.80 - 10.80 x10 3/uL) 6.04 RBC (4.7 - 6.1 x10 6/uL) 4.60 L Hgb (14.0 - 17.0 G/DL) 14.2 Hct (42 - 52 %) 39.7 L MCV (80 - 94 FL) 86.3 MCH (27 - 31 PG) 30.9 MCHC (33 - 37 G/DL) 35.8 RDW Coeff of Carmenza (11.5 - 14.5 %) 18.6 H Plt Count (150 - 450 x10 3/uL) 132 L MPV (7.4 - 10.4 FL) 10.9 H Neut % (Auto) (42 - 86 %) 52.7 Lymph % (Auto) (24 - 44 %) 36.1 Glasscock % (Auto) (0.0 - 4.0 %) 10.8 H Eos % (Auto) (0.0 - 2.7 %) 0.2 Baso % (Auto) (0.0 - 0.5 %) 0.2 Eos # (Auto) (0.0 - 0.5 x10 3/uL) 0.01 Baso # (Auto) (0.0 - 0.2 x10 3/uL) 0.01 Absolute Neuts (auto) (1.8 - 7.7 x10 3/uL) 3.19 Absolute Lymphs (auto) (1.0 - 4.8 x10 3/uL) 2.18 Absolute Monos (auto) (0.0 - 0.8 x10 3/uL) 0.65 Miscellaneous Miscellaneous Test Called Toxicology Ethyl Alcohol (0 - 10 MG/DL) 260 HMicrobiology: Date/Time Procedure - Status Source Growth 02/09 1324 Influenza Virus Type B Antigen - COMP NASOPHARG 02/09 1324 Influenza Virus Type A Antigen - COMP NASOPHARGRecent Impressions:RADIOLOGY - XR CHEST 1 V 02/09 1346 Report Impression - Status: SIGNED Entered: 02/10/2024 1355IMPRESSION:No acute cardiopulmonary disease process.Electronically signed by: Omer Salmon MD 02/10/2024 01:53 PMCST RP Workstation: [id number] By: Elba - Omer Salmon, MDCAT SCAN - CT ABD PELVIS W/CONT 02/09 1535 Report Impression - Status: SIGNED Entered: 02/10/2024 1603IMPRESSION:CT ABDOMEN: Gastric wall thickening, likely gastritisMild colonic wall thickening, which could representunderdistention or colitisCT PELVIS: Normal appendix One or more of the following dose-optimizing techniques wasutilized for this exam: automated exposure control, adjustmentof the mA and/or kV according to patient size and/or use ofiterative reconstruction technique.Electronically signed by: Josue Meredith MD 02/10/2024 04:01PM [facility] RP [id number] By: - Josue Meredith, MDRe- Evaluation MDMFree Text MDM NotesFree Text MDM [id number] male past medical history of diabetes, hypertension, highcholesterol, CABG, chronic pain, prior history of osteomyelitis presents to theemergency department for concerns of generalized pain and alcohol intoxication.-At this time will order fluids Basic lab work including drug screen and alcohol level Will order flu and COVID swab as well.Re-Evaluation/Progress #1Text/Dict NoteSignificant improvement in lactic acid levels Significant improvement in glucose levelsConsistent with uncontrolled diabetes masturbation, alcoholism.CT scan of the pelvis unremarkableWill be discharged at this time with strict return precautionsPatient clinically sober, alert oriented x 3.ED CourseMedication(s) OrderedMedication(s) Ordered:Central Nervous System Agents Sig/Darshana Start time Last Medication Dose Route Stop Time Status Admin Hydrocodone Bitart/ 1 TAB X1ED STA 02/09 1346 DC 02/09 Acetaminophen PO 02/09 1347 1426Diagnostic Agents Sig/Darshana Start time Last Medication Dose Route Stop Time Status Admin Iopamidol 100 ML .STK-MED ONE 02/09 1547 DC 02/09 IV 02/09 1548 1547Electrolytic, Caloric, And Lety Sig/Darshana Start time Last Medication Dose Route Stop Time Status Admin Sodium Chloride 1,000 ML X1ED STA 02/09 1439 DC 02/09 IV 02/09 1538 1440 Sodium Chloride 1,000 ML X1ED STA 02/09 1250 DC 02/09 IV 02/09 1349 1328Hormones And Synthetic Substit Sig/Darshana Start time Last Medication Dose Route Stop Time Status Admin Insulin Human Regular 5 UNIT X1ED STA 02/09 1435 DC 02/09 IV 02/09 1436 1444Patient Discharge DepartureVital Signs/ConditionVital SignsFirst Documented: Result Date Time Pulse Ox 99 02/09 1248 B/P 130/82 02/09 1248 B/P Mean 98 02/09 1248 O2 Delivery Room air 02/09 1248 Temp 36.9 02/09 1248 Pulse 94 02/09 1248 Resp 18 02/09 1248Last Documented: Result Date Time Pulse Ox 99 02/09 1257 B/P 130/82 02/09 1248 B/P Mean 98 02/09 1248 O2 Delivery Room air 02/09 1248 Temp 36.9 02/09 1248 Pulse 94 02/09 1248 Resp 18 02/09 1248All vital signs available at the time of this entry have been reviewed.Condition Stable, ImprovedClinical ImpressionClinical ImpressionPrimary Impression: Alcohol intoxicationSecondary Impressions: Chronic pain, DehydrationDisposition DecisionDischarge )( Discharged to Home Yes )( Time 1734 )( Date 02/10/24Discharge/Care PlanCounseled Regarding Diagnosis, Lab results, Imaging studies, Need for follow-up,When to return to EDPatient Instructions ED Alcohol Intoxication, ED Chronic PainReferralsProvider Referral: Cristian Lancaster DO Follow-Up: Call for appointment Notes: OR follow with your PCP Address: [address] [place] [address] [address] [address] Discharge NoteI have spoken with the patient and/or caregivers. I have explained the patient'scondition, diagnoses and treatment plan based on the information available to meat this time. I have answered the patient's and/or caregiver's questions andaddressed any concerns. The patient and/or caregivers have as good anunderstanding of the patient's diagnosis, condition and treatment plan as can beexpected at this point. The vital signs have been stable. The patient'scondition is stable and appropriate for discharge from the emergency department.The patient will pursue further outpatient evaluation with the primary carephysician or other designated or consulting physician as outlined in thedischarge instructions. The patient and/or caregivers are agreeable to this planof care and follow-up instructions have been explained in detail. The patientand/or caregivers have received these instructions in written format and haveexpressed an understanding of the discharge instructions. The patient and/orcaregivers are aware that any significant change in condition or worsening ofsymptoms should prompt an immediate return to this or the closest emergencydepartment or a call to 911. at 1740RPT #:[id number] OF REPORT Emergency Encounter Reason:CHEST PAIN Encounter Diagnosis:Alcohol abuse with intoxication, unspecified,Hypertensive urgency,Essential (primary) hypertension,Type 2 diabetes mellitus with other specified complication,Other chronic osteomyelitis, other site,Other chronic pain,USP (current) use of oral hypoglycemic drugs,Blood alcohol level of 100-119 mg/100 ml,Other chest pain 21-Jan-2024 [id number] 18:00 [facility] Discharge Disposition:Discharged to home or self care (routine discharge) Randimimi Malloy PD-2-Pbr21-Jan-2024 [facility] ([facility])OR [facility] PROVIDER REPORTREPORT#:[id number] REPORT STATUS: SignedDATE:01/21/24 TIME: 1534PATIENT: JAQUAN BERNALW UNIT #: [id number]#: [id number] ROOM/BED:: 64 AGE: 58 SEX: M PCP PHYS: Walker Lui AUTHOR: Mellissa Kahn [facility] TM: 1534* ALL edits or amendments must be made on the electronic/computer document *HPI-General IllnessFree Text HPI NotesFree Text HPI NotesPatient is a 58-year-old male who comes to the emergency department for elevatedblood pressure and chest pain. Initially triaged as his chest pain the same [place] last summer however now states that it seems a little different and isnot nearly as severe. He woke up this morning approximately 8 AM and found thathis blood pressure was elevated in the range of 205/111. He did take hismorning medications. He started having some chest pain at that time associatedwith diarrhea. The pain has been intermittent throughout the morning. He wentto see his primary care provider who told him he said he was okay. After cominghome from his doctor's office he drink a mikes hard lemonade to try to relievethe remainder of the pain. Over the last 2 hours his chest pain has been moreconsistent and intense so he decided to come to the emergency department. Thepatient also has a history of having osteomyelitis in his spine the first partof this year. He is still on antibiotics for that. The patient has recentlydecided he is tired of taking pain pills and is getting off of his prescribedmorphine from the pain clinic. He quit taking it 2 weeks ago. He does notthink that his chest pain elevated blood pressure and diarrhea could bewithdrawal symptoms. He said he would have gone through that 2 weeks ago. Hesays he knows what withdrawal feels like because he has done that many timeswhen he is overused his pain medications and run out early throughout the years. He denies fevers. He is chronic back pain which is hurting since he is nolonger taking the morphine and would like to have something for that. He doesnot have any new falls injuries or neurodeficits. He is still currently on hischronic antibiotics related to the osteomyelitis.The patient's said that the patient is tired of being sick and he wants toget off of taking 20 pills every day. When he was at his primary's office todaythey noted to his medication usage and said that he was not taking 2 meds thatwere important for his heart. She does not know the name of them. He was alsotold that he is vulnerable for another heart attack as there are 2 other vesselswith blockages.GeneralInitial Greet Date/Time 01/21/24 1510PresentationChief Complaint Chest painReview of SystemsFree Text ROS NotesFree Text ROS NotesAll other systems reviewed and negative except as documented above in the HPIPast Medical History - AdultStated Complaint CHEST PAINAllergiesCoded Allergies:No Known Allergies (11/20/22)Home MedicationsActive ScriptsIBUPROFEN (MOTRIN) 800 MG PO TID PRN PRN PAIN IBUPROFEN (MOTRIN) 800 MG PO TID PRN PRN PAIN #30 TABS Prov: 11/20/22LIDOCAINE (LIDODERM 5%) 1 PATCH TRANSDERM DAILY PRN Pain LIDOCAINE (LIDODERM 5%) 1 PATCH TRANSDERM DAILY PRN Pain #30 PATCHES Prov: 11/20/22methocarbamoL (ROBAXIN) 500 MG PO TID PRN PRN Muscle Pain methocarbamoL (ROBAXIN) 500 MG PO TID PRN PRN Muscle Pain #30 TABS Prov: 11/20/22CEPHALEXIN (KEFLEX) 500 MG PO Q12H CEPHALEXIN (KEFLEX) 500 MG PO Q12H #60 CAPS Prov: 07/29/23ONDanestron (ZOFRAN ODT) 8 MG PO Q12H PRN PRN NAUSEA/VOMITING ONDanestron (ZOFRAN ODT) 8 MG PO Q12H PRN PRN NAUSEA/VOMITING #15 TABS Prov: 07/29/23Reported MedicationsmetFORMIN 500 MG PO BIDPast Medical History:Reports: Coronary artery disease, Diabetes mellitus, Hypertension, Seizuredisorder, Ischemic stroke.Additional Medical HistoryOsteomyelitis May 12 continues on antibiotics.[place] and CABG November 09 Dr wall of cardiologyPhysical ExamVital SignsVital SignsFirst Documented: Result Date Time Pulse Ox 99 01/20 1513 B/P 157/83 01/20 1513 B/P Mean 107 01/20 1513 O2 Delivery Room air 01/20 151 Temp 98.4 01/20 151 Pulse 109 01/20 1513 Resp 20 01/20 1513Last Documented: Result Date Time Pulse Ox 98 01/20 1731 B/P 142/74 01/20 1731 B/P Mean 96 01/20 1731 O2 Delivery Room air 01/20 1731 Pulse 83 01/20 1731 Resp 15 01/20 1731 Temp 98.4 01/20 1513Review of Vital Signs ReviewedFree Text PE NotesFree Text PE NotesPhysical examConstitutional: Oriented to person place and time, appears well but seemsanxiousHead: Normocephalic/atraumaticENT: External ears are normalMOUTH: Mucous membranes moistThroat: No drooling or stridorNeck: Supple, trachea midlineCardiovascular: Intact distal pulses, extremities warm and well-perfused,regular no murmur rub EXTR gallops appreciatedPulmonary/chest: Normal respiratory effort, nonlabored, clear nonlaboredAbdomen: Soft, normal appearing, nontenderMusculoskeletal: Moves all extremities, no gross deformity, symmetric nontenderNeurological: Alert, conversant, follows commands, moves all extremities, nogross focal abnormalitiesSkin: Warm dry and intactPsychiatric: Cooperative, normal affectInterpretation DiagnosticsLab Results InterpretationResultsLaboratory Tests01/21/24 1528:[Embedded Image Not Available]Laboratory Tests: 01/20 01/20 1701 1528 Chemistry Sodium (133 - 145 MMOL/L) 141 Potassium (3.6 - 5.2 MMOL/L) 3.5 L Chloride (100 - 108 MMOL/L) 105 Carbon Dioxide (22 - 32 MMOL/L) 23 BUN (6 - 20 MG/DL) 9 Creatinine (0.60 - 1.00 MG/DL) 1.12 H Estimated GFR (MDRD) (56 - 130) 76 Glucose (65 - 99 MG/DL) 248 H Calcium (8.7 - 10.5 MG/DL) 8.5 L Magnesium (1.8 - 2.4 MG/DL) 1.7 L Total Bilirubin (0.0 - 1.0 MG/DL) 0.4 Direct Bilirubin (0.0 - 0.3 MG/DL) 0.1 Indirect Bilirubin (0.0 - 0.7 MG/DL) 0.3 AST (15 - 37 Units/L) 39 H ALT (30 - 65 Units/L) 42 Alkaline Phosphatase (50 - 136 Units/L) 120 Troponin I High Sens (< 76 ng/L) 27 27 NT-Pro-B Natriuret Pep (0 - 125 PG/ML) 1148 H Total Protein (6.4 - 8.2 G/DL) 6.8 Albumin (3.4 - 5.0 G/DL) 3.3 L Globulin (1.5 - 3.8 G/DL) 3.5 Albumin/Globulin Ratio (1.1 - 2.2) 0.9 L Lipase (16 - 77 U/L) 14 L Coagulation PT (9.9 - 13.2 SECONDS) 12.7 INR 1.14 Hematology WBC (4.80 - 10.80 x10 3/uL) 8.51 RBC (4.7 - 6.1 x10 6/uL) 4.33 L Hgb (14.0 - 17.0 G/DL) 13.0 L Hct (42 - 52 %) 39.6 L MCV (80 - 94 FL) 91.5 MCH (27 - 31 PG) 30.0 MCHC (33 - 37 G/DL) 32.8 L RDW Coeff of Carmenza (11.5 - 14.5 %) 16.2 H Plt Count (150 - 450 x10 3/uL) 229 MPV (7.4 - 10.4 FL) 9.8 Neut % (Auto) (42 - 86 %) 66.5 Lymph % (Auto) (24 - 44 %) 24.7 Glasscock % (Auto) (0.0 - 4.0 %) 7.6 H Eos % (Auto) (0.0 - 2.7 %) 0.5 Baso % (Auto) (0.0 - 0.5 %) 0.7 H Eos # (Auto) (0.0 - 0.5 x10 3/uL) 0.04 Baso # (Auto) (0.0 - 0.2 x10 3/uL) 0.06 Absolute Neuts (auto) (1.8 - 7.7 x10 3/uL) 5.66 Absolute Lymphs (auto) (1.0 - 4.8 x10 3/uL) 2.10 Absolute Monos (auto) (0.0 - 0.8 x10 3/uL) 0.65 Toxicology Ethyl Alcohol (0 - 10 MG/DL) 119 HRecent Impressions:RADIOLOGY - XR CHEST 1 V 01/20 1540 Report Impression - Status: SIGNED Entered: 01/21/2024 1602IMPRESSION:Findings suggestive of mild CHF exacerbation/fluid overload.Electronically signed by: Mauricio Ascencio MD 01/21/2024 04:00 [facility] Workstation: [id number] By: - Mauricio Ascencio, MDRe-Evaluation MDMFree Text MDM NotesFree Text MDM NotesPatient is a 58-year-old male who presents with chest pain and elevated bloodpressure. He also complains of chronic back pain after being off of his chronicpain medications. The patient is seen his primary care provider today for this. He also went home and drink mikes hard lemonade to manage his chest pain. Hispartial differential diagnosis does include acute coronary syndrome,hypertensive emergency versus urgency, anxiety, alcohol intoxication,pancreatitis, CHF doubt aneurysm PE or spinal cord injury. No sign ofinfectious etiology.He has been having chest pain throughout the day. His EKG shows no acuteischemic injury pattern his 2 troponins are negative. BNP is slightly elevatedwith some mild edema on his chest x-ray. Patient however is breathingcomfortably laying supine.He seemed very anxious and was medicated with Ativan. This resolved hissymptoms. His pain is gone his blood pressures normalized.Other labs shows potassium is slightly low.No think this represents an acute coronary event today. Think it could berelated to withdrawal from his opioids or anxiety.ED CourseMedication(s) OrderedMedication(s) Ordered:Central Nervous System Agents Sig/Darshana Start time Last Medication Dose Route Stop Time Status Admin Lorazepam 1 MG X1ED STA 01/20 1534 DC 01/20 IV 01/20 1535 1541 Aspirin 324 MG X1ED STA 01/20 1532 DC 01/20 PO 01/20 1533 1541Electrolytic, Caloric, And Lety Sig/Darshana Start time Last Medication Dose Route Stop Time Status Admin Furosemide 80 MG X1ED STA 01/20 1727 DC IV 01/20 1728 Potassium 40 MEQ X1ED STA 01/20 1727 DC Bicarbonate/Citric PO 01/20 1728 AcidMDM-Independent InterpretationMy ECG InterpretationSinus tachycardia rate of [address] segment T wave changes no STEMI Qwaves inferiorly no ectopy QTc is 464Patient Discharge DepartureVital Signs/ConditionVital SignsFirst Documented: Result Date Time Pulse Ox 99 01/20 1513 B/P 157/83 01/20 1513 B/P Mean 107 01/20 1513 O2 Delivery Room air 01/20 1513 Temp 98.4 01/20 1513 Pulse 109 01/20 1513 Resp 20 01/20 1513Last Documented: Result Date Time Pulse Ox 98 01/20 1731 B/P 142/74 01/20 1731 B/P Mean 96 01/20 1731 O2 Delivery Room air 01/20 1731 Pulse 83 01/20 1731 Resp 15 01/20 1731 Temp 98.4 01/20 1513All vital signs available at the time of this entry have been reviewed.Clinical ImpressionClinical ImpressionPrimary Impression: Chest painSecondary Impressions: Alcohol intoxication, Hypertensive urgencyDisposition DecisionDischarge )( Discharged to Home Yes )( Time 1745 )( Date 01/21/24Discharge/Care PlanCounseled Regarding Diagnosis, Lab results, Imaging studies, Need for follow-up,When to return to EDPatient Instructions ED Chest Pain, Uncertain Cause, ED Hypertension,Established, Ethanol (Blood)Additional InstructionsFollow-up with your primary doctor tomorrow for recheck. Return to the ER forrecurrent symptoms change or worsening of your condition. at 0530RPT #:[id number] OF REPORT Plan of Treatment Future Tests Future scheduled test information is unavailable Pending Tests Pending diagnostic test information is unavailable Future Visits Future appointment information is unavailable Referrals to Other Providers Reason for Referral Referral Start Date Provider Provider Contact Information Provider Address Walker Lui MD Work Phone: [phone] [facility]. [facility] [address] Future Procedures Future procedure information is unavailable Future Medications Future medication information is unavailable Patient Instructions Instruction Admit Date Social Drinking vs Problem Drinking September 11, 2024 3:26am What Is Angina September 11, 2024 3:26 am Diabetes and Drinking Alcohol September 09, 2024 12:15pm Pain Management Opioids September 09, 2024 12:15pm Managing Chronic Pain September 09, 2024 12 :15pm High Blood Sugar (Hyperglycemia) September 042024 3:11pm AFib Dc September 04, 2024 3:11 pm ED Noncardiac Chest Pain August 30, 2024 1:16am Having Cardiac Catheterization August 25, 2024 10:28pm Alcohol Addiction August 25, 2024 10:28 pm Goals Acute Goals Standards of Practice will b e met See Health Plan of Care See Health Plan of Care See Health Plan of Care See Health Plan of Care See Health Plan of Care Assessments Diagnosis Onset Date Resolution Status Admit Date Chest pain Active September 11 3:26am
--- OUTSIDE RECORDS SUMMARY | 2024-09-26 02:56 | XMS_ITS | Patient Health Record ---
Author Organization [facility] Iq[facility] Address [address] [place] [address] Care Team Providers Care Medical Videographer Name Role Phone LINDA STACY Unavailable [phone] Josue Mena Unavailable [phone] ZOË LIRIANO Unavailable [phone] Allergies No Known Allergies Reason For Referral No Information Medications Medication SIG (Take, Route, Frequency, Duration) Notes Start Date End Date Status Carvedilol 3.125 MG 1 tablet with food Orally Twice a day Active Nitrostat 0.4 MG as directed Sublingual Active Morphine Sulfate 30 MG 1 tablet as neede d Orally every 4 hrs Active Pantoprazole Sodium 40 MG 1 tablet Orall y Once a day Active Folic Acid 1 MG 1 tablet Orally Once a day Active Ondansetron 4 MG 1 tablet on the tong ue and allow to dissolve Orally Once a day Active Ferrous Sulfate 325 (65 Fe) MG 1 tablet Orally Three times a Week Active levETIRAcetam 250 MG 1 tablet Orally leonardo ry 12 hrs Active Atorvastatin Calcium 40 MG 1 tablet Oral ly Once a day Active Amiodarone HCl 200 MG 1 tablet Orally On ce a day Active Cephalexin 500 MG 1 capsule Orally leonardo ry 6 hrs Active Plavix 75 MG 1 tablet Orally Once a day Active Aspirin 81 MG 1 tablet Orally Once a day Active metFORMIN HCl 500 MG 1 tablet with a madhavi l Orally Once a day Active Empagliflozin 10 MG 1 tablet Orally Once a day Active Cholecalciferol 125 MCG (5000 UT) 1 capsule Orally Once a day Active Furosemide 20 MG 1 tablet Orally Once a day Active Dulaglutide 0.75 MG/0.5ML as directed Subcutaneous Active Thiamine Mononitrate 100 MG 1 tablet Ora lly Once a day Active Dicyclomine HCl 20 MG 1 tablet Orally Th ree times a day Active Senokot S 8.6-50 MG 1 tablet as needed Orally Twice a day Active Social History Tobacco Use: Social History Observation Description Date Details (start date - stop date) Current Smoker NA - NA Tobacco Use/Smoking Question Answer Notes Are you a current every day smoker Problems Problem Type SNOMED Code ICD Code Onset Dates Problem Status W/U Status Risk Notes Problem Atherosclerotic heart disease of [place] coronary artery without angina pectoris ([id number]) Atherosclerotic heart disease of [place] coronary artery without angina pectoris (I25.10) Active confirmed Problem Pure hypercholesterolem ia, unspecified (E78.00) Active confirmed Encounters Encounter Location Date Provider Diagnosis [facility] [address] [place] [address] 12/10/2023 ZOË LIRIANO Atherosclerotic hear t disease of [place] coronary artery without angina pectoris I25.10 and Presence of aortocoronary bypass graft Z95.1 Assessments Encounter Date Diagnosis (ICD Code) Assessment Notes Treatment Notes Treatment Clinical Notes Section Notes 12/10/2023 Atherosclerotic heart disease of [place] coronary artery without angina pectoris (ICD-10 - [...] activity after sixth week. Plan Of Treatment No Information Insurance Providers Payer Name Payer Address Payer Phone Subscriber Number Group Number Insured Name Patient Relationship to Insured Coverage Start Date Coverage End Date [facility] [address] [address] [place] [phone] [id number] RAMAN BERNAL Self - patient is the insured Medical (General) History Medical History History ICD Code anemia CAD cocaine abuse diabetes type 2 ETOH abuse HLD HTN heart failure discitis lumbar region seizure NSTEMI Surgical History Surgery Date(Month/Year) CABG - Dr. Stacy 11/14/2023
--- NOTE | 2024-09-26 03:23 | ED_ITS ---
HPI - Chest Pain General Chief Complaint: Chest Pain Stated Complaint: chest pain x 2 hours Time Seen by Provider: 09/26/24 01:07 History of Present Illness HPI narrative: Patient is a 5-year-old male who presents to the emergency department this evening complaining of substernal chest pain radiating to his left arm. Patient does have a history of coronary artery disease and had a CABG performed last October. Patient did present to the emergency department by EMS and upon arrival they did notice that he was in SVT. He stated that the pain started 2 hours ago. Patient admits that he did drink a full bottle of vodka. EMS did administered 6 mg of adenosine with no improvement of his symptoms. Related Data Allergies Allergy/AdvReac Type Severity Reaction Status Date / Time No Known Allergies Allergy Verified 09/26/24 01:03 Review of Systems 2 Review of Systems: All systems are reviewed and are negative unless stated otherwise in the HPI. Exam 2 Narrative: General: Alert, awake, afebrile, appears to be intoxicated. HEENT: PERRL, no rhinorrhea, no post nasal drip, oropharynx clear. Neck: Trachea midline, no JVD, no lymphadenopathy. Cardiovascular: Sinus tachycardia with regular rhythm, no murmurs, rubs or gallops, no peripheral edema. Respiratory: Clear to auscultation bilaterally, no tachypnea, no wheezing, no rhonchi, no rubs, no respiratory distress. Abdomen: Soft, nontender, nondistended, no rebound, no guarding, no peritoneal signs. Musculoskeletal: No joint swelling or deformity, normal muscle tone. Skin: No rashes or petechia, no signs of infection. Psychiatric: Alert and oriented, normal behavior and judgment for situation. Neurological: Alert and oriented to person, place, and time. Follows all commands. No focal deficits, speech is clear and fluent. Course Vital Signs Vital signs: Vital Signs Temperature 98.1 F 09/26/24 00:50 Pulse Rate 180 H 09/26/24 00:50 Respiratory Rate 17 09/26/24 00:50 Blood Pressure 86/62 L 09/26/24 00:50 Temperature 98.1 F 09/26/24 00:50 Pulse Rate 180 H 09/26/24 00:50 Respiratory Rate 17 09/26/24 00:50 Blood Pressure 86/62 L 09/26/24 00:50 Pulse Oximetry 97 07/11/25 01:17 Oxygen Delivery Room Air 09/26/24 01:17 MDM - Chest Pain MDM Narrative Medical decision making narrative: The patient was evaluated by myself in the emergency department. History is obtained from patient who is an independent historian and physical exam was performed. External medical records were reviewed at this time. IV was established pertinent laboratory and imaging results were ordered at this time. Patient was administered a full dose oral chewable aspirin. Valsalva maneuver was attempted 2 times with no success, patient was administered 12 mg of IV adenosine with improvement of his symptoms he is now in sinus rhythm. Initial EKG was obtained which revealed SVT at a rate of 179 beats per minute EKG was independently interpreted by me and is currently pending official cardiology read. Repeat EKG obtained after adenosine revealed sinus tachycardia rate of 105 beats per minute. Patient states that he does feel better. No ST changes or evidence of acute ischemia. EKG currently pending official cardiology read. Patient continues to have chest pain although he states that it is better after the adenosine. Laboratory results obtained revealing no acute process. Initial troponin noted to be negative at 0.026. Patient's 3 hour troponin was noted to be elevated at 0.232. At this time patient was started on a heparin drip and bolus for NSTEMI. Imaging studies obtained included CXR which was independently interpreted by me revealing no acute cardiopulmonary process, which is pending final radiology interpretation. Differential diagnosis considerations include dehydration, electrolyte derangements, alcohol intoxication, acute viral syndrome, acute coronary syndrome. Comorbidities impacting this visit include history of triple bypass surgery. I have evaluated and discussed social determinants of health with the patient that could potentially impact subsequent diagnosis and treatment plans. On repeat assessment of the patient, reevaluation revealed that the patient is doing well and is in no acute distress. Patient symptoms have improved since he arrived to our emergency department. Repeat vital signs were all reviewed and noted to be stable. Differential diagnosis and treatment plan were discussed with the patient at bedside. Patient agrees with discussion and after shared medical decision making agrees with admission. All questions were answered to the patient's satisfaction. Critical care time of 50 minutes, exclusive of separately performed procedures, necessary for treating or preventing eminent or life-threatening deterioration of patient's condition of SVT and NSTEMI requiring IV heparin infusion, focused on patient care provided personally by me and time spent during initial evaluation, physical examination, ordering and performing treatments and interventions, ordering and reviewing laboratory studies, ordering and reviewing radiographic studies, re-evaluation of the patient's condition, evaluation of the patient's response to treatment, and discussion of patient case with consultants/admitting provider. Lab Data 09/26/24 01:19 09/26/24 01:19 Labs: Lab Results 09/26/24 09/26/24 Range/Units 01:19 04:19 WBC 7.6 (4.5-10.0) K/mm3 RBC 3.82 L (4.6-6.20) M/mm3 Hgb 12.4 L (14.0-18.0) g/dL Hct 38.8 L (42.0-52.0) % MCV 101.6 H (80-100) fl MCH 32.5 (26-34) pg MCHC 32.0 (32-36) g/dl RDW 15.8 H (11.5-14.5) % Plt Count 112 L (150-375) k/mm3 MPV 10.0 (7.4-10.4) fl Immature Gran % (Auto) 0.5 (0-0.5) % Neut % (Auto) 54.6 (45.5-73.1) % Lymph % (Auto) 31.9 (18.3-44.2) % [place] % (Auto) 10.8 H (2.6-8.5) % Eos % (Auto) 1.8 (0-4.4) % Baso % (Auto) 0.4 (0.2-1.2) % Lymph # (Auto) 2.43 (0.9-3.2) K/mm3 [place] # (Auto) 0.8 H (0.1-0.6) K/mm3 Eos # (Auto) 0.1 (0-0.3) K/mm3 Baso # (Auto) 0.0 (0.0-0.1) K/mm3 Abs Immat Gran (auto) 0.04 H (0.00-0.031) K/mm3 Absolute Neuts (auto) 4.2 (1.3-6.7) K/mm3 Absolute Nucleated RBC 0.000 (0.0-0.012) K/mm3 Nucleated RBC % 0.0 (0.0-0.2) % % Immature Plt Fraction 3.3 (0.9-11.2) % PT 13.2 (11.1-14.7) Seconds INR 1.0 APTT 25.6 (22.3-36.8) Seconds Sodium 144 (137-145) mmol/L Potassium 4.0 (3.4-5.0) mmol/L Chloride 109 H (98-107) mmol/L Carbon Dioxide 25 (22-30) mmol/L Anion Gap 10 (4-12) mmol/L BUN 9 (9-20) mg/dL Creatinine 1.03 (0.7-1.3) mg/dL Estim Creat Clear Calc 68 ml/min Estimated GFR > 60 (59 - ) Glucose 392 H (65-110) mg/dL Calcium 9.0 (8.4-10.2) mg/dL Magnesium 1.9 (1.6-2.3) mg/dL Total Bilirubin 0.3 (0.2-1.3) mg/dL AST 104 H (17-59) U/L ALT 50 (6-50) U/L Alkaline Phosphatase 135 H (38-126) U/L Troponin I 0.026 0.232 H* D (0.000-0.034) ng/mL Total Protein 6.7 (6.3-8.2) g/dL Albumin 3.9 (3.5-5.1) g/dL Lipase 144 (23-300) U/L Ethyl Alcohol 185 (<10) mg/dL Critical Care Time Critical Care Time Critical Care Time: Yes Total Critical Care Time: 60 (Please refer to [facility] for attestation) Discharge Plan Discharge Clinical Impression: Supraventricular tachycardia, Chest pain, NSTEMI (non-ST elevation myocardial infarction) Patient Disposition: Still a Patient Condition: Improved Patient Language: [place] Follow-up/Referrals: UNKNOWN,DOCTOR [Primary Care Provider] - Time of Disposition: 03:30
[2024-09-26] MEDS: ASPIRIN 81 MG CHEWABLE TABLET 324 MG PO (04:12)
[2024-09-26 04:51] LABS: Troponin I 0.232 ng/mL (0.000-0.034)
--- NOTE | 2024-09-26 04:52 | ECG_ITS ---
Test Date: 2024-09-26 04:58:11 Measurements Intervals [place] Rate: 87 P: 48 MO: 160 QRS: -2 QRSD: 89 T: 61 QT: 383 QTc: 462 Interpretive Statements SINUS RHYTHM LOW QRS VOLTAGE IN PRECORDIAL LEADS [QRS DEFLECTION < 1.0 mV IN CHEST LEADS] POSSIBLE ANTERIOR MYOCARDIAL INFARCTION , PROBABLY OLD [30 ms Q WAVE IN V3/V4, OR R < 0.2 mV IN V4] INFERIOR MYOCARDIAL INFARCTION , PROBABLY OLD [40+ ms Q WAVE AND/OR ST/T ABNORMALITY IN II/aVF] Compared to ECG 09/26/2024 01:08:36 Low QRS voltage now present Sinus tachycardia no longer present Myocardial infarct finding still present Electronically Signed On 09-26-2024 07:06:31 CDT by Emiliano Parr M.D.
[2024-09-26] MEDS: HEPARIN SOD/D5W 100 UNITS/ML 25,000 UNITS/250 ML BAG 9 UNITS IV CONT (05:33)
--- NOTE | 2024-09-26 07:05 | ADMGEN ---
This patient, Marcel Spencer, was admitted to IMU Room 205-01 on 09/26/2024 at 0703. Patient/family oriented to hospital policies and general routines including ID bracelet, bed and alarms, visiting hours, pain management, procedures, bathroom and other care routines, personal items, smoking policy, room service/diet, and visiting hours. Information on how to activate the Rapid Response Team has been discussed. Patient/Family are encouraged to report perceived risks to care and to ask questions if they do not understand what they are told or what they should do.
--- NOTE | 2024-09-26 07:06 | ECG_ITS ---
Test Date: 2024-09-26 00:57:34 Measurements Intervals [place] Rate: 179 P: 0 NC: 0 QRS: 7 QRSD: 104 T: 79 QT: 256 QTc: 442 Interpretive Statements SUPRAVENTRICULAR TACHYCARDIA, POSSIBLE ATRIAL FLUTTER INCOMPLETE RIGHT BUNDLE BRANCH BLOCK ST DEPRESSION, CONSIDER SUBENDOCARDIAL INJURY Electronically Signed On 09-26-2024 11:06:19 CDT by Lj Lew D.O
[2024-09-26 07:47] LABS: Hematocrit 35.1 % (42.0-52.0); Hemoglobin 11.4 g/dL (14.0-18.0); Immature Granulocyte Percent A 0.5 % (0-0.5); Lymphocytes Absolute Auto 2.28 K/mm3 (0.9-3.2); Mean Corpuscular HGB Conc 32.5 g/dl (32-36); Mean Corpuscular Hemoglobin 32.8 pg (26-34); Mean Corpuscular Volume 100.9 fl (80-100); Nucleated Red Blood Cells Absolute Auto 0.000 K/mm3 (0.0-0.012); Nucleated Red Blood Cells Perc 0.0 % (0.0-0.2); Platelet Count Result 99 k/mm3 (150-375); Red Blood Count 3.48 M/mm3 (4.6-6.20); White Blood Count 6.2 K/mm3 (4.5-10.0)
[2024-09-26 08:25] LABS: Troponin I 0.583 ng/mL (0.000-0.034)
[2024-09-26 08:49] LABS: INR 1.0; Prothrombin Time 13.6 Seconds (11.1-14.7)
[2024-09-26 08:52] LABS: Partial Thromboplastin Time 149.6 Seconds (22.3-36.8)
--- NOTE | 2024-09-26 09:27 | PM.IMHP ---
H&P: HPI History of Present Illness Date/Time: 09/26/24 09:27 Chief Complaint: Chest Pain Narrative: CT years old gentleman with history of CAD, CABG, alcohol dependent, present ED with a chief complaint of chest pain. Patient started have left chest pain yesterday evening, radiating to left arm. EMS was called, patient was found have SVT. Patient drank 4 bottles focal yesterday. EMS provide 6 mg adenosine but no improvement. Patient was brought to ED for evaluation treatment. Patient feels generally echo, lightheaded, denies focal weakness, vision change, slurred speech, patient also denies fever or chills dysuria. Upon arrival to ED, patient found have tachycardia, heart rate 180, hypotension 86/62, temperature 98.1?, pulse ox 97 on room air In the ED, patient was found have SVT on EKG, heart rate 179. Valsalva maneuver was attempted 2 times with no success, patient was administered 12 mg of IV adenosine with improvement of his symptoms he is now in sinus rhythm. Initial troponin noted to be negative at 0.026. Patient's 3 hour troponin was noted to be elevated at 0.232. At this time patient was started on a heparin drip and bolus for NSTEMI in the ED. CBC showed anemia hemoglobin 12.4, Chemistry showed glucose 392 Alcohol level 185 Chest x-ray showed no acute cardiopulmonary issues Review of Systems Review of Systems: ROS negative except above PMFSH Social History Social History Smoking packs per day: 0.5 Smoking cigarettes per day: 10.0 Years smoked: 3 Smoking pack-years: 1.50 Smoking status: Current every day smoker Tobacco type: cigarettes Meds Home Medications and Allergies Home Medications ?Medication ?Instructions ?Recorded ?Confirmed ?Type atorvastatin 40 mg tablet 40 mg PO QPM 09/26/24 09/26/24 History carvedilol 3.125 mg tablet 3.125 mg PO Q12H 09/26/24 09/26/24 History clonidine HCl 0.1 mg tablet 0.1 mg PO Q12H PRN SBP >160/90 09/26/24 09/26/24 History clopidogrel 75 mg tablet 75 mg PO DAILY 09/26/24 09/26/24 History dulaglutide 0.75 mg/0.5 mL 0.75 mg subcut WEEKLY 09/26/24 09/26/24 History subcutaneous pen injector (Trulicity) ergocalciferol (vitamin D2) 1,250 1,250 mcg PO WEEKLY 09/26/24 09/26/24 History mcg (50,000 unit) capsule gabapentin 100 mg capsule 100 mg PO QHS 09/26/24 09/26/24 History glipizide 5 mg tablet 5 mg PO BIDWM 09/26/24 09/26/24 History levetiracetam 500 mg tablet 500 mg PO Q12H 09/26/24 09/26/24 History losartan 50 mg tablet 50 mg PO DAILY 09/26/24 09/26/24 History metformin 1,000 mg tablet 1,000 mg PO BIDWM 09/26/24 09/26/24 History nitroglycerin 0.4 mg sublingual 0.4 mg sublingual Q5M PRN chest 09/26/24 09/26/24 History tablet pain trazodone 50 mg tablet 50 mg PO QHS PRN sleep 09/26/24 09/26/24 History Allergies Allergy/AdvReac Type Severity Reaction Status Date / Time No Known Allergies Allergy Verified 09/26/24 01:03 Vital Signs Vital Signs - 24 hr 09/26/24 00:50 09/26/24 01:17 09/26/24 05:12 Temperature 98.1 F Pulse Rate 180 H 95 Respiratory Rate 17 Blood Pressure 86/62 L 117/68 Pulse Oximetry 97 97 Oxygen Delivery Room Air 09/26/24 07:02 09/26/24 08:43 Temperature 98.1 F Pulse Rate 91 Respiratory Rate 14 Blood Pressure 116/66 Pulse Oximetry 99 96 Oxygen Delivery Room Air Exam Narrative: GENERAL: Pleasant, in no acute distress. Well-nourished. - EYES: EOMI. Anicteric. - HENT: Moist mucous membranes. - LUNGS: Clear to auscultation bilaterally, no wheezing, rhonchi, or rales. - CARDIOVASCULAR: Regular rate and rhythm. No murmur. No JVD. Reproducible left chest wall pain - ABDOMEN: Soft, epigastric tender and non-distended. No palpable masses. - EXTREMITIES: No edema. Peripheral pulses 2+. Non-tender. - NEUROLOGIC: No focal neurological deficits. CN II-XII grossly intact. - PSYCHIATRIC: Awake, Alert and oriented x 3. Appropriate mood and affect. - SKIN: No rashes or lesions. Warm. - LYMPH: No cervical lymphadenopathy. H&P: Results Labs Labs: Short CBC 09/26/24 09/26/24 Range/Units 01:19 07:31 WBC 7.6 6.2 (4.5-10.0) K/mm3 Hgb 12.4 L 11.4 L (14.0-18.0) g/dL Hct 38.8 L 35.1 L (42.0-52.0) % Plt Count 112 L 99 L (150-375) k/mm3 BMP 09/26/24 01:19 Sodium 144 Potassium 4.0 Chloride 109 H Carbon Dioxide 25 BUN 9 Creatinine 1.03 Glucose 392 H Calcium 9.0 Cardiac Enzymes 09/26/24 09/26/24 09/26/24 Range/Units 01:19 04:19 07:31 Troponin I 0.026 0.232 H* D 0.583 H* D (0.000-0.034) ng/mL Liver Function 09/26/24 Range/Units 01:19 Total Bilirubin 0.3 (0.2-1.3) mg/dL AST 104 H (17-59) U/L ALT 50 (6-50) U/L Alkaline Phosphatase 135 H (38-126) U/L Albumin 3.9 (3.5-5.1) g/dL Assessment and Plan Assessment and plan (1) Chest pain: Code(s): R07.9 - Chest pain, unspecified Status: Acute (2) NSTEMI (non-ST elevation myocardial infarction): Code(s): I21.4 - Non-ST elevation (NSTEMI) myocardial infarction Status: Acute (3) Supraventricular tachycardia: Code(s): I47.10 - Supraventricular tachycardia, unspecified Status: Acute (4) Uncontrolled type 2 diabetes mellitus: Status: Acute (5) Hypotension (arterial): Code(s): I95.9 - Hypotension, unspecified Status: Acute Plan Chest pain NSTEMI SVT Patient has history of CABG performed October urine Brought to ED because of chest pain Elevated troponin EKG showed SVT Received adenosine, converted to sinus rhythm Elevated troponin x3 that is trending up Received by 325 mg once, continue aspirin 81 mg daily p.o. Continue heparin drip titrated per ACS protocol Nitroglycerin sublingual Started better 40 mg daily p.o. Pending echocardiogram Consult pearl digger for evaluation treatment Hypotension Possible due to SVT Currently blood pressure stable on the lower side Alcohol abuse Alcohol intoxication Advised patient about stop drinking Provide thiamine folic acid Monitor alcohol withdrawal per CIRI protocol Start Librium and Ativan p.r.n. Start D5 normal saline 75 mL/hour Anemia Hemoglobin is trending down Follow-up stool guaiac, ferritin, iron panel Risk of GI bleeding due to alcohol abuse, start Protonix 40 mg daily IV Hospitalist [facility] Advance Care Plan I have confirmed that the patient's Advanced Care Plan is present, code status is documented, or surrogate decision maker is listed in patient medical record.: Yes Medication Reconciliation I have utilized all available resources to obtain, update and review the patients current medications (includes all prescriptions, OTC, herbals, cannabis, and nutritional supplements).: Yes
[2024-09-26 10:46] LABS: Iron 40 ug/dL (49-181)
[2024-09-26 10:55] LABS: Percent Iron Saturation 18 % (20-50)
[2024-09-26] MEDS: PANTOPRAZOLE SODIUM IV 40 MG VIAL IV PUSH (11:31)
[2024-09-26] MEDS: chlordiazePOXIDE (*CRX) 25 MG CAPSULE PO ×2 (11:31→19:09)
[2024-09-26] MEDS: DEXTROSE 5%/0.9% SOD CHL 1,000 ML 75 ML IV CONT (11:31)
[2024-09-26] MEDS: oxyCODONE/ACETAMINOPHEN (*CRX) 5-325 MG TABLET 1 TABLET PO ×2 (11:31→21:11)
[2024-09-26 11:37] LABS: Ferritin 70.80 ng/mL (11.1-264)
[2024-09-26 11:50] LABS: Partial Thromboplastin Time 64.6 Seconds (22.3-36.8)
[2024-09-26 19:27] LABS: Partial Thromboplastin Time 114.9 Seconds (22.3-36.8)
[2024-09-26] MEDS: LORazepam INJ (*CRX) 2 MG/ML VIAL IV PUSH (19:47)
[2024-09-27] VITALS (18 sets, daily range): BP systolic 130–155; BP diastolic 68–80; PULSE 68–88; RESP 14–20; TEMP 36.4–37.1; O2SAT 9–100
[2024-09-27] MEDS: LORazepam INJ (*CRX) 2 MG/ML VIAL IV PUSH ×4 (00:05→21:26)
[2024-09-27 02:15] LABS: Partial Thromboplastin Time 66.9 Seconds (22.3-36.8)
[2024-09-27] MEDS: HEPARIN SOD/D5W 100 UNITS/ML 25,000 UNITS/250 ML BAG 10 UNITS IV CONT (02:41)
[2024-09-27 04:45] LABS: Hematocrit 33.0 % (42.0-52.0); Hemoglobin 10.6 g/dL (14.0-18.0); Immature Platelet Fraction Pct 3.1 % (0.9-11.2); Mean Corpuscular HGB Conc 32.1 g/dl (32-36); Mean Corpuscular Hemoglobin 32.3 pg (26-34); Mean Corpuscular Volume 100.6 fl (80-100); Red Blood Count 3.28 M/mm3 (4.6-6.20); White Blood Count 4.9 K/mm3 (4.5-10.0)
[2024-09-27 04:46] LABS: Platelet Count Result 87 k/mm3 (150-375)
[2024-09-27 05:01] LABS: Alanine Aminotransferase 33 U/L (6-50); Albumin Level 3.0 g/dL (3.5-5.1); Alkaline Phosphatase 96 U/L (38-126); Anion Gap 3 mmol/L (4-12); Aspartate Amino Transferase 53 U/L (17-59); Bilirubin,Total 0.3 mg/dL (0.2-1.3); Blood Urea Nitrogen 10 mg/dL (9-20); Calcium 8.2 mg/dL (8.4-10.2); Carbon Dioxide 27 mmol/L (22-30); Chloride 107 mmol/L (98-107); Estimated CRCL calculation 79 ml/min; Estimated Glomerular Filt Rate > 60; Glucose 287 mg/dL (65-110); Magnesium 1.6 mg/dL (1.6-2.3); Potassium 3.8 mmol/L (3.4-5.0); Sodium 137 mmol/L (137-145); Total Protein 5.4 g/dL (6.3-8.2)
[2024-09-27] MEDS: ASPIRIN 81 MG ENTERIC TABLET PO (08:24)
[2024-09-27] MEDS: chlordiazePOXIDE (*CRX) 25 MG CAPSULE PO ×2 (08:24→14:42)
[2024-09-27] MEDS: PANTOPRAZOLE SODIUM IV 40 MG VIAL IV PUSH (08:25)
[2024-09-27] MEDS: THIAMINE HCL 200 MG/2 ML VIAL 100 MG IV PUSH (08:26)
[2024-09-27 08:27] LABS: Immature Granulocyte Percent A 0.2 % (0-0.5); Lymphocytes Absolute Auto 1.72 K/mm3 (0.9-3.2); Nucleated Red Blood Cells Absolute Auto 0.000 K/mm3 (0.0-0.012); Nucleated Red Blood Cells Perc 0.0 % (0.0-0.2)
[2024-09-27] MEDS: FOLIC ACID 1 MG/0.2 ML INJ IV PUSH (08:53)
[2024-09-27 09:20] LABS: Partial Thromboplastin Time 134.0 Seconds (22.3-36.8)
--- NOTE | 2024-09-27 09:55 | PM.IMPN ---
Progress Note: A&P Assessment and Plan (1) Chest pain: Code(s): R07.9 - Chest pain, unspecified Status: Acute (2) NSTEMI (non-ST elevation myocardial infarction): Code(s): I21.4 - Non-ST elevation (NSTEMI) myocardial infarction Status: Acute (3) Supraventricular tachycardia: Code(s): I47.10 - Supraventricular tachycardia, unspecified Status: Acute (4) Uncontrolled type 2 diabetes mellitus: Status: Acute (5) Hypotension (arterial): Code(s): I95.9 - Hypotension, unspecified Status: Acute Plan Chest pain NSTEMI SVT Patient has history of CABG performed October urine Brought to ED because of chest pain Elevated troponin EKG showed SVT Received adenosine, converted to sinus rhythm Elevated troponin x3 that is trending up Received by 325 mg once, continue aspirin 81 mg daily p.o. Continue heparin drip titrated per ACS protocol Nitroglycerin sublingual Started Lipitor 40 mg daily p.o. Pending echocardiogram Consult corrosion control specialist for evaluation treatment Hypotension Possible due to SVT Currently blood pressure stable on the lower side Alcohol abuse Alcohol intoxication Advised patient about stop drinking Provide thiamine folic acid Monitor alcohol withdrawal per CIWA protocol Start Librium and Ativan p.r.n. Start D5 normal saline 75 mL/hour Anemia Hemoglobin is trending down Follow-up stool guaiac, ferritin 70, iron panel suggested air deficiency Start ferrous sulfate 325 mg daily p.o. Risk of GI bleeding due to alcohol abuse, start Protonix 40 mg daily IV History of seizure Continue Keppra 500 mg b.i.d. p.o. Uncontrolled diabetes Hold metformin glipizide Starter Lantus 12 units q.h.s. lispro 4 units a.c. and insulin sliding scale Subjective Date/time seen: 09/27/24 09:56 Interval history: Patient is afebrile, blood pressure stable, Patient feels tired, still has chest and epigastric pain. Denies nausea vomiting diarrhea Exam Narrative: GENERAL: Pleasant, in no acute distress. Well-nourished. - EYES: EOMI. Anicteric. - HENT: Moist mucous membranes. - LUNGS: Clear to auscultation bilaterally, no wheezing, rhonchi, or rales. - CARDIOVASCULAR: Regular rate and rhythm. No murmur. No JVD. Reproducible left chest wall pain - ABDOMEN: Soft, epigastric tender and non-distended. No palpable masses. - EXTREMITIES: No edema. Peripheral pulses 2+. Non-tender. - NEUROLOGIC: No focal neurological deficits. CN II-XII grossly intact. - PSYCHIATRIC: Awake, Alert and oriented x 3. Appropriate mood and affect. - SKIN: No rashes or lesions. Warm. - LYMPH: No cervical lymphadenopathy. Objective Data Vital Signs Vital Signs: Vital Signs - 24 hr 09/26/24 10:00 09/26/24 11:42 09/26/24 12:00 Temperature 98.4 F Pulse Rate 93 86 Respiratory Rate 18 Blood Pressure 148/70 H Pulse Oximetry 98 99 Oxygen Delivery Room Air 09/26/24 12:00 09/26/24 14:00 09/26/24 16:00 Temperature 98.7 F Pulse Rate 93 100 98 Respiratory Rate 14 Blood Pressure 120/63 Pulse Oximetry 99 Oxygen Delivery 09/26/24 16:00 09/26/24 16:00 09/26/24 18:00 Temperature Pulse Rate 99 87 Respiratory Rate Blood Pressure Pulse Oximetry 99 Oxygen Delivery Room Air 09/26/24 20:00 09/26/24 20:00 09/26/24 20:00 Temperature 98.7 F Pulse Rate 97 100 Respiratory Rate 15 Blood Pressure 144/71 H Pulse Oximetry 100 Oxygen Delivery Room Air 09/26/24 22:00 09/26/24 23:40 09/27/24 00:00 Temperature 97.9 F Pulse Rate 88 90 Respiratory Rate 20 Blood Pressure 152/58 H Pulse Oximetry 100 Oxygen Delivery Room Air 09/27/24 00:00 09/27/24 02:00 09/27/24 03:17 Temperature Pulse Rate 88 82 Respiratory Rate Blood Pressure Pulse Oximetry Oxygen Delivery Room Air 09/27/24 04:00 09/27/24 04:00 09/27/24 06:00 Temperature 98.8 F Pulse Rate 74 68 78 Respiratory Rate 20 Blood Pressure 132/68 Pulse Oximetry 100 Oxygen Delivery 09/27/24 07:43 09/27/24 08:00 Temperature 97.5 F L Pulse Rate 74 Respiratory Rate 14 Blood Pressure 146/73 H 146/73 H Pulse Oximetry 100 Oxygen Delivery Intake/Output Intake/Output: Intake & Output 09/24/24 09/25/24 09/26/24 09/27/24 23:59 23:59 23:59 23:59 Intake Total 780.3 1144.3 Output Total 1075 300 Balance -294.7 844.3 Meds/Results Medications: Active Medications Generic Name Dose Route Start Last Admin Trade Name Freq PRN Reason Stop Dose Admin Aspirin 81 mg 09/27/24 09:00 09/27/24 08:24 Aspirin 81 Mg Enteric Tablet PO 81 mg QAM RAO Administration Chlordiazepoxide HCl 25 mg 09/26/24 09:49 09/27/24 08:24 Chlordiazepoxide (*Crx) 25 Mg Capsule PO 25 mg Q6H PRN Administration Withdrawal Folic Acid 1 mg 09/27/24 09:00 09/27/24 08:53 Folic Acid 1 Mg/0.2 Ml Inj IV PUSH 1 mg QAM RAO Administration Heparin Sodium (Porcine) 4,000 units 09/26/24 04:52 Heparin Sodium 5,000 Units/Ml Vial IV PUSH PRN PRN aPTT less than 55 seconds Heparin Sodium (Porcine) 3,000 units 09/26/24 04:52 09/27/24 02:42 Heparin Sodium 5,000 Units/Ml Vial IV PUSH 3,000 units PRN PRN Administration aPTT 55 - 70 seconds Heparin Sodium/Dextrose 25,000 units in 250 mls @ 10 mls/hr 09/26/24 04:55 09/27/24 02:41 Heparin Sodium/D5w 100 Units/Ml IV CONT 1,000 units/hr .Q24H RAO 10 mls/hr Administration Protocol 1,000 UNITS/HR Dextrose/Sodium Chloride 1,000 mls @ 75 mls/hr 09/26/24 09:50 09/27/24 03:20 Dextrose 5% Sodium Chloride 0.9% IV CONT Not Given .[id number] RAO Lorazepam 2 mg 09/26/24 09:49 09/27/24 09:16 Lorazepam Inj (*Crx) 2 Mg/Ml Vial IV PUSH 2 mg Q2H PRN Administration CIWA > 15 Ondansetron HCl 4 mg 09/26/24 09:49 09/26/24 11:31 Ondansetron Inj 4 Mg/2 Ml Vial IV PUSH 4 mg Q6H PRN Administration Nausea And Vomiting Oxycodone/Acetaminophen 1 tablet 09/26/24 11:13 09/26/24 21:11 Oxycodone/Acetaminophen (*Crx) 5-325 Mg Tablet PO 1 tablet Q4H PRN Administration Pain Rated 7-10 Pantoprazole Sodium 40 mg 09/26/24 09:55 09/27/24 08:25 Pantoprazole Sodium Iv 40 Mg Vial IV PUSH 40 mg QAM RAO Administration Thiamine HCl 100 mg 09/27/24 09:00 09/27/24 08:26 Thiamine Hcl 200 Mg/2 Ml Vial IV PUSH 100 mg DAILY RAO Administration Trazodone HCl 50 mg 09/26/24 21:00 09/26/24 21:38 Trazodone Hcl 50 Mg Tablet PO 50 mg HS RAO Administration Radiology Results: ITS Impressions Chest X-Ray 09/26/24 05:29 Impression: Clear lungs. Labs Labs: Laboratory Results - last 24 hr 09/26/24 09/26/24 09/26/24 07:28 11:19 11:48 WBC RBC Hgb Hct MCV MCH MCHC RDW Plt Count MPV Immature Gran % (Auto) Neut % (Auto) Lymph % (Auto) [place] % (Auto) Eos % (Auto) Baso % (Auto) Lymph # (Auto) [place] # (Auto) Eos # (Auto) Baso # (Auto) Abs Immat Gran (auto) Absolute Neuts (auto) Absolute Nucleated RBC Nucleated RBC % % Immature Plt Fraction APTT 64.6 H Sodium Potassium Chloride Carbon Dioxide Anion Gap BUN Creatinine Estim Creat Clear Calc Estimated GFR Glucose POC Capillary Glucose 279 H Calcium Magnesium Iron 40 L TIBC 225 L % Saturation 18 L Ferritin 70.80 Total Bilirubin AST ALT Alkaline Phosphatase Total Protein Albumin 09/26/24 09/26/24 09/27/24 16:39 18:11 00:04 WBC RBC Hgb Hct MCV MCH MCHC RDW Plt Count MPV Immature Gran % (Auto) Neut % (Auto) Lymph % (Auto) [place] % (Auto) Eos % (Auto) Baso % (Auto) Lymph # (Auto) [place] # (Auto) Eos # (Auto) Baso # (Auto) Abs Immat Gran (auto) Absolute Neuts (auto) Absolute Nucleated RBC Nucleated RBC % % Immature Plt Fraction APTT 114.9 H Sodium Potassium Chloride Carbon Dioxide Anion Gap BUN Creatinine Estim Creat Clear Calc Estimated GFR Glucose POC Capillary Glucose 390 H 335 H Calcium Magnesium Iron TIBC % Saturation Ferritin Total Bilirubin AST ALT Alkaline Phosphatase Total Protein Albumin 09/27/24 09/27/24 09/27/24 01:30 04:37 08:18 WBC 4.9 RBC 3.28 L Hgb 10.6 L Hct 33.0 L MCV 100.6 H MCH 32.3 MCHC 32.1 RDW 15.5 H Plt Count 87 L MPV 9.5 Immature Gran % (Auto) 0.2 Neut % (Auto) 49.7 Lymph % (Auto) 34.5 [place] % (Auto) 11.6 H Eos % (Auto) 3.2 Baso % (Auto) 0.8 Lymph # (Auto) 1.72 [place] # (Auto) 0.6 Eos # (Auto) 0.2 Baso # (Auto) 0.0 Abs Immat Gran (auto) 0.01 Absolute Neuts (auto) 2.5 Absolute Nucleated RBC 0.000 Nucleated RBC % 0.0 % Immature Plt Fraction 3.1 APTT 66.9 H Sodium 137 Potassium 3.8 Chloride 107 Carbon Dioxide 27 Anion Gap 3 L BUN 10 Creatinine 0.86 Estim Creat Clear Calc 79 Estimated GFR > 60 Glucose 287 H POC Capillary Glucose 292 H Calcium 8.2 L Magnesium 1.6 Iron TIBC % Saturation Ferritin Total Bilirubin 0.3 AST 53 ALT 33 Alkaline Phosphatase 96 Total Protein 5.4 L Albumin 3.0 L 09/27/24 08:57 WBC RBC Hgb Hct MCV MCH MCHC RDW Plt Count MPV Immature Gran % (Auto) Neut % (Auto) Lymph % (Auto) [place] % (Auto) Eos % (Auto) Baso % (Auto) Lymph # (Auto) [place] # (Auto) Eos # (Auto) Baso # (Auto) Abs Immat Gran (auto) Absolute Neuts (auto) Absolute Nucleated RBC Nucleated RBC % % Immature Plt Fraction APTT 134.0 H Sodium Potassium Chloride Carbon Dioxide Anion Gap BUN Creatinine Estim Creat Clear Calc Estimated GFR Glucose POC Capillary Glucose Calcium Magnesium Iron TIBC % Saturation Ferritin Total Bilirubin AST ALT Alkaline Phosphatase Total Protein Albumin
[2024-09-27] MEDS: CLOPIDOGREL BISULFATE 75 MG TABLET PO (11:00)
[2024-09-27] MEDS: FERROUS SULFATE 325 MG TABLET DR PO (11:00)
[2024-09-27] MEDS: INSULIN ASPART (*BKC) 100 UNITS/ML SUB-Q ×2 (12:24)
[2024-09-27 14:34] LABS: Immunochemical Fecal Occult Bl Positive (N)
[2024-09-27 14:35] LABS: IFOB Positive Control Positive
--- NOTE | 2024-09-27 14:35 | PM.CNCAR ---
Assessment and Plan Assessment and plan (1) Supraventricular tachycardia: Code(s): I47.10 - Supraventricular tachycardia, unspecified Status: Acute Assessment and Plan: Status post adenosine with now normalization of rhythm. Etiologies are numerous including underlying CAD, hypo magnesemia, alcohol use. Will check a 2D echocardiogram with Doppler. Magnesium is also low at 1.3 and will give 2 g of IV magnesium and increase his carvedilol to 6.25 mg p.o. b.i.d. if not already performed TSH will also be ordered (2) NSTEMI (non-ST elevation myocardial infarction): Code(s): I21.4 - Non-ST elevation (NSTEMI) myocardial infarction Status: Acute Assessment and Plan: I do not think this is related a acute plaque rupture although not definitive at this point. Will continue trending troponins. This is likely related to demand ischemia related to his extreme tachycardia from SVT on top of known coronary disease. Continue heparin for another 24 hours then DC. Continue clopidogrel but add aspirin 81 mg p.o. daily. (3) Coronary artery disease: Code(s): I25.10 - Atherosclerotic heart disease of [place] coronary artery without angina pectoris Status: Acute Assessment and Plan: Aspirin, clopidogrel, carvedilol, losartan and atorvastatin will be continued. Changes as above (4) Tobacco abuse: Code(s): Z72.0 - Tobacco use Status: Acute Assessment and Plan: Tobacco abuse counseling performed (5) Alcohol abuse: Code(s): F10.10 - Alcohol abuse, uncomplicated Status: Acute Assessment and Plan: Alcohol abuse counseling performed (6) Uncontrolled type 2 diabetes mellitus: Status: Acute Assessment and Plan: Per hospitalist (7) Hyperlipidemia associated with type 2 diabetes mellitus: Code(s): E11.69 - Type 2 diabetes mellitus with other specified complication; E78.5 - Hyperlipidemia, unspecified Status: Acute Assessment and Plan: Continue atorvastatin 40 mg daily (8) Hypertension associated with diabetes: Code(s): E11.59 - Type 2 diabetes mellitus with other circulatory complications; I15.2 - Hypertension secondary to endocrine disorders Status: Acute Assessment and Plan: Continue home meds History of Present Illness History of Present Illness Consult date/time: 09/27/24 14:35 Requesting physician: Snehal Rosas MD Consult reason: chest pain and Other (SVT, chest pain come a elevated troponin) Reason For Visit: SVT, CP, NSTEMI Narrative: Date of service 09/27/2024 Reason for consultation, chest pain, SVT, elevated troponin Request from provider: Dr. Rosas History: Patient is a 59-year-old male who has a history of coronary disease and underwent a three-vessel CABG in [place] where he lives in October of 2023. He developed acute onset of tachycardia yesterday. He came to the hospital because of the symptoms after EMS was called. After his bypass he has some left-sided chest pain all the time but yesterday at about 8:00 p.m. he noticed acute onset of very rapid heartbeat. He drinks alcohol on a daily basis. He also smokes. Due to the chest pounding EMS was called and adenosine was given which did not provide significant relief. He came to the hospital and Valsalva maneuver and eventually 12 mg of IV adenosine was provided. This did break his rhythm and converted into a sinus rhythm. In the process of workup troponins were have been drawn and have gone from 0.0260 up to 0.583. He currently feels fine and denies any chest pain, shortness of breath, syncope, presyncope, paroxysmal nocturnal dyspnea. At home recently he has been having some paroxysmal nocturnal dyspnea and does have some chronic edema in his right leg. He is dyspneic with activity chest is walking about 1 block. No chest pain except for that aforementioned. Cardiology consultation was requested because of the arrhythmia and elevated troponin Review of Systems Review of Systems: All systems reviewed & are unremarkable except as noted in HPI and below Constitutional: Constitutional: Denies body ache(s) Eyes: Eyes: Denies blurry vision ENT: Denies Normal hearing present Cardiovascular: Cardiovascular: Denies chest pain, Reports leg edema and Reports palpitations Respiratory: Respiratory: Denies chest congestion and Reports dyspnea on exertion Gastrointestinal: Gastrointestinal: Denies abdominal pain Genitourinary: Genitourinary: Denies hematuria Musculoskeletal: Musculoskeletal: Reports back pain Integumentary/Breasts: Skin/Breast: Denies pruritus and Reports wounds Neurologic: Denies Abnormal speech present Psychiatric: Psychiatric: Denies anxiety Endocrine: Endocrine: Denies excessive sweating Hematologic/Lymphatic: Hematologic/Lymphatic: Denies easy bleeding Allergic/Immunologic: Allergic/Immunologic: Denies GI upset with certain foods PMFSH Past Medical History Medical History (Updated 09/27/24 @ 14:43 by Chele Michael MD) Hypertension associated with diabetes Hyperlipidemia associated with type 2 diabetes mellitus Alcohol abuse Tobacco abuse Coronary artery disease Family History Family History (Updated 09/27/24 @ 14:41 by Chele Michael MD) Father Diabetes mellitus Social History Social History Smoking packs per day: 0.5 Smoking cigarettes per day: 10.0 Years smoked: 3 Smoking pack-years: 1.50 Smoking status: Current every day smoker Tobacco type: cigarettes Alcohol intake: current Drinks per week: 24 Substance use: never Substance use type: does not use Do You Feel Safe in your Home?: Yes Lack of Transportation: No Lack of Food: Never True Current Housing: I Have Housing Concerned About Future Housing: No Difficulty Paying Gas/Electric Bills: No Difficulty Paying for Meds: No Currently Unemployed: No Education: Decline to Answer Difficulty w/ Childcare or Family Care: No Spiritual care concerns: No Meds Home Medications and Allergies Home Medications ?Medication ?Instructions ?Recorded ?Confirmed ?Type atorvastatin 40 mg tablet 40 mg PO QPM 09/26/24 09/26/24 History carvedilol 3.125 mg tablet 3.125 mg PO Q12H 09/26/24 09/26/24 History clonidine HCl 0.1 mg tablet 0.1 mg PO Q12H PRN SBP >160/90 09/26/24 09/26/24 History clopidogrel 75 mg tablet 75 mg PO DAILY 09/26/24 09/26/24 History dulaglutide 0.75 mg/0.5 mL 0.75 mg subcut WEEKLY 09/26/24 09/26/24 History subcutaneous pen injector (Trulicity) ergocalciferol (vitamin D2) 1,250 1,250 mcg PO WEEKLY 09/26/24 09/26/24 History mcg (50,000 unit) capsule gabapentin 100 mg capsule 100 mg PO QHS 09/26/24 09/26/24 History glipizide 5 mg tablet 5 mg PO BIDWM 09/26/24 09/26/24 History levetiracetam 500 mg tablet 500 mg PO Q12H 09/26/24 09/26/24 History losartan 50 mg tablet 50 mg PO DAILY 09/26/24 09/26/24 History metformin 1,000 mg tablet 1,000 mg PO BIDWM 09/26/24 09/26/24 History nitroglycerin 0.4 mg sublingual 0.4 mg sublingual Q5M PRN chest 09/26/24 09/26/24 History tablet pain trazodone 50 mg tablet 50 mg PO QHS PRN sleep 09/26/24 09/26/24 History Allergies Allergy/AdvReac Type Severity Reaction Status Date / Time No Known Allergies Allergy Verified 09/26/24 01:03 Vital Signs Vital Signs - 24 hr 09/26/24 16:00 09/26/24 16:00 09/26/24 16:00 Temperature 37.1 C Pulse Rate 98 99 Respiratory Rate 14 Blood Pressure 120/63 Pulse Oximetry 99 99 Oxygen Delivery Room Air 09/26/24 18:00 09/26/24 20:00 09/26/24 20:00 Temperature 37.1 C Pulse Rate 87 97 Respiratory Rate 15 Blood Pressure 144/71 H Pulse Oximetry 100 Oxygen Delivery Room Air 09/26/24 20:00 09/26/24 22:00 09/26/24 23:40 Temperature 36.6 C Pulse Rate 100 88 90 Respiratory Rate 20 Blood Pressure 152/58 H Pulse Oximetry 100 Oxygen Delivery 09/27/24 00:00 09/27/24 00:00 09/27/24 02:00 Temperature Pulse Rate 88 82 Respiratory Rate Blood Pressure Pulse Oximetry Oxygen Delivery Room Air 09/27/24 03:17 09/27/24 04:00 09/27/24 04:00 Temperature 37.1 C Pulse Rate 74 68 Respiratory Rate 20 Blood Pressure 132/68 Pulse Oximetry 100 Oxygen Delivery Room Air 09/27/24 06:00 09/27/24 07:43 09/27/24 08:00 Temperature 36.4 C L Pulse Rate 78 74 Respiratory Rate 14 Blood Pressure 146/73 H 146/73 H Pulse Oximetry 100 Oxygen Delivery 09/27/24 08:00 09/27/24 11:00 09/27/24 11:34 Temperature 36.7 C Pulse Rate 71 81 Respiratory Rate 18 Blood Pressure 155/77 H Pulse Oximetry 100 100 Oxygen Delivery Room Air 09/27/24 12:00 Temperature Pulse Rate Respiratory Rate Blood Pressure Pulse Oximetry 100 Oxygen Delivery Room Air Exam Narrative: Alert oriented appears older than stated age Const: General: comfortable and no acute distress HENMT: Ears: TM's normal bilaterally Face/Nose/Sinus: Normal nares present Eyes: General: appearance normal, both eyes and all related structures Sclera: sclerae normal Neck: Neck: supple and no JVD Chest: Other: No reproducible chest wall pain to palpation Resp: Effort & Inspection: normal respiratory effort Auscultation: clear to auscultation bilaterally Cardio: Rate: regular rate Rhythm: regular rhythm Heart sounds: no murmurs GI: Inspection: non-distended GI Palp: Yes Soft to palpation Auscultation: normal bowel sounds Skin: General skin exam: normal color and no rashes or lesions noted Other: Excoriations noted Neuro: Speech: normal speech Motor exam (neuro): 5/5 motor strength present throughout Extrem: General: edema Other: Trivial lower extremity edema Psych: Mental Status: mental status grossly normal Affect: normal affect Results Labs and Meds 09/27/24 04:37 09/27/24 04:37 Lab results: Cardiac Enzymes 09/27/24 Range/Units 04:37 AST 53 (17-59) U/L Coagulation 09/26/24 09/27/24 09/27/24 Range/Units 18:11 01:30 08:57 APTT 114.9 H 66.9 H 134.0 H (22.3-36.8) Seconds CBC 09/27/24 Range/Units 04:37 WBC 4.9 (4.5-10.0) K/mm3 RBC 3.28 L (4.6-6.20) M/mm3 Hgb 10.6 L (14.0-18.0) g/dL Hct 33.0 L (42.0-52.0) % Plt Count 87 L (150-375) k/mm3 Lymph # (Auto) 1.72 (0.9-3.2) K/mm3 [place] # (Auto) 0.6 (0.1-0.6) K/mm3 Eos # (Auto) 0.2 (0-0.3) K/mm3 Baso # (Auto) 0.0 (0.0-0.1) K/mm3 Comprehensive Metabolic Panel 09/27/24 Range/Units 04:37 Sodium 137 (137-145) mmol/L Potassium 3.8 (3.4-5.0) mmol/L Chloride 107 (98-107) mmol/L Carbon Dioxide 27 (22-30) mmol/L BUN 10 (9-20) mg/dL Creatinine 0.86 (0.7-1.3) mg/dL Glucose 287 H (65-110) mg/dL Calcium 8.2 L (8.4-10.2) mg/dL AST 53 (17-59) U/L ALT 33 (6-50) U/L Alkaline Phosphatase 96 (38-126) U/L Total Protein 5.4 L (6.3-8.2) g/dL Albumin 3.0 L (3.5-5.1) g/dL Intake and Output 09/26/24 09/27/24 09/27/24 23:59 07:59 15:59 Intake Total 240 904.3 312 Output Total 1075 300 325 Balance -835 604.3 -13 Intake: IV 144.3 72 Heparin Sod/D5w 100 Units/ml 25 144.3 72 ,000 units In 250 ml @ 0 mls/hr IV CONT .Q0M [facility] Rx#:[id number] Oral 240 760 240 Output: Urine 1075 300 325 Patient Weight 09/27/24 23:59 Weight 83 kg EKG is personally viewed and any pain interpreted. Initial EKG showing sinus rhythm or sinus tachycardia, cannot rule out inferior and anterior myocardial infarction, age undetermined. Another EKG shows supraventricular tachycardia heart rate 180. Cardiac catheterization report from October 2019 4:50 a.m. to 60% left main. A 70% proximal RCA, 80% proximal PDA. 70% LCX, multiple 50-70% lesions noted in the LAD diagonal and septal branches.
[2024-09-27 15:39] LABS: Partial Thromboplastin Time 53.5 Seconds (22.3-36.8)
[2024-09-27 15:49] LABS: Troponin I 0.086 ng/mL (0.000-0.034)
[2024-09-27 16:08] LABS: Thyroid Stimulating Hormone 1.280 uIU/mL (0.465-4.680)
[2024-09-27] MEDS: POTASSIUM CHLORIDE 20 MEQ ER TABLET 40 MEQ PO (17:50)
[2024-09-27] MEDS: ATORVASTATIN 40 MG TABLET PO (17:50)
[2024-09-27] MEDS: MAGNESIUM SULF 2 GM/WATER 50ML 2 GM/50 ML BAG IVPB (17:51)
[2024-09-27] MEDS: oxyCODONE/ACETAMINOPHEN (*CRX) 5-325 MG TABLET 1 TABLET PO (21:25)
[2024-09-27] MEDS: GABAPENTIN 100 MG CAPSULE PO (21:25)
[2024-09-27] MEDS: INSULIN GLARGINE (*BKC) 100 UNITS/ML 12 UNITS SUB-Q (21:26)
[2024-09-27 23:22] LABS: Partial Thromboplastin Time > 200.0 Seconds (22.3-36.8)
[2024-09-28] VITALS (13 sets, daily range): BP systolic 125–141; BP diastolic 72–78; PULSE 67–88; RESP 14–18; TEMP 36.4–36.7; O2SAT 97–100
[2024-09-28] MEDS: oxyCODONE/ACETAMINOPHEN (*CRX) 5-325 MG TABLET 1 TABLET PO (04:14)
[2024-09-28] MEDS: LORazepam INJ (*CRX) 2 MG/ML VIAL IV PUSH ×3 (04:15→15:43)
[2024-09-28] MEDS: HEPARIN SOD/D5W 100 UNITS/ML 25,000 UNITS/250 ML BAG 10 UNITS IV CONT (06:07)
[2024-09-28 07:09] LABS: Partial Thromboplastin Time 47.1 Seconds (22.3-36.8)
[2024-09-28 07:38] LABS: Potassium 4.5 mmol/L (3.4-5.0)
[2024-09-28] MEDS: INSULIN ASPART (*BKC) 100 UNITS/ML SUB-Q ×4 (08:59→17:01)
--- NOTE | 2024-09-28 09:06 | P.PNIM_ITS ---
Progress Note: A&P Assessment and Plan (1) Chest pain: Code(s): R07.9 - Chest pain, unspecified Status: Acute (2) NSTEMI (non-ST elevation myocardial infarction): Code(s): I21.4 - Non-ST elevation (NSTEMI) myocardial infarction Status: Acute (3) Supraventricular tachycardia: Code(s): I47.10 - Supraventricular tachycardia, unspecified Status: Acute (4) Uncontrolled type 2 diabetes mellitus: Status: Acute (5) Hypotension (arterial): Code(s): I95.9 - Hypotension, unspecified Status: Acute Plan Chest pain NSTEMI SVT Patient has history of CABG performed October urine Brought to ED because of chest pain Elevated troponin EKG showed SVT Received adenosine, converted to sinus rhythm Elevated troponin x3 that is trending up Received by 325 mg once, continue aspirin 81 mg daily p.o. Continue heparin drip titrated per ACS protocol Nitroglycerin sublingual Started Lipitor 40 mg daily p.o. Pending echocardiogram Consult ship/rec/doc control for evaluation treatment. Appreciate cardiology's input. Iv Rn consider possible demand ischemia due to SVT Cardiology recommends to continue heparin 24h, continue Plavix 75 mg daily p.o. aspirin 81 mg admit p.o. Hypotension Possible due to SVT Currently blood pressure stable on the lower side Alcohol abuse Alcohol intoxication Advised patient about stop drinking Provide thiamine folic acid Monitor alcohol withdrawal per [facility] protocol Start Librium and Ativan p.r.n. Start D5 normal saline 75 mL/hour Anemia Hemoglobin is trending down Follow-up stool guaiac, ferritin 70, iron panel suggested air deficiency Start ferrous sulfate 325 mg daily p.o. Risk of GI bleeding due to alcohol abuse, start Protonix 40 mg daily IV History of seizure Continue Keppra 500 mg b.i.d. p.o. Uncontrolled diabetes Hold metformin glipizide Starter Lantus 12 units q.h.s. lispro 4 units a.c. and insulin sliding scale Subjective Date/time seen: 09/28/24 09:06 Interval history: Patient is afebrile, blood pressure stable, Patient feels tired, has poor appetite, still has intermittent chest pain epigastric pain. Denies nausea vomiting diarrhea Exam Narrative: GENERAL: Pleasant, in no acute distress. Well-nourished. - EYES: EOMI. Anicteric. - HENT: Moist mucous membranes. - LUNGS: Clear to auscultation bilateral ly, no wheezing, rhonchi, or rales. - CARDIOVASCULAR: Regular rate and rhyth m. No murmur. No JVD. Reproducible left chest wall pain - ABDOMEN: Soft, epigastric tender and n on-distended. No palpable masses. - EXTREMITIES: No edema. Peripheral puls es 2+. Non-tender. - NEUROLOGIC: No focal neurological defi cits. CN II-XII grossly intact. - PSYCHIATRIC: Awake, Alert and oriented x 3. Appropriate mood and affect. - SKIN: No rashes or lesions. Warm. - LYMPH: No cervical lymphadenopathy. Objective Data Vital Signs Vital Signs: Vital Signs - 24 hr 09/27/24 10:00 09/27/24 11:00 09/27/24 11:34 Temperature 98.1 F Pulse Rate 75 71 81 Respiratory Rate 18 Blood Pressure 155/77 H Pulse Oximetry 100 Oxygen Delivery 09/27/24 12:00 09/27/24 12:00 09/27/24 14:00 Temperature Pulse Rate 78 76 Respiratory Rate Blood Pressure Pulse Oximetry 100 Oxygen Delivery Room Air 09/27/24 16:00 09/27/24 16:00 09/27/24 16:00 Temperature 97.9 F Pulse Rate 77 74 Respiratory Rate 16 Blood Pressure 146/80 H Pulse Oximetry 98 98 Oxygen Delivery Room Air 09/27/24 18:00 09/27/24 20:00 09/27/24 20:00 Temperature 97.6 F Pulse Rate 73 77 Respiratory Rate 16 Blood Pressure 148/77 H Pulse Oximetry 100 Oxygen Delivery Room Air 09/27/24 20:00 09/27/24 21:25 09/27/24 22:00 Temperature Pulse Rate 74 81 79 Respiratory Rate Blood Pressure Pulse Oximetry Oxygen Delivery 09/27/24 23:50 09/27/24 23:58 09/28/24 00:00 Temperature 98.4 F Pulse Rate 82 82 78 Respiratory Rate 14 14 Blood Pressure 130/68 Pulse Oximetry 9 L Oxygen Delivery Room Air 09/28/24 02:00 09/28/24 03:40 09/28/24 04:00 Temperature 98.1 F Pulse Rate 71 71 87 Respiratory Rate 14 14 Blood Pressure 133/72 Pulse Oximetry 99 Oxygen Delivery Room Air 09/28/24 04:00 09/28/24 06:00 09/28/24 07:27 Temperature 97.6 F Pulse Rate 77 73 67 Respiratory Rate 18 Blood Pressure 133/78 Pulse Oximetry 97 Oxygen Delivery Intake/Output Intake/Output: Intake & Output 09/25/24 09/26/24 09/27/24 09/28/24 23:59 23:59 23:59 23:59 Intake Total 780.3 1985.1 529.2 Output Total 1075 925 450 Balance -294.7 1060.1 79.2 Meds/Results Medications: Active Medications Generic Name Dose Route Start Last Admin Trade Name Freq PRN Reason Stop Dose Admin Aspirin 81 mg 09/27/24 09:00 09/27/24 08:24 Aspirin 81 Mg Enteric Tablet PO 81 mg QAM RAO Administration Atorvastatin Calcium 40 mg 09/27/24 18:00 09/27/24 17:50 Atorvastatin 40 Mg Tablet PO 40 mg QPM RAO Administration Carvedilol 6.25 mg 09/27/24 21:00 09/27/24 21:25 Carvedilol 6.25 Mg Tablet PO 6.25 mg Q12HR RAO Administration Chlordiazepoxide HCl 25 mg 09/26/24 09:49 09/27/24 14:42 Chlordiazepoxide (*Crx) 25 Mg Capsule PO 25 mg Q6H PRN Administration Withdrawal Clonidine HCl 0.1 mg 09/27/24 10:01 Clonidine Hcl 0.1 Mg Tablet PO Q12H PRN SBP >160/90 Clopidogrel Bisulfate 75 mg 09/27/24 09:00 09/27/24 11:00 Clopidogrel Bisulfate 75 Mg Tablet PO 75 mg DAILY RAO Administration Dextrose 12.5 gm 09/27/24 10:04 Dextrose 50% 25 Gm/50 Ml Syringe IV PUSH PRN PRN Hypoglycemia Protocol Ergocalciferol 1,250 mcg 09/29/24 09:00 Ergocalciferol (Vitamin D2) 1,250 Mcg (50,000 Units) Capsule PO WEEKLY RAO Ferrous Sulfate 325 mg 09/27/24 09:00 09/27/24 11:00 Ferrous Sulfate [address] PO 325 mg DAILY RAO Administration Folic Acid 1 mg 09/27/24 09:00 09/27/24 08:53 Folic Acid 1 Mg/0.2 Ml Inj IV PUSH 1 mg QAM RAO Administration Gabapentin 100 mg 09/27/24 21:00 09/27/24 21:25 Gabapentin 100 Mg Capsule PO 100 mg QHS RAO Administration Glucagon 1 mg 09/27/24 10:04 Glucagon For Inj 1 Mg Vial IM PRN PRN Hypoglycemia Protocol Glucose 15 gm 09/27/24 10:04 Glucose Oral Gel 15 Gm Of Glucse In 37.5 Gm Tube PO PRN PRN Hypoglycemia Protocol Heparin Sodium (Porcine) 4,000 units 09/26/24 04:52 09/27/24 16:28 Heparin Sodium 5,000 Units/Ml Vial IV PUSH 4,000 units PRN PRN Administration aPTT less than 55 seconds Heparin Sodium (Porcine) 3,000 units 09/26/24 04:52 09/27/24 02:42 Heparin Sodium 5,000 Units/Ml Vial IV PUSH 3,000 units PRN PRN Administration aPTT 55 - 70 seconds Heparin Sodium/Dextrose 25,000 units in 250 mls @ 10 mls/hr 09/26/24 04:55 09/28/24 06:07 Heparin Sodium/D5w 100 Units/Ml IV CONT 1,000 units/hr .Q24H RAO 10 mls/hr Administration Protocol 1,000 UNITS/HR Dextrose/Sodium Chloride 1,000 mls @ 75 mls/hr 09/26/24 09:50 09/27/24 03:20 Dextrose 5% Sodium Chloride 0.9% IV CONT Not Given .[id number] RAO Dextrose 1,000 mls @ 100 mls/hr 09/27/24 10:04 Dextrose 5% 1,000 Ml IVPB PRN PRN Hypoglycemia Protocol Insulin Aspart 4 units 09/27/24 12:00 09/28/24 08:59 Insulin Aspart (*Bkc) 100 Units/Ml 0.05 units/kg (4 units) 4 units SUB-Q Administration TIDWM RAO Insulin Aspart 3 - 6 units 09/27/24 12:00 09/28/24 08:59 Insulin Aspart (*Bkc) 100 Units/Ml SUB-Q 4 units TIDWM [facility] Administration Protocol Insulin Glargine 12 units 09/27/24 21:00 09/27/24 21:26 Insulin Glargine (*Bkc) 100 Units/Ml 0.15 units/kg (12 units) 12 units SUB-Q Administration [facility] Levetiracetam 500 mg 09/27/24 10:05 09/27/24 21:24 Levetiracetam 500 Mg Tablet PO 500 mg Q12HR RAO Administration Lorazepam 2 mg 09/26/24 09:49 09/28/24 04:15 Lorazepam Inj (*Crx) 2 Mg/Ml Vial IV PUSH 2 mg Q2H PRN Administration CIWA > 15 Losartan Potassium 50 mg 09/28/24 09:00 Losartan Potassium 50 Mg Tablet PO DAILY RAO Miscellaneous Information 1 each 09/27/24 00:01 09/28/24 00:31 Trulicity Nonformulary. Can He Use Home Supply? And What Day Due? XX 10/17 04/12 00:00 Not Given CLARIFY RAO Nitroglycerin 0.4 mg 09/27/24 10:01 Nitroglycerin Sl 0.4 Mg Tablet SUBLINGUAL Q5M PRN chest pain Non-Formulary Medication 0.75 mg 10/04/24 09:00 Dulaglutide [Trulicity] SUB-Q 11/03/24 08:59 WEEKLY RAO Ondansetron HCl 4 mg 09/26/24 09:49 09/26/24 11:31 Ondansetron Inj 4 Mg/2 Ml Vial IV PUSH 4 mg Q6H PRN Administration Nausea And Vomiting Oxycodone/Acetaminophen 1 tablet 09/26/24 11:13 09/28/24 04:14 Oxycodone/Acetaminophen (*Crx) 5-325 Mg Tablet PO 1 tablet Q4H PRN Administration Pain Rated 7-10 Pantoprazole Sodium 40 mg 09/26/24 09:55 09/27/24 08:25 Pantoprazole Sodium Iv 40 Mg Vial IV PUSH 40 mg QAM RAO Administration Perflutren Lipid Microsphere 0 ml 09/27/24 14:49 Perflutren Lipid Microspheres 1.5 Ml Vial Diluted To 10 Ml Total Volume IV PUSH 09/30/24 14:50 ONCE PRN adequate visualization Protocol Thiamine HCl 100 mg 09/27/24 09:00 09/27/24 08:26 Thiamine Hcl 200 Mg/2 Ml Vial IV PUSH 100 mg DAILY RAO Administration Trazodone HCl 50 mg 09/26/24 21:00 09/27/24 21:26 Trazodone Hcl 50 Mg Tablet PO 50 mg HS RAO Administration Trazodone HCl 50 mg 09/27/24 10:01 Trazodone Hcl 50 Mg Tablet PO QHS PRN sleep Radiology Results: ITS Impressions Chest X-Ray 09/26/24 05:29 Impression: Clear lungs. Labs Labs: Laboratory Results - last 24 hr 09/27/24 09/27/24 09/27/24 08:57 11:42 14:04 APTT 134.0 H Potassium POC Capillary Glucose 258 H Troponin I TSH Stl Occult Blood (IFOB) Positive H 09/27/24 09/27/24 09/27/24 15:17 16:28 19:36 APTT 53.5 H Potassium POC Capillary Glucose 158 H 246 H Troponin I 0.086 H* TSH 1.280 Stl Occult Blood (IFOB) 09/27/24 09/28/24 09/28/24 22:41 06:46 07:11 APTT > 200.0 H* 47.1 H Potassium 4.5 POC Capillary Glucose 255 H Troponin I TSH Stl Occult Blood (IFOB)
[2024-09-28] MEDS: CLOPIDOGREL BISULFATE 75 MG TABLET PO (09:16)
[2024-09-28] MEDS: FERROUS SULFATE 325 MG TABLET DR PO (09:16)
[2024-09-28] MEDS: ASPIRIN 81 MG ENTERIC TABLET PO (09:16)
[2024-09-28] MEDS: PANTOPRAZOLE SODIUM IV 40 MG VIAL IV PUSH (09:16)
[2024-09-28] MEDS: LOSARTAN POTASSIUM 50 MG TABLET PO (09:17)
[2024-09-28] MEDS: THIAMINE HCL 200 MG/2 ML VIAL 100 MG IV PUSH (09:17)
[2024-09-28 09:40] LABS: Hematocrit 36.2 % (42.0-52.0); Hemoglobin 11.7 g/dL (14.0-18.0); Immature Granulocyte Percent A 0.5 % (0-0.5); Immature Platelet Fraction Pct 3.6 % (0.9-11.2); Lymphocytes Absolute Auto 0.99 K/mm3 (0.9-3.2); Mean Corpuscular HGB Conc 32.3 g/dl (32-36); Mean Corpuscular Hemoglobin 32.5 pg (26-34); Mean Corpuscular Volume 100.6 fl (80-100); Nucleated Red Blood Cells Absolute Auto 0.000 K/mm3 (0.0-0.012); Nucleated Red Blood Cells Perc 0.0 % (0.0-0.2); Platelet Count Result 92 k/mm3 (150-375); Red Blood Count 3.60 M/mm3 (4.6-6.20); White Blood Count 3.7 K/mm3 (4.5-10.0)
[2024-09-28 09:57] LABS: Alanine Aminotransferase 52 U/L (6-50); Albumin Level 3.3 g/dL (3.5-5.1); Alkaline Phosphatase 98 U/L (38-126); Anion Gap 7 mmol/L (4-12); Aspartate Amino Transferase 85 U/L (17-59); Bilirubin,Total 0.5 mg/dL (0.2-1.3); Blood Urea Nitrogen 10 mg/dL (9-20); Calcium 8.5 mg/dL (8.4-10.2); Carbon Dioxide 25 mmol/L (22-30); Chloride 104 mmol/L (98-107); Estimated CRCL calculation 82 ml/min; Estimated Glomerular Filt Rate > 60; Glucose 265 mg/dL (65-110); Magnesium 1.9 mg/dL (1.6-2.3); Potassium 4.0 mmol/L (3.4-5.0); Sodium 136 mmol/L (137-145); Total Protein 6.1 g/dL (6.3-8.2)
[2024-09-28] MEDS: FOLIC ACID 1 MG/0.2 ML INJ IV PUSH (09:59)
--- NOTE | 2024-09-28 10:54 | P.PNCA_ITS ---
Progress Note: A&P Assessment and Plan (1) Supraventricular tachycardia: Code(s): I47.10 - Supraventricular tachycardia, unspecified Status: Acute Assessment and Plan: Status post adenosine with now normalization of rhythm. Etiologies are numerous including underlying CAD, hypo magnesemia, alcohol use. Echo pending. Magnesium 1.9 today. TSH normal. Continue higher dose of carvedilol (2) NSTEMI (non-ST elevation myocardial infarction): Code(s): I21.4 - Non-ST elevation (NSTEMI) myocardial infarction Status: Acute Assessment and Plan: I do not think this is related a acute plaque rupture although not definitive at this point. Troponins are down trending. This is likely related to demand ischemia related to his extreme tachycardia from SVT on top of known coronary disease. Will discontinue heparin. Continue clopidogrel and aspirin. If echo is unremarkable, okay for discharge for follow-up with his primary public policy coordinator (3) Coronary artery disease: Code(s): I25.10 - Atherosclerotic heart disease of [place] coronary artery without angina pectoris Status: Acute Assessment and Plan: Aspirin, clopidogrel, carvedilol, losartan and atorvastatin will be continued. Changes as above (4) Tobacco abuse: Code(s): Z72.0 - Tobacco use Status: Acute Assessment and Plan: Tobacco abuse counseling performed (5) Alcohol abuse: Code(s): F10.10 - Alcohol abuse, uncomplicated Status: Acute Assessment and Plan: Alcohol abuse counseling performed (6) Uncontrolled type 2 diabetes mellitus: Status: Acute Assessment and Plan: Per hospitalist (7) Hyperlipidemia associated with type 2 diabetes mellitus: Code(s): E11.69 - Type 2 diabetes mellitus with other specified complication; E78.5 - Hyperlipidemia, unspecified Status: Acute Assessment and Plan: Continue atorvastatin 40 mg daily (8) Hypertension associated with diabetes: Code(s): E11.59 - Type 2 diabetes mellitus with other circulatory complications; I15.2 - Hypertension secondary to endocrine disorders Status: Acute Assessment and Plan: Continue home meds Subjective Date/time seen: 09/28/24 10:54 Interval history: 59-year-old with coronary disease and SVT Date of service 09/28/2024: He feels well and denies any chest pain or shortness breath. Had a burst of tachycardia yesterday but back to normal Review of Systems Review of Systems: All systems reviewed & are unremarkable except as noted in HPI and below Constitutional: Constitutional: Denies body ache(s) and Denies excessive sweating Eyes: Eyes: Denies blurry vision ENT: Denies Normal hearing present Cardiovascular: Cardiovascular: Denies chest pain, Reports leg edema, Reports palpitations and Reports dyspnea on exertion Respiratory: Respiratory: Denies chest congestion and Reports dyspnea on exertion Gastrointestinal: Gastrointestinal: Denies abdominal pain Genitourinary: Genitourinary: Denies hematuria Musculoskeletal: Musculoskeletal: Reports back pain Integumentary/Breasts: Skin/Breast: Denies pruritus and Reports wounds Neurologic: Denies Normal hearing present and Denies Abnormal speech present Psychiatric: Psychiatric: Denies anxiety Endocrine: Endocrine: Denies excessive sweating and Reports palpitations Hematologic/Lymphatic: Hematologic/Lymphatic: Denies easy bleeding Allergic/Immunologic: Allergic/Immunologic: Denies GI upset with certain foods Exam Narrative: Alert oriented appears older than stated age Const: General: comfortable and no acute distress HENMT: Ears: TM's normal bilaterally Face/Nose/Sinus: Normal nares present Eyes: General: appearance normal, both eyes and all related structures Sclera: sclerae normal Neck: Neck: supple and no JVD Chest: Other: No reproducible chest wall pain to palpation Resp: Effort & Inspection: normal respiratory effort Auscultation: clear to auscultation bilaterally Cardio: Rate: regular rate Rhythm: regular rhythm Heart sounds: no murmurs GI: Inspection: non-distended Auscultation: normal bowel sounds Skin: General skin exam: normal color and no rashes or lesions noted Other: Excoriations noted Neuro: Cranial nerves: No Normal hearing present Speech: normal speech and No Abnormal speech present Motor exam (neuro): 5/5 motor strength present throughout Extrem: General: edema Other: Trivial lower extremity edema Psych: Mental Status: mental status grossly normal Affect: normal affect Objective Data Vital Signs Vital Signs: Vital Signs - 24 hr 09/27/24 11:00 09/27/24 11:34 09/27/24 12:00 Temperature 36.7 C Pulse Rate 71 81 Respiratory Rate 18 Blood Pressure 155/77 H Pulse Oximetry 100 100 Oxygen Delivery Room Air 09/27/24 12:00 09/27/24 14:00 09/27/24 16:00 Temperature 36.6 C Pulse Rate 78 76 77 Respiratory Rate 16 Blood Pressure 146/80 H Pulse Oximetry 98 Oxygen Delivery 09/27/24 16:00 09/27/24 16:00 09/27/24 18:00 Temperature Pulse Rate 74 73 Respiratory Rate Blood Pressure Pulse Oximetry 98 Oxygen Delivery Room Air 09/27/24 20:00 09/27/24 20:00 09/27/24 20:00 Temperature 36.4 C Pulse Rate 77 74 Respiratory Rate 16 Blood Pressure 148/77 H Pulse Oximetry 100 Oxygen Delivery Room Air 09/27/24 21:25 09/27/24 22:00 09/27/24 23:50 Temperature 36.9 C Pulse Rate 81 79 82 Respiratory Rate 14 Blood Pressure 130/68 Pulse Oximetry 9 L Oxygen Delivery 09/27/24 23:58 09/28/24 00:00 09/28/24 02:00 Temperature Pulse Rate 82 78 71 Respiratory Rate 14 Blood Pressure Pulse Oximetry Oxygen Delivery Room Air 09/28/24 03:40 09/28/24 04:00 09/28/24 04:00 Temperature 36.7 C Pulse Rate 71 87 77 Respiratory Rate 14 14 Blood Pressure 133/72 Pulse Oximetry 99 Oxygen Delivery Room Air 09/28/24 06:00 09/28/24 07:27 09/28/24 09:16 Temperature 36.4 C Pulse Rate 73 67 67 Respiratory Rate 18 Blood Pressure 133/78 Pulse Oximetry 97 Oxygen Delivery Intake/Output Intake/Output: Intake & Output 09/25/24 09/26/24 09/27/24 09/28/24 23:59 23:59 23:59 23:59 Intake Total 780.3 1985.1 561.7 Output Total 1075 925 450 Balance -294.7 1060.1 111.7 Meds/Results Medications: Active Medications Generic Name Dose Route Start Last Admin Trade Name Freq PRN Reason Stop Dose Admin Aspirin 81 mg 09/27/24 09:00 09/28/24 09:16 Aspirin 81 Mg Enteric Tablet PO 81 mg QAM RAO Administration Atorvastatin Calcium 40 mg 09/27/24 18:00 09/27/24 17:50 Atorvastatin 40 Mg Tablet PO 40 mg QPM RAO Administration Carvedilol 6.25 mg 09/27/24 21:00 09/28/24 09:16 Carvedilol 6.25 Mg Tablet PO 6.25 mg Q12HR RAO Administration Chlordiazepoxide HCl 25 mg 09/26/24 09:49 09/27/24 14:42 Chlordiazepoxide (*Crx) 25 Mg Capsule PO 25 mg Q6H PRN Administration Withdrawal Clonidine HCl 0.1 mg 09/27/24 10:01 Clonidine Hcl 0.1 Mg Tablet PO Q12H PRN SBP >160/90 Clopidogrel Bisulfate 75 mg 09/27/24 09:00 09/28/24 09:16 Clopidogrel Bisulfate 75 Mg Tablet PO 75 mg DAILY RAO Administration Dextrose 12.5 gm 09/27/24 10:04 Dextrose 50% 25 Gm/50 Ml Syringe IV PUSH PRN PRN Hypoglycemia Protocol Ergocalciferol 1,250 mcg 09/29/24 09:00 Ergocalciferol (Vitamin D2) 1,250 Mcg (50,000 Units) Capsule PO WEEKLY RAO Ferrous Sulfate 325 mg 09/27/24 09:00 09/28/24 09:16 Ferrous Sulfate [address] PO 325 mg DAILY RAO Administration Folic Acid 1 mg 09/27/24 09:00 09/28/24 09:59 Folic Acid 1 Mg/0.2 Ml Inj IV PUSH 1 mg QAM RAO Administration Gabapentin 100 mg 09/27/24 21:00 09/27/24 21:25 Gabapentin 100 Mg Capsule PO 100 mg QHS RAO Administration Glucagon 1 mg 09/27/24 10:04 Glucagon For Inj 1 Mg Vial IM PRN PRN Hypoglycemia Protocol Glucose 15 gm 09/27/24 10:04 Glucose Oral Gel 15 Gm Of Glucse In 37.5 Gm Tube PO PRN PRN Hypoglycemia Protocol Heparin Sodium (Porcine) 4,000 units 09/26/24 04:52 09/28/24 09:17 Heparin Sodium 5,000 Units/Ml Vial IV PUSH 4,000 units PRN PRN Administration aPTT less than 55 seconds Heparin Sodium (Porcine) 3,000 units 09/26/24 04:52 09/27/24 02:42 Heparin Sodium 5,000 Units/Ml Vial IV PUSH 3,000 units PRN PRN Administration aPTT 55 - 70 seconds Heparin Sodium/Dextrose 25,000 units in 250 mls @ 13 mls/hr 09/26/24 04:55 09:22 Heparin Sodium/D5w 100 Units/Ml IV CONT 1,300 units/hr .[id number] RAO 13 mls/hr Titration Protocol 1,300 UNITS/HR Dextrose/Sodium Chloride 1,000 mls @ 75 mls/hr 09/26/24 09:50 09/27/24 03:20 Dextrose 5% Sodium Chloride 0.9% IV CONT Not Given .[id number] RAO Dextrose 1,000 mls @ 100 mls/hr 09/27/24 10:04 Dextrose 5% 1,000 Ml IVPB PRN PRN Hypoglycemia Protocol Insulin Aspart 4 units 09/27/24 12:00 09/28/24 08:59 Insulin Aspart (*Bkc) 100 Units/Ml 0.05 units/kg (4 units) 4 units SUB-Q Administration TIDWM RAO Insulin Aspart 3 - 6 units 09/27/24 12:00 09/28/24 08:59 Insulin Aspart (*Bkc) 100 Units/Ml SUB-Q 4 units TIDWM RAO Administration Protocol Insulin Glargine 12 units 09/27/24 21:00 09/27/24 21:26 Insulin Glargine (*Bkc) 100 Units/Ml 0.15 units/kg (12 units) 12 units SUB-Q Administration HS RAO Levetiracetam 500 mg 09/27/24 10:05 09/28/24 09:16 Levetiracetam 500 Mg Tablet PO 500 mg Q12HR RAO Administration Lorazepam 2 mg 09/26/24 09:49 09/28/24 10:09 Lorazepam Inj (*Crx) 2 Mg/Ml Vial IV PUSH 2 mg Q2H PRN Administration CIWA > 15 Losartan Potassium 50 mg 09/28/24 09:00 09/28/24 09:17 Losartan Potassium 50 Mg Tablet PO 50 mg DAILY RAO Administration Miscellaneous Information 1 each 09/27/24 00:01 09/28/24 00:31 Trulicity Nonformulary. Can He Use Home Supply? And What Day Due? XX 10/27/24 00:00 Not Given CLARIFY RAO Nitroglycerin 0.4 mg 09/27/24 10:01 Nitroglycerin Sl 0.4 Mg Tablet SUBLINGUAL Q5M PRN chest pain Non-Formulary Medication 0.75 mg 10/04/24 09:00 Dulaglutide [Trulicity] SUB-Q 11/03/24 08:59 WEEKLY RAO Ondansetron HCl 4 mg 09/26/24 09:49 09/26/24 11:31 Ondansetron Inj 4 Mg/2 Ml Vial IV PUSH 4 mg Q6H PRN Administration Nausea And Vomiting Oxycodone/Acetaminophen 1 tablet 09/26/24 11:13 09/28/24 04:14 Oxycodone/Acetaminophen (*Crx) 5-325 Mg Tablet PO 1 tablet Q4H PRN Administration Pain Rated 7-10 Pantoprazole Sodium 40 mg 09/26/24 09:55 09/28/24 09:16 Pantoprazole Sodium Iv 40 Mg Vial IV PUSH 40 mg QAM RAO Administration Perflutren Lipid Microsphere 0 ml 09/27/24 14:49 Perflutren Lipid Microspheres 1.5 Ml Vial Diluted To 10 Ml Total Volume IV P USH 09/30/24 14:50 ONCE PRN adequate visualization Protocol Thiamine HCl 100 mg 09/27/24 09:00 09/28/24 09:17 Thiamine Hcl 200 Mg/2 Ml Vial IV PUSH 100 mg DAILY RAO Administration Trazodone HCl 50 mg 09/26/24 21:00 09/27/24 21:26 Trazodone Hcl 50 Mg Tablet PO 50 mg HS RAO Administration Trazodone HCl 50 mg 09/27/24 10:01 Trazodone Hcl 50 Mg Tablet PO QHS PRN sleep Radiology Results: ITS Impressions Chest X-Ray 09/26/24 05:29 Impression: Clear lungs. Labs Labs: Laboratory Results - last 24 hr 09/27/24 09/27/24 09/27/24 11:42 14:04 15:17 WBC RBC Hgb Hct MCV MCH MCHC RDW Plt Count MPV Immature Gran % (Auto) Neut % (Auto) Lymph % (Auto) [place] % (Auto) Eos % (Auto) Baso % (Auto) Lymph # (Auto) [place] # (Auto) Eos # (Auto) Baso # (Auto) Abs Immat Gran (auto) Absolute Neuts (auto) Absolute Nucleated RBC Nucleated RBC % % Immature Plt Fraction APTT 53.5 H Sodium Potassium Chloride Carbon Dioxide Anion Gap BUN Creatinine Estim Creat Clear Calc Estimated GFR Glucose POC Capillary Glucose 258 H Calcium Magnesium Total Bilirubin AST ALT Alkaline Phosphatase Troponin I 0.086 H* Total Protein Albumin TSH 1.280 Stl Occult Blood (IFOB) Positive H 09/27/24 09/27/24 09/27/24 16:28 19:36 22:41 WBC RBC Hgb Hct MCV MCH MCHC RDW Plt Count MPV Immature Gran % (Auto) Neut % (Auto) Lymph % (Auto) [place] % (Auto) Eos % (Auto) Baso % (Auto) Lymph # (Auto) [place] # (Auto) Eos # (Auto) Baso # (Auto) Abs Immat Gran (auto) Absolute Neuts (auto) Absolute Nucleated RBC Nucleated RBC % % Immature Plt Fraction APTT > 200.0 H* Sodium Potassium Chloride Carbon Dioxide Anion Gap BUN Creatinine Estim Creat Clear Calc Estimated GFR Glucose POC Capillary Glucose 158 H 246 H Calcium Magnesium Total Bilirubin AST ALT Alkaline Phosphatase Troponin I Total Protein Albumin TSH Stl Occult Blood (IFOB) 09/28/24 09/28/24 09/28/24 06:46 07:11 09:26 WBC 3.7 L RBC 3.60 L Hgb 11.7 L Hct 36.2 L MCV 100.6 H MCH 32.5 MCHC 32.3 RDW 15.3 H Plt Count 92 L MPV 9.9 Immature Gran % (Auto) 0.5 Neut % (Auto) 58.8 Lymph % (Auto) 26.5 [place] % (Auto) 11.3 H Eos % (Auto) 2.1 Baso % (Auto) 0.8 Lymph # (Auto) 0.99 [place] # (Auto) 0.4 Eos # (Auto) 0.1 Baso # (Auto) 0.0 Abs Immat Gran (auto) 0.02 Absolute Neuts (auto) 2.2 Absolute Nucleated RBC 0.000 Nucleated RBC % 0.0 % Immature Plt Fraction 3.6 APTT 47.1 H Sodium 136 L Potassium 4.5 4.0 Chloride 104 Carbon Dioxide 25 Anion Gap 7 BUN 10 Creatinine 0.83 Estim Creat Clear Calc 82 Estimated GFR > 60 Glucose 265 H POC Capillary Glucose 255 H Calcium 8.5 Magnesium 1.9 Total Bilirubin 0.5 AST 85 H ALT 52 H Alkaline Phosphatase 98 Troponin I Total Protein 6.1 L Albumin 3.3 L TSH Stl Occult Blood (IFOB)
[2024-09-28] MEDS: ONDANSETRON INJ 4 MG/2 ML VIAL IV PUSH (15:44)
[2024-09-28] MEDS: ATORVASTATIN 40 MG TABLET PO (17:01)
--- NOTE | 2024-10-01 16:38 | PM.IMPN ---
Subjective Date/time seen: 10/01/24 16:38 Interval history: this 59 yo man was admitted on 09/26/24. he left AMA on 09/28/24 Objective Data Intake/Output Intake/Output: Intake & Output 09/28/24 09/29/24 09/30/24 10/01/24 23:59 23:59 23:59 23:59 Intake Total 1041.7 Output Total 450 Balance 591.7 Meds/Results Radiology Results: ITS Impressions Chest X-Ray 09/26/24 05:29 Impression: Clear lungs.
== END 2024-09-28 18:20 | disposition left against medical advice (07) | DRG 282 ==
LOC: ANHED 03:31 → ANHIMU 05:39
PROVIDERS: Hospitalist; Internal Medicine Cardiovascular Disease; Physician Assistant; Admitting Provider Internal Medicine; Emergency Provider Emergency Medicine; Visit Provider Internal Medicine
DX: I47.10 Supraventricular tachycardia, unspecified (principal); I21.A1 Myocardial infarction type 2; I25.10 Atherosclerotic heart disease of native coronary artery without angina pectoris; Z95.1 Presence of aortocoronary bypass graft; E11.65 Type 2 diabetes mellitus with hyperglycemia; Y90.6 Blood alcohol level of 120-199 mg/100 ml; D64.9 Anemia, unspecified; F10.229 Alcohol dependence with intoxication, unspecified; F17.210 Nicotine dependence, cigarettes, uncomplicated; I95.9 Hypotension, unspecified; Z79.02 Long term (current) use of antithrombotics/antiplatelets; Z79.82 Long term (current) use of aspirin; Z79.84 Long term (current) use of oral hypoglycemic drugs; Z86.69 Personal history of other diseases of the nervous system and sense organs
CPT/HCPCS: 36415; 71045; 80053; 82077; 82274; 82728; 82948; 83540; 83550; 83690; 83735; 84132; 84443; 84484; 85025; 85027; 85055; 85610; 85730; 93005; 96374; 96375; 99285; A9270; J0153; J1644; J1815; J2060; J2405; J2470; J3411; J3475; J7042

== ENCOUNTER 2024-09-28 21:01 | Inpatient (IN) | payer MEDICARE, SELFPAY ==
--- NOTE | ~2024-09-28 | MR_ITS ---
MRI of the lumbar spine Clinical History: Pain Technique: Axial T2-weighted images, and sagittal T1-weighted, T2-weighted, and and T2 fat-sat images were acquired. Findings: Chronic L1 compression fracture for are present with vertebroplasty cement. No acute fractu re or subluxation seen. No other significant bone marrow signal abnormality identified. At L1-L2, there is moderate to advanced degenerative disc narrowing without disc bulge or herniation. There is mild to moderate facet hypertrophy. No spinal canal stenosis. There is mild bilateral neura l foraminal narrowing. At L2-L3, there is no disc bulge or herniation. There is mild to moderate facet arthropathy. No centr al canal stenosis or neural foraminal narrowing. At L3-L4, there is no disc bulge or herniation. There is moderate facet hypertrophy. No spinal canal stenosis or definite neural foraminal narrowing. At L4-L5, there is mild disc bulge with moderate facet arthropathy. No central canal stenosis. Neural foramina are preserved. At L5-S1, there is minimal disc bulge with moderate facet arthropathy. No central canal stenosis. The re is moderate right neural foraminal narrowing. Left neural foramen preserved. Paravertebral soft tissues are unremarkable. Impression: Chronic L1 compression fracture deformity with vertebroplasty cement. Mild degenerative spondylosis overall, as above. Reviewed, dictated and finalized at [facility]. Impression: Chronic L1 compression fracture deformity with vertebroplasty cement. Mild degenerative spondylosis overall, as above.
--- NOTE | ~2024-09-28 | XR_ITS ---
XR chest 2V Ordering provider: Fiorella Greenberg History: 59 years Male with . chest pain, sz . Comparison: September 27, 2023 FINDINGS: MEDIASTINUM: The cardiac silhouette is slightly enlarged. Postoperative changes in the mediastinum. LUNGS: No effusions or pneumothorax. Minimal opacification the left lung base is seen which may indic ate atelectasis. OTHER: No free air under the diaphragm. Degenerative changes of the spine. IMPRESSION: Cardiomegaly. Minimal opacification in the left lung base which may indicate atelectatic changes. Clinical correlat ion advised. Reviewed, dictated and finalized at location [facility]. IMPRESSION: Cardiomegaly. Minimal opacification in the left lung base which may indicate atelectatic lazo ges. Clinical correlation advised.
--- NOTE | ~2024-09-28 | CT_ITS ---
Non-contrast Head CT History: Syncope, seizure Technique: Axial non-contrast imaging of the brain was performed. Dose reduction technique was used on this scan by utilizing automated exposure control and iterative reconstruction technique. The dose -length product (DLP) was 681.00 mGy-cm. Findings: There is no evidence of intracranial hemorrhage, mass lesion, or acute infarct. Chronic in farct noted in the superior left frontal lobe. The ventricles and subarachnoid spaces are normal in size. The calvarium appears normal. The visualized paranasal sinuses and mastoid air cells are milo r. Impression: No acute abnormality seen. 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 Reviewed, dictated and finalized at location . Impression: No acute abnormality seen. 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
--- NOTE | ~2024-09-28 | CT_ITS ---
Clinical Indication: Chest pain CT Scan of the Chest with Contrast: Technique: Contiguous sections were acquired throughout the chest after intravenous administration of 100 cc of Omnipaque 350. Dose reduction technique was used on this scan by utilizing automated expos ure control and iterative reconstruction technique. The dose-length product (DLP) was 777.63 mGy-cm. Findings: There is no evidence of any significant mediastinal, hilar or axillary lymphadenopathy. There is no f illing defect in the pulmonary arterial tree to suggest pulmonary embolus. There is no evidence of ao rtic dissection or aneurysm. There are extensive collateral vessels throughout the right upper thorax . Probable extensive narrowing of the right subclavian vein. There is no evidence of pleural or pericardial effusion. The lungs are clear. No pulmonary nodules or infiltrates are noted. Images through the upper abdomen reveal no abnormalities. L1 vertebroplasty present. Interstitial chr onic compression deformity of T11 present. Impression: No evidence of pulmonary embolus, aortic dissection, or aortic aneurysm. Clear lungs. Probable extensive narrowing of the right subclavian vein with extensive collateral vessel formation throughout the right upper thorax. Chronic compression fractures of L1 and T11, as detailed above. Reviewed, dictated and finalized at location . Impression: No evidence of pulmonary embolus, aortic dissection, or aortic aneurysm. Clear lungs. Probable extensive narrowing of the right subclavian vein with extensive collat eral vessel formation throughout the right upper thorax. Chronic compression fractures of L1 and T11, as detailed above.
--- NOTE | ~2024-09-28 | US_ITS ---
EXAMINATION: US carotid duplex BI DATE: 09/30/2024 16:06 INDICATION: Left CVA TECHNIQUE: Grayscale, color Doppler, and pulsed Doppler images of the cervical carotid arteries were obtained. The degree of vessel stenosis is placed in one of the following categories: normal, <50%, 5 0-69%, >=70% but less than near-occlusion, near-occlusion, or total occlusion. Note that percent sten osis relative to normal distal artery lumen diameter is indirectly measured from velocity measurement s as described by Hema, et al. Radiology 2003; 229:340-346. Notes: Normal: Peak systolic velocity <125 centimeters/sec and no plaque <50%. Peak systolic velocity <125 ( EDV <40; ICA/CCA PSV ratio <2.0; used these factors only a tandem lesions or low cardiac output or co ntralateral disease) 50-69 %: PSV 125-230 (EDV 40-100; ratio 2-4) >= 70% but less than near occlusion: PSV greater than 230 (EDV > 100; ratio> 4.0) Near Occlusion: PSV that is variable; markedly narrowed lumen Occlusion: Absent flow on color/spectral Doppler and no lumen on drummond scale. COMPARISON: None. FINDINGS: RIGHT: The right common carotid artery (CCA) peak systolic velocity (PSV) is 67 cm/s. The right internal car otid artery (ICA) PSV is 80 cm/s. The right ICA end-diastolic velocity (EDV) is 17 cm/s. The right IC A/CCA PSV ratio is 1.2. The external carotid artery (ECA) PSV is 74 cm/s. There is antegrade flow in the right vertebral artery. LEFT: The left CCA PSV is 67 cm/s. The left ICA PSV is 84 cm/s. The left ICA EDV is 17 cm/s. The left ICA/C CA PSV ratio is 1.3. The ECA PSV is 104 cm/s. There is antegrade flow in the left vertebral artery. IMPRESSION: 1. Less than 50% stenosis in the right internal carotid artery by sonographic criteria. 2. Less than 50% stenosis in the left internal carotid artery by sonographic criteria. Reviewed, dictated and finalized at location [facility]. IMPRESSION: 1. Less than 50% stenosis in the right internal carotid artery by sonographic christofer rodriguez. 2. Less than 50% stenosis in the left internal carotid artery by sonographic leonardo booker.
--- NOTE | ~2024-09-28 | MR_ITS ---
MRI of the thoracic spine Clinical History: Pain Technique: Axial T2-weighted and gradient images, and sagittal T1-weighted, T2-weighted, and STIR nuha ges were acquired. Findings: Chronic L1 compression fracture present with vertebroplasty cement. There is chronic compre ssion fracture deformity of T11 with loss of height, no marrow edema. There are focal sclerotic lesio n in the T10 vertebral body, nonspecific. No other fracture or subluxation identified. No other bone marrow signal abnormality identified. At T4-T5, there is small central disc protrusion. No other significant disc bulge or herniation seen in the remainder of the thoracic spine. There are facet joint degenerative changes at the lower thora cic spine. No spinal canal stenosis or cord compression at any thoracic level. There is moderate to a dvanced bilateral neural foraminal narrowing at T7-T8, T8-T9, T9-T10, and T10-T11. No abnormal signal seen in the spinal cord. Paravertebral soft tissues are unremarkable. Impression: Chronic compression deformity of T11 and L1, as detailed above. Focal sclerotic lesion in T10 vertebral body, nonspecific. Degenerative spondylitic changes, as above, overall mild in degree. Reviewed, dictated and finalized at [facility]. Impression: Chronic compression deformity of T11 and L1, as detailed above. Focal sclerotic lesion in T10 vertebral body, nonspecific. Degenerative spondylitic changes, as above, overall mild in degree.
[2024-09-28 21:00] VITALS: BP 138/67; PULSE 85; RESP 18; TEMP 36.7; O2SAT 97
--- NOTE | 2024-09-28 21:07 | ECG_ITS ---
Test Date: 2024-09-28 21:09:06 Measurements Intervals Aubrey Rate: 83 P: 51 NC: 158 QRS: -2 QRSD: 90 T: 28 QT: 389 QTc: 459 Interpretive Statements SINUS RHYTHM INFERIOR MYOCARDIAL INFARCTION , PROBABLY OLD [40+ ms Q WAVE AND/OR ST/T ABNORMALITY IN II/aVF] Compared to ECG 09/26/2024 04:58:11 No significant changes Electronically Signed On 09-29-2024 15:53:53 CDT by Pedro Keller M.D.
[2024-09-28 21:10] VITALS: O2SAT 97
--- OUTSIDE RECORDS SUMMARY | 2024-09-28 21:13 | XMS_ITS ---
Author Organization [facility] Address [address] [place] [address] Care Team Providers Care News Videotape Editor Name Role Phone Per [place] Unavailable [phone] Jamal Reddy DO Unavailable Unavailable Sanjay Strickland Unavailable [phone] REASON FOR VISIT Vertigo Encounters Encounter Location Date Provider Diagnosis [facility] [address] [place] [address] 05/28/2024 Sanjay Strickland Plan Of Treatment No Information Progress Notes * Marcel SPENCER DDOB:1965 (59 yo M)Acc No.[id number]:05/28/2024 PROGRESS NOTES Patient: Ivana LUXMarcel Provider: Urvashi Strickland MD :1965 A ge:58 Y S ex:Male Date:05/28/2024 Address:., [place], [id number] Subjective: * Chief Complaints: * 1 . Vertigo. * Medical History: Objective: * Vitals: * Physical Examination: Assessment: Plan: * Treatment: * Images: * Electronic signature of Rosales Strickland MD on 09/28/2024 at 09:13 PM CDT Sign off status: Pending * Provider: Urvashi Strickland MD Date: 05/28/2024 Generated for Dima knight/Margarita/eTnicoleitting on: 09/28/2024 09:13 PM CDT
--- OUTSIDE RECORDS SUMMARY | 2024-09-28 21:13 | XMS_ITS | Patient Health Record ---
[place] [address] Care Team Providers Care Reduction Plant Supervisor Name Role Phone CLEM JACK Unavailable [phone] Dr. Hank Jones Unavailable Unavailable Reason For Referral No Information Encounters Encounter Location Date Provider Diagnosis [id number] [address] [place], [place] [id number] 10/23/2023 CLEM JACK Plan Of Treatment No Information Insurance Providers Payer Name Payer Address Payer Phone Subscriber Number Group Number Insured Name Patient Relationship to Insured Coverage Start Date Coverage End Date [employer] [address] [address] [place], [place] [id number] Marcel Spencer Self - patient is the insured
--- OUTSIDE RECORDS SUMMARY | 2024-09-28 21:13 | XMS_ITS ---
Author Organization [facility] Address [address] [place] [address] Care Team Providers Care Board Certified Music Therapist Name Role Phone DOUGLASJIMBOKISHAN EnamoradoRHETT Unavailable [phone] Josue Mena Unavailable [phone] ZOË LIRIANO Unavailable [phone] Allergies No Known Allergies Medications Medication SIG [...] Date Provider Diagnosis [facility] [address] [facility] [address] [place] [address] 12/10/2023 ZOË LIRIANO Atherosclerotic hear t disease of [place] coronary artery without angina pectoris I25.10 and Presence of aortocoronary bypass graft Z95.1 Assessments Encounter Date Diagnosis (ICD Code) Assessment Notes Treatment Notes Treatment Clinical Notes Section Notes 12/10/2023 Atherosclerotic heart disease of [place] coronary artery without angina pectoris (ICD-10 - [...] * KETTY BERNALOB:[birth year] (59 yo M)Acc No.[id number]:12/10/2023 Progress Notes Patient: RAMAN LOVETT Provider: Tony Liriano M.D. :1965 A ge:58 Y S ex:Male Date:12/10/2023 Address:[address] [place], [place] [id number] Subjective: * Chief Complaints: * * HPI: [...] Assessment: 1. A therosclerotic heart disease of [place] coronary artery without angina pectoris - I25.10 [...] Electronic signature of ZOË LIRIANO MD on 09/28/2024 at 09:13 PM CDT Sign off status: Pending * Provider: Tony Liriano M.D. Date: 12/10/2023 Generated for [facility] ng/Falakeg/eTransmitting on: 09/28/2024 09:13 PM CDT History and Physical Notes * HPI [...]
--- OUTSIDE RECORDS SUMMARY | 2024-09-28 21:13 | XMS_ITS | Clinical Summary ---
Author Organization [facility] [employer] Address [address] [place] [address] Care Team Providers Care Railroad Track Inspector Name Role Phone Jamal Reddy DO Primary Care Provider [phone] Source Comments [facility] [employer]non-owned Affiliates and Associated Physician Practices is amultiple site organization consisting of ambulatory clinics and hospital sitesin [place], [place], [place] and [place]. This disclosure is being madepursuant to the Care Everywhere program and may not contain all information available regarding this patient. Last updated 17.Nexercise [employer] Allergies No known active allergies Medications * [...] daily Active Cholecalciferol (vitamin D3) 1.25 MG (79372 UT) capsule Take 1 (one) capsule by [...] CDT Hospital Encounter [facility] [address] [place] [address] Jim Mccormack MD Wolde, Hailemariam, DO Internal Medicine Discharge Disposition: Left Against Medical Advice/Discontinued Care 09/20/2024 Travel 09/16/2024 1:15 PM CDT - 09/16/2024 1:57 PM CDT Emergency ER at [address] [address] Chele Olivo MD Drug-seeking behavior (Primary Dx); Chest pain, unspecified type; Alcohol abuse; Homelessness Discharge Disposition: Home or Self Care 09/16/2024 Travel 09/15/2024 10:42 AM CDT - 09/15/2024 2:00 PM CDT Emergency ER at [address] [address] Chele Olivo MD Chest pain, unspecified type; Homelessness; Alcohol abuse Discharge Disposition: Home or Self Care 09/15/2024 Travel 09/14/2024 4:34 PM CDT - 09/14/2024 5:59 PM CDT Emergency ER at [address] [place] [address] Chele Olivo MD Drug-seeking behavior (Primary Dx); [...] medical care, and heating? Somewhat hard 09/21/2024 [facility] [place] [facility] Occupat ional Health - Occupational Stress [...] any time in the past 12 m [facility], were you homeless or living in a fpc (including now)? Patient unable to answer 09/21/2024 [...] resultswithin the time period is included. Pathologist [facility] Glucose WB/POC 138(H) 70 - 125 mg/dL 09/23/2024 11:40 AM CDT [facility] Specimen Type Arterial/C apillary 09/23/2024 11:40 AM CDT [facility] Blood BLOOD SPECIMEN / Unknown 09/23/2024 11:35 AM CDT 09/23/2024 11:40 AM CDT Akil Flores DO LAB - POINT OF CARE ORDERAB LES Final Result [facility] [address] * (ABNORMAL) HEMOGLOBIN A1C (09/21/2024 3:52 AM CDT) Pathologist [facility] Hemoglobin A1c 9.3(H) 4.2 - 5.6 % 09/21/2024 4:44 AM CDT [facility] Estimated Average Glucose 220 mg/dL 09/21/2024 4:44 AM CDT [facility] Blood BLOOD SPECIMEN / Unknown Lab [...] MD LAB - CHEMISTRY ORDERABLES Final Result [facility] [address] * (ABNORMAL) CBC W/O DIFFERENTIAL (09/21/2024 3:52 AM CDT) [facility] WBC 5.6 4.0 - 10.7 x10E9/L 09/21/2024 4:09 AM CDT [facility] RBC Count 3.60(L) 4.30 - 5.80 [...] - 36.3 g/dL 09/21/2024 4:09 AM CDT [facility] RDW-CV 14.9(H) 11.3 - 14.8 % 09/21/2024 4:09 AM CDT [facility] Platelet Count 137(L) 150 - 420 x10E9/L 09/21/2024 4:09 AM CDT [facility] MPV 10.0 7.8 - 11.4 fL 09/21/2024 4:09 AM CDT [facility] Blood BLOOD SPECIMEN / Unknown Lab Venipuncture / Unknown 09/21/2024 3:52 AM CDT 09/21/2024 4:01 AM CDT Jim Mccormack MD LAB - HEMATOLOGY ORDERABLES Kathya ramirez Result [facility] [address] * (ABNORMAL) BASIC METABOLIC PANEL (CALCIUM TOTAL) (09/21/2024 3:52 AM CDT) Glucose 285(H) 70 - 125 mg/dL 09/21/2024 4:24 AM CDT [facility] Sodium 145 136 - 145 mmol/L 09/21/2024 4:24 AM CDT [facility] Potassium 3.7 3.4 - 5.1 mmol/L 09/21/2024 4:24 AM CDT [facility] Chloride 108(H) 98 - 107 mmol/L 09/21/2024 4:24 AM CDT [facility] CO2 24 22 - 29 mmol/L 09/21/2024 4:24 AM CDT [facility] Calcium 7.76(L) 8.4 - 10.2 mg/dL 09/21/2024 4:24 AM CDT [facility] Anion Gap 13 6 - 16 mmol/L 09/21/2024 4:24 AM CDT [facility] BUN 9.7 8.4 - 25.7 mg/dL 09/21/2024 4:24 AM CDT [facility] Creatinine 0.82 0.72 - 1.25 mg/dL 09/21/2024 4:24 AM CDT [facility] eGFR >90 >90 mL/min/1.7 3m2 09/21/2024 4:24 AM CDT [facility] Comment:The GFR result was c alculated using the updated CKD-EPI Creatinine Equation (2020). Blood BLOOD SPECIMEN / Unknown Lab Venipuncture / Unknown 09/21/2024 3:52 AM CDT 09/21/2024 4:01 AM CDT us Jim Mccormack MD LAB - CHEMISTRY ORDERABLES Final Result Performing Organization Address City/[facility]/[place] de Phone Number [facility] [address] * (ABNORMAL) PHOSPHORUS BLOOD (09/21/2024 3:52 AM CDT) Phosphorus 2.0(L) 2.5 - 4.5 mg/dL 09/21/2024 4:21 AM CDT [facility] Blood BLOOD SPECIMEN / Unknown Lab Venipuncture / Unknown 09/21/2024 3:52 AM CDT 09/21/2024 4:01 AM CDT us Jmi Mccormack MD LAB - CHEMISTRY ORDERABLES Final Result Performing Organization Address [facility] Phone Number [facility] [address] * MAGNESIUM BLOOD (09/21/2024 3:52 AM CDT) Only the most recent of3 resultswithin the time period is included. Magnesium 1.7 1.6 - 2.6 mg/dL 09/21/2024 4:21 AM CDT [facility] Blood BLOOD SPECIMEN / Unknown Lab Venipuncture / Unknown 09/21/2024 3:52 AM CDT 09/21/2024 4:01 AM CDT us Jim Mccormack MD LAB - CHEMISTRY ORDERABLES Final Result Performing Organization Address [facility]/[place] de Phone Number [facility] [address] * VITAMIN B12 (09/21/2024 3:52 AM CDT) Vitamin B12 582 213 - 816 pg/mL 09/21/2024 5:07 AM CDT [facility] Blood BLOOD SPECIMEN / Unknown Lab Venipuncture / Unknown 09/21/2024 3:52 AM CDT 09/21/2024 4:01 AM CDT Jim Mccormack MD LAB - CHEMISTRY ORDERABLES Final Result [facility] [address] * (ABNORMAL) LIPID PROFILE (09/21/2024 3:52 AM CDT) Pathologist [facility] Cholesterol 130 <200 mg/dL 09/21/2024 4:22 AM [...] CHEMISTRY ORDERABLES Final Result Performing Organization Address City/State/[facility] Co de Phone Number [facility] [address] * (ABNORMAL) CBC W AUTO DIFFERENTIAL (09/20/2024 1:25 PM CDT) Only the most recent of3 resultswithin the time period is included. [facility] Signature WBC 7.4 4.0 - 10.7 x10E9/L 09/20/2024 2:02 PM CDT [facility] RBC Count 3.93(L) 4.30 - 5.80 x10E12/L 09/20/2024 2:02 PM CDT [facility] Hemoglobin 13.1(L) 13.3 - 17.5 g/dL 09/20/2024 2:02 PM CDT [facility] Hematocrit 37.8(L) 38.7 - 51.1 % 09/20/2024 2:02 PM CDT [facility] MCV 96.2 80.0 - 98.0 fL 09/20/2024 2:02 PM CDT [facility] MCH 33.3 26.7 - 33.6 pg 09/20/2024 2:02 PM CDT [facility] MCHC 34.7 31.7 - 36.3 g/dL 09/20/2024 2:02 PM CDT [facility] RDW-CV 14.6 11.3 - 14.8 % 09/20/2024 2:02 PM T [facility] Platelet Count 145(L) 150 - 420 x10E9/L 09/20/2024 2:02 PM CDT [facility] MPV 9.8 7.8 - 11.4 fL 09/20/2024 2:02 PM [facility] Neutrophil % 68.0 41.0 - 74.0 % 09/20/2024 2:02 PM T [facility] Lymphocyte % 22.7 17.0 - 47.0 % 09/20/2024 2:02 PM CDT [facility] Monocyte % 8.5 3.0 - 11.0 % 09/20/2024 2:02 PM CDT [facility] Eosinophil % 0.0 0.0 - 7.0 % 09/20/2024 2:02 PM CDT [facility] Basophil % 0.5 0.0 - 1.6 % 09/20/2024 2:02 PM CDT [facility] Immature Granulocytes % 0.3 0.0 - 1.0 % 09/20/2024 2:02 PM CDT [facility] Neutrophil Absolute 5.01 1.60 - 7.50 x10E9/L 09/20/2024 2:02 PM CDT [facility] Lymphocyte Absolute 1.67 1.00 - 4.40 x10E9/L 09/20/2024 2:02 PM CDT [facility] Monocyte Absolute 0.63 0.15 - 1.00 x10E9/L 09/20/2024 2:02 PM CDT [facility] Eosinophil Absolute 0.00 0.00 - 0.60 x10E9/L 09/20/2024 2:02 PM CDT [facility] Basophil Absolute 0.04 0.00 - 0.13 x10E9/L 09/20/2024 2:02 PM T [facility] Blood BLOOD SPECIMEN / Unknown Venipuncture / Unknown 09/20/2024 1:25 PM CDT 09/20/2024 1:31 PM CDT us Kvng Moreno MD LAB - HEMATOLOGY ORDERABLES F inal Result [facility] [address] [place], [place] [id number] [place] [address] * (ABNORMAL) COMPREHENSIVE METABOLIC PANEL (09/20/2024 1:25 PM CDT) Only the most recent of3 resultswithin the time period is included. Glucose 299(H) 70 - 125 mg/dL 09/20/2024 2:02 PM T [facility] Sodium 147(H) 136 - 145 mmol/L 09/20/2024 2:02 PM T [facility] Potassium 3.0(LL) 3.4 - 5.1 mmol/L 09/20/2024 2:02 PM T [facility] Chloride 105 98 - 107 mmol/L 09/20/2024 2:02 PM T [facility] CO2 26 22 - 29 mmol/L 09/20/2024 2:02 PM T [facility] Calcium 8.27(L) 8.4 - 10.2 mg/dL 09/20/2024 2:02 PM T [facility] Anion Gap 16 6 - 16 mmol/L 09/20/2024 2:02 PM T [facility] BUN 8.3(L) 8.4 - 25.7 mg/dL 09/20/2024 2:02 PM T [facility] Creatinine 0.84 0.72 - 1.25 mg/dL 09/20/2024 2:02 PM T [facility] Alkaline Phosphatase 104 40 - 150 U/L 09/20/2024 2:02 PM CDT [facility] ALT 28 7 - 42 U/L 09/20/2024 2:02 PM T [facility] AST 36(H) 5 - 34 U/L 09/20/2024 2:02 PM CDT [facility] Protein Total 6.0(L) 6.4 - 8.3 [...] >90 mL/min/1.7 3m2 09/20/2024 2:02 PM CDT [facility] Comment:The GFR result was c alculated using the updated CKD-EPI Creatinine Equation (2020). Blood BLOOD SPECIMEN / Unknown Venipuncture / Unknown 09/20/2024 1:25 PM CDT 09/20/2024 1:31 PM CDT Kvng Moreno MD LAB - CHEMISTRY ORDERABLES Fi nal Result Performing Organization Address City/[facility]/ZIP Co de Phone Number [facility] [address] * (ABNORMAL) LIPASE BLOOD (09/20/2024 1:25 PM CDT) Only the most recent of3 resultswithin the time period is included. Lipase 6(L) 8 - 78 U/L 09/20/2024 1:50 PM CDT [facility] Blood BLOOD SPECIMEN / Unknown Venipuncture / Unknown 09/20/2024 1:25 PM CDT 09/20/2024 1:31 PM CDT Kvng Moreno MD LAB - CHEMISTRY ORDERABLES Fi nal Result Performing Organization Address City/[facility]/ZIP Co de Phone Number [facility] [address] * (ABNORMAL) ALCOHOL ETHYL BLOOD (09/20/2024 [...] ORDERABLES Fi nal Result Performing Organization Address City/[facility]/ZIP Co de Phone Number [facility] [address] * EKG 12-Lead (09/16/2024 1:21 PM CDT) Only the most recent of3 resultswithin the time period is included. 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) low-voltage QRS complexes in the lateral precordial leads Abnormal ECG When compared with ECG of 15-SEP-2024 10:38, No significant change was found Confirmed by MD IMELDA, [facility] ([id number]) on 09/17/2024 9:42:27 AM [facility] 09/16/2024 1:21 PM CDT 09/17/2024 9:42 AM CDT us Chele Olivo MD ECG ORDERABLES Edited Res ult - Final [employer] [facility] * TROPONIN-I HIGH SENSITIVE REFLEX 1HOUR (09/15/2024 12:14 PM CDT) Troponin I High Sensitive 13 <=35 ng/L 09/15/2024 12:42 PM CDT [facility] Delta Troponin I HS <0 <6 ng/L 09/15/2024 12:42 PM CDT [facility] Blood BLOOD SPECIMEN / Unknown Venipuncture / Unknown 09/15/2024 12:14 PM CDT 09/15/2024 12:17 PM CDT Chele Olivo MD LAB - CHEMISTRY ORDERABLES Final Result [facility] [address] [place], [place] [id number] [place] [address] * XR CHEST 2VW (09/15/2024 11:06 AM [...] of2 resultswithin the time period is included. [facility] Troponin I High Sensitive 14 <=35 ng/L 09/15/2024 11:31 AM CDT [facility] Blood BLOOD SPECIMEN / Unknown Venipuncture / Unknown 09/15/2024 10:55 AM CDT 09/15/2024 11:03 AM CDT Chele Olivo MD LAB - CHEMISTRY ORDERABLES Final Result [facility] [address] * (ABNORMAL) PT-INR (09/15/2024 10:55 AM CDT) [facility] PT 14.0 11.3 - 14.8 sec 09/15/2024 11:17 AM CDT [facility] INR 1.08(L) 2 - 3 09/15/2024 11:17 AM CDT [facility] Blood BLOOD SPECIMEN / Unknown Venipuncture / Unknown 09/15/2024 10:55 AM CDT 09/15/2024 11:03 AM CDT Narrative [facility] - 09/15/2024 11:17 AM CDT Recommended therapeutic INR ranges for Oral Anticoagulant Therapy: 2.0-3.0 For prevention of Thrombosis or Embolism and treatment of Venous Thrombosis. 2.5- 3.5 for prevention of Recurrent Embolism or treatment of patients with Mechanical Prosthetic Heart Valves. Chele Olivo MD LAB - COAGULATION ORDERABL ES Final Result [facility] [address] * B-TYPE NATRIURETIC PEPTIDE (09/15/2024 10:55 AM CDT) [facility] BNP 49 10 - 100 pg/mL 09/15/2024 11:29 AM CDT [facility] Blood BLOOD SPECIMEN / Unknown Venipuncture / Unknown 09/15/2024 10:55 AM CDT 09/15/2024 11:03 AM CDT Chele Olivo MD LAB - CHEMISTRY ORDERABLES Final Result [facility] [address] [place] [address], [facility] * CT ABDOMEN AND PELVIS W IV CONTRAST [id number] (09/14/2024 5:09 PM CDT) Anatomical Region Laterality [...] lt * XR CHEST 1 VW PORTABLE [id number] (09/14/2024 4:55 PM CDT) Anatomical Region Laterality Modality Chest Computed Radiogr aphy 09/14/2024 6:22 PM CDT Impressions 09/14/2024 6:23 PM CDT IMPRESSION: No radiographic evidence of active cardiac/pulmonary disease. > Interpreting Provider: Rocky Dawkins MD on 09/14/2024 6:23 PM Narrative 09/14/2024 6:23 PM CDT PROCEDURE: XR CHEST 1VW PORTABLE, DATE/TIME OF EXAM: 09/14/2024 4:55 PM, LOCATION [facility] INDICATION: R07.9: Chest pain, unspecified type [...] PORTABLE, DATE/TIME OF EXAM: 09/14/2024 4:55PM, LOCATION [facility] INDICATION: R07.9: Chest pain, unspecified type [...] MD on 09/14/2024 6:23 PM Hilda Villalobos RED LEADER-MOTORCYCLE TECHNICIAN DIAGNOSTIC IMAGING ORDERAB LES Final Result * AMYLASE BLOOD (09/14/2024 4:31 PM CDT) Amylase 37 25 - 125 U/L 09/14/2024 5:24 PM CDT [facility] Blood BLOOD SPECIMEN / Unknown Venipuncture / Unknown 09/14/2024 4:31 PM CDT 09/14/2024 4:39 PM CDT Chele Olivo MD LAB - CHEMISTRY ORDERABLES Final Result [facility] [address] [place] [address], [facility] from Last [address] [place] [address] MEDICARE [facility] MANAGED MEDICARE ADV Advance Directives * Full Code (Latest Code Status on File) Date Activated Date Inactivated Comments 09/20/2024 2:46 PM 09/23/2024 3:17 PM Care Teams Railroad Track Inspector Relationship Specialty Start Date End Date Jamal Reddy DO [phone] [place] [address] PCP - General 09/21/24
--- OUTSIDE RECORDS SUMMARY | 2024-09-28 21:13 | XMS_ITS | Patient Health Record ---
Author Organization [facility] Address [address] [address] Care Team Providers Care Stitching Department Supervisor Name Role Phone Felix Per Unavailable [phone] Jamal Reddy DO Unavailable Unavailable Sanjay Strickland Unavailable [phone] Reason For Referral No Information Plan Of Treatment No Information Insurance Providers Payer Name Payer Address Payer Phone Subscriber Number Group Number Insured Name Patient Relationship to Insured Coverage Start Date Coverage End Date Adele ARNOLD [employer] H[employer] [address] [address] [place] [address] [phone] [id number] Marcel Spencer Self - patient is the insured
--- OUTSIDE RECORDS SUMMARY | 2024-09-28 21:15 | XMS_ITS | Continuity of Care Document ---
Author Organization formerly [facility]. If a dditional information is needed, contact Health Information Management at [phone] Address [address] [place] [address] Phone Care Team Providers Care Procurement Inspector Name Role Phone Unavailable Unavailable Unavailable Unavailable [...] Unavailable Unavailable Unavailable Unavailable Unavailable Note Terese Mejia R1 - [facility] ([facility])Discharge SummaryREPORT#:[id number] REPORT STATUS: SignedDATE:09/12/24 TIME: 1205PATIENT: RAMAN BERNAL UNIT #: [id number]#: [id number] [address]AGE: 59 SEX: M ATTEND: [facility] AUTHOR: Roberto Gudino MD R1REP SRV REP [...] has been recently drinking, his last drink wasyeer. States that he drinks 64 oz of [...] MISCELLANEOUS .CANCEL AT DISCHARGE Instructions: Completed by [facility]: 09/11/2024PANTOPRAZOLE (PROTONIX) 40 MG TAB.EC 40 MILLIGRAM ORAL DAILY Days = 30 Qty = 39ObjectiveVS/I OLast Documented: Result Date Time B/P 135/74 09/12 0752 Pulse 92 09/12 0752 Pulse Ox 96 09/12 716 B/P Mean 94.5 09/12 716 O2 Delivery Room air 09/12 716 Temp 98.1 09/12 716 Resp 18 09/12 028986 hour I O ending at 0700: 09/12 0700 09/11 1900 Intake Total 120 Output Total Balance 120 Intake, Oral 120 Number 1 Bowel Movements Number Voids 2PATIENT WEIGHT:Weight (lb):Weight (oz):Weight (kg): 82.409ResultsFindings/Data:Laboratory Tests: 09/12 09/12 09/12 09/12 09/11 0718 0538 0346 0345 1958 Chemistry Sodium (136 - 145 mmol/L) 141 [...] GFR (CKD-EPI 2020) (>90.0) > 90 09/12 034 BUN/Creatinine Ratio (4 - 33) 6 09/12 [...] (0 - 34 U/L) 41 H 09/12 0346 ALT (10 - 49 U/L) 40 09/12 0346 Alkaline Phosphatase (46 - 116 U/L) 115 09/12 0346 Troponin I High Sens (<54 ng/L) 20 09/11 0640 C-Reactive Protein (0.0 - 0.5 mg/dL) < 0.5 09/11 1823 B-Natriuretic Peptide (0 - 100.0 pg/ml) 147.5 H 09/11 0523 Total Protein (5.7 - 8.2 g/dL) 6.1 09/12 0346 Albumin (3.2 - 4.8 g/dL) 3.7 09/12 0346 Globulin (1.4 - 4.8 g/dL) 2.4 09/12 0346 Albumin/Globulin Ratio (0.7 - 3.6) 1.5 09/12 034 Hematology WBC (4.0 - 10.5 10 3/uL) 5.4 09/12 034 RBC (4.63 - 6.08 10 6/uL) 3.99 L 09/12 0345 Hgb (13.7 - 17.5 g/dL) 13.0 L 09/12 344 Hct (40.1 - 51.0 %) 38.2 L 09/12 344 MCV (79.0 - 92.2 fL) 95.7 H 09/12 0345 MCH (25.7 - 32.2 pg) 32.6 H 09/125 MCHC (32.3 - 36.5 g/dL) 34.0 09/12 344 RDW (11.6 - 14.4 %) 14.9 H 09/12 344 Plt Count (150 - 400 10 3/uL) 194 09/12 344 MPV (9.4 - 12.4 fL) 10.0 09/11 0440 Immature Gran % (0.0 - 0.4 %) 0.2 09/11 0440 Neutrophils % (34.0 - 67.9 %) 48.5 09/11 0440 Lymphocytes % (21.8 - 53.1 %) 35.8 09/12 439 Monocytes % (5.3 - 12.2 %) 11.9 09/12 439 Eosinophils % (0.8 - 7.0 %) 2.6 09/12 439 Basophils % (0.2 - 1.2 %) 1.0 09/12 439 Nucleated RBC % (0.0 - 0.2 %) 0.0 09/12 439 Immature Gran # (0.00 - 0.03 10 3/uL) 0.01 09/12 439 Neutrophils # (1.78 - 5.38 10 3/uL) 2.45 09/12 439 Lymphocytes # (1.32 - 3.57 10 3/uL) [...] Cobb MD ISABELLA MACKAY MD 09/14/242054:AttestationsTeaching Physician Sdsbtjdmorh1pq visit w/o resident:I saw the patient. I agree with the findings and the plan of careas documented in the resident s note.Time spent >40min at 1212 at 6387RPT#:[id number] OF REPORT Reza Carbajal MD-13-Sep-19 Activity Up ad gayathri Inderjit Britt-11-Sep-2024 [facility])Pharmacy Prog.Note-Med RecREPORT#:[id number] REPORT STATUS: SignedDATE:09/11/24 TIME: 0710PATIENT: RAMAN BERNAL UNIT #: [id number]#: [id number] [facility]AGE: 59 SEX: M ATTEND: [...] updated ADR information, issues clarifiedComments:Please call x [facility] extension with questions regarding the medicationreconciliation for this patient. Thank you! at 0711 at 1054RPT#:[id number] OF REPORT [id number] [facility] ([facility])Hospitalist History PhysicalREPORT#:[id number] REPORT STATUS: SignedDATE:09/11/24 TIME: 0640PATIENT: RAMAN BERNAL UNIT #: [id number]#: [id number] [facility]AGE: 59 SEX: M ATTEND: Yasmine Cobb MDADM AUTHOR: Edward Duran MD R1REP SRV REP [...] Tests 09/11 09/11 09/11 09/11 0640 0523 7980 0436 Chemistry Sodium (136 - 145 mmol/L) 143 [...] 285Radiology data:Recent Impressions:RADIOLOGY - CHEST PORTABLE 09/11 9530 Report Impression - Status: SIGNED Entered: 09/11/2024 0525IMPRESSION:The cardiomediastinal silhouette is unremarkable.Nondisplaced sternotomy wires.No evidence of focal airspace consolidation, pulmonary edema,pleural effusions, or pneumothorax.The osseous structures are unremarkable.Electronically signed by: Yoel Butelr DO 09/11/2024 05:22 AMEDT RPWorkstation: [id number] By: CLAUDIA Butler DOResults: labs reviewed, vital [...] since adolescence-CT abdomen and Pelvis 08/26/2024: Hepatic steatosis-[place] protocol in place , Ativan p.r.n., thiamine, folic acidType 2 diabetes mellitus not on chronic insulin, uncontrolled-Blood glucose on admission 367-A1c 09/04/2024: 9.6-Hold home Jardiance 10 mg p.o. daily, glipizide 5 mg p.o. b.i.d., hcrwbbvqi3578 mg p.o. 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 at 1347 at 1437RPT#:[id number] OF REPORT [facility] ([facility])EMERGENCY PROVIDER REPORTREPORT#:[id number] REPORT STATUS: SignedDATE:09/11/24 TIME: 0457PATIENT: RAMAN BERNAL UNIT #: [id number]#: [id number] ROOM/BED: [facility]-ADOB: [birth year] AGE: 59 SEX: M PCP PHYS: Walker Lui MDSERVICE AUTHOR: Brendan Rogers MD R3REP SRV REP SRV TM: 0457* ALL edits [...] 14 Days #14 PATCH Prov: 08/29/24 DC: 09/04/24 225 Patient stopped takingReported MedicationsMed List Information (*Med [...] stroke and seizurePast Surgical History:Reports: CABG.Additional Surgical AprhvhuW51-E8 vertebral fracture in 2011 with surgery in [...] [facility]. [...] remains mildly intoxicated, discussed need for admission,will Mayman act patient, patient is currently unsafe to go home at this time,will admit patient for intractable pain, and social work, case making machine operator consultfor his chronic alcohol abuse, patient is currently agreeable stay, howeverthreatening to leave, discussed act with patient,Decision rules scores evaluated:Medications given [...] for HospitalizationIntoxication, chest pain )( Accepted Time 05 )( Accepted Date 09/11/24 Call Information will [...] patient has been stabilized within the capability [facility] emergency department. The patient will be transported [...] 09/11 0431 O2 Delivery Room air 09/11 430 Temp 36.5 09/11 430 Pulse 91 09/11 430 Resp 16 09/11 0431Last Documented: Result Date Time Pulse Ox 95 09/11 0528 B/P 106/65 09/12 527 O2 Delivery Room air 09/12 527 Pulse [...] (mg/dL) 285Recent Impressions:RADIOLOGY - CHEST PORTABLE 09/11 4175 Report Impression - Status: SIGNED Entered: 09/11/2024 0525IMPRESSION:The cardiomediastinal silhouette is unremarkable.Nondisplaced sternotomy wires.No evidence of focal airspace consolidation, pulmonary edema,pleural effusions, or pneumothorax.The osseous structures are unremarkable.Electronically signed by: Yoel Butler DO 09/11/2024 05:22 AMEDT RPWorkstation: [id number] By: CLAUDIA Robertson-Evaluation MDMED CourseMedication(s) OrderedMedication(s) Ordered:Central [...] withthis resident's findings, exam and plan. at 0607 at 0351RPT#:[id number] OF REPORT Chava Parsons MD --Aug-2024 [facility] ([facility])Discharge SummaryREPORT#:[id number] REPORT STATUS: SignedDATE:09/10/24 TIME: 1427PATIENT: BERNAL,RAMAN UNIT #: [id number]#: [id number] [facility]AGE: 59 SEX: M ATTEND: Colton Nolan MDADM AUTHOR: Alessandro Larsen MD R2REP SRV REP [...] he is visiting his brother Becca from [place]. His nephew recently and he has been [...] abdomen and Pelvis from 08/25/2024 reveals hepatic steatosis-[facility] protocol in place , Ativan p.r.n., thiamine, [...] 09/10 1057 O2 Delivery Room air 09/10 105 Temp 36.5 09/10 1057 Pulse 82 09/10 1057 Resp 18 09/10 298599 hour I O ending at 0700: 09/10 0700 09/09 1900 Intake Total Output Total Balance Patient 80.455 kg Weight Weight Stated/Reported Measurement MethodPATIENT WEIGHT:Weight (lb):Weight (oz):Weight (kg): 80.455ResultsFindings/Data:Laboratory Tests: 09/10 09/10 09/10 09/09 09/09 1115 0603 0323 1943 1930Chemistry Sodium (136 - 145 mmol/L) 145 Potassium [...] # (0.00 - 0.18 10 3/uL) 0.00 09/09 09/09 09/09 1603 1554 1554 Chemistry [...] follow up timeframe: In 1-2 weeksAttestationsTeaching Physician Khjgpeggays1bs visit w/o resident:I performed a history and [...] MISCELLANEOUS .CANCEL AT DISCHARGE Instructions: Completed by [facility]: 09/11/2024Start taking the following new medications:PANTOPRAZOLE (PROTONIX) 40 MG TAB.EC 40 MILLIGRAM ORAL DAILY Days = 30 Qty = 39 Refills = 1AttestationsTeaching Physician Raenqwzpyun4yu visit w/ resident:I personally completed an interview [...] Alessandro Larsen MD R1 for Edgard Nolan MDspital course:This is a 59-year-old male with past medical history of coronaryartery disease and CABG in 2023, alcohol use disorder, diabetes mellitus type 2with neuropathy, history of stroke and seizure on Kera who presents due to theED with chief complaint of chest pain. Patient reports that he is visiting hisbrother in [place] from [place]. Patient was hospitalized 1 week ago for [...] to follow up in 1-2 weeks. at 1055RPT#:[id number] OF REPORT Omar Collins-09-Sep-2024 [facility] ([facility])Pharmacy Prog.Note-Med RecREPORT#:[id number] REPORT STATUS: SignedDATE:09/09/24 TIME: ATIENT: RAMAN BERNAL UNIT #: [id number]#: [id number] [facility]AGE: 59 SEX: M ATTEND: Colton Nolan MDADM AUTHOR: Karina NelsonREP SRV REP SRV TM: 2040* ALL edits or amendments must be made on the electronic/computer document *Karina Nelson 09/09/24 204:Pharmacy Med History ReviewPrimary Care ProviderPCP: PCP: Walker [...] updated ADR information, issues clarifiedComments:Please call x [facility] extension with questions regarding the medicationreconciliation for this patient. Thank you! at 5826 at 1202RPT#:[id number] OF REPORT JANENE Travis MD-10-Sep-19 25 [facility] ([facility])Hospitalist History PhysicalREPORT#:[id number] REPORT STATUS: SignedDATE:09/09/24 TIME: 1856PATIENT: RAMAN BERNAL UNIT #: [id number]#: [id number] [facility]: 63AGE: 59 SEX: M ATTEND: Colton Nolan MDADM AUTHOR: CLAUDIA ARMIREZ MD R2REP SRV REP SRV TM: 1856* ALL edits or amendments must be made [...] he is visiting his brother Becca from [place]. His nephew recently and he has been [...] 1,250 MCG PO Grey 08/26/24 (Vitamin D2) 0715Strength: 1,250 MCG (50,000UNIT) CAP Dulaglutide (Trulicity) 0.75 MG SUBQ Grey 08/26/24Strength: 0.75 MG/0.5 ML 0717PEN.INJCTR Cyanocobalamin (Vitamin 1,000 MCG PO DAILY 08/26/24 B- 12) 07 (Vitamin B-12)Strength: 1,000 MCG TAB Folic Acid 1 MG PO DAILY 08/26/24Strength: 1 MG TAB 0717 Pyridoxine (Vitamin B6) 100 MG PO DAILY 08/26/24 (Vitamin B-6) 07Strength: 100 MG TAB Magnesium Oxide 400 MG PO DAILY 08/26/24 (Mag-Ox 400) 07rength: 400 MG (241.3 MGMAGNESIUM) TAB Atorvastatin (Lipitor) [...] MG PO QAM 09/04/24Strength: 10 MG TAB 2247 amLODIPine (Norvasc) 10 MG PO DAILY 30 [...] 2099 AC 09/09 (LOPRESSOR 25 MG PO 2030 TABLET)Central Nervous System Agents Sig/Darshana Start time [...] Lorazepam 4 MG Q1H PRN PRN 09/09 1846 AC (ATIVAN 2 MG/1 ML IV VIAL) Ketorolac 15 MG X1ED STA 09/09 1340 DC 09/09 Tromethamine IV 09/09 1341 1422 (TORADOL 15 MG/ML VIAL)Devices Sig/Darshana Start time Last Medication Dose Route Stop Time Status Admin Sodium Chloride 10 ML Q12HR 09/09 2099 AC 09/09 (NORMAL SALINE LOCK/ IV 2031 FLUSH) Sodium Chloride 10 ML ASDIR PRN 09/09 183 AC (NORMAL SALINE LOCK/ IV FLUSH)Electrolytic, Caloric, And Lety Sig/Darshana Start time Last Medication Dose Route Stop Time Status Admin Dextrose 16 GM ASDIR PRN 09/09 1856 AC (GLUCOSE 4 GM TABLET) PO Dextrose/Water See Dose ASDIR PRN 09/09 1857 AC (DEXTROSE 50%/WATER Insts (1) IV 50 ML ABBOJECT) Sodium Chloride 1,000 ML X1ED STA 09/09 1334 DC 09/09 (SODIUM CHLORIDE IV 09/09 1433 1424 0.9% 1000 ML SOLN)Gastrointestinal Drugs Sig/Darshana Start time Last Medication Dose Route Stop Time Status Admin Pantoprazole Sodium 40 MG DAILY@0600 09/10 0600 AC Sesquihydrate PO (PROTONIX 40 MG TABLET)Hormones And Synthetic Substit Sig/Darshana Start time Last Medication Dose Route Stop Time Status Admin Insulin Human Regular See Dose AC HS 09/09 2100 AC 09/09 (HUMULIN R 100 UNITS/ Insts (2) SUBQ 2028 ML VIAL)Skin And Mucous Membrane Agent Sig/Darshana Start time Last Medication Dose Route Stop Time Status Admin Lidocaine 1 PATCH X1ED STA 09/09 1340 DC 09/09 (LIDOCAINE 4% PATCH) TRANSDERM 09/09 1341 1422Vitamins Sig/Darshana Start time Last Medication Dose Route Stop Time Status Admin Folic Acid 1 MG DAILY 09/10 1847 AC 09/09 (FOLIC ACID 1MG PO 2026 TABLET) Thiamine HCl 100 MG DAILY 09/10 1847 AC 09/09 (VITAMIN B1 100MG PO 2037 [...] 91 151/87 09/09 1931 36.4 91 16 15187 108.1 96 Room air 09/09 1730 36.8 [...] 1,000 ML X1ED STA IV(DC)ResultsFindings/Data:Laboratory Tests 09/09 1554 1554 Chemistry Sodium (136 - 145 [...] Dale Kendall MD 09/09/2024 02:04 PMEDT RPWorkstation: [id number] By: GURVINDER MAGANAesults: labs reviewed, vital signs reviewed, x-ray personally [...] he is visiting his brother Becca from [place]. His nephew recently and he has been drinkingmore alcohol than usual. This morning he woke up and started having constantleft- sided chest pain. Patient states that since his CABG in 12/10 he has beenhaving constant chest pain which is progressively worsened located towards midsternal region, nonradiating, rated 8/10 in severity, described it as sharp/sorepain, aggravated with cough, no alleviating factors and denies any associatedshortness of breath, change in vision, headaches, nausea/vomiting.Assessment and planNoncardiac chest pain- Etiology likely secondary to Costochodritis vs Gastritis-Tropes negative x2, BNP 38.6- EKG: Normal sinus rhythm, HR 86, Q-wave in [...] abdomen and Pelvis from 08/25/2024 reveals hepatic steatosis-[facility] protocol in place , Ativan p.r.n., thiamine, [...] daily.-acute alcohol intoxication. Started the patient on CIWA protocol.Patient seen and examined at bedside with Dr. Cobb, attending physician.YASMINE COBB MD 09/12/24 1400:HistoryMedication/Allergy-Vaccine HxAllergies:Coded Allergies:No Known Allergies (09/11/24)AttestationsPhysician AttestationAgree w/findings plan:The patient was admitted to the hospital overnight through a verbal order by meand a plan of care was established with the resident. I agree with the resident's findings and plan as documented at 2053 at 1401RPT#:[id number] OF REPORT Jose R Denton DO D0-55-Qzb09-Sep-2024 [facility])EMERGENCY PROVIDER REPORTREPORT#:[id number] REPORT STATUS: SignedDATE:09/09/24 TIME: 1338PATIENT: RAMAN BERNAL UNIT #: [id number]#: [id number] [address]FTJ: 63 AGE: 59 SEX: M PCP PHYS: Walker Lui MDSERVICE AUTHOR: Bertin Odell DO R1REP SRV [...] Report Impression - Status: SIGNED Entered: 09/09/2024 5685IMPRESSION:No acute cardiopulmonary disease.Electronically signed by: Dale Kendall MD 09/09/2024 02:04 PMEDT RPWorkstation: [id number] By: JAMIL KENDALL, Hood- Evaluation MDMFree Text MDM NotesAdditional TextComplexity of [...] DecisionHospitalize Hosp Physician Name Yasmine Cobb MD [facility] Physician Hospitalist Request Time 1811 Request Date [...] scribed by Preet Ravi on 09/09/24 at 133JOVANNI VELÁSQUEZ MD 09/13/24 1934:Review of SystemsROS StatementsAll systems [...] Ref 1ReferralsProvider Referral: Walker Lui MD Address: [address] [place] [address]. [place], [place] [address]Quality Psovdkhu07-Nlwx ECG for CP Performed documentedSupervising Physician Note [...] findings, exam and plan. at 0642 at 1936RPT#:[id number] OF REPORT Reza Carbajal MD-06-Sep-19 Activity Bathroom privilegesActivity TurnActivity: Resume nrm Chava Parsons MD -04-Sep-2024 [facility] ([facility])Hospitalist History PhysicalREPORT#:[id number] REPORT STATUS: SignedDATE:09/04/24 TIME: ATIENT: RAMAN BERNAL UNIT #: [id number]#: [id number] [facility]: [birth year]AGE: 59 SEX: M ATTEND: Yasmine Cobb [...] O2 Flow FiO2 Mean Ox Delivery Rate 09/04 2145 83 09/04 2014 84 95 09/05 1999 [...] 324 MG X1ED STA PO (DC)ResultsFindings/Data:Laboratory Tests 09/04 09/04 09/04 2235 1646 1646 Chemistry Sodium (136 - 145 [...] Troponin I High Sens (<54 ng/L) 41 B- Natriuretic Peptide (0 - 100.0 pg/ml) 38.6 Total [...] pH (4.5 - 7.5) 6.5 Ur Specific [place] (1.005 - 1.030) < 1.005 L Urine Protein (NEGATIVE mg/dL) Negative Urine Ketones (NEGATIVE mg/dL) Negative Urine Blood (NEGATIVE mg/dL) Negative Urine Nitrite (NEGATIVE mg/dL) Negative Urine Bilirubin (NEGATIVE mg/dL) Negative Urine Urobilinogen (Normal mg/dL) Normal Ur Leukocyte Esterase (NEGATIVE Maira/uL) Negative Urine Glucose (NEGATIVE mg/dL) >1000 (4+) HRadiology data:Recent Impressions:RADIOLOGY - CHEST PORTABLE 09/04 7594 Report Impression - Status: SIGNED Entered: 09/04/2024 1836IMPRESSION: The lungs are clear and there is no pneumothorax orpleural effusion. The heart is mildly enlarged. Prior mediansternotomy.Electronically signed by: Abdiel Mcnair MD 09/04/2024 06:32 PMEDT RPWorkstation: [id number] By: - ABDIEL MCNAIR MDInterpretationI independently reviewed the [ ] [...] Nolan, attending physician.COLTON NOLAN 09/07/24 1850:AttestationsTeaching Physician Vmbivnybzoe1it visit w/ resident:The patient was admitted to the hospital overnight through a verbal order by meand a plan of care was established with the resident. I agree with the resident's findings and plan as documented at 0624 at 1855RPT#:[id number] OF REPORT Samantha Lan-19-Aug-2024 [facility])Pharmacy Prog.Note-Med RecREPORT#:[id number] REPORT STATUS: SignedDATE:09/04/24 TIME: ATIENT: BERNAL,RAMAN UNIT #: [id number]#: [id number] ROOM[facility]BED: [facility]-ADOB: [birth year]AGE: 59 SEX: M ATTEND: Yasmine Cobb MDADM AUTHOR: Frida Singh RREP SRV REP SRV TM: 2031* ALL edits or amendments must be made on the electronic/computer document *Frida Singh 09/04/242031:Pharmacy Med History ReviewPrimary Care ProviderPCP: PCP: No Primary or Family PhysicianPharmacy Med History ReviewSource of information: interviewed pt/caregiver, reviewed med claims dataMed Rec report: yesAllmike:Coded Allergies:No Known Allergies (08/26/24)Hanna Monaco 09/05/24 0951:Pharmacy Med History ReviewPharmacy Med History ReviewInterpreter: Starter Cup Powder Mixer: NoAdmission Med Rec:Scheduled MedicationsamLODIPine (Norvasc) 10 MG [...] updated ADR information, issues clarifiedComments:Please call x [facility] extension with questions regarding the medicationreconciliation for this patient. Thank you! at 2033 at 0959RPT#:[id number] OF REPORT Shoaib Wright APR Q-52-Wzx04-Sep-2024 [facility] ([facility])EMERGENCY PROVIDER REPORTREPORT#:[id number] REPORT STATUS: SignedDATE:09/04/24 TIME: 163PATIENT: RAMAN BERNAL UNIT #: [id number]#: [id number] ROOM[facility]BED: [facility]-ADOB: [birth year] AGE: 59 SEX: M PCP PHYS: Walker Lui MDSERVICE AUTHOR: Adriana Cramer APRNREP SRV REP SRV TM: 1638* ALL edits or amendments must be made on the electronic/computer document *Kelsea CRAMER 09/04/24 1638:HPI-General IllnessFree Text HPI NotesFree Text HPI Tgrjl21-nmjg-ltd male with past medical history of coronary [...] 09/04 161 O2 Delivery Room air 09/04 161 Temp 36.8 09/04 161 Pulse 93 09/04 [...] Memory NL, Gait NLInterpretation DiagnosticsLab Results InterpretationResultsLaboratory Tests09/04/241645:[Embedded Image Not Available]Laboratory Tests: 09/04 1906 1646 1646Chemistry POC Glucose (70 - [...] pH (4.5 - 7.5) 6.5 Ur Specific [place] (1.005 - 1.030) < 1.005 L Urine [...] (NEGATIVE) NEGATIVERecent Impressions:RADIOLOGY - CHEST PORTABLE 09/04 0137 Report Impression - Status: SIGNED Entered: 09/04/2024 1836IMPRESSION: The lungs are clear and there is no pneumothorax orpleural effusion. The heart is mildly enlarged. Prior mediansternotomy.Electronically signed by: Abdiel Mcnair MD 09/04/2024 06:32 PMEDT RPWorkstation: [id number] By: LIP.SMA Mary MCNAIR MD Lab Imaging StatementLaboratory radiographic studies [...] interpretation discussed with [Haley]. at 1245 at 0135RPT#:[id number] OF REPORT Quentin Arzola MD- 025 Activity Bathroom privilegesActivity: As Stephen Richard Parsons MD-2024 [facility] ([facility])Discharge SummaryREPORT#:[id number] REPORT STATUS: SignedDATE:08/29/24 TIME: 1408PATIENT: RAMAN BERNAL UNIT #: [id number]#: [id number] ROOM/BED: [facility]-ADOB: [birth year]AGE: 59 SEX: M ATTEND: Hayden Mares AUTHOR: Elena Ramos MD R2REP SRV REP [...] alcohol level 298 AST 52 ALT 53 alk-xrfa901. On admission, patient was in AFib RVR [...] Resp 16 08/29 1209 FiO2 21 08/29 205793 hour I O ending at 0700: 08/29 [...] Keyonna Vazquez MD 08/28/2024 01:50 PMEDT RPWorkstation: [id number] By: ALESSIA VAZQUEZ, MDDischarge InstructionsPCPPCP:PCP: Walker Lui MD)( Discharge to: Home/Self CareDischarge InstructionsAdditional Discharge Routines: PCP Follow-Up, Bicycle Ii Assembler Follow-Up)( Diet: Regular)( Activity: As ToleratedDischarge management: [...] confirm the diagnosis(es) above. at 1200 at 0820RPT#:[id number] OF REPORT Richard Parsons MD-2024 [facility])Hospitalist Progress NoteREPORT#:[id number] REPORT STATUS: SignedDATE:08/29/24 TIME: 622PATIENT: RAMAN BERNAL UNIT #: [id number]#: [id number] [facility]: 59 SEX: M ATTEND: Hayden Mares MDADM AUTHOR: Elena Ramos MD R2REP SRV REP SRV TM: 06* ALL edits or amendments must be made on the electronic/computer document *Elena Ramos 08/29/24 0623:SubjectiveChief complaint:Headache, shortness of breath, palpitations chest tightnessHPI:Patient seen and examined at bedside this morning. Per nursing no acute eventsovernight. Patient continues to complain of chest pain this morning but wasalert oriented b3RelwpmfirOznnsxkCR/I O:Vital Signs: Date Time Temp Pulse Resp [...] 08/29 08/29 08/28 1239 0853 0547 0540 2034 Chemistry Sodium (136 - 145 mmol/L) 141 Potassium (3.5 - 5.1 mmol/L) 3.9 Chloride (98 - 107 mmol/L) 109 H Carbon Dioxide (20 - 31 mmol/L) 23 Anion Gap (7 - 16 mmol/L) 9 BUN (9 - 23 mg/dL) 15 Creatinine (0.7 - 1.3 mg/dL) 0.8 Est GFR (CKD- EPI 2020) (>90.0) > 90 BUN/Creatinine Ratio (4 [...] no edemaMusculoskeletal: normal inspection, painless range of motionNeuro/CONSTRUCTION COORDINATOR: alert, oriented x3, CN II to XII [...] alcohol level 298 AST 52 ALT 53 alk-fpkw085. Patient is admitted in stable condition for [...] CABG not on any antiplatelets currently. Continue Xylraia08 mg daily.-Starting Nitro paste 1inch q6hrs, Imdur [...] CABG in 11/2023-Patient had procedure done in [place], unsure of echocardiogram results. Patient no longer takes Plavix or aspirin only takes Lipitor 40 mg.-We will start Plavix 75 mg daily during this admission since patient is lessthan 1 year out from CABG not on any antiplatelets currently. Continue Ukepcyg07 mg daily.Lateral right 7th rib fracture-Denies pain [...] Dr. Mares, attending physician.HAYDEN MARES MD 08/30/24 0729:Diagnosis, Assessment PlanAdditional comments:MR s history reviewed. The patient was interviewed and examined by me. I agreewith the assessment and care plan and confirm the diagnosis(es) above. at 1429 at 0731RPT#:[id number] OF REPORT Graf Emre Torres APRN-12- 25 [facility] ([facility])Cardiology ConsultationREPORT#:[id number] REPORT STATUS: SignedDATE:08/28/24 TIME: 1603PATIENT: RAMAN BERNAL UNIT #: [id number]#: [id number] ROOM/BED: [facility]-ADOB: [birth year]AGE: 59 SEX: M ATTEND: Hayden Mares MDADM AUTHOR: Emre Douglas APRNREP SRV REP SRV TM: 1603* ALL edits or amendments must be made on the electronic/computer document *EMRE DOUGLAS. VACUUM COOKER OPERATOR 08/28/24 1603:History of Present IllnessHPIChief complaint:Chest pain back pain like painHPI:Mr. Raman Bernal is a 59-year-old male with past medical history of CAD s/p3v CABG 12/10 [place], HTN, HLD, CVA, seizure disorder, alcohol abuse who presentedto [place] [facility] via EMS for chest pain. He reports he has been feeling headachechest pain chest tightness dyspnea started acutely and would be intermittent.He noted pain was severe. He felt similar to his DE prior to his CABG. He alsonoted back [...] 0814 Amlodipine Besylate 10 MG DAILY 08/28 09 AC PO Isosorbide 30 MG BID 08/28 0900 AC Mononitrate PO Losartan Potassium 100 MG DAILY 08/28 09 DC PO Losartan Potassium 50 MG DAILY 08/28 09 AC PO Metoprolol Succinate 50 MG DAILY [...] MG BEDTIME 08/26 2100 DC 08/27 PO 2112 Nitroglycerin 1 IN Q6HR 08/26 1800 CKD [...] Heparin Sodium 2,000 UNITS ASDIR PRN 08/26 0924 DC (Porcine) IV Heparin Sodium 4,000 UNITS ASDIR PRN 08/26 0924 DC (Porcine) IV Heparin Sodium/ 500 ML ASDIR 08/26 0924 DC 08/26 Sodium Chloride IV 1020 Miscellaneous 1 EACH ASDIR 08/26 09 DC Medication MISC Clopidogrel Bisulfate 75 MG DAILY 08/26 09 AC 08/28 PO 0815 Folic Acid 1 MG DAILY 08/26 899 AC 08/26 PO 0833 Levetiracetam 500 MG BID 08/26 899 AC 08/28 PO 0814 Lidocaine 1 PATCH DAILY 08/26 899 AC 08/26 TRANSDERM 0835 Losartan Potassium 50 MG DAILY 08/26 899 DC 08/26 PO 0833 Sodium Chloride 10 ML Q12HR 08/26 899 AC 08/28 IV 0816 Thiamine HCl 100 MG DAILY 08/26 899 AC 08/26 PO 0834 Insulin Human Regular See Dose AC HS 08/26 08 AC 08/28 Insts (1) SUBQ 0900 Sodium Chloride 10 ML ASDIR PRN 08/26 0430 AC IV Chlordiazepoxide HCl 10 MG TID 08/26 040 AC 08/28 PO 0814 Clonidine HCl 0.1 [...] minutes and notify physician for further instruction 08/28 08/28 08/28 08/28 08/27 1353 1032 [id number] 1937 Chemistry Sodium (136 - 145 mmol/L) [...] 38 Seconds) 31Laboratory Tests 08/28 08/27 08/27 0725 1229 0141 Hematology WBC (4.0 - 10.5 [...] imaging finding fixed lateral defect, no reversible lsrnzixx-Yv-srudjnxa in a couple days with the patient's status is improvedAFib-Unable to find documentation of AFib-Currently sinus rhythm on telemetry-Continue sotalolCoronary artery disease-History of three-vessel bypass 11/2023 and [place]-Continue Imdur and PlavixHypertension-Not well controlled-Increase losartan to 50 twice a day- Continue to monitor per per protocolDyslipidemia-Continue Lipitor 40Patient also has a history of CVA, seizure and alcohol abusePatient seen and examined, discussed with Dr Mccabe.ASIA MCCABE 08/28/24 1744:Diagnosis, Assessment PlanFree Text DxA P NotesFree Text DxA P Notes:Patient seen/examinedagree with above at 1610 at 1744RPT#:[id number] OF REPORT Dixon Parsons MD- 025 [facility]Hospitalist Progress NoteREPORT#:[id number] REPORT STATUS: SignedDATE:08/28/24 TIME: 0743PATIENT: RAMAN BERNAL UNIT #: [id number]#: [id number] ROOM/BED: [facility]-ADOB: [birth year]AGE: 59 SEX: M ATTEND: [...] (DC)ResultsFindings/Data:Laboratory Tests 08/28 08/28 08/27 08/27 0553 7203 193 1511 Chemistry Sodium (136 - 145 mmol/L) [...] no edemaMusculoskeletal: normal inspection, painless range of motionNeuro/CONSTRUCTION COORDINATOR: alert, oriented x3, CN II to XII [...] alcohol level 298 AST 52 ALT 53 alk-yqfe866. Patient is admitted in stable condition for [...] CABG not on any antiplatelets currently. Continue Qejgury23 mg daily.-Starting Nitro paste 1inch q6hrs, Imdur 30mg daily. Continue Aspirin, plavix,sotalol, Imdur and losartan-Stress test by cardiology: Suggestive of old infarct vs diaphragmaticattnuation. No signifcant ischemia is noted, Ejection fraction is 38%.-Cardiology on board, f/u recommendationsCoronary artery disease with CABG in 11/2023-Patient had procedure done in [place], unsure of echocardiogram results. Patient no longer takes Plavix or aspirin only takes Lipitor 40 mg.-Request records from [facility]-We will start Plavix 75 mg daily during this admission since patient is lessthan 1 year out from CABG not on any antiplatelets currently. Continue Pvhvdwv28 mg daily.Lateral right 7th rib fracture-Denies pain [...] 53 alk-phos 175-Abdomen pelvis CT reveals hepatic steatosis-[facility] protocol in place with Librium 10 mg [...] confirm the diagnosis(es) above. at 1318 at 0736RPT#:[id number] OF REPORT Dixon Parsons MD- 025 [facility]Hospitalist Progress NoteREPORT#:[id number] REPORT STATUS: SignedDATE:08/27/24 TIME: 06PATIENT: RAMAN BERNAL UNIT #: [id number]#: [id number] [facility]: [facility]: 59 SEX: M ATTEND: Hayden Mares [...] air 08/26 1615 84 135/70 08/26 1601 36.7 84 18 135/70 91.7 93 [...] (PULMICORT 0.5MG SUSPENSION) 0.5 MG RTBID INHIpratropium Emmons (ATROVENT 0.5 MG NEB) 0.5 MG ONCE ONE INH (DC)Aminophylline (AMINOPHYLLINE 500 MG/20 ML VIAL) 100 MG PROCEDURE IV (CKD)Regadenoson (LEXISCAN 0.4 MG/5 ML) 0.4 MG PROCEDURE IVSodium Chloride (NORMAL SALINE LOCK/FLUSH) 5 ML PROCEDURE FLUSHSodium Chloride (SODIUM CHLORIDE 0.9% SOLN 250 ML) 250 ML PROCEDURE IVIpratropium Emmons (ATROVENT 0.5 MG NEB) 0.5 MG ONCE [...] no edemaMusculoskeletal: normal inspection, painless range of motionNeuro/CONSTRUCTION COORDINATOR: alert, oriented x3, CN II to XII [...] alcohol level 298 AST 52 ALT 53 alk-efwp402. Patient is admitted in stable condition for [...] CABG not on any antiplatelets currently. Continue Aiyyewo13 mg daily.-Starting Nitro paste 1inch q6hrs, Imdur 30mg daily-Stress test by cardiology: Suggestive of old infarct vs diaphragmaticattnuation. No signifcant ischemia is noted, Ejection fraction is 38%.-Cardiology on board, f/u recommendationsCoronary artery disease with CABG in 11/2023-Patient had procedure done in [place], unsure of echocardiogram results. Patient no longer takes Plavix or aspirin only takes Lipitor 40 mg.-Request records from [facility]-We will start Plavix 75 mg daily during this admission since patient is lessthan 1 year out from CABG not on any antiplatelets currently. Continue Scorptp82 mg daily.Lateral right 7th rib fracture-Denies pain [...] and discussed with Dr. Mares, attending physician and Richard (PGY2)HAYDEN MARES MD 08/27/24 1521:Diagnosis, Assessment PlanAdditional comments:MR patterson history reviewed. The patient was interviewed and examined by me. I agreewith the assessment and care plan and confirm the diagnosis(es) above. at 1446 at 1524RPT#:[id number] OF REPORT Arnulfo Spain MD-2024 [facility] ([facility])Cardiology ConsultationREPORT#:[id number] REPORT STATUS: SignedDATE:08/27/24 TIME: 0420PATIENT: RAMAN BERNAL UNIT #: [id number]#: [id number] [facility] [birth year]AGE: 59 SEX: M ATTEND: Hayden Mares MDADM AUTHOR: John Arredondo MDREP SRV REP SRV TM: 1400* ALL edits or amendments must be made on the electronic/computer document *History of Present IllnessHPIReason for consult:Chest pain, NSTEMIChief complaint:Chest pain back pain like painPCP:PCP: Undefined ProviderHPI:Mr. Raman Bernal is a 59-year-old male with past medical history of CAD s/p3v CABG 12/10 [place], HTN, HLD, CVA, seizure disorder, alcohol abuse who presentedto [place] [facility] via EMS for chest pain. He reports he has been feeling headachechest pain chest tightness dyspnea started acutely and would be intermittent.He noted pain was severe. He felt similar to his [place] prior to his CABG. He alsonoted back [...] 93 Room air 08/26 1344 91 135/72 06/10 1102 97.7 91 18 135/72 93.2 95 [...] SOLN 250 ML) 250 ML PROCEDURE IVIpratropium Emmons (ATROVENT 0.5 MG NEB) 0.5 MG ONCE [...] Ratio (0.7 - 3.6) 1.5Laboratory Tests 08/27 1629 0936 Coagulation PT (10.0 - 12.8 Seconds) 14.2 H INR (0.8 - 1.1) 1.3 H APTT (25 - 38 Seconds) 68 CH > 200 CH 28Laboratory Tests 08/27 0521 Hematology WBC (4.0 - 10.5 10 [...] 736 CHLaboratory Tests 08/27 08/26 08/26 0141 1629 0936 Coagulation APTT (25 - 38 Seconds) 68 [...] documented by EMS heartrate was 91He says [facility] converted to sinus rhythm per EMSModerate tele [...] 4, magnesium 2; sotalol [place] setordered at 0433RPT#:[id number] OF REPORT Samantha Lan-26-Aug-2024 [facility] ([facility])Pharmacy Prog.Note-Med RecREPORT#:[id number] REPORT STATUS: SignedDATE:08/26/24 TIME: 721PATIENT: RAMAN BERNAL UNIT #: [id number]#: [id number] [facility] [birth year]AGE: 59 SEX: M ATTEND: Hayden Mares MDADM AUTHOR: Frida Singh RREP SRV REP SRV TM: 0722* ALL edits or amendments must be made on the electronic/computer document *Frida Singh 08/26/24 0722:Pharmacy Med History ReviewPrimary Care ProviderPCP: PCP: DOMINIK BASILIO FROM [place] [phone] Med History ReviewSource of information: interviewed pt/caregiver, reviewed med claims dataMed Rec report: KylerTwila 08/26/24 0844:Pharmacy Med History ReviewPharmacy Med History [...] 0846RPT#:[id number] OF REPORT Dixon Parsons MD- [address] [place], [place] [address]Hospitalist Progress NoteREPORT#:[id number] REPORT STATUS: SignedDATE:08/26/24 TIME: 06PATIENT: RAMAN BERNAL UNIT #: [id number]#: [id number] [facility] [birth year]AGE: 59 SEX: M ATTEND: Hayden Mares MDA AUTHOR: Therese Ortiz MD R1REP SRV REP [...] Ox Delivery Rate 08/26 1344 91 135/72 08/26 1102 36.5 91 18 135/72 93.2 95 Room air 08/26 1046 92 137/72 08/26 0833 92 137/72 08/26 0832 36.8 92 20 137/72 93.3 93 Room air 08/26 0548 92 129/60 08/26 0110 17 08/26 0100 83 119/58 [...] SOLN) 1,000 ML X1ED STA IV(DC)ResultsFindings/Data:Laboratory Tests 08/264 Blood Gas Specimen Type BLOOD Venous Puncture [...] pH (4.5 - 7.5) 7.0 Ur Specific [place] (1.005 - 1.030) 1.010 Urine Protein (NEGATIVE [...] no edemaMusculoskeletal: normal inspection, painless range of motionNeuro/CONSTRUCTION COORDINATOR: alert, oriented x3, CN II to XII [...] alcohol level 298 AST 52 ALT 53 alk-odfp217. Patient is admitted in stable condition for [...] CABG not on any antiplatelets currently. Continue Pogfypk70 mg daily.-Starting Nitro paste 1inch q6hrs, Imdur 30mg daily-Cardiology consulted f/u recommendations.Coronary artery disease with CABG in 11/2023-Patient had procedure done in [place], unsure of echocardiogram results. Patient no longer takes Plavix or aspirin only takes Lipitor 40 mg.-Request records from [facility]-We will start Plavix 75 mg daily during this admission since patient is lessthan 1 year out from CABG not on any antiplatelets currently. Continue Egtofuw84 mg daily.Lateral right 7th rib fracture-Denies pain [...] confirm the diagnosis(es) above. at 1432 at 1524RPT#:[id number] OF REPORT Dominique Hunter Q6-96-Atk26-Aug-2024 [facility] ([facility])Hospitalist History PhysicalREPORT#:[id number] REPORT STATUS: SignedDATE:08/26/24 TIME: 408PATIENT: RAMAN BERNAL UNIT #: [id number]#: [id number] ROOM[facility]BED: [facility]-ADOB: [birth year]AGE: 59 SEX: M ATTEND: [...] reports lying in bed when onset of uvysvbda5cl occurred, characterized by headache shortness of breath and chest tightness,started at 4:00 p.m. and would come and go lasting couple of minutes. He statespain located substernally and did not appreciate radiation location. He feltsimilar symptoms in November of 2023 in [place] when he had underwentCABG. Not relieved with [...] daily. Hedoes not recall echocardiogram results at [facility].Regarding alcohol use disorder, patient states he drinks [...] MG/DL, 0 UNITS 151-200 MG/DL, 2 UNITS 201- 250 MG/DL, 4 UNITS 251-300 MG/DL, 6 UNITS [...] 298 Acetone, Qual (NEGATIVE) NEGATIVELaboratory Tests 08/26 020 Urines Urine Color (YELLOW) Light Yellow Urine Appearance (CLEAR) Clear Urine pH (4.5 - 7.5) 7.0 Ur Specific [place] (1.005 - 1.030) 1.010 Urine Protein (NEGATIVE [...] Mireille Martinez MD 08/26/2024 02:56 AMEDT RPWorkstation: [id number] By: SERA MARTINEZ, BETHOMPUTERIZED TOMOGRAPHY - CT ABDOMEN/PELVIS W/ CONT 08/26 005 Report Impression - Status: SIGNED Entered: 08/26/2024 0207IMPRESSION:1. Segments of wall thickening in the right and left colon areconsistent with inflammation.2. Hepatic steatosis.3. Distended urinary bladder with enlarged prostate. Correlatewith PSA level.Interpreted by: Marylin MARTINEZ personally have reviewed the imaging as well as the resident'sinterpretation and agree with the above report.Electronically signed by: Mireille Martinez MD 08/26/2024 02:04 AMEDT RPWorkstation: [id number] By: SERA MARTINEZ, [facility] – OKLAHOMA CITYOMPUTERIZED TOMOGRAPHY - CT CTA CHEST W/ CONTRAST 08/26 005 Report Impression - Status: SIGNED Entered: 08/26/2024 0159IMPRESSION:1. No CTA evidence of pulmonary embolism or arterial dissection.2. Lateral right seventh rib fracture.Interpreted by: Marylin MARTINEZ personally have reviewed the imaging as well as the resident'sinterpretation and agree with the above report.Electronically signed by: Mireille Martinez MD 08/26/2024 01:57 AMEDT RPWorkstation: [id number] By: SERA MARTINEZ, MDResults: labs reviewed, vital [...] no edemaMusculoskeletal: normal inspection, painless range of motionNeuro/CONSTRUCTION COORDINATOR: alert, oriented x3, CN II to XII [...] alcohol level 298 AST 52 ALT 53 alk-nqpo449. Patient is admitted in stable condition for [...] control-Start Eliquis 5 mg p.o. b.i.d.Type 2 DE secondary to new onset atrial fibrillation-We will start Plavix 75 mg daily during this admission since patient is lessthan 1 year out from CABG not on any antiplatelets currently. Continue Nhtsoww57 mg daily.-Nitroglycerin sublingual p.r.n. and morphine started for painCoronary artery disease with CABG in 11/2023-Patient had procedure done in [place], unsure of echocardiogram results. Patient no longer takes Plavix or aspirin only takes Lipitor 40 mg.-Request records from [facility]-We will start Plavix 75 mg daily during this admission since patient is lessthan 1 year out from CABG not on any antiplatelets currently. Continue Smkrxfs55 mg daily.Lateral right 7th rib fracture-Denies pain [...] 53 alk-phos 175-Abdomen pelvis CT reveals hepatic steatosis-[facility] protocol in place with Librium 10 mg [...] Dr. Mackay, attending physician and Dr. Maldonado OJM5NIPCEEISABELLA MACKAY MD 08/26/24 1522:HistoryMedication/Allergy-Vaccine HxAllergies:Coded Allergies:No Known Allergies (08/26/24)AttestationsTeaching Physician Sfkeptakuuz1gs visit w/o resident:I was the physician production support analyst overnight for resident supervision and coverage ofthe hospitalist service. at 0621 at 1523RPT#:[id number] OF REPORT Nya Longoria MD-25-Aug-2024 [facility] ([facility])EMERGENCY PROVIDER REPORTREPORT#:[id number] REPORT STATUS: SignedDATE:08/25/24 TIME: 2336PATIENT: RAMAN BERNAL UNIT #: [id number]#: [id number] ROOM/BED: [facility]-ADOB: [birth year] AGE: 59 SEX: M PCP PHYS: Walker Lui MDSERVICE AUTHOR: Bill Taylor MDREP SRV REP SRV TM: 2336* ALL edits or amendments must be made on the electronic/computer document *HPI-Palpit/ArrhythFree Text HPI NotesFree Text HPI Ciedg45-yyhv-xdt male with past medical history of coronary artery disease, diabetes,CABG presents to ED via EMS for AFib RVR. Per EMS, patient called for chesttightness and palpitations. Upon arrival he was noted to be tachycardic to ydv543k. He received a bolus of 20 mg [...] B/P Mean 82 08/26 0100 Pulse 83 08/26 0100 Temp 37.2 08/25 2334Review of Vital [...] pH (4.5 - 7.5) 7.0 Ur Specific [place] (1.005 - 1.030) 1.010 Urine Protein (NEGATIVE [...] Mireille Martinez MD 08/26/2024 02:56 AMEDT RPWorkstation: [id number] By: SERA MARTINEZ, MDCOMPUTERIZED TOMOGRAPHY - CT ABDOMEN/PELVIS W/ CONT 08/26 [...] Mireille Martinez MD 08/26/2024 02:04 AMEDT RPWorkstation: [id number] By: SERA MARTINEZ, MDCOMPUTERIZED TOMOGRAPHY - CT CTA CHEST W/ CONTRAST 08/26 0050 Report Impression - Status: SIGNED Entered: 08/26/2024 0159IMPRESSION:1. No CTA evidence of pulmonary embolism or arterial dissection.2. Lateral right seventh rib fracture.Interpreted by: Marylin MARTINEZ personally have reviewed the imaging as well as the resident'sinterpretation and agree with the above report.Electronically signed by: Mireille Martinez MD 08/26/2024 01:57 AMEDT RPWorkstation: [id number] By: RS2 - MIREILLE MARTINEZ MD Lab Imaging StatementLaboratory radiographic studies [...] Documented: Result Date Time Temp 37.2 08/25 233 Pulse 91 08/25 2334 Resp 18 08/25 2334 B/P 114/61 08/25 233 B/P Mean 81 08/25 233 Pulse Ox 97 08/25 2340Last Documented: Result Date Time Resp 17 08/26 0110 Pulse Ox 97 08/26 0100 B/P 119/58 08/26 0100 B/P Mean 82 08/26 0100 Pulse 83 06/10 0100 Temp 37.2 08/25 2334All vital signs available at the time of this entry have been reviewed.Condition StableClinical ImpressionClinical ImpressionPrimary Impression: Atrial fibrillation with RVRSecondary Impressions: NSTEMI (non-ST elevated myocardial infarction), RibfractureDisposition DecisionHospitalize Hosp Physician Name Isabella Mackay MD [facility] Phys[facility] Hospitalist )( Accepted Time 0239 )( Accepted Date 08/26/24 Call Information will [...] spent with the family or caregiver. at 1523RPT#:[id number] OF REPORT Trina Salas MD-3-Feb-2024 [facility] ([facility])Hospitalist Discharge SummaryREPORT#:[id number] REPORT STATUS: SignedREPORT INITIALIZATION DATE:02/19/24 TIME: 1241PATIENT: RAMAN BERNAL UNIT #: [id number]#: [id number] [address] AGE: 58 SEX: M ATTEND: [...] than usual due to running out of [employer] (last filled December 18 per BRANCH OFFICE MANAGER). He is admitted with elevated livertransaminases and [...] all, normal capillary refill, normal range of motionNeuro/CONSTRUCTION COORDINATOR: Confused, less agitatedSkin: abnormal color (jaundiced), dry, intactDischarge InstructionsPCPDischarge to: Home/Self CareAdditional Discharge Routines: NoneDiet: Resume Home Diet/Feeds at 1513RPT #:[id number] OF REPORT Trina Salas MD-2-Feb-2024 [facility] ([facility])Hospitalist Progress NoteREPORT#:[id number] REPORT STATUS: SignedREPORT INITIALIZATION DATE:02/18/24 TIME: 103PATIENT: RAMAN BERNAL UNIT #: [id number]#: [id number] [address] AGE: 58 SEX: M ATTEND: [...] I O ending at 0700: 02/17 0700 02/16 1900 Intake Total Output Total 600 Balance - 600 Output, Urine 600PATIENT WEIGHT:Weight (lb): 172Weight (oz): 9.95Weight (kg): 78.018Physical ExamHead/Eyes: abnl conjunctiva/sclera (icteric)Cardiovascular: normal capillary refill, normal heart sounds, regular raterhythmRespiratory: aerating well, clear to auscultation, symmetric expansionAbdomen: distended, tenderness, softExtremities: moves all, normal capillary refill, normal range of motionNeuro/CONSTRUCTION COORDINATOR: Confused, less agitatedSkin: abnormal color (jaundiced), dry, [...] Specimen Hemolysis (0 NEG Grade) NEGATIVELaboratory Tests 12/02 0520 Hematology WBC (4.80 - 10.80 x10 [...] (Auto) (24 - 44 %) 20.3 L Hartley % (Auto) (0.0 - 4.0 %) 11.8 [...] of hismorphine (last filled December 18 per BRANCH OFFICE MANAGER). He is admitted with elevated livertransaminases and hyperbilirubinemia concerning for possible acute alcoholichepatitis. He began to complain of chest pain. Troponins were trended andshowed a mild rise and fall, peak troponin level of 88. Cardiology wasconsulted. at 1640RPT #:[id number] OF REPORT Trina Salas MD-1-Feb-2024 [facility] ([facility])Hospitalist Progress NoteREPORT#:[id number] REPORT STATUS: SignedREPORT INITIALIZATION DATE:02/17/24 TIME: 1302PATIENT: RAMAN BERNAL UNIT #: [id number]#: [id number] [id number] AGE: 58 SEX: M ATTEND: Josue [...] all, normal capillary refill, normal range of motionNeuro/CONSTRUCTION COORDINATOR: Confused, less agitatedSkin: abnormal color (jaundiced), dry, [...] of hismorphine (last filled December 18 per BRANCH OFFICE MANAGER). He is admitted with elevated livertransaminases and hyperbilirubinemia concerning for possible acute alcoholichepatitis. He began to complain of chest pain. Troponins were trended andshowed a mild rise and fall, peak troponin level of 88. Cardiology wasconsulted. at 1342RPT #:[id number] OF REPORT Trina Salas MD- 4 [facility] ([facility])Hospitalist Progress NoteREPORT#:[id number] REPORT STATUS: SignedREPORT INITIALIZATION DATE:02/16/24 TIME: 133PATIENT: RAMAN BERNAL UNIT #: [id number]#: [id number] [id number] AGE: 58 SEX: M ATTEND: Josue [...] 59 18 145/72 0.0 96 Room air 02/149 98.1 68 18 138/67 90.4 99 Room [...] all, normal capillary refill, normal range of motionNeuro/CONSTRUCTION COORDINATOR: Confused, less agitatedSkin: abnormal color (jaundiced), dry, [...] of hismorphine (last filled December 18 per BRANCH OFFICE MANAGER). He is admitted with elevated livertransaminases and hyperbilirubinemia concerning for possible acute alcoholichepatitis. He began to complain of chest pain. Troponins were trended andshowed a mild rise and fall, peak troponin level of 88. Cardiology wasconsulted. at 1559RPT #:[id number] OF REPORT Bar Crooks MD-15-Feb-2024 [facility] ([facility])Cardiology Progress NoteREPORT#:[id number] REPORT STATUS: SignedREPORT INITIALIZATION DATE:02/15/24 TIME: 2238PATIENT: RAMAN BERNAL UNIT #: [id number]#: [id number] [id number] AGE: 58 SEX: M ATTEND: Josue [...] 02/14 2000 65 14 109/59 80 98 02/141 36.7 02/140 98 Room air 02/14 1900 66 11 [...] (Sodium Chloride 0.9% 1,000 mL) 1,000 ML .L65Y74P IVDextrose (Glucose Tablet) 16 GM ASDIR PRN [...] extremity: LE assessment: normal capillary refill, no edemaNeuro/CONSTRUCTION COORDINATOR: disoriented, alertResultsFindings/Data:Laboratory Tests 02/14 02/14 02/14 02/14 [...] (Auto) (24 - 44 %) 8.3 L Hartley % (Auto) (0.0 - 4.0 %) 5.0 [...] pH (5.5 - 7.0) 6.5 Ur Specific [place] (1.001 - 1.035) 1.019 Urine Protein (NEGATIVE [...] suggestsminimal if any volume overload. Treat each condition.Ixxeb-ho-pfgjznd diastolic heart failure.--ON THE CURRENT ECHO THE PATIENT EJECTION FRACTION SHOWS RECOVERY:NORMALIZED.THE PATIENT'S PRIOR EF WAS MODERATELY DEPRESSED. Cautious diuretic. Blood pressure control.Multivessel coronary artery disease.--Continue guideline-directed medical therapy. Current presentation is notsuggestive of acute coronary syndrome. Has had recent coronary artery bypasssurgery.Old myocardial infarction.--The patient had some myocardial infarction/est-BH-mmfktlkpd myocardialinfarction - in October Underwent bypass.--Continue guideline-directed [...] the setting of acutehepatic injury. at 2242RPT #:[id number] OF REPORT Trina Salas MD- 4 [facility] ([facility])Hospitalist Progress NoteREPORT#:[id number] REPORT STATUS: SignedREPORT INITIALIZATION DATE:02/15/24 TIME: 1002PATIENT: RAMAN BERNAL UNIT #: [id number]#: [id number] [address] [birth year] AGE: 58 SEX: M ATTEND: [...] hour I O ending at 0700: 02/14 0702/13 1900 Intake Total 900.00 Output Total Balance 900.00 Intake, IV 900.00 Number 1 Bowel Movements Number 1 2 Incontinent Voids Number Voids 1PATIENT WEIGHT:Weight (lb): 172Weight (oz): 9.95Weight (kg): 78.300Physical ExamHead/Eyes: abnl conjunctiva/sclera (icteric)Cardiovascular: normal capillary refill, normal heart sounds, regular raterhythmRespiratory: aerating well, clear to auscultation, symmetric expansionAbdomen: distended, tenderness, softExtremities: moves all, normal capillary refill, normal range of motionNeuro/CONSTRUCTION COORDINATOR: Confused, less agitatedSkin: abnormal color (jaundiced), dry, intactResultsFindings/Data:Laboratory Tests 02/14 02/14 02/14 02/14 02/13 1607 1110 0734 6477 2005 Chemistry Sodium (136 - 145 mmol/L) [...] (Auto) (24 - 44 %) 8.3 L Hartley % (Auto) (0.0 - 4.0 %) 5.0 [...] 0357 Miscellaneous Miscellaneous Test CalledLaboratory Tests 02/14 0835 Urines Ur Spec Description Clean Catch Urine Color (YELLOW) Dark-Yellow Urine Appearance (CLEAR) CLEAR Urine pH (5.5 - 7.0) 6.5 Ur Specific [place] (1.001 - 1.035) 1.019 Urine Protein (NEGATIVE [...] than usual due to running out of hisFormative Labs (last filled December 18 per [facility]ANCH OFFICE MANAGER). He is admitted with elevated livertransaminases and hyperbilirubinemia concerning for possible acute alcoholichepatitis. He began to complain of chest pain. Troponins were trended andshowed a mild rise and fall, peak troponin level of 88. Cardiology wasconsulted. at 1748RPT #:[id number] OF REPORT Bar Crooks MD-14-Feb-2024 [facility] ([facility])Cardiology Progress NoteREPORT#:[id number] REPORT STATUS: SignedREPORT INITIALIZATION DATE:02/14/24 TIME: 1630PATIENT: RAMAN BERNAL UNIT #: [id number]#: [id number] [address] [birth year] AGE: 58 SEX: M ATTEND: Josue Mena [facility] AUTHOR: Valeriy Dinero MDREPT SERVICE DT/TIME: 02/14/24 [...] 22 144/76 100 94 02/12 2021 36.9 02/12 2000 96 16 142/76 103 94 [...] (Sodium Chloride 0.9% 1,000 mL) 1,000 ML .[id number] IVDextrose (Glucose Tablet) 16 GM ASDIR PRN [...] extremity: LE assessment: normal capillary refill, no edemaNeuro/CONSTRUCTION COORDINATOR: disoriented, alertResultsFindings/Data:Laboratory Tests 02/13 02/13 02/13 02/13 [...] Specimen Hemolysis (0 NEG Grade) NEGATIVE 02/12 193 Chemistry POC Glucose (65 - 99 MG/DL) 242 HLaboratory Tests 11/28 0430 Hematology WBC (4.80 - 10.80 x10 [...] (Auto) (24 - 44 %) 6.3 L Hartley % (Auto) (0.0 - 4.0 %) 3.0 [...] suggestsminimal if any volume overload. Treat each condition.Jyxjv-wo-avhzybb systolic heart failure.--The patient's prior EF was [...] INCREASEDOld myocardial infarction.--The patient had some myocardial infarction/hig-HO-kuwhgjnql myocardialinfarction - in October Underwent bypass.--Continue guideline-directed [...] the setting of acutehepatic injury. at 1632RPT #:[id number] OF REPORT Trina Salas MD- 4 [facility] ([facility])Hospitalist Progress NoteREPORT#:[id number] REPORT STATUS: SignedREPORT INITIALIZATION DATE:02/14/24 TIME: 823PATIENT: RAMAN BERNAL UNIT #: [id number]#: [id number] ROOM/BED: [id number]: 63 AGE: 58 SEX: M ATTEND: Josue Mena MDADM AUTHOR: Josue Mena MDREPT SERVICE DT/TIME: 02/14/24823* ALL edits or amendments must be made [...] all, normal capillary refill, normal range of motionNeuro/CONSTRUCTION COORDINATOR: Confused, less agitatedSkin: abnormal color (jaundiced), dry, [...] running out of hismorphine (last filled December 2 per [facility] OFFICE MANAGER). He is admitted with elevated livertransaminases and hyperbilirubinemia concerning for possible acute alcoholichepatitis. He began to complain of chest pain. Troponins were trended andshowed a mild rise and fall, peak troponin level of 88. Cardiology wasconsulted. at 1151RPT #:[id number] OF REPORT Bar Crooks MD-13-Feb-2024 [facility] ([facility])Cardiology Progress NoteREPORT#:[id number] REPORT STATUS: SignedREPORT INITIALIZATION DATE:02/13/24 TIME: 1310PATIENT: RAMAN BERNAL UNIT #: [id number]#: [id number] [address] [birth year] AGE: 58 SEX: M ATTEND: Josue Mena [facility] AUTHOR: Valeriy Dinero MDREPT SERVICE DT/TIME: 02/13/24 [...] 82 23 171/83 119 98 02/11 2113 36.9 02/11 2100 79 18 153/76 [...] (Sodium Chloride 0.9% 1,000 mL) 1,000 ML .[id number] IVDextrose (Glucose Tablet) 16 GM ASDIR PRN [...] extremity: LE assessment: normal capillary refill, no edemaNeuro/CONSTRUCTION COORDINATOR: disoriented, alertResultsFindings/Data:Laboratory Tests 02/12 02/12 02/12 02/12 02/11 1202 0800 0609 0543 1999 Chemistry Sodium (136 - 145 mmol/L) 133 [...] (Auto) (24 - 44 %) 10.0 L Hartley % (Auto) (0.0 - 4.0 %) 7.3 [...] suggestsminimal if any volume overload. Treat each condition.Mnhjz-qm-fxbpayp systolic heart failure.--The patient's prior EF was [...] INCREASEDOld myocardial infarction.--The patient had some myocardial infarction/daq-SI-gpmoutjac myocardialinfarction - in October Underwent bypass.--Continue guideline-directed [...] the setting of acutehepatic injury. at 1318RPT #:[id number] OF REPORT Trina Salas MD- 4 [facility] ([facility])Hospitalist Progress NoteREPORT#:[id number] REPORT STATUS: SignedREPORT INITIALIZATION DATE:02/13/24 TIME: 937PATIENT: RAMAN BERNAL UNIT #: [id number]#: [id number] [address] [birth year] AGE: 58 SEX: M ATTEND: Josue Mena [facility] AUTHOR: Josue Mena MDREPT SERVICE DT/TIME: 02/13/24 0938* ALL edits or amendments must be made [...] all, normal capillary refill, normal range of motionNeuro/CONSTRUCTION COORDINATOR: alert, oriented X 3, CNII-XII intactSkin: abnormal color (jaundiced), dry, intactPsychiatry: normal affect, normal judgment/insight, normal moodResultsFindings/Data:Laboratory Tests 02/12 02/12 02/12 02/12 02/11 1202 0800 0609 0543 1999 Chemistry Sodium (136 - 145 mmol/L) 133 [...] (Auto) (24 - 44 %) 10.0 L Hartley % (Auto) (0.0 - 4.0 %) 7.3 [...] than usual due to running out of hisFormative Labs (last filled December 18 per BRANCH OFFICE MANAGER). He is admitted with elevated livertransaminases and hyperbilirubinemia concerning for possible acute alcoholichepatitis. He began to complain of chest pain. Troponins were trended andshowed a mild rise and fall, peak troponin level of 88. Cardiology wasconsulted. at 1408Addendum 1: 02/14/24 1148 by Josue Mena Rikki is agitated and confused today.Alcohol withdrawal protocol initiated. at 1150RPT #:[id number] OF REPORT Bar Crooks MD-12-Feb-2024 [id number] [place], [place]IENT NAME: RAMAN BERNAL ADMIT DATE: 02/12/24ACCOUNT NO: [id number] ROOM NO: D.[id number] RECORD NO: [id number] AGE: 58REPORT TYPE: CONSULTATION SEX: MADMITTING PHYSICIAN:Josue Mena MDATTENDING PHYSICIAN:Josue Mena MDCONSULTATION DATE: 4REASON FOR CONSULTATION: Shortness of breath, palpitations.HISTORY OF PRESENT ILLNESS: Mr. Bernal is a 58-year-old male patient [facility], coronary artery bypass surgery secondaryto a 3-vessel [...] Exam suggestsminimal if any overload. Treat each condition.Bzemq-vu-hnloeqg systolic heart failure.--The patient's prior EF was [...] bypasssurgery.Old myocardial infarction.--The patient had some myocardial infarction/ehw-WO-ixfqyrehp myocardialinfarction in October. Underwent bypass.--Continue guideline-directed medical [...] Dictated: 02/12/2024 20:22:31Date Transcribed: 02/13/2024 02:55:55DEA/LEONOR/Ernst #: [id number] ID: [id number] and Edited by Valeriy Dinero MD On 02/13/24 12:20:29 PM at 1223PATIENT NAME: RAMAN BERNAL Vincent Lakeisha Jimenez -2023 [facility] ([facility])Hospitalist Progress NoteREPORT#:[id number] REPORT STATUS: SignedREPORT INITIALIZATION DATE:02/12/24 TIME: 1805PATIENT: RAMAN BERNAL UNIT #: [id number]#: [id number] [address]: [birth year] AGE: 58 SEX: M ATTEND: Lakeisha Kaur DOADM AUTHOR: Lakeisha Kaur DOREPT SERVICE DT/TIME: 02/12/24 1805* ALL edits or amendments must be made [...] (Sodium Chloride 0.9% 1,000 mL) 1,000 ML .[id number] IVDextrose (Glucose Tablet) 16 GM ASDIR PRN [...] all, normal capillary refill, normal range of motionNeuro/CONSTRUCTION COORDINATOR: alert, oriented X 3, CNII-XII intactSkin: abnormal [...] 1+ 02/11 02/11 02/10 02/10 02/10 0544 0301 5283 6005 1926Chemistry Sodium (133 - 145 MMOL/L) 132 [...] (Auto) (24 - 44 %) 34.8 33.5 Hartley % (Auto) (0.0 - 4.0 %) 10.0 [...] Cells 1+Laboratory Tests 02/11 02/11 02/10 02/10 2430 7250 2963 1926 Miscellaneous Miscellaneous Test Called Called Called CalledLaboratory Tests 02/10 1927 Toxicology Ethyl Alcohol (0 - 10 MG/DL) 210 HRadiology data:Recent Impressions:RADIOLOGY - XR CHEST 1 V 02/10 1930 Report Impression - Status: SIGNED Entered: 02/11/20242036IMPRESSION:No acute cardiopulmonary findings.Electronically signed by: Corey Mcmahan DO 02/11/2024 08:35PM [facility] RP Workstation: [id number] By: LLOYD BATRES - DUP AB/PEL/SC COMP 02/11 103 Report Impression - Status: SIGNED Entered: 02/12/2024 1145IMPRESSION:No evidence of acute pathology of the right upper quadrant.Mild hepatomegaly with moderate hepatic steatosis.Patent portal and hepatic veins with normal direction of flow.Electronically signed by: Mauricio Ascencio MD 02/12/2024 11:43 [facility] RP Workstation: [id number] By: LLOYD Luna - ABDOMEN [facility] 02/11 1033 Report Impression - Status: SIGNED Entered: 02/12/2024 1145IMPRESSION:No evidence of acute pathology of the right upper quadrant.Mild hepatomegaly with moderate hepatic steatosis.Patent portal and hepatic veins with normal direction of flow.Electronically signed by: Mauricio Ascencio MD 02/12/2024 11:43 [facility] RP Workstation: [id number] By: DR.SHORO Mary Ascencio, MDDiagnosis, Assessment PlanProblem [...] of hismorphine (last filled December 18 per BRANCH OFFICE MANAGER). He is admitted with elevated livertransaminases and hyperbilirubinemia concerning for possible acute alcoholichepatitis. He began to complain of chest pain. Troponins were trended andshowed a mild rise and fall, peak troponin level of 88. Cardiology wasconsulted. at 1811RPT #:[id number] OF REPORT Aman Heath MD-12-Feb-2024 [facility] ([facility])Hospitalist History PhysicalREPORT#:[id number] REPORT STATUS: SignedREPORT INITIALIZATION DATE:02/12/24 TIME: 045PATIENT: RAMAN BERNAL UNIT #: [id number]#: [id number] [address] [birth year] AGE: 58 SEX: M ATTEND: [...] the hospital formanagement of his acute alcoholic hepatitis for monitoring of hepatic functionand supportive care with starting on treatment with prednisolone for mortalityrisk reduction.HistoryPast Medical Surgical HxAdditional medical history:Osteomyelitis May 12 continues on antibiotics.DE and CABG November 09 Dr wall of [...] Room air 02/10 1850 Temp 98.4 02/10 [id number] hour I O ending at 0700: 02/11 0700 02/10 1900 Intake Total Output Total Balance Patient 78.3 kg Weight Weight Standing scale Measurement MethodPatient Weight and BMIWeight (kg): 78.300 BMI: 28.7General appearance: alert, awake, orientedCardiovascular: normal capillary refill, normal heart sounds, regular raterhythmRespiratory: aerating well, clear to auscultation, symmetric expansionAbdomen: tendernessExtremities: moves all, normal capillary refill, normal range of motionNeuro/CONSTRUCTION COORDINATOR: alert, oriented X 3, CNII-XII intactSkin: dry, [...] on statinCode status: full code at 0818RPT #:[id number] OF REPORT Alverto Arzola DO- 4 [facility] ([facility])OR A [facility] PROVID[facility] REPORTREPORT#:[id number] REPORT STATUS: SignedDATE:02/11/24 TIME: 2016PATIENT: RAMAN BERNAL UNIT #: [id number]#: [id number] ROOM/BED:: 64 AGE: 58 SEX: M PCP PHYS: Walker Lui AUTHOR: Keyonna BriceñoEP SRV REP SRV TM: 2016* ALL edits [...] hiscardiologist or his neurosurgeonGeneralInitial Greet Date/Time 02/11/24 1854PresD[facility]ef Complaint __ (multiple complaints)Review of SystemsFree Text [...] Ox 100 02/10 1850 B/P 120/64 02/10 185 B/P Mean 82 02/10 1850 O2 Delivery Room air 02/10 1850 Temp 36.9 02/10 1850 Pulse 98 02/10 1850 Resp 16 02/10 1850Last Documented: Result Date Time Pulse Ox 100 02/10 1850 B/P 120/64 02/10 185 B/P Mean 82 02/10 1850 O2 Delivery [...] Results InterpretationResultsLaboratory Tests02/11/241926:[Embedded Image Not Available]Laboratory Tests: 02/10 02/10 02/10 7462 4970 1926 Chemistry Sodium (133 - 145 MMOL/L) [...] % (Auto) (24 - 44 %) 33.5 Hartley % (Auto) (0.0 - 4.0 %) 11.2 [...] signed by: Corey Mcmahan DO 02/11/2024 08:35PM [facility] Workstation: [id number] By: - COREY MCMAHAN, NAHOMY #1 InterpretationText/Dict NoteSinus rhythm with PACs with aberrant conduction, rate 86 DE: No acute STelevation or depressionDate 02/11/24Time e-Evaluation MDMED CourseMedication(s) OrderedMedication(s) Ordered:Cardiovascular Drugs Sig/Darshana Start time Last Medication Dose Route Stop Time Status Admin Hydralazine HCl 10 MG X1ED STA 02/10 2252 DC IV 02/10 2253Central Nervous System Agents Sig/Darshana Start time Last Medication Dose Route Stop Time Status Admin Morphine Sulfate 4 MG X1ED STA 02/10 2304 DC 02/10 IV 02/10 230 2315 Morphine Sulfate 4 MG X1ED STA 02/11 1916 DC 02/10 IV 02/10 1917 2018Electrolytic, Caloric, [...] Newton MD Hosp Physician Hospitalist Request Time 0025 Request Date 02/12/24 )( Accepts Hospitalization Yes )( Reason for Hospitalizationsee above )( Accepted Time 24 )( Accepted Date 02/12/24Discharge/Care PlanAdvance Care Planning Code Status Full at 0025RPT #:[id number] OF REPORT Problems SARS-CoV-2 not detected Onset:13-Sep-2024 Debi Baig MD Alcohol intoxication Onset:13-Sep-2024 Debi Baig MD Hyperglycemia Onset:04-Sep-2024 [place]-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 Chest pain Onset:30-Aug-2024 ARNAN99 Fracture of rib Onset:26-Aug-2024 Nya Longoria MD Myocardial infarction Onset:26-Aug-2024 Nya Longoria MD Atrial fibrillation with rap id ventricular response Onset:26-Aug-2024 Nya Longoria MD Type 2 diabetes mellitus Onset:07-Jul-2024 Chu Francisco MD Asthenia Onset:18-Jun-2024 Allen Venegas APRNNP Structure of left shoulder r egion Onset:19-Apr-2024 Bassam Lopez DO Hyperlipidemia Onset:12-Feb-2024 Aman Heath MD Hypertensive disorder Onset:12-Feb-2024 Aman Heath MD Chronic back pain Onset:12-Feb-2024 Alverto Arzola DO Acute alcoholic liver diseas e Onset:12-Feb-2024 Alverto Arzola DO Dehydration Onset:10-Feb-2024 Bryn Verdugo MD Chronic pain Onset:10-Feb-2024 Bryn Verdugo MD Chest pain Onset:21-Jan-2024 Criss Malloy DO Hypertensive urgency Onset:21-Jan-2024 Lacmimi Mellissa DO Alcohol intoxication Onset:21-Jan-2024 Lacmimi Mellissa DO Gastritis Onset:03-Aug-2023 Margaret Vasquez MD Alcohol abuse Onset:03-Aug-2023 Margaret Vasquez MD Viral gastroenteritis Onset:29-Jul-2023 Mary 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 Viral disease Onset:31-Mar-2023 Alverto Arzola DO Lumbar radiculopathy Onset:20-Nov-2022 ENRJA Chronic low back pain Onset:20-Nov-2022 ENRJA Chronic back pain Onset:05-Aug-2016 Rena SANTOS Alcohol intoxication Onset:02-Mar-2016 Inflammatory disorder Onset:14-Feb-2016 Dental abscess Onset:14-Feb-2016 Patient encounter status Onset:16-Nov-2014 Bri RIVAS Patient noncompliance - gene ral Onset:16-Nov-2014 Bri RIVAS Hyperglycemia Onset:16-Nov-2014 Bri RIVAS Depressive disorder Onset:16-Nov-2014 Bri RIVAS Hyperglycemia Onset:14-Aug-2014 Seizure Onset:14-Aug-2014 Suicidal thoughts Onset:08-Dec-2013 Substance abuse Onset:23-Nov-2013 Asthenia Onset:23-Nov-2013 Cocaine abuse Onset:10-Nov-2013 Hypokalemia Onset:10-Nov-2013 Depressive [...] Medications 100 ML magnesium sulfate 40 MG/ML Injection;[id number] Terese Parsons MD Start:83-Yep-5519Xfw:12-Sep-2024 Comments:[id number] traZODone hydrochloride 50 MG Oral Tablet;50 MILLIGRAM BEDTIME Quantity:1 MANS Start:11-Sep-2024 Status:Discontinued Comments:[id number] atorvastatin 40 MG Oral Tablet [Lipitor];40 MILLIGRAM BEDTIME Quantity:1 Start:11-Sep-2024 Status:Discontinued Comments:[id number] potassium phosphate 155 MG / sodium phosphate, dibasic 852 MG / sodium phosphate, monobasic 130 MG Oral Tablet [K-Phos Neutral];500 MILLIGRAM ONCE Quantity:2 Start:49-Oem-5400Fbt:2024 Comments:[id number] Administration Instructions:FOR NEUTRA-PHOS oxyCODONE HCL 10 MG IR TABLET;10 MILLIGRAM Q6H PRN Quantity:1 Start:11-Sep-2024 Status:Discontinued Comments:[id number] acetaminophen 325 MG / oxyCODONE hydrochloride 5 MG Oral Tablet;1 TABLET Q6H PRN Quantity:1 Start:11-Sep-2024 Status:Discontinued Comments:[id number] acetaminophen 325 MG Oral Tablet;650 MILLIGRAM Q6H PRN Quantity:2 MANS Start:11-Sep-2024 Status:Discontinued Comments:[id number] Administration Instructions:MAXIMUM DAILY DOSE OF ACETAMINOPHEN = 4000 MG Morphine Sulfate 2 MG/ML Injectable Solution;2 MILLIGRAM Q6H PRN Quantity:1 Start:11-Sep-2024 Status:Discontinued Comments:[id number] Administration Instructions:IF PATIENT IS TAKING ORAL, PLEASE CALL PHARMACY. HumaLOG;[id number] Administration Instructions:REGULAR SLIDING SCALE XYDTDVXE68-226 MG/DL, 0 JZHOM817-376 MG/DL, 1 SGCKX357-546 MG/DL, 2 CJORA720-968 MG/DL, 3 ERURS943-043 MG/DL, 4 NYGQM148-019 MG/DL, 5 UNITS>= 400, 5 UNITS ANDOBTAIN STAT BS AND CALLRESULTS TO PHYSICIAN Quantity:0 MANS Start:11-Sep-2024 Status:Discontinued Comments:[id number] Administration Instructions:REGULAR SLIDING SCALE SACPDCBG30-403 MG/DL, 0 WYSOK341-544 MG/DL, 1 AOKHD717-343 MG/DL, 2 KTZJS926-052 MG/DL, 3 MHBZK239-884 MG/DL, 4 LHFEW362-312 MG/DL, 5 UNITS>= 400, 5 UNITS ANDOBTAIN STAT BS AND CALLRESULTS TO PHYSICIAN sodium chloride 9 MG/ML Injectable Solution Start:86-Obk-5788Uyq:2024 1 ML Sodium Chloride 9 MG/ML Prefilled Syringe;10 MILLILITER Q12HR Quantity:1 Howie Schroeder MD Start:11-Sep-2024 Status:Discontinued Comments:[id number] Administration Instructions:flush every shift and before after each IVmedication is administered clopidogrel 75 MG Oral Tablet [Plavix];75 MILLIGRAM DAILY Quantity:1 Start:11-Sep-2024 Status:Discontinued Comments:[id number] amLODIPine 5 MG Oral Tablet [Norvasc];10 MILLIGRAM DAILY Quantity:2 Start:11-Sep-2024 Status:Discontinued Comments:[id number] LOSARTAN POTASSIUM 50 MG TABLET_LOSA50TA;50 MILLIGRAM DAILY Quantity:1 Start:11-Sep-2024 Status:Discontinued Comments:[id number] pantoprazole 40 MG Delayed Release Oral Tablet [Protonix];40 MILLIGRAM DAILY Quantity:1 Start:11-Sep-2024 Status:Discontinued Comments:[id number] Administration Instructions:DO NOT CRUSH, CUT OR CHEW metoprolol tartrate 25 MG Oral Tablet;25 MILLIGRAM BID Quantity:1 Start:11-Sep-2024 Status:Discontinued Comments:[id number] apixaban 5 MG Oral Tablet [Eliquis];5 MILLIGRAM BID Quantity:1 Start:11-Sep-2024 Status:Discontinued Comments:[id number] levETIRAcetam 500 MG Oral Tablet;500 MILLIGRAM BID Quantity:1 Start:11-Sep-2024 Status:Discontinued Comments:[id number] 24 HR isosorbide mononitrate 30 MG Extended Release Oral Tablet [Imdur];30 MILLIGRAM BID Quantity:1 Start:11-Sep-2024 Status:Discontinued Comments:[id number] Administration Instructions:DO NOT CRUSH, CUT, OR CHEW thiamine 100 MG Oral Tablet;100 MILLIGRAM DAILY Quantity:1 Start:11-Sep-2024 Status:Discontinued Comments:[id number] folic acid 1 MG Oral Tablet;1 MILLIGRAM DAILY Quantity:1 MANSA98 Start:11-Sep-2024 Status:Discontinued Comments:[id number] THERAPEUTIC VIT/MIN_THEROT1034;1 TABLET DAILY Quantity:1 MANSA Start:11-Sep-2024 Status:Discontinued Comments:[id number] 50 ML glucose 500 MG/ML Prefilled Syringe;[id number] Administration Instructions:If patient unable to swallow and has IV access* blood sugar 60-69 mg/dl- hold insulinand administer 15 mL (7.5 grams);* Blood sugar 50-59 mg/dl- hold insulinand administer 20 mL (10 grams);* Blood sugar 30-49 mg/dl- hold insulin and Quantity:0 MANSA98 Start:11-Sep-2024 Status:Discontinued Comments:[id number] Administration Instructions:If patient unable to swallow and has IV access* blood sugar 60-69 mg/dl- hold insulinand administer 15 mL (7.5 grams);* Blood sugar 50-59 mg/dl- hold insulinand administer 20 mL (10 grams);* Blood sugar 30-49 mg/dl- hold insulin and glucose 4000 MG Chewable Tablet;16 GRAM ASDIR Quantity:4 MANSA98 Start:11-Sep-2024 Status:Discontinued Comments:[id number] Administration Instructions:* If patient asymptomatic, give juice and crackers and callthe physician* If patient able to swallow, give Glucose chewable ijfywyp86 gram orally as needed for blood glucose <60 orsymptomatic hypoglycemiaCHEW TABLETS THOROUGHLY BEFORE SWALLOWING LORazepam 2 MG/ML Injectable Solution;4 MILLIGRAM Q1H PRN Quantity:2 MANSA98 Start:11-Sep-2024 Status:Discontinued Comments:[id number] Administration Instructions:WHEN GIVIN IV INJECTION - MIX 1:1 WITH NS OR STERILE WATER LORazepam 2 MG/ML Injectable Solution;2 MILLIGRAM Q1H PRN Quantity:1 MANSA98 Start:11-Sep-2024 Status:Discontinued Comments:[id number] Administration Instructions:WHEN GIVIN IV INJECTION - MIX 1:1 WITH NS OR STERILE WATER ondansetron 2 MG/ML Injectable Solution [Zofran];4 MILLIGRAM Q8H PRN Quantity:1 MANSA98 Start:11-Sep-2024 Status:Discontinued Comments:[id number] Administration Instructions:4 MG dose may be given IV push over 2 MINUTESDoses > 4 mg: Use 50 mL D5W or 0.9% NaCl infuse over 15 minutes LORazepam 2 MG/ML Injectable Solution;1 MILLIGRAM X1ED Quantity:1 Start:41-Wqu-5928Ttp:2024 Comments:[id number] Administration Instructions:WHEN GIVIN IV INJECTION - MIX 1:1 WITH NS OR STERILE WATER morphine SULFATE 2 MG/ML INJ (FK);2 MILLIGRAM X1ED Quantity:1 Start:09-Dhf-8881Tri:2024 Comments:[id number] 1 ML Sodium Chloride 9 MG/ML Prefilled Syringe;10 MILLILITER ASDIR Quantity:1 Howie Schroeder MD Start:11-Sep-2024 Status:Discontinued Comments:[id number] Administration Instructions:flush every shift and before after each IVmedication is administered LORazepam 2 MG/ML Injectable Solution;1 MILLIGRAM X1ED Quantity:1 Start:04-Ejl-1961Glu:2024 Comments:[id number] Administration Instructions:WHEN GIVIN IV INJECTION - MIX 1:1 WITH NS OR STERILE WATER potassium chloride 20 MEQ Extended Release Oral Tablet [K-Dur];40 MILLIEQUIVALENT X1ED Quantity:2 Start:37-Kzo-6765Lyt:2024 Comments:[id number] Administration Instructions:Hold for KCl >5.1. DO NOT CUT CRUSH OR CHEW* EACH TABLET MAY BE DISOLVED IN 30 ML OF LIQUID T[place]KE SLURRY OF 20 MG/30 ML SOLN* aspirin 81 MG Chewable Tablet;324 MILLIGRAM X1ED Quantity:4 ON Start:36-Ixi-8799Veu:2024 Comments:[id number] acetaminophen 325 MG Oral Tablet;650 MILLIGRAM Q6H PRN Quantity:2 Chava Parsons MD Start:10-Sep-2024 Status:Discontinued Comments:[id number] Administration Instructions:MAXIMUM DAILY DOSE OF ACETAMINOPHEN = 4000 MG clopidogrel 75 MG Oral Tablet [Plavix];75 MILLIGRAM DAILY Quantity:1 JANENE Travis MD Start:10-Sep-2024 Status:Discontinued Comments:[id number] LOSARTAN POTASSIUM 50 MG TABLET_LOSA50TA;50 MILLIGRAM DAILY Quantity:1 JANENE CRAINOSWALDO Travis MD Start:10-Sep-2024 Status:Discontinued Comments:[id number] amLODIPine 5 MG Oral Tablet [Norvasc];10 MILLIGRAM DAILY Quantity:2 JANENE CRAINOSWALDO Travis MD Start:10-Sep-2024 Status:Discontinued Comments:[id number] pantoprazole 40 MG Delayed Release Oral Tablet [Protonix];40 MILLIGRAM DAILY@0600 Quantity:1 JANENE CRAINOSWALDO Travis MD Start:10-Sep-2024 Status:Discontinued Comments:[id number] Administration Instructions:DO NOT CRUSH, CUT OR CHEW pantoprazole 40 MG Delayed Release Oral Tablet [Protonix];40 MILLIGRAM PO DAILY Start:10-Sep-2024 Comments:40 MG PO DAILY *Med List Information;1 EACH MISC .CANCEL AT DISCHARGE Start:10-Sep-2024 Comments:1 EA MISC .CANCEL AT DISCHARGE 1 ML Sodium Chloride 9 MG/ML Prefilled Syringe;10 MILLILITER Q12HR Quantity:1 Debi Baig MD Start:09-Sep-2024 Status:Discontinued Comments:[id number] Administration Instructions:flush every shift and before after each IVmedication is administered metoprolol tartrate 25 MG Oral Tablet;25 MILLIGRAM BID Quantity:1 SEBASTIANMELO Travis MD Start:09-Sep-2024 Status:Discontinued Comments:[id number] 24 HR isosorbide mononitrate 30 MG Extended Release Oral Tablet [Imdur];30 MILLIGRAM BID Quantity:1 JANENE Travis MD Start:09-Sep-2024 Status:Discontinued Comments:[id number] Administration Instructions:DO NOT CRUSH, CUT, OR CHEW levETIRAcetam 500 MG Oral Tablet;500 MILLIGRAM BID Quantity:1 JANENE Travis MD Start:09-Sep-2024 Status:Discontinued Comments:[id number] traZODone hydrochloride 50 MG Oral Tablet;50 MILLIGRAM BEDTIME Quantity:1 SEBASTIANMELO Travis MD Start:09-Sep-2024 Status:Discontinued Comments:[id number] atorvastatin 40 MG Oral Tablet [Lipitor];40 MILLIGRAM BEDTIME Quantity:1 JANENE Travis MD Start:09-Sep-2024 Status:Discontinued Comments:[id number] insulin, regular, human 100 UNT/ML Injectable Solution [HumuLIN R];[id number] Administration Instructions:REGULAR SLIDING SCALE IHCZAGFQ18-665 MG/DL, 0 EDPAR549-494 MG/DL, 1 NHYEW206-287 MG/DL, 2 SGREQ469-676 MG/DL, 3 KHKLM499-355 MG/DL, 4 TCBGU476-808 MG/DL, 5 UNITS>= 400, 5 UNITS ANDOBTAIN STAT BS AND CALLRESULTS TO PHYSICIAN Quantity:0 JANENE Travis MD Start:09-Sep-2024 Status:Discontinued Comments:[id number] Administration Instructions:REGULAR SLIDING SCALE PKZICQTK88-788 MG/DL, 0 PGMRH947-298 MG/DL, 1 JIVRV979-800 MG/DL, 2 BASZC878-523 MG/DL, 3 DSYVF812-212 MG/DL, 4 WSZZG506-606 MG/DL, 5 UNITS>= 400, 5 UNITS ANDOBTAIN STAT BS AND CALLRESULTS TO PHYSICIAN glucose 4000 MG Chewable Tablet;16 GRAM ASDIR Quantity:4 JANENE Travis MD Start:09-Sep-2024 Status:Discontinued Comments:[id number] Administration Instructions:* If patient asymptomatic, give juice and crackers and callthe physician* If patient able to swallow, give Glucose chewable gram orally as needed for blood glucose <60 orsymptomatic hypoglycemiaCHEW TABLETS THOROUGHLY BEFORE SWALLOWING 50 ML glucose 500 MG/ML Prefilled Syringe;[id number] Administration Instructions:If patient unable to swallow and has IV access* blood sugar 60-69 mg/dl- hold insulinand administer 15 mL (7.5 grams);* Blood sugar 50-59 mg/dl- hold insulinand administer 20 mL (10 grams);* Blood sugar 30-49 mg/dl- hold insulin and Quantity:0 JANENE Travis MD Start:09-Sep-2024 Status:Discontinued Comments:[id number] Administration Instructions:If patient unable to swallow and has IV access* blood sugar 60-69 mg/dl- hold insulinand administer 15 mL (7.5 grams);* Blood sugar 50-59 mg/dl- hold insulinand administer 20 mL (10 grams);* Blood sugar 30-49 mg/dl- hold insulin and folic acid 1 MG Oral Tablet;1 MILLIGRAM DAILY Quantity:1 JANENE Travis MD Start:09-Sep-2024 Status:Discontinued Comments:[id number] thiamine 100 MG Oral Tablet;100 MILLIGRAM DAILY Quantity:1 JANENE Travis MD Start:09-Sep-2024 Status:Discontinued Comments:[id number] LORazepam 2 MG/ML Injectable Solution;4 MILLIGRAM Q1H PRN Quantity:2 JANENE Travis MD Start:09-Sep-2024 Status:Discontinued Comments:[id number] Administration Instructions:WHEN GIVIN IV INJECTION - MIX 1:1 WITH NS OR STERILE WATER LORazepam 2 MG/ML Injectable Solution;2 MILLIGRAM Q1H PRN Quantity:1 JANENE Travis MD Start:09-Sep-2024 Status:Discontinued Comments:[id number] Administration Instructions:WHEN GIVIN IV INJECTION - MIX 1:1 WITH NS OR STERILE WATER 1 ML Sodium Chloride 9 MG/ML Prefilled Syringe;10 MILLILITER ASDIR Quantity:1 Dbei Baig MD Start:09-Sep-2024 Status:Discontinued Comments:[id number] Administration Instructions:flush every shift and before after each IVmedication is administered 1 ML ketorolac tromethamine 15 MG/ML Injection;15 MILLIGRAM X1ED Quantity:1 Debi Baig MD Start:53-Eih-8558Zgh:2024 Comments:[id number] lidocaine 0.04 MG/MG Medicated Patch;1 PATCH X1ED Quantity:1 Debi Baig MD Start:73-Irr-8021Pgk:2024 Comments:[id number] Administration Instructions:*May be administered concurrently with oral orinjectable pain medications if ordered.*Patch(es) may remain in place for up to 12 hours inany 24 hour period.*Apply the patch(es) to intact skin to cover the mostpainful area. sodium chloride 9 MG/ML Injectable Solution;[id number] Debi Baig MD Start:39-Dhk-3969Kvd:2024 Comments:[id number] potassium phosphate 155 MG / sodium phosphate, dibasic 852 MG / sodium phosphate, monobasic 130 MG Oral Tablet [K-Phos Neutral];500 MILLIGRAM ONCE Quantity:2 Gilbert Parsons MD Start:46-Xfx-6456Jdp:05-Sep-2024 Comments:[id number] Administration Instructions:FOR NEUTRA-PHOS 1 ML Sodium Chloride 9 MG/ML Prefilled Syringe;10 MILLILITER Q12HR Quantity:1 Jacky Jimenez MD Start:05-Sep-2024 Status:Discontinued Comments:[id number] Administration Instructions:flush every shift and before after each IVmedication is administered 24 HR isosorbide mononitrate 30 MG Extended Release Oral Tablet [Imdur];30 MILLIGRAM BID Quantity:1 Chava Parsons MD Start:05-Sep-2024 Status:Discontinued Comments:[id number] Administration Instructions:DO NOT CRUSH, CUT, OR CHEW amLODIPine 5 MG Oral Tablet [Norvasc];10 MILLIGRAM DAILY Quantity:2 Chava Parsons MD Start:05-Sep-2024 Status:Discontinued Comments:[id number] magnesium oxide 400 MG Oral Tablet [Mag-Ox 400];400 MILLIGRAM DAILY Quantity:1 Chaav Parsons MD Start:05-Sep-2024 Status:Discontinued Comments:[id number] clopidogrel 75 MG Oral Tablet [Plavix];75 MILLIGRAM DAILY Quantity:1 Chava Parsons MD Start:05-Sep-2024 Status:Discontinued Comments:[id number] LOSARTAN POTASSIUM 50 MG TABLET_LOSA50TA;50 MILLIGRAM DAILY Quantity:1 Chava Parsons MD Start:05-Sep-2024 Status:Discontinued Comments:[id number] insulin, regular, human 100 UNT/ML Injectable Solution [HumuLIN R];[id number] Administration Instructions:AGGRESSIVE SLIDING YBHTE61-964 MG/DL, 0 OFNRV448-973 MG/DL, 2 MZEKX001-156 MG/DL, 4 GJCXZ285-109 MG/DL, 6 BWEKB985-187 MG/DL, 8 MBTXW990-783 MG/DL, 10 UNITS>= 400 MG/DL, 12 UNITS ANDCALL RESULTS TO PHYSICIANGlucose level <= 60 Quantity:0 Chava Parsons MD Start:05-Sep-2024 Status:Discontinued Comments:[id number] Administration Instructions:AGGRESSIVE SLIDING MJSGM81-652 MG/DL, 0 QACOS799-805 MG/DL, 2 UPMVX227-304 MG/DL, 4 NAUTQ878-814 MG/DL, 6 JHTWL782-983 MG/DL, 8 YDIKI129-522 MG/DL, 10 UNITS>= 400 MG/DL, 12 UNITS ANDCALL RESULTS TO PHYSICIANGlucose level <= 60 chlordiazePOXIDE hydrochloride 25 MG Oral Capsule;25 MILLIGRAM Q8H PRN Quantity:1 Chava Parsons MD Start:04-Sep-2024 Status:Discontinued Comments:[id number] acetaminophen 325 MG Oral Tablet;650 MILLIGRAM Q6H PRN Quantity:2 Chava Parsons MD Start:04-Sep-2024 Status:Discontinued Comments:[id number] Administration Instructions:MAXIMUM DAILY DOSE OF ACETAMINOPHEN = 4000 MG glucose 4000 MG Chewable Tablet;16 GRAM ASDIR Quantity:4 Chava Parsons MD Start:04-Sep-2024 Status:Discontinued Comments:[id number] Administration Instructions:* If patient asymptomatic, give juice and crackers and callthe physician* If patient able to swallow, give Glucose chewable ipllywp42 gram orally as needed for blood glucose <60 orsymptomatic hypoglycemiaCHEW TABLETS THOROUGHLY BEFORE SWALLOWING 50 ML glucose 500 MG/ML Prefilled Syringe;[id number] Administration Instructions:If patient unable to swallow and has IV access* blood sugar 60-69 mg/dl- hold insulinand administer 15 mL (7.5 grams);* Blood sugar 50-59 mg/dl- hold insulinand administer 20 mL (10 grams);* Blood sugar 30-49 mg/dl- hold insulin and Quantity:0 Chava Parsons MD Start:04-Sep-2024 Status:Discontinued Comments:[id number] Administration Instructions:If patient unable to swallow and has IV access* blood sugar 60-69 mg/dl- hold insulinand administer 15 mL (7.5 grams);* Blood sugar 50-59 mg/dl- hold insulinand administer 20 mL (10 grams);* Blood sugar 30-49 mg/dl- hold insulin and LORazepam 2 MG/ML Injectable Solution;2 MILLIGRAM Q1H PRN Quantity:1 Chava Parsons MD Start:04-Sep-2024 Status:Discontinued Comments:[id number] Administration Instructions:WHEN GIVIN IV INJECTION - MIX 1:1 WITH NS OR STERILE WATER chlordiazePOXIDE hydrochloride 5 MG Oral Capsule;10 MILLIGRAM Q8H PRN Quantity:2 Chava Parsons MD Start:04-Sep-2024 Status:Discontinued Comments:[id number] insulin, regular, human 100 UNT/ML Injectable Solution [HumuLIN R];10 UNITS NOW Quantity:1 Chava Parsons MD Start:58-Pdt-1672Gbl:04-Sep-2024 Comments:[id number] Administration Instructions:HIGH ALERT DRUG< >< >< >Caution, Look Alike Sound Alike< >< >< >*DISPOSE OF UNUSED INSULIN IN BLACK BOX* metoprolol tartrate 25 MG Oral Tablet;25 MILLIGRAM BID Quantity:1 Chava Parsons MD Start:04-Sep-2024 Status:Discontinued Comments:[id number] apixaban 5 MG Oral Tablet [Eliquis];5 MILLIGRAM BID Quantity:1 Chava Parsons MD Start:04-Sep-2024 Status:Discontinued Comments:[id number] lidocaine 0.04 MG/MG Medicated Patch;1 PATCH DAILY Quantity:1 Chava Parsons MD Start:04-Sep-2024 Status:Discontinued Comments:[id number] Administration Instructions:*May be administered concurrently with oral orinjectable pain medications if ordered.*Patch(es) may remain in place for up to 12 hours inany 24 hour period.*Apply the patch(es) to intact skin to cover the mostpainful area. levETIRAcetam 500 MG Oral Tablet;500 MILLIGRAM BID Quantity:1 Cahva Parsons MD Start:04-Sep-2024 Status:Discontinued Comments:[id number] acetaminophen 325 MG Oral Tablet;325 MILLIGRAM Q6H PRN Quantity:1 Chava Parsons MD Start:04-Sep-2024 Status:Discontinued Comments:[id number] Administration Instructions:MAXIMUM DAILY DOSE OF ACETAMINOPHEN = 4000 MG traZODone hydrochloride 50 MG Oral Tablet;50 MILLIGRAM BEDTIME Quantity:1 Chava Parsons MD Start:04-Sep-2024 Status:Discontinued Comments:[id number] atorvastatin 40 MG Oral Tablet [Lipitor];40 MILLIGRAM BEDTIME Quantity:1 Chava Parsons MD Start:04-Sep-2024 Status:Discontinued Comments:[id number] ondansetron 2 MG/ML Injectable Solution [Zofran];4 MILLIGRAM Q8H PRN Quantity:1 Chava Parsons MD Start:04-Sep-2024 Status:Discontinued Comments:[id number] Administration Instructions:4 MG dose may be given IV push over 2 MINUTESDoses > 4 mg: Use 50 mL D5W or 0.9% NaCl infuse over 15 minutes morphine SULFATE 2 MG/ML INJ (FK);2 MILLIGRAM Q4H PRN Quantity:1 Chava Parsons MD Start:04-Sep-2024 Status:Discontinued Comments:[id number] Administration Instructions:For patients not responding to oral medication (Defined aspain reassessment score of 7 or greater) or patient NPO nitroglycerin 0.4 MG Sublingual Tablet;0.4 MILLIGRAM Q5M PRN Quantity:1 Chava Parsons MD Start:04-Sep-2024 Status:Discontinued Comments:[id number] Administration Instructions:x 3 doses hold for SBP less than 90 mm Hg 1 ML Sodium Chloride 9 MG/ML Prefilled Syringe;10 MILLILITER ASDIR Quantity:1 Jacky Jimenez MD Start:04-Sep-2024 Status:Discontinued Comments:[id number] Administration Instructions:flush every shift and before after each IVmedication is administered potassium chloride 20 MEQ Extended Release Oral Tablet [K-Dur];40 MILLIEQUIVALENT X1ED Quantity:2 Nya Longoria MD Start:82-Ebn-2287Mka:2024 Comments:[id number] Administration Instructions:Hold for KCl >5.1. DO NOT CUT CRUSH OR CHEW* EACH TABLET MAY BE DISOLVED IN 30 ML OF LIQUID T[place]KE SLURRY OF 20 MG/30 ML SOLN* sodium chloride 9 MG/ML Injectable Solution;[id number] Nya Longoria MD Start:20-Ceb-6768Fot:2024 Comments:[id number] aspirin 81 MG Chewable Tablet;324 MILLIGRAM X1ED Quantity:4 Nya Longoria MD Start:65-Ovr-5858Kds:2024 Comments:[id number] empagliflozin 10 MG Oral Tablet [Jardiance];10 MILLIGRAM PO QAM Start:04-Sep-2024 Comments:10 MG PO QAM carvedilol 3.125 MG Oral Tablet;3.125 MILLIGRAM PO BID PRN Start:04-Sep-2024 Status:Discontinued Comments:3.125 MG PO BID PRN As Needed for SBP GREATER THAN 160 acetaminophen 325 MG / oxyCODONE hydrochloride 5 MG Oral Tablet;1 TABLET X1ED Quantity:1 ARNAN99 Start:24-Qln-7714Zhh:2024 Comments:[id number] aspirin 81 MG Chewable Tablet;324 MILLIGRAM X1ED Quantity:4 ARNAN99 Start:59-Amr-1861Nzb:2024 Comments:[id number] diclofenac sodium 0.01 MG/MG Topical Gel;2 GRAM QID Quantity:1 Richard Parsons MD Start:29-Aug-2024 Status:Discontinued Comments:[id number] Administration Instructions:The proper amount of Diclofenac Sodium Topical Gel should bemeasured using the dosing card supplied in the drug productcarton. The gel should be applied within the rectangulararea of the dosing card up to the 2 gram or 4 gram line. iopamidol;65 MILLILITER .STK-MED Quantity:65 Arnulfo Spain MD Start:70-Prp-1694Kks:2024 midazolam 1 MG/ML Injectable Solution Quantity:1 Richard Parsons MD Start:29-Aug-2024 Status:Discontinued 2 ML fentaNYL 0.05 MG/ML Injection Quantity:1 Richard Parsons MD Start:29-Aug-2024 Status:Discontinued lidocaine hydrochloride 20 MG/ML Injectable Solution Quantity:1 Richard Parsons MD Start:29-Aug-2024 Status:Discontinued Heparin sodium 2 UNT/ML Injectable Solution Quantity:1 Richard Parsons MD Start:29-Aug-2024 Status:Discontinued sodium chloride 9 MG/ML Injectable Solution;[id number] Richard Parsons MD Start:36-Vbe-2133Cfi:2024 Comments:[id number] 24 HR isosorbide mononitrate 30 MG Extended Release Oral Tablet;30 MILLIGRAM PO BID Start:29-Aug-2024 Comments:30 MG PO BID Pain Relief Patch;1 PATCH TRANSDERMAL DAILY Start:29-Aug-2024 Status:Discontinued Comments:1 PATCH TRANSDERM DAILY amLODIPine 10 MG Oral Tablet;10 MILLIGRAM PO DAILY Start:29-Aug-2024 Comments:10 MG PO DAILY clopidogrel 75 MG Oral Tablet;75 MILLIGRAM PO DAILY Start:29-Aug-2024 Comments:75 MG PO DAILY apixaban 5 MG Oral Tablet [Eliquis];5 MILLIGRAM PO BID Start:29-Aug-2024 Comments:5 MG PO BID metoprolol tartrate 25 MG Oral Tablet;25 MILLIGRAM PO BID Start:29-Aug-2024 Comments:25 MG PO BID sodium chloride 9 MG/ML Injectable Solution;[id number] Richard Parsons MD Start:86-Pev-1039Ync:2024 Comments:[id number] amLODIPine 5 MG Oral Tablet [Norvasc];5 MILLIGRAM DAILY Quantity:1 Dixon Parsons MD Start:28-Aug-2024 Status:Discontinued Comments:[id number] LOSARTAN POTASSIUM 50 MG TABLET_LOSA50TA;100 MILLIGRAM DAILY Quantity:2 Dixon Parsons MD Start:28-Aug-2024 Status:Discontinued Comments:[id number] amLODIPine 5 MG Oral Tablet [Norvasc];10 MILLIGRAM DAILY Quantity:2 Richard Parsons MD Start:28-Aug-2024 Status:Discontinued Comments:[id number] LOSARTAN POTASSIUM 50 MG TABLET_LOSA50TA;50 MILLIGRAM DAILY Quantity:1 Dixon Parsons MD Start:28-Aug-2024 Status:Discontinued Comments:[id number] 24 HR isosorbide mononitrate 30 MG Extended Release Oral Tablet [Imdur];30 MILLIGRAM BID Quantity:1 Richard Parsons MD Start:28-Aug-2024 Status:Discontinued Comments:[id number] Administration Instructions:DO NOT CRUSH, CUT, OR CHEW budesonide 0.25 MG/ML Inhalation Suspension [Pulmicort];0.5 MILLIGRAM RTBID Quantity:1 Dominique Parsons Start:27-Aug-2024 Status:Discontinued Comments:[id number] ipratropium bromide 0.2 MG/ML Inhalation Solution;0.5 MILLIGRAM ONCE Quantity:1 Dominique Parsons Start:80-Yyx-6919Qqx:2024 Comments:[id number] 1 ML Sodium Chloride 9 MG/ML Prefilled Syringe;5 MILLILITER PROCEDURE Quantity:1 Arnulfo Spain MD Start:95-Qmh-9574Ysl:2024 Comments:[id number] Administration Instructions: STRESS TEST sodium chloride 9 MG/ML Injectable Solution;[id number] Administration Instructions: STRESS TEST Arnulfo Spain MD Start:84-Rij-0703Hpr:2024 Comments:[id number] Administration Instructions: STRESS TEST regadenoson;0.4 MILLIGRAM PROCEDURE Quantity:1 Arnulfo Spain MD Start:93-Jji-1058Dkd:2024 Comments:[id number] Administration Instructions: STRESS TEST Aminophylline 25 MG/ML Injectable Solution;100 MILLIGRAM PROCEDURE Quantity:1 Arnulfo Spain MD Start:96-Xxo-2477Akm:2024 Comments:[id number] Administration Instructions:For Stress Test, 2 minutes post nuclear isotope injection ipratropium bromide 0.2 MG/ML Inhalation Solution;0.5 MILLIGRAM ONCE Quantity:1 Dominique Parsons Start:97-Bqx-1697Vow:2024 Comments:[id number] budesonide 0.125 MG/ML Inhalation Suspension [Pulmicort];0.25 MILLIGRAM ONCE Quantity:1 Dominique Parsons Start:09-Jav-2967Fck:2024 Comments:[id number] atorvastatin 40 MG Oral Tablet [Lipitor];40 MILLIGRAM BEDTIME Quantity:1 Dominique Parsons Start:26-Aug-2024 Status:Discontinued Comments:[id number] traZODone hydrochloride 50 MG Oral Tablet;50 MILLIGRAM BEDTIME Quantity:1 Dominique Hunter R1 Start:26-Aug-2024 Status:Discontinued Comments:[id number] nitroglycerin 0.02 MG/MG Topical Ointment [Nitro-Bid];1 INCH Q6HR Quantity:1 Dixon Parsons MD Start:26-Aug-2024 Status:Discontinued Comments:[id number] Administration Instructions:1 GM = [address] ORTIZ 08/26 @1325CONTINUE IT WITH NITOGLYCERIN 0.4 MG SL Q5M PRN ANDISOSORBIDE MONO 30MG DAILY BECAUSE PATIENT HAS CHEST PAIN magnesium oxide 400 MG Oral Tablet [Mag-Ox 400];400 MILLIGRAM Q4H PRN Quantity:1 Arnulfo Spain MD Start:26-Aug-2024 Status:Discontinued Comments:[id number] Administration Instructions:Mag 1.3-1.5 mg/dL Magnesium Oxide 400 mg (PO/feeding tube)q4hr x 3 dosesOR Magnesium Sulfate 4 gm IV x 1 dose ifpatient NPORecheck Magnesiumn Level in AM potassium chloride 20 MEQ Extended Release Oral Tablet [K-Dur];20 MILLIEQUIVALENT Q2H PRN Quantity:1 Arnulfo Spain MD Start:26-Aug-2024 Status:Discontinued Comments:[id number] Administration Instructions:Potassium Level Replacement < 2.5 mEq/L2.5-3.1 mEq/L 20 mEq q2hr x 33.2-3.5 mEq/L 20 mEq q2hr x 23.6-4.0 mEq/L 20 mEq x 1 doseLabs- Upon initiation of electrolyte replacement: potassium bicarbonate 10 MEQ Effervescent Oral Tablet [Effer-K];20 MILLIEQUIVALENT Q2H PRN Quantity:2 Arnulfo Spain MD Start:26-Aug-2024 Status:Discontinued Comments:[id number] Administration Instructions:* Dissolve in 60 to 90 mL of cold water (flavoredtablets) or juice (unflavored tablets) beforeadministration.* Do NOT crush or chew* Administer with or immediately after food. Each doseshould be dissolved in appropriate amount of liquid and 100 ML potassium chloride 0.1 MEQ/ML Injection;[id number] Administration Instructions:Potassium Level via Peripheral Line (Max rate: 10 mEq/hr) < 2.5 mEq/L 10 mEq q2hr x 6 and notify physician2.5-3.1 mEq/L 10 mEq q2hr x 63.2-3.5 mEq/L 10 mEq q2hr x 4 Arnulfo Spain MD Start:26-Aug-2024 Status:Discontinued Comments:[id number] Administration Instructions:Potassium Level via Peripheral Line (Max rate: 10 mEq/hr) < 2.5 mEq/L 10 mEq q2hr x 6 and notify physician2.5-3.1 mEq/L 10 mEq q2hr x 63.2-3.5 mEq/L 10 mEq q2hr x 4 100 ML magnesium sulfate 40 MG/ML Injection;[id number] Administration Instructions:Magnesium Level Mag Replacement Dose ----< 1.3 mg/dL Magnesium Sulfate 4 gm IV x 1 doses andnotify physician1.3 - 1.5 mg/dL Magnesium Oxide 400 mg (PO/feeding tube)q4hr x 3 doses Arnulfo Spain MD Start:26-Aug-2024 Status:Discontinued Comments:[id number] Administration Instructions:Magnesium Level Mag Replacement Dose < 1.3 mg/dL Magnesium Sulfate 4 gm IV x 1 doses andnotify physician1.3 - 1.5 mg/dL Magnesium Oxide 400 mg (PO/feeding tube)q4hr x 3 doses Sotalol Hydrochloride 80 MG Oral Tablet;80 MILLIGRAM Q12HR Quantity:1 Arnulfo Spain MD Start:26-Aug-2024 Status:Discontinued Comments:[id number] sodium chloride 9 MG/ML Injectable Solution;[id number] Richard Parsons MD Start:90-Rde-6963Gzy:2024 Comments:[id number] 24 HR isosorbide mononitrate 30 MG Extended Release Oral Tablet [Imdur];30 MILLIGRAM DAILY Quantity:1 Richard Parsons MD Start:26-Aug-2024 Status:Discontinued Comments:[id number] Administration Instructions:DO NOT CRUSH, CUT, OR CHEW morphine SULFATE 2 MG/ML INJ (FK);2 MILLIGRAM ONCE Quantity:1 Richard Parsons MD Start:41-Fmy-2835Hnm:2024 Comments:[id number] 500 ML heparin sodium, porcine 50 UNT/ML Injection;[id number] Administration Instructions:INITIAL WT: 77.7KG (08/26/24)In ALARIS adjust *DOSE* units/kg/hrSEND RX A MSG W/ EACH RATE CHANGE HIGH ALERT MEDICATION Richard Parsons MD Start:26-Aug-2024 Status:Discontinued Comments:[id number] Administration Instructions:INITIAL WT: 77.7KG (08/26/24)In ALARIS adjust *DOSE* units/kg/hrSEND RX A MSG W/ EACH RATE CHANGE HIGH ALERT MEDICATION Heparin sodium 5000 UNT/ML Injectable Solution;2000 UNITS ASDIR Quantity:1 Richard Parsons MD Start:26-Aug-2024 Status:Discontinued Comments:[id number] Administration Instructions:Rebolus 40 units/kg (aPTT 48-57), recheck aPTT in 6 hours(Max Dose = 2,000 units)FT.2000 Heparin sodium 5000 UNT/ML Injectable Solution;4000 UNITS ASDIR Quantity:1 Richard Parsons MD Start:26-Aug-2024 Status:Discontinued Comments:[id number] Administration Instructions:Rebolus 80 units/kg (aPTT < 48), recheck aPTT in 6 hours(Max Dose = 4,000 units)FT.4000 Heparin sodium 5000 UNT/ML Injectable Solution;4000 UNITS BOLUS Quantity:1 Richard Parsons MD Start:48-Ank-7402Mhx:2024 Comments:[id number] Administration Instructions:Maximum Bolus Dose = 4,000 unitsFT.4000 NO IM MEDICATIONS;1 EACH ASDIR Quantity:1 Richard Parsons MD Start:26-Aug-2024 Status:Discontinued Comments:[id number] 1 ML Sodium Chloride 9 MG/ML Prefilled Syringe;10 MILLILITER Q12HR Quantity:1 Nya Longoria MD Start:26-Aug-2024 Status:Discontinued Comments:[id number] Administration Instructions:flush every shift and before after each IVmedication is administered LOSARTAN POTASSIUM 50 MG TABLET_LOSA50TA;50 MILLIGRAM DAILY Quantity:1 Dominique Hunter R1 Start:26-Aug-2024 Status:Discontinued Comments:[id number] folic acid 1 MG Oral Tablet;1 MILLIGRAM DAILY Quantity:1 Dominique Hunter R1 Start:26-Aug-2024 Status:Discontinued Comments:[id number] thiamine 100 MG Oral Tablet;100 MILLIGRAM DAILY Quantity:1 Dominique Hunter R1 Start:26-Aug-2024 Status:Discontinued Comments:[id number] clopidogrel 75 MG Oral Tablet [Plavix];75 MILLIGRAM DAILY Quantity:1 Dominique Parsons Start:26-Aug-2024 Status:Discontinued Comments:[id number] levETIRAcetam 500 MG Oral Tablet;500 MILLIGRAM BID Quantity:1 Dominique Hunter R1 Start:26-Aug-2024 Status:Discontinued Comments:[id number] apixaban 5 MG Oral Tablet [Eliquis];5 MILLIGRAM BID Quantity:1 Dominique Hunter R1 Start:26-Aug-2024 Status:Discontinued Comments:[id number] lidocaine 0.04 MG/MG Medicated Patch;1 PATCH DAILY Quantity:1 Dominique Hunter R1 Start:26-Aug-2024 Status:Discontinued Comments:[id number] Administration Instructions:*May be administered concurrently with oral orinjectable pain medications if ordered.*Patch(es) may remain in place for up to 12 hours inany 24 hour period.*Apply the patch(es) to intact skin to cover the mostpainful area. sodium chloride 9 MG/ML Injectable Solution;[id number] Richard Parsons MD Start:16-Zkx-7545Kcp:2024 Comments:[id number] insulin, regular, human 100 UNT/ML Injectable Solution [HumuLIN R];[id number] Administration Instructions:AGGRESSIVE SLIDING MIDRR84-622 MG/DL, 0 CWSJH920-349 MG/DL, 2 RHLXK924-717 MG/DL, 4 AJVIU604-486 MG/DL, 6 JQBFD831-496 MG/DL, 8 OUPME144-908 MG/DL, 10 UNITS>= 400 MG/DL, 12 UNITS ANDCALL RESULTS TO PHYSICIANGlucose level <= 60 Quantity:0 Dominique Hunter R1 Start:26-Aug-2024 Status:Discontinued Comments:[id number] Administration Instructions:AGGRESSIVE SLIDING BBBNZ36-621 MG/DL, 0 CLBJP587-716 MG/DL, 2 KEYEQ548-951 MG/DL, 4 PLCXI463-802 MG/DL, 6 NXJRP743-615 MG/DL, 8 AQIAM286-639 MG/DL, 10 UNITS>= 400 MG/DL, 12 UNITS ANDCALL RESULTS TO PHYSICIANGlucose level <= 60 1 ML Sodium Chloride 9 MG/ML Prefilled Syringe;10 MILLILITER ASDIR Quantity:1 Nya Longoria MD Start:26-Aug-2024 Status:Discontinued Comments:[id number] Administration Instructions:flush every shift and before after each IVmedication is administered dilTIAZem hydrochloride 60 MG Oral Tablet;60 MILLIGRAM TID Quantity:1 Dominique Parsons Start:26-Aug-2024 Status:Discontinued Comments:[id number] Administration Instructions:CARDIZEM, CARTIA, TIAZAC chlordiazePOXIDE hydrochloride 5 MG Oral Capsule;10 MILLIGRAM TID Quantity:2 Dominique Hunter R1 Start:26-Aug-2024 Status:Discontinued Comments:[id number] cloNIDine hydrochloride 0.1 MG Oral Tablet;0.1 MILLIGRAM DAILY Quantity:1 Dominique Parsons Start:26-Aug-2024 Status:Discontinued Comments:[id number] Administration Instructions:< >< >< >Caution, Look Alike Sound Alike< >< >< > HumaLOG;10 UNITS ONCE Quantity:1 Dominique Hunter R1 Start:92-Llr-9367Ase:2024 Comments:[id number] morphine SULFATE 2 MG/ML INJ (FK);2 MILLIGRAM Q2H PRN Quantity:1 Dominique Parsons Start:26-Aug-2024 Status:Discontinued Comments:[id number] ondansetron 4 MG Disintegrating Oral Tablet;4 MILLIGRAM Q4H PRN Quantity:1 Dominique Parsons Start:26-Aug-2024 Status:Discontinued Comments:[id number] Administration Instructions:* Place tablet on the tongue; it will dissolve in seconds.* Once dissolved, the patient may swallow with saliva.* DO NOT attempt to push ODT tablets through foil backing.* With dry hands, peel back the foil of 1 blister andremove the tablet. nitroglycerin 0.4 MG Sublingual Tablet;0.4 MILLIGRAM Q5M PRN Quantity:1 Dominique Parsons Start:26-Aug-2024 Status:Discontinued Comments:[id number] Administration Instructions:x 3 doses hold for SBP less than 90 mm Hg glucose 4000 MG Chewable Tablet;16 GRAM ASDIR Quantity:4 Dominique Parsons Start:26-Aug-2024 Status:Discontinued Comments:[id number] Administration Instructions:* If patient asymptomatic, give juice and crackers and callthe physician* If patient able to swallow, give Glucose chewable gram orally as needed for blood glucose <60 orsymptomatic hypoglycemiaCHEW TABLETS THOROUGHLY BEFORE SWALLOWING 50 ML glucose 500 MG/ML Prefilled Syringe;[id number] Administration Instructions:If patient unable to swallow and has IV access* blood sugar 60-69 mg/dl- hold insulinand administer 15 mL (7.5 grams);* Blood sugar 50-59 mg/dl- hold insulinand administer 20 mL (10 grams);* Blood sugar 30-49 mg/dl- hold insulin and Quantity:0 Dominique Parsons Start:26-Aug-2024 Status:Discontinued Comments:[id number] Administration Instructions:If patient unable to swallow and has IV access* blood sugar 60-69 mg/dl- hold insulinand administer 15 mL (7.5 grams);* Blood sugar 50-59 mg/dl- hold insulinand administer 20 mL (10 grams);* Blood sugar 30-49 mg/dl- hold insulin and LORazepam 2 MG/ML Injectable Solution;2 MILLIGRAM Q1H PRN Quantity:1 Dominique Parsons Start:26-Aug-2024 Status:Discontinued Comments:[id number] Administration Instructions:WHEN GIVIN IV INJECTION - MIX 1:1 WITH NS OR STERILE WATER LORazepam 2 MG/ML Injectable Solution;4 MILLIGRAM Q1H PRN Quantity:2 Dominique Hnuter R1 Start:26-Aug-2024 Status:Discontinued Comments:[id number] Administration Instructions:WHEN GIVIN IV INJECTION - MIX 1:1 WITH NS OR STERILE WATER 100 ML magnesium sulfate 10 MG/ML Injection;[id number] Administration Instructions:conc. 1 g / 100 ml Dominique Hunter R1 Start:24-Bwd-5105Wgg:2024 Comments:[id number] Administration Instructions:conc. 1 g / 100 ml 1 ML ketorolac tromethamine 30 MG/ML Prefilled Syringe;30 MILLIGRAM X1ED Quantity:1 Nya Longoria MD Start:10-Aod-2265Ymp:2024 Comments:[id number] Administration Instructions:WHEN GIVEN IV, MUST BE OVER NO LESS THAN 15 SECONDS potassium chloride 20 MEQ Extended Release Oral Tablet [K-Dur];40 MILLIEQUIVALENT X1ED Quantity:2 Nya Longoria MD Start:79-Xza-2449Fqf:2024 Comments:[id number] Administration Instructions:Hold for KCl >5.1. DO NOT CUT CRUSH OR CHEW* EACH TABLET MAY BE DISOLVED IN 30 ML OF LIQUID TOMAKE SLURRY OF 20 MG/30 ML SOLN* insulin, regular, human 100 UNT/ML Injectable Solution [HumuLIN R];5 UNITS X1ED Quantity:1 Nya Longoria MD Start:05-Pdb-5703Iut:2024 Comments:[id number] Administration Instructions:HIGH ALERT DRUG< >< >< >Caution, Look Alike Sound Alike< >< >< >*DISPOSE OF UNUSED INSULIN IN BLACK BOX* IOPAMIDOL_ISOV500I;[id number] 0 Nya Longoria MD Start:57-Kun-0136Xif:2024 Comments:[id number] Potassium Chloride 0.2 MEQ/ML Injectable Solution;[id number] Administration Instructions:Hold for KCl >5.1 Nya Longoria MD Start:95-Bsz-7631Oqe:2024 Comments:[id number] Administration Instructions:Hold for KCl >5.1 aspirin 81 MG Chewable Tablet;324 MILLIGRAM X1ED Quantity:4 Nya Longoria MD Start:46-Csu-6209Yoq:2024 Comments:[id number] 1 ML morphine sulfate 4 MG/ML Prefilled Syringe;4 MILLIGRAM X1ED Quantity:1 Nya Longoria MD Start:86-Xli-1986Nnl:2024 Comments:[id number] Administration Instructions:IF PATIENT IS TAKING ORAL, PLEASE CALL PHARMACY. cloNIDine hydrochloride 0.1 MG Oral Tablet;0.1 MILLIGRAM PO DAILY Start:26-Aug-2024 Status:Discontinued Comments:0.1 MG PO DAILY As Needed for SBP > 180 OR DBP > 100 acetaminophen 325 MG Oral Tablet;325 MILLIGRAM PO Q6H PRN Start:26-Aug-2024 Status:Discontinued Comments:325 MG PO Q6H PRN As Needed for PAIN carvedilol 3.125 MG Oral Tablet;3.125 MILLIGRAM PO BID MEALS Start:26-Aug-2024 Status:Discontinued Comments:3.125 MG PO BID MEALS POTASSIUM GLUCONATE;99 MILLIGRAM PO DAILY Start:26-Aug-2024 Status:Discontinued Comments:99 MG PO DAILY TRULICITY;0.75 MILLIGRAM SUBCUTANEOUS Grey Start:26-Aug-2024 Comments:0.75 MG SUBQ Grey metFORMIN hydrochloride 1000 MG Oral Tablet;1000 MILLIGRAM PO BID MEALS Start:26-Aug-2024 Comments:1000 MG PO BID MEALS atorvastatin 40 MG Oral Tablet;40 MILLIGRAM PO BEDTIME Start:26-Aug-2024 Comments:40 MG PO BEDTIME traZODone hydrochloride 50 MG Oral Tablet;50 MILLIGRAM PO BEDTIME Start:26-Aug-2024 Comments:50 MG PO BEDTIME glipiZIDE 5 MG Oral Tablet [Glucotrol];5 MILLIGRAM PO BID Start:26-Aug-2024 Comments:5 MG PO BID vitamin B6 100 MG Oral Tablet;100 MILLIGRAM PO DAILY Start:26-Aug-2024 Comments:100 MG PO DAILY losartan potassium 50 MG Oral Tablet;50 MILLIGRAM PO DAILY Start:26-Aug-2024 Comments:50 MG PO DAILY folic acid 1 MG Oral Tablet;1 MILLIGRAM PO DAILY Start:26-Aug-2024 Comments:1 MG PO DAILY magnesium oxide 400 MG Oral Tablet;400 MILLIGRAM PO DAILY Start:26-Aug-2024 Comments:400 MG PO DAILY levETIRAcetam 500 MG Oral Tablet;500 MILLIGRAM PO BID Start:26-Aug-2024 Comments:500 MG PO BID Ergocalciferol 1.25 MG Oral Capsule;1250 MICROGRAM PO Grey Start:26-Aug-2024 Comments:1250 MCG PO Grey vitamin B12 1 MG Oral Tablet;1000 MICROGRAM PO DAILY Start:26-Aug-2024 Comments:1000 MCG PO DAILY sodium chloride 9 MG/ML Injectable Solution;[id number] Nya Longoria MD Start:7-Rnv-3505Pob: Comments:[id number] calcium chloride 0.2 MG/ML / potassium chloride 0.3 MG/ML / sodium chloride 6 MG/ML / sodium lactate 3.1 MG/ML Injectable Solution;[id number] Chu Francisco MD Start:10-Iau-1644Ssw:2024 Comments:[id number] insulin, regular, human 100 UNT/ML Injectable Solution;5 UNITS X1ED Quantity:1 Chu Francisco MD Start:29-Uht-4940Knb:2024 Comments:[id number] Administration Instructions: May be substituted for NOVOlin R per policy Dispose of leftover medication vials in a Black[employer]azard[employer] T[employer] Waste containerdue to the presence of M-Cresol calcium chloride 0.2 MG/ML / potassium chloride 0.3 MG/ML / sodium chloride 6 MG/ML / sodium lactate 3.1 MG/ML Injectable Solution;[id number] Chu Francisco MD Start:75-Pqa-1359Kqq:2024 Comments:[id number] ibuprofen 600 MG Oral Tablet;600 MILLIGRAM X1ED Quantity:1 Chu Francisco MD Start:36-Grv-8862Vjw:2024 Comments:[id number] Administration Instructions:MAY BE SUBSTITUTED FOR ORUDIS 50MG OR TOLECTIN 600MGTAKE WITH FOOD OR MILK DO NOT EXCEED 3200MG IBUPROFEN (MOTRIN) IN 24 HOURS sodium chloride 9 MG/ML Injectable Solution;1000 MILLILITERS BOLUS ONCE Quantity:1 Marco A Willams MD Start:5-Fxf-2231Wql:19-Jun-19 Comments:[id number] ondansetron 2 MG/ML Injectable Solution [Zofran];4 MILLIGRAM X1ED Quantity:1 Marco A Willams MD Start:6-Lwq-4079Sak:19-Jun-19 Comments:[id number] Administration Instructions: IV PUSH OVER AT LEAST 30 SECONDS sodium chloride 9 MG/ML Injectable Solution;1000 MILLILITERS X1ED Quantity:1 Bassam Lopez DO Start:6-Ack-0646Eug:19-Apr-19 Comments:[id number] ketorolac tromethamine 30 MG/ML Injectable Solution;15 MILLIGRAM X1ED Quantity:1 Bassam Lopez DO Start:0-Wyg-6896Ife:19-Apr-19 Comments:[id number] Administration Instructions: Do NOT exceed 120 mg parenteral Ketorolac (Toradol) in24 hours Ketorolac should not be given for longer than 5consecutive days, regardless of route or indication, due toincreased potential for higher incidence severity of GI diphenhydrAMINE hydrochloride 50 MG/ML Injectable Solution;25 MILLIGRAM Q6H PRN Quantity:1 Aman Heath MD Start:01-Sri-8989Imy:2024 Status:Discontinued Comments:[id number] sodium chloride 9 MG/ML Injectable Solution;500 MILLILITERS BOLUS Quantity:1 Aman Heath MD Start:78-Sjt-3794Ehm:2024 Status:Discontinued Comments:[id number] carvedilol 12.5 MG Oral Tablet [Coreg];12.5 MILLIGRAM Q12HR Quantity:1 Bar Crooks MD Start:95-Igl-5301Rze:2024 Status:Discontinued Comments:[id number] Administration Instructions:MAY BE SUBSTITUTED FOR COREG CR 40MG DAILY PER PROTOCOLAVOID WITH GRAPEFRUIT JUICE folic acid 1 MG Oral Tablet;1 MILLIGRAM DAILY Quantity:1 Vincent Jimenez DO Start:51-Wtz-7398Ckk:2024 Status:Discontinued Comments:[id number] Multi Vitamin;1 TABLET DAILY Quantity:1 Vincent Jimenez DO Start:06-Pdb-3395Kjr:2024 Status:Discontinued Comments:[id number] Administration Instructions:FORMULARY SUBSTITUTE FOR ALL MULTIVITAMIN WITHOUT MINERALSPRODUCTS LORazepam 2 MG/ML Injectable Solution;1 MILLIGRAM Q2H PRN Quantity:1 Aamn Heath MD Start:03-Mre-8516Xje: Status:Discontinued Comments:[id number] Administration Instructions:IF USED IV: DILUTE IV DOSE WITH EQUAL VOLUME NS OR STERILEWATER DILUENT---Do not exceed 2mg/minuteLOOK ALIKE/SOUND ALIKE DRUGDO NOT CONFUSE WITH ALPRAZolam!!! LORazepam 2 MG/ML Injectable Solution;1 MILLIGRAM ONCE Quantity:1 Aman Heath MD Start:30-Ggb-6420Jep:2023 Comments:[id number] Administration Instructions:IF USED IV: DILUTE IV DOSE WITH EQUAL VOLUME NS OR STERILEWATER DILUENT---Do not exceed 2mg/minuteLOOK ALIKE/SOUND ALIKE DRUGDO NOT CONFUSE WITH ALPRAZolam!!! ATORVASTATIN CALCIUM 40 MG TABLET;40 MILLIGRAM BEDTIME Quantity:1 Aman Heath MD Start:31-Tth-4950Gch:2024 Status:Discontinued Comments:[id number] Administration Instructions: THIS MED MAY BE SUBSTITUTED FOR SIMVASTATIN 80MG thiamine 100 MG Oral Tablet;100 MILLIGRAM BID Quantity:1 Vincent Jimenez DO Start:61-Tkk-0356Miv:2024 Status:Discontinued Comments:[id number] Administration Instructions:If unable to take by mouth give IVPB 1 ML morphine sulfate 4 MG/ML Prefilled Syringe;4 MILLIGRAM Q4H PRN Quantity:1 Vincent Jimenez DO Start:81-Okr-2982Vfd: Status:Discontinued Comments:[id number] potassium chloride 20 MEQ Extended Release Oral Tablet;40 MILLIEQUIVALENT ONCE Quantity:2 Vincent Jimenez DO Start:77-Oow-0000Ahu:2023 Comments:[id number] Administration Instructions:USE FOR K-DUR TAB ORDERSDO NOT CRUSHGIVE WITH 4-8 OUNCES OF WATER OR FRUIT JUICEMAY DISSOLVE IN 5-10ML OF WATER BEFORE GIVING Magnesium Sulfate 0.325 MEQ/ML Injectable Solution;Provider Administration Instructions:MAGNESIUM 2GM/STERILE WATER 50ML Vincent Jimenez DO Start:35-Rme-4087Cra:2023 Comments:Provider Administration Instructions:MAGNESIUM 2GM/STERILE WATER 50ML potassium chloride 20 MEQ Extended Release Oral Tablet;40 MILLIEQUIVALENT Q2H Quantity:2 Vincent Jimenez DO Start:66-Xqa-5804Sww:2023 Comments:Provider Administration Instructions:USE FOR K-DUR TAB ORDERSDO NOT CRUSHGIVE WITH 4-8 OUNCES OF WATER OR FRUIT JUICEMAY DISSOLVE IN 5-10ML OF WATER BEFORE GIVING morphine sulfate 15 MG Oral Tablet;15 MILLIGRAM Q6H PRN Quantity:1 Vincent Jimenez DO Start:59-Jzt-5049Qje: 024 Status:Discontinued Comments:[id number] Administration Instructions:MORPHINE SULFATE IMMEDIATE-RELEASE (MSIR) LORazepam 1 MG Oral Tablet;1 MILLIGRAM Q2H WA Quantity:1 Vincent Jimenez DO Start:97-Kam-2327Uzb: Status:Discontinued Comments:[id number] Administration Instructions:CIWA-Ar Score 10-19:FOR PATIENTS AGE 18 TO 65MAY CAUSE DROWSINESSLORazepam = ATIVAN DO NOT EXCEED 10MG LORAZEPAM (ATIVAN) IN 24 HOURS UNLESSDIRECTED BY PHYSICIAN LOOK ALIKE/SOUND ALIKE DRUGDO NOT CONFUSE WITH ALPRAZolam!!! LORazepam 2 MG/ML Injectable Solution;2 MILLIGRAM Q2H WA Quantity:1 Vincent Jimenez DO Start:10-Glk-3874Zkk: Status:Discontinued Comments:[id number] Administration Instructions:CIWA-Ar Score 20 or greaterFOR PATIENTS AGE 18 TO 65IF IV ACCESS IS NOT AVAILABLE, GIVE IM DO NOT EXCEED 10MG LORAZEPAM (ATIVAN) IN 24 HOURS UNLESSDIRECTED BY PHYSICIAN IF USED IV: DILUTE IV DOSE WITH EQUAL VOLUME NS OR STERILE flumazenil 0.1 MG/ML Injectable Solution;0.2 MILLIGRAM ASDIR Quantity:1 Vincent Lakeisha Jimenez Start:84-Spr-4160Ijk:2024 Status:Discontinued Comments:[id number] Administration Instructions:Give 0.2 mg IV push as needed if patient is somnolent,poorly responsive, or unresponsive and respiratory rate lessthan or equal to 8 breaths/minute. May repeat dose every 1minute up to a total of 1 mg. carvedilol 3.125 MG Oral Tablet [Coreg];3.125 MILLIGRAM Q12HR Quantity:1 Aman Heath MD Start:20-Tat-3459Ogy:2024 Status:Discontinued Comments:[id number] Administration Instructions:MAY BE SUBSTITUTED FOR COREG CR 10MG DAILY PER PROTOCOLAVOID WITH GRAPEFRUIT JUICE predniSONE 20 MG Oral Tablet;40 MILLIGRAM DAILY Quantity:2 Aman Heath MD Start:43-Xom-9986Gss: Status:Discontinued Comments:[id number] Administration Instructions:TAKE WITH FOOD OR MILK losartan potassium 50 MG Oral Tablet;50 MILLIGRAM DAILY Quantity:1 Aman Heath MD Start:11-Kwb-5435Myu:2024 Status:Discontinued Comments:[id number] insulin lispro 100 UNT/ML Injectable Solution [HumaLOG];[id number] Administration Instructions:MODERATE SLIDING SCALE INSULINHumuLOG = INSULIN LISPROLOOK ALIKE/SOUND ALIKE DRUGDO NOT CONFUSE WITH HumuLIN!!!MAY BE SUBSTITUTED FOR NovoLOG PER PROTOCOLDISPOSE OF LEFTOVER MED VIALS IN A BLACK HAZARDOUS Quantity:0 Aman Heath MD Start:17-Czf-9244Qlv:2024 Status:Discontinued Comments:[id number] Administration Instructions:MODERATE SLIDING SCALE INSULINHumuLOG = INSULIN LISPROLOOK ALIKE/SOUND ALIKE DRUGDO NOT CONFUSE WITH HumuLIN!!!MAY BE SUBSTITUTED FOR NovoLOG PER PROTOCOLDISPOSE OF LEFTOVER MED VIALS IN A BLACK HAZARDOUS sodium chloride 9 MG/ML Injectable Solution Aman Heath MD Start:99-Jvi-8504Wrs:2024 Status:Discontinued ondansetron 2 MG/ML Injectable Solution [Zofran];4 MILLIGRAM Q8H PRN Quantity:1 Aman Heath MD Start:57-Xib-9593Edo:2024 Status:Discontinued Comments:[id number] Administration Instructions:PER MED STAFF APPROVAL: MAXIMUM DOSE IS 8MGMAX FREQUENCY IS Q 8 HOURSMAY BE SUBSTITUTED FOR ANZEMET 1.8 MG/KG OR 100MG IV ORKYTRIL 1.8 MCG/KG OR 1MG IV PER PROTOCOL acetaminophen 325 MG Oral Tablet;650 MILLIGRAM Q4H PRN Quantity:2 Aman Heath MD Start:41-Kop-4727Qqs:2024 Status:Discontinued Comments:[id number] Administration Instructions:DO NOT EXCEED 4000MG ACETAMINOPHEN PER 24 HRS 1 ML hydrALAZINE hydrochloride 20 MG/ML Injection;10 MILLIGRAM Q6H PRN Quantity:1 Aman Heath MD Start:29-Sfl-4495Cse:2024 Status:Discontinued Comments:[id number] Administration Instructions: SLOW IV PUSH OVER 3 TO 5 MINUTES HydrALAZINE = APRESOLINELOOK ALIKE/SOUND ALIKE DRUGDO NOT CONFUSE WITH HydrOXYzine!!! glucose 4000 MG Chewable Tablet;16 GRAM ASDIR Quantity:4 Aman Heath MD Start:37-Gia-5021Vyg:2024 Status:Discontinued Comments:[id number] Administration Instructions:GIVE IF BLOOD GLUCOSE LESS THAN 70 MG/DL ABLE TO TAKE PO. 50 ML glucose 500 MG/ML Prefilled Syringe;12.5 GRAM ASDIR Quantity:1 Aman Heath MD Start:09-Bkx-5989Gcb:2024 Status:Discontinued Comments:[id number] Administration Instructions:FOR PATIENTS WITH A BLOOD GLUCOSE LEVEL LESS THAN 70 MG/DLWHO DO NOT HAVE ORAL INTAKEGIVE OVER 5 MINUTESRECHECK IN 15 MINUTES. IF GLOOD GLUCOSE LESS THAN 70 MG/DL,NOTIFY PHYSCIAN AND GIVE REMAINING 12.5 GM (25 ML) IV OVER 5MINUTES STAT. 1 ML morphine sulfate 4 MG/ML Prefilled Syringe;4 MILLIGRAM ONCE Quantity:1 Aman Heath MD Start:23-Qgr-3216Bis:2023 Comments:[id number] 1 ML hydrALAZINE hydrochloride 20 MG/ML Injection;10 MILLIGRAM ONCE Quantity:1 Aman Heath MD Start:25-Dum-4114Fjq:2023 Comments:[id number] Administration Instructions:HydrALAZINE = APRESOLINELOOK ALIKE/SOUND ALIKE DRUGDO NOT CONFUSE WITH HydrOXYzine!!! carvedilol 3.125 MG Oral Tablet;3.125 MILLIGRAM PO BID Start:12-Feb-2024 Comments:3.125 MG PO BID atorvastatin 40 MG Oral Tablet;40 MILLIGRAM PO BEDTIME Start:12-Feb-2024 Comments:40 MG PO BEDTIME losartan potassium 50 MG Oral Tablet [Cozaar];50 MILLIGRAM PO DAILY Start:12-Feb-2024 Comments:50 MG PO DAILY cephalexin 250 MG Oral Capsule;250 MG PO Start:12-Feb-2024 Status:Discontinued Comments:250 MG PO 1 ML morphine sulfate 4 MG/ML Prefilled Syringe;4 MILLIGRAM X1ED Quantity:1 Alverto Arzola DO Start:76-Rgv-4497Smf:2023 Comments:[id number] 1 ML hydrALAZINE hydrochloride 20 MG/ML Injection;10 MILLIGRAM X1ED Quantity:1 Alverto Arzola DO Start:86-Jrh-3781Vpu:2023 Comments:[id number] Administration Instructions:HydrALAZINE = APRESOLINELOOK ALIKE/SOUND ALIKE DRUGDO NOT CONFUSE WITH HydrOXYzine!!! 1 ML morphine sulfate 4 MG/ML Prefilled Syringe;4 MILLIGRAM X1ED Quantity:1 Alverto Arzola DO Start:58-Prq-3127Hps:2023 Comments:[id number] ondansetron 2 MG/ML Injectable Solution [Zofran];4 MILLIGRAM X1ED Quantity:1 Alverto Arzola DO Start:56-Ozz-5949Vje:2023 Comments:[id number] Administration Instructions: IV PUSH OVER AT LEAST 30 SECONDS sodium chloride 9 MG/ML Injectable Solution;1000 MILLILITERS X1ED Quantity:1 Alverto Arzola DO Start:95-Pts-6216Sfx:2023 Comments:[id number] sodium chloride 9 MG/ML Injectable Solution;[id number] Bryn Verdugo MD Start:92-Nxt-2523Jfg:2023 Comments:[id number] insulin, regular, human 100 UNT/ML Injectable Solution;5 UNITS X1ED Quantity:1 Bryn Verdugo MD Start:24-Uvq-6725Pre:2023 Comments:[id number] Administration Instructions: DISPOSE IN BLACK CONTAINER acetaminophen 325 MG / HYDROcodone bitartrate 5 MG Oral Tablet;1 TABLET X1ED Quantity:1 Bryn Verdugo MD Start:51-Nzs-1304Mqv:2023 Comments:[id number] Administration Instructions: Do NOT exceed 4,000 mg Acetaminophen in 24 hours HYDROcodone/APAP 5/325 mg ([place] 5 mg), is the FormularySubstitute for all HYDROcodone 5 mg + APAP products (samedose frequency) sodium chloride 9 MG/ML Injectable Solution;[id number] Administration Instructions: BOLUS TO INFUSE OVER 1 HOUR Bryn Verdugo MD Start:24-Sak-7053Fpt:2023 Comments:[id number] Administration Instructions: BOLUS TO INFUSE OVER 1 HOUR 4 ML furosemide 10 MG/ML Injection;80 MILLIGRAM X1ED Quantity:2 Lacy Mellissa DO Start:4-Wex-2304Dbw:21-Jan-20 Comments:[id number] potassium bicarbonate 20 MEQ Effervescent Oral Tablet [Effer-K];40 MILLIEQUIVALENT X1ED Quantity:2 Lacy Mellissa DO Start:1-Ehd-7651Wtp:21-Jan-20 Comments:[id number] LORazepam 2 MG/ML Injectable Solution;1 MILLIGRAM X1ED Quantity:1 Lacy Mellissa DO Start:9-Iiu-8670Iuo:21-Jan-20 Comments:[id number] Administration Instructions:IF USED IV: DILUTE IV DOSE WITH EQUAL VOLUME NS OR STERILEWATER DILUENT---Do not exceed 2mg/minuteLOOK ALIKE/SOUND ALIKE DRUGDO NOT CONFUSE WITH ALPRAZolam!!! aspirin 81 MG Chewable Tablet;324 MILLIGRAM X1ED Quantity:4 Lacy Mellissa DO Start:0-Scn-7164Vqy:21-Jan-20 Comments:[id number] Administration Instructions:TAKE WITH FOOD OR MILK IOPAMIDOL [...] PATCH TRANSDERM DAILY As Needed for Pain TRAZODONE HCL;50 MILLIGRAM PO BEDTIME Start:21-Feb-2016 Comments:50 MG PO BEDTIME sertraline 50 MG Oral Tablet [Zoloft];50 MILLIGRAM PO BEDTIME Start:21-Feb-2016 Comments:50 MG PO BEDTIME clindamycin 300 MG Oral Capsule [Cleocin];600 MILLIGRAM PO TID Start:21-Feb-2016 Status:Discontinued Comments:600 MG PO TID clindamycin 300 MG Oral Capsule [Cleocin];600 MILLIGRAM PO TID Start:21-Feb-2016 Comments:600 MG PO TID METFORMIN HCL;500 MILLIGRAM PO BID MEALS Start:21-Feb-2016 Comments:500 MG PO BID MEALS CULTURELLE;1 EACH PO BID Start:21-Feb-2016 Comments:1 EA PO BID CULTURELLE;1 EACH PO BID Start:21-Feb-2016 Status:Discontinued Comments:1 EA PO BID acetaminophen 325 MG / oxyCODONE hydrochloride 10 MG Oral Tablet [Endocet];1 TABLET PO Q4H PRN Start:21-Feb-2016 Comments:1 TAB PO Q4H PRN As Needed for BREAKTHROUGH PAIN hydrOXYzine pamoate 50 MG Oral Capsule [Vistaril];50 MILLIGRAM PO BEDTIME Start:20-Nov-2014 Comments:50 MG PO BEDTIME naproxen 250 MG Oral Tablet [Naprosyn];500 MILLIGRAM PO BID MEALS Start:20-Nov-2014 Comments:500 MG PO BID MEALS metFORMIN hydrochloride 500 MG Oral Tablet [Glucophage];1000 MILLIGRAM PO BID MEALS Start:20-Nov-2014 Comments:1000 MG PO BID MEALS DULoxetine 30 MG Delayed Release Oral Capsule [Cymbalta];30 MILLIGRAM PO BID Start:20-Nov-2014 Comments:30 MG PO BID amLODIPine 5 MG Oral Tablet;5 MILLIGRAM PO BID Start:20-Nov-2014 Comments:5 MG PO BID morphine sulfate 15 MG Extended Release Oral Tablet [MS Contin];15 MILLIGRAM PO BID Start:20-Nov-2014 Comments:15 MG PO BID glipiZIDE 5 MG Oral Tablet;5 MILLIGRAM PO AC BK Start:20-Nov-2014 Comments:5 MG PO AC BK COLACE 100MG CAPSULE;100 MILLIGRAM PO TID Start:20-Nov-2014 Comments:100 MG PO TID acetaminophen 500 MG Oral Tablet;500 MILLIGRAM ORAL Q8H PRN Quantity:1 Elmira Puente MD Start:19-Nov-2014 Comments:[id number] sennosides, MCFP 8.6 MG Oral Tablet [Senokot];2 TABLET ORAL BEDTIME_2099 Quantity:2 Elmira Puente MD Start:17-Nov-2014 Comments:[id number] Administration Instructions:LaxativesAbdominal Pain or Cramping, Diarrhea insulin, regular, human 100 UNT/ML Injectable Solution [NovoLIN R];[id number] Administration Instructions: COVERAGE Diabetic TherapyDecreased Blood Sugar FLOOR STOCK ITEM PLEASE OBTAIN FROM REFRIGERATOR<< SEE DIABETIC FLOW SHEET >> DO NOT ADMINISTER SCHEDULE SHORT ACTINGINSULIN UNTIL FOOD IS AVAILABLE Quantity:0 Johan Dwyer MD Start:17-Nov-2014 Comments:[id number] Administration Instructions: COVERAGE Diabetic TherapyDecreased Blood Sugar FLOOR STOCK ITEM PLEASE OBTAIN FROM REFRIGERATOR<< SEE DIABETIC FLOW SHEET >> DO NOT ADMINISTER SCHEDULE SHORT ACTINGINSULIN UNTIL FOOD IS AVAILABLE DULoxetine 30 MG Delayed Release Oral Capsule [Cymbalta];30 MILLIGRAM ORAL BID_ Quantity:1 Elmira Puente MD Start:17-Nov-2014 Comments:[id number] Administration Instructions:AntidepressantsInsomnia, Nervousness<< CYMBALTA 30 MG CAPSULE >> amLODIPine 5 MG Oral Tablet;5 MILLIGRAM ORAL BID_899,2099 Quantity:1 Johan Dwyer MD Start:17-Nov-2014 Comments:[id number] Administration Instructions:CardiovascularDecreased Blood Pressure, Sedation glucose 4000 MG Chewable Tablet;12 GRAM ORAL ASDIR Quantity:3 Johan Dwyer MD Start:17-Nov-2014 Comments:[id number] Administration Instructions:If renal failure patient or fluid restricted, give 3 glucosetabs STAT by mouth (PO)(for patient able to chew and swallow)- Recheck Accu-Check every 15 to 30 minutes and repeattreatment until blood glucose greater than 100 mg/dL. 50 ML glucose 500 MG/ML Prefilled Syringe;50 MILLILITER INTRAVEN. ASDIR Quantity:1 Johan Dwyer MD Start:17-Nov-2014 Comments:[id number] Administration Instructions:If BS less than 50 mg/dL, give Dextrose 50% 50 mL (one amp)IV push STAT- Recheck Accu-Check every 15 to 30 minutes and repeattreatment until blood glucose greater than 100 mg/dL.- Notify physician if more than 50 ml of Dextrose 50% ormore than 1 mg Glucagon given. 50 ML glucose 500 MG/ML Prefilled Syringe;25 MILLILITER INTRAVEN. ASDIR Quantity:1 Johan Dwyer MD Start:17-Nov-2014 Comments:[id number] Administration Instructions:If patient is nothing by mouth (NPO) and BS xwloxob83-77oo/dL, give Dextrose 50% 25ml (half amp) IV push.- Recheck Accu-Check every 15 to 30 minutes and repeattreatment until blood glucose greater than 100 mg/dL.- Notify physician if more than 50 ml of Dextrose 50% ormore than 1 mg Glucagon given. glucagon (rDNA) 1 MG Injection [GlucaGen];1 MILLIGRAM INTRAMUSC ASDIR Quantity:1 Johan Dwyer MD Start:17-Nov-2014 Comments:[id number] Administration Instructions:If no IV route accessible, give Glucagon 1mg intramuscular(IM)- Recheck Accu-Check every 15 to 30 minutes and repeattreatment until blood glucose greater than 100 mg/dL.- Notify physician if more than 50 ml of Dextrose 50% ormore than 1 mg Glucagon given. hydrALAZINE hydrochloride 25 MG Oral Tablet;50 MILLIGRAM ORAL Q8H PRN Quantity:2 Johan Dwyer MD Start:17-Nov-2014 Comments:[id number] Administration Instructions:<< APRESOLINE FOR BLOOD PRESSURE >>LOOK ALIKE, SOUND ALIKE docusate sodium 100 MG Oral Capsule;100 MILLIGRAM ORAL TID_0900,1300,2100 Quantity:1 Elmira Puente MD Start:17-Nov-2014 Comments:[id number] Administration Instructions:LaxativesAbdominal Pain or Cramping, DiarrheaLOOK ALIKE, SOUND ALIKE glipiZIDE 5 MG Oral Tablet [Glucotrol];5 MILLIGRAM ORAL AC BK_0730 Elmira Puente MD Start:17-Nov-2014 Comments:[id number] Administration Instructions:Rx [id number] DC'd while checking ints/dups/alls on this Rx. hydrOXYzine pamoate 50 MG Oral Capsule [Vistaril];50 MILLIGRAM ORAL BEDTIME_2100 Quantity:1 Elmira Puente MD Start:16-Nov-2014 Comments:[id number] Administration Instructions:Antispasmodic/AntianxietyD rowsiness, DizzinessLOOK ALIKE, SOUND ALIKE naproxen 250 MG Oral Tablet;500 MILLIGRAM ORAL BID MEALS_0800,1700 Quantity:2 Boy Sanchez MD Start:16-Nov-2014 Comments:[id number] Administration Instructions:Antiarthritics/Non-Narc AnalgIncreased Bruising, Stomach Upset metFORMIN hydrochloride 500 MG Oral Tablet;1000 MILLIGRAM ORAL BID MEALS_0800,1700 Quantity:2 Boy Sanchez MD Start:16-Nov-2014 Comments:[id number] Administration Instructions:<< DO NOT GIVE THE DAY OF AND 24-48 HOURS AFTERIV CONTRAST ADMINISTRATION >>LOOK ALIKE, SOUND ALIKE Haloperidol 5 MG/ML Injectable Solution [Haldol];5 MILLIGRAM INTRAMUSC Q6H Quantity:1 Elmira Puente MD Start:16-Nov-2014 Comments:Provider Administration Instructions:AntipsychoticsDrowsiness, Involuntary Movements aluminum hydroxide 40 MG/ML / magnesium hydroxide 40 MG/ML Oral Suspension;30 MILLILITER ORAL Q4H PRN Quantity:1 Elmira Puente MD Start:16-Nov-2014 Comments:[id number] Administration Instructions:SHAKE WELL PRIOR TO ADMINISTRATION>> FOR EPIGASTRIC DISCOMFORT << hydrOXYzine pamoate 50 MG Oral Capsule [Vistaril];50 MILLIGRAM PO BEDTIME Start:16-Nov-2014 Status:Discontinued Comments:50 MG PO BEDTIME HYDROmorphone hydrochloride 8 MG Oral Tablet;8 MILLIGRAM PO Q6H PRN Start:16-Nov-2014 Comments:8 MG PO Q6H PRN As Needed for PAIN oxyMORphone hydrochloride 10 MG Oral Tablet [Opana];10 MILLIGRAM PO BID Start:16-Nov-2014 Comments:10 MG PO BID clonazePAM 1 MG Oral Tablet [KlonoPIN];1 MILLIGRAM PO QID Start:16-Nov-2014 Status:Discontinued Comments:1 MG PO QID As Needed for ANXIETY HYDROmorphone hydrochloride 8 MG Oral Tablet;8 MILLIGRAM PO Q6H PRN Start:14-Aug-2014 Comments:8 MG PO Q6H PRN As Needed for PAIN traZODone hydrochloride 150 MG Oral Tablet;150 MILLIGRAM ORAL BEDTIME_2100 Quantity:1 Cb Arzola MD Start:11-Dec-2013 Comments:[id number] traMADol hydrochloride 50 MG Oral Tablet;50 MILLIGRAM ORAL Q6H PRN Quantity:1 Cb Arzola MD Start:11-Dec-2013 Comments:[id number] Administration Instructions:MAX 400 MG/DAY (8 TABS)FOR PAINLOOKS ALIKE AND SOUND ALIKE citalopram 20 MG Oral Tablet;20 MILLIGRAM PO BEDTIME Start:11-Dec-2013 Status:Discontinued Comments:20 MG PO BEDTIME metFORMIN hydrochloride 500 MG Oral Tablet [Glucophage];500 MILLIGRAM PO BID MEALS Start:11-Dec-2013 Status:Discontinued Comments:500 MG PO BID MEALS traMADol hydrochloride 50 MG Oral Tablet [Ultram];50 MILLIGRAM PO Q6H PRN Start:11-Dec-2013 Status:Discontinued Comments:50 MG PO Q6H PRN As Needed for MODERATE PAIN ibuprofen 400 MG Oral Tablet;800 MILLIGRAM PO TID PRN Start:11-Dec-2013 Status:Discontinued Comments:800 MG PO TID PRN As Needed for BACK PAIN glipiZIDE 5 MG Oral Tablet;5 MILLIGRAM PO AC BK Start:11-Dec-2013 Status:Discontinued Comments:5 MG PO AC BK glipiZIDE 5 MG Oral Tablet [Glucotrol];5 MILLIGRAM ORAL AC BK Quantity:Charles Dwyer MD Start:10-Dec-2013 Comments:Provider Administration Instructions:Diabetic Therapy [...] BID Start:08-Dec-2013 Status:Discontinued Comments:1 TAB PO BID traZODone hydrochloride 150 MG Oral Tablet;150 MILLIGRAM PO BEDTIME Start:13-Nov-2013 Status:Discontinued Comments:150 MG PO BEDTIME cloNIDine hydrochloride 0.2 MG Oral Tablet;0.2 MILLIGRAM PO BEDTIME Start:13-Nov-2013 Status:Discontinued Comments:0.2 MG PO BEDTIME metFORMIN hydrochloride 500 MG Oral Tablet [Glucophage];1000 MILLIGRAM PO BID MEALS Start:13-Nov-2013 Status:Discontinued Comments:1000 MG PO BID MEALS [id number];2.5 MILLIGRAM PO BID Start:13-Nov-2013 Status:Discontinued Comments:2.5 MG PO BID amLODIPine 5 MG Oral Tablet;5 MILLIGRAM PO BID Start:13-Nov-2013 Status:Discontinued Comments:5 MG PO BID glipiZIDE 10 MG Oral Tablet;10 MILLIGRAM PO [...] Johan Dwyer MD Start:12-Nov-2013 Comments:Provider Administration Instructions:Cardiovascular glucose 4000 MG Chewable Tablet;16 GRAM ORAL ASDIR Quantity:0 Johan Dwyer MD Start:12-Nov-2013 50 ML glucose 500 MG/ML Prefilled Syringe;ASDIRECTED Quantity:0 Johan Dwyer MD Start:12-Nov-2013 Comments:ASDIRECTED glucagon (rDNA) 1 MG Injection [GlucaGen];1 MILLIGRAM INTRAMUSC ASDIR Quantity:0 Johan Dwyer MD Start:12-Nov-2013 cloNIDine [...] Arzola MD Start:10-Nov-2013 Comments:Provider Administration Instructions:FOR AGITATION aluminum hydroxide 40 MG/ML / magnesium hydroxide 40 MG/ML Oral Suspension;30 MILLILITER ORAL Q4H PRN Quantity:0 Cb Arzola MD Start:10-Nov-2013 Comments:Provider Administration Instructions:SHAKE WELL PRIOR TO ADMINISTRATION acetaminophen 325 MG Oral Tablet;650 MILLIGRAM ORAL Q4H PRN Quantity:0 Cb Arzola MD Start:10-Nov-2013 Comments:Provider Administration Instructions:MAXIMUM DOSE IS 4 GRAMS PER DAY Procedures Detoxification Services for Substance Ab use Treatment Date:09-Sep-2024 Fluoroscopy of Left Heart using Low Osmo lar Contrast Date:29-Aug-2024 Measurement of Cardiac Sampl ing and Pressure, Bilateral, Percutaneous Approach Date:29-Aug-2024 Fluoroscopy of Multiple Thais nary Arteries using Low Osmolar Contrast Date:29-Aug-2024 CHEST PORTABLEResult:[facility] [place] [address] [place] [address] PHONE #: [phone] FAX #: [phone] PT.NAME: RAMAN BERNAL Attending Rasheed: Miguel Denise MD : 1965 Ordering Rasheed: Brendan Rogers EAge/Sex: 59/M Location: ED Unit #: [id number] Status: REG ER Admit Diagnosis: DONT FEEL WELL Radiology #: EXAM DATE: 09/11/2024 EXAMS: CPT CODE: [id number] CHEST PORTABLE 52594 EXAMINATION: CHEST PORTABLE CLINICAL INDICATION: Male, 59 [...] Miguel Denise MD; Walker Lui MD; Brendan Rogers MDDictated Date/Time: 09/11/2024 (521)Technologist: GOOD Morris Transcribed Date/Time: 09/11/2024 (521)Refrigerator Repair Technician: SHANNAN Electronic Signature Date/Time: 09/11/2024 (521)Printed Date/Time: 09/11/2024 (524) BATCH NO: N/A PAGE 1 Signed Report Date:11-Sep-2024 Status:Completed CHEST PORTABLEResult:[facility] [place] [address] [place] [address] PHONE #: [phone] FAX #: [phone] PT.NAME: RAMAN BERNAL Attending MPao: Jovanni Carrera MDDOB: 1965 Ordering M.D.: Jovanni Carrera MD Age/Sex: 59/M Location: [facility] Unit #: [id number] Status: REG ER Admit Diagnosis: ETOH WITH BODY LAKSHMI Radiology #: EXAM DATE: 09/09/2024 EXAMS: CPT CODE: [id number] CHEST PORTABLE 74443 EXAMINATION: XR CHEST 1 VIEW 1 view [...] (1404)Technologist: DEONTE ASHTON RTR Transcribed Date/Time: 09/09/2024 (140)Refrigerator Repair Technician: SHANNAN Electronic Signature Date/Time: 09/09/2024 (1404)Printed Date/Time: 09/09/2024 (7287) BATCH NO: N/A PAGE 1 Signed Report Date:09-Sep-2024 Status:Completed CHEST PORTABLEResult:[facility] [place] [address] [place] [address] PHONE #: [phone] FAX #: [phone] PT.NAME: RAMAN BERNAL Attending Rasheed: Bill Taylor MD : 1965 Ordering M.Swati.: Bill Taylor MD Age/Sex: 59/M Location: [facility] Unit #: [id number] Status: REG ER Admit Diagnosis: CP X FEW MONTHS, H Radiology #: EXAM DATE: 09/04/2024 EXAMS: CPT CODE: [id number] CHEST PORTABLE 94207 One view of the chest History: Cough Comparison: August 30, 2024 IMPRESSION: The lungs are clear and there is no pneumothorax or pleural effusion. The heart is mildly enlarged. Prior median sternotomy. Electronically signed by: Abdiel Mcnair MD 09/04/2024 06:32 PM EDT RP at 1832 Reported and signed by: ABDIEL MCNAIR MD CC: Walker Lui MD; Adriana Taylor MDDictated Date/Time: 09/04/2024 (183)Technologist: KARINA TENORIO, RT (R); MINH GAVIN RTR Transcribed Date/Time: 09/04/2024 (1831)Refrigerator Repair Technician: SHANNAN Electronic Signature Date/Time: 09/04/2024 (1831)Printed Date/Time: 09/04/2024 (1835) BATCH NO: N/A PAGE 1 Signed Report Date:04-Sep-2024 Status:Completed CHEST PORTABLEResult:[facility] [place] [address] [place]. [address] PHONE #: [phone] FAX #: [phone] PT.NAME: RAMAN BERNAL Attending M.D.: Db Curiel MD : 1965 Ordering M.Swati.: Raman Malcolm MD R1 Age/Sex: 59/M Location: [facility] Unit #: [id number] Status: REG ER Admit Diagnosis: CHEST PAIN X1 DAY Radiology #: EXAM DATE: 08/30/2024 EXAMS: CPT CODE: [id number] CHEST PORTABLE 47956 EXAMINATION: XR CHEST 1 VIEW CLINICAL INDICATION: [...] MD; Walker Lui MD Dictated Date/Time: 08/30/2024 (336)Technologist: KARINA PENA, RT(R) Transcribed Date/Time: 08/30/2024 (336)Refrigerator Repair Technician: SHANNAN Electronic Signature Date/Time: 08/30/2024 (336)Printed Date/Time: 08/30/2024 (338) BATCH NO: N/A PAGE 1 Signed Report Date:30-Aug-2024 Status:Completed - CT BRAIN W/O CONTRASTResult:[facility] [address] [place]. [address] PHONE #: [phone] FAX #: [phone] PT.NAME: RAMAN BERNAL Attending M.D.: Hayden Mares MDDOB: 1965 Ordering M.D.: Elena Ramos MD R2Age/Sex: 59/M Location: [address] Unit #: [id number] Status: ADM IN Admit Diagnosis: AFIB RVR Radiology #: EXAM DATE: 08/28/2024 EXAMS: CPT CODE: [id number] CT BRAIN W/O CONTRAST 70958 EXAMINATION: CT BRAIN W/O CONTRAST CLINICAL INDICATION: [...] Keyonna Vazquez MD 08/28/2024 01:50 PM EDT PAGE 1 Signed Report (CONTINUED) [facility] [id number] [place]. [address] PHONE #: [phone] FAX #: [phone] PT.NAME: RAMAN BERNAL M.D.: Hayden Mares MDDOB: 1965 Ordering Rasheed: Elena Ramos MD R2Age/Sex: 59/M Location: [address] Unit #: [id number] Status: ADM IN Admit Diagnosis: AFIB RVR Radiology #: EXAM DATE: 08/28/2024 EXAMS: CPT CODE: [id number] CT BRAIN W/O CONTRAST 32730 <Continued> at 1350 Reported and signed by: KEYONNA VAZQUEZ MD CC: Walker Lui MD; Elena Ramos MD Dictated Date/Time: 08/28/2024 (1350)Technologist: KANDIS ALFARO; ... Transcribed Date/Time: 08/28/2024 (1350)Refrigerator Repair Technician: SHANNAN Electronic Signature Date/Time: 08/28/2024 (1350)Printed Date/Time: 08/28/2024 (7243) BATCH NO: N/A PAGE 2 Signed Report Date:28-Aug-2024 Status:Completed CHEST PORTABLEResult:[facility] [address] [place]. [address] PHONE #: [phone] FAX #: [phone] PT.NAME: RAMAN BERNAL M.D.: Isabella Mackay MD : 1965 Ordering MJohnson.: Bill Taylor MD Age/Sex: 59/M Location: [facility] Unit #: [id number] Status: ADM IN Admit Diagnosis: AFIB RVR Radiology #: EXAM DATE: 08/25/2024 EXAMS: CPT CODE: [id number] CHEST PORTABLE 82422 PROCEDURE: XR CHEST 1 VIEW CLINICAL INDICATION: [...] CC: Bill Taylor MD Dictated Date/Time: 08/26/2024 (255)Technologist: GOOD Morris Transcribed Date/Time: 08/26/2024 (255)Refrigerator Repair Technician: SHANNAN Electronic Signature Date/Time: 08/26/2024 (025)Printed Date/Time: 08/26/2024 (0258) BATCH NO: N/A PAGE 1 Signed Report Date:26-Aug-2024 Status:Completed - CT ABDOMEN/PELVIS W/ CONTResult:[facility] [address] [place]. [address] PHONE #: [phone] FAX #: [phone] PT.NAME: RAMAN BERNAL Attending Smith.: Bill Taylor MD : 1965 Ordering Rasheed: Bill Taylor MD Age/Sex: 59/M Location: ED Unit #: [id number] Status: REG ER Admit Diagnosis: AFIB RVR Radiology #: EXAM DATE: 08/26/2024 EXAMS: CPT CODE: [id number] CT ABDOMEN/PELVIS W/ CONT 16504 EXAMINATION: CT ABDOMEN PELVIS WITH IV CONTRAST [...] Hepatic steatosis. PAGE 1 Signed Report (CONTINUED) [facility] [address] [place]. [address] PHONE #: [phone] FAX #: [phone] PT.NAME: RAMAN BERNAL Attending Rasheed: Bill Taylor MD : 1965 Ordering MJohnson.: Bill Taylor MD Age/Sex: 59/M Location: .ED Unit #: [id number] Status: REG ER Admit Diagnosis: AFIB RVR Radiology #: EXAM DATE: 08/26/2024 EXAMS: CPT CODE: [id number] CT ABDOMEN/PELVIS W/ CONT 71845 <Continued> 3. Distended urinary bladder with enlarged prostate. Correlate with PSA level. Interpreted by: Marylin Mcclure DO I personally have reviewed the imaging as well as the resident's interpretation and agree with the above report. Electronically signed by: Mireille Martinez MD 08/26/2024 02:04 AM EDT RP at 0204 Reported and signed by: MIREILLE MARTINEZ MD CC: Bill Taylor MD Dictated Date/Time: 08/26/2024 (0204)Technologist: RT KAT (Riky) Transcribed Date/Time: 08/26/2024 (020)Refrigerator Repair Technician: SHANNAN Electronic Signature Date/Time: 08/26/2024 (0204)Printed Date/Time: 08/26/2024 (0207) BATCH NO: N/A PAGE 2 Signed Report Date:26-Aug-2024 Status:Completed - CT CTA CHEST W/ CONTRASTResult:[facility] [address] [place] [address] PHONE #: [phone] FAX #: [phone] PT.NAME: RAMAN BERNAL Attending Rasheed: Bill Taylor MD : 1965 Ordering MPao: Bill Taylor MD Age/Sex: 59/M Location: ED Unit #: [id number] Status: REG ER Admit Diagnosis: AFIB RVR Radiology #: EXAM DATE: 08/26/2024 EXAMS: CPT CODE: [id number] CT CTA CHEST W/ CONTRAST 42239 EXAMINATION: - CT CHEST ANGIOGRAPHY WITH IV [...] AM EDT PAGE 1 Signed Report (CONTINUED) [facility] [address] [place] [address] PHONE #: [phone] FAX #: [phone] PT.NAME: RAMAN BERNAL M.D.: Bill Taylor MD : 1965 Sherman Mtz.: Bill Taylor MD Age/Sex: 59/M Location: [facility] Unit #: [id number] Status: REG ER Admit Diagnosis: AFIB RVR Radiology #: EXAM DATE: 08/26/2024 EXAMS: CPT CODE: [id number] CT CTA CHEST W/ CONTRAST 27493 <Continued> at 0157 Reported and signed by: MIREILLE MARTINEZ MD CC: Bill Taylor MD Dictated Date/Time: 08/26/2024 (015)Technologist: RT KAT (R) Transcribed Date/Time: 08/26/2024 (156)Refrigerator Repair Technician: SHANNAN Electronic Signature Date/Time: 08/26/2024 (156)Printed Date/Time: 08/26/2024 (015) BATCH NO: N/A PAGE 2 Signed Report Date:26-Aug-2024 Status:Completed CT HEAD/BRAIN W/O CONTResult:Patient Name: RAMAN BERNAL Unit No: [id number] EXAMS: CPT CODE: [id number] CT HEAD/BRAIN W/O CONT 34619 Reason: headache CT head without contrast 07/07/2024 CLINICAL HISTORY: headache; [id number] TECHNIQUE: Axial noncontrast CT images through the [...] Arizmendi CT; Roseanne Call CT Trscrpt Dt/ (1446)[email or web address] Orig Print D/T: S: 07/07/2024 (1448) CTDI: DLP: [facility] NAME: RAMAN BERNAL [address] PHYS: PEPDA. [place] [address] : 1965 AGE: 59 SEX: M LOC: S[facility]AS PHONE #: [phone] EXAM DATE: 07/07/2024 STATUS: REG ER FAX #: RAD NO: DC Dt: PAGE 1 Signed Report Date:07-Jul-2024 Status:Completed XR CHEST 1 VResult:Patient Name: RAMAN BERNAL Unit No: [id number] EXAMS: CPT CODE: [id number] XR CHEST 1 V 73171 Reason: cough Chest one view AP 07/07/2024 [...] MD CC: Walker Lui DO Technologist: Roseanne QUINTERO Trscrpt Dt/ (1341)[email or web address] Orig Print D/T: S: 07/07/2024 (1343) [facility] NAME: RAMAN BERNAL [address] PHYS: PEPDA. [place] [address] : 1965 AGE: 59 SEX: M LOC: D.NER PHONE #: [phone] EXAM DATE: 07/07/2024 STATUS: REG ER FAX #: RAD NO: DC Dt: PAGE 1 Signed Report Date:07-Jul-2024 Status:Completed XR CHEST 1 VResult:Patient Name: RAMAN BERNAL Unit No: [id number] EXAMS: CPT CODE: [id number] XR CHEST 1 V 20296 Reason: pain EXAM DESCRIPTION: XR CHEST 1 [...] by: Yuri Sandhu MD 04/18/2024 11:41 PM FENCE LABORER Workstation: [id number]-[id number] at 2341 Reported and signed by: Yuri Sandhu MD CC: [employer] Banegas DO; Walker Lui DO Technologist: Roseanne Call CT Trscrpt Dt/ (2341)C.JAR1 Orig Print D/T: S: 04/18/2024 (2343) [facility] NAME: RAMAN BERNAL [address] PHYS: BOUDA. [place] [address] : 1965 AGE: 58 SEX: M LOC: D.NER PHONE #: [phone] EXAM DATE: 04/18/2024 STATUS: PRE ER FAX #: RAD NO: DC Dt: PAGE 1 Signed Report Date:18-Apr-2024 Status:Completed - MRI MRCP WO CONResult:Patient Name: RAMAN BERNAL Unit No: [id number] EXAMS: CPT CODE: [id number] MRI MRCP WO CON 21386 Reason: abdominal pain, bilirubin 10 EXAM: MR [...] 02/10/2024 FINDINGS: Limitations: Motion artifact and poor asbyyc-ee-hqzox ratio limits the evaluation. Lower Chest: Not [...] by: Bashir Cedeño MD 02/14/2024 07:44 AM FENCE LABORER at 0744 Reported and signed by: Bashir Cedeño MD CC: Walker Lui DO; Lakeisha Kaur DO Technologist: Reno Abebe MRI Trscrpt Dt/ (0744)[email or web address] Orig Print D/T: S: 02/14/2024 (0746) [facility] NAME: RAMAN BERNAL PHYS: [place] [address] : 1965 AGE: 58 SEX: M LOC: D.D256 1 PHONE #: [phone] EXAM DATE: 02/13/2024 STATUS: ADM IN FAX #: RAD NO: DC Dt: PAGE 1 Signed Report Date:14-Feb-2024 Status:Completed DUP AB/PEL/SC COMPResult:Patient Name: RAMAN BERNAL Unit No: [id number] EXAMS: CPT CODE: [id number] DUP AB/PEL/SC COMP 61745 STUDY: US ABDOMEN LIMITED, US ABDOMEN DOPPLER [...] by: Mauricio Ascencio MD 02/12/2024 11:43 AM [facility] at 1143 Reported and signed by: Mauricio Ascencio MD CC: Walker Lui DO; Lakeisha Kaur DO Technologist: US Shubham Trnsuman D/ (1143) Orig Print D/T: S: 02/12/2024 (1145) Probe: [facility] NAME: RAMAN BERNAL [address] PHYS: SANCHLakeisha Silva [facility] [place] [address] : 1965 AGE: 58 SEX: M [facility] [id number] LOC: D.D256 1 PHONE #: [phone] EXAM DATE: 02/12/2024 STATUS: ADM IN FAX #: PRISCILA NO: Page 1 Signed Report Date:12-Feb-2024 Status:Completed US ABDOMEN LTDResult:Patient Name: RAMAN BERNAL Unit No: [id number] EXAMS: CPT CODE: [id number] US ABDOMEN LTD 89256 STUDY: US ABDOMEN LIMITED, US ABDOMEN DOPPLER [...] by: Mauricio Ascencio MD 02/12/2024 11:43 AM FENCE LABORER at 1143 Reported and signed by: Mauricio Ascencio MD CC: Walker Lui DO; Lakeisha Kaur DO Technologist: US Shubham Trnscrbd D/ (0514) Orig Print D/T: S: 02/12/2024 (6095) Probe: [facility] NAME: RAMAN BERNAL [address] PHYS: [place] [address] : 1965 AGE: 58 SEX: M LOC: D.D256 1 PHONE #: [phone] EXAM DATE: 02/12/2024 STATUS: ADM IN FAX #: RAD NO: Page 1 Signed Report Date:12-Feb-2024 Status:Completed XR CHEST 1 VResult:Patient Name: RAMAN BERNAL Unit No: [id number] EXAMS: CPT CODE: [id number] XR CHEST 1 V 24301 Reason: cp EXAMINATION: XR CHEST 1 VIEW [...] No acute cardiopulmonary findings. Electronically signed by: Corye Mcmahan DO 02/11/2024 08:35 PM FENCE LABORER at 2034 Reported and signed by: COREY MCMAHAN MD CC: Walker Lui DO; Keyonna Briceño DO Technologist: Janet QUINTERO Trscrpt Dt/ (2034) Orig Print D/T: S: 02/11/2024 (2036) [facility] NAME: RAMAN BERNAL [address] PHYS: [place] [address] : 1965 AGE: 58 SEX: M LOC: NadiaNER PHONE #: [phone] EXAM DATE: 02/11/2024 STATUS: PRE ER FAX #: RAD NO: DC Dt: PAGE 1 Signed Report Date:11-Feb-2024 Status:Completed CT ABD&PELVIS W/CONTResult:Patient Name: RAMAN BERNAL Unit No: [id number] EXAMS: CPT CODE: [id number] CT ABD PELVIS W/CONT 56097 Reason: abd LFTs bili EXAM DESCRIPTION: CT [...] by: Josue Meredith MD 02/10/2024 04:01 PM [facility] at 1601 Reported and signed by: Josue Meredith MD [facility] NAME: RAMAN BERNAL [address] [facility] PHYS: [place] [address] : 1965 AGE: 58 SEX: M LOC: DElaNER PHONE #: [phone] EXAM DATE: 02/10/2024 STATUS: REG ER FAX #: RAD NO: DC Dt: PAGE 1 Signed Report (CONTINUED) Patient Name: RAMAN BERNAL Unit No: [id number] EXAMS: CPT CODE: [id number] CT ABD PELVIS W/CONT 11178 <Continued> Reason: abd LFTs bili CC: Walker Lui DO; Kartik Clemente MD Technologist: Janet Silva CT; LEON Addison Trscrpt Dt/ (1601)DR.PREEU Ye Print D/T: S: 02/10/2024 (1603) CTDI: DLP: [facility] NAME: RAMAN BERNAL [address] [facility] PHYS: [place] [address] : 1965 AGE: 58 SEX: M LOC: DElaNER PHONE #: [phone] EXAM DATE: 02/10/2024 STATUS: REG ER FAX #: RAD NO: DC Dt: PAGE 2 Signed Report Date:10-Feb-2024 Status:Completed XR CHEST 1 VResult:Patient Name: RAMAN BERNAL Unit No: [id number] EXAMS: CPT CODE: [id number] XR CHEST 1 V 86294 Reason: altered mental status EXAMINATION: XR CHEST [...] by: Omer Salmon MD 02/10/2024 01:53 PM [facility] at 1353 Reported and signed by: Omer Salmon MD CC: Walker Lui DO; Kartik Clemente MD Technologist: LEON Addison Trscrpt Dt/ (1353)[place] Orig Print D/T: S: 02/10/2024 (4545) [facility] NAME: RAMAN BERNAL [address] PHYS: [place] [address] : 1965 AGE: 58 SEX: M LOC: [facility] PHONE #: [phone] EXAM DATE: 02/10/2024 STATUS: PRE ER FAX #: RAD NO: DC Dt: PAGE 1 Signed Report Date:10-Feb-2024 Status:Completed XR CHEST 1 VResult:Patient Name: RAMAN BERNAL Unit No: [id number] EXAMS: CPT CODE: [id number] XR CHEST 1 V 83357 Reason: chest pain STUDY: XR CHEST 1 [...] by: Mauricio Ascencio MD 01/21/2024 04:00 PM [facility] at 1600 Reported and signed by: Mauricio Ascencio MD CC: Walker Lui DO; Mellissa Kahn DO Technologist: Roseanne Call CT Trscrpt Dt/ (1600) Orig Print D/T: S: 01/21/2024 (1602) [facility] NAME: RAMAN BERNAL [address] PHYS: [place] [address] : 1965 AGE: 58 SEX: M LOC: [facility]ILAS PHONE #: [phone] EXAM DATE: 01/21/2024 STATUS: REG ER FAX [...] ments:KAVITA Notified 12-Sep-2024 07:19 GLUCOSE POINT OF JEHJ282fb/dL(High) Range:70mg/dL-110mg/dL GLUCOSE POINT OF CARE Ordered On:12-Sep-2024 Com ments:KAVITA Notified 12-Sep-2024 05:38 GLUCOSE POINT OF XWPX313eu/dL(High) Range:70mg/dL-110mg/dL COMPREHENSIVE METABOLIC PANEL Ordered On:12-Sep-2024 05:35 ALBUMIN/GLOBULIN RATIO1.5(Normal) Range:0.7-3.6 ALBUMIN3.7g/dL(Normal) Range:3.2 g/dL-4.8g/dL ALKALINE PHOSPHATASE KYHVQ383N/L(Normal) Range:46U/L-116U/L SGPT/ALT40U/L(Normal) Range:10U/ L-49U/L Comments:VENIPUNCTURE SHOULD OCCUR PRIOR TO SULFASALAZINE AND/ORSULFAPYRIDINE ADMINISTRATION DUE TO THE POTENTIAL FORFALSELY DEPRESSED RESULTS. SGOT/AST41U/L(High) Range:0U/L-3 4U/L Comments:VENIPUNCTURE SHOULD OCCUR PRIOR TO SULFASALAZINE AND/ORSULFAPYRIDINE ADMINISTRATION DUE TO THE POTENTIAL FORFALSELY DEPRESSED RESULTS. BILIRUBIN TOTAL0.8mg/dL(Normal) Range:0.3mg/dL-1.2mg/dL Comments:FOR PATIENTS ON ELTROMBOPAG THERAPY, THE USE OF SIEMENS TBIMETHOD IS NOT RECOMMENDED. BUN/CREATININE RATIO6(Normal) Ra nge:4-33 BLOOD UREA FQTCUQHC0af/dL(Low) R daniel:9mg/dL-23mg/dL CALCIUM8.3mg/dL(Low) Range:8.7mg /dL-10.4mg/dL CDNOBRMP498etan/L(Normal) Range: 98mmol/L-107mmol/L CARBON GUPMEUN39xwpp/L(Normal) R daniel:20mmol/L-31mmol/L CREATININE0.9mg/dL(Normal) Range :0.7mg/dL-1.3mg/dL ANION MYV53tbhe/L(Normal) Range: 7mmol/L-16mmol/L eGFR> 90 Range:90-0 Comments:The eGFR is calculated using the 2020 CKD-EPI Cr equation,which includes serum Cr, age, and sex but does not include arace coefficient. The [employer] Kid[employer] recommendsthis formula for calculating eGFR in adults. GFR will notcalculate if sex is unknown or patient age is <18 years.Ref range: >/=90mL/min/1.73m2 GLOBULIN2.4g/dL(Normal) Range:1. 4g/dL-4.8g/dL TBGXKYX360of/dL(High) Range:57mg /dL-106mg/dL POTASSIUM3.8mmol/L(Normal) Range :3.5mmol/L-5.1mmol/L LHDQRN708telk/L(Normal) Range:13 6mmol/L-145mmol/L TOTAL PROTEIN6.1g/dL(Normal) Ran ge:5.7g/dL-8.2g/dL CORRECTED CALCIUM8.5mg/dL(Normal) Range:8.5mg/dL-10.1mg/dL Comments:Calcium corrected for Albumin. PHOSPHORUS Ordered On:12-Sep-2024 05:35 PHOSPHORUS3.2mg/dL(Normal) Ran ge:2.4mg/dL-5.1mg/dL MAGNESIUM Ordered On:12-Sep-2024 05:35 MAGNESIUM1.5mg/dL(Low) Range:1 .6mg/dL-2.6mg/dL CBC Ordered On:12-Sep-2024 05:11 OVLWHFMMHR27.2%(Low) Range:40. 1%-51% VXRZKCCDHY88.0g/dL(Low) Range:13 .7g/dL-17.5g/dL MEAN CELL HGB32.6pg(High) Range: 25.7pg-32.2pg MEAN CELL HGB VTNAAQBNMVIZE74.0g/dL(Normal) Range:32.3g/dL-36.5g/dL MEAN CELL ZXLNQQ22.7fL(High) Ran ge:79fL-92.2fL PLATELET RQXRF52247*3/uL(Normal) Range:67518*3/uL-92893*3/uL RED BLOOD CELL3.9910*6/uL(Low) R daniel:4.6310*6/uL-6.0810*6/uL RED CELL DISTRIBUTIO N WIDTH14.9%(High) Range:11.6%-14.4% WHITE BLOOD CELL5.410*3/uL(Normal) Range:410*3/uL-10.510*3/uL GLUCOSE POINT OF CARE Ordered On:11-Sep-2024 Com ments:RN Notified 11-Sep-2024 20:17 GLUCOSE POINT OF XYVK986jv/dL(High) Range:70mg/dL-110mg/dL C-REACTIVE PROTEIN Ordered On:11-Sep-2024 19:12 C REACTIVE PROTEIN< 0.5mg/dL(Normal) Range:0mg/dL-0.5mg/dL SEDIMENTATION RATE Ordered On:11-Sep-2024 19:21 SEDIMENTATION YORU0ai/h(Normal) Range:0mm/h-20mm/h GLUCOSE POINT OF CARE Ordered On:11-Sep-2024 Com ments:RN NotifiedCleaned Meter 11-Sep-2024 15:34 GLUCOSE POINT OF FAQB321ny/dL(High) Range:70mg/dL-110mg/dL GLUCOSE POINT OF CARE Ordered On:11-Sep-2024 Com ments:RN NotifiedCleaned Meter 11-Sep-2024 12:18 GLUCOSE POINT OF TSEM315tb/dL(High) Range:70mg/dL-110mg/dL TROPI HIGH SENSITIVITY Ordered On:11-Sep-2024 07:01 TROPI HIGH SBBWNGSZGAL86uq/L(Normal) Range:0-54ng/L ALCOHOL (ETHANOL) BLOOD Ordered On:11-Sep-2024 07:01 ALCOHOL (ETHANOL) BBOYV953ey/dL Comments:EXPECTED VALUES: UP TO 10 mg/dL MAY [...] OR EQUAL TO 300 ng/mLBASED ON [facility] RECOMMENDATIONS FOR SCREENING DRUGS IN HUMANURINE. RESULTS TO BE USED FOR MEDICAL PURPOSES ONLY. UR OPIATESNEGATIVE Range:NEGATIV E Comments:QUALITATIVE PROCEDURE ONLYCUTOFF CONCENTRATION - GREATER THAN OR EQUAL TO 300 ng/mLBASED ON [facility] RECOMMENDATIONS FOR SCREENING DRUGS IN HUMANURINE. RESULTS [...] OR EQUAL TO 50 ng/mLBASED ON [facility] RECOMMENDATIONS FOR SCREENING DRUGS IN HUMANURINE. RESULTS TO BE USED FOR MEDICAL PURPOSES ONLY. B TYPE NATRIURETIC PEPTIDE Ordered On:11-Sep-2024 05:47 B TYPE NATRIURETIC DTKLDLZ990.5pg/mL(High) Range:0pg/mL-100pg/mL Comments:BNP is a neurohormone secreted mainly [...] CBC WITH DIFFERENTIAL Ordered On:11-Sep-2024 05:33 PLATELET UIGIC99265*3/uL(Normal) Range:03816*3/uL-14870*3/uL RED CELL DISTRIBUTIO N WIDTH14.9%(High) Range:11.6%-14.4% MONOCYTE %11.9%(Normal) Range:5. 3%-12.2% MEAN PLATELET OJNIIJ04.0fL(Normal) Range:9.4fL-12.4fL NEUTROPHIL #2.4510*3/uL(Normal) Range:1.7810*3/uL-5.3810*3/uL LYMPHOCYTE %35.8%(Normal) Range: 21.8%-53.1% EOSINOPHIL %2.6%(Normal) Range:0 .8%-7% MONOCYTE #0.6010*3/uL(Normal) Ra nge:0.310*3/uL-0.8210*3/uL NUCLEATED RED BLOOD CELL %0.0%(Normal) Range:0%-0.2% DBVRVDJZQG16.8%(Low) Range:40.1% -51% MEAN CELL CYODEK36.5fL(High) Ran ge:79fL-92.2fL RED BLOOD CELL4.0210*6/uL(Low) R daniel:4.6310*6/uL-6.0810*6/uL BASOPHIL #0.0510*3/uL(Normal) Ra nge:0.0110*3/uL-0.0810*3/uL EOSINOPHIL #0.1310*3/uL(Normal) Range:0.0410*3/uL-0.5410*3/uL MEAN CELL HGB ARVKXXAEGUCTH92.0g/dL(Normal) Range:32.3g/dL-36.5g/dL LYMPHOCYTE #1.8110*3/uL(Normal) Range:1.3210*3/uL-3.5710*3/uL EHYWMJXWZC18.2g/dL(Low) Range:13 .7g/dL-17.5g/dL BASOPHIL %1.0%(Normal) Range:0.2 %-1.2% WHITE BLOOD CELL5.110*3/uL(Normal) Range:410*3/uL-10.510*3/uL NUCLEATED RED BLOOD CELL #0.0010*3/uL(Normal) Range:010*3/uL-0.1810*3/uL IMMATURE GRANULOCYTE S %0.2%(Normal) Range:0%-0.4% MEAN CELL HGB32.8pg(High) Range: 25.7pg-32.2pg IMMATURE GRANULOCYTE S #0.0110*3/uL(Normal) Range:010*3/uL-0.0310*3/uL NEUTROPHIL %48.5%(Normal) Range: 34%-67.9% COMPREHENSIVE METABOLIC PANEL Ordered On:11-Sep-2024 09:44 ALBUMIN/GLOBULIN RATIO1.6(Normal) Range:0.7-3.6 ALBUMIN4.1g/dL(Normal) Range:3.2 g/dL-4.8g/dL ALKALINE PHOSPHATASE VKQUL579L/L(High) Range:46U/L-116U/L SGPT/ALT52U/L(High) Range:10U/L- 49U/L Comments:VENIPUNCTURE SHOULD OCCUR PRIOR TO SULFASALAZINE AND/ORSULFAPYRIDINE ADMINISTRATION DUE TO THE POTENTIAL FORFALSELY DEPRESSED RESULTS. SGOT/AST49U/L(High) Range:0U/L-3 4U/L Comments:VENIPUNCTURE SHOULD OCCUR PRIOR TO SULFASALAZINE AND/ORSULFAPYRIDINE ADMINISTRATION DUE TO THE POTENTIAL FORFALSELY DEPRESSED RESULTS. BILIRUBIN TOTAL0.4mg/dL(Normal) Range:0.3mg/dL-1.2mg/dL Comments:FOR PATIENTS ON ELTROMBOPAG THERAPY, THE USE OF SIEMENS TBIMETHOD IS NOT RECOMMENDED. BUN/CREATININE RATIO6(Normal) Ra nge:4-33 BLOOD UREA OJLXBIKD5uu/dL(Low) R daniel:9mg/dL-23mg/dL CALCIUM8.4mg/dL(Low) Range:8.7mg /dL-10.4mg/dL RSXFRRWG142srnf/L(High) Range:98 mmol/L-107mmol/L [place] NSSKCJM26chkk/L(Normal) R daniel:20mmol/L-31mmol/L CREATININE1.1mg/dL(Normal) Range :0.7mg/dL-1.3mg/dL ANION HUW92rdjg/L(Normal) Range: 7mmol/L-16mmol/L eGFR76.9(Low) Range:90-0 Comments:The eGFR is calculated using the 2020 CKD-EPI Cr equation,which includes serum Cr, age, and sex but does not include arace coefficient. The National Kidney Foundation recommendsthis formula for calculating eGFR in adults. GFR will notcalculate if sex is unknown or patient age is <18 years.Ref range: >/=90mL/min/1.73m2 GLOBULIN2.5g/dL(Normal) Range:1. 4g/dL-4.8g/dL YYAOSTL702er/dL(High) Range:57mg /dL-106mg/dL POTASSIUM3.3mmol/L(Low) Range:3. 5mmol/L-5.1mmol/L LTAVAF417yyba/L(Normal) Range:13 6mmol/L-145mmol/L TOTAL PROTEIN6.6g/dL(Normal) Ran ge:5.7g/dL-8.2g/dL CORRECTED CALCIUM8.3mg/dL(Low) R daniel:8.5mg/dL-10.1mg/dL Comments:Calcium corrected for Albumin. TROPI HIGH SENSITIVITY Ordered On:11-Sep-2024 09:44 TROPI HIGH RPEUFWXRAGJ61bb/L(Normal) Range:0-54ng/L ALCOHOL (ETHANOL) BLOOD Ordered On:11-Sep-2024 05:45 ALCOHOL (ETHANOL) ERWQE696gw/dL Comments:EXPECTED VALUES: UP TO 10 mg/dL MAY [...] ments:RN Notified 11-Sep-2024 04:45 GLUCOSE POINT OF RMFD328gd/dL(High) Range:70mg/dL-110mg/dL GLUCOSE POINT OF CARE Ordered On:10-Sep-2024 Com ments:RN Notified 10-Sep-2024 11:29 GLUCOSE POINT OF WOLN751yr/dL(High) Range:70mg/dL-110mg/dL GLUCOSE POINT OF CARE Ordered On:10-Sep-2024 Com ments:RN Notified 10-Sep-2024 06:04 GLUCOSE POINT OF NUJI203fs/dL(High) Range:70mg/dL-110mg/dL CBC WITH DIFFERENTIAL Ordered On:10-Sep-2024 04:20 BASOPHIL #0.0610*3/uL(Normal) Range:0.0110*3/uL-0.0810*3/uL BASOPHIL %1.2%(Normal) Range:0.2 %-1.2% EOSINOPHIL #0.2010*3/uL(Normal) Range:0.0410*3/uL-0.5410*3/uL EOSINOPHIL %4.1%(Normal) Range:0 .8%-7% FRCVENBASJ32.3%(Low) Range:40.1% -51% YEWBUYFQKS40.5g/dL(Low) Range:13 .7g/dL-17.5g/dL IMMATURE GRANULOCYTE S #0.0110*3/uL(Normal) Range:010*3/uL-0.0310*3/uL IMMATURE GRANULOCYTE S %0.2%(Normal) Range:0%-0.4% LYMPHOCYTE #1.9910*3/uL(Normal) Range:1.3210*3/uL-3.5710*3/uL LYMPHOCYTE %41.3%(Normal) Range: 21.8%-53.1% MEAN CELL HGB32.5pg(High) Range: 25.7pg-32.2pg MEAN CELL HGB LHOKUCRFSPREQ98.5g/dL(Normal) Range:32.3g/dL-36.5g/dL MEAN CELL YLQCQL21.9fL(High) Ran ge:79fL-92.2fL MONOCYTE #0.4710*3/uL(Normal) Ra nge:0.310*3/uL-0.8210*3/uL MONOCYTE %9.8%(Normal) Range:5.3 %-12.2% MEAN PLATELET VOLUME9.8fL(Normal) Range:9.4fL-12.4fL NEUTROPHIL #2.0910*3/uL(Normal) Range:1.7810*3/uL-5.3810*3/uL NEUTROPHIL %43.4%(Normal) Range: 34%-67.9% NUCLEATED RED BLOOD CELL #0.0010*3/uL(Normal) Range:010*3/uL-0.1810*3/uL NUCLEATED RED BLOOD CELL %0.0%(Normal) Range:0%-0.2% PLATELET ZRRYO61423*3/uL(Normal) Range:80169*3/uL-64187*3/uL RED BLOOD CELL3.5410*6/uL(Low) R daniel:4.6310*6/uL-6.0810*6/uL RED CELL DISTRIBUTIO N WIDTH15.1%(High) Range:11.6%-14.4% WHITE BLOOD CELL4.810*3/uL(Normal) Range:410*3/uL-10.510*3/uL COMPREHENSIVE METABOLIC PANEL Ordered On:10-Sep-2024 04:36 ALBUMIN/GLOBULIN RATIO1.5(Normal) Range:0.7-3.6 ALBUMIN3.2g/dL(Normal) Range:3.2 g/dL-4.8g/dL ALKALINE PHOSPHATASE OJOPY984E/L(Normal) Range:46U/L-116U/L SGPT/ALT50U/L(High) Range:10U/L- 49U/L Comments:VENIPUNCTURE SHOULD OCCUR PRIOR TO SULFASALAZINE AND/ORSULFAPYRIDINE ADMINISTRATION DUE TO THE POTENTIAL FORFALSELY DEPRESSED RESULTS. SGOT/AST52U/L(High) Range:0U/L-3 4U/L Comments:VENIPUNCTURE SHOULD OCCUR PRIOR TO SULFASALAZINE AND/ORSULFAPYRIDINE ADMINISTRATION DUE TO THE POTENTIAL FORFALSELY DEPRESSED RESULTS. BILIRUBIN TOTAL0.3mg/dL(Normal) Range:0.3mg/dL-1.2mg/dL Comments:FOR PATIENTS ON ELTROMBOPAG THERAPY, THE USE OF SIEMENS TBIMETHOD IS NOT RECOMMENDED. BUN/CREATININE RATIO10(Normal) R daniel:4-33 BLOOD UREA IYPLPTLX0lf/dL(Low) R daniel:9mg/dL-23mg/dL CALCIUM7.7mg/dL(Low) Range:8.7mg /dL-10.4mg/dL XDPXCXOE225ovse/L(High) Range:98 mmol/L-107mmol/L [place] XACQCBT06kofk/L(Normal) R daniel:20mmol/L-31mmol/L CREATININE0.8mg/dL(Normal) Range :0.7mg/dL-1.3mg/dL ANION BBD09sbqc/L(Normal) Range: 7mmol/L-16mmol/L eGFR> 90 Range:90-0 Comments:The eGFR is calculated using the 2020 CKD-EPI Cr equation,which includes serum Cr, age, and sex but does not include arace coefficient. The National Kidney Foundation recommendsthis formula for calculating eGFR in adults. GFR will notcalculate if sex is unknown or patient age is <18 years.Ref range: >/=90mL/min/1.73m2 GLOBULIN2.1g/dL(Normal) Range:1. 4g/dL-4.8g/dL GDFIZSI647sk/dL(High) Range:57mg /dL-106mg/dL POTASSIUM3.5mmol/L(Normal) Range :3.5mmol/L-5.1mmol/L MVKIEA937heqs/L(Normal) Range:13 6mmol/L-145mmol/L TOTAL PROTEIN5.3g/dL(Low) Range: 5.7g/dL-8.2g/dL CORRECTED CALCIUM8.3mg/dL(Low) R daniel:8.5mg/dL-10.1mg/dL Comments:Calcium corrected for Albumin. PHOSPHORUS Ordered On:10-Sep-2024 04:36 PHOSPHORUS2.5mg/dL(Normal) Ran ge:2.4mg/dL-5.1mg/dL MAGNESIUM Ordered On:10-Sep-2024 04:36 MAGNESIUM1.8mg/dL(Normal) Rang e:1.6mg/dL-2.6mg/dL TROPI HIGH SENSITIVITY Ordered On:09-Sep-2024 20:23 TROPI HIGH XBWJMLMAIEQ30uw/L(Normal) Range:0-54ng/L GLUCOSE POINT OF CARE Ordered On:09-Sep-2024 Com ments:RN Notified 09-Sep-2024 19:32 GLUCOSE POINT OF OGCG836gy/dL(High) Range:70mg/dL-110mg/dL INFLUENZA A B AG SCREEN Ordered On:09-Sep-2024 16:26 INFLUENZA A AGNEGATIVE Range:N EGATIVE INFLUENZA B AGNEGATIVE Range:NEG ATIVE CBC WITH DIFFERENTIAL Ordered On:09-Sep-2024 16:05 BASOPHIL #0.0410*3/uL(Normal) Range:0.0110*3/uL-0.0810*3/uL BASOPHIL %0.7%(Normal) Range:0.2 %-1.2% EOSINOPHIL #0.1610*3/uL(Normal) Range:0.0410*3/uL-0.5410*3/uL EOSINOPHIL %2.8%(Normal) Range:0 .8%-7% YKPMDXJHTI21.7%(Low) Range:40.1% -51% BCHDDYREVH63.4g/dL(Low) Range:13 .7g/dL-17.5g/dL IMMATURE GRANULOCYTE S #0.0210*3/uL(Normal) Range:010*3/uL-0.0310*3/uL IMMATURE GRANULOCYTE S %0.3%(Normal) Range:0%-0.4% LYMPHOCYTE #2.3210*3/uL(Normal) Range:1.3210*3/uL-3.5710*3/uL LYMPHOCYTE %39.9%(Normal) Range: 21.8%-53.1% MEAN CELL HGB32.5pg(High) Range: 25.7pg-32.2pg MEAN CELL HGB XHKCDYHTSGYZV57.8g/dL(Normal) Range:32.3g/dL-36.5g/dL MEAN CELL IBHUXC34.1fL(High) Ran ge:79fL-92.2fL MONOCYTE #0.3410*3/uL(Normal) Ra nge:0.310*3/uL-0.8210*3/uL MONOCYTE %5.9%(Normal) Range:5.3 %-12.2% MEAN PLATELET VOLUME9.4fL(Normal) Range:9.4fL-12.4fL NEUTROPHIL #2.9310*3/uL(Normal) Range:1.7810*3/uL-5.3810*3/uL NEUTROPHIL %50.4%(Normal) Range: 34%-67.9% NUCLEATED RED BLOOD CELL #0.0010*3/uL(Normal) Range:010*3/uL-0.1810*3/uL NUCLEATED RED BLOOD CELL %0.0%(Normal) Range:0%-0.2% PLATELET QUOJN38209*3/uL(Normal) Range:12814*3/uL-62609*3/uL RED BLOOD CELL3.8210*6/uL(Low) R daniel:4.6310*6/uL-6.0810*6/uL RED CELL [...] only for the detection of nucleic acid uvegPPPX-ZcE-2.Assay Methodology:Isothermal nucleic acid amplification technology COMPREHENSIVE METABOLIC PANEL Ordered On:09-Sep-2024 17:18 ALBUMIN/GLOBULIN RATIO1.6(Normal) Range:0.7-3.6 ALBUMIN3.7g/dL(Normal) Range:3.2 g/dL-4.8g/dL ALKALINE PHOSPHATASE DKOUI271K/L(High) Range:46U/L-116U/L SGPT/ALT59U/L(High) Range:10U/L- 49U/L Comments:VENIPUNCTURE SHOULD OCCUR PRIOR TO SULFASALAZINE AND/ORSULFAPYRIDINE ADMINISTRATION DUE TO THE POTENTIAL FORFALSELY DEPRESSED RESULTS. SGOT/AST64U/L(High) Range:0U/L-3 4U/L Comments:VENIPUNCTURE SHOULD OCCUR PRIOR TO SULFASALAZINE AND/ORSULFAPYRIDINE ADMINISTRATION DUE TO THE POTENTIAL FORFALSELY DEPRESSED RESULTS. BILIRUBIN TOTAL0.2mg/dL(Low) Ran ge:0.3mg/dL-1.2mg/dL Comments:FOR PATIENTS ON ELTROMBOPAG THERAPY, THE USE OF SIEMENS TBIMETHOD IS NOT RECOMMENDED. BUN/CREATININE RATIO6(Normal) Ra nge:4-33 BLOOD UREA MQKOTZSZ9gs/dL(Low) R daniel:9mg/dL-23mg/dL CALCIUM7.8mg/dL(Low) Range:8.7mg /dL-10.4mg/dL NIBNVOCW106rjft/L(High) Range:98 mmol/L-107mmol/L [place] XUEFBAS05aaem/L(Normal) R daniel:20mmol/L-31mmol/L CREATININE0.9mg/dL(Normal) Range :0.7mg/dL-1.3mg/dL ANION KHU32rdba/L(Normal) Range: 7mmol/L-16mmol/L eGFR> 90 Range:90-0 Comments:The eGFR is calculated using the 2020 CKD-EPI Cr equation,which includes serum Cr, age, and sex but does not include arace coefficient. The National Kidney Foundation recommendsthis formula for calculating eGFR in adults. GFR will notcalculate if sex is unknown or patient age is <18 years.Ref range: >/=90mL/min/1.73m2 GLOBULIN2.3g/dL(Normal) Range:1. 4g/dL-4.8g/dL WAPTURZ214gs/dL(High) Range:57mg /dL-106mg/dL POTASSIUM3.8mmol/L(Normal) Range :3.5mmol/L-5.1mmol/L VSQZUO785xxsp/L(Normal) Range:13 6mmol/L-145mmol/L TOTAL PROTEIN6.0g/dL(Normal) Ran ge:5.7g/dL-8.2g/dL CORRECTED CALCIUM8.0mg/dL(Low) R daniel:8.5mg/dL-10.1mg/dL Comments:Calcium corrected for Albumin. LIPASE Ordered On:09-Sep-2024 17:18 FSSAPC24Z/L(Normal) Range:12U/ L-53U/L TROPI HIGH SENSITIVITY Ordered On:09-Sep-2024 17:18 TROPI HIGH XJGESFFCKGA95ja/L(Normal) Range:0-54ng/L ALCOHOL (ETHANOL) BLOOD Ordered On:09-Sep-2024 17:18 ALCOHOL (ETHANOL) GLSZW519ai/dL(Critical High) Comments:RESULTS CALLED TO AND READ BACK BY CARMEN SAEED/YEVGENIY 09/09/24 AT 1718 BY: [id number] VALUES: UP TO 10 mg/dL MAY BE OBSERVED DUE TO PRESENCE OF VOLATILE REDUCING SUBSTANCES AND DOES NOT NECESSARILY INDICATE INGESTION OF ETHANOL.RANGE: < 10 mg/dL IS INCONCLUSIVE > 10 mg/dL INDICATES ETHANOL INGESTIONTOXIC: > 150 mg/dL FLU FOR TANIKA Ordered On:09-Sep-2024 16:44 FLU FOR SOFIAFLU FOR TANIKA B TYPE NATRIURETIC PEPTIDE Ordered On:09-Sep-2024 18:11 B TYPE NATRIURETIC EWUNENY24.8pg/mL(Normal) Range:0pg/mL-100pg/mL Comments:BNP is a neurohormone secreted mainly [...] ments:RN Notified 05-Sep-2024 11:07 GLUCOSE POINT OF PQWW813nu/dL(High) Range:70mg/dL-110mg/dL GLUCOSE POINT OF CARE Ordered On:05-Sep-2024 Com ments:RN Notified 05-Sep-2024 05:53 GLUCOSE POINT OF UYIH15tj/dL(Normal) Range:70mg/dL-110mg/dL WBC REFLEX Ordered On:05-Sep-2024 03:51 WBC REFLEXABNORMAL CBC WITH DIFFERENTIAL Ordered On:05-Sep-2024 03:51 BASOPHIL #0.0410*3/uL(Normal) Range:0.0110*3/uL-0.0810*3/uL BASOPHIL %1.0%(Normal) Range:0.2 %-1.2% EOSINOPHIL #0.1410*3/uL(Normal) Range:0.0410*3/uL-0.5410*3/uL EOSINOPHIL %3.6%(Normal) Range:0 .8%-7% IKJURRMGUF31.7%(Low) Range:40.1% -51% PKIDRXNXOW63.6g/dL(Low) Range:13 .7g/dL-17.5g/dL IMMATURE GRANULOCYTE S #0.0110*3/uL(Normal) Range:010*3/uL-0.0310*3/uL IMMATURE GRANULOCYTE S %0.3%(Normal) Range:0%-0.4% LYMPHOCYTE #1.6210*3/uL(Normal) Range:1.3210*3/uL-3.5710*3/uL LYMPHOCYTE %41.2%(Normal) Range: 21.8%-53.1% MEAN CELL HGB32.6pg(High) Range: 25.7pg-32.2pg MEAN CELL HGB STGHUICJVGGLL07.3g/dL(Normal) Range:32.3g/dL-36.5g/dL MEAN CELL UHKBAB33.8fL(High) Ran ge:79fL-92.2fL MONOCYTE #0.5510*3/uL(Normal) Ra nge:0.310*3/uL-0.8210*3/uL MONOCYTE %14.0%(High) Range:5.3% -12.2% MEAN PLATELET VOLUME9.8fL(Normal) Range:9.4fL-12.4fL NEUTROPHIL #1.5710*3/uL(Low) Ran ge:1.7810*3/uL-5.3810*3/uL NEUTROPHIL %39.9%(Normal) Range: 34%-67.9% NUCLEATED RED BLOOD CELL #0.0010*3/uL(Normal) Range:010*3/uL-0.1810*3/uL NUCLEATED RED BLOOD CELL %0.0%(Normal) Range:0%-0.2% PLATELET NAJVH30716*3/uL(Normal) Range:43334*3/uL-75479*3/uL RED BLOOD CELL3.8710*6/uL(Low) R daniel:4.6310*6/uL-6.0810*6/uL RED CELL DISTRIBUTIO N WIDTH15.5%(High) Range:11.6%-14.4% WHITE BLOOD CELL3.910*3/uL(Low) Range:410*3/uL-10.510*3/uL COMPREHENSIVE METABOLIC PANEL Ordered On:05-Sep-2024 04:10 ALBUMIN/GLOBULIN RATIO1.6(Normal) Range:0.7-3.6 ALBUMIN3.6g/dL(Normal) Range:3.2 g/dL-4.8g/dL ALKALINE PHOSPHATASE NAVHC324M/L(High) Range:46U/L-116U/L SGPT/ALT51U/L(High) Range:10U/L- 49U/L Comments:VENIPUNCTURE SHOULD OCCUR PRIOR TO SULFASALAZINE AND/ORSULFAPYRIDINE ADMINISTRATION DUE TO THE POTENTIAL FORFALSELY DEPRESSED RESULTS. SGOT/AST49U/L(High) Range:0U/L-3 4U/L Comments:VENIPUNCTURE SHOULD OCCUR PRIOR TO SULFASALAZINE AND/ORSULFAPYRIDINE ADMINISTRATION DUE TO THE POTENTIAL FORFALSELY DEPRESSED RESULTS. BILIRUBIN TOTAL0.4mg/dL(Normal) Range:0.3mg/dL-1.2mg/dL Comments:FOR PATIENTS ON ELTROMBOPAG THERAPY, THE USE OF SIEMENS TBIMETHOD IS NOT RECOMMENDED. BUN/CREATININE RATIO12(Normal) R daniel:4-33 BLOOD UREA TSNOIVQG60mf/dL(Normal) Range:9mg/dL-23mg/dL CALCIUM9.0mg/dL(Normal) Range:8. 7mg/dL-10.4mg/dL DCODUXBR501yagy/L(Normal) Range: 98mmol/L-107mmol/L [place] XKHILBD35qsin/L(Normal) R daniel:20mmol/L-31mmol/L CREATININE0.8mg/dL(Normal) Range :0.7mg/dL-1.3mg/dL ANION RAA1tgvm/L(Normal) Range:7 mmol/L-16mmol/L eGFR> 90 Range:90-0 Comments:The eGFR is calculated using the 2020 CKD-EPI Cr equation,which includes serum Cr, age, and sex but does not include arace coefficient. The National Kidney Foundation recommendsthis formula for calculating eGFR in adults. GFR will notcalculate if sex is unknown or patient age is <18 years.Ref range: >/=90mL/min/1.73m2 GLOBULIN2.2g/dL(Normal) Range:1. 4g/dL-4.8g/dL DTCRTMN10pe/dL(Normal) Range:57m g/dL-106mg/dL POTASSIUM3.9mmol/L(Normal) Range :3.5mmol/L-5.1mmol/L YVYHMU795bkzo/L(Normal) Range:13 6mmol/L-145mmol/L TOTAL PROTEIN5.8g/dL(Normal) Ran ge:5.7g/dL-8.2g/dL CORRECTED CALCIUM9.3mg/dL(Normal) Range:8.5mg/dL-10.1mg/dL Comments:Calcium corrected for Albumin. PHOSPHORUS Ordered On:05-Sep-2024 04:10 PHOSPHORUS2.5mg/dL(Normal) Ran ge:2.4mg/dL-5.1mg/dL MAGNESIUM Ordered On:05-Sep-2024 04:10 MAGNESIUM1.6mg/dL(Normal) Rang e:1.6mg/dL-2.6mg/dL GLUCOSE POINT OF CARE Ordered On:05-Sep-2024 Com ments:KAVITA Notified 05-Sep-2024 01:17 GLUCOSE POINT OF TVPW863ze/dL(High) Range:70mg/dL-110mg/dL TROPI HIGH SENSITIVITY Ordered On:04-Sep-2024 22:53 TROPI HIGH BDNNDFVNIHD79ua/L(Normal) Range:0-54ng/L ALCOHOL (ETHANOL) BLOOD Ordered On:04-Sep-2024 23:16 ALCOHOL (ETHANOL) QVSME870ev/dL Comments:EXPECTED VALUES: UP TO 10 mg/dL MAY BE OBSERVED DUE TO PRESENCE OF VOLATILE REDUCING SUBSTANCES AND DOES NOT NECESSARILY INDICATE INGESTION OF ETHANOL.RANGE: < 10 mg/dL IS INCONCLUSIVE > 10 mg/dL INDICATES ETHANOL INGESTIONTOXIC: > 150 mg/dL GLUCOSE POINT OF CARE Ordered On:04-Sep-2024 Com ments:KAVITA NotifiedCleaned Meter 04-Sep-2024 22:36 GLUCOSE POINT OF QYFT733ea/dL(High) Range:70mg/dL-110mg/dL URINALYSIS W/REFLEX CULTURE Ordered On:04-Sep-2024 Comments:Indication [...] THAN OR EQUAL TO 1000 ng/mLBASED ON [facility] RECOMMENDATIONS FOR SCREENING DRUGS IN HUMAURINE. RESULTS [...] OR EQUAL TO 50 ng/mLBASED ON [facility] RECOMMENDATIONS FOR SCREENING DRUGS IN HUMANURINE. RESULTS TO BE USED FOR MEDICAL PURPOSES ONLY. GLUCOSE POINT OF CARE Ordered On:04-Sep-2024 Com ments:RN Notified 05-Sep-2024 04:41 GLUCOSE POINT OF MRRK588eu/dL(High) Range:70mg/dL-110mg/dL CBC WITH DIFFERENTIAL Ordered On:04-Sep-2024 17:02 BASOPHIL #0.0510*3/uL(Normal) Range:0.0110*3/uL-0.0810*3/uL BASOPHIL %1.0%(Normal) Range:0.2 %-1.2% EOSINOPHIL #0.1310*3/uL(Normal) Range:0.0410*3/uL-0.5410*3/uL EOSINOPHIL %2.6%(Normal) Range:0 .8%-7% XRGHHXNEAM32.9%(Low) Range:40.1% -51% AQKYXXTGKJ05.2g/dL(Low) Range:13 .7g/dL-17.5g/dL IMMATURE GRANULOCYTE S #0.0210*3/uL(Normal) Range:010*3/uL-0.0310*3/uL IMMATURE GRANULOCYTE S %0.4%(Normal) Range:0%-0.4% LYMPHOCYTE #2.1410*3/uL(Normal) Range:1.3210*3/uL-3.5710*3/uL LYMPHOCYTE %43.0%(Normal) Range: 21.8%-53.1% MEAN CELL HGB32.2pg(Normal) Rang e:25.7pg-32.2pg MEAN CELL HGB LFVAIMEPAJKDN46.0g/dL(Normal) Range:32.3g/dL-36.5g/dL MEAN CELL IIUIEF22.7fL(High) Ran ge:79fL-92.2fL MONOCYTE #0.7110*3/uL(Normal) Ra nge:0.310*3/uL-0.8210*3/uL MONOCYTE %14.3%(High) Range:5.3% -12.2% MEAN PLATELET NWKAZL23.1fL(Normal) Range:9.4fL-12.4fL NEUTROPHIL #1.9310*3/uL(Normal) Range:1.7810*3/uL-5.3810*3/uL NEUTROPHIL %38.7%(Normal) Range: 34%-67.9% NUCLEATED RED BLOOD CELL #0.0010*3/uL(Normal) Range:010*3/uL-0.1810*3/uL NUCLEATED RED BLOOD CELL %0.0%(Normal) Range:0%-0.2% PLATELET GZBVU82414*3/uL(Normal) Range:89659*3/uL-61067*3/uL RED BLOOD CELL3.7910*6/uL(Low) R daniel:4.6310*6/uL-6.0810*6/uL RED CELL DISTRIBUTIO N WIDTH15.4%(High) Range:11.6%-14.4% WHITE BLOOD CELL5.010*3/uL(Normal) Range:410*3/uL-10.510*3/uL COMPREHENSIVE METABOLIC PANEL Ordered On:04-Sep-2024 17:22 ALBUMIN/GLOBULIN RATIO1.7(Normal) Range:0.7-3.6 ALBUMIN3.8g/dL(Normal) Range:3.2 g/dL-4.8g/dL ALKALINE PHOSPHATASE QJGKI927G/L(High) Range:46U/L-116U/L SGPT/ALT57U/L(High) Range:10U/L- 49U/L Comments:VENIPUNCTURE SHOULD OCCUR PRIOR TO SULFASALAZINE AND/ORSULFAPYRIDINE ADMINISTRATION DUE TO THE POTENTIAL FORFALSELY DEPRESSED RESULTS. SGOT/AST48U/L(High) Range:0U/L-3 4U/L Comments:VENIPUNCTURE SHOULD OCCUR PRIOR TO SULFASALAZINE AND/ORSULFAPYRIDINE ADMINISTRATION DUE TO THE POTENTIAL FORFALSELY DEPRESSED RESULTS. BILIRUBIN TOTAL0.3mg/dL(Normal) Range:0.3mg/dL-1.2mg/dL Comments:FOR PATIENTS ON ELTROMBOPAG THERAPY, THE USE OF SIEMENS TBIMETHOD IS NOT RECOMMENDED. BUN/CREATININE RATIO8(Normal) Ra nge:4-33 BLOOD UREA SBWLMSKJ9et/dL(Normal) Range:9mg/dL-23mg/dL CALCIUM9.2mg/dL(Normal) Range:8. 7mg/dL-10.4mg/dL NCYBJNUM827qtye/L(Normal) Range: 98mmol/L-107mmol/L CARBON AVKTANE63uyeo/L(Normal) R daniel:20mmol/L-31mmol/L CREATININE1.1mg/dL(Normal) Range :0.7mg/dL-1.3mg/dL ANION YCG6ybms/L(Normal) Range:7 mmol/L-16mmol/L eGFR76.9(Low) Range:90-0 Comments:The eGFR is calculated using the 2020 CKD-EPI Cr equation,which includes serum Cr, age, and sex but does not include arace coefficient. The National Kidney Foundation recommendsthis formula for calculating eGFR in adults. GFR will notcalculate if sex is unknown or patient age is <18 years.Ref range: >/=90mL/min/1.73m2 GLOBULIN2.2g/dL(Normal) Range:1. 4g/dL-4.8g/dL JYJOELB102ba/dL(Critical High) R daniel:57mg/dL-106mg/dL Comments:RESULTS CALLED TO AND READ BACK BY STEFANY MOREJON/DIAMOND 09/04/24 AT 1720 BY: IRLMPH POTASSIUM3.3mmol/L(Low) Range:3. 5mmol/L-5.1mmol/L PEFWFS095qycp/L(Low) Range:136mm ol/L-145mmol/L TOTAL PROTEIN6.0g/dL(Normal) Ran ge:5.7g/dL-8.2g/dL CORRECTED CALCIUM9.4mg/dL(Normal) Range:8.5mg/dL-10.1mg/dL Comments:Calcium corrected for Albumin. TROPI HIGH SENSITIVITY Ordered On:04-Sep-2024 17:22 TROPI HIGH FMSKUTZOEQT59fd/L(Normal) Range:0-54ng/L ACETONE QUAL Ordered On:04-Sep-2024 17:22 ACETONE QUALNEGATIVE Range:NEG ATIVE B TYPE NATRIURETIC PEPTIDE Ordered On:04-Sep-2024 17:21 B TYPE NATRIURETIC WUMNVCK45.6pg/mL(Normal) Range:0pg/mL-100pg/mL Comments:BNP is a neurohormone secreted mainly [...] HIGH SENSITIVITY Ordered On:30-Aug-2024 03:40 TROPI HIGH MUWQKICIRVT46mg/L(Normal) Range:0-54ng/L CBC WITH DIFFERENTIAL Ordered On:30-Aug-2024 02:35 BASOPHIL #0.0210*3/uL(Normal) Range:0.0110*3/uL-0.0810*3/uL BASOPHIL %0.5%(Normal) Range:0.2 %-1.2% EOSINOPHIL #0.0810*3/uL(Normal) Range:0.0410*3/uL-0.5410*3/uL EOSINOPHIL %1.8%(Normal) Range:0 .8%-7% THKKKQUYKS04.6%(Low) Range:40.1% -51% AEWDEDVHTA15.0g/dL(Low) Range:13 .7g/dL-17.5g/dL IMMATURE GRANULOCYTE S #0.0310*3/uL(Normal) Range:010*3/uL-0.0310*3/uL IMMATURE GRANULOCYTE S %0.7%(High) Range:0%-0.4% LYMPHOCYTE #1.2010*3/uL(Low) Ran ge:1.3210*3/uL-3.5710*3/uL LYMPHOCYTE %27.7%(Normal) Range: 21.8%-53.1% MEAN CELL HGB32.3pg(High) Range: 25.7pg-32.2pg MEAN CELL HGB CNHXBYUWDJVWI89.7g/dL(Normal) Range:32.3g/dL-36.5g/dL MEAN CELL EGSBAF33.7fL(High) Ran ge:79fL-92.2fL MONOCYTE #0.4810*3/uL(Normal) Ra nge:0.310*3/uL-0.8210*3/uL MONOCYTE %11.1%(Normal) Range:5. 3%-12.2% MEAN PLATELET FBXTQL22.0fL(Normal) Range:9.4fL-12.4fL NEUTROPHIL #2.5210*3/uL(Normal) Range:1.7810*3/uL-5.3810*3/uL NEUTROPHIL %58.2%(Normal) Range: 34%-67.9% NUCLEATED RED BLOOD CELL #0.0010*3/uL(Normal) Range:010*3/uL-0.1810*3/uL NUCLEATED RED BLOOD CELL %0.0%(Normal) Range:0%-0.2% PLATELET XMOOW42005*3/uL(Low) Ra nge:48032*3/uL-88108*3/uL RED BLOOD CELL3.7210*6/uL(Low) R daniel:4.6310*6/uL-6.0810*6/uL RED CELL DISTRIBUTIO N WIDTH14.3%(Normal) Range:11.6%-14.4% WHITE BLOOD CELL4.310*3/uL(Normal) Range:410*3/uL-10.510*3/uL COMPREHENSIVE METABOLIC PANEL Ordered On:30-Aug-2024 02:50 ALBUMIN/GLOBULIN RATIO1.6(Normal) Range:0.7-3.6 ALBUMIN3.5g/dL(Normal) Range:3.2 g/dL-4.8g/dL ALKALINE PHOSPHATASE APFYB652O/L(High) Range:46U/L-116U/L SGPT/ALT93U/L(High) Range:10U/L- 49U/L Comments:VENIPUNCTURE SHOULD OCCUR PRIOR TO SULFASALAZINE AND/ORSULFAPYRIDINE ADMINISTRATION DUE TO THE POTENTIAL FORFALSELY DEPRESSED RESULTS. SGOT/EAH544B/L(High) Range:0U/L- 34U/L Comments:VENIPUNCTURE SHOULD OCCUR PRIOR TO SULFASALAZINE AND/ORSULFAPYRIDINE ADMINISTRATION DUE TO THE POTENTIAL FORFALSELY DEPRESSED RESULTS. BILIRUBIN TOTAL0.5mg/dL(Normal) Range:0.3mg/dL-1.2mg/dL Comments:FOR PATIENTS ON ELTROMBOPAG THERAPY, THE USE OF SIEMENS TBIMETHOD IS NOT RECOMMENDED. BUN/CREATININE RATIO10(Normal) R daniel:4-33 BLOOD UREA PHMMYUQK01et/dL(Normal) Range:9mg/dL-23mg/dL CALCIUM8.1mg/dL(Low) Range:8.7mg /dL-10.4mg/dL WYNQOPEG290jukw/L(High) Range:98 mmol/L-107mmol/L [place] RSINXJI14bdpm/L(Normal) R daniel:20mmol/L-31mmol/L CREATININE1.1mg/dL(Normal) Range :0.7mg/dL-1.3mg/dL ANION PQA5hmwn/L(Normal) Range:7 mmol/L-16mmol/L eGFR76.9(Low) Range:90-0 Comments:The eGFR is calculated using the 2020 CKD-EPI Cr equation,which includes serum Cr, age, and sex but does not include arace coefficient. The National Kidney Foundation recommendsthis formula for calculating eGFR in adults. GFR will notcalculate if sex is unknown or patient age is <18 years.Ref range: >/=90mL/min/1.73m2 GLOBULIN2.2g/dL(Normal) Range:1. 4g/dL-4.8g/dL NLQQXBC239jn/dL(High) Range:57mg /dL-106mg/dL POTASSIUM3.3mmol/L(Low) Range:3. 5mmol/L-5.1mmol/L GHBDGI379hagr/L(Normal) Range:13 6mmol/L-145mmol/L TOTAL PROTEIN5.7g/dL(Normal) Ran ge:5.7g/dL-8.2g/dL CORRECTED CALCIUM8.5mg/dL(Normal) Range:8.5mg/dL-10.1mg/dL Comments:Calcium corrected for Albumin. MAGNESIUM Ordered On:30-Aug-2024 02:50 MAGNESIUM1.7mg/dL(Normal) Rang e:1.6mg/dL-2.6mg/dL TROPI HIGH SENSITIVITY Ordered On:30-Aug-2024 02:50 TROPI HIGH PMNFFUGRIOR05iy/L(Normal) Range:0-54ng/L GLUCOSE POINT OF CARE Ordered On:29-Aug-2024 Com ments:Cleaned Meter 29-Aug-2024 12:40 GLUCOSE POINT OF BMJC106di/dL(High) Range:70mg/dL-110mg/dL POC COOX PROFILE Ordered On:29-Aug-2024 21:04 POC CO-OX O2 LGZYKHYGJH24.7% Comments: 02 Saturation Reference ranges:Superior Vena Cava: 55%-65%Inferior Vena Cava: 65%-75%Right Atrium: 60%-70%Right Ventricle: 60%-70%Pulmonary Artery: 60%-70%Left Atrium: 93%-98%Left Ventricle: 93%-98%Systemic Artery: 93%-98% POC TOTAL SRJFXEBFIL92.1g/dL(Low) Range:13g/dL-18g/dL POC COOX PROFILE Ordered On:29-Aug-2024 21:04 POC CO-OX O2 CFLVVHBIYR48.4% Comments: 02 Saturation Reference ranges:Superior Vena Cava: 55%-65%Inferior Vena Cava: 65%-75%Right Atrium: 60%-70%Right Ventricle: 60%-70%Pulmonary Artery: 60%-70%Left Atrium: 93%-98%Left Ventricle: 93%-98%Systemic Artery: 93%-98% POC TOTAL BAFFDFMAQN11.0g/dL(Low) Range:13g/dL-18g/dL GLUCOSE POINT OF CARE Ordered On:29-Aug-2024 Com ments:KAVITA NotifiedCleaned Meter 29-Aug-2024 08:54 GLUCOSE POINT OF ZRSL413mk/dL(High) Range:70mg/dL-110mg/dL GLUCOSE POINT OF CARE Ordered On:29-Aug-2024 Com ments:KAVITA NotifiedCleaned Meter 29-Aug-2024 05:56 GLUCOSE POINT OF BUZS330nw/dL(High) Range:70mg/dL-110mg/dL PROTHROMBIN TIME PROFILE Ordered On:29-Aug-2024 Comments:Is [...] RATIO1.5(Normal) Range:0.7-3.6 ALBUMIN3.3g/dL(Normal) Range:3.2 g/dL-4.8g/dL ALKALINE PHOSPHATASE GRWGI823U/L(High) Range:46U/L-116U/L SGPT/ALT45U/L(Normal) Range:10U/ L-49U/L Comments:VENIPUNCTURE SHOULD OCCUR PRIOR TO SULFASALAZINE AND/ORSULFAPYRIDINE ADMINISTRATION DUE TO THE POTENTIAL FORFALSELY DEPRESSED RESULTS. SGOT/AST73U/L(High) Range:0U/L-3 4U/L Comments:VENIPUNCTURE SHOULD OCCUR PRIOR TO SULFASALAZINE AND/ORSULFAPYRIDINE ADMINISTRATION DUE TO THE POTENTIAL FORFALSELY DEPRESSED RESULTS. BILIRUBIN TOTAL1.1mg/dL(Normal) Range:0.3mg/dL-1.2mg/dL Comments:FOR PATIENTS ON ELTROMBOPAG THERAPY, THE USE OF SIEMENS TBIMETHOD IS NOT RECOMMENDED. BUN/CREATININE RATIO18(Normal) R daniel:4-33 BLOOD UREA KBRJOJSI00gk/dL(Normal) Range:9mg/dL-23mg/dL CALCIUM8.1mg/dL(Low) Range:8.7mg /dL-10.4mg/dL QBIXJUWH600dgyg/L(High) Range:98 mmol/L-107mmol/L [place] LUJFPBF15cqxw/L(Normal) R daniel:20mmol/L-31mmol/L CREATININE0.8mg/dL(Normal) Range :0.7mg/dL-1.3mg/dL ANION PDZ6camj/L(Normal) Range:7 mmol/L-16mmol/L eGFR> 90 Range:90-0 Comments:The eGFR is calculated using the 2020 CKD-EPI Cr equation,which includes serum Cr, age, and sex but does not include arace coefficient. The National Kidney Foundation recommendsthis formula for calculating eGFR in adults. GFR will notcalculate if sex is unknown or patient age is <18 years.Ref range: >/=90mL/min/1.73m2 GLOBULIN2.2g/dL(Normal) Range:1. 4g/dL-4.8g/dL YAQNRPN08le/dL(Normal) Range:57m g/dL-106mg/dL POTASSIUM3.9mmol/L(Normal) Range :3.5mmol/L-5.1mmol/L XQVTHO864nlax/L(Normal) Range:13 6mmol/L-145mmol/L TOTAL PROTEIN5.5g/dL(Low) Range: 5.7g/dL-8.2g/dL CORRECTED CALCIUM8.7mg/dL(Normal) Range:8.5mg/dL-10.1mg/dL Comments:Calcium corrected for Albumin. MAGNESIUM Ordered On:29-Aug-2024 06:22 MAGNESIUM1.8mg/dL(Normal) Rang e:1.6mg/dL-2.6mg/dL CBC WITH DIFFERENTIAL Ordered On:29-Aug-2024 06:30 BASOPHIL #0.0210*3/uL(Normal) Range:0.0110*3/uL-0.0810*3/uL BASOPHIL %0.5%(Normal) Range:0.2 %-1.2% EOSINOPHIL #0.1610*3/uL(Normal) Range:0.0410*3/uL-0.5410*3/uL EOSINOPHIL %3.7%(Normal) Range:0 .8%-7% YIVJUHCPZG57.9%(Low) Range:40.1% -51% YDRQOGXMBP47.1g/dL(Low) Range:13 .7g/dL-17.5g/dL Comments:RESULTS VERIFIED BY REPEAT ANALYSIS IMMATURE GRANULOCYTE S #0.0110*3/uL(Normal) Range:010*3/uL-0.0310*3/uL IMMATURE GRANULOCYTE S %0.2%(Normal) Range:0%-0.4% LYMPHOCYTE #1.2510*3/uL(Low) Ran ge:1.3210*3/uL-3.5710*3/uL LYMPHOCYTE %29.3%(Normal) Range: 21.8%-53.1% MEAN CELL HGB32.4pg(High) Range: 25.7pg-32.2pg MEAN CELL HGB PHNJQATVTMRVY62.7g/dL(Normal) Range:32.3g/dL-36.5g/dL MEAN CELL CMTBVO26.0fL(High) Ran ge:79fL-92.2fL MONOCYTE #0.4010*3/uL(Normal) Ra nge:0.310*3/uL-0.8210*3/uL MONOCYTE %9.4%(Normal) Range:5.3 %-12.2% MEAN PLATELET PRPPYN11.1fL(Normal) Range:9.4fL-12.4fL NEUTROPHIL #2.4310*3/uL(Normal) Range:1.7810*3/uL-5.3810*3/uL NEUTROPHIL %56.9%(Normal) Range: 34%-67.9% NUCLEATED RED BLOOD CELL #0.0010*3/uL(Normal) Range:010*3/uL-0.1810*3/uL NUCLEATED RED BLOOD CELL %0.0%(Normal) Range:0%-0.2% PLATELET MIWJB53054*3/uL(Low) Ra nge:66390*3/uL-20412*3/uL RED BLOOD CELL3.7410*6/uL(Low) R daniel:4.6310*6/uL-6.0810*6/uL RED CELL DISTRIBUTIO N WIDTH13.9%(Normal) Range:11.6%-14.4% WHITE BLOOD CELL4.310*3/uL(Normal) Range:410*3/uL-10.510*3/uL GLUCOSE POINT OF CARE Ordered On:28-Aug-2024 Com ments:KAVITA NotifiedCleaned Meter 28-Aug-2024 20:36 GLUCOSE POINT OF RSHD407fx/dL(High) Range:70mg/dL-110mg/dL GLUCOSE POINT OF CARE Ordered On:28-Aug-2024 Com ments:KAVITA NotifiedCleaned Meter 28-Aug-2024 16:33 GLUCOSE POINT OF DERW325pl/dL(High) Range:70mg/dL-110mg/dL COMPREHENSIVE METABOLIC PANEL Ordered On:28-Aug-2024 15:15 ALBUMIN/GLOBULIN RATIO1.6(Normal) Range:0.7-3.6 ALBUMIN3.3g/dL(Normal) Range:3.2 g/dL-4.8g/dL ALKALINE PHOSPHATASE XRLBA644H/L(High) Range:46U/L-116U/L SGPT/ALT42U/L(Normal) Range:10U/ L-49U/L Comments:VENIPUNCTURE SHOULD OCCUR PRIOR TO SULFASALAZINE AND/ORSULFAPYRIDINE ADMINISTRATION DUE TO THE POTENTIAL FORFALSELY DEPRESSED RESULTS. SGOT/AST59U/L(High) Range:0U/L-3 4U/L Comments:VENIPUNCTURE SHOULD OCCUR PRIOR TO SULFASALAZINE AND/ORSULFAPYRIDINE ADMINISTRATION DUE TO THE POTENTIAL FORFALSELY DEPRESSED RESULTS. BILIRUBIN TOTAL0.9mg/dL(Normal) Range:0.3mg/dL-1.2mg/dL Comments:FOR PATIENTS ON ELTROMBOPAG THERAPY, THE USE OF SIEMENS TBIMETHOD IS NOT RECOMMENDED. BUN/CREATININE RATIO15(Normal) R daniel:4-33 BLOOD UREA ABYJEFQC54xs/dL(Normal) Range:9mg/dL-23mg/dL CALCIUM8.2mg/dL(Low) Range:8.7mg /dL-10.4mg/dL SEKXMETG024cswb/L(High) Range:98 mmol/L-107mmol/L [place] FTQJPWS83xdpi/L(Normal) R daniel:20mmol/L-31mmol/L CREATININE0.9mg/dL(Normal) Range :0.7mg/dL-1.3mg/dL ANION DNN3vhih/L(Low) Range:7mmo l/L-16mmol/L eGFR> 90 Range:90-0 Comments:The eGFR is calculated using the 2020 CKD-EPI Cr equation,which includes serum Cr, age, and sex but does not include arace coefficient. The National Kidney Foundation recommendsthis formula for calculating eGFR in adults. GFR will notcalculate if sex is unknown or patient age is <18 years.Ref range: >/=90mL/min/1.73m2 GLOBULIN2.1g/dL(Normal) Range:1. 4g/dL-4.8g/dL WOCHGIP998xv/dL(High) Range:57mg /dL-106mg/dL POTASSIUM3.5mmol/L(Normal) Range :3.5mmol/L-5.1mmol/L BQVWJN780omfc/L(Normal) Range:13 6mmol/L-145mmol/L TOTAL PROTEIN5.4g/dL(Low) Range: 5.7g/dL-8.2g/dL CORRECTED CALCIUM8.8mg/dL(Normal) Range:8.5mg/dL-10.1mg/dL Comments:Calcium corrected for Albumin. TROPI HIGH SENSITIVITY Ordered On:28-Aug-2024 15:15 TROPI HIGH XGUZVMCGZID47nk/L(Critical High) Range:0-54ng/L Comments:RESULTS CALLED TO AND READ BACK BY ANEESH NAPOLES RN ON 3FRN/STEVENNON 08/28/24 AT 1515 BY: LOPEZ GLUCOSE POINT OF CARE Ordered On:28-Aug-2024 Com ments:RN NotifiedCleaned Meter 28-Aug-2024 15:25 GLUCOSE POINT OF XOOP255ao/dL(High) Range:70mg/dL-110mg/dL CBC Ordered On:28-Aug-2024 08:21 XNLSXDHBGW03.5%(Normal) Range: 40.1%-51% PUZLVUOCJF34.3g/dL Range:13.7g/d L-17.5g/dL Comments:RECOLLECTED TO VERIFY HGB RESULTS MEAN CELL HGB32.2pg(Normal) Rang e:25.7pg-32.2pg MEAN CELL HGB BNSGJCVHBEPBR96.6g/dL(Normal) Range:32.3g/dL-36.5g/dL MEAN CELL DNQTNF62.7fL(High) Ran ge:79fL-92.2fL PLATELET NYDFP39771*3/uL(Low) Ra nge:04378*3/uL-15764*3/uL RED BLOOD CELL4.4410*6/uL(Low) R daniel:4.6310*6/uL-6.0810*6/uL RED CELL DISTRIBUTIO N WIDTH13.8%(Normal) Range:11.6%-14.4% WHITE BLOOD CELL5.210*3/uL(Normal) Range:410*3/uL-10.510*3/uL GLUCOSE POINT OF CARE Ordered On:28-Aug-2024 Com ments:KAVITA NotifiedCleaned Meter 28-Aug-2024 05:58 GLUCOSE POINT OF WXFK199mp/dL(High) Range:70mg/dL-110mg/dL BASIC METABOLIC PANEL Ordered On:28-Aug-2024 06:35 BUN/CREATININE RATIO13(Normal) Range:4-33 BLOOD UREA XUNKCHTN90wq/dL(Normal) Range:9mg/dL-23mg/dL CALCIUM8.8mg/dL(Normal) Range:8. 7mg/dL-10.4mg/dL ZMGCZPJN967atrp/L(Normal) Range: 98mmol/L-107mmol/L [place] HQIZFRN21vcgr/L(Normal) R daniel:20mmol/L-31mmol/L CREATININE0.9mg/dL(Normal) Range :0.7mg/dL-1.3mg/dL ANION DCF7lmvw/L(Normal) Range:7 mmol/L-16mmol/L eGFR> 90 Range:90-0 Comments:The eGFR is calculated using the 2020 CKD-EPI Cr equation,which includes serum Cr, age, and sex but does not include arace coefficient. The National Kidney Foundation recommendsthis formula for calculating eGFR in adults. GFR will notcalculate if sex is unknown or patient age is <18 years.Ref range: >/=90mL/min/1.73m2 LAIYOGK368mb/dL(High) Range:57mg /dL-106mg/dL POTASSIUM4.0mmol/L(Normal) Range :3.5mmol/L-5.1mmol/L VPMLQU580mwga/L(Normal) Range:13 6mmol/L-145mmol/L MAGNESIUM Ordered On:28-Aug-2024 06:35 MAGNESIUM1.5mg/dL(Low) [...] NotifiedCleaned Meter 27-Aug-2024 19:39 GLUCOSE POINT OF CRQE918ti/dL(High) Range:70mg/dL-110mg/dL GLUCOSE POINT OF CARE Ordered On:27-Aug-2024 Com ments:RN NotifiedCleaned Meter 27-Aug-2024 15:35 GLUCOSE POINT OF AFZE354jr/dL(High) Range:70mg/dL-110mg/dL PTT PROFILE Ordered On:27-Aug-2024 Comments: Is patient on IV Heparin or Argatroban therapy? Yes 27-Aug-2024 15:09 PTT72s(Critical High) Range:25 s-38s Comments:Therapeutic heparin range is 58-92 seconds. PLATELET COUNT AV Ordered On:27-Aug-2024 Comment s:Is this an add-on request? No 27-Aug-2024 12:54 PLATELET WQLID9404*3/uL(Low) R daniel:50895*3/uL-76434*3/uL PTT PROFILE Ordered On:27-Aug-2024 Comments: Is patient on IV Heparin or Argatroban therapy? YesIs this an add-on request? No 27-Aug-2024 08:03 PTT76s(Critical High) Range:25 s-38s Comments:Therapeutic heparin range is 58-92 seconds. GLUCOSE POINT OF CARE Ordered On:27-Aug-2024 Com ments:RN Notified 27-Aug-2024 05:43 GLUCOSE POINT OF WROS812qt/dL(High) Range:70mg/dL-110mg/dL TROPI HIGH SENSITIVITY Ordered On:27-Aug-2024 06:13 TROPI HIGH HBQOLBRGEXS730wj/L(Critical High) Range:0-54ng/L Comments:RESULTS CALLED TO AND READ BACK BY LEROY CARR RN/3FON 08/27/24 AT 0613 BY: IRLALT1 BASIC METABOLIC PANEL Ordered On:27-Aug-2024 02:08 BUN/CREATININE RATIO15(Normal) Range:4-33 BLOOD UREA JLHYSEPE75uk/dL(Normal) Range:9mg/dL-23mg/dL CALCIUM7.8mg/dL(Low) Range:8.7mg /dL-10.4mg/dL OEAQECFU862xlcb/L(High) Range:98 mmol/L-107mmol/L [place] OVGZSNC05yixk/L(Normal) R daniel:20mmol/L-31mmol/L CREATININE0.9mg/dL(Normal) Range :0.7mg/dL-1.3mg/dL ANION BBH2qfff/L(Normal) Range:7 mmol/L-16mmol/L eGFR> 90 Range:90-0 Comments:The eGFR is calculated using the 2020 CKD-EPI Cr equation,which includes serum Cr, age, and sex but does not include arace coefficient. The National Kidney Foundation recommendsthis formula for calculating eGFR in adults. GFR will notcalculate if sex is unknown or patient age is <18 years.Ref range: >/=90mL/min/1.73m2 XOJRUEA98qm/dL(Normal) Range:57m g/dL-106mg/dL POTASSIUM3.5mmol/L(Normal) Range :3.5mmol/L-5.1mmol/L VECEVZ604ylqg/L(Normal) Range:13 6mmol/L-145mmol/L MAGNESIUM Ordered On:27-Aug-2024 02:08 MAGNESIUM1.4mg/dL(Low) Range:1 .6mg/dL-2.6mg/dL CBC Ordered On:27-Aug-2024 02:00 ZPKREUOHYB48.9%(Low) Range:40. 1%-51% XBWTCSENQY72.8g/dL(Low) Range:13 .7g/dL-17.5g/dL Comments:DELTA CHECK! SIGNIFICANT change from previous result.RESULTS CALLED TO: CLAUDIA WALLS 3F at 0200 08/27/24 MEAN CELL HGB31.2pg(Normal) Rang e:25.7pg-32.2pg MEAN CELL HGB ZLTYKKODKVDPO21.9g/dL(Normal) Range:32.3g/dL-36.5g/dL MEAN CELL UCEKPW24.0fL(High) Ran ge:79fL-92.2fL PLATELET HTTBJ8244*3/uL(Low) Ran ge:93175*3/uL-06043*3/uL RED BLOOD CELL3.7810*6/uL(Low) R daniel:4.6310*6/uL-6.0810*6/uL RED CELL DISTRIBUTIO N WIDTH14.2%(Normal) Range:11.6%-14.4% WHITE BLOOD CELL6.010*3/uL(Normal) Range:410*3/uL-10.510*3/uL PTT PROFILE Ordered On:27-Aug-2024 Comments: Is patient on IV Heparin or Argatroban therapy? Yes 27-Aug-2024 02:02 PTT68s(Critical High) Range:25 s-38s Comments:Therapeutic heparin range is 58-92 seconds. GLUCOSE POINT OF CARE Ordered On:26-Aug-2024 Com ments:RN Notified 26-Aug-2024 19:42 GLUCOSE POINT OF YJJW925ky/dL(High) Range:70mg/dL-110mg/dL PTT PROFILE Ordered On:26-Aug-2024 Comments: Is patient on IV Heparin or Argatroban therapy? Yes 26-Aug-2024 17:24 PTT> 200s(Critical High) Range :25s-38s Comments:CALLED RESULTS TO MAKSIM BURNS RN 3SAT 1724 BY SDAE ON 08/26/24.Were the results read back to the tech? YTherapeutic heparin range is 58-92 seconds. GLUCOSE POINT OF CARE Ordered On:26-Aug-2024 Com ments:RN Notified 26-Aug-2024 16:03 GLUCOSE POINT OF PJYF142no/dL(High) Range:70mg/dL-110mg/dL POTASSIUM Ordered On:26-Aug-2024 12:01 POTASSIUM3.7mmol/L(Normal) Ran ge:3.5mmol/L-5.1mmol/L CREATININE Ordered On:26-Aug-2024 12:01 CREATININE1.0mg/dL(Normal) Ran ge:0.7mg/dL-1.3mg/dL MAGNESIUM Ordered On:26-Aug-2024 12:01 MAGNESIUM1.6mg/dL(Normal) Rang e:1.6mg/dL-2.6mg/dL LACTIC ACID Ordered On:26-Aug-2024 12:09 LACTIC ACID3.7mmol/L(High) Ran ge:0.5mmol/L-2mmol/L Comments:ALL LACTIC ACID VALUES BETWEEN 2.0 AND 3.3 SHOULD BE CALLEDTO NURSING FOR SEPSIS EVALUATION. THIS IS NOT A CRITICALVALUE.RESULTS CALLED TO AND READ BACK BY MAKSIM VALE/YEVGENIY 08/26/24 AT 1209 BY: IRLBCC GLUCOSE POINT OF CARE Ordered On:26-Aug-2024 Com ments:RN Notified 26-Aug-2024 10:59 GLUCOSE POINT OF TLAZ472hz/dL(High) Range:70mg/dL-110mg/dL LACTIC ACID 3 Ordered On:26-Aug-2024 10:59 [...] is 58-92 seconds. AMMONIA Ordered On:26-Aug-2024 09:25 AFUPMKE87dicx/L(High) Range:11 umol/L-32umol/L LACTIC ACID 2 Ordered On:26-Aug-2024 [...] ments:RN Notified 26-Aug-2024 05:54 GLUCOSE POINT OF MYUF758uv/dL(High) Range:70mg/dL-110mg/dL CBC WITH DIFFERENTIAL Ordered On:26-Aug-2024 05:50 BASOPHIL #0.0510*3/uL(Normal) Range:0.0110*3/uL-0.0810*3/uL BASOPHIL %0.8%(Normal) Range:0.2 %-1.2% EOSINOPHIL #0.0710*3/uL(Normal) Range:0.0410*3/uL-0.5410*3/uL EOSINOPHIL %1.1%(Normal) Range:0 .8%-7% MVSKJAHXSD58.7%(Normal) Range:40 .1%-51% ZWEAWVIJWZ55.1g/dL(Normal) Range :13.7g/dL-17.5g/dL IMMATURE GRANULOCYTE S #0.0210*3/uL(Normal) Range:010*3/uL-0.0310*3/uL IMMATURE GRANULOCYTE S %0.3%(Normal) Range:0%-0.4% LYMPHOCYTE #2.1110*3/uL(Normal) Range:1.3210*3/uL-3.5710*3/uL LYMPHOCYTE %32.8%(Normal) Range: 21.8%-53.1% MEAN CELL HGB32.1pg(Normal) Rang e:25.7pg-32.2pg MEAN CELL HGB AFDRBUKZTUGAP78.6g/dL(Normal) Range:32.3g/dL-36.5g/dL MEAN CELL QULJJO38.7fL(High) Ran ge:79fL-92.2fL MONOCYTE #0.4510*3/uL(Normal) Ra nge:0.310*3/uL-0.8210*3/uL MONOCYTE %7.0%(Normal) Range:5.3 %-12.2% MEAN PLATELET IJHYCV46.0fL(Normal) Range:9.4fL-12.4fL NEUTROPHIL #3.7410*3/uL(Normal) Range:1.7810*3/uL-5.3810*3/uL NEUTROPHIL %58.0%(Normal) Range: 34%-67.9% NUCLEATED RED BLOOD CELL #0.0010*3/uL(Normal) Range:010*3/uL-0.1810*3/uL NUCLEATED RED BLOOD CELL %0.0%(Normal) Range:0%-0.2% PLATELET JLYPY97577*3/uL(Low) Ra nge:48659*3/uL-45465*3/uL RED BLOOD CELL4.3910*6/uL(Low) R daniel:4.6310*6/uL-6.0810*6/uL RED CELL DISTRIBUTIO N WIDTH13.6%(Normal) Range:11.6%-14.4% WHITE BLOOD CELL6.410*3/uL(Normal) Range:410*3/uL-10.510*3/uL COMPREHENSIVE METABOLIC PANEL Ordered On:26-Aug-2024 06:32 MXUEHG446hzgt/L(Normal) Range: 136mmol/L-145mmol/L POTASSIUM3.6mmol/L(Normal) Range :3.5mmol/L-5.1mmol/L HXRUMCLP929jvex/L(Normal) Range: 98mmol/L-107mmol/L [place] CANHUKH94ikit/L(Normal) R daniel:20mmol/L-31mmol/L ANION KCT11gsyg/L(Normal) Range: 7mmol/L-16mmol/L XANPCGU750sd/dL(High) Range:57mg /dL-106mg/dL BLOOD UREA KYLEFHIZ6uf/dL(Normal) Range:9mg/dL-23mg/dL CREATININE1.0mg/dL(Normal) Range :0.7mg/dL-1.3mg/dL BUN/CREATININE RATIO9(Normal) Ra [...] USE OF SIEMENS TBIMETHOD IS NOT RECOMMENDED. SGOT/NPW376W/L(High) Range:0U/L- 34U/L Comments:VENIPUNCTURE SHOULD OCCUR PRIOR TO SULFASALAZINE AND/ORSULFAPYRIDINE ADMINISTRATION DUE TO THE POTENTIAL FORFALSELY DEPRESSED RESULTS. SGPT/ALT70U/L(High) Range:10U/L- 49U/L Comments:VENIPUNCTURE SHOULD OCCUR PRIOR TO SULFASALAZINE AND/ORSULFAPYRIDINE ADMINISTRATION DUE TO THE POTENTIAL FORFALSELY DEPRESSED RESULTS. ALKALINE PHOSPHATASE TIBXP707D/L(High) Range:46U/L-116U/L PHOSPHORUS Ordered On:26-Aug-2024 06:32 PHOSPHORUS2.7mg/dL(Normal) Ran ge:2.4mg/dL-5.1mg/dL MAGNESIUM Ordered On:26-Aug-2024 06:32 MAGNESIUM1.7mg/dL(Normal) Rang e:1.6mg/dL-2.6mg/dL AG PROSTATE SPECIFIC Ordered On:26-Aug-2024 12:37 AG PROSTATE SPECIFIC0.8ng/mL R daniel:0ng/mL-4ng/mL Comments:PSA is intended to be used as an aid in the detection andmanagement of prostate cancer.See the 2013 [place] [employer] (AUA)guidelines for result interpretation. TROPI HIGH SENSITIVITY Ordered On:26-Aug-2024 12:37 TROPI HIGH AUHLGIKWWOG300ne/L(Critical High) Range:0-54ng/L Comments:RESULTS CALLED TO AND READ BACK BY Martha PATEL/YEVGENIY 08/26/24 AT 0811 BY: MICHAELA GLUCOSE POINT OF CARE Ordered On:26-Aug-2024 Com ments:RN Notified 26-Aug-2024 02:21 GLUCOSE POINT OF PYON829tt/dL(High) Range:70mg/dL-110mg/dL URINALYSIS W/REFLEX CULTURE Ordered On:26-Aug-2024 Comments:Indication [...] OR EQUAL TO 300 ng/mLBASED ON [facility] RECOMMENDATIONS FOR SCREENING DRUGS IN HUMANURINE. RESULTS TO BE USED FOR MEDICAL PURPOSES ONLY. UR OPIATESPRESUMPTIV E POSITIVE(Abnormal) Range:NEGATIVE Comments:QUALITATIVE PROCEDURE ONLYCUTOFF CONCENTRATION - GREATER THAN OR EQUAL TO 300 ng/mLBASED ON [facility] RECOMMENDATIONS FOR SCREENING DRUGS IN HUMANURINE. RESULTS [...] OR EQUAL TO 50 ng/mLBASED ON [facility] RECOMMENDATIONS FOR SCREENING DRUGS IN HUMANURINE. RESULTS TO BE USED FOR MEDICAL PURPOSES ONLY. TROPI HIGH SENSITIVITY Ordered On:26-Aug-2024 02:44 TROPI HIGH WBASLSFDAYB205aj/L(Critical High) Range:0-54ng/L Comments:RESULTS CALLED TO AND READ BACK BY AKILA HIRSCH/YEVGENIY 08/26/24 AT 0244 BY: PEÑA ARTERIAL BLOOD GAS Ordered On:26-Aug-2024 00:52 ABG ALLENS TESTUnk Comments: TESTING PERFORMED BY [facility]ATORY [facility] BAROMETRIC [id number][Hg] ABG BASE EXCESS-1.0mmol/L(Normal) Range:-2mmol/L-2mmol/L ABG DELIVERYRoom Air ABG GOZ890.0%(Normal) Range:20%- 100% ABG FCJZSTCWKIE23.3mmol/L(Normal) Range:22mmol/L-26mmol/L HEMOGLOBIN POC14.6g/dL(Normal) R daniel:13g/dL-18g/dL P5026.8mm[Hg](Normal) Range:25mm [Hg]-30mm[Hg] ABG CDL302.8mm[Hg](Normal) Range :35mm[Hg]-45mm[Hg] CORRECTED ABG VEA805.8mm[Hg](Normal) Range:35mm[Hg]-45mm[Hg] ABG BLOOD GAS PH7.372(Normal) Ra nge:7.35-7.45 CORRECTED ABG PH7.372(Normal) Ra nge:7.35-7.45 ABG GAS PO245.0mm[Hg ](Critical low) Range:80mm[Hg]-100mm[Hg] Comments:Results rechecked by [id number] on 08/26/2024 12:51:18 AMCalled To and Read Back by BILL TAYLOR MDVerbal read-back of results confirmed.5108/26/24 CORRECTED ABG PO245.0mm[Hg](Low) Range:80mm[Hg]-100mm[Hg] ABG SO279.0%(Critical low) Range :96%-100% Comments:Results rechecked by [id number] on 08/26/2024 12:51:18 AMCalled To and Read Back by BILL TAYLOR MDVerbal read-back of results confirmed.5108/26/24 ABG SITEOther ARTERIAL TOTAL CARBO N HJXZDCE25.6mmol/L(Normal) Range:24mmol/L-30mmol/L ABG IZLGWDNCFHM32.0Cel ABG TYPEBLOOD Venous CO-OX PROFILE Ordered On:26-Aug-2024 00:52 CO-OX CARBOXYHEMOGLOBIN5.5{%_tHb}(Hi gh) Range:0{%_tHb}-3{%_tHb} CO-OX METHEMOGLOBIN0.3%(Normal) Range:0%-3% CO-OX TOTAL HINPSZQNHN24.6g/dL(Normal) Range:13.5g/dL-18g/dL CBC WITH DIFFERENTIAL Ordered On:25-Aug-2024 00:13 BASOPHIL #0.0210*3/uL(Normal) Range:0.0110*3/uL-0.0810*3/uL BASOPHIL %0.4%(Normal) Range:0.2 %-1.2% EOSINOPHIL #0.0610*3/uL(Normal) Range:0.0410*3/uL-0.5410*3/uL EOSINOPHIL %1.1%(Normal) Range:0 .8%-7% DAOLDUXAVI54.1%(Normal) Range:40 .1%-51% NHDQZQWMIS35.5g/dL(Normal) Range :13.7g/dL-17.5g/dL IMMATURE GRANULOCYTE S #0.0210*3/uL(Normal) Range:010*3/uL-0.0310*3/uL IMMATURE GRANULOCYTE S %0.4%(Normal) Range:0%-0.4% LYMPHOCYTE #2.4110*3/uL(Normal) Range:1.3210*3/uL-3.5710*3/uL LYMPHOCYTE %42.3%(Normal) Range: 21.8%-53.1% MEAN CELL HGB32.3pg(High) Range: 25.7pg-32.2pg MEAN CELL HGB EBUILBJJCJPBC47.1g/dL(Normal) Range:32.3g/dL-36.5g/dL MEAN CELL LSIOMF75.9fL(Normal) R daniel:79fL-92.2fL MONOCYTE #0.4810*3/uL(Normal) Ra nge:0.310*3/uL-0.8210*3/uL MONOCYTE %8.4%(Normal) Range:5.3 %-12.2% MEAN PLATELET UVWWXH82.1fL(Normal) Range:9.4fL-12.4fL NEUTROPHIL #2.7110*3/uL(Normal) Range:1.7810*3/uL-5.3810*3/uL NEUTROPHIL %47.4%(Normal) Range: 34%-67.9% NUCLEATED RED BLOOD CELL #0.0010*3/uL(Normal) Range:010*3/uL-0.1810*3/uL NUCLEATED RED BLOOD CELL %0.0%(Normal) Range:0%-0.2% PLATELET CUJEU29063*3/uL(Low) Ra nge:79472*3/uL-36700*3/uL RED BLOOD CELL4.8010*6/uL(Normal) Range:4.6310*6/uL-6.0810*6/uL RED CELL DISTRIBUTIO N WIDTH13.7%(Normal) Range:11.6%-14.4% WHITE BLOOD CELL5.710*3/uL(Normal) Range:410*3/uL-10.510*3/uL COMPREHENSIVE METABOLIC PANEL Ordered On:25-Aug-2024 01:04 ALBUMIN/GLOBULIN RATIO1.5(Normal) Range:0.7-3.6 ALBUMIN4.0g/dL(Normal) Range:3.2 g/dL-4.8g/dL ALKALINE PHOSPHATASE KLYTU694O/L(High) Range:46U/L-116U/L SGPT/ALT53U/L(High) Range:10U/L- 49U/L Comments:VENIPUNCTURE SHOULD OCCUR PRIOR TO SULFASALAZINE AND/ORSULFAPYRIDINE ADMINISTRATION DUE TO THE POTENTIAL FORFALSELY DEPRESSED RESULTS. SGOT/AST52U/L(High) Range:0U/L-3 4U/L Comments:VENIPUNCTURE SHOULD OCCUR PRIOR TO SULFASALAZINE AND/ORSULFAPYRIDINE ADMINISTRATION DUE TO THE POTENTIAL FORFALSELY DEPRESSED RESULTS. BILIRUBIN TOTAL0.7mg/dL(Normal) Range:0.3mg/dL-1.2mg/dL Comments:FOR PATIENTS ON ELTROMBOPAG THERAPY, THE USE OF SIEMENS TBIMETHOD IS NOT RECOMMENDED. BUN/CREATININE RATIO7(Normal) Ra nge:4-33 BLOOD UREA UDCVXMMM0ek/dL(Normal) Range:9mg/dL-23mg/dL CALCIUM8.2mg/dL(Low) Range:8.7mg /dL-10.4mg/dL LYUAESZU41akxt/L(Low) Range:98mm ol/L-107mmol/L CARBON CTWLOFU07tkbx/L(Normal) R daniel:20mmol/L-31mmol/L CREATININE1.2mg/dL(Normal) Range :0.7mg/dL-1.3mg/dL ANION XWV26oewx/L(Normal) Range: 7mmol/L-16mmol/L eGFR69.2(Low) Range:90-0 Comments:The eGFR is calculated using the 2020 CKD-EPI Cr equation,which includes serum Cr, age, and sex but does not include arace coefficient. The [employer] Kidney Foundation recommendsthis formula for calculating eGFR in adults. GFR will notcalculate if sex is unknown or patient age is <18 years.Ref range: >/=90mL/min/1.73m2 GLOBULIN2.6g/dL(Normal) Range:1. 4g/dL-4.8g/dL DEVRFPB498za/dL(High) Range:57mg /dL-106mg/dL POTASSIUM3.0mmol/L(Low) Range:3. 5mmol/L-5.1mmol/L CXJZFL208zhhz/L(Normal) Range:13 6mmol/L-145mmol/L TOTAL PROTEIN6.6g/dL(Normal) Ran ge:5.7g/dL-8.2g/dL CORRECTED CALCIUM8.2mg/dL(Low) R daniel:8.5mg/dL-10.1mg/dL Comments:Calcium corrected for Albumin. MAGNESIUM Ordered On:25-Aug-2024 01:04 MAGNESIUM1.7mg/dL(Normal) Rang e:1.6mg/dL-2.6mg/dL THYROID STIMULATING HORMONE Ordered On:25-Aug-2024 01:04 THYROID STIMULATING HORMONE0.80uU/mL(Normal) Range:0.55uU/mL-4.78uU/mL TROPI HIGH SENSITIVITY Ordered On:25-Aug-2024 01:04 TROPI HIGH FEHPWJRKVQT29rr/L(Critical High) Range:0-54ng/L Comments:RESULTS CALLED TO AND READ BACK BY AKILA HIRSCH/YEVGENIY 08/26/24 AT 0035 BY: PEÑA ALCOHOL (ETHANOL) BLOOD Ordered On:25-Aug-2024 01:04 ALCOHOL (ETHANOL) FKZOL041iv/dL Comments:EXPECTED VALUES: UP TO 10 mg/dL MAY BE OBSERVED DUE TO PRESENCE OF VOLATILE REDUCING SUBSTANCES AND DOES NOT NECESSARILY INDICATE INGESTION OF ETHANOL.RANGE: < 10 mg/dL IS INCONCLUSIVE > 10 mg/dL INDICATES ETHANOL INGESTIONTOXIC: > 150 mg/dL ACETONE QUAL Ordered On:25-Aug-2024 01:04 ACETONE QUALNEGATIVE Range:NEG ATIVE B TYPE NATRIURETIC PEPTIDE Ordered On:25-Aug-2024 00:25 B TYPE NATRIURETIC IFEAKKU15.7pg/mL(Normal) Range:0pg/mL-100pg/mL Comments:BNP is a neurohormone secreted mainly [...] is 58-92 seconds. GLUBED Ordered On:07-Jul-2024 15:55 VZJOQG857dj/dL(High) Range:65m g/dL-99mg/dL Comments:Performed by certified power generation turbine room operator at [facility] GLUBED Ordered On:07-Jul-2024 14:21 BQMDCS201zy/dL(High) Range:65m g/dL-99mg/dL Comments:Performed by certified power generation turbine room operator at [facility] INFLUENZA A AG, INFLUENZA B AG [...] test allows for the detection of SARS-CoV fvtZGYO-RdW-2. The test detects, but does not differentiate,between the two viruses. Results are for the identification of LPXW-YxH-8ivwwmofbjliw protein antigen. Antigen is generallydetectable in upper [...] EOSINOPHIL #0.0910*3/uL(Normal) Range:010*3/uL-0.510*3/uL EOSINOPHIL %1.8%(Normal) Range:0 %-2.7% SHGBMSJPKN33.9%(Normal) Range:42 %-52% DDJMHOOOSM71.2g/dL(Normal) Range :14g/dL-17g/dL LYMPHOCYTE #1.9410*3/uL(Normal) Range:110*3/uL-4.810*3/uL LYMPHOCYTE %39.7%(Normal) Range: 24%-44% MEAN CELL HGB29.9pg(Normal) Rang e:27pg-31pg MEAN CELL HGB DEBOTPRDPDOH14.9g/dL(Normal) Range:33g/dL-37g/dL MEAN CELL ZTFZOG26.4fL(Normal) R daniel:80fL-94fL MONOCYTE #0.4810*3/uL(Normal) Ra nge:010*3/uL-0.810*3/uL MONOCYTE %9.8%(High) Range:0%-4% MEAN PLATELET EPXDMS35.5fL(High) Range:7.4fL-10.4fL NEUTROPHIL #2.3610*3/uL(Normal) Range:1.810*3/uL-7.710*3/uL NEUTROPHIL %48.3%(Normal) Range: 42%-86% PLATELET XEHDF30414*3/uL(Low) Ra nge:14062*3/uL-03803*3/uL RED BLOOD CELL5.0810*6/uL(Normal) Range:4.710*6/uL-6.110*6/uL RED CELL DISTRIBUTIO N WIDTH14.1%(Normal) Range:11.5%-14.5% WHITE BLOOD CELL4.8910*3/uL(Normal) Range:4.810*3/uL-10.810*3/uL UA RFLX MICROSOPIC Ordered On:07-Jul-2024 13:22 UA APPEARANCECLEAR Range:CLEAR UA BILIRUBIN DIPSTICKNEGATIVE Ra nge:NEGATIVE UA BLOOD DIPSTICKNEGATIVE Range: NEGATIVE UA COLORYELLOW Range:YELLOW UA COMMENTVOLUME 10-12 ML UA GLUCOSE MPSZFBNB1515jv/dL(Abnormal) Range:NEGATIVE mg/dL UA KETONE DIPSTICKNEGATIVEmg/dL Range:NEGATIVE mg/dL [...] confirmed by alternate methods (i.e., [facility]MS) [facility]. Results of screen may not be usedin criminal justice, job performance or professionalcredential review, or custody issues. Negative [place] Level ng/ml ----- Cocaine 300 Methamphetamine (Ecstacy) 500 Cannabinoids (THC) 50 Amphetamine 1000 Barbiturates 200 Benzodiazepines 200 Opiates 300 Phencyclidine (PCP) 25 COMPREHENSIVE METABOLIC PANEL Ordered On:07-Jul-2024 13:28 ALBUMIN/GLOBULIN RATIO1.1(Normal) Range:1.1-2.2 ALBUMIN3.4g/dL(Normal) Range:3.4 g/dL-5g/dL ALKALINE PHOSPHATASE DXAJB003A/L(Normal) Range:50U/L-136U/L SGPT/ALT65U/L(Normal) Range:30U/ L-65U/L Comments:Results of this assay method may be falsely depressed orelevated if patient is taking sulfasalazine. SGOT/AST89U/L(High) Range:15U/L- 37U/L Comments:Results of this assay method may be falsely depressed orelevated if patient is taking sulfasalazine. BILIRUBIN TOTAL0.6mg/dL(Normal) Range:0mg/dL-1mg/dL BLOOD UREA HBXAJRKK49jk/dL(Normal) Range:6mg/dL-20mg/dL CALCIUM8.7mg/dL(Normal) Range:8. 7mg/dL-10.5mg/dL DCNFNTYF73cyxj/L(Low) Range:100m mol/L-108mmol/L CARBON XZHPYEN52kjdj/L(Normal) R daniel:22mmol/L-32mmol/L CREATININE1.25mg/dL(High) Range: 0.6mg/dL-1mg/dL GLOMERULAR FILTRATIO [...] age is <18 years. GLOBULIN3.2g/dL(Normal) Range:1. 5g/dL-3.8g/dL SJXKLVN276ac/dL(Critical High) R daniel:65mg/dL-99mg/dL Comments:Results of this assay method may be falsely depressed orelevated if patient is taking sulfasalazine. POTASSIUM3.3mmol/L(Low) Range:3. 6mmol/L-5.2mmol/L NEBCOX720buxe/L(Normal) Range:13 3mmol/L-145mmol/L TOTAL PROTEIN6.6g/dL(Normal) Ran ge:6.4g/dL-8.2g/dL CV CALL CHEM Ordered On:07-Jul-2024 13:28 CV CALL CHEMCalled Comments:Re donavanrafael called to and read back by TASHI GARIBAY RN;.for analyte(s): GLUCOSE .at 1328 - 07/07/24; by [id number]. ALCOHOL Ordered On:07-Jul-2024 14:30 YOKBSSP205ia/dL(High) Range:0m g/dL-10mg/dL Comments:0 - 10: Should be interpreted as NEGATIVE. 11 - 50: None to mild euphoria. 51 - 100: Mild influence on vision and dark adaptation. > 80: Legal intoxication; Depression of CONSTRUCTION COORDINATOR; Increasing degree of poisoning. > 400: Fatalities reported.Results are for medical purposes only and not forlegal or employment evaluative purposes. TROP-I HIGH SENSITIVITY Ordered On:19-Apr-2024 00:57 TROP-I HIGH UDWAUWSONHY07zp/L R daniel:0-76ng/L Comments:Results above 51 for females [...] troponin from other clinical conditions, the Fourth [place] Definition of Myocardial Infarction stresses clinical assessment and demonstration of a rise and/or fall in serial troponin results above the upper reference limit.Results of this assay method may be falsely depressed orelevated if patient is taking high doses of Biotin. CBC W/AUTO DIFF Ordered On:18-Apr-2024 23:22 BASOPHIL #0.0510*3/uL(Normal) Range:010*3/uL-0.210*3/uL BASOPHIL %0.5%(Normal) Range:0%- 0.5% EOSINOPHIL #0.2110*3/uL(Normal) Range:010*3/uL-0.510*3/uL EOSINOPHIL %2.2%(Normal) Range:0 %-2.7% IEIICJOTAC18.4%(Normal) Range:42 %-52% WXNWVYIIFO56.1g/dL(Normal) Range :14g/dL-17g/dL LYMPHOCYTE #3.0010*3/uL(Normal) Range:110*3/uL-4.810*3/uL LYMPHOCYTE %30.8%(Normal) Range: 24%-44% MEAN CELL HGB32.3pg(High) Range: 27pg-31pg MEAN CELL HGB KIKPARXDCPLD45.3g/dL(Normal) Range:33g/dL-37g/dL MEAN CELL MMKCIV79.0fL(High) Ran ge:80fL-94fL MONOCYTE #0.6910*3/uL(Normal) Ra nge:010*3/uL-0.810*3/uL MONOCYTE %7.1%(High) Range:0%-4% MEAN PLATELET FUEPXG78.0fL(High) Range:7.4fL-10.4fL NEUTROPHIL #5.7810*3/uL(Normal) Range:1.810*3/uL-7.710*3/uL NEUTROPHIL %59.4%(Normal) Range: 42%-86% PLATELET GMEON04326*3/uL(Normal) Range:38445*3/uL-89440*3/uL RED BLOOD CELL4.3710*6/uL(Low) R adniel:4.710*6/uL-6.110*6/uL RED CELL DISTRIBUTIO N WIDTH12.9%(Normal) Range:11.5%-14.5% WHITE BLOOD CELL9.7310*3/uL(Normal) Range:4.810*3/uL-10.810*3/uL THROMBOPLASTIN TIME PARTIAL Ordered On:18-Apr-2024 Comments:Is patient on anticoagulants? No Anticoagulants 18-Apr-2024 23:39 THROMBOPLASTIN TIME FTMQUOE75.3s(Normal) Range:24.7s-38s Comments:*Therapeutic level for heparin: 1.5 - 2.5 times the average patient value of 30.0 seconds. The aPTT tet should not be used to evaluate low moleculat weight heparin anticoagulant therapy. COMPREHENSIVE METABOLIC PANEL Ordered On:18-Apr-2024 00:01 ALBUMIN/GLOBULIN RATIO1.1(Normal) Range:1.1-2.2 ALBUMIN3.9g/dL(Normal) Range:3.4 g/dL-5g/dL ALKALINE PHOSPHATASE EHOIO29E/L(Normal) Range:50U/L-136U/L SGPT/ALT36U/L(Normal) Range:30U/ L-65U/L Comments:Results of this assay method may be falsely depressed orelevated if patient is taking sulfasalazine. SGOT/AST25U/L(Normal) Range:15U/ L-37U/L Comments:Results of this assay method may be falsely depressed orelevated if patient is taking sulfasalazine. BILIRUBIN TOTAL0.3mg/dL(Normal) Range:0mg/dL-1mg/dL BLOOD UREA DDYDNWHZ29ut/dL(High) Range:6mg/dL-20mg/dL CALCIUM9.4mg/dL(Normal) Range:8. 7mg/dL-10.5mg/dL QBGOLURN947inwa/L(Normal) Range: 100mmol/L-108mmol/L CARB[place] ARNAFFE42gvzv/L(Normal) R daniel:22mmol/L-32mmol/L CREATININE1.17mg/dL(High) Range: 0.6mg/dL-1mg/dL GLOMERULAR FILTRATIO [...] age is <18 years. GLOBULIN3.5g/dL(Normal) Range:1. 5g/dL-3.8g/dL FMMKSCP669mb/dL(High) Range:65mg /dL-99mg/dL Comments:Results of this assay method may be falsely depressed orelevated if patient is taking sulfasalazine. POTASSIUM3.9mmol/L(Normal) Range :3.6mmol/L-5.2mmol/L LCIODR169fqco/L(Normal) Range:13 3mmol/L-145mmol/L TOTAL PROTEIN7.4g/dL(Normal) Ran ge:6.4g/dL-8.2g/dL NT PRO-BRAIN NATRIURETIC PEPTI Ordered On:18-Apr-2024 00:01 NT PRO-BRAIN NATRIUR ETIC JHLHW171mt/mL(High) Range:0pg/mL-125pg/mL Comments:Results of this assay method may be falsely depressed orelevated if patient is taking high doses of Biotin. TROP-I HIGH SENSITIVITY Ordered On:18-Apr-2024 00:01 TROP-I HIGH MCFQQLEIILQ47uh/L R daniel:0-76ng/L Comments:Results above 51 for females [...] troponin from other clinical conditions, the Fourth [place] Definition of Myocardial Infarction stresses clinical assessment and demonstration of a rise and/or fall in serial troponin results above the upper reference limit.Results of this assay method may be falsely depressed orelevated if patient is taking high doses of Biotin. GLUBED Ordered On:19-Feb-2024 11:15 GBCMGA113cd/dL(High) Range:65mg /dL-99mg/dL Comments:Performed by certified power generation turbine room operator at [facility] GLUBED Ordered On:19-Feb-2024 07:29 EFTZDK187gd/dL(High) Range:65mg /dL-99mg/dL Comments:Performed by certified power generation turbine room operator at [facility] GLUBED Ordered On:18-Feb-2024 19:56 OEIDAU514du/dL(High) Range:65mg /dL-99mg/dL Comments:Performed by certified power generation turbine room operator at [facility] GLUBED Ordered On:18-Feb-2024 16:25 ADFEHD407aq/dL(High) Range:65mg /dL-99mg/dL Comments:Performed by certified power generation turbine room operator at [facility] GLUBED Ordered On:18-Feb-2024 11:11 UCYNNP117zj/dL(High) Range:65mg /dL-99mg/dL Comments:Performed by certified power generation turbine room operator at [facility] GLUBED Ordered On:18-Feb-2024 07:32 NPMEOJ114ab/dL(High) Range:65mg /dL-99mg/dL Comments:Performed by certified power generation turbine room operator at [facility] CBC W/AUTO DIFF Ordered On:18-Feb-2024 06:25 BASOPHIL #0.0010*3/uL(Normal) R daniel:010*3/uL-0.210*3/uL BASOPHIL %0.0%(Normal) Range:0%- 0.5% EOSINOPHIL #0.0210*3/uL(Normal) Range:010*3/uL-0.510*3/uL EOSINOPHIL %0.3%(Normal) Range:0 %-2.7% GKCZPDKRIY47.3%(Low) Range:42%-5 2% HHEFDPBALE43.3g/dL(Low) Range:14 g/dL-17g/dL IMMATURE GRANULOCYTE #0.0710*3/uL(High) Range:010*3/uL-0.0310*3/uL IMMATURE GRANULOCYTE %1.1%(Normal) Range:0%-2% LYMPHOCYTE #1.2910*3/uL(Normal) Range:110*3/uL-4.810*3/uL LYMPHOCYTE %20.3%(Low) Range:24% -44% MEAN CELL HGB31.7pg(High) Range: 27pg-31pg MEAN CELL HGB XLZBESJMYQOD81.9g/dL(Normal) Range:33g/dL-37g/dL MEAN CELL MCOWGP99.3fL(Normal) R daniel:80fL-94fL MONOCYTE #0.7510*3/uL(Normal) Ra nge:010*3/uL-0.810*3/uL MONOCYTE %11.8%(High) Range:0%-4 % MEAN PLATELET MTRLAB12.4fL(High) Range:7.4fL-10.4fL NUCLEATED RBC #0.010*3/uL(Normal) Range:010*3/uL-0.210*3/uL NUCLEATED RBC %0.0%(Normal) Rang e:0%-0% NEUTROPHIL #4.2410*3/uL(Normal) Range:1.810*3/uL-7.710*3/uL NEUTROPHIL %66.5%(Normal) Range: 42%-86% PLATELET QCTVB05826*3/uL(Low) Ra nge:54093*3/uL-74219*3/uL RED BLOOD CELL3.5710*6/uL(Low) R daniel:4.710*6/uL-6.110*6/uL RED CELL DISTRIBUTIO N WIDTH18.6%(High) Range:11.5%-14.5% WHITE BLOOD CELL6.3710*3/uL(Normal) Range:4.810*3/uL-10.810*3/uL COMPREHENSIVE METABOLIC PANEL Ordered On:18-Feb-2024 07:24 ALBUMIN/GLOBULIN RATIO0.8(Low) Range:1.1-2.2 ALBUMIN2.1g/dL(Low) Range:3.4g/d L-5g/dL Comments:Please review results with caution Methodology has been changed with new instrumentation ALKALINE PHOSPHATASE RGCXF795V/L(High) Range:46U/L-116U/L Comments:Please review results with caution Methodology has been changed with new instrumentation SGPT/UYR729B/L(High) Range:10U/L -49U/L Comments:Please review results with caution Methodology has been changed with new instrumentation SGOT/LMX6408I/L(High) Range:0U/L -33U/L Comments:Please review results with caution Methodology has been changed with new instrumentation BILIRUBIN TOTAL6.40mg/dL(High) R daniel:0.2mg/dL-1.1mg/dL Comments:Please review results with caution Methodology has been changed with new instrumentation BLOOD UREA RCXRBELL55ev/dL(Normal) Range:9mg/dL-23mg/dL Comments:Please review results with caution Methodology has been changed with new instrumentation CALCIUM8.2mg/dL(Low) Range:8.3mg /dL-10.6mg/dL Comments:Please review results with caution Methodology has been changed with new instrumentation JVCRGALI841gwzq/L(High) Range:98 mmol/L-107mmol/L Comments:Please review results with caution Methodology has been changed with new instrumentation CARBON BXXHBAV06.0mmol/L(Normal) Range:20mmol/L-31mmol/L Comments:Please review results with caution Methodology [...] age is <18 years. GLOBULIN2.6g/dL(Normal) Range:1. 5g/dL-3.8g/dL GUAWYQT706as/dL(High) Range:74mg /dL-106mg/dL Comments:Please review results with caution Methodology has been changed with new instrumentation INDEX HEMOLYSISNEGATIVE{Grade} R daniel:0 NEG Grade INDEX ICTERIC1+{Grade} Range:0 N EG Grade POTASSIUM3.6mmol/L(Normal) Range :3.4mmol/L-5.1mmol/L Comments:Please review results with caution Methodology has been changed with new instrumentation INDEX LIPEMIANEGATIVE{Grade} Ran ge:0 NEG Grade BNKXXP856tvuo/L(Normal) Range:13 6mmol/L-145mmol/L Comments:Please review results with caution Methodology has been changed with new instrumentation TOTAL PROTEIN4.7g/dL(Low) Range: 5.7g/dL-8.2g/dL Comments:Please review results with caution Methodology has been changed with new instrumentation GLUBED Ordered On:17-Feb-2024 19:15 QBWOAT321rm/dL(High) Range:65mg /dL-99mg/dL Comments:Performed by certified power generation turbine room operator at [facility] GLUBED Ordered On:17-Feb-2024 15:53 QDFOQM949zy/dL(High) Range:65mg /dL-99mg/dL Comments:Performed by certified power generation turbine room operator at [facility] GLUBED Ordered On:17-Feb-2024 11:32 KEOFRX600ls/dL(High) Range:65mg /dL-99mg/dL Comments:Performed by certified power generation turbine room operator at [facility] GLUBED Ordered On:17-Feb-2024 07:39 GELMTI123qn/dL(High) Range:65mg /dL-99mg/dL Comments:Performed by certified power generation turbine room operator at [facility] GLUBED Ordered On:16-Feb-2024 19:19 DEOTRK526lb/dL(High) Range:65m g/dL-99mg/dL Comments:Performed by certified power generation turbine room operator at [facility] GLUBED Ordered On:16-Feb-2024 15:49 UILEWP565ix/dL(High) Range:65m g/dL-99mg/dL Comments:Performed by certified power generation turbine room operator at [facility] GLUBED Ordered On:16-Feb-2024 13:06 PGBTLX599bw/dL(High) Range:65m g/dL-99mg/dL Comments:Performed by certified power generation turbine room operator at [facility] GLUBED Ordered On:16-Feb-2024 08:30 ONCWRQ240hc/dL(High) Range:65m g/dL-99mg/dL Comments:Performed by certified power generation turbine room operator at [facility] GLUBED Ordered On:15-Feb-2024 19:34 DXDWLE539bk/dL(High) Range:65m g/dL-99mg/dL Comments:Performed by certified power generation turbine room operator at [facility] GLUBED Ordered On:15-Feb-2024 16:08 SCBTFB423ws/dL(High) Range:65m g/dL-99mg/dL Comments:Performed by certified power generation turbine room operator at [facility] GLUBED Ordered On:15-Feb-2024 11:11 KCHKMF440gb/dL(High) Range:65m g/dL-99mg/dL Comments:Performed by certified power generation turbine room operator at [facility] URINALYSIS W/O MICRO Ordered On:15-Feb-2024 Comm ents:URINE SOURCE: Clean Catch 15-Feb-2024 10:43 UA APPEARANCECLEAR Range:CLEAR UA BILIRUBIN DIPSTICK3+(Abnormal) Range:NEGATIVE UA BLOOD DIPSTICK1+ UA COLORDark-Yellow Range:YELLOW UA COMMENTVOLUME 10-12 ML UA GLUCOSE DIPSTICK> 1000mg/dL(Abnormal) Range:NEGATIVE mg/dL UA KETONE BBSGKBVW25mo/dL(Abnormal) Range:NEGATIVE mg/dL UA LEUKOCYTE ESTERAS E DIPSTICKNEGATIVE Range:NEGATIVE UA NITRITE DIPSTICKNEGATIVE Rang e:NEGATIVE UA PH DIPSTICK6.5(Normal) Range: 5.5-7 UA PROTEIN EIJCXIRP89el/dL Range :NEGATIVE mg/dL UA SPECIFIC GRAVITY1.019(Normal) Range:1.001-1.035 URINE SPECIMEN DESCRIPTIONClean Catch UA UROBILINOGEN DIPSTICKNORMALmg/dL Range:NORMAL mg/dL GLUBED Ordered On:15-Feb-2024 07:35 PWIEUE005yq/dL(High) Range:65m g/dL-99mg/dL Comments:Performed by certified power generation turbine room operator at [facility] CBC W/AUTO DIFF Ordered On:15-Feb-2024 05:14 BASOPHIL #0.0010*3/uL(Normal) Range:010*3/uL-0.210*3/uL BASOPHIL %0.0%(Normal) Range:0%- 0.5% EOSINOPHIL #0.0110*3/uL(Normal) Range:010*3/uL-0.510*3/uL EOSINOPHIL %0.1%(Normal) Range:0 %-2.7% ODOGZUWZHT29.8%(Low) Range:42%-5 2% EMZGVXRGFK45.8g/dL(Low) Range:14 g/dL-17g/dL IMMATURE GRANULOCYTE #0.0710*3/uL(High) Range:010*3/uL-0.0310*3/uL IMMATURE GRANULOCYTE %1.0%(Normal) Range:0%-2% LYMPHOCYTE #0.5810*3/uL(Low) Ran ge:110*3/uL-4.810*3/uL LYMPHOCYTE %8.3%(Low) Range:24%- 44% MEAN CELL HGB31.7pg(High) Range: 27pg-31pg MEAN CELL HGB ZCVRNZVFKWEJ16.9g/dL(Low) Range:33g/dL-37g/dL MEAN CELL KMTPIL02.2fL(High) Ran ge:80fL-94fL MANUAL DIFF REQUIRED SCAN PLT_RBC Range:TECH REVIEW MONOCYTE #0.3510*3/uL(Normal) Ra nge:010*3/uL-0.810*3/uL MONOCYTE %5.0%(High) Range:0%-4% MEAN PLATELET INCRGL15.1fL(High) Range:7.4fL-10.4fL NUCLEATED RBC #0.010*3/uL(Normal) Range:010*3/uL-0.210*3/uL NUCLEATED RBC %0.0%(Normal) Rang e:0%-0% NEUTROPHIL #5.9910*3/uL(Normal) Range:1.810*3/uL-7.710*3/uL NEUTROPHIL %85.6%(Normal) Range: 42%-86% PLATELET KVXXI4195*3/uL(Low) Ran ge:74570*3/uL-78945*3/uL RED BLOOD CELL3.4110*6/uL(Low) R daniel:4.710*6/uL-6.110*6/uL RED CELL DISTRIBUTIO N WIDTH18.7%(High) Range:11.5%-14.5% WHITE BLOOD CELL7.0010*3/uL(Normal) Range:4.810*3/uL-10.810*3/uL RBC MORPHOLOGY Ordered On:15-Feb-2024 05:14 RBC MORPHOLOGY COMME NTSee Comment ANISOCYTOSIS1+ PLATELET ESTIMATE Ordered On:15-Feb-2024 05:14 PLATELET ESTIMATEDec(Abnormal) Range:NORMAL COMPREHENSIVE METABOLIC PANEL Ordered On:15-Feb-2024 05:19 ALBUMIN/GLOBULIN RATIO1.1(Normal) Range:1.1-2.2 ALBUMIN2.2g/dL(Low) Range:3.4g/d L-5g/dL Comments:Please review results with caution Methodology has been changed with new instrumentation ALKALINE PHOSPHATASE LXRNB250P/L(High) Range:46U/L-116U/L Comments:Please review results with caution Methodology has been changed with new instrumentation SGPT/EDV382K/L(High) Range:10U/L -49U/L Comments:Please review results with caution Methodology has been changed with new instrumentation SGOT/DBJ606M/L(High) Range:0U/L- 33U/L Comments:Please review results with caution Methodology has been changed with new instrumentation BILIRUBIN TOTAL13.60mg/dL(Critical High) Range:0.2mg/dL-1.1mg/dL Comments:Please review results with caution Methodology has been changed with new instrumentation BLOOD UREA NPHWLJEI70zo/dL(Normal) Range:9mg/dL-23mg/dL Comments:Please review results with caution Methodology has been changed with new instrumentation CALCIUM8.3mg/dL(Normal) Range:8. 3mg/dL-10.6mg/dL Comments:Please review results with caution Methodology has been changed with new instrumentation VTGKQNQT368cias/L(High) Range:98 mmol/L-107mmol/L Comments:Please review results with caution Methodology has been changed with new instrumentation CARBON WPAEACK16.0mmol/L(Normal) Range:20mmol/L-31mmol/L Comments:Please review results with caution Methodology [...] age is <18 years. GLOBULIN2.0g/dL(Normal) Range:1. 5g/dL-3.8g/dL NYFLIAD970sx/dL(High) Range:74mg /dL-106mg/dL Comments:Please review results with caution Methodology has been changed with new instrumentation INDEX HEMOLYSISNEGATIVE{Grade} R daniel:0 NEG Grade INDEX ICTERIC2+{Grade} Range:0 N EG Grade POTASSIUM4.2mmol/L(Normal) Range :3.4mmol/L-5.1mmol/L Comments:Please review results with caution Methodology has been changed with new instrumentation INDEX LIPEMIANEGATIVE{Grade} Ran ge:0 NEG Grade MBTRGX454zgfh/L(Normal) Range:13 6mmol/L-145mmol/L Comments:Please review results with caution [...] called to and read back by SAHIL KAUR RN;.for analyte(s): BILT .at 0509 - 02/15/24; by D.LAB.NS. PLATELET MORPHOLOGY Ordered On:15-Feb-2024 05:14 PLATELET MORPHOLOGYV ariable Plt Size(Abnormal) Range:Normal GLUBED Ordered On:14-Feb-2024 20:06 RNNDHS092oc/dL(High) Range:65m g/dL-99mg/dL Comments:Performed by certified power generation turbine room operator at [facility] GLUBED Ordered On:14-Feb-2024 16:03 CBWVNH045ql/dL(High) Range:65m g/dL-99mg/dL Comments:Performed by certified power generation turbine room operator at [facility] GLUBED Ordered On:14-Feb-2024 11:16 AVSELJ296dg/dL(High) Range:65m g/dL-99mg/dL Comments:Performed by certified power generation turbine room operator at [facility] GLUBED Ordered On:14-Feb-2024 07:37 NJFCZS690ss/dL(High) Range:65m g/dL-99mg/dL Comments:Performed by certified power generation turbine room operator at [facility] GLUBED Ordered On:14-Feb-2024 06:03 WNRPNL777sp/dL(High) Range:65m g/dL-99mg/dL Comments:Performed by certified power generation turbine room operator at [facility] CBC W/AUTO DIFF Ordered On:14-Feb-2024 12:01 BASOPHIL #0.0010*3/uL(Normal) Range:010*3/uL-0.210*3/uL BASOPHIL %0.0%(Normal) Range:0%- 0.5% EOSINOPHIL #0.0010*3/uL(Normal) Range:010*3/uL-0.510*3/uL EOSINOPHIL %0.0%(Normal) Range:0 %-2.7% GXSPAUEIXK29.2%(Low) Range:42%-5 2% DXYMSAXFYB82.5g/dL(Low) Range:14 g/dL-17g/dL IMMATURE GRANULOCYTE #0.0610*3/uL(High) Range:010*3/uL-0.0310*3/uL IMMATURE GRANULOCYTE %0.8%(Normal) Range:0%-2% LYMPHOCYTE #0.4810*3/uL(Low) Ran ge:110*3/uL-4.810*3/uL LYMPHOCYTE %6.3%(Low) Range:24%- 44% MEAN CELL HGB31.3pg(High) Range: 27pg-31pg MEAN CELL HGB JZMAOJVTPOIJ83.6g/dL(Low) Range:33g/dL-37g/dL MEAN CELL OVJTLV11.8fL(High) Ran ge:80fL-94fL MANUAL DIFF REQUIRED SCAN PLT_RBC Range:TECH REVIEW MONOCYTE #0.2310*3/uL(Normal) Ra nge:010*3/uL-0.810*3/uL MONOCYTE %3.0%(Normal) Range:0%- 4% MEAN PLATELET JLIMPS02.0fL(High) Range:7.4fL-10.4fL NUCLEATED RBC #0.010*3/uL(Normal) Range:010*3/uL-0.210*3/uL NUCLEATED RBC %0.0%(Normal) Rang e:0%-0% NEUTROPHIL #6.8410*3/uL(Normal) Range:1.810*3/uL-7.710*3/uL NEUTROPHIL %89.9%(High) Range:42 %-86% PLATELET VAYZM9509*3/uL(Low) Ran ge:62221*3/uL-30979*3/uL RED BLOOD CELL3.3610*6/uL(Low) R daniel:4.710*6/uL-6.110*6/uL RED CELL DISTRIBUTIO N WIDTH18.4%(High) Range:11.5%-14.5% WHITE BLOOD CELL7.6110*3/uL(Normal) Range:4.810*3/uL-10.810*3/uL RBC MORPHOLOGY Ordered On:14-Feb-2024 12:01 ANISOCYTOSIS1+ MACROCYTOSISOcc PLATELET ESTIMATE Ordered On:14-Feb-2024 12:01 PLATELET ESTIMATEDec(Abnormal) Range:NORMAL Comments:MANUAL PLATELET ESTIMATE: 60,000 /cu.mm. COMPREHENSIVE METABOLIC PANEL Ordered On:14-Feb-2024 07:11 ALBUMIN/GLOBULIN RATIO1.2(Normal) Range:1.1-2.2 ALBUMIN2.3g/dL(Low) Range:3.4g/d L-5g/dL Comments:Please review results with caution Methodology has been changed with new instrumentation ALKALINE PHOSPHATASE XLVMF977W/L(High) Range:46U/L-116U/L Comments:Please review results with caution Methodology has been changed with new instrumentation SGPT/KNR535J/L(High) Range:10U/L -49U/L Comments:Please review results with caution Methodology has been changed with new instrumentation SGOT/DOE282R/L(High) Range:0U/L- 33U/L Comments:Please review results with caution Methodology has been changed with new instrumentation BILIRUBIN TOTAL13.70mg/dL(Critical High) Range:0.2mg/dL-1.1mg/dL Comments:Please review results with caution Methodology has been changed with new instrumentation BLOOD UREA TGQWVHGD21ve/dL(Normal) Range:9mg/dL-23mg/dL Comments:Please review results with caution Methodology has been changed with new instrumentation CALCIUM7.9mg/dL(Low) Range:8.3mg /dL-10.6mg/dL Comments:Please review results with caution Methodology has been changed with new instrumentation XHZQXCTL190hxju/L(High) Range:98 mmol/L-107mmol/L Comments:Please review results with caution Methodology has been changed with new instrumentation CARBON TTELGNE39.0mmol/L(Normal) Range:20mmol/L-31mmol/L Comments:Please review results with caution Methodology [...] age is <18 years. GLOBULIN1.9g/dL(Normal) Range:1. 5g/dL-3.8g/dL XCZQIYG433bf/dL(High) Range:74mg /dL-106mg/dL Comments:Please review results with caution Methodology has been changed with new instrumentation INDEX HEMOLYSISNEGATIVE{Grade} R daniel:0 NEG Grade INDEX ICTERIC2+{Grade} Range:0 N EG Grade POTASSIUM3.8mmol/L(Normal) Range :3.4mmol/L-5.1mmol/L Comments:Please review results with caution Methodology has been changed with new instrumentation INDEX LIPEMIANEGATIVE{Grade} Ran ge:0 NEG Grade OPLRPO563axpo/L(Normal) Range:13 6mmol/L-145mmol/L Comments:Please review results with caution [...] by SAHRA VALERA RN;.for analyte(s): BILT .at 710 - 02/14/24; by D.LAB.NS. GLUBED Ordered On:13-Feb-2024 19:33 MGXBCY947tk/dL(High) Range:65m g/dL-99mg/dL Comments:Performed by certified power generation turbine room operator at [facility] GLUBED Ordered On:13-Feb-2024 16:05 SATRBH280ks/dL(High) Range:65m g/dL-99mg/dL Comments:Performed by certified power generation turbine room operator at [facility] GLUBED Ordered On:13-Feb-2024 12:03 SCGVNO65ei/dL(Normal) Range:65 mg/dL-99mg/dL Comments:Performed by certified power generation turbine room operator at [facility] GLUBED Ordered On:13-Feb-2024 08:01 DLLSMT060jw/dL(High) Range:65m g/dL-99mg/dL Comments:Performed by certified power generation turbine room operator at [facility] GLUBED Ordered On:13-Feb-2024 06:10 NZLVZW047hf/dL(High) Range:65m g/dL-99mg/dL Comments:Performed by certified power generation turbine room operator at [facility] CBC W/AUTO DIFF Ordered On:13-Feb-2024 07:09 BASOPHIL #0.0210*3/uL(Normal) Range:010*3/uL-0.210*3/uL BASOPHIL %0.2%(Normal) Range:0%- 0.5% EOSINOPHIL #0.0010*3/uL(Normal) Range:010*3/uL-0.510*3/uL EOSINOPHIL %0.0%(Normal) Range:0 %-2.7% BGCGDBUABQ12.6%(Low) Range:42%-5 2% WUWGZCDPKF02.8g/dL(Low) Range:14 g/dL-17g/dL IMMATURE GRANULOCYTE #0.1010*3/uL(High) Range:010*3/uL-0.0310*3/uL IMMATURE GRANULOCYTE %0.9%(Normal) Range:0%-2% LYMPHOCYTE #1.0810*3/uL(Normal) Range:110*3/uL-4.810*3/uL LYMPHOCYTE %10.0%(Low) Range:24% -44% MEAN CELL HGB31.6pg(High) Range: 27pg-31pg MEAN CELL HGB FLDRCEZELHNA42.0g/dL(Normal) Range:33g/dL-37g/dL MEAN CELL QFHALP68.8fL(Normal) R daniel:80fL-94fL MANUAL DIFF REQUIRED SCAN PLT_RBC Range:TECH REVIEW MONOCYTE #0.7910*3/uL(Normal) Ra nge:010*3/uL-0.810*3/uL MONOCYTE %7.3%(High) Range:0%-4% MEAN PLATELET AWVPJU92.1fL(High) Range:7.4fL-10.4fL NUCLEATED RBC #0.010*3/uL(Normal) Range:010*3/uL-0.210*3/uL NUCLEATED RBC %0.0%(Normal) Rang e:0%-0% NEUTROPHIL #8.8510*3/uL(High) Ra nge:1.810*3/uL-7.710*3/uL NEUTROPHIL %81.6%(Normal) Range: 42%-86% PLATELET YDKOG4359*3/uL(Low) Ran ge:20287*3/uL-24867*3/uL RED BLOOD CELL4.0510*6/uL(Low) R daniel:4.710*6/uL-6.110*6/uL RED CELL DISTRIBUTIO N WIDTH18.5%(High) Range:11.5%-14.5% WHITE BLOOD CELL10.8410*3/uL(High) Range:4.810*3/uL-10.810*3/uL RBC MORPHOLOGY Ordered On:13-Feb-2024 07:09 ANISOCYTOSISOcc PLATELET ESTIMATE Ordered On:13-Feb-2024 07:09 PLATELET ESTIMATEDec(Abnormal) Range:NORMAL Comments:MANUAL PLATELET ESTIMATE: 75,000 COMPREHENSIVE METABOLIC PANEL Ordered On:13-Feb-2024 07:02 ALBUMIN/GLOBULIN RATIO1.0(Low) Range:1.1-2.2 ALBUMIN2.6g/dL(Low) Range:3.4g/d L-5g/dL Comments:Please review results with caution Methodology has been changed with new instrumentation ALKALINE PHOSPHATASE HTGBS041P/L(High) Range:46U/L-116U/L Comments:Please review results with caution Methodology has been changed with new instrumentation SGPT/XST065O/L(High) Range:10U/L -49U/L Comments:Please review results with caution Methodology has been changed with new instrumentation SGOT/XQI441L/L(High) Range:0U/L- 33U/L Comments:Please review results with caution Methodology has been changed with new instrumentation BILIRUBIN TOTAL11.50mg/dL(Critical High) Range:0.2mg/dL-1.1mg/dL Comments:Please review results with caution Methodology has been changed with new instrumentation BLOOD UREA VWYYFNLD86py/dL(Normal) Range:9mg/dL-23mg/dL Comments:Please review results with caution Methodology has been changed with new instrumentation CALCIUM8.3mg/dL(Normal) Range:8. 3mg/dL-10.6mg/dL Comments:Please review results with caution Methodology has been changed with new instrumentation VLXHFENA111cxmn/L(Normal) Range: 98mmol/L-107mmol/L Comments:Please review results with caution Methodology has been changed with new instrumentation CARBON CLKDPOL28.0mmol/L(Normal) Range:20mmol/L-31mmol/L Comments:Please review results with caution Methodology [...] age is <18 years. GLOBULIN2.5g/dL(Normal) Range:1. 5g/dL-3.8g/dL TVYTZBO300mg/dL(High) Range:74mg /dL-106mg/dL Comments:Please review results with caution Methodology has been changed with new instrumentation INDEX HEMOLYSIS1+{Grade} Range:0 NEG Grade INDEX ICTERIC2+{Grade} Range:0 N EG Grade POTASSIUM4.0mmol/L(Normal) Range :3.4mmol/L-5.1mmol/L Comments:Please review results with caution Methodology has been changed with new instrumentation INDEX LIPEMIANEGATIVE{Grade} Ran ge:0 NEG Grade YVOIOZ614hgmp/L(Low) Range:136mm ol/L-145mmol/L Comments:Please review results with caution Methodology has been changed with new instrumentation TOTAL PROTEIN5.1g/dL(Low) Range: 5.7g/dL-8.2g/dL Comments:Please review results with caution Methodology has been changed with new instrumentation MAGNESIUM Ordered On:13-Feb-2024 07:02 MAGNESIUM2.0mg/dL(Normal) Rang e:1.6mg/dL-2.6mg/dL Comments:Please review results with caution Methodology has been changed with new instrumentation NT PRO-BRAIN NATRIURETIC PEPTI Ordered On:13-Feb-2024 07:02 NT PRO-BRAIN NATRIUR ETIC VYDWS6324hm/mL(High) Range:0pg/mL-299pg/mL Comments:Please review results with caution Methodology has been changed with new instrumentation CV CALL CHEM Ordered On:13-Feb-2024 07:02 CV CALL CHEMCalled Comments:Re sults called to and read back by KIRSTIN BRAUN RN;.for analyte(s): BILT .at 701 - 02/13/24; by ABRAHAM. GLUBED Ordered On:12-Feb-2024 20:01 WIVYUH356sx/dL(High) Range:65m g/dL-99mg/dL Comments:Performed by certified power generation turbine room operator at [facility] GLUBED Ordered On:12-Feb-2024 16:23 YOVWAZ073is/dL(High) Range:65m g/dL-99mg/dL Comments:Performed by certified power generation turbine room operator at [facility] HEPATIC FUNCTION PANEL Ordered On:12-Feb-2024 16:14 ALBUMIN/GLOBULIN RATIO1.0(Low) Range:1.1-2.2 ALBUMIN2.7g/dL(Low) Range:3.4g/d L-5g/dL Comments:Please review results with caution Methodology has been changed with new instrumentation ALKALINE PHOSPHATASE KXQHT385N/L(High) Range:46U/L-116U/L Comments:Please review results with caution Methodology has been changed with new instrumentation SGPT/RQK233A/L(High) Range:10U/L -49U/L Comments:Please review results with caution Methodology has been changed with new instrumentation SGOT/WNR567Y/L(High) Range:0U/L- 33U/L Comments:Please review results with caution [...] Ordered On:12-Feb-2024 16:14 CV CALL CHEMCalled Comments:Re sults called to and read back by HOA TAYLOR RN;.for analyte(s): BILT .at 1614 - 02/12/24; by [id number]. ACUTE HEPATITIS PANEL(Pending) Ordered On:12-Feb-2024 Comments:GAVE APPROVAL [...] new instrumentation INTERPRETATION GLUBED Ordered On:12-Feb-2024 11:56 XTYPID609zt/dL(High) Range:65m g/dL-99mg/dL Comments:Performed by certified power generation turbine room operator at [facility] GLUBED Ordered On:12-Feb-2024 06:17 JWKZLY804ce/dL(High) Range:65m g/dL-99mg/dL Comments:Performed by certified power generation turbine room operator at [facility] CBC W/AUTO DIFF Ordered On:12-Feb-2024 10:20 BASOPHIL #0.0210*3/uL(Normal) Range:010*3/uL-0.210*3/uL BASOPHIL %0.4%(Normal) Range:0%- 0.5% EOSINOPHIL #0.0410*3/uL(Normal) Range:010*3/uL-0.510*3/uL EOSINOPHIL %0.7%(Normal) Range:0 %-2.7% JYTAJQZMUX02.6%(Low) Range:42%-5 2% AEDURHPYFL77.3g/dL(Low) Range:14 g/dL-17g/dL IMMATURE GRANULOCYTE #0.0210*3/uL(Normal) Range:010*3/uL-0.0310*3/uL IMMATURE GRANULOCYTE %0.4%(Normal) Range:0%-2% LYMPHOCYTE #1.8710*3/uL(Normal) Range:110*3/uL-4.810*3/uL LYMPHOCYTE %34.8%(Normal) Range: 24%-44% MEAN CELL HGB31.1pg(High) Range: 27pg-31pg MEAN CELL HGB JTAMMQQFRGVU16.4g/dL(Normal) Range:33g/dL-37g/dL MEAN CELL JCOAMC84.9fL(Normal) R daniel:80fL-94fL MANUAL DIFF REQUIRED SCAN PLT_RBC Range:TECH REVIEW MONOCYTE #0.5410*3/uL(Normal) Ra nge:010*3/uL-0.810*3/uL MONOCYTE %10.0%(High) Range:0%-4 % MEAN PLATELET ICMEDV59.3fL(Normal) Range:7.4fL-10.4fL NUCLEATED RBC #0.010*3/uL(Normal) Range:010*3/uL-0.210*3/uL NUCLEATED RBC %0.0%(Normal) Rang e:0%-0% NEUTROPHIL #2.8910*3/uL(Normal) Range:1.810*3/uL-7.710*3/uL NEUTROPHIL %53.7%(Normal) Range: 42%-86% PLATELET FAYKU7666*3/uL(Low) Ran ge:79513*3/uL-87508*3/uL RED BLOOD CELL4.2810*6/uL(Low) R daniel:4.710*6/uL-6.110*6/uL RED CELL DISTRIBUTIO N WIDTH18.8%(High) Range:11.5%-14.5% WHITE BLOOD CELL5.3810*3/uL(Normal) Range:4.810*3/uL-10.810*3/uL RBC MORPHOLOGY Ordered On:12-Feb-2024 10:20 MICROCYTOSIS1+ TARGET CELLS1+ PLATELET ESTIMATE Ordered On:12-Feb-2024 10:20 PLATELET ESTIMATEDec(Abnormal) Range:NORMAL Comments:MANUAL PLATELET ESTIMATE: 90,000 BASIC METABOLIC PANEL Ordered On:12-Feb-2024 10:19 BLOOD UREA SUQASSEB38mp/dL(Normal) Range:9mg/dL-23mg/dL Comments:Please review results with caution Methodology has been changed with new instrumentation CALCIUM7.7mg/dL(Low) Range:8.3mg /dL-10.6mg/dL Comments:Please review results with caution Methodology has been changed with new instrumentation SJQAPNGE00esfv/L(Normal) Range:9 8mmol/L-107mmol/L Comments:Please review results with caution Methodology has been changed with new instrumentation CARBON DISKRNZ60.0mmol/L(Normal) Range:20mmol/L-31mmol/L Comments:Please review results with caution Methodology [...] or if thepatient's age is <18 years. RPOBSZS417ao/dL(High) Range:74mg /dL-106mg/dL Comments:Please review results with caution Methodology has been changed with new instrumentation INDEX HEMOLYSIS1+{Grade} Range:0 NEG Grade INDEX ICTERIC1+{Grade} Range:0 N EG Grade POTASSIUM2.6mmol/L(C ritical low) Range:3.4mmol/L-5.1mmol/L Comments:Please review results with caution Methodology has been changed with new instrumentation INDEX LIPEMIANEGATIVE{Grade} Ran ge:0 NEG Grade TCHXAY639ptvr/L(Low) Range:136mm ol/L-145mmol/L Comments:Please review results with caution [...] Comments: ADD ON TEST? Yes 12-Feb-2024 12:44 DLSHTBW73O/L(Normal) Range:30U /L-118U/L Comments:Please review results with caution Methodology has been changed with new instrumentation LIPASE Ordered On:12-Feb-2024 Comments: ADD ON TEST? Yes 12-Feb-2024 12:44 YRNTNT92L/L(Normal) Range:12U/ L-53U/L Comments:Please review results with caution Methodology has been changed with new instrumentation GLUBED Ordered On:12-Feb-2024 03:07 VHVKMO071mc/dL(High) Range:65m g/dL-99mg/dL Comments:Performed by certified power generation turbine room operator at [facility] GLUBED Ordered On:11-Feb-2024 22:45 AMKCPD002ru/dL(High) Range:65m g/dL-99mg/dL Comments:Performed by certified power generation turbine room operator at [facility] TROP-I HIGH SENSITIVITY Ordered On:11-Feb-2024 22:45 TROP-I HIGH ZHWRRUMECWG00ap/L(Critical High) Range:0-76ng/L Comments:Results above 51 for females [...] troponin from other clinical conditions, the Fourth [place] Definition of Myocardial Infarction stresses clinical assessment and demonstration of a rise and/or fall in serial troponin results above the upper reference limit.Results of this assay method may be falsely depressed orelevated if patient is taking high doses of Biotin. CV CALL CHEM Ordered On:11-Feb-2024 22:45 CV CALL CHEMCalled Comments:Lynette veras called to and read back by DR BRICEÑO;.for analyte(s): TROP .at 2245 - 02/11/24; by [id number]. CBC W/AUTO DIFF Ordered On:11-Feb-2024 19:52 BASOPHIL #0.0110*3/uL(Normal) Range:010*3/uL-0.210*3/uL BASOPHIL %0.2%(Normal) Range:0%- 0.5% EOSINOPHIL #0.0110*3/uL(Normal) Range:010*3/uL-0.510*3/uL EOSINOPHIL %0.2%(Normal) Range:0 %-2.7% BDANWREVIS58.2%(Low) Range:42%-5 2% YRHHROZWZC38.6g/dL(Low) Range:14 g/dL-17g/dL LYMPHOCYTE #1.6510*3/uL(Normal) Range:110*3/uL-4.810*3/uL LYMPHOCYTE %33.5%(Normal) Range: 24%-44% MEAN CELL HGB31.1pg(High) Range: 27pg-31pg MEAN CELL HGB HSFAPNEZPXOC67.6g/dL(Normal) Range:33g/dL-37g/dL MEAN CELL FJVGDJ13.2fL(Normal) R daniel:80fL-94fL MONOCYTE #0.5510*3/uL(Normal) Ra nge:010*3/uL-0.810*3/uL MONOCYTE %11.2%(High) Range:0%-4 % MEAN PLATELET NUKNSC08.4fL(High) Range:7.4fL-10.4fL NEUTROPHIL #2.7110*3/uL(Normal) Range:1.810*3/uL-7.710*3/uL NEUTROPHIL %54.9%(Normal) Range: 42%-86% PLATELET ABDEB24036*3/uL(Low) Ra nge:85490*3/uL-07222*3/uL RED BLOOD CELL4.3810*6/uL(Low) R daniel:4.710*6/uL-6.110*6/uL RED CELL DISTRIBUTIO N WIDTH18.8%(High) Range:11.5%-14.5% WHITE BLOOD CELL4.9310*3/uL(Normal) Range:4.810*3/uL-10.810*3/uL COMPREHENSIVE METABOLIC PANEL Ordered On:11-Feb-2024 20:39 ALBUMIN/GLOBULIN RATIO0.8(Low) Range:1.1-2.2 ALBUMIN2.4g/dL(Low) Range:3.4g/d L-5g/dL ALKALINE PHOSPHATASE MVYOB387W/L(High) Range:50U/L-136U/L SGPT/MTV632R/L(High) Range:30U/L -65U/L Comments:Results of this assay method may be falsely depressed orelevated if patient is taking sulfasalazine. SGOT/TIK570S/L(High) Range:15U/L -37U/L Comments:Results of this assay method may be falsely depressed orelevated if patient is taking sulfasalazine. BILIRUBIN TOTAL8.4mg/dL(High) Ra nge:0mg/dL-1mg/dL BLOOD UREA EKNIPURD22vj/dL(Normal) Range:6mg/dL-20mg/dL CALCIUM7.8mg/dL(Low) Range:8.7mg /dL-10.5mg/dL VEFFVNJP32lboh/L(Low) Range:100m mol/L-108mmol/L CARBON MBRNIXW71cbts/L(Normal) R daniel:22mmol/L-32mmol/L CREATININE1.24mg/dL(High) Range: 0.6mg/dL-1mg/dL GLOMERULAR FILTRATIO [...] age is <18 years. GLOBULIN3.2g/dL(Normal) Range:1. 5g/dL-3.8g/dL LGYWQPC277jl/dL(Critical High) R daniel:65mg/dL-99mg/dL Comments:VERIFIED BY REPEATED ANALYSIS BY Kindra Virk 02/11/24Results of this assay method may be falsely depressed orelevated if patient is taking sulfasalazine. POTASSIUM4.0mmol/L(Normal) Range :3.6mmol/L-5.2mmol/L LVZINR103rdqj/L(Low) Range:133mm ol/L-145mmol/L TOTAL PROTEIN5.6g/dL(Low) Range: 6.4g/dL-8.2g/dL TROP-I HIGH SENSITIVITY Ordered On:11-Feb-2024 20:39 TROP-I HIGH WEVRTMSWRZG44kr/L(Critical High) Range:0-76ng/L Comments:Results above 51 for females [...] troponin from other clinical conditions, the Fourth [place] Definition of Myocardial Infarction stresses clinical assessment and demonstration of a rise and/or fall in serial troponin results above the upper reference limit.Results of this assay method may be falsely depressed orelevated if patient is taking high doses of Biotin. ALCOHOL Ordered On:11-Feb-2024 20:39 QESWFZN545wo/dL(High) Range:0m g/dL-10mg/dL Comments:Please review results with caution Methodology has been changed with new instrumentation 0 - 10: Should be interpreted as NEGATIVE. 11 - 50: None to mild euphoria. 51 - 100: Mild influence on vision and dark adaptation. > 80: Legal intoxication; Depression of CONSTRUCTION COORDINATOR; Increasing degree of poisoning. > 400: Fatalities reported.Results are for medical purposes only and not forlegal or employment evaluative purposes. CV CALL CHEM Ordered On:11-Feb-2024 20:39 CV CALL CHEMCalled Comments:Re sults called to and read back by KIMBERLY ROLLE RN;.for analyte(s): GLUCOSE/TROP .at 2038 - 02/11/24; by [id number]. PROTHROMBIN TIME Ordered On:11-Feb-2024 Comments :Is patient [...] with flex-stent *: 3.0 - 4.0(*) = sales team manager's suggested range PROTHROMBIN TIME ZVVPIJT53.4s(High) Range:9.9s-13.2s GLUBED Ordered On:11-Feb-2024 20:22 GLUBED>600 ABOVE HI LIMITmg/dL(Critical High) Range:65mg/dL-99mg/dL Comments:Performed by certified power generation turbine room operator at [facility] GLUBED Ordered On:10-Feb-2024 16:42 FXFBXS283ld/dL(High) Range:65m g/dL-99mg/dL Comments:Performed by certified power generation turbine room operator at [facility] LACTIC ACID Ordered On:10-Feb-2024 17:15 LACTIC ACID3.8mmol/L(High) Ran ge:0.5mmol/L-2.2mmol/L UA RFLX MICROSCOPIC CULTURE Ordered On:10-Feb-2024 Comments:Indication for cult ure: RiskForSepsis-no oth srcURINE SOURCE: Clean Catch 10-Feb-2024 15:09 UA APPEARANCECLEAR Range:CLEAR UA BILIRUBIN DIPSTICK1+(Abnormal) Range:NEGATIVE Comments:Not able to rule out false positive; No confirmatory test. UA BLOOD DIPSTICKNEGATIVE Range: NEGATIVE UA [place] YELLOW Range:YELLOW UA COMMENTVOLUME 10-12 ML UA GLUCOSE XGGJEBDS7717ee/dL(Abnormal) Range:NEGATIVE mg/dL UA KETONE DIPSTICKNEGATIVEmg/dL Range:NEGATIVE mg/dL [...] confirmed by alternate methods (i.e., [facility]MS) [facility]. Results of screen may not be usedin criminal justice, job performance or professionalcredential review, or infant custody issues. Negative [place] Level ng/ml ----- Cocaine 300 Methamphetamine (Ecstacy) 500 Cannabinoids (THC) 50 Amphetamine 1000 Barbiturates 200 Benzodiazepines 200 Opiates 300 Phencyclidine (PCP) 25 Coronavirus 2019 nCoV Bedside Ordered On:10-Feb-2024 13:49 Coronavirus 2019 nCo V BedsideNegative Range:Negative Comments:ID NOW COVID-19 assay performed on the [employer] NOW Instrument hope rapid molecular in vitro diagnostic test utilizing anisothermal nucleic acid amplification technology intendedfor the qualitative detection of nucleic acid from smjQCFC-MeT-4 viral RNA in direct nasal, nasopharyngeal orthroat [...] INFLUENZA B NEGATIVE GLUBED Ordered On:10-Feb-2024 13:24 ZSHXIG506lm/dL(Critical High) Range:65mg/dL-99mg/dL Comments:Performed by certified power generation turbine room operator at [facility] CBC W/AUTO DIFF Ordered On:10-Feb-2024 13:40 BASOPHIL #0.0110*3/uL(Normal) Range:010*3/uL-0.210*3/uL BASOPHIL %0.2%(Normal) Range:0%- 0.5% EOSINOPHIL #0.0110*3/uL(Normal) Range:010*3/uL-0.510*3/uL EOSINOPHIL %0.2%(Normal) Range:0 %-2.7% LLODBQARMN57.7%(Low) Range:42%-5 2% JWLCWYWZSC46.2g/dL(Normal) Range :14g/dL-17g/dL LYMPHOCYTE #2.1810*3/uL(Normal) Range:110*3/uL-4.810*3/uL LYMPHOCYTE %36.1%(Normal) Range: 24%-44% MEAN CELL HGB30.9pg(Normal) Rang e:27pg-31pg MEAN CELL HGB NNIIVJRQKHPD03.8g/dL(Normal) Range:33g/dL-37g/dL MEAN CELL UMIJVB66.3fL(Normal) R daniel:80fL-94fL MONOCYTE #0.6510*3/uL(Normal) Ra nge:010*3/uL-0.810*3/uL MONOCYTE %10.8%(High) Range:0%-4 % MEAN PLATELET PMEOKF99.9fL(High) Range:7.4fL-10.4fL NEUTROPHIL #3.1910*3/uL(Normal) Range:1.810*3/uL-7.710*3/uL NEUTROPHIL %52.7%(Normal) Range: 42%-86% PLATELET RZAHD93191*3/uL(Low) Ra nge:72670*3/uL-67065*3/uL RED BLOOD CELL4.6010*6/uL(Low) R daniel:4.710*6/uL-6.110*6/uL RED CELL DISTRIBUTIO N WIDTH18.6%(High) Range:11.5%-14.5% WHITE BLOOD CELL6.0410*3/uL(Normal) Range:4.810*3/uL-10.810*3/uL BASIC METABOLIC PANEL Ordered On:10-Feb-2024 14:14 BLOOD UREA TIZKKRDW82cx/dL(Normal) Range:6mg/dL-20mg/dL CALCIUM8.0mg/dL(Low) Range:8.7mg /dL-10.5mg/dL QHBAORCD54qgqm/L(Low) Range:100m mol/L-108mmol/L [place] PRWWYRF24urgs/L(Normal) R daniel:22mmol/L-32mmol/L CREATININE1.14mg/dL(High) Range: 0.6mg/dL-1mg/dL GLOMERULAR FILTRATIO [...] or if thepatient's age is <18 years. NKYHFXN231lx/dL(Critical High) R daniel:65mg/dL-99mg/dL Comments:VERIFIED BY REPEATED ANALYSIS BY Reji Apple 02/10/24Results of this assay method may be falsely depressed orelevated if patient is taking sulfasalazine. POTASSIUM4.4mmol/L(Normal) Range :3.6mmol/L-5.2mmol/L UFISES930hvne/L Range:133mmol/L- 145mmol/L Comments:VERIFIED BY REPEATED ANALYSIS BY Reji Apple 02/10/24 HEPATIC FUNCTION PANEL Ordered On:10-Feb-2024 14:14 ALBUMIN/GLOBULIN RATIO0.8(Low) Range:1.1-2.2 ALBUMIN2.5g/dL(Low) Range:3.4g/d L-5g/dL ALKALINE PHOSPHATASE BBXEU521X/L(High) Range:50U/L-136U/L SGPT/GNY101J/L(High) Range:30U/L -65U/L Comments:Results of this assay method may be falsely depressed orelevated if patient is taking sulfasalazine. SGOT/PJT249B/L(High) Range:15U/L -37U/L Comments:Results of this assay method may be falsely depressed orelevated if patient is taking sulfasalazine. BILIRUBIN DIRECT4.3mg/dL(High) R daniel:0mg/dL-0.3mg/dL BILIRUBIN INDIRECT2.8mg/dL(High) Range:0mg/dL-0.7mg/dL BILIRUBIN TOTAL7.1mg/dL(High) Ra nge:0mg/dL-1mg/dL GLOBULIN3.0g/dL(Normal) Range:1. 5g/dL-3.8g/dL TOTAL PROTEIN5.5g/dL(Low) Range: 6.4g/dL-8.2g/dL TROP-I HIGH SENSITIVITY Ordered On:10-Feb-2024 14:14 TROP-I HIGH ROQVHZMSVAS57cj/L Range:0-76ng/L Comments:Results above 51 for females and [...] troponin from other clinical conditions, the Fourth [place] Definition of Myocardial Infarction stresses clinical assessment and demonstration of a rise and/or fall in serial troponin results above the upper reference limit.Results of this assay method may be falsely depressed orelevated if patient is taking high doses of Biotin. ALCOHOL Ordered On:10-Feb-2024 14:14 PRADWDB991nz/dL(High) Range:0m g/dL-10mg/dL Comments:Please review results with caution Methodology has been changed with new instrumentation 0 - 10: Should be interpreted as NEGATIVE. 11 - 50: None to mild euphoria. 51 - 100: Mild influence on vision and dark adaptation. > 80: Legal intoxication; Depression of CONSTRUCTION COORDINATOR; Increasing degree of poisoning. > 400: Fatalities reported.Results are for medical purposes only and not forlegal or employment evaluative purposes. CV CALL CHEM Ordered On:10-Feb-2024 14:14 CV CALL CHEMCalled Comments:Re sults called to and read back by RAMU SOTO RN;.for analyte(s): GLU .at 1405 - 02/10/24; by [id number]. LACTIC ACID Ordered On:10-Feb-2024 14:05 LACTIC ACID5.7mmol/L (Critical High) Range:0.5mmol/L-2.2mmol/L Comments:Results called to and read back by RAMU SOTO RN;1405, 02/10/24, Reji Apple. TROP-I HIGH SENSITIVITY Ordered On:21-Jan-2024 17:24 TROP-I HIGH GXOUBLRUXUW14wk/L R daniel:0-76ng/L Comments:Results above 51 for females [...] troponin from other clinical conditions, the Fourth [place] Definition of Myocardial Infarction stresses clinical assessment and demonstration of a rise and/or fall in serial troponin results above the upper reference limit.Results of this assay method may be falsely depressed orelevated if patient is taking high doses of Biotin. CBC W/AUTO DIFF Ordered On:21-Jan-2024 15:39 BASOPHIL #0.0610*3/uL(Normal) R daniel:010*3/uL-0.210*3/uL BASOPHIL %0.7%(High) Range:0%-0. 5% EOSINOPHIL #0.0410*3/uL(Normal) Range:010*3/uL-0.510*3/uL EOSINOPHIL %0.5%(Normal) Range:0 %-2.7% WUKBPVIPJR23.6%(Low) Range:42%-5 2% TBKRJIMSPH86.0g/dL(Low) Range:14 g/dL-17g/dL LYMPHOCYTE #2.1010*3/uL(Normal) Range:110*3/uL-4.810*3/uL LYMPHOCYTE %24.7%(Normal) Range: 24%-44% MEAN CELL HGB30.0pg(Normal) Rang e:27pg-31pg MEAN CELL HGB KLJWRKASMDMJ21.8g/dL(Low) Range:33g/dL-37g/dL MEAN CELL YEUOUA52.5fL(Normal) R daniel:80fL-94fL MONOCYTE #0.6510*3/uL(Normal) Ra nge:010*3/uL-0.810*3/uL MONOCYTE %7.6%(High) Range:0%-4% MEAN PLATELET VOLUME9.8fL(Normal) Range:7.4fL-10.4fL NEUTROPHIL #5.6610*3/uL(Normal) Range:1.810*3/uL-7.710*3/uL NEUTROPHIL %66.5%(Normal) Range: 42%-86% PLATELET DNDPT48123*3/uL(Normal) Range:17392*3/uL-35971*3/uL RED BLOOD CELL4.3310*6/uL(Low) R daniel:4.710*6/uL-6.110*6/uL RED CELL DISTRIBUTIO N WIDTH16.2%(High) Range:11.5%-14.5% WHITE BLOOD CELL8.5110*3/uL(Normal) Range:4.810*3/uL-10.810*3/uL BASIC METABOLIC PANEL Ordered On:21-Jan-2024 16:07 BLOOD UREA DQTJDIZG2dt/dL(Normal) Range:6mg/dL-20mg/dL CALCIUM8.5mg/dL(Low) Range:8.7mg /dL-10.5mg/dL IAZYSPIB389eqrg/L(Normal) Range: 100mmol/L-108mmol/L CARBON TIMBTUF95vhbs/L(Normal) R daniel:22mmol/L-32mmol/L CREATININE1.12mg/dL(High) Range: 0.6mg/dL-1mg/dL GLOMERULAR FILTRATIO [...] or if thepatient's age is <18 years. JLGPXZR375du/dL(High) Range:65mg /dL-99mg/dL Comments:Results of this assay method may be falsely depressed orelevated if patient is taking sulfasalazine. POTASSIUM3.5mmol/L(Low) Range:3. 6mmol/L-5.2mmol/L IKLLXC274bbzq/L(Normal) Range:13 3mmol/L-145mmol/L HEPATIC FUNCTION PANEL Ordered On:21-Jan-2024 16:07 ALBUMIN/GLOBULIN RATIO0.9(Low) Range:1.1-2.2 ALBUMIN3.3g/dL(Low) Range:3.4g/d L-5g/dL ALKALINE PHOSPHATASE MGDAD734Z/L(Normal) Range:50U/L-136U/L SGPT/ALT42U/L(Normal) Range:30U/ L-65U/L Comments:Results of this assay method may be falsely depressed orelevated if patient is taking sulfasalazine. SGOT/AST39U/L(High) Range:15U/L- 37U/L Comments:Results of this assay method may be falsely depressed orelevated if patient is taking sulfasalazine. BILIRUBIN DIRECT0.1mg/dL(Normal) Range:0mg/dL-0.3mg/dL BILIRUBIN TOTAL0.4mg/dL(Normal) Range:0mg/dL-1mg/dL GLOBULIN3.5g/dL(Normal) Range:1. 5g/dL-3.8g/dL TOTAL PROTEIN6.8g/dL(Normal) Ran ge:6.4g/dL-8.2g/dL BILIRUBIN INDIRECT0.3mg/dL(Normal) Range:0mg/dL-0.7mg/dL LIPASE Ordered On:21-Jan-2024 16:07 DTQZSM63A/L(Low) Range:16U/L-77 U/L Comments:New Reference Ranges of 16-77 U/L please reviewrevised from 73-393 U/L on 01/02/2023 MAGNESIUM Ordered On:21-Jan-2024 16:07 MAGNESIUM1.7mg/dL(Low) Range:1. 8mg/dL-2.4mg/dL NT PRO-BRAIN NATRIURETIC PEPTI Ordered On:21-Jan-2024 16:07 NT PRO-BRAIN NATRIUR ETIC ZRPYC2371ha/mL(High) Range:0pg/mL-125pg/mL Comments:Results of this assay method may be falsely depressed orelevated if patient is taking high doses of Biotin. TROP-I HIGH SENSITIVITY Ordered On:21-Jan-2024 16:07 TROP-I HIGH BUESKDVEPBT35qz/L R daniel:0-76ng/L Comments:Results above 51 for females [...] troponin from other clinical conditions, the Fourth [place] Definition of Myocardial Infarction stresses clinical assessment and demonstration of a rise and/or fall in serial troponin results above the upper reference limit.Results of this assay method may be falsely depressed orelevated if patient is taking high doses of Biotin. ALCOHOL Ordered On:21-Jan-2024 16:07 YSTIAGY888pt/dL(High) Range:0mg /dL-10mg/dL Comments:Please review results with caution Methodology has been changed with new instrumentation 0 - 10: Should be interpreted as NEGATIVE. 11 - 50: None to mild euphoria. 51 - 100: Mild influence on vision and dark adaptation. > 80: Legal intoxication; Depression of CONSTRUCTION COORDINATOR; Increasing degree of poisoning. > 400: Fatalities [...] with flex-stent *: 3.0 - 4.0(*) = sales team manager's suggested range PROTHROMBIN TIME WLJAKOG18.7s(Normal) Range:9.9s-13.2s Vital Signs 12-Sep-2024 07:17 TEMP IFGDWFG07.7c Comments:36.7 Pulse92/min Comments:92 Respiratory Rate18/min Comments: 18 O2 SAT96% Comments:96 BP Gverhemy015ev[Hg] Comments:13 5 BP Brtkddebo82vg[Hg] Comments:74 12-Sep-2024 03:47 TEMP OLYPXHD59i Comments:37.0 Pulse99/min Comments:99 Respiratory Rate18/min Comments: 18 O2 SAT95% Comments:95 BP Dxuhkazb908ah[Hg] Comments:15 9 BP Cldsicifq51lj[Hg] Comments:83 11-Sep-2024 23:53 TEMP RWHXKVA10.5c Comments:36.5 Pulse85/min Comments:85 Respiratory Rate18/min Comments: 18 O2 SAT97% Comments:97 BP Wuhfjsjd657hd[Hg] Comments:13 4 BP Jxoeyexbf29bc[Hg] Comments:72 11-Sep-2024 19:19 TEMP XNRLTYZ17b Comments:37.0 Pulse86/min Comments:86 Respiratory Rate18/min Comments: 18 O2 SAT98% Comments:98 BP Xjigpvag971bm[Hg] Comments:14 6 BP Sgwlubphv70uf[Hg] Comments:82 11-Sep-2024 16:41 TEMP JCYOYMZ15.4c Comments:36.4 Pulse88/min Comments:88 Respiratory Rate20/min Comments: 20 O2 SAT98% Comments:98 BP Awdppruu503xc[Hg] Comments:13 6 BP Gylybfism35dd[Hg] Comments:65 11-Sep-2024 15:21 TEMP PZKXHQQ49.9c Comments:36.9 Pulse90/min Comments:90 Respiratory Rate16/min Comments: 16 O2 SAT97% Comments:97 BP Taeoygdw837go[Hg] Comments:13 3 BP Xcognejdb56ia[Hg] Comments:83 11-Sep-2024 10:16 TEMP ZRBNJMP95.5c Comments:36.5 Pulse92/min Comments:92 Respiratory Rate16/min Comments: 16 O2 SAT98% Comments:98 BP Knvznmqp512zk[Hg] Comments:15 1 BP Snbfigonc69ng[Hg] Comments:89 11-Sep-2024 07:28 TEMP OLWDKTT54.5c Comments:36.5 Pulse87/min Comments:87 Respiratory Rate18/min Comments: 18 O2 SAT98% Comments:98 BP Hgitjrdj662ab[Hg] Comments:13 6 BP Sujxvxhbu35bd[Hg] Comments:78 11-Sep-2024 07:05 Pulse80/min Comments:80 O2 SAT96% Comments:96 11-Sep-2024 06:35 Pulse84/min Comments:84 O2 SAT98% Comments:98 11-Sep-2024 06:15 Pulse87/min Comments:87 O2 SAT98% Comments:98 11-Sep-2024 06:00 Pulse87/min Comments:87 11-Sep-2024 05:30 Pulse84/min Comments:84 O2 SAT97% Comments:97 11-Sep-2024 05:28 Pulse86/min Comments:86 Respiratory Rate18/min Comments: 18 O2 SAT95% Comments:95 BP Xwndxyln768ck[Hg] Comments:10 6 BP Xwguvzdvf56rb[Hg] Comments:65 Oxygen delivery devices: Comment s:Room air 11-Sep-2024 05:00 Pulse88/min Comments:88 O2 SAT99% Comments:99 11-Sep-2024 04:40 Pulse90/min Comments:90 O2 SAT98% Comments:98 11-Sep-2024 04:31 Yyfgryiiqfs62.7f Comments:97.7 Pulse91/min Comments:91 Respiratory Rate16/min Comments: 16 O2 SAT99% Comments:99 BP Tmxkzfti561ax[Hg] Comments:12 8 BP Nmlmedpyn41hl[Hg] Comments:75 Oxygen delivery devices: Comment s:Room air Height5.0680843[ft_us] Comments: 5 Gkkcdp91.409kg Comments:82.409 11-Sep-2024 04:31 BMI33.2kg/m2 Comments:33.2 10-Sep-2024 15:09 TEMP KWUAJUM49.6c Comments:36.6 Pulse87/min Comments:87 O2 SAT99% Comments:99 BP Djlhyelj853zb[Hg] Comments:13 0 BP Uiblngatr08yi[Hg] Comments:70 10-Sep-2024 10:57 TEMP NQELPEQ60.5c Comments:36.5 Pulse82/min Comments:82 Respiratory Rate18/min Comments: 18 O2 SAT93% Comments:93 BP Qxojlwir581kv[Hg] Comments:13 5 BP Gmhzqfwxp02hl[Hg] Comments:74 10-Sep-2024 07:18 TEMP BECMTVA31.9c Comments:36.9 Pulse88/min Comments:88 Respiratory Rate17/min Comments: 17 O2 SAT98% Comments:98 BP Cyeapumd658xt[Hg] Comments:10 9 BP Kmrdjgaos58nf[Hg] Comments:68 10-Sep-2024 06:00 Pulse87/min Comments:87 O2 SAT97% Comments:97 BP Tyzrqxro02mc[Hg] Comments:98 BP Tbbptxuhj79qj[Hg] Comments:55 10-Sep-2024 01:03 Pulse75/min Comments:75 O2 SAT84% Comments:84 BP Njwlauty86ky[Hg] Comments:91 BP Juajqerxk20pw[Hg] Comments:54 09-Sep-2024 23:34 Pulse75/min Comments:75 Respiratory Rate16/min Comments: 16 O2 SAT97% Comments:97 BP Mmoyweyi85yl[Hg] Comments:96 BP Ljrxwrypz30qv[Hg] Comments:63 09-Sep-2024 19:31 TEMP VIKGBRP25.4c Comments:36.4 Pulse91/min Comments:91 Respiratory Rate16/min Comments: 16 O2 SAT96% Comments:96 BP Noyfuqrq746ff[Hg] Comments:15 1 BP Egoffdqyd64vg[Hg] Comments:87 09-Sep-2024 17:30 Pulse92/min Comments:92 O2 SAT99% Comments:99 BP Ihpkbxfe223kl[Hg] Comments:10 1 BP Ykmyvtvcr42az[Hg] Comments:62 09-Sep-2024 17:30 Dsjthlbpebc51.3f Comments:98.3 Respiratory Rate16/min Comments: 16 09-Sep-2024 13:15 Tmkpchkvwvf31.2f Comments:98.2 Pkdph040/min Comments:103 Respiratory Rate17/min Comments: 17 O2 SAT94% Comments:94 BP Cxgufuvf552sw[Hg] Comments:10 3 BP Iqxblaqcn18il[Hg] Comments:65 Oxygen delivery devices: Comment s:Room air Height5.0595062[ft_us] Comments: 5 Bxxeyf98.455kg Comments:80.455 09-Sep-2024 13:15 BMI29.5kg/m2 Comments:29.5 05-Sep-2024 11:02 TEMP MQCJDTT67.7c Comments:36.7 Pulse89/min Comments:89 Respiratory Rate16/min Comments: 16 O2 SAT94% Comments:94 BP Jlmfahbj197cm[Hg] Comments:17 0 BP Xztsrgnvi05wm[Hg] Comments:93 05-Sep-2024 07:21 TEMP SFWQDYY12.6c Comments:36.6 Pulse81/min Comments:81 Respiratory Rate16/min Comments: 16 O2 SAT96% Comments:96 BP Dqiizsie417se[Hg] Comments:15 2 BP Ixxmxzzuf18ld[Hg] Comments:82 05-Sep-2024 04:31 TEMP CIWCBLN34.4c Comments:36.4 Pulse74/min Comments:74 Respiratory Rate17/min Comments: 17 O2 SAT94% Comments:94 BP Zfevnepc974nq[Hg] Comments:11 3 BP Ctkalmqaj98tg[Hg] Comments:70 05-Sep-2024 01:11 TEMP YTNHZAG29.3c Comments:36.3 Pulse77/min Comments:77 Respiratory Rate16/min Comments: 16 O2 SAT94% Comments:94 BP Zcngjqfz111pp[Hg] Comments:11 6 BP Wqfhvbuye18te[Hg] Comments:54 04-Sep-2024 23:01 Pulse88/min Comments:88 Respiratory Rate13/min Comments: 13 O2 SAT97% Comments:97 BP Gbjbfwey157jf[Hg] Comments:14 6 BP Wfmvkunen96wc[Hg] Comments:77 04-Sep-2024 21:45 Pulse83/min Comments:83 04-Sep-2024 20:15 Pulse84/min Comments:84 O2 SAT95% Comments:95 04-Sep-2024 20:00 Pulse83/min Comments:83 BP Fsulhlai669qw[Hg] Comments:12 5 BP Yebybewnq18zp[Hg] Comments:65 04-Sep-2024 19:40 Pulse84/min Comments:84 O2 SAT95% Comments:95 04-Sep-2024 19:05 Pulse87/min Comments:87 O2 SAT97% Comments:97 04-Sep-2024 19:00 Pulse88/min Comments:88 BP Gocjepsj877ty[Hg] Comments:12 8 BP Wrffuisun38ne[Hg] Comments:63 04-Sep-2024 18:00 Pulse90/min Comments:90 BP Zhttydjz439sf[Hg] Comments:10 9 BP Enyukwcza15vm[Hg] Comments:59 04-Sep-2024 17:25 Pulse93/min Comments:93 O2 SAT94% Comments:94 04-Sep-2024 17:23 BP Yfebktje875sr[Hg] Comments:12 5 BP Ztfeempzt05wk[Hg] Comments:64 04-Sep-2024 17:00 Pulse98/min Comments:98 O2 SAT97% Comments:97 BP Zsasxvqh064uc[Hg] Comments:11 9 BP Matgsypfv87wl[Hg] Comments:71 04-Sep-2024 16:45 Pulse93/min Comments:93 Respiratory Rate16/min Comments: 16 O2 SAT98% Comments:98 04-Sep-2024 16:30 Pulse97/min Comments:97 O2 SAT99% Comments:99 04-Sep-2024 16:28 BP Ehwnqscg771kx[Hg] Comments:10 9 BP Rjhslimum47oi[Hg] Comments:56 04-Sep-2024 16:11 Gwwlxbtfnha38.2f Comments:98.2 Pulse93/min Comments:93 Respiratory Rate18/min Comments: 18 O2 SAT97% Comments:97 BP Zenjiyfh049li[Hg] Comments:10 4 BP Wofbvjcqq32fx[Hg] Comments:55 Oxygen delivery devices: Comment s:Room air Height5.4334143[ft_us] Comments: 5 Ymbpft09.7kg Comments:80.700 04-Sep-2024 16:11 BMI29.6kg/m2 Comments:29.6 30-Aug-2024 03:00 Pulse83/min Comments:83 Respiratory Rate22/min Comments: 22 O2 SAT96% Comments:96 BP Zgdjqjsh100yg[Hg] Comments:12 1 BP Pwntjxgrp94ah[Hg] Comments:72 30-Aug-2024 02:25 Pulse86/min Comments:86 O2 SAT98% Comments:98 30-Aug-2024 02:24 BP Xqtlwwht516qf[Hg] Comments:14 6 BP Jnnsnndrp71on[Hg] Comments:81 30-Aug-2024 02:20 Uvjftkwnmqw75.2f Comments:98.2 Pulse84/min Comments:84 Respiratory Rate19/min Comments: 19 O2 BKW233% Comments:100 BP Dozkpnpb095rh[Hg] Comments:14 6 BP Xzwcbzfbx18sn[Hg] Comments:81 Height5.7565633[ft_us] Comments: 5 Cpxevh28.4kg Comments:86.400 30-Aug-2024 02:20 BMI31.6kg/m2 Comments:31.6 29-Aug-2024 12:09 TEMP NRXVUIZ89.7c Comments:36.7 Pulse83/min Comments:83 Respiratory Rate16/min Comments: 16 O2 SAT97% Comments:97 BP Vnuuwhvw210op[Hg] Comments:16 7 BP Uwlpcfnlz40ru[Hg] Comments:88 29-Aug-2024 09:54 Pulse78/min Comments:78 Respiratory Rate16/min Comments: 16 O2 SAT97% Comments:97 BP Pysivflb832fb[Hg] Comments:11 6 BP Asunsebyr98pl[Hg] Comments:54 29-Aug-2024 07:09 TEMP WTDAGPQ54.7c Comments:36.7 Pulse75/min Comments:75 Respiratory Rate16/min Comments: 16 O2 SAT97% Comments:97 BP Nmxpajfe038xn[Hg] Comments:14 2 BP Jmoqwcdep27ie[Hg] Comments:81 29-Aug-2024 06:49 O2 SAT97% Comments:97 Inhaled oxygen nidzdztacavrz43% Comments:21 Oxygen delivery devices: Comment s:Room air 29-Aug-2024 05:48 TEMP FKJQECG78.8c Comments:36.8 Pulse75/min Comments:75 Respiratory Rate14/min Comments: 14 O2 SAT97% Comments:97 BP Dbkuqpll360rn[Hg] Comments:13 1 BP Hjylmvovp87bs[Hg] Comments:73 29-Aug-2024 TEMP UXZKTTN01.7c Comments:36.7 Pulse76/min Comments:76 Respiratory Rate16/min Comments: 16 O2 SAT98% Comments:98 BP Zaicztma234mt[Hg] Comments:15 9 BP Eekfollua77yh[Hg] Comments:87 28-Aug-2024 20:36 TEMP TQHNRDI71.6c Comments:36.6 Pulse67/min Comments:67 Respiratory Rate18/min Comments: 18 O2 SAT97% Comments:97 BP Fodvjfpf420og[Hg] Comments:12 3 BP Ldobmecem59za[Hg] Comments:67 28-Aug-2024 15:33 TEMP OPAKTNB73.3c Comments:36.3 Pulse65/min Comments:65 Respiratory Rate14/min Comments: 14 O2 SAT97% Comments:97 BP Inpfqieo990jr[Hg] Comments:10 4 BP Zmynxxois72ia[Hg] Comments:66 28-Aug-2024 11:33 TEMP HBLHJSJ09.9c Comments:36.9 Pulse80/min Comments:80 Respiratory Rate14/min Comments: 14 O2 SAT96% Comments:96 BP Hdfibsnj291tl[Hg] Comments:10 7 BP Bmizvybiz84ac[Hg] Comments:64 28-Aug-2024 10:59 Pulse83/min Comments:83 BP Ectcszfl75hd[Hg] Comments:99 BP Fsszdimjl29gy[Hg] Comments:59 28-Aug-2024 10:37 TEMP OUEPJDR07.4c Comments:36.4 Pulse77/min Comments:77 Respiratory Rate14/min Comments: 14 O2 SAT96% Comments:96 BP Dvmhlnjm51ya[Hg] Comments:79 BP Fqrjywblx08lp[Hg] Comments:40 28-Aug-2024 07:26 O2 SAT98% Comments:98 Oxygen delivery devices: Comment s:Room air 28-Aug-2024 07:19 TEMP BKZJBZV51.1c Comments:37.1 Enjtc449/min Comments:107 Respiratory Rate14/min Comments: 14 O2 SAT95% Comments:95 BP Eatwnifx964fu[Hg] Comments:19 7 BP Cdfcfagyo339kh[Hg] Comments:1 30 28-Aug-2024 05:54 TEMP KZVVVOS83.7c Comments:36.7 Rcmmm002/min Comments:100 Respiratory Rate16/min Comments: 16 O2 SAT96% Comments:96 BP Qyyrdoiv312ij[Hg] Comments:18 4 BP Enlsactgs814iy[Hg] Comments:1 19 27-Aug-2024 23:42 TEMP BRORTYI97.3c Comments:36.3 Pulse92/min Comments:92 Respiratory Rate16/min Comments: 16 O2 SAT97% Comments:97 BP Ukecdvcb338ay[Hg] Comments:17 9 BP Rqdylymhk32zu[Hg] Comments:98 Wfbgsu78.4kg Comments:81.400 27-Aug-2024 23:42 BMI29.8kg/m2 Comments:29.8 27-Aug-2024 19:38 TEMP GFUUXUP49.6c Comments:36.6 Lwwom308/min Comments:102 Respiratory Rate16/min Comments: 16 O2 SAT97% Comments:97 BP Cubvvmqj998rx[Hg] Comments:15 4 BP Ansfmsjge30mx[Hg] Comments:95 27-Aug-2024 15:10 TEMP RRUQEZJ23.6c Comments:36.6 Pulse99/min Comments:99 Respiratory Rate17/min Comments: 17 O2 SAT97% Comments:97 BP Qigyvmmn970xo[Hg] Comments:16 1 BP Iskktrgka31yb[Hg] Comments:89 27-Aug-2024 07:41 TEMP FTGRLIO02.5c Comments:36.5 Pulse86/min Comments:86 Respiratory Rate18/min Comments: 18 O2 SAT97% Comments:97 BP Zggiunna922vm[Hg] Comments:14 6 BP Lfktlbcgt86hl[Hg] Comments:83 27-Aug-2024 03:57 TEMP DFIWPZA11.6c Comments:36.6 Pulse82/min Comments:82 Respiratory Rate17/min Comments: 17 O2 SAT95% Comments:95 BP Zfdsyizz984zz[Hg] Comments:13 7 BP Fyujaccba31pi[Hg] Comments:85 26-Aug-2024 23:22 TEMP TOIRKPQ84.4c Comments:36.4 Pulse89/min Comments:89 Respiratory Rate17/min Comments: 17 O2 SAT97% Comments:97 BP Aemxthaw421ti[Hg] Comments:13 0 BP Culnekdqw23jm[Hg] Comments:76 Cddtrx71.04kg Comments:83.040 26-Aug-2024 19:38 TEMP RUDVDGU07.8c Comments:36.8 Pulse82/min Comments:82 Respiratory Rate17/min Comments: 17 O2 SAT96% Comments:96 BP Jtheyqcw623yc[Hg] Comments:13 2 BP Hkysqviqs43hl[Hg] Comments:71 26-Aug-2024 16:01 TEMP JLEAHLX58.7c Comments:36.7 Pulse84/min Comments:84 Respiratory Rate18/min Comments: 18 O2 SAT93% Comments:93 BP Axhlllnb623kx[Hg] Comments:13 5 BP Esboohvbd73yz[Hg] Comments:70 26-Aug-2024 11:02 TEMP QZGJWES02.5c Comments:36.5 Pulse91/min Comments:91 Respiratory Rate18/min Comments: 18 O2 SAT95% Comments:95 BP Iiyfwaco350gn[Hg] Comments:13 5 BP Wviunhpnm38zj[Hg] Comments:72 26-Aug-2024 08:32 TEMP CPYSNNP04.8c Comments:36.8 Pulse92/min Comments:92 Respiratory Rate20/min Comments: 20 O2 SAT93% Comments:93 BP Ypowgabo559pu[Hg] Comments:13 7 BP Ixxwgilpa13zi[Hg] Comments:72 26-Aug-2024 01:10 Respiratory Rate17/min Comments: 17 26-Aug-2024 01:00 Pulse83/min Comments:83 O2 SAT97% Comments:97 BP Qgzvhupl517iv[Hg] Comments:11 9 BP Dbhxrctnj46pc[Hg] Comments:58 26-Aug-2024 00:12 BP Geyubbge424wm[Hg] Comments:10 6 BP Crcavyezc77hr[Hg] Comments:58 26-Aug-2024 00:10 Pulse85/min Comments:85 Respiratory Rate17/min Comments: 17 O2 SAT96% Comments:96 25-Aug-2024 23:40 Pulse90/min Comments:90 Respiratory Rate12/min Comments: 12 O2 SAT97% Comments:97 25-Aug-2024 23:39 BP Ehthgxgq371pk[Hg] Comments:11 4 BP Ohenxrjoh49up[Hg] Comments:61 25-Aug-2024 23:34 Exavcwwjswv59.9f Comments:98.9 Pulse91/min Comments:91 Respiratory Rate18/min Comments: 18 Height5.5403758[ft_us] Comments: 5 Ovqkca90.727kg Comments:77.727 07-Jul-2024 16:09 Pulse78/min Comments:78 Respiratory Rate16/min Comments: 16 O2 SAT98% Comments:98 BP Uplliyfx503ow[Hg] Comments:12 7 BP Obmvuxxnw58nc[Hg] Comments:69 Oxygen delivery devices: Comment s:Room air 07-Jul-2024 14:24 Pulse72/min Comments:72 O2 SFY643% Comments:100 BP Rgsgyxca074hd[Hg] Comments:11 6 BP Nmcgyqrem36uj[Hg] Comments:64 07-Jul-2024 14:09 Pulse69/min Comments:69 O2 SAT93% Comments:93 BP Fffaarqm86ag[Hg] Comments:98 BP Lifizvlwx17af[Hg] Comments:52 07-Jul-2024 11:41 Zyilwlzdzjg75i Comments:98.0 Pulse80/min Comments:80 Respiratory Rate14/min Comments: 14 O2 SAT97% Comments:97 Height in:5in Comments:5 BP Hnekzjba227gz[Hg] Comments:13 2 BP Mylefpvpf89en[Hg] Comments:67 Oxygen delivery devices: Comment s:Room air Height5[ft_us] Comments:5 Xkjgqv28.5kg Comments:83.500 07-Jul-2024 11:41 BMI30.6kg/m2 Comments:30.6 19-Apr-2024 01:24 Pulse83 Comments:83 Respiratory Rate19 Comments:19 O2 SAT98% Comments:98 BP Tmqurnwg414ew[Hg] Comments:10 0 BP Mphrmoxgs64hd[Hg] Comments:58 18-Apr-2024 22:11 Kybvurtcbam35.1f Comments:98.1 Pulse94 Comments:94 Respiratory Rate18 Comments:18 O2 SAT99% Comments:99 Height in:5in Comments:5 BP Zogvknmc610ni[Hg] Comments:12 8 BP Crpfedmye23md[Hg] Comments:60 Height5[ft_us] Comments:5 Mzwjto50.8kg Comments:82.800 18-Apr-2024 22:11 BMI30.4kg/m2 Comments:30.4 19-Feb-2024 11:15 Utjthvllcmh01.8c Comments:36.8 Pulse73 Comments:73 Respiratory Rate18 Comments:18 O2 SAT96% Comments:96 BP Rlxkzwdv923up[Hg] Comments:12 9 BP Oomjkrbdh41qw[Hg] Comments:72 19-Feb-2024 07:30 Dbxhkzgqokv63.9c Comments:36.9 Pulse71 Comments:71 Respiratory Rate18 Comments:18 O2 SAT95% Comments:95 BP Oatthbsu096rc[Hg] Comments:14 7 BP Kfwroykqc27ay[Hg] Comments:77 19-Feb-2024 06:43 Pulse76 Comments:76 BP Uwyvstzb271th[Hg] Comments:12 5 BP Kbxlyvhhn41qk[Hg] Comments:73 19-Feb-2024 03:44 Okprncqzpyc21.8c Comments:36.8 Pulse66 Comments:66 Respiratory Rate18 Comments:18 O2 SAT96% Comments:96 BP Fpjalmnu278ih[Hg] Comments:18 2 BP Prbcqymdz318oh[Hg] Comments:1 16 18-Feb-2024 23:40 Rxltucqkurw33.8c Comments:36.8 Pulse73 Comments:73 Respiratory Rate16 Comments:16 O2 SAT95% Comments:95 BP Vtokazhv824dt[Hg] Comments:12 5 BP Cbpogdcrj95oc[Hg] Comments:65 18-Feb-2024 19:59 Kqcvpkjvkxi79.1c Comments:37.1 Pulse70 Comments:70 Respiratory Rate18 Comments:18 O2 SAT94% Comments:94 BP Ivtwtyfb959iz[Hg] Comments:14 6 BP Rrovlpykq32pw[Hg] Comments:75 18-Feb-2024 16:24 Vkmrnwdcrrm88.9c Comments:36.9 Pulse68 Comments:68 Respiratory Rate18 Comments:18 O2 SAT94% Comments:94 BP Wxeglevf667hi[Hg] Comments:12 2 BP Ubolbwhpd20xa[Hg] Comments:70 18-Feb-2024 12:10 Height in:5in Comments:5 Height5[ft_us] Comments:5 Uhbsmo158fj Comments:172 18-Feb-2024 11:11 Kgfvftiyvhd45n Comments:37.0 Pulse74 Comments:74 Respiratory Rate18 Comments:18 O2 SAT99% Comments:99 BP Jiywfdjb076eg[Hg] Comments:12 8 BP Muyhpfvcl23ki[Hg] Comments:69 18-Feb-2024 07:30 Ezvqbbeoetq95.5c Comments:36.5 Pulse69 Comments:69 Respiratory Rate18 Comments:18 O2 SAT97% Comments:97 BP Pmwnqhrm943lh[Hg] Comments:17 3 BP Xxnczhfyi78ag[Hg] Comments:80 18-Feb-2024 03:22 Ipocqkodalq19.6c Comments:36.6 Pulse64 Comments:64 Respiratory Rate18 Comments:18 O2 QOZ681% Comments:100 BP Duqjkcbw852xj[Hg] Comments:14 3 BP Yufeqpyex03vi[Hg] Comments:82 17-Feb-2024 23:00 Uhjodfdlnga25.7c Comments:36.7 Jsidv822 Comments:111 Respiratory Rate18 Comments:18 O2 SAT97% Comments:97 BP Akyaiuml986ah[Hg] Comments:14 2 BP Qifcaqivg62rt[Hg] Comments:75 17-Feb-2024 19:15 Oatoxduujdm97.1c Comments:37.1 Pulse70 Comments:70 Respiratory Rate17 Comments:17 O2 SAT97% Comments:97 BP Ixlhqmwu151nh[Hg] Comments:13 4 BP Gdrvzqqxa33tq[Hg] Comments:73 17-Feb-2024 15:54 Ilkfxebmnrw01a Comments:37.0 Pulse84 Comments:84 Respiratory Rate18 Comments:18 O2 SAT95% Comments:95 BP Xlnbdhaj314ck[Hg] Comments:12 5 BP Xbudwcsua72ku[Hg] Comments:76 17-Feb-2024 11:33 Clkbegszdiv57w Comments:37.0 Pulse70 Comments:70 Respiratory Rate18 Comments:18 O2 SAT96% Comments:96 BP Tgpqhyry969qp[Hg] Comments:13 0 BP Gdliotxnb09xb[Hg] Comments:74 17-Feb-2024 07:41 Wvolgyoozph22.1c Comments:37.1 Pulse82 Comments:82 Respiratory Rate18 Comments:18 O2 SAT96% Comments:96 BP Xgpvlaib688jk[Hg] Comments:16 6 BP Oeztnzlul72nc[Hg] Comments:87 17-Feb-2024 03:53 Xuziqjticsy66.6c Comments:36.6 Pulse68 Comments:68 Respiratory Rate17 Comments:17 O2 SAT97% Comments:97 BP Slqlofxa743vf[Hg] Comments:15 6 BP Xxraomshm73vl[Hg] Comments:80 17-Feb-2024 00:07 Pulse62 Comments:62 O2 SAT99% Comments:99 BP Sfoiuslh678xb[Hg] Comments:15 2 BP Nxdbwsvzs50xp[Hg] Comments:80 17-Feb-2024 00:02 Raxsswknwin07e Comments:37.0 Pulse77 Comments:77 Respiratory Rate17 Comments:17 O2 SAT96% Comments:96 BP Ifsxhcak842mi[Hg] Comments:17 1 BP Mwbxpabrp60cb[Hg] Comments:82 16-Feb-2024 19:21 Ynmkudlijor14.6c Comments:36.6 Pulse68 Comments:68 Respiratory Rate18 Comments:18 O2 SAT98% Comments:98 BP Onprlwqk542ge[Hg] Comments:13 1 BP Wjpfewcxm49tz[Hg] Comments:68 16-Feb-2024 15:49 Axinwwefgvu48.4c Comments:36.4 Pulse70 Comments:70 Respiratory Rate18 Comments:18 O2 SAT99% Comments:99 BP Xqoiufoa404og[Hg] Comments:10 7 BP Fnavajrtt74ea[Hg] Comments:60 16-Feb-2024 11:40 Nrlksqucofs81.6c Comments:36.6 Pulse70 Comments:70 Respiratory Rate16 Comments:16 O2 SAT98% Comments:98 BP Yrrpjivs567fe[Hg] Comments:13 1 BP Vmyxrpive96ic[Hg] Comments:71 16-Feb-2024 08:25 Pvpadjzhvhz73.5c Comments:36.5 Pulse74 Comments:74 Respiratory Rate16 Comments:16 O2 SAT99% Comments:99 BP Kkizwtqe868qa[Hg] Comments:14 1 BP Scxobwuca96ka[Hg] Comments:77 16-Feb-2024 05:19 Lcfyxtahzdd18.1c Comments:36.1 Pulse59 Comments:59 Respiratory Rate18 Comments:18 O2 SAT96% Comments:96 BP Byowevtj843gr[Hg] Comments:14 5 BP Vlptjipna71dt[Hg] Comments:72 15-Feb-2024 21:39 Xevcvmgswws47.7c Comments:36.7 Pulse68 Comments:68 Respiratory Rate18 Comments:18 O2 SAT99% Comments:99 BP Bztlhzgo761dt[Hg] Comments:13 8 BP Aibbsjifv89vd[Hg] Comments:67 15-Feb-2024 21:00 Oasqi868 Comments:106 Respiratory Rate38 Comments:38 O2 SAT98% Comments:98 BP Fezctutj558bu[Hg] Comments:10 8 BP Wrlwqkecf36jw[Hg] Comments:58 15-Feb-2024 20:00 Pulse65 Comments:65 Respiratory Rate14 Comments:14 O2 SAT98% Comments:98 BP Zodfykbd840sm[Hg] Comments:10 9 BP Exkgfmues13tx[Hg] Comments:59 15-Feb-2024 19:31 Swbswxghxyl09.1f Comments:98.1 15-Feb-2024 19:30 O2 SAT98% Comments:98 15-Feb-2024 19:00 Pulse66 Comments:66 Respiratory Rate11 Comments:11 O2 SAT95% Comments:95 BP Hhocacra817vh[Hg] Comments:10 3 BP Opijvamwa89pd[Hg] Comments:58 15-Feb-2024 18:00 Pulse74 Comments:74 Respiratory Rate23 Comments:23 O2 SAT98% Comments:98 BP Fdaoibps081cx[Hg] Comments:11 8 BP Dmkgyrgae68hk[Hg] Comments:58 15-Feb-2024 17:23 Pulse78 Comments:78 Respiratory Rate22 Comments:22 O2 SAT94% Comments:94 BP Qpkqxnrc501uv[Hg] Comments:13 3 BP Fzjyiffcl96am[Hg] Comments:64 15-Feb-2024 16:30 Qrjmfdtbxkk18.3f Comments:98.3 15-Feb-2024 15:00 Pulse72 Comments:72 Respiratory Rate13 Comments:13 O2 SAT93% Comments:93 BP Muzekcun779ao[Hg] Comments:13 4 BP Bxoohdzmk40rw[Hg] Comments:63 15-Feb-2024 14:00 Pulse81 Comments:81 Respiratory Rate24 Comments:24 O2 SAT97% Comments:97 BP Hbbsshqk311jn[Hg] Comments:10 2 BP Tnmdlxoan01wq[Hg] Comments:57 15-Feb-2024 13:00 Pulse85 Comments:85 Respiratory Rate18 Comments:18 O2 SAT96% Comments:96 BP Sjygcztw37ac[Hg] Comments:98 BP Kvaixluww56ly[Hg] Comments:67 15-Feb-2024 12:00 Pulse72 Comments:72 Respiratory Rate15 Comments:15 O2 SAT97% Comments:97 BP Mfzzocym975bv[Hg] Comments:14 6 BP Utcfckbrw44yl[Hg] Comments:69 15-Feb-2024 11:31 Skesouraydw58.8f Comments:97.8 15-Feb-2024 11:00 Pulse70 Comments:70 Respiratory Rate13 Comments:13 O2 SAT91% Comments:91 BP Kpksmxpe622pu[Hg] Comments:12 9 BP Kxvcajhjo56dn[Hg] Comments:61 15-Feb-2024 10:01 Pulse67 Comments:67 Respiratory Rate9 Comments:9 O2 SAT95% Comments:95 BP Xnvkqbqv06iv[Hg] Comments:94 BP Otxllicyh05pn[Hg] Comments:51 15-Feb-2024 09:45 O2 SAT98% Comments:98 15-Feb-2024 09:03 Pulse86 Comments:86 Respiratory Rate16 Comments:16 O2 SAT97% Comments:97 BP Khwkbsdo930go[Hg] Comments:14 1 BP Ncpqexxep24wm[Hg] Comments:68 15-Feb-2024 08:00 Pulse80 Comments:80 O2 SAT96% Comments:96 BP Tlagtnvb627hj[Hg] Comments:11 2 BP Wwzoyzfzw99ij[Hg] Comments:87 15-Feb-2024 07:04 Xkpajtdtefi85.2f Comments:98.2 15-Feb-2024 07:00 Pulse86 Comments:86 Respiratory Rate18 Comments:18 O2 SAT94% Comments:94 BP Mytcwpna263sr[Hg] Comments:10 8 BP Bwwmoetqf05zs[Hg] Comments:59 15-Feb-2024 06:30 Pulse78 Comments:78 Respiratory Rate11 Comments:11 O2 SAT93% Comments:93 15-Feb-2024 05:00 Pulse81 Comments:81 Respiratory Rate33 Comments:33 O2 SAT97% Comments:97 15-Feb-2024 04:00 Ghuproxhohq95.9f Comments:97.9 15-Feb-2024 03:07 Pulse77 Comments:77 Respiratory Rate13 Comments:13 O2 SAT95% Comments:95 BP Svzsdpxu662pp[Hg] Comments:14 3 BP Wtqbbazxh92ot[Hg] Comments:71 15-Feb-2024 02:00 Pulse79 Comments:79 Respiratory Rate13 Comments:13 O2 SAT95% Comments:95 BP Qadznvtd619yy[Hg] Comments:10 5 BP Rnhffmyov59md[Hg] Comments:53 15-Feb-2024 01:01 Pulse83 Comments:83 Respiratory Rate14 Comments:14 O2 SAT98% Comments:98 BP Cumklwqr199gf[Hg] Comments:10 6 BP Vqfohipuq83qv[Hg] Comments:53 15-Feb-2024 00:01 Pulse85 Comments:85 Respiratory Rate13 Comments:13 O2 SAT96% Comments:96 BP Umvbvdnh556vg[Hg] Comments:11 5 BP Tgsnzspmg98dp[Hg] Comments:50 15-Feb-2024 Klhagsuydzu83d Comments:98.0 14-Feb-2024 21:00 Pulse77 Comments:77 Respiratory Rate15 Comments:15 O2 SAT95% Comments:95 BP Obajnuka79eo[Hg] Comments:97 BP Tiwmaezwp78ib[Hg] Comments:51 14-Feb-2024 20:01 Pulse87 Comments:87 Respiratory Rate21 Comments:21 O2 SAT97% Comments:97 BP Zffdcrtb558pw[Hg] Comments:11 8 BP Bftwkiidh05bk[Hg] Comments:56 14-Feb-2024 20:00 Ibbjxbvlqfy37.2f Comments:98.2 14-Feb-2024 19:01 Pulse92 Comments:92 Respiratory Rate20 Comments:20 O2 SAT97% Comments:97 BP Tklryhyi231lz[Hg] Comments:13 0 BP Jfvywwzdw49df[Hg] Comments:61 14-Feb-2024 18:50 O2 SAT98% Comments:98 14-Feb-2024 17:00 Pulse87 Comments:87 Respiratory Rate13 Comments:13 O2 SAT94% Comments:94 BP Wwfxxrgc084md[Hg] Comments:10 4 BP Fidpbxuhn56os[Hg] Comments:66 14-Feb-2024 16:03 Pulse88 Comments:88 Respiratory Rate16 Comments:16 O2 SAT95% Comments:95 BP Aquntles789rv[Hg] Comments:11 5 BP Dfwcxoehd89hl[Hg] Comments:60 14-Feb-2024 16:00 Qhivltklpbu30.9f Comments:97.9 14-Feb-2024 14:00 Pulse94 Comments:94 O2 SAT95% Comments:95 BP Psdjrjct120ty[Hg] Comments:10 5 BP Blbkagkbe86ga[Hg] Comments:56 14-Feb-2024 13:00 BP Oxikelug779ss[Hg] Comments:11 8 BP Mssdvshlw17ke[Hg] Comments:86 14-Feb-2024 13:00 Herta882 Comments:134 Respiratory Rate15 Comments:15 O2 SAT95% Comments:95 14-Feb-2024 12:12 Jzmcm273 Comments:140 Respiratory Rate20 Comments:20 O2 SAT94% Comments:94 BP Khyieidt478cf[Hg] Comments:11 5 BP Xrshbuiif35ya[Hg] Comments:69 14-Feb-2024 12:00 Ejqwuykovfk92.1f Comments:98.1 14-Feb-2024 11:32 Jpatntfhibi85.1f Comments:98.1 14-Feb-2024 11:00 Znytu453 Comments:135 O2 SAT94% Comments:94 BP Ratxexwg793kx[Hg] Comments:12 3 BP Qlfslvlbi48me[Hg] Comments:66 14-Feb-2024 10:01 Unqgw648 Comments:141 Respiratory Rate20 Comments:20 O2 SAT95% Comments:95 BP Bvlvevlx279rt[Hg] Comments:12 4 BP Rnmoqkwqn36hi[Hg] Comments:72 14-Feb-2024 09:00 Mfhjo304 Comments:107 Respiratory Rate20 Comments:20 O2 SAT93% Comments:93 BP Owpkxfxp753je[Hg] Comments:10 6 BP Fpdmteacf53ph[Hg] Comments:65 14-Feb-2024 08:19 Jbbimsuevkv06.8f Comments:97.8 14-Feb-2024 08:01 Zhvow310 Comments:115 Respiratory Rate16 Comments:16 O2 SAT95% Comments:95 BP Awgbkfts470ud[Hg] Comments:12 3 BP Ufotspljn46xv[Hg] Comments:56 14-Feb-2024 08:00 Vafyakzjipx84.1f Comments:98.1 14-Feb-2024 07:00 Yrtoo882 Comments:103 Respiratory Rate16 Comments:16 O2 SAT95% Comments:95 BP Ifbvtprh068rm[Hg] Comments:17 2 BP Qdmqkrpqm52dh[Hg] Comments:91 14-Feb-2024 06:00 Xpbjr400 Comments:100 Respiratory Rate26 Comments:26 O2 SAT93% Comments:93 BP Mwnzjuyz259yo[Hg] Comments:17 0 BP Gangwiryv46oz[Hg] Comments:79 14-Feb-2024 05:44 Cejogervscy15.8f Comments:97.8 14-Feb-2024 05:07 Esakg846 Comments:100 Respiratory Rate20 Comments:20 O2 SAT96% Comments:96 BP Emglloys436vn[Hg] Comments:15 5 BP Emkpnmtcc28zo[Hg] Comments:77 14-Feb-2024 04:00 Pulse71 Comments:71 Respiratory Rate14 Comments:14 O2 SAT97% Comments:97 BP Pcgtmvwt354lk[Hg] Comments:10 5 BP Vewwbnuwu15zv[Hg] Comments:59 14-Feb-2024 03:00 Jpejs167 Comments:143 Respiratory Rate19 Comments:19 O2 SAT96% Comments:96 BP Hmxhcjjw665mw[Hg] Comments:16 4 BP Mqucbktqx243wj[Hg] Comments:1 00 14-Feb-2024 02:00 Wgwel067 Comments:137 Respiratory Rate38 Comments:38 O2 SAT92% Comments:92 BP Ooamcred105an[Hg] Comments:15 5 BP Dmwrmbewl44yw[Hg] Comments:96 14-Feb-2024 01:00 Pfljt002 Comments:134 Respiratory Rate14 Comments:14 O2 SAT87% Comments:87 BP Xupmxdbi465wl[Hg] Comments:12 8 BP Ddncdcpqb60jz[Hg] Comments:76 14-Feb-2024 00:23 Ojvvk255 Comments:109 Respiratory Rate28 Comments:28 O2 SAT96% Comments:96 14-Feb-2024 O2 SAT95% Comments:95 BP Faswfhvy739ml[Hg] Comments:12 8 BP Hyhzbleqc29yg[Hg] Comments:81 13-Feb-2024 23:34 Tmcgekfyvrd46.3f Comments:98.3 13-Feb-2024 23:34 Isluhsrmdmc09.3f Comments:98.3 13-Feb-2024 23:00 Pulse98 Comments:98 Respiratory Rate20 Comments:20 O2 SAT94% Comments:94 BP Ukqfrwcq181fc[Hg] Comments:14 7 BP Aneiidlln85up[Hg] Comments:77 13-Feb-2024 22:30 Mxfqc940 Comments:106 Respiratory Rate22 Comments:22 O2 SAT93% Comments:93 BP Gwimpqun925nj[Hg] Comments:16 3 BP Mowwjsvnm90aa[Hg] Comments:89 13-Feb-2024 21:00 Ufjka823 Comments:100 Respiratory Rate22 Comments:22 O2 SAT94% Comments:94 BP Yaclczzf583om[Hg] Comments:14 4 BP Qaermfuxz50jl[Hg] Comments:76 13-Feb-2024 20:21 Tgvdufpyogs68.4f Comments:98.4 13-Feb-2024 20:00 Pulse96 Comments:96 Respiratory Rate16 Comments:16 O2 SAT94% Comments:94 BP Oobghexk784vv[Hg] Comments:14 2 BP Zkevmvloh57yy[Hg] Comments:76 13-Feb-2024 19:00 Gqhyt202 Comments:102 Respiratory Rate18 Comments:18 O2 SAT94% Comments:94 BP Kfvbvsxh792ld[Hg] Comments:13 4 BP Ayizfdiqa62aa[Hg] Comments:88 13-Feb-2024 16:39 Clvzmqcluag83.3f Comments:98.3 13-Feb-2024 14:00 Kwhzz566 Comments:104 Respiratory Rate17 Comments:17 O2 SAT89% Comments:89 BP Nwdnznjn806qj[Hg] Comments:16 6 BP Ygmforwgv47di[Hg] Comments:78 13-Feb-2024 13:00 Pulse93 Comments:93 Respiratory Rate18 Comments:18 O2 SAT95% Comments:95 BP Qzubzbpd574wi[Hg] Comments:14 0 BP Vfuecwofq30mi[Hg] Comments:70 13-Feb-2024 12:14 Vimnwkrkckw09.1f Comments:98.1 13-Feb-2024 12:01 O2 SAT97% Comments:97 BP Hufpoymm441hc[Hg] Comments:13 6 BP Uptljkrlf84rj[Hg] Comments:70 13-Feb-2024 11:00 Pulse99 Comments:99 Respiratory Rate15 Comments:15 O2 SAT96% Comments:96 BP Otmwijkx559eb[Hg] Comments:10 7 BP Bodvqzldr36na[Hg] Comments:57 13-Feb-2024 10:00 Pulse90 Comments:90 Respiratory Rate23 Comments:23 O2 SAT96% Comments:96 BP Ecztupzz693of[Hg] Comments:11 5 BP Xedxpcyhn81iq[Hg] Comments:56 13-Feb-2024 09:54 Pulse89 Comments:89 Respiratory Rate11 Comments:11 O2 SAT96% Comments:96 BP Cbgmvall816ku[Hg] Comments:12 6 BP Pjktgjsah05fh[Hg] Comments:64 13-Feb-2024 09:02 Pulse94 Comments:94 O2 SAT83% Comments:83 BP Xcytdezy640wx[Hg] Comments:16 0 BP Kswqaqkqn00ml[Hg] Comments:69 13-Feb-2024 08:08 Tljhoblgion38.3f Comments:98.3 13-Feb-2024 08:00 Pulse91 Comments:91 Respiratory Rate6 Comments:6 O2 SAT91% Comments:91 BP Lnttwhsp765kl[Hg] Comments:11 1 BP Fmmvhkpsw97ix[Hg] Comments:57 13-Feb-2024 07:57 Pulse83 Comments:83 Respiratory Rate0 Comments:0 O2 SAT92% Comments:92 BP Mftpuxqb746qa[Hg] Comments:12 2 BP Skmaphswr32dc[Hg] Comments:58 13-Feb-2024 07:01 Pulse92 Comments:92 O2 SAT92% Comments:92 BP Jqryglzk996cu[Hg] Comments:16 1 BP Strpkgmvy90tf[Hg] Comments:83 13-Feb-2024 07:00 Pulse95 Comments:95 Respiratory Rate33 Comments:33 O2 SAT90% Comments:90 13-Feb-2024 06:00 O2 SAT90% Comments:90 BP Sxkjrzqz520sh[Hg] Comments:12 1 BP Qvktrehvi64jf[Hg] Comments:61 13-Feb-2024 05:30 Pulse87 Comments:87 Respiratory Rate12 Comments:12 O2 SAT95% Comments:95 13-Feb-2024 05:09 Pulse87 Comments:87 Respiratory Rate11 Comments:11 O2 SAT95% Comments:95 BP Yfmbgosd841cn[Hg] Comments:13 8 BP Sachoethj72fe[Hg] Comments:67 13-Feb-2024 04:43 Kdsiczjzgvc76.7f Comments:98.7 13-Feb-2024 04:33 Pulse89 Comments:89 Respiratory Rate19 Comments:19 O2 SAT96% Comments:96 BP Pfztqdml161me[Hg] Comments:18 1 BP Xdjtqutmi05yn[Hg] Comments:96 13-Feb-2024 04:00 Pulse85 Comments:85 Respiratory Rate24 Comments:24 O2 SAT96% Comments:96 BP Tuzhgyll127la[Hg] Comments:17 3 BP Btsaslpik64yp[Hg] Comments:86 13-Feb-2024 03:01 Pulse83 Comments:83 Respiratory Rate17 Comments:17 O2 SAT96% Comments:96 BP Wcrjgfum632qd[Hg] Comments:15 4 BP Ymiwszmyf70av[Hg] Comments:89 13-Feb-2024 02:08 Height in:5in Comments:5 Height5[ft_us] Comments:5 Xuwdir92.3kg Comments:78.300 13-Feb-2024 02:08 BMI28.7kg/m2 Comments:28.7 13-Feb-2024 02:00 Pulse81 Comments:81 Respiratory Rate33 Comments:33 O2 SAT96% Comments:96 BP Huifpusm561ry[Hg] Comments:14 1 BP Gayvalaoo64fb[Hg] Comments:75 13-Feb-2024 01:00 Pulse76 Comments:76 Respiratory Rate15 Comments:15 O2 SAT97% Comments:97 BP Fmhbqgiz556yu[Hg] Comments:15 5 BP Xbjobdyzl35lu[Hg] Comments:80 13-Feb-2024 00:45 Tzfwnlrimew47.3f Comments:98.3 13-Feb-2024 00:11 Pulse85 Comments:85 Respiratory Rate23 Comments:23 O2 SAT98% Comments:98 BP Jsskzxiq877yf[Hg] Comments:14 8 BP Vkgbbjybs54lw[Hg] Comments:70 12-Feb-2024 23:00 Pulse85 Comments:85 Respiratory Rate17 Comments:17 O2 SAT97% Comments:97 BP Vhxnxvgw358qz[Hg] Comments:15 1 BP Yxtkcockh54dn[Hg] Comments:74 12-Feb-2024 22:06 Pulse82 Comments:82 Respiratory Rate23 Comments:23 O2 SAT98% Comments:98 BP Btukpqfi831hz[Hg] Comments:17 1 BP Dcnyforec83jt[Hg] Comments:83 12-Feb-2024 21:13 Dlamxrcsjyl94.4f Comments:98.4 12-Feb-2024 21:00 Pulse79 Comments:79 Respiratory Rate18 Comments:18 O2 SAT96% Comments:96 BP Ambqwboq205nu[Hg] Comments:15 3 BP Cbyeuotzn60eu[Hg] Comments:76 12-Feb-2024 20:00 Pulse95 Comments:95 Respiratory Rate27 Comments:27 BP Pszxucew877jx[Hg] Comments:15 0 BP Aooewqbyw49tm[Hg] Comments:81 12-Feb-2024 19:00 Pulse84 Comments:84 Respiratory Rate19 Comments:19 O2 SAT94% Comments:94 BP Wyqjnjqo598qy[Hg] Comments:15 0 BP Ifavghawe86el[Hg] Comments:85 12-Feb-2024 18:07 Pulse82 Comments:82 12-Feb-2024 18:00 Pulse84 Comments:84 Respiratory Rate25 Comments:25 O2 SAT96% Comments:96 BP Putvtekb357to[Hg] Comments:13 2 BP Wfdkdjtia40pu[Hg] Comments:76 12-Feb-2024 17:51 Pulse89 Comments:89 Respiratory Rate13 Comments:13 O2 SAT97% Comments:97 BP Myucpxsx121dg[Hg] Comments:13 7 BP Kuyiqiahz48at[Hg] Comments:75 12-Feb-2024 17:00 Pulse87 Comments:87 Respiratory Rate22 Comments:22 O2 SAT98% Comments:98 BP Asnffard778zh[Hg] Comments:15 8 BP Ooiwiscuh42fx[Hg] Comments:91 12-Feb-2024 16:56 Kbjodasvmvd95.2f Comments:98.2 12-Feb-2024 16:00 Pulse77 Comments:77 Respiratory Rate14 Comments:14 O2 SAT94% Comments:94 BP Luqcnvii041bf[Hg] Comments:14 5 BP Uuzqvhtfx37np[Hg] Comments:75 12-Feb-2024 15:00 Pulse92 Comments:92 Respiratory Rate29 Comments:29 O2 SAT98% Comments:98 BP Ygpdwmez137ok[Hg] Comments:11 8 BP Zqesdzpld78xf[Hg] Comments:74 12-Feb-2024 14:00 Pulse74 Comments:74 Respiratory Rate15 Comments:15 O2 SAT95% Comments:95 BP Xcbitzlh023xu[Hg] Comments:11 2 BP Knbyxdklw46cz[Hg] Comments:62 12-Feb-2024 13:00 Pulse84 Comments:84 Respiratory Rate21 Comments:21 O2 SAT95% Comments:95 BP Waluvaoz71hu[Hg] Comments:99 BP Lmlmowvxc15jt[Hg] Comments:74 12-Feb-2024 12:17 Tawpudacrod73.1f Comments:98.1 12-Feb-2024 12:00 Pulse85 Comments:85 Respiratory Rate19 Comments:19 O2 SAT98% Comments:98 BP Kparhtnz851ro[Hg] Comments:11 8 BP Sjsnywnyc11zk[Hg] Comments:72 12-Feb-2024 11:00 Pulse79 Comments:79 Respiratory Rate15 Comments:15 O2 SAT96% Comments:96 BP Jrggrrln876mm[Hg] Comments:13 9 BP Qlakqojtq18nt[Hg] Comments:73 12-Feb-2024 10:00 Pulse92 Comments:92 Respiratory Rate13 Comments:13 O2 SAT97% Comments:97 BP Afwqxdzv210xa[Hg] Comments:10 2 BP Cdzzyibho00qy[Hg] Comments:59 12-Feb-2024 09:01 Chpwr002 Comments:115 Respiratory Rate31 Comments:31 O2 SAT97% Comments:97 BP Ixxcgngg822tr[Hg] Comments:11 4 BP Nssidjriw24vs[Hg] Comments:62 12-Feb-2024 09:00 Aswkw687 Comments:110 Respiratory Rate39 Comments:39 O2 SAT99% Comments:99 12-Feb-2024 08:25 Rdkhpsqakfd61.2f Comments:98.2 12-Feb-2024 08:00 Pulse89 Comments:89 Respiratory Rate14 Comments:14 O2 SAT97% Comments:97 BP Dkvnxbbp071gj[Hg] Comments:13 5 BP Kmjqsjvij35yw[Hg] Comments:63 12-Feb-2024 07:00 Pulse90 Comments:90 Respiratory Rate13 Comments:13 O2 SAT96% Comments:96 BP Czbfeprz471ok[Hg] Comments:12 7 BP Tsyanaviu25ee[Hg] Comments:62 12-Feb-2024 06:00 Pulse91 Comments:91 Respiratory Rate13 Comments:13 O2 SAT97% Comments:97 BP Bcdkllop686ww[Hg] Comments:11 4 BP Pbcrhdzko22bu[Hg] Comments:63 12-Feb-2024 05:35 Bfehpmiayty81.2f Comments:98.2 12-Feb-2024 05:00 Pulse95 Comments:95 Respiratory Rate17 Comments:17 O2 SAT98% Comments:98 BP Zpicrbgn020dp[Hg] Comments:10 9 BP Fckpdxtwg51ib[Hg] Comments:54 12-Feb-2024 04:01 Pulse97 Comments:97 Respiratory Rate14 Comments:14 O2 SAT98% Comments:98 BP Hcaxytaw183ue[Hg] Comments:13 1 BP Rckluzmrq50ql[Hg] Comments:60 12-Feb-2024 03:06 Pulse99 Comments:99 Respiratory Rate16 Comments:16 BP Xryrhadf912pu[Hg] Comments:17 4 BP Prfyvhgqm75xr[Hg] Comments:85 12-Feb-2024 02:00 Pulse88 Comments:88 Respiratory Rate16 Comments:16 O2 SAT97% Comments:97 BP Uphpsbzk243tp[Hg] Comments:10 9 BP Famgpnqyj02dz[Hg] Comments:59 12-Feb-2024 01:18 BP Xbdygkre151rg[Hg] Comments:15 3 BP Kyesqtjxb70ec[Hg] Comments:93 12-Feb-2024 01:00 Pulse89 Comments:89 Respiratory Rate16 Comments:16 O2 SAT98% Comments:98 BP Jfgyyqcm830gd[Hg] Comments:19 4 BP Bbonknyyl32dy[Hg] Comments:92 12-Feb-2024 00:45 Pulse81 Comments:81 Respiratory Rate14 Comments:14 O2 SAT99% Comments:99 BP Amcmnfrq175wp[Hg] Comments:19 6 BP Ekqsjfxnj64vg[Hg] Comments:91 12-Feb-2024 00:30 Pulse90 Comments:90 Respiratory Rate14 Comments:14 O2 ZNT652% Comments:100 BP Fwrwkdww078ll[Hg] Comments:16 2 BP Gngjldhef08qr[Hg] Comments:97 12-Feb-2024 00:15 Pulse84 Comments:84 Respiratory Rate16 Comments:16 O2 SAT97% Comments:97 BP Ppwkxrku540eh[Hg] Comments:17 9 BP Hcvdxgerh994pa[Hg] Comments:1 07 11-Feb-2024 23:15 Pulse91 Comments:91 Respiratory Rate16 Comments:16 O2 SAT99% Comments:99 BP Crmnklvu493vw[Hg] Comments:16 7 BP Binsndotw84ir[Hg] Comments:87 11-Feb-2024 22:01 Pulse80 Comments:80 Respiratory Rate14 Comments:14 O2 SAT98% Comments:98 BP Jeflanwr697rf[Hg] Comments:16 3 BP Xypdyzndx13sj[Hg] Comments:96 11-Feb-2024 21:16 Pulse88 Comments:88 Respiratory Rate16 Comments:16 O2 PPT506% Comments:100 BP Qijwgooy239yq[Hg] Comments:13 2 BP Zsuhyqjcb48hw[Hg] Comments:87 11-Feb-2024 18:50 Ahntqwyqhhx25.4f Comments:98.4 Pulse98 Comments:98 Respiratory Rate16 Comments:16 O2 MKG496% Comments:100 Height in:5in Comments:5 BP Mxptibav290gq[Hg] Comments:12 0 BP Wvqxnjfwc22ww[Hg] Comments:64 Height5[ft_us] Comments:5 Escyxz65.3kg Comments:78.300 10-Feb-2024 12:57 O2 SAT99% Comments:99 10-Feb-2024 12:48 Lsrcwxefzxq82.4f Comments:98.4 Pulse94 Comments:94 Respiratory Rate18 Comments:18 O2 SAT99% Comments:99 Height in:5in Comments:5 BP Gnszmexa415kg[Hg] Comments:13 0 BP Ohqirewuk77bl[Hg] Comments:82 Height5[ft_us] Comments:5 Nczwlo95.6kg Comments:75.600 10-Feb-2024 12:48 BMI27.7kg/m2 Comments:27.7 21-Jan-2024 17:31 Pulse83 Comments:83 Respiratory Rate15 Comments:15 O2 SAT98% Comments:98 BP Pdkxgiro205lp[Hg] Comments:14 2 BP Chizgkhal25su[Hg] Comments:74 21-Jan-2024 15:13 Nnrzzfovgjw06.4f Comments:98.4 Xcvqf876 Comments:109 Respiratory Rate20 Comments:20 O2 SAT99% Comments:99 Height in:5in Comments:5 BP Vojwnkji765wi[Hg] Comments:15 7 BP Ududymrdo43cu[Hg] Comments:83 Height5[ft_us] Comments:5 Obyvuf38.909kg Comments:75.909 21-Jan-2024 15:13 BMI27.8kg/m2 Comments:27.8 10-Nov-2013 Pulse89 Respiratory Rate18 Encounters Inpatient encounter Encounter Reason:DONT FEEL WELL Encounter Diagnosis:Chest pain, unspecified,897,Acute ischemic heart disease, unspecified,Alcoholic gastritis without bleeding,Alcohol dependence with withdrawal, unspecified,Type 2 diabetes mellitus with diabetic polyneuropathy,Type 2 diabetes mellitus with other specified complication,Nicotine dependence, unspecified, uncomplicated,Epilepsy, unspecified, not intractable, without status epilepticus,Other chronic pain,Hypertensive heart disease with heart failure,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,Paroxysmal atrial fibrillation,Heart failure, unspecified,Blood alcohol level of 240 mg/100 ml or more,half-way (current) use of anticoagulants,termination clerk (current) use of antithrombotics/antiplatelets,Personal history of transient ischemic attack (TIA), and cerebral infarction without residual deficits,Presence of aortocoronary bypass graft,half-way (current) use of insulin,Alcohol dependence with intoxication, unspecified 11-Sep-2024 05:[id number]-[id number] 11:01 [facility] Discharge Disposition:Discharged to home or self care (routine discharge) MANAGEMENT EDDX-7-Qei-2025 [facility] [address] [place] [address] Case Management Report CONFIDENTIAL PATIENT INFORMATION ENCOUNTER DATA Patient Name: RAMAN BERNAL : 63Account #: [id number] Date: 09/11/24 AGE: 59Attending Physician: Yasmine Cobb MD ROOM: [address] ----- --[facility] SUPPORT SERVICES ----- ---[facility] Support Services User Bowman: Date Entered: 09/12/2024Service Type: Important Message from Medicare - IMCase Worker: Noé Yao 5Worklist Date: 09/16/2024Payer: [employer] MED[employer] WELLMEDComments:--- 09/12/2024 10:05 AM by Kaushal Guerrero ---spoke to pt obtained imm and signed electronically Date Entered: 09/11/2024Service Type: *Care CoordinationCase Worker: Noé Yao 5Worklist Date: 09/12/2024Payer: [employer] MEDICARE WELLMEDComments:--- 09/11/2024 11:52 AM by Bita Martinez ---CM spoke with patient to complete initial assessment.CM role explained.Patient is: alert and oriented.Patient s primary contact is: mother Carol [phone] decision maker in case of emergency:Pt does not have adv dir/living will.Face sheet demographics reviewed/verified;Patient resides with: alone. [place] [address] and stays with his brotherPatient has the following DME: none.Patient Name: RAMAN BERNAL is currently active with: noneHHC/SNF preference: nonePrior to hospitalization was: independent with adls.Pt is able to obtain medications outpatient.Planned discharge transportation discussed with the patient. 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,Old myocardial infarction,Paroxysmal atrial fibrillation,Blood alcohol level of 240 mg/100 ml or more,half-way (current) use of anticoagulants,half-way (current) use of antithrombotics/antiplatelets,termination clerk (current) use of oral hypoglycemic drugs,Personal history of transient ischemic attack (TIA), and cerebral infarction without residual deficits,Presence of aortocoronary bypass graft,Alcohol dependence with intoxication, unspecified 09-Sep-2024 18:[id number]-Ohn-5031 15:38 [facility] Discharge Disposition:Discharged to home or self care (routine discharge) Jacky Jimenez MD-10-Sep-2024 Activity Ambulate in roomActivity Bathroom privilegesActivity BedrestActivity: As TolerActivity: Resume nrm Inpatient encounter Encounter Reason:CP X FEW MONTHS, IVETH BLOOD SUGAR Encounter Diagnosis:Fracture of one rib, right side, initial encounter for closed fracture,Type 2 diabetes mellitus with hyperglycemia,Fatty (change of) liver, not elsewhere classified,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,Essential (primary) hypertension,Insomnia, unspecified,Type 2 diabetes mellitus with diabetic neuropathy, unspecified,Type 2 diabetes mellitus with other specified complication,Osteomyelitis, unspecified,Hypokalemia,Alcohol dependence, uncomplicated,Nicotine dependence, cigarettes, uncomplicated,half-way (current) use of antithrombotics/antiplatelets,termination clerk (current) use of oral hypoglycemic drugs,termination clerk (current) use of anticoagulants,Personal history of transient ischemic attack (TIA), and cerebral infarction without residual deficits,Presence of aortocoronary bypass graft,Exposure to other specified factors, initial encounter,Other chest pain 04-Sep-2024 16:28Qf05-Swz-5276 12:49 [facility] Discharge Disposition:Discharged to home or self care (routine discharge) Gilbert Parsons MD-05-Sep-2024 [facility] ([facility])Discharge SummaryREPORT#:[id number] REPORT STATUS: SignedDATE:09/05/24 TIME: 1332PATIENT: RAMAN BERNAL UNIT #: [id number]#: [id number] [address]AGE: 59 SEX: M ATTEND: Yasmine Cobb [facility] AUTHOR: John Hunt MD R1REP SRV REP [...] neuropathy, [facility] due [facility] with [...] DAILY NEEDED as needed for SBP GREATER DMEJ778Nrtgevfw taking these medications:Atorvastatin (Lipitor) 40 MG TAB [...] Pulse 89 09/05 1102 Resp 16 09/05 [id number] hour I O ending at 0700: 09/05 [...] WBC Evaluation Comment ABNORMAL 09/04 09/04 09/04 2250 2239 2028 Chemistry POC Glucose (70 - 110 [...] pH (4.5 - 7.5) 6.5 Ur Specific [place] (1.005 - 1.030) < 1.005 L Urine [...] Abdiel Mcnair MD 09/04/2024 06:32 PMEDT RPWorkstation: [id number] By: - GURVINDER ZAPIENesults: labs reviewed, vital [...] 39minutes of discharge planning. at 2015 at 1455RPT#:[id number] OF REPORT Emergency Encounter Reason:CHEST PAIN X1 DAY Encounter Diagnosis:Essential (primary) hypertension,Type 2 diabetes mellitus without complications,Epilepsy, unspecified, not intractable, without status epilepticus,Atherosclerotic heart disease of inaja coronary artery with unspecified angina pectoris,Nicotine dependence, unspecified, uncomplicated,half-way (current) use of antithrombotics/antiplatelets,termination clerk (current) use of oral hypoglycemic drugs,Personal history of transient ischemic attack (TIA), and cerebral infarction without residual deficits,Other chest pain 30-Aug-2024 02:[id number] 03:49 Moisés Jimenez MD (Attending) [facility] Discharge Disposition:Discharged to home or self care (routine discharge) [id number] [facility] ([facility])EMERGENCY PROVIDER REPORTREPORT#:[id number] REPORT STATUS: SignedDATE:08/30/24 TIME: 0243PATIENT: RAMAN BERNAL UNIT #: [id number]#: [id number] ROOM/BED:: 64 AGE: 59 SEX: M PCP [...] Documented: Result Date Time Pulse Ox 100 08/31 219 B/P 146/81 08/31 219 Temp 36.8 08/31 219 Pulse 84 08/30 0220 Resp 19 08/31 219 B/P Mean 108 08/30 0224Last Documented: Result Date Time Pulse Ox 96 08/30 0300 B/P 121/72 08/30 0300 B/P Mean 91 08/30 0300 Pulse 83 08/30 0300 Resp 22 08/30 299 Temp 36.8 08/300Review of Vital Signs ReviewedFree Text PE NotesFree [...] Yoel Butler DO 08/30/2024 03:37 AMEDT RPWorkstation: [id number] By: CLAUDIA Butler DOPortions of this section [...] 0220 Temp 36.8 08/30 0220 Pulse 84 08/30 0220 Resp 19 08/30 0220 B/P Mean [...] scribed by RODNEY GONZALEZ on 08/30/24 at 0243BBD ORDONEZ 09/01/24 2317:Patient Discharge DepartureDischarge/Care PlanReferralsProvider Referral: Walker Lui MD Address: [address] [place] [address]. [place], [place] [id number] Physician Note Resident Saw PtThis patient was seen by a resident. I have personally seen the patient,performed the critical or martinez portions of the service, and participated in themanagement of the patient. I have reviewed and agree with the resident's note,and I have reviewed all labs, ECGs, and imaging studies or reports. I agree withthis resident's findings, exam and plan. 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,Gastro-esophageal reflux disease without esophagitis,Noninfective gastroenteritis and colitis, unspecified,Fatty (change of) liver, not elsewhere classified,Enlarged prostate without lower urinary tract symptoms,Alcohol dependence with intoxication, unspecified,Hypertensive heart disease with heart failure,Other specified disorders of bladder,Blood alcohol level of 240 mg/100 ml or more,termination clerk (current) use of oral hypoglycemic drugs,Personal history of transient ischemic attack (TIA), and cerebral infarction without residual deficits,Presence of aortocoronary bypass graft,half-way (current) use of aspirin,Unspecified atrial fibrillation,Unspecified atrial fibrillation 26-Aug-2024 02:[id number] 16:37 [facility] Discharge Disposition:Discharged to home or self care (routine discharge) MANAGEMENT JART-28-Khl-2025 [facility] [address] [place] [address] Case Management Report CONFIDENTIAL PATIENT INFORMATION ENCOUNTER DATA Patient Name: RAMAN BERNAL : 63Account #: [id number] Date: 08/26/24 AGE: 59Attending Physician: Hayden Mares MD ROOM: [address] ----- --[facility] SUPPORT SERVICES ----- ---HCM Support Services User Bowman: Date Entered: 08/29/2024Service Type: Important Message from Medicare - IMCase Worker: Noé Yao PCUWorklist Date: 08/31/2024Payer: [place] [employer] WELLMEDComments:--- 08/29/2024 09:54 AM by Kaushal Guerrero ---spoke to pt obtained imm and signed electronically Date Entered: 08/27/2024Service Type: *Care CoordinationCase Worker: Noé Yao PCUWorklist Date: 08/30/2024Payer: [employer] MEDICARE WELLMEDComments:--- 08/27/2024 12:40 PM by Asmita Polo ---CM spoke with patient to complete initial assessment.CM role explained. Reason for hospitalization: afib rvrPatient is alert and oriented.Patient s primary contacts/ POA: Carol (mother) [phone] has dir/living will.Facesheet demographics reviewed/verified; no changesPatient [...] how his/her care needs may change overtime?: YesPatient/loss prevention representative agrees with discharge plan: YesDiscussed expected insurance coverage and/or out of pocket expenses: NotApplicableDate / Time: 08/27/2024 12:39 PMEvaluated by: Asmita Polo ===== =========Updated by: Asmita Polo () - 08/31/2024 11:40 AM ==Pat ient Name: RAMAN BERNAL Emergency Encounter Reason:BXHQNTGE-GVZJ-GTMCQ Encounter Diagnosis:Headache, unspecified,Essential (primary) hypertension,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,Nicotine dependence, unspecified, uncomplicated,Personal history of transient ischemic attack (TIA), and cerebral infarction without residual deficits,Presence of aortocoronary bypass graft,termination clerk (current) use of oral hypoglycemic drugs,Type 2 diabetes mellitus with hyperglycemia 07-Jul-2024 11:09Oo25-Htd-0818 16:09 [facility] Discharge Disposition:Discharged to home or self care (routine discharge) Chu Francisco MD-07-Jul-2024 [facility] ([facility]OR A [facility] PROVIDER REPORTREPORT#:[id number] REPORT STATUS: SignedDATE:07/07/24 TIME: 1254PATIENT: RAMAN BERNAL UNIT #: [id number]#: [id number] ROOM/BED:: 64 AGE: 59 SEX: M PCP [...] with chills. He has been seen by [facility] clinic few days ago. COVID andflu tests [...] weakness, Numbness.Past Medical History - AdultStated Complaint WSISAYSO-BFMH-VZDIWNygtdsqqnPxzxe Allergies:No Known Allergies (11/20/22)Home MedicationsActive ScriptsIBUPROFEN (MOTRIN) [...] Medical HistoryOsteomyelitis May 12 continues on antibiotics. DE and CABG November 09 Dr wall of [...] % (Auto) (24 - 44 %) 39.7 Hartley % (Auto) (0.0 - 4.0 %) 9.8 [...] pH (5.5 - 7.0) 7.0 Ur Specific [place] (1.001 - 1.035) 1.005 Urine Protein (NEGATIVE [...] Type B Antigen - COMP NASOPHARG 07/07 1305 Influenza Virus Type A Antigen - COMP NASOPHARGRecent Impressions:RADIOLOGY - XR CHEST 1 V 07/07 1259 Report Impression - Status: SIGNED Entered: 07/07/2024 1343IMPRESSION:Unremarkable frontal chest radiograph.Electronically signed by: Vinny Grant MD 07/07/2024 01:41PM CDT RP Workstation: [id number] By: NataliiaTSBrinda Grant [facility] SCAN - CT HEAD/BRAIN W/O CONT 07/07 1422 Report Impression - Status: SIGNED Entered: 07/07/2024 1448IMPRESSION:No acute- appearing imaging abnormality.Electronically signed by: Vinny Grant MD 07/07/2024 02:46PM CDT RP Workstation: [id number] By: Sonny Grant MD Lab Imaging StatementLaboratory radiographic studies [...] or a call to 911. 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,Essential (primary) hypertension,half-way (current) use of oral hypoglycemic drugs,Presence of aortocoronary bypass graft,Weakness 18-Jun-2024 19:74Py6-Chu-5708 20:36 [facility] Discharge Disposition:Left against medical advice or discontinued care Allen Venegas GYZPMC-2-Jlz-2025 [facility] ([facility])OR A [facility] PROVIDER REPORTREPORT#:[id number] REPORT STATUS: SignedDATE:06/18/24 TIME: ATIENT: RAMAN BERNAL UNIT #: [id number]#: [id number] ROOM/BED:: 64 AGE: 58 SEX: M PCP PHYS: Walker Lui DOSERVICE DT: AUTHOR: Maris Villa APRNNPREP SRV REP SRV TM: 2030* ALL [...] change.Past Medical History - AdultStated Complaint CHEST VNVL-IWU-ZXBT-DIZZYAllergiesCoded Allergies:No Known Allergies (11/20/22)Home MedicationsActive ScriptsIBUPROFEN (MOTRIN) [...] Medical HistoryOsteomyelitis May 12 continues on antibiotics. DE and CABG November 09 Dr wall of [...] #:[id number] OF REPORT Emergency Encounter Reason:PUI-CHEST CSVP-JNC-RNSM-DIZZY Encounter Diagnosis:Pain in left shoulder 18-Apr-2024 22:24Fz8-Hfv-3596 01:24 [facility] Discharge Disposition:Discharged to home or self care (routine discharge) Bassam Lopez WS-08-Rgj18-Apr-2024 [facility] ([facility]OR A [facility] PROVID[facility] REPORTREPORT#:[id number] REPORT STATUS: SignedDATE:04/18/24 TIME: 2257PATIENT: RAMAN BERNAL UNIT #: [id number]#: [id number] ROOM/BED:: 64 AGE: 58 SEX: M PCP [...] pain.Past Medical History - AdultStated Complaint PUI-CHEST TNJU-KSS-MHOU-DIZZYAllergiesCoded Allergies:No Known Allergies (11/20/22)Home MedicationsActive ScriptsIBUPROFEN (MOTRIN) [...] Result Date Time Pulse Ox 98 04/19 012 B/P 100/58 04/19 012 O2 Delivery Room air 04/19 123 Pulse [...] % (Auto) (24 - 44 %) 30.8 Hartley % (Auto) (0.0 - 4.0 %) 7.1 [...] 0.69Recent Impressions:RADIOLOGY - XR CHEST 1 V 04/18 2249 Report Impression - Status: SIGNED Entered: 04/18/2024 2343IMPRESSION:No evidence of acute cardiopulmonary disease.Electronically signed by: Yuri Sandhu MD 04/18/2024 11:41 [facility] [id number] By: LEV - Yuri Sandhu MD Lab Imaging StatementLaboratory radiographic studies reviewed and considered in the medicaldecision-making.ECG #1 InterpretationDate 04/18/24Time 2300Interpreted by and reviewed by me, Independently interpreted, ED physicianNL ECG Interpretation Normal rate, Normal sinus rhythm, No acute ischemicchanges, No STEMI, Normal QRS, Normal ST waves, Normal T waves, Normal axis,Normal intervals, Adequate tracingRe- Evaluation MDMED CourseMedication(s) OrderedMedication(s) Ordered:Central Nervous System Agents Sig/Darshana Start time Last Medication Dose Route Stop Time Status Admin Ketorolac 15 MG X1ED STA 04/197 DC 04/19 Tromethamine IV 04/19 7 0025Electrolytic, Caloric, And Lety Sig/Darshana Start time Last Medication Dose Route Stop Time Status Admin Sodium Chloride 1,000 ML X1ED STA 04/19 0007 DC 04/19 IV 04/19 7 0024Patient Discharge DepartureVital Signs/ConditionVital SignsFirst Documented: Result Date Time Pulse Ox 99 04/18 2210 B/P 128/60 04/181 O2 Delivery Room air 04/18 2210 Temp 36.7 04/18 221 Pulse 94 04/18 2210 Resp 18 04/18 [...] Shoulder Pain, Uncertain CauseAdditional InstructionsFollow-up with your inflatable buildings laminator as soon as possible.Return to the emergency department as needed for new or worsening symptoms.ReferralsProvider Referral: Keyonna Wall MD Follow-Up: First Available Address: [address] [place] [address] [address] [place], [place] [address]Jpukftmvewubpz Signed by Grupo Banegas DO on 04/19/24 at 0448RPT #:[id number] OF REPORT Inpatient encounter Encounter Reason:ACUTE ALCOHOLIC HEPATITIS Encounter Diagnosis:Alcoholic hepatitis without ascites,432,Acute on chronic combined systolic (congestive) and diastolic (congestive) heart failure,ALCOHOL ABUSE WITH WITHDRAWAL, UNSPECIFIED,Osteomyelitis, unspecified,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,Hypertensive heart disease with heart failure,Other chronic pain,Nicotine dependence, cigarettes, uncomplicated,Old myocardial infarction,HEPATIC ENCEPHALOPATHY,Type 2 diabetes mellitus with other specified complication,Hypokalemia,Chronic obstructive pulmonary disease, unspecified,Pure hypercholesterolemia, unspecified,Presence of aortocoronary bypass graft,Alcoholic hepatitis without ascites 12-Feb-2024 00:69Mk2-Wsh-1304 14:37 [facility] Discharge Disposition:Discharged/t ransferred to home under care of organized home health service organization MANAGEMENT AZEC-1-Nuw-2024 [id number] [place], [place]PATIENT NAME: RAMAN BERNAL ADMIT DATE: 02/12/24ACCOUNT NO: [id number] ROOM NO: [id number] RECORD NO: [id number] AGE: 58REPORT TYPE: CASE MANAGEMENT REPORT SEX: MADMITTING PHYSICIAN:Josue Mena PHYSICIAN:Josue Mena MD --HCM SUPPORT SERVICES ----- ---HCM Support Services User Bowman:Discharge Disposition: - Home HealthReturning Facility: N Date Entered: 02/14/2024Service Type: *Care CoordinationCase Worker: [facility] Date: 02/20/2024ayer: UNITED MEDICARE WELLMEDComments:--- 02/14/2024 01:37 PM by Sugar Culp --- P: Discharge PlanningA: Consulted by Dr MENA for ETOH resources.I: Met with patient and provided ETOH resources.P: CM to follow for further needs. Date Entered: 02/20/2024Service Type: Home Health AgencyCase Worker: Maximilian Brooks Date: 03/19/2005gency: [facility]Referral Status:Booked ----- --------HCM [...] why: YESPrescription Plan: YESPreferred Pharmacy[facility] [place] [facility] SPOHNMethod of Transportation: PARENTS WILL PICK UPPrimary Contact (name number): MOTHER CAROL ROYAL [phone],FATHER JEFFERY ROYAL [phone] Power of Coat Feller completed: NOMedical Decision Maker name/ number: MOTHER CAROL ROYAL [phone],FATHER JEFFERY ROYAL [phone] Plan discussed with/caregiver included: PATIENTAdditional Info: N/A ---[facility] DISCHARGE PLANNING EVALUATION ----- -----Case Workers: Dana Brooks Status: Parent(s)Setting: Home- residenceADL Limits: None or n/aDME: NoneDependent Care: NonePatient Care: Parent - FATHER JEFFERY ROYAL - [phone] Parent - MOTHER CAROL ROYAL - [phone] Risk: None ApplicableHCM Discharge Planning User Bowman:Community Services Prior to Admission: None or NACurrent Mental Status/Cognition: Alert and OrientedPATIENT NAME: BERNALRAMAN obtained from: PatientDischarge Barriers, select all that [...] his/her care needs may change overtime?: Not ApplicablePatient/loss prevention representative agrees with discharge plan: YesDiscussed expected insurance coverage and/or out of pocket expenses: NotApplicableComments:: --Date / Time: 02/12/2024 12:16 PMEvaluated by: Joanne Brooks ===== ========PATIENT NAME: RAMAN BERNAL by: HIS MATILDA ([id number]) - 02/20/2024 12:12 PM ==PAT IENT NAME: ARMAN BERNAL Emergency Encounter Reason:GENERALIZED PAIN Encounter Diagnosis:Other chronic pain,Dehydration,Type 2 diabetes mellitus with hyperglycemia,Type 2 diabetes mellitus with other specified complication,Osteomyelitis, unspecified,Essential (primary) hypertension,half-way (current) use of oral hypoglycemic drugs,Blood alcohol level of 240 mg/100 ml or more,Alcohol abuse with intoxication, unspecified 10-Feb-2024 12:38Ja61-Cry-0622 17:54 [facility] Discharge Disposition:Discharged to home or self care (routine discharge) Bryn Verdugo MD-10-Feb-2024 [facility] ([facility])OR A [facility] PROVIDER REPORTREPORT#:[id number] REPORT STATUS: SignedDATE:02/10/24 TIME: 1243PATIENT: RAMAN BERNAL UNIT #: [id number]#: [id number] ROOM/BED:: 64 AGE: 58 SEX: M PCP PHYS: Walker Lui DOSERVICE AUTHOR: Kartik Clemente MDREP SRV REP SRV TM: 1243* ALL edits or amendments must be made on the electronic/computer document *HPI-General IllnessFree Text HPI NotesFree Text HPI Bnlmb21-nbjo-kug male past medical history of diabetes, hypertension, [...] Medical HistoryOsteomyelitis May 12 continues on antibiotics. DE and CABG November 09 Dr wall of [...] pH (5.5 - 7.0) 7.0 Ur Specific [place] (1.001 - 1.0101.035) Urine Protein (NEGATIVE mg/dL) [...] % (Auto) (24 - 44 %) 36.1 Hartley % (Auto) (0.0 - 4.0 %) 10.8 [...] Date/Time Procedure - Status Source Growth 02/09 132 Influenza Virus Type B Antigen - COMP NASOPHARG 02/09 1324 Influenza Virus Type A Antigen - COMP NASOPHARGRecent Impressions:RADIOLOGY - XR CHEST 1 V 02/09 1346 Report Impression - Status: SIGNED Entered: 02/10/2024 1355IMPRESSION:No acute cardiopulmonary disease process.Electronically signed by: Omer Salmon MD 02/10/2024 01:53 PMCST Workstation: [id number] By: Elba - Omer Salmon, [facility] SCAN - CT ABD PELVIS W/CONT 02/09 [...] signed by: Josue Meredith MD 02/10/2024 04:01PM [facility] [place] [id number] By: - Josue Meredith, MDRe- Evaluation MDMFree Text MDM NotesFree Text MDM Wvesk96-olou-qjc male past medical history of diabetes, hypertension, [...] Notes: OR follow with your PCP Address: [address] [place] [address] Discharge NoteI have spoken with the patient [...] or a call to 911. 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,Blood alcohol level of 100-119 mg/100 ml,Other chest pain 21-Jan-2024 15:41Da4-Mla-7613 18:00 [facility] Discharge Disposition:Discharged to home or self care (routine discharge) Criss Malloy DO-21-Jan-2024 [facility] ([facility])OR A [facility] PROVIDER REPORTREPORT#:[id number] REPORT STATUS: SignedDATE:01/21/24 TIME: 1534PATIENT: RAMAN BERNAL UNIT #: [id number]#: [id number] ROOM/BED:: 64 AGE: 58 SEX: M PCP PHYS: Walker Lui AUTHOR: Mellissa Kahn SRV [facility] TM: 1534* ALL edits or amendments must be made on the electronic/computer document *HPI-General IllnessFree Text HPI NotesFree Text HPI NotesPatient is a 58-year-old male who comes to the emergency department for elevatedblood pressure and chest pain. Initially triaged as his chest pain the same ashis DE last summer however now states that it [...] stroke.Additional Medical HistoryOsteomyelitis May 12 continues on antibiotics.DE and CABG November 09 Dr wall of cardiologyPhysical ExamVital SignsVital SignsFirst Documented: Result Date Time Pulse Ox 99 01/20 1513 B/P 157/83 01/20 1513 B/P Mean 107 01/20 1513 O2 Delivery Room air 01/20 1513 Temp 98.4 01/20 1513 Pulse 109 01/20 1513 Resp 20 01/20 1513Last Documented: Result Date Time Pulse Ox 98 01/20 173 B/P 142/74 01/20 173 B/P Mean 96 01/20 173 O2 Delivery Room air 01/20 1731 Pulse 83 01/20 173 Resp 15 01/20 173 Temp 98.4 01/20 1513Review of Vital Signs [...] % (Auto) (24 - 44 %) 24.7 Hartley % (Auto) (0.0 - 4.0 %) 7.6 [...] signed by: Mauricio Ascencio MD 01/21/2024 04:00 [facility] Workstation: [id number] By: - Mauricio Ascencio, MDRe-Evaluation MDMFree Text [...] or worsening of your condition. at 0530RPT #:[id number] OF REPORT Plan of Treatment Future Tests Future scheduled test information is unavailable Pending Tests Pending diagnostic test information is unavailable Future Visits Future appointment information is unavailable Referrals to Other Providers Reason for Referral Referral Start Date Provider Provider Contact Information Provider Address aWlker Lui MD Work Phone: [phone] [facility] [address] Future Procedures Future procedure information is unavailable Future Medications Future medication information is unavailable Patient Instructions Instruction Admit Date Social Drinking vs Problem Drinking September 11, 2024 3:26am What Is Angina September 11, 2024 3:26 am Diabetes and Drinking Alcohol Brittany 24th, 2025 12:15pm Pain Management Opioids September 09, 2024 [...]
--- OUTSIDE RECORDS SUMMARY | 2024-09-28 21:15 | XMS_ITS ---
Author Organization [facility] Address [address] [place] [address] Care Team Providers Care Machine Setup Operator Name Role Phone CLEM JACK Unavailable [phone] Dr. Hank Jones Unavailable Unavailable REASON FOR VISIT Referral Status: pending PA Encounters Encounter Location Date Provider Diagnosis [id number] [address] [place], [place] [id number] 10/23/2023 CLEM JACK Plan Of Treatment No Information Progress Notes * Marcel SPENCER DDOB:1965 (58 yo M)Acc No.[id number]:10/23/2023 Patient: Ivana Marcel LUX :1965 A ge:58 Y S ex:Male Address:[address] [place] [address], [place], [address] * true * Date: Generated for Dima knight/Margarita/eTransmitting on: 0 09/28/2024 09:14 PM CDT
--- OUTSIDE RECORDS SUMMARY | 2024-09-28 21:15 | XMS_ITS | Patient Health Record ---
Author Organization Dianne Iqbal [facility] Address [address] [place] [address] Care Team Providers Care Environmental Geologist Name Role Phone LINDA STACY Unavailable [phone] Josue Mena Unavailable [phone] ZOË LIRIANO Unavailable [phone] Allergies No Known Allergies Reason For Referral [...] Risk Notes Problem Atherosclerotic heart disease of one[place] coronary artery without angina pectoris (583434056257529) Atherosclerotic heart disease of one[place] coronary artery without angina pectoris (I25.10) Active confirmed Problem Pure hypercholesterolem ia, unspecified (E78.00) Active confirmed Encounters Encounter Location Date Provider Diagnosis Dianne Iqbal [facility] [address] [place] [address] 12/10/2023 ZOË LIRIANO Atherosclerotic hear t disease of one[place] coronary artery without angina pectoris I25.10 and Presence of aortocoronary bypass graft Z95.1 Assessments Encounter Date Diagnosis (ICD Code) Assessment Notes Treatment Notes Treatment Clinical Notes Section Notes 12/10/2023 Atherosclerotic heart disease of one[place] coronary artery without angina pectoris (ICD-10 - [...] Insured Coverage Start Date Coverage End Date [facility] [address] [address] [place] [address] [id number] RAMAN BERNAL Self - patient is the insured Medical (General) History Medical History History ICD Code anemia CAD cocaine abuse diabetes type 2 ETOH abuse HLD HTN heart failure discitis lumbar region seizure NSTEMI Surgical History Surgery Date(Month/Year) CABG - Dr. Stacy 11/14/2023
[2024-09-28 21:26] LABS: Hematocrit 33.9 % (42.0-52.0); Hemoglobin 11.1 g/dL (14.0-18.0); Immature Granulocyte Percent A 0.7 % (0-0.5); Immature Platelet Fraction Pct 3.4 % (0.9-11.2); Lymphocytes Absolute Auto 0.72 K/mm3 (0.9-3.2); Mean Corpuscular HGB Conc 32.7 g/dl (32-36); Mean Corpuscular Hemoglobin 32.6 pg (26-34); Mean Corpuscular Volume 99.4 fl (80-100); Nucleated Red Blood Cells Absolute Auto 0.000 K/mm3 (0.0-0.012); Nucleated Red Blood Cells Perc 0.0 % (0.0-0.2); Platelet Count Result 94 k/mm3 (150-375); Red Blood Count 3.41 M/mm3 (4.6-6.20); White Blood Count 4.1 K/mm3 (4.5-10.0)
[2024-09-28 21:35] LABS: Alanine Aminotransferase 52 U/L (6-50); Albumin Level 3.2 g/dL (3.5-5.1); Alkaline Phosphatase 94 U/L (38-126); Anion Gap 8 mmol/L (4-12); Aspartate Amino Transferase 88 U/L (17-59); Bilirubin,Total 0.4 mg/dL (0.2-1.3); Blood Urea Nitrogen 9 mg/dL (9-20); Calcium 8.8 mg/dL (8.4-10.2); Carbon Dioxide 22 mmol/L (22-30); Chloride 107 mmol/L (98-107); Estimated CRCL calculation 83 ml/min; Estimated Glomerular Filt Rate > 60; Glucose 184 mg/dL (65-110); Potassium 3.6 mmol/L (3.4-5.0); Sodium 137 mmol/L (137-145); Total Protein 5.8 g/dL (6.3-8.2)
[2024-09-28 21:38] LABS: Schistocytes None Seen
[2024-09-28 21:39] LABS: Partial Thromboplastin Time 26.7 Seconds (22.3-36.8)
[2024-09-28 21:46] LABS: INR 1.1; Prothrombin Time 14.2 Seconds (11.1-14.7)
[2024-09-28 21:53] LABS: Magnesium 1.7 mg/dL (1.6-2.3); Troponin I 0.041 ng/mL (0.000-0.034)
[2024-09-28] MEDS: SODIUM CHLORIDE 0.9% IV 1,000 ML 999 ML IV CONT (21:55)
[2024-09-28] MEDS: levETIRAcetam 1000MG/NACL100ML 1,000 MG/100 ML BAG 400 MG IVPB (21:55)
--- NOTE | 2024-09-28 22:47 | ED_ITS ---
HPI - Seizure General Chief Complaint: Seizure <CECILIA Gonzáles Last Filed: 09/29/24 01:40> Stated Complaint: SZ, CP, +ETOH <CECILIA Gonzáles Last Filed: 09/29/24 01:40> Time Seen by Provider: 09/28/24 21:07 <CECILIA Gonzáles Last Filed: 09/29/24 01:40> Source: patient and family <CECILIA Gonzáles Last Filed: 09/29/24 01:40> Mode of arrival: EMS <CECLIIA Gonzáles Last Filed: 09/29/24 01:40> Limitations: clinical condition <CECILIA Gonzáles Last Filed: 09/29/24 01:40> History of Present Illness HPI Narrative: Patient is a 59-year-old male, with past medical history of seizure disorder on Keppra, CAD status post CABG, diabetes, hypertension, alcoholism, who presents the ED via EMS with report of possible seizure. Patient was admitted to the hospital here 2 days ago for chest pain, elevated troponin, SVT. He left the hospital this afternoon AMA. Patient was reportedly with his daughter karey and he was drinking in a parking lot. He reports he had 1 [employer] lemonade. Daughter reports that patient then had a syncopal vs seizure episode. States he fell forward onto his knees, was unconscious, snoring respirations, and had some shaking activity of his extremities. Denied full tonic clonic activity. States this lasted approx 5 minutes before improving. Patient does have hx of sz. He reports compliance with his Keppra medication. States he last had a seizure 2 weeks ago. Reports ongoing midsternal CP currently, radiating to his L arm. 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 Daughter reports he is visiting from [place]. Denies SOB. Denies focal weakness or numbness. < CECILIA Gonzáles Last Filed: 09/29/24 01:40> Seizure History: Yes <CECILIA Gonzáles Last Filed: 09/29/24 01:40> Related Data Home Medications: Home Medications ?Medication ?Instructions ?Recorded ?Confirmed ?Last Taken ?Type atorvastatin 40 mg tablet 40 mg PO QPM 09/26/24 09/29/24 Unknown History clopidogrel 75 mg tablet 75 mg PO DAILY 09/26/24 09/29/24 Unknown History glipizide 5 mg tablet 5 mg PO BIDWM 09/26/24 09/29/24 Unknown History losartan 50 mg tablet 50 mg PO DAILY 09/26/24 09/29/24 Unknown History metformin 1,000 mg tablet 1,000 mg PO BIDWM 09/26/24 09/29/24 Unknown History <Fiorella Greenberg PA-C - Last Filed: 09/29/24 01:40> Allergies/Adverse Reactions: Allergies Allergy/AdvReac Type Severity Reaction Status Date / Time No Known Allergies Allergy Verified 09/29/24 04:51 <Fiorella Greenberg PA-C - Last Filed: 09/29/24 01:40> Review of Systems 2 Review of Systems: All systems reviewed & are unremarkable except as noted in HPI. <Fiorella Greenberg PA-C - Last Filed: 09/29/24 01:40> All systems reviewed & are unremarkable except as noted in HPI and below < Fiorella Greenberg PA-C - Last Filed: 09/29/24 01:40> [facility] Past Medical History Medical History: Medical History Hypertension associated with diabetes Hyperlipidemia associated with type 2 diabetes mellitus Alcohol abuse Tobacco abuse Coronary artery disease <Fiorella Greenberg PA-C - Last Filed: 09/29/24 01:40> Family History Family History: Family History Father Diabetes mellitus <Fiorella Greenberg PA-C - Last Filed: 09/29/24 01:40> Social History Social History: Social History Smoking packs per day: 1 Smoking cigarettes per day: 20.0 Years smoked: 4 Smoking pack-years: 4.00 Smoking status: Current every day smoker Tobacco type: cigarettes Alcohol intake: current Drinks per week: 24 Substance use: never Substance use type: does not use Do You Feel Safe in your Home?: Yes Lack of Transportation: No Lack of Food: Never True Current Housing: I Have Housing Concerned About Future Housing: No Difficulty Paying Gas/Electric Bills: No Difficulty Paying for Meds: No Currently Unemployed: No Education: Decline to Answer Difficulty w/ Childcare or Family Care: No Spiritual care concerns: No <Fiorella Greenberg PA-C - Last Filed: 09/29/24 01:40> Exam 2 Narrative: GENERAL: Chronically ill, mildly intoxicated appearing, well-nourished, non- toxic, in no acute distress. HEAD: Normocephalic, atraumatic. RESPIRATORY: Airway patent, respirations nonlabored. Clear to auscultation bilaterally, no rales, rhonchi, wheezing. CARDIOVASCULAR: Regular rate and rhythm without murmurs, rubs, or gallops. MUSCULOSKELETAL: Moves all extremities. No gross deformities. No peripheral edema. SKIN: Warm, dry, normal color. Chronic midline sternotomy scar. 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 NEURO: A&O X3. Speech clear but slow. Cranial nerves II-XII grossly intact. Steady gait. No ataxic movements. No focal deficits PSYCHIATRIC: Appropriate mood and affect. Normal interaction. <Fiorella Greenberg PA-C - Last Filed: 09/29/24 01:40> Course OPTIMIZATION SPECIALIST/PA Physician Supervision For this patient encounter, I reviewed the OPTIMIZATION SPECIALIST or PA documentation, treatment plan, and medical decision making and had [id number] time with this patient. I performed all aspects of the MDM as documented. <Connor Flannery MD - Last Filed: 09/29/24 07:07> Vital Signs Vital signs: Vital Signs Temperature 98.0 F 09/28/24 21:00 Pulse Rate 85 09/28/24 21:00 Respiratory Rate 18 09/28/24 21:00 Blood Pressure 138/67 09/28/24 21:00 Pulse Oximetry 97 09/28/24 21:00 Oxygen Delivery Room Air 09/28/24 21:00 Temperature 97.8 F 09/29/24 04:00 Pulse Rate 81 09/29/24 06:00 Respiratory Rate 16 09/29/24 04:00 Blood Pressure 117/51 L 09/29/24 04:00 Pulse Oximetry 100 09/29/24 04:00 Oxygen Delivery Room Air 09/29/24 04:00 <Fiorella Greenberg PA-C - Last Filed: 09/29/24 01:40> Vital Signs Temperature 98.0 F 09/28/24 21:00 Pulse Rate 85 09/28/24 21:00 Respiratory Rate 18 09/28/24 21:00 Blood Pressure 138/67 09/28/24 21:00 Pulse Oximetry 97 09/28/24 21:00 Oxygen Delivery Room Air 09/28/24 21:00 Temperature 97.8 F 09/29/24 04:00 Pulse Rate 81 09/29/24 06:00 Respiratory Rate 16 09/29/24 04:00 Blood Pressure 117/51 L 09/29/24 04:00 Pulse Oximetry 100 09/29/24 04:00 Oxygen Delivery Room Air 09/29/24 04:00 <Connor Flannery MD - Last Filed: 09/29/24 07:07> MDM - Seizure MDM Narrative Medical decision making narrative: Patient presented to ED with seizure versus syncopal episode, left AMA from the in-patient team here today with chest pain/svt/elevated trops. Complains of persistent chest pain. On aspirin/Plavix. History of seizures on Keppra. History of alcoholism. Vital signs are stable upon arrival. Patient in no acute distress. Neurologically intact upon arrival. EKG with sinus rhythm, no significant concerning ST changes. Troponin 0.041. Down trending from recent admission, but patient does report ongoing chest pain. Lactic acid elevated to 2.6. Fluids and 1 g Keppra ordered. Thiamine also ordered given hx of alcoholism CMP otherwise with mild transaminitis. Consistent with recent records. Lipase WNL. Magnesium borderline at 1.7. Given IV replacement. Alcohol level here 70 Chest x-ray with cardiomegaly, otherwise unremarkable. CTA chest was obtained given chest pain, elevated troponins, possible syncopal episode. This was negative for PE or other acute findings. CT brain w/o acute findings. Showing chronic infarcts. Unclear etiology of episode tonight. Unprovoked syncope vs breakthrough sz vs alcohol WD sz vs dysrhythmia Will admit for continued eval, discussed case with Dr. Oliveros, hospitalist, accepted patient for admission. Patient and family in agreement with plan. Discussed case with Dr. Michael, cardiology, will continue to consult. He saw patient today before patient left AMA and recommended ECHO. This was ordered. < Fiorella Greenberg PA-C - Last Filed: 09/29/24 01:40> Medical Records Attestation: I reviewed the patient's medical records. <Fiorella Greenberg PA-C - Last Filed: 09/29/24 01:40> Lab Data Attestation: I reviewed the patient's lab results. <Fiorella Greenberg PA-C - Last Filed: 09/29/24 01:40> Result diagrams: 09/28/24 21:18 09/28/24 21:18 <CECILIA Gonzáles Last Filed: 09/29/24 01:40> Labs: Lab Results 09/28/24 09/28/24 09/29/24 Range/Units 21:17 21:18 00:13 WBC 4.1 L (4.5-10.0) K/mm3 RBC 3.41 L (4.6-6.20) M/mm3 Hgb 11.1 L (14.0-18.0) g/dL Hct 33.9 L (42.0-52.0) % MCV 99.4 (80-100) fl MCH 32.6 (26-34) pg MCHC 32.7 (32-36) g/dl RDW 15.3 H (11.5-14.5) % Plt Count 94 L (150-375) k/mm3 MPV 9.9 (7.4-10.4) fl Immature Gran % (Auto) 0.7 H (0-0.5) % Neut % (Auto) 69.3 (45.5-73.1) % Lymph % (Auto) 17.4 L (18.3-44.2) % [place] % (Auto) 11.4 H (2.6-8.5) % Eos % (Auto) 1.0 (0-4.4) % Baso % (Auto) 0.2 (0.2-1.2) % Lymph # (Auto) 0.72 L (0.9-3.2) K/mm3 [place] # (Auto) 0.5 (0.1-0.6) K/mm3 Eos # (Auto) 0.0 (0-0.3) K/mm3 Baso # (Auto) 0.0 (0.0-0.1) K/mm3 Abs Immat Gran (auto) 0.03 (0.00-0.031) K/mm3 Absolute Neuts (auto) 2.9 (1.3-6.7) K/mm3 Absolute Nucleated RBC 0.000 (0.0-0.012) K/mm3 Band Neutrophils % Not Reportable Nucleated RBC % 0.0 (0.0-0.2) % Platelet Estimate Decreased (Adequate) % Immature Plt Fraction 3.4 (0.9-11.2) % Schistocytes None seen PT 14.2 (11.1-14.7) Seconds INR 1.1 APTT 26.7 (22.3-36.8) Seconds Sodium 137 (137-145) mmol/L Potassium 3.6 (3.4-5.0) mmol/L Chloride 107 (98-107) mmol/L Carbon Dioxide 22 (22-30) mmol/L Anion Gap 8 (4-12) mmol/L BUN 9 (9-20) mg/dL Creatinine 0.85 (0.7-1.3) mg/dL Estim Creat Clear Calc 83 ml/min Estimated GFR > 60 (59 - ) Glucose 184 H (65-110) mg/dL Lactic Acid 2.6 H 1.7 (0.7-2.0) mmol/L Calcium 8.8 (8.4-10.2) mg/dL Magnesium 1.7 (1.6-2.3) mg/dL Total Bilirubin 0.4 (0.2-1.3) mg/dL AST 88 H (17-59) U/L ALT 52 H (6-50) U/L Alkaline Phosphatase 94 (38-126) U/L Troponin I 0.041 H* 0.043 H* (0.000-0.034) ng/mL Total Protein 5.8 L (6.3-8.2) g/dL Albumin 3.2 L (3.5-5.1) g/dL Lipase 41 (23-300) U/L Ethyl Alcohol 70 (<10) mg/dL <Fiorella Greenberg PA-C - Last Filed: 09/29/24 01:40> Lab Results 09/28/24 09/28/24 09/29/24 Range/Units 21:17 21:18 00:13 WBC 4.1 L (4.5-10.0) K/mm3 RBC 3.41 L (4.6-6.20) M/mm3 Hgb 11.1 L (14.0-18.0) g/dL Hct 33.9 L (42.0-52.0) % MCV 99.4 (80-100) fl MCH 32.6 (26-34) pg MCHC 32.7 (32-36) g/dl RDW 15.3 H (11.5-14.5) % Plt Count 94 L (150-375) k/mm3 MPV 9.9 (7.4-10.4) fl Immature Gran % (Auto) 0.7 H (0-0.5) % Neut % (Auto) 69.3 (45.5-73.1) % Lymph % (Auto) 17.4 L (18.3-44.2) % [place] % (Auto) 11.4 H (2.6-8.5) % Eos % (Auto) 1.0 (0-4.4) % Baso % (Auto) 0.2 (0.2-1.2) % Lymph # (Auto) 0.72 L (0.9-3.2) K/mm3 [place] # (Auto) 0.5 (0.1-0.6) K/mm3 Eos # (Auto) 0.0 (0-0.3) K/mm3 Baso # (Auto) 0.0 (0.0-0.1) K/mm3 Abs Immat Gran (auto) 0.03 (0.00-0.031) K/mm3 Absolute Neuts (auto) 2.9 (1.3-6.7) K/mm3 Absolute Nucleated RBC 0.000 (0.0-0.012) K/mm3 Band Neutrophils % Not Reportable Nucleated RBC % 0.0 (0.0-0.2) % Platelet Estimate Decreased (Adequate) % Immature Plt Fraction 3.4 (0.9-11.2) % Schistocytes None seen PT 14.2 (11.1-14.7) Seconds INR 1.1 APTT 26.7 (22.3-36.8) Seconds Sodium 137 (137-145) mmol/L Potassium 3.6 (3.4-5.0) mmol/L Chloride 107 (98-107) mmol/L Carbon Dioxide 22 (22-30) mmol/L Anion Gap 8 (4-12) mmol/L BUN 9 (9-20) mg/dL Creatinine 0.85 (0.7-1.3) mg/dL Estim Creat Clear Calc 83 ml/min Estimated GFR > 60 (59 - ) Glucose 184 H (65-110) mg/dL Lactic Acid 2.6 H 1.7 (0.7-2.0) mmol/L Calcium 8.8 (8.4-10.2) mg/dL Magnesium 1.7 (1.6-2.3) mg/dL Total Bilirubin 0.4 (0.2-1.3) mg/dL AST 88 H (17-59) U/L ALT 52 H (6-50) U/L Alkaline Phosphatase 94 (38-126) U/L Troponin I 0.041 H* 0.043 H* (0.000-0.034) ng/mL Total Protein 5.8 L (6.3-8.2) g/dL Albumin 3.2 L (3.5-5.1) g/dL Lipase 41 (23-300) U/L Ethyl Alcohol 70 (<10) mg/dL <Connor Flannery MD - Last Filed: 09/29/24 07:07> Imaging Data Attestation: I personally reviewed and interpreted this imaging study as follows: < Fiorella Greenberg PA-C - Last Filed: 09/29/24 01:40> Radiologist's impression: STAT RAD CT brain: No acute intracranial hemorrhage. No midline shift or mass effect. Encephalomalacia in the left frontal lobe, consistent with old infarct. Age-related cerebral volume loss. Periventricular and subcortical white matter hypoattenuation, consistent with chronic microangiopathy. STAT RAD CTA chest: No acute pulmonary embolism. <CECILIA Gonzáles Last Filed: 09/29/24 01:40> ECG Data EKG #1: Attestation: I personally reviewed and interpreted this ECG as follows: <CECILIA Gonzáles Last Filed: 09/29/24 01:40> ECG completion date: 09/28/24 <CECILIA Gonzáles Last Filed: 09/29/24 01:40> ECG completion time: 21:09 <CECILIA Gonzáles Last Filed: 09/29/24 01:40> EKG Interpretation: normal rate (83), sinus rhythm and no ST changes <CECILIA Gonzáles Last Filed: 09/29/24 01:40> Discharge Plan Discharge Clinical Impression: Seizure-like activity, Alcoholism, Elevated troponin, Chest pain <CECILIA Gonzáles Last Filed: 09/29/24 01:40> Patient Disposition: Still a Patient <CECILIA Gonzáles Last Filed: 09/29/24 01:40> Condition: Stable <CECILIA Gonzáles Last Filed: 09/29/24 01:40>
[2024-09-28] MEDS: THIAMINE HCL 200 MG/2 ML VIAL 100 MG IV PUSH (23:14)
[2024-09-28] MEDS: MAGNESIUM SULF 2 GM/WATER 50ML 2 GM/50 ML BAG IVPB (23:15)
[2024-09-28 23:17] LABS: Lipase 41 U/L (23-300)
[2024-09-29] VITALS (19 sets, daily range): BP systolic 92–152; BP diastolic 51–81; PULSE 72–93; RESP 14–22; TEMP 36.5–37.1; O2SAT 97–100; BMI 25.6
--- NOTE | 2024-09-29 00:21 | ECG_ITS ---
Test Date: 2024-09-29 00:27:29 Measurements Intervals [place] Rate: 77 P: 51 MS: 158 QRS: -6 QRSD: 88 T: 8 QT: 406 QTc: 460 Interpretive Statements SINUS RHYTHM LOW QRS VOLTAGE IN PRECORDIAL LEADS [QRS DEFLECTION < 1.0 mV IN CHEST LEADS] POSSIBLE ANTERIOR MYOCARDIAL INFARCTION , OF INDETERMINATE AGE [30 ms Q WAVE IN V3/V4, OR R < 0.2 mV IN V4] INFERIOR MYOCARDIAL INFARCTION , PROBABLY OLD [40+ ms Q WAVE AND/OR ST/T ABNORMALITY IN II/aVF] Compared to ECG 09/28/2024 21:09:06 Myocardial infarct finding still present Electronically Signed On 09-29-2024 15:54:41 CDT by Pedro Keller M.D.
[2024-09-29 00:55] LABS: Troponin I 0.043 ng/mL (0.000-0.034)
--- NOTE | 2024-09-29 02:17 | ADMGEN ---
This patient, Marcel Spencer, was admitted to IMU Room 212-01. Patient/family oriented to hospital policies and general routines including ID bracelet, bed and alarms, visiting hours, pain management, procedures, bathroom and other care routines, personal items, smoking policy, room service/diet, and visiting hours. Information on how to activate the Rapid Response Team has been discussed. Patient/Family are encouraged to report perceived risks to care and to ask questions if they do not understand what they are told or what they should do.
--- NOTE | 2024-09-29 02:19 | ECG_ITS ---
Test Date: 2024-09-29 02:25:40 Measurements Intervals [place] Rate: 82 P: 52 PA: 162 QRS: -2 QRSD: 90 T: 15 QT: 398 QTc: 465 Interpretive Statements SINUS RHYTHM LOW QRS VOLTAGE IN PRECORDIAL LEADS [QRS DEFLECTION < 1.0 mV IN CHEST LEADS] ANTERIOR MYOCARDIAL INFARCTION, INDETERMINATE AGE INFERIOR MYOCARDIAL INFARCTION [40+ ms Q WAVE AND/OR ST/T ABNORMALITY IN II/aVF], PROBABLY OLD Compared to ECG 09/29/2024 00:27:29 No significant changes Electronically Signed On 09-29-2024 15:56:04 CDT by Pedro Keller M.D.
[2024-09-29] MEDS: NITROGLYCERIN SL 0.4 MG TABLET SUBLINGUAL ×4 (02:55→07:49)
[2024-09-29] MEDS: ACETAMINOPHEN 325 MG TABLET 650 MG PO ×3 (02:56→16:35)
[2024-09-29 03:48] LABS: Troponin I 0.041 ng/mL (0.000-0.034)
--- NOTE | 2024-09-29 04:31 | PC.NURSE ---
Patient falling asleep during admissions questions. Unable to recall for through question completion.
[2024-09-29 06:34] LABS: Add Urine Microscopic? NO; Appearance Urine Clear (Clear); Glucose Urine UA Trace mg/dL (Negative); Leukocyte Esterase Ur Negative LEU/UL (Negative); Nitrate Urine Negative (Negative); Specific Grav Ur 1.027 (1.001-1.035)
--- NOTE | 2024-09-29 07:00 | ECG_ITS ---
Test Date: 2024-09-29 07:47:04 Measurements Intervals [place] Rate: 83 P: 28 ME: 157 QRS: -8 QRSD: 85 T: 31 QT: 405 QTc: 476 Interpretive Statements SINUS RHYTHM INFERIOR MYOCARDIAL INFARCTION [40+ ms Q WAVE AND/OR ST/T ABNORMALITY IN II/aVF], PROBABLY OLD ABNORMAL ECG Compared to ECG 09/29/2024 02:25:40 No significant changes Electronically Signed On 09-30-2024 09:49:57 CDT by Jamal Núñez M.D.
[2024-09-29 07:01] LABS: Cannabinoid Screen Urine Negative (Negative)
[2024-09-29] MEDS: HYDROmorphone HCL INJ (*CRX) 2 MG/ML VIAL 0.5 MG IV PUSH ×4 (08:12→23:28)
[2024-09-29 08:13] LABS: Hematocrit 33.9 % (42.0-52.0); Hemoglobin 10.8 g/dL (14.0-18.0); Immature Granulocyte Percent A 0.3 % (0-0.5); Lymphocytes Absolute Auto 0.91 K/mm3 (0.9-3.2); Mean Corpuscular HGB Conc 31.9 g/dl (32-36); Mean Corpuscular Hemoglobin 32.3 pg (26-34); Mean Corpuscular Volume 101.5 fl (80-100); Nucleated Red Blood Cells Absolute Auto 0.000 K/mm3 (0.0-0.012); Nucleated Red Blood Cells Perc 0.0 % (0.0-0.2); Platelet Count Result 104 k/mm3 (150-375); Red Blood Count 3.34 M/mm3 (4.6-6.20); White Blood Count 3.9 K/mm3 (4.5-10.0)
[2024-09-29] MEDS: THIAMINE HCL 200 MG/2 ML VIAL 100 MG IV PUSH (08:13)
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
[2024-09-29 08:36] LABS: Alanine Aminotransferase 44 U/L (6-50); Albumin Level 3.0 g/dL (3.5-5.1); Alkaline Phosphatase 88 U/L (38-126); Anion Gap 4 mmol/L (4-12); Aspartate Amino Transferase 63 U/L (17-59); Bilirubin,Total 0.5 mg/dL (0.2-1.3); Blood Urea Nitrogen 7 mg/dL (9-20); Calcium 8.4 mg/dL (8.4-10.2); Carbon Dioxide 24 mmol/L (22-30); Chloride 110 mmol/L (98-107); Estimated CRCL calculation 96 ml/min; Estimated Glomerular Filt Rate > 60; Glucose 161 mg/dL (65-110); Magnesium 1.9 mg/dL (1.6-2.3); Potassium 3.8 mmol/L (3.4-5.0); Sodium 138 mmol/L (137-145); Total Protein 5.6 g/dL (6.3-8.2)
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
[2024-09-29] MEDS: THIAMINE HCL INJ 100 MG, FOLIC ACID INJ 1 MG, MAGNESIUM SULFATE INJ 1 GM, MULTIVITAMINS... 125 MG IV CONT (11:14)
[2024-09-29] MEDS: CLOPIDOGREL BISULFATE 75 MG TABLET PO (11:14)
[2024-09-29] MEDS: LORazepam INJ (*CRX) 2 MG/ML VIAL 1 MG IV PUSH ×3 (11:15→21:02)
[2024-09-29] MEDS: chlordiazePOXIDE (*CRX) 25 MG CAPSULE PO ×2 (14:16→22:48)
--- NOTE | 2024-09-29 15:57 | PCNEURO ---
Entered room to perform EEG. Could not get impedances down. Pt stated he had gone swimming and didn't shower after. Will come back at beginning of next shift (7/15 AM) to complete.
[2024-09-29] MEDS: INSULIN ASPART (*BKC) 100 UNITS/ML SUB-Q ×2 (16:34→21:06)
[2024-09-29] MEDS: ATORVASTATIN 40 MG TABLET PO (16:35)
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
[2024-09-29 18:57] LABS: Cholesterol 127 mg/dL (0-200); HDL Direct 67 mg/dL; Triglycerides 109 mg/dL (<150)
[2024-09-29 20:09] LABS: Vitamin B12 874.0 pg/mL (239-931)
[2024-09-30] VITALS (17 sets, daily range): BP systolic 133–181; BP diastolic 73–91; PULSE 70–84; RESP 16–20; TEMP 36.4–36.9; O2SAT 97–100
[2024-09-30] MEDS: LORazepam INJ (*CRX) 2 MG/ML VIAL 1 MG IV PUSH ×3 (01:05→09:18)
[2024-09-30] MEDS: HYDROmorphone HCL INJ (*CRX) 2 MG/ML VIAL 0.5 MG IV PUSH ×4 (05:02→22:12)
[2024-09-30] MEDS: chlordiazePOXIDE (*CRX) 25 MG CAPSULE PO ×3 (05:34→22:12)
--- NOTE | 2024-09-30 06:00 | ECHO_ITS ---
Patient Info Name: Marcel Spencer Age: 59 years : 1965 Gender: Male Ht: 70 in Wt: 178 lbs BSA: 2.01 m2 HR: 73 bpm BP: 160 / 76 mmHg Heart Rhythm: Sinus Rhythm Technical Quality: Fair Exam Date: 09/30/2024 10:18 AM Patient Status: O Admit Date: 09/29/2024 Exam Type: CA echo dop color flow w con Complete two-dimensional, color flow and Doppler transthoracic echocardiogram is performed with contrast to opacify the left ventricle and to improve the deliniation of the left ventricle endocardial borders. Staff Referring Physician: Shakir Vallecillo Lead Consultant: Marry Serrano Attending Provider: Bridgette Oliveros Contrast/Agitated Saline Contrast/Ag. Saline: Definity Amount: 3.00 ml Administered By: Marry Serrano Existing IV Access: Yes IV Access Condition: patent with no signs of infiltration Summary 1. Normal left ventricular size with inferior hypokinesia overall normal ejection fraction. 2. Definity contrast used to improve visualization. 3. Grade 1 diastolic noncompliance. 4. No significant valvular dysfunction. Left Ventricle Left ventricular chamber dimension is normal. Left ventricular systolic function is normal, estimated at 60-65. The left ventricular diastolic function is grade I diastolic dysfunction. Right Ventricle Right ventricular chamber dimension is normal. Left Atria Left atrial chamber dimension is normal. Right Atria Right atrial chamber dimension is normal. Aortic Valve The aortic valve is normal. Pulmonic Valve The pulmonic valve is not well visualized. Mitral Valve The mitral valve has normal leaflets. Tricuspid Valve The tricuspid valve leaflets are normal. Pericardium/Pleural The pericardium appears normal. Aorta The aortic root size at the sinus of Valsalva is normal. Left Ventricular Outflow Tract Name Value Normal LVOT 2D LVOT Diameter 2.0 cm LVOT Doppler LVOT Peak Velocity 71 cm/s LVOT Peak Gradient 2 mmHg LVOT Mean Gradient 1 mmHg LVOT VTI 15 cm LVOT VTI/AV VTI Ratio 0.8 LVOT Stroke Volume 50 ml LVOT CO 3.8 l/min LVOT CI 1.9 l/min/m2 Mitral Valve Name Value Normal MV Diastolic Function MV E Peak Velocity 68 cm/s MV A Peak Velocity 85 cm/s MV E/A 0.8 MV Decel Time (PW) 224 ms MV Annular TDI MV E/e' (Septal) 22.8 MV E/e' (Lateral) 8.6 MV E/e' (Average) 15.7 Tricuspid Valve Name Value Normal TV Annular TDI TV Lateral Carli s' Velocity 6.3 cm/s >=9.5 Aortic Valve Name Value Normal AV Doppler AV Peak Velocity 99 cm/s AV Peak Gradient 4 mmHg AV Mean Gradient 2 mmHg AV VTI 20 cm AV Area (Cont Eq VTI) 2.5 cm2 >=3.0 AV Area (Cont Eq Benjamin) 2.4 cm2 AV DI (Benjamin) 0.72 AV Regurgitation 2D LVOT Area 3.3 cm2 Ventricles Name Value Normal LV Dimensions 2D/MM IVS Diastolic Thickness (2D) 1.0 cm 0.6-1.0 LVID Diastole (2D) 5.2 cm 4.2-5.8 LVIW Diastolic Thickness (2D) 1.0 cm 0.6-1.0 LVID Systole (2D) 4.3 cm 2.5-4.0 LVOT Diameter 2.0 cm LV Mass (2D Cubed) 196.41 g 88.00-224.00 LV Mass Index (2D Cubed) 98 g/m2 49-115 Relative Wall Thickness (2D) 0.39 <=0.42 LV Fractional Shortening/Ejection Fraction 2D/MM LV Fractional Shortening (2D) 17 % 25-43 LV EF (2D Teichholz) 35 % LV Diastolic Volume (4C MOD) 76 ml LV EF (4C MOD) 48 % LV Diastolic Volume (2C MOD) 33 ml LV EF (2C MOD) 39 % LV Diastolic Volume (BP MOD) 50 ml 62-150 LV Diastolic Volume Index (BP MOD) 25 ml/m2 34-74 LV Systolic Volume (BP MOD) 29 ml 21-61 LV Systolic Volume Index (BP MOD) 15 ml/m2 11-31 LV EF (BP MOD) 41 % 52-72 LV Diastolic Length (4C) 7.3 cm LV Systolic Length (4C) 6.5 cm LV Stroke Volume (4C MOD) 37 ml Atria Name Value Normal LA Dimensions LA Volume (4C A-L) 40 ml LA Volume (BP A-L) 46 ml RA Dimensions RA Area (4C) 21.2 cm2 <=18.0 Report Signatures
[2024-09-30] MEDS: CLOPIDOGREL BISULFATE 75 MG TABLET PO (09:17)
[2024-09-30] MEDS: THIAMINE HCL 200 MG/2 ML VIAL 100 MG IV PUSH (09:18)
[2024-09-30] MEDS: INSULIN ASPART (*BKC) 100 UNITS/ML SUB-Q ×4 (09:20→20:26)
--- NOTE | 2024-09-30 09:30 | P.PNIM_ITS ---
Progress Note: A&P Assessment and Plan (1) Chest pain: Code(s): R07.9 - Chest pain, unspecified Status: Acute (2) NSTEMI (non-ST elevation myocardial infarction): Code(s): I21.4 - Non-ST elevation (NSTEMI) myocardial infarction Status: Acute (3) Supraventricular tachycardia: Code(s): I47.10 - Supraventricular tachycardia, unspecified Status: Acute (4) Uncontrolled type 2 diabetes mellitus: Status: Acute (5) Hypotension (arterial): Code(s): I95.9 - Hypotension, unspecified Status: Acute (6) Alcohol abuse: Code(s): F10.10 - Alcohol abuse, uncomplicated Status: Acute (7) Alcohol intoxication: Code(s): F10.929 - Alcohol use, unspecified with intoxication, unspecified Status: Acute (8) Witnessed seizure-like activity: Code(s): R56.9 - Unspecified convulsions Status: Acute Plan Seizure Patient has history of seizure, unclear diagnosis, alcohol withdrawal seizure/al cohol intoxication? Head frequent seizure in past 2 weeks Patient had another seizure yesterday after having drinking Possible due to noncompliant with medications and alcohol intoxication CT head shows no acute intracranial issues Seizure precaution Patient received Keppra in the ED Pending EEG Consult neurologist for evaluation treatment Increase Keppra to 750 mg b.i.d. p.o. per neurologist recommendation Alcohol intoxication, alcohol withdrawal Continue banana bag 125 mL/hour on Librium 25 mg q.8.d. hours p.o. Ativan 2 mg 2 to hour p.r.n. IV push per CIWA protocol Chest pain Patient has history of CABG possible unstable angina Elevated troponin EKG shows sinus rhythm no specific ST T-wave changes Continue Plavix 75 mg daily p.o. Pending echocardiogram Consult keymodule assembly machine tender for evaluation treatment Appreciate keymodule assembly machine tender input Hypotension Received fluid resuscitation become stable Alcohol abuse Alcohol intoxication Advised patient about stop drinking Provide thiamine folic acid Monitor alcohol withdrawal per CIWA protocol Start Librium and Ativan p.r.n. Start D5 normal saline 75 mL/hour Activation Anemia Hemoglobin stable since discharge Iron deficient anemia Alcoholic gastritis Patient has epigastric pain Possible alcoholic gastritis start Protonix 40 mg daily IV Type 2 diabetes Start insulin sliding scale a.c. q.h.s. Subjective Date/time seen: 09/30/24 09:30 Interval history: I saw exam patient today. Patient has no seizure overnight, afebrile over stable Patient still has chest pain back pain. Patient is anxious, no visual hallucination Patient is afebrile over the night Exam Narrative: GENERAL: Ill-appearing, in no acute distress. Well-nourished. - EYES: EOMI. Anicteric. - HENT: Moist mucous membranes. - LUNGS: Clear to auscultation bilateral ly, no wheezing, rhonchi, or rales. - CARDIOVASCULAR: Regular rate and rhyth m. No murmur. No JVD. Reproducible left chest wall pain - ABDOMEN: Soft, epigastric tender and n on-distended. No palpable masses. - EXTREMITIES: No edema. Peripheral puls es 2+. Non-tender. - NEUROLOGIC: No focal neurological defi cits. CN II-XII grossly intact. - PSYCHIATRIC: Awake, Alert and oriented x 3. Anxious, mood and affect. - SKIN: No rashes or lesions. Warm. - LYMPH: No cervical lymphadenopathy. Objective Data Vital Signs Vital Signs: Vital Signs - 24 hr 09/29/24 10:00 09/29/24 10:00 09/29/24 11:41 Temperature 98.7 F Pulse Rate 74 88 81 Respiratory Rate 20 20 Blood Pressure 128/77 Pulse Oximetry 98 97 Oxygen Delivery Room Air Fraction of Inspired Oxygen 21 09/29/24 11:41 09/29/24 12:00 09/29/24 12:00 Temperature 98.7 F Pulse Rate 81 85 Respiratory Rate 20 Blood Pressure 128/77 Pulse Oximetry 97 97 Oxygen Delivery Room Air Fraction of Inspired Oxygen 09/29/24 14:00 09/29/24 15:50 09/29/24 16:00 Temperature 98.4 F Pulse Rate 76 72 Respiratory Rate 20 Blood Pressure 135/63 Pulse Oximetry 99 99 Oxygen Delivery Room Air Fraction of Inspired Oxygen 09/29/24 16:00 09/29/24 18:00 09/29/24 20:00 Temperature Pulse Rate 79 77 Respiratory Rate Blood Pressure Pulse Oximetry 99 Oxygen Delivery Room Air Fraction of Inspired Oxygen 09/29/24 20:00 09/29/24 20:00 09/29/24 21:55 Temperature 98.2 F Pulse Rate 76 80 75 Respiratory Rate 20 Blood Pressure 141/67 H Pulse Oximetry 98 Oxygen Delivery Fraction of Inspired Oxygen 09/29/24 23:22 09/30/24 00:00 09/30/24 00:00 Temperature 98.2 F Pulse Rate 87 76 Respiratory Rate 20 Blood Pressure 152/81 H Pulse Oximetry 97 99 Oxygen Delivery Room Air Fraction of Inspired Oxygen 09/30/24 02:00 09/30/24 03:59 09/30/24 04:00 Temperature 98.4 F Pulse Rate 74 73 Respiratory Rate 20 Blood Pressure 160/76 H Pulse Oximetry 99 99 Oxygen Delivery Room Air Fraction of Inspired Oxygen 09/30/24 04:00 09/30/24 05:57 09/30/24 07:52 Temperature 97.8 F Pulse Rate 74 73 81 Respiratory Rate 20 Blood Pressure 154/73 H Pulse Oximetry 98 Oxygen Delivery Fraction of Inspired Oxygen Intake/Output Intake/Output: Intake & Output 09/27/24 09/28/24 09/29/24 09/30/24 23:59 23:59 23:59 23:59 Intake Total 1100 1812 350 Output Total 2951 600 Balance 1100 -4573 -250 Meds/Results Medications: Active Medications Generic Name Dose Route Start Last Admin Trade Name Freq PRN Reason Stop Dose Admin Acetaminophen 650 mg 09/29/24 01:17 09/29/24 16:35 Acetaminophen 325 Mg Tablet PO 650 mg Q4H PRN Administration Mild Pain (1-3) or Fever Atorvastatin Calcium 40 mg 09/29/24 18:00 09/29/24 16:35 Atorvastatin 40 Mg Tablet PO 40 mg QPM RAO Administration Chlordiazepoxide HCl 25 mg 09/29/24 14:00 09/30/24 05:34 Chlordiazepoxide (*Crx) 25 Mg Capsule PO 25 mg Q8HR RAO Administration Clopidogrel Bisulfate 75 mg 09/29/24 09:00 09/30/24 09:17 Clopidogrel Bisulfate 75 Mg Tablet PO 75 mg DAILY RAO Administration Dextrose 12.5 gm 09/29/24 01:17 Dextrose 50% 25 Gm/50 Ml Syringe IV PUSH PRN PRN Hypoglycemia Protocol Glucose 15 gm 09/29/24 01:17 Glucose Oral Gel 15 Gm Of Glucse In 37.5 Gm Tube PO PRN PRN Hypoglycemia Protocol Hydromorphone HCl 0.5 mg 09/29/24 07:59 09/30/24 05:02 Hydromorphone Hcl Inj (*Crx) 2 Mg/Ml Vial IV PUSH 0.5 mg Q4H PRN Administration Pain Rated 7-10 Dextrose 1,000 mls @ 100 mls/hr 09/29/24 01:17 Dextrose 5% 1,000 Ml IVPB PRN PRN Hypoglycemia Protocol Insulin Aspart 2 - 5 units 09/29/24 08:00 09/30/24 09:20 Insulin Aspart (*Bkc) 100 Units/Ml SUB-Q 3 units TIDWM RAO Administration Protocol Insulin Aspart 1 - 2 units 09/29/24 21:00 09/29/24 21:06 Insulin Aspart (*Bkc) 100 Units/Ml SUB-Q 1 units HS RAO Administration Protocol Lorazepam 2 mg 09/28/24 22:47 Lorazepam Inj (*Crx) 2 Mg/Ml Vial IV PUSH Q2H PRN CIWA > 15 Lorazepam 1 mg 09/29/24 09:00 09/30/24 09:18 Lorazepam Inj (*Crx) 2 Mg/Ml Vial IV PUSH 1 mg Q4HR RAO Administration Nitroglycerin 0.4 mg 09/29/24 02:44 09/29/24 07:49 Nitroglycerin Sl 0.4 Mg Tablet SUBLINGUAL 0.4 mg Q5MIN PRN Administration Chest Pain Ondansetron HCl 4 mg 09/29/24 08:59 Ondansetron Inj 4 Mg/2 Ml Vial IV PUSH Q6H PRN Nausea And Vomiting Perflutren Lipid Microsphere 0 ml 09/29/24 01:17 Perflutren Lipid Microspheres 1.5 Ml Vial Diluted To 10 Ml Total Volume IV PUSH 10/02/24 01:18 ONCE PRN adequate visualization Protocol Thiamine HCl 100 mg 09/29/24 09:00 09/30/24 09:18 Thiamine Hcl 200 Mg/2 Ml Vial IV PUSH 100 mg DAILY RAO Administration Radiology Results: ITS Impressions Chest X-Ray 09/28/24 21:33 IMPRESSION: Cardiomegaly. Minimal opacification in the left lung base which may indicate atelectatic changes. Clinical correlation advised. Chest CTA 09/29/24 05:38 Impression: No evidence of pulmonary embolus, aortic dissection, or aortic aneurysm. Clear lungs. Probable extensive narrowing of the right subclavian vein with extensive collateral vessel formation throughout the right upper thorax. Chronic compression fractures of L1 and T11, as detailed above. Head CT 09/29/24 05:38 Impression: No acute abnormality seen. 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 Labs Labs: Laboratory Results - last 24 hr 09/29/24 09/29/24 09/29/24 15:26 18:19 20:51 POC Capillary Glucose 269 H 261 H Triglycerides 109 Cholesterol 127 LDL Cholesterol Direct 40 HDL Direct 67 Vitamin B12 874.0 Vitamin D 25-Hydroxy 20.9 Folate > 20.0 H 09/29/24 09/30/24 23:40 07:26 POC Capillary Glucose 232 H 281 H Triglycerides Cholesterol LDL Cholesterol Direct HDL Direct Vitamin B12 Vitamin D 25-Hydroxy Folate
[2024-09-30] MEDS: PERFLUTREN LIPID MICROSPHERES 1.5 ML VIAL DILUTED TO 10 ML TOTAL VOLUME IV PUSH (10:40)
--- NOTE | 2024-09-30 11:17 | IVDEFINITY ---
Prior to administration of IV Definity the patient was educated on the risks and benefits of the imaging enhancing agent including potential adverse side effects. The patient verbalized understanding. Allergies were verified. No exclusion criteria were identified and at least one of the following inclusion criteria were met: 1) physician request, 2) patient technically difficult to image (per the [place] [employer] guidelines of two or more segments not discernable within the apical view), or 3) questionable left ventricular function. ?
--- NOTE | 2024-09-30 12:47 | WPDNEUROLOGY ---
Neurology EEG Report General Information Date of Study: 09/30/24 TEST EEG DIAGNOSIS Seizure CONDITION OF RECORDING awake, drowsy and sleep. EEG NUMBER [id number] CLINICAL HISTORY Patient's daughter reported, patient was drinking a single [employer] hard lemonade when he fell forward, passed out, and had some shaking activity. Patient had previous seizure 2 weeks ago. EEG DESCRIPTION Basic resting occipital frequency consists of low to medium voltage 9 to 11 hertz per 2nd alpha admixed with low-voltage 15 to 18 hertz per 2nd beta. Alpha activity symmetrically blocked with eyes opening. During drowsiness low voltage beta activity seen diffusely admixed with waxing and waning posterior alpha rhythm. Bilateral symmetrical sleep activity is noted with symmetrical sleep spindles. Hyperventilation not done. Photic stimulation not done. Non paroxysmal. Nonfocal. Nonlateralizing. IMPRESSION Normal record. Clinical correlation recommended ,normal EEG does not rule out the possibility of seizures.
[2024-09-30] MEDS: ATORVASTATIN 40 MG TABLET PO ×2 (17:30→17:31)
[2024-09-30] MEDS: LOSARTAN POTASSIUM 50 MG TABLET PO (18:09)
--- NOTE | 2024-09-30 18:21 | PC.NURSE ---
BP of 181/[address] Rosas. Order for Losartan to be resumed. Pt transferred to 313, report given to Cayla WALLS
[2024-09-30] MEDS: levETIRAcetam Tablet 250 MG, levETIRAcetam Tablet 500 MG 750 MG PO (20:27)
[2024-10-01] VITALS (10 sets, daily range): BP systolic 115–136; BP diastolic 53–79; PULSE 77–89; RESP 16; TEMP 36.3–36.7; O2SAT 97–99
[2024-10-01] MEDS: HYDROmorphone HCL INJ (*CRX) 2 MG/ML VIAL 0.5 MG IV PUSH ×4 (02:45→22:05)
[2024-10-01] MEDS: chlordiazePOXIDE (*CRX) 25 MG CAPSULE PO ×3 (05:42→20:18)
[2024-10-01] MEDS: levETIRAcetam Tablet 250 MG, levETIRAcetam Tablet 500 MG 750 MG PO ×2 (09:07→20:18)
[2024-10-01] MEDS: CLOPIDOGREL BISULFATE 75 MG TABLET PO (09:07)
[2024-10-01] MEDS: THIAMINE HCL 200 MG/2 ML VIAL 100 MG IV PUSH (09:07)
[2024-10-01] MEDS: LOSARTAN POTASSIUM 50 MG TABLET PO (09:07)
[2024-10-01] MEDS: INSULIN ASPART (*BKC) 100 UNITS/ML SUB-Q ×4 (09:08→20:16)
[2024-10-01] MEDS: FOLIC ACID 1 MG TABLET PO (09:15)
[2024-10-01] MEDS: MULTIVITAMINS THERAPEUTIC TAB (*BKC) 1 TABLET PO (09:15)
[2024-10-01] MEDS: ASPIRIN 81 MG ENTERIC TABLET PO (09:15)
[2024-10-01 09:27] LABS: Hematocrit 38.9 % (42.0-52.0); Hemoglobin 12.7 g/dL (14.0-18.0); Immature Platelet Fraction Pct 3.5 % (0.9-11.2); Mean Corpuscular HGB Conc 32.6 g/dl (32-36); Mean Corpuscular Hemoglobin 32.6 pg (26-34); Mean Corpuscular Volume 99.7 fl (80-100); Platelet Count Result 132 k/mm3 (150-375); Red Blood Count 3.90 M/mm3 (4.6-6.20); White Blood Count 4.9 K/mm3 (4.5-10.0)
[2024-10-01 09:47] LABS: Alanine Aminotransferase 38 U/L (6-50); Albumin Level 3.8 g/dL (3.5-5.1); Alkaline Phosphatase 96 U/L (38-126); Anion Gap 6 mmol/L (4-12); Aspartate Amino Transferase 49 U/L (17-59); Bilirubin,Total 0.6 mg/dL (0.2-1.3); Blood Urea Nitrogen 11 mg/dL (9-20); Calcium 9.2 mg/dL (8.4-10.2); Carbon Dioxide 28 mmol/L (22-30); Chloride 100 mmol/L (98-107); Estimated CRCL calculation 86 ml/min; Estimated Glomerular Filt Rate > 60; Glucose 274 mg/dL (65-110); Magnesium 1.7 mg/dL (1.6-2.3); Potassium 4.3 mmol/L (3.4-5.0); Sodium 134 mmol/L (137-145); Total Protein 6.6 g/dL (6.3-8.2)
--- NOTE | 2024-10-01 10:32 | P.PNCA_ITS ---
Progress Note: A&P Assessment and Plan (1) Chest pain: Code(s): R07.9 - Chest pain, unspecified Status: Acute (2) Elevated troponin: Code(s): R79.89 - Other specified abnormal findings of blood chemistry Status: Acute (3) Coronary artery disease: Code(s): I25.10 - Atherosclerotic heart disease of [place] coronary artery without angina pectoris Status: Acute Plan 59-year-old man with CAD status post CABG (10/2023 at [facility]), alcohol abuse, diabetes, and hypertension was brought in by EMS for possible seizures Chest pain -reproducible on physical examination unlikely cardiac in nature Troponin elevation -very minimal and likely acute plaque rupture -overall preserved biventricular systolic function -regional wall motion abnormalities likely secondary to his underlying disease requiring CABG CAD status post CABG -recommend to continue both aspirin 81 mg p.o. daily and Plavix 75 mg p.o. daily -continue atorvastatin 40 mg every evening Will follow-up p.r.n. Subjective Date/time seen: 10/01/24 10:32 Interval history: Patient has tenderness over the left chest region more towards the left upper quadrant of the abdomen as well as the back with a significant tender area on the left side of his back Review of Systems Cardiovascular: Cardiovascular: Reports as per HPI Respiratory: Respiratory: Reports as per HPI Exam Const: General: comfortable HENMT: Mouth: Yes moist mucous membranes Eyes: EOM: EOMs intact bilaterally Neck: Neck: no JVD Resp: Effort & Inspection: normal respiratory effort Auscultation: clear to auscultation bilaterally Cardio: Rate: regular rate Rhythm: regular rhythm Extrem: General: no pedal edema Objective Data Vital Signs Vital Signs: Vital Signs - 24 hr 09/30/24 11:44 09/30/24 12:00 09/30/24 14:00 Temperature 36.4 C L Pulse Rate 70 77 74 Respiratory Rate 20 Blood Pressure 163/77 H Pulse Oximetry 100 09/30/24 16:00 09/30/24 16:18 09/30/24 18:00 Temperature 36.7 C Pulse Rate 78 80 84 Respiratory Rate 20 Blood Pressure 181/91 H Pulse Oximetry 97 09/30/24 20:00 09/30/24 20:20 09/30/24 21:22 Temperature 36.7 C Pulse Rate 84 83 Respiratory Rate 16 Blood Pressure 133/77 133/77 Pulse Oximetry 97 10/01/24 00:00 10/01/24 00:00 10/01/24 04:00 Temperature Pulse Rate 77 Respiratory Rate Blood Pressure 133/77 133/77 Pulse Oximetry 10/01/24 04:36 10/01/24 06:09 Temperature 36.7 C Pulse Rate 84 89 Respiratory Rate 16 Blood Pressure 136/77 Pulse Oximetry 98 Intake/Output Intake/Output: Intake & Output 09/28/24 09/29/24 09/30/24 10/01/24 23:59 23:59 23:59 23:59 Intake Total 1100 1812 1270 400 Output Total 2951 1950 1025 Balance 1100 -1139 -680 -625 Meds/Results Medications: Active Medications Generic Name Dose Route Start Last Admin Trade Name Freq PRN Reason Stop Dose Admin Acetaminophen 650 mg 09/29/24 01:17 09/29/24 16:35 Acetaminophen 325 Mg Tablet PO 650 mg Q4H PRN Administration Mild Pain (1-3) or Fever Aspirin 81 mg 10/01/24 09:00 10/01/24 09:15 Aspirin 81 Mg Enteric Tablet PO 81 mg QAM RAO Administration Atorvastatin Calcium 40 mg 09/29/24 18:00 09/30/24 17:31 Atorvastatin 40 Mg Tablet PO 40 mg QPM RAO Administration Chlordiazepoxide HCl 25 mg 09/29/24 14:00 10/01/24 05:42 Chlordiazepoxide (*Crx) 25 Mg Capsule PO 25 mg Q8HR RAO Administration Clopidogrel Bisulfate 75 mg 09/29/24 09:00 10/01/24 09:07 Clopidogrel Bisulfate 75 Mg Tablet PO 75 mg DAILY RAO Administration Dextrose 12.5 gm 09/29/24 01:17 Dextrose 50% 25 Gm/50 Ml Syringe IV PUSH PRN PRN Hypoglycemia Protocol Folic Acid 1 mg 10/01/24 09:05 10/01/24 09:15 Folic Acid 1 Mg Tablet PO 1 mg DAILY RAO Administration Glucose 15 gm 09/29/24 01:17 Glucose Oral Gel 15 Gm Of Glucse In 37.5 Gm Tube PO PRN PRN Hypoglycemia Protocol Hydromorphone HCl 0.5 mg 09/29/24 07:59 10/01/24 09:15 Hydromorphone Hcl Inj (*Crx) 2 Mg/Ml Vial IV PUSH 0.5 mg Q4H PRN Administration Pain Rated 7-10 Dextrose 1,000 mls @ 100 mls/hr 09/29/24 01:17 Dextrose 5% 1,000 Ml IVPB PRN PRN Hypoglycemia Protocol Insulin Aspart 2 - 5 units 09/29/24 08:00 10/01/24 09:08 Insulin Aspart (*Bkc) 100 Units/Ml SUB-Q 3 units TIDWM RAO Administration Protocol Insulin Aspart 1 - 2 units 09/29/24 21:00 09/30/24 20:26 Insulin Aspart (*Bkc) 100 Units/Ml SUB-Q 1 units HS RAO Administration Protocol Levetiracetam 250 mg/ 750 mg 09/30/24 21:00 10/01/24 09:07 Levetiracetam 500 mg PO 750 mg Q12HR RAO Administration Lorazepam 2 mg 09/28/24 22:47 Lorazepam Inj (*Crx) 2 Mg/Ml Vial IV PUSH Q2H PRN CIWA > 15 Lorazepam 1 mg 09/30/24 14:17 Lorazepam Inj (*Crx) 2 Mg/Ml Vial IV PUSH Q2HR PRN until stable. (For CIWA >15 or High Risk) Losartan Potassium 50 mg 09/30/24 18:00 10/01/24 09:07 Losartan Potassium 50 Mg Tablet PO 50 mg DAILY RAO Administration Multivitamins Therapeutic 1 tablet 10/01/24 09:05 10/01/24 09:15 Multivitamins Therapeutic Tab (*Bkc) PO 1 tablet QAM RAO Administration Nitroglycerin 0.4 mg 09/29/24 02:44 09/29/24 07:49 Nitroglycerin Sl 0.4 Mg Tablet SUBLINGUAL 0.4 mg Q5MIN PRN Administration Chest Pain Ondansetron HCl 4 mg 09/29/24 08:59 Ondansetron Inj 4 Mg/2 Ml Vial IV PUSH Q6H PRN Nausea And Vomiting Thiamine HCl 100 mg 09/29/24 09:00 10/01/24 09:07 Thiamine Hcl 200 Mg/2 Ml Vial IV PUSH 100 mg DAILY RAO Administration Radiology Results: ITS Impressions Chest X-Ray 09/28/24 21:33 IMPRESSION: Cardiomegaly. Minimal opacification in the left lung base which may indicate atelectatic changes. Clinical correlation advised. Chest CTA 09/29/24 05:38 Impression: No evidence of pulmonary embolus, aortic dissection, or aortic aneurysm. Clear lungs. Probable extensive narrowing of the right subclavian vein with extensive collateral vessel formation throughout the right upper thorax. Chronic compression fractures of L1 and T11, as detailed above. Head CT 09/29/24 05:38 Impression: No acute abnormality seen. 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 Carotid Doppler Study 09/30/24 17:07 IMPRESSION: 1. Less than 50% stenosis in the right internal carotid artery by sonographic criteria. 2. Less than 50% stenosis in the left internal carotid artery by sonographic criteria. Labs Labs: Laboratory Results - last 24 hr 09/30/24 09/30/24 09/30/24 11:17 16:23 20:20 WBC RBC Hgb Hct MCV MCH MCHC RDW Plt Count MPV % Immature Plt Fraction Sodium Potassium Chloride Carbon Dioxide Anion Gap BUN Creatinine Estim Creat Clear Calc Estimated GFR Glucose POC Capillary Glucose 257 H 280 H 246 H Calcium Magnesium Total Bilirubin AST ALT Alkaline Phosphatase Total Protein Albumin 10/01/24 10/01/24 08:01 09:20 WBC 4.9 RBC 3.90 L Hgb 12.7 L Hct 38.9 L MCV 99.7 MCH 32.6 MCHC 32.6 RDW 15.3 H Plt Count 132 L MPV 9.8 % Immature Plt Fraction 3.5 Sodium 134 L Potassium 4.3 Chloride 100 Carbon Dioxide 28 Anion Gap 6 BUN 11 Creatinine 0.82 Estim Creat Clear Calc 86 Estimated GFR > 60 Glucose 274 H POC Capillary Glucose 261 H Calcium 9.2 Magnesium 1.7 Total Bilirubin 0.6 AST 49 ALT 38 Alkaline Phosphatase 96 Total Protein 6.6 Albumin 3.8
--- NOTE | 2024-10-01 15:54 | P.PNIM_ITS ---
Progress Note: A&P Assessment and Plan (1) Chest pain: Code(s): R07.9 - Chest pain, unspecified Status: Acute Assessment and Plan: Patient has history of CABG possible unstable angina, Elevated troponin, CTA n egative for PE or dissection * EKG shows sinus rhythm no specific ST T-wave changes * Continue Plavix 75 mg daily p.o. * Grade 1 diastolic dysfunction LVEF at 60-65% * Consult cbx operator for evaluation treatment * reproducible cardiology this time ruled out ACS (2) NSTEMI (non-ST elevation myocardial infarction): Code(s): I21.4 - Non-ST elevation (NSTEMI) myocardial infarction Status: Acute Assessment and Plan: SEE above (3) Uncontrolled type 2 diabetes mellitus: Status: Acute Assessment and Plan: * holding at glipizide and metformin * Accu-Cheks a.c. HS * diabetic diet * SSI low-dose * hypoglycemic protocol (4) Alcohol abuse: Code(s): F10.10 - Alcohol abuse, uncomplicated Status: Acute Assessment and Plan: patient with long history alcohol abuse could be cause patient's seizure-like activity * Banana bag/IV fluids completed * Thiamine, folic acid, and multi-vitamin * librium * Ativan PRN for seizure activity * CIWA daily * Monitor and replenish electrolytes as needed * Seizure precautions if indicated * Provided resources for recovery (5) Witnessed seizure-like activity: Code(s): R56.9 - Unspecified convulsions Status: Acute Assessment and Plan: Patient has history of seizure, unclear diagnosis, alcohol withdrawal seizure/alcohol intoxication, Head frequent seizure in past 2 weeks. Patient had another seizure yesterday after having drinking. Possible due to noncompliant with medications and alcohol intoxication * CT head shows no acute intracranial issues * Seizure precaution * Patient received Keppra in the ED * EEG normal * Consult neurologist for evaluation treatment * Increased Keppra to 750 mg b.i.d. p.o. per neurologist recommendation Plan Code status: Full code per patient DVT prophylaxis: Lovenox Stress ulcer prophylaxis: Protonix 40 daily PT/OT notes: ambulatory Disposition: patient continues admission and treatment seizure-like activity, ETOH abuse with withdrawals and chest pain ACS ruled out at this EEG was normal did increase patient's Keppra to 750 continue with Librium for alcohol withdrawal symptoms likely be able to discharge tomorrow if no further events overnight. patient lives in [place] plan to fly back home when able Time Spent With Patient Time with patient: 15 - 25 minutes Subjective Date/time seen: 10/01/24 15:54 Interval history: Patient is a 5-year-old male is admitted for further evaluation seizure-like activity witnessed, fall, chest pain, in ETOH withdrawal. 10/01/2024: Patient still with complaints of lower back pain has chronic compression fractures of the L1 and T11. UA was negative. Denies CP but still feels weak and overall not well but tolerating oral intake with no N/V. Upon evaluation asymptomatic withdrawal symptoms Review of Systems Review of Systems: ROS negative except above All systems reviewed & are unremarkable except as noted in HPI and below Exam Narrative: GENERAL: Male in no acute distress. Well-nourished. No tremors or diaphoresis - EYES: EOMI. Anicteric. - HENT: Moist mucous membranes. - LUNGS: Clear to auscultation - CARDIOVASCULAR: RRR. Reproducible lef t chest wall pain - ABDOMEN: Soft, epigastric tender and n on-distended. - EXTREMITIES: No edema. Peripheral puls es 2+. Non-tender. - NEUROLOGIC: No focal neurological defi cits. - PSYCHIATRIC: Awake, Alert and oriented x 3. - SKIN: No rashes or lesions. Warm. Objective Data Vital Signs Vital Signs: Vital Signs - 24 hr 09/30/24 16:00 09/30/24 16:18 09/30/24 18:00 Temperature 98.0 F Pulse Rate 78 80 84 Respiratory Rate 20 Blood Pressure 181/91 H Pulse Oximetry 97 Oxygen Delivery 09/30/24 20:00 09/30/24 20:20 09/30/24 21:22 Temperature 98.1 F Pulse Rate 84 83 Respiratory Rate 16 Blood Pressure 133/77 133/77 Pulse Oximetry 97 Oxygen Delivery 10/01/24 00:00 10/01/24 00:00 10/01/24 04:00 Temperature Pulse Rate 77 Respiratory Rate Blood Pressure 133/77 133/77 Pulse Oximetry Oxygen Delivery 10/01/24 04:36 10/01/24 06:09 10/01/24 09:05 Temperature 98.1 F Pulse Rate 84 89 Respiratory Rate 16 Blood Pressure 136/77 Pulse Oximetry 98 Oxygen Delivery Room Air 10/01/24 09:05 10/01/24 14:00 Temperature 97.4 F L Pulse Rate 89 77 Respiratory Rate 16 Blood Pressure 128/53 L Pulse Oximetry 99 Oxygen Delivery Intake/Output Intake/Output: Intake & Output 09/28/24 09/29/24 09/30/24 10/01/24 23:59 23:59 23:59 23:59 Intake Total 1100 1812 1270 640 Output Total 8039 2759 1024 Balance 5218 -1139 -680 -385 Meds/Results Medications: Active Medications Generic Name Dose Route Start Last Admin Trade Name Ronaldq PRN Reason Stop Dose Admin Acetaminophen 650 mg 09/29/24 01:17 09/29/24 16:35 Acetaminophen 325 Mg Tablet PO 650 mg Q4H PRN Administration Mild Pain (1-3) or Fever Aspirin 81 mg 10/01/24 09:00 10/01/24 09:15 Aspirin 81 Mg Enteric Tablet PO 81 mg QAM RAO Administration Atorvastatin Calcium 40 mg 09/29/24 18:00 09/30/24 17:31 Atorvastatin 40 Mg Tablet PO 40 mg QPM RAO Administration Chlordiazepoxide HCl 25 mg 09/29/24 14:00 10/01/24 12:37 Chlordiazepoxide (*Crx) 25 Mg Capsule PO 25 mg Q8HR RAO Administration Clopidogrel Bisulfate 75 mg 09/29/24 09:00 10/01/24 09:07 Clopidogrel Bisulfate 75 Mg Tablet PO 75 mg DAILY RAO Administration Dextrose 12.5 gm 09/29/24 01:17 Dextrose 50% 25 Gm/50 Ml Syringe IV PUSH PRN PRN Hypoglycemia Protocol Folic Acid 1 mg 10/01/24 09:05 10/01/24 09:15 Folic Acid 1 Mg Tablet PO 1 mg DAILY RAO Administration Glucose 15 gm 09/29/24 01:17 Glucose Oral Gel 15 Gm Of Glucse In 37.5 Gm Tube PO PRN PRN Hypoglycemia Protocol Hydromorphone HCl 0.5 mg 09/29/24 07:59 10/01/24 09:15 Hydromorphone Hcl Inj (*Crx) 2 Mg/Ml Vial IV PUSH 0.5 mg Q4H PRN Administration Pain Rated 7-10 Dextrose 1,000 mls @ 100 mls/hr 09/29/24 01:17 Dextrose 5% 1,000 Ml IVPB PRN PRN Hypoglycemia Protocol Insulin Aspart 2 - 5 units 09/29/24 08:00 10/01/24 12:34 Insulin Aspart (*Bkc) 100 Units/Ml SUB-Q 2 units TIDWM RAO Administration Protocol Insulin Aspart 1 - 2 units 09/29/24 21:00 09/30/24 20:26 Insulin Aspart (*Bkc) 100 Units/Ml SUB-Q 1 units HS RAO Administration Protocol Levetiracetam 250 mg/ 750 mg 09/30/24 21:00 10/01/24 09:07 Levetiracetam 500 mg PO 750 mg Q12HR RAO Administration Lorazepam 2 mg 09/28/24 22:47 Lorazepam Inj (*Crx) 2 Mg/Ml Vial IV PUSH Q2H PRN CIWA > 15 Lorazepam 1 mg 09/30/24 14:17 Lorazepam Inj (*Crx) 2 Mg/Ml Vial IV PUSH Q2HR PRN until stable. (For CIWA >15 or High Risk) Losartan Potassium 50 mg 09/30/24 18:00 10/01/24 09:07 Losartan Potassium 50 Mg Tablet PO 50 mg DAILY RAO Administration Multivitamins Therapeutic 1 tablet 10/01/24 09:05 10/01/24 09:15 Multivitamins Therapeutic Tab (*Bkc) PO 1 tablet QAM RAO Administration Nitroglycerin 0.4 mg 09/29/24 02:44 09/29/24 07:49 Nitroglycerin Sl 0.4 Mg Tablet SUBLINGUAL 0.4 mg Q5MIN PRN Administration Chest Pain Ondansetron HCl 4 mg 09/29/24 08:59 Ondansetron Inj 4 Mg/2 Ml Vial IV PUSH Q6H PRN Nausea And Vomiting Thiamine HCl 100 mg 09/29/24 09:00 10/01/24 09:07 Thiamine Hcl 200 Mg/2 Ml Vial IV PUSH 100 mg DAILY RAO Administration Radiology Results: ITS Impressions Chest X-Ray 09/28/24 21:33 IMPRESSION: Cardiomegaly. Minimal opacification in the left lung base which may indicate atelectatic changes. Clinical correlation advised. Chest CTA 09/29/24 05:38 Impression: No evidence of pulmonary embolus, aortic dissection, or aortic aneurysm. Clear lungs. Probable extensive narrowing of the right subclavian vein with extensive collateral vessel formation throughout the right upper thorax. Chronic compression fractures of L1 and T11, as detailed above. Head CT 09/29/24 05:38 Impression: No acute abnormality seen. 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 Carotid Doppler Study 09/30/24 17:07 IMPRESSION: 1. Less than 50% stenosis in the right internal carotid artery by sonographic criteria. 2. Less than 50% stenosis in the left internal carotid artery by sonographic criteria. Labs Labs: Laboratory Results - last 24 hr 09/30/24 09/30/24 10/01/24 16:23 20:20 08:01 WBC RBC Hgb Hct MCV MCH MCHC RDW Plt Count MPV % Immature Plt Fraction Sodium Potassium Chloride Carbon Dioxide Anion Gap BUN Creatinine Estim Creat Clear Calc Estimated GFR Glucose POC Capillary Glucose 280 H 246 H 261 H Calcium Magnesium Total Bilirubin AST ALT Alkaline Phosphatase Total Protein Albumin 10/01/24 10/01/24 09:20 11:35 WBC 4.9 RBC 3.90 L Hgb 12.7 L Hct 38.9 L MCV 99.7 MCH 32.6 MCHC 32.6 RDW 15.3 H Plt Count 132 L MPV 9.8 % Immature Plt Fraction 3.5 Sodium 134 L Potassium 4.3 Chloride 100 Carbon Dioxide 28 Anion Gap 6 BUN 11 Creatinine 0.82 Estim Creat Clear Calc 86 Estimated GFR > 60 Glucose 274 H POC Capillary Glucose 227 H Calcium 9.2 Magnesium 1.7 Total Bilirubin 0.6 AST 49 ALT 38 Alkaline Phosphatase 96 Total Protein 6.6 Albumin 3.8 Quality VTE Prophylaxis VTE prophylaxis: mechanical ordered -Patient's previous records reviewed on admission -ER notes reviewed in detail on admission -discussed all findings and current treatment plan with patient/Family/POA -Consultations reviewed for recommendations -Patient's disposition for safe discharge discussed with manager case management Dictation performed by [employer] direct speech recognition software, therefore daycare teacher variants and 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 Hospitalist MIPS Advance Care Plan I have confirmed that the patient's Advanced Care Plan is present, code status is documented, or surrogate decision maker is listed in patient medical record.: Yes Medication Reconciliation I have utilized all available resources to obtain, update and review the patients current medications (includes all prescriptions, OTC, herbals, cannabis, and nutritional supplements).: Yes The patient is not eligible for med reconciliation; the patient is in a emergent medical situation where delaying treatment would jeopardize the patients health.: No
[2024-10-02] VITALS (9 sets, daily range): BP systolic 134–154; BP diastolic 76–83; PULSE 77–101; RESP 16; TEMP 35.9–36.6; O2SAT 97–99
[2024-10-02] MEDS: HYDROmorphone HCL INJ (*CRX) 2 MG/ML VIAL 0.5 MG IV PUSH ×2 (02:33→07:15)
[2024-10-02] MEDS: chlordiazePOXIDE (*CRX) 25 MG CAPSULE PO ×3 (05:20→21:30)
[2024-10-02 08:00] LABS: Troponin I < 0.012 ng/mL (0.000-0.034)
[2024-10-02] MEDS: INSULIN ASPART (*BKC) 100 UNITS/ML SUB-Q ×3 (08:25→21:32)
[2024-10-02] MEDS: levETIRAcetam Tablet 250 MG, levETIRAcetam Tablet 500 MG 750 MG PO ×2 (08:28→20:25)
[2024-10-02] MEDS: CLOPIDOGREL BISULFATE 75 MG TABLET PO (08:28)
[2024-10-02] MEDS: PANTOPRAZOLE 40 MG TABLET PO (08:28)
[2024-10-02] MEDS: FOLIC ACID 1 MG TABLET PO (08:28)
[2024-10-02] MEDS: MULTIVITAMINS THERAPEUTIC TAB (*BKC) 1 TABLET PO (08:28)
[2024-10-02] MEDS: LOSARTAN POTASSIUM 50 MG TABLET PO (08:28)
[2024-10-02] MEDS: ASPIRIN 81 MG ENTERIC TABLET PO (08:28)
[2024-10-02] MEDS: THIAMINE HCL 200 MG/2 ML VIAL 100 MG IV PUSH (08:29)
[2024-10-02] MEDS: dexAMETHasone SOD PHOS INJ 10 MG/ML 1 ML VIAL IV PUSH (10:04)
[2024-10-02] MEDS: oxyCODONE/ACETAMINOPHEN (*CRX) 10-325 MG TABLET 1 TAB PO ×3 (10:25→22:51)
--- NOTE | 2024-10-02 16:58 | PC.NURSE ---
Glucose 431, Marleen Shin CNA [facility] notified. New orderes received.
[2024-10-02] MEDS: INSULIN ASPART (*BKC) 100 UNITS/ML 12 UNITS SUB-Q (17:07)
[2024-10-02] MEDS: ATORVASTATIN 40 MG TABLET PO (17:07)
--- NOTE | 2024-10-02 18:08 | P.PNIM_ITS ---
Progress Note: A&P Assessment and Plan (1) Lumbar radiculopathy: Code(s): M54.16 - Radiculopathy, lumbar region Status: Acute Assessment and Plan: Patient still with complaints of lower back pain worse with movement has reported HX of chronic back pain but unsure why. CTA chest did show old compression fractures, unable to get records from [place] will r/o any acute causes denies anesthesia or loss of bowel or stool. * MR lumbar and thoracic pending * gave single dose Decadron 10mg IVP may need to switch to Celebrex due to hyperglycemia and poorly controlled diabetes * started Percocet Q6hr PRN discontinued IV Dilaudid * Will consult neurosurgery if need pending MRI results * If no acute and chronic recommend follow-up with Neurosurgery and pain specialist outpatient in [place] (2) Chest pain: Code(s): R07.9 - Chest pain, unspecified Status: Acute Assessment and Plan: Patient has history of CABG possible unstable angina, Elevated troponin, CTA negative for PE or dissection * EKG shows sinus rhythm no specific ST T-wave changes * Continue Plavix 75 mg daily p.o. * Grade 1 diastolic dysfunction LVEF at 60-65% * Consult vocational guidance counselor for evaluation treatment * reproducible cardiology this time ruled out ACS * Repeat troponin negative and EKG 10/02/2024 with no changes after reported CP (3) NSTEMI (non-ST elevation myocardial infarction): Code(s): I21.4 - Non-ST elevation (NSTEMI) myocardial infarction Status: Acute Assessment and Plan: SEE above (4) Uncontrolled type 2 diabetes mellitus: Status: Acute Assessment and Plan: * holding at glipizide and metformin * Accu-Cheks a.c. HS * diabetic diet * SSI changed to high dose since I started steroids for better glucose control * gave 6 units NovoLog extra due to glucose >400 10/02/2024 * hypoglycemic protocol (5) Alcohol abuse: Code(s): F10.10 - Alcohol abuse, uncomplicated Status: Acute Assessment and Plan: patient with long history alcohol abuse could be cause patient's seizure-like activity * Banana bag/IV fluids completed * Thiamine, folic acid, and multi-vitamin * librium * Ativan PRN for seizure activity * CIWA daily * Monitor and replenish electrolytes as needed * Seizure precautions if indicated * Provided resources for recovery (6) Witnessed seizure-like activity: Code(s): R56.9 - Unspecified convulsions Status: Acute Assessment and Plan: Patient has history of seizure, unclear diagnosis, alcohol withdrawal seizure/alcohol intoxication, Head frequent seizure in past 2 weeks. Patient had another seizure yesterday after having drinking. Possible due to noncompliant with medications and alcohol intoxication * CT head shows no acute intracranial issues * Seizure precaution * Patient received Keppra in the ED * EEG normal * Consult neurologist for evaluation treatment * Increased Keppra to 750 mg b.i.d. p.o. per neurologist recommendation Plan Code status: Full code per patient DVT prophylaxis: Lovenox Stress ulcer prophylaxis: Protonix 40 daily PT/OT notes: ambulatory Disposition: patient continues admission and treatment seizure-like activity, ETOH abuse with withdrawals and chest pain ACS ruled out at this EEG was normal did increase patient's Keppra to 750 continue with Librium for alcohol withdrawal symptoms lower back pain still present MRI pending to r/o out and acute issues but likely chronic. Time Spent With Patient Time with patient: 15 - 25 minutes Subjective Date/time seen: 10/02/24 18:08 Interval history: Patient is a 5-year-old male is admitted for further evaluation seizure-like activity witnessed, fall, chest pain, in ETOH withdrawal. 10/02/2024: Patient still with complaints of lower back pain worse with movement and ambulation. Report chest pain this morning EKG with no changes and Troponin negative likely secondary to back pain. No signs of withdrawal at this time and denied CP at time of assessment. Unknown patient cause of back pain MR pending. Review of Systems Review of Systems: ROS negative except above All systems reviewed & are unremarkable except as noted in HPI and below Exam Narrative: GENERAL: Male in no acute distress. Well-nourished. No tremors or diaphoresis - EYES: EOMI. Anicteric. - HENT: Moist mucous membranes. - LUNGS: Clear to auscultation - CARDIOVASCULAR: RRR. Reproducible lef t chest wall pain - ABDOMEN: Soft, epigastric tender and n on-distended. - EXTREMITIES: No edema. Peripheral puls es 2+. Non-tender. - NEUROLOGIC: No focal neurological defi cits. - PSYCHIATRIC: Awake, Alert and oriented x 3. - SKIN: No rashes or lesions. Warm. Objective Data Vital Signs Vital Signs: Vital Signs - 24 hr 10/01/24 20:00 10/01/24 20:00 10/01/24 20:00 Temperature Pulse Rate 84 Respiratory Rate Blood Pressure 115/79 Pulse Oximetry Oxygen Delivery Room Air 10/01/24 21:51 10/02/24 00:00 10/02/24 04:00 Temperature 97.8 F Pulse Rate 87 87 98 Respiratory Rate 16 Blood Pressure 115/79 Pulse Oximetry 97 Oxygen Delivery 10/02/24 05:40 10/02/24 08:00 10/02/24 08:00 Temperature 97.8 F Pulse Rate 77 77 Respiratory Rate 16 Blood Pressure 134/76 Pulse Oximetry 97 97 Oxygen Delivery Room Air 10/02/24 12:00 10/02/24 14:00 10/02/24 16:00 Temperature 97.5 F L Pulse Rate 82 94 90 Respiratory Rate 16 Blood Pressure 148/83 H Pulse Oximetry 99 Oxygen Delivery Intake/Output Intake/Output: Intake & Output 09/29/24 09/30/24 10/01/24 10/02/24 23:59 23:59 23:59 23:59 Intake Total 1812 1270 880 760 Output Total 2955 1950 2175 450 [facility] -[phone] 310 Meds/Results Medications: Active Medications Generic Name Dose Route Start Last Admin Trade Name Freq PRN Reason Stop Dose Admin Acetaminophen 650 mg 09/29/24 01:17 09/29/24 16:35 Acetaminophen 325 Mg Tablet PO 650 mg Q4H PRN Administration Mild Pain (1-3) or Fever Aspirin 81 mg 10/01/24 09:00 10/02/24 08:28 Aspirin 81 Mg Enteric Tablet PO 81 mg QAM RAO Administration Atorvastatin Calcium 40 mg 09/29/24 18:00 10/02/24 17:07 Atorvastatin 40 Mg Tablet PO 40 mg QPM RAO Administration Chlordiazepoxide HCl 25 mg 09/29/24 14:00 10/02/24 13:56 Chlordiazepoxide (*Crx) 25 Mg Capsule PO 25 mg Q8HR RAO Administration Clopidogrel Bisulfate 75 mg 09/29/24 09:00 10/02/24 08:28 Clopidogrel Bisulfate 75 Mg Tablet PO 75 mg DAILY RAO Administration Dextrose 12.5 gm 09/29/24 01:17 Dextrose 50% 25 Gm/50 Ml Syringe IV PUSH PRN PRN Hypoglycemia Protocol Dextrose 12.5 gm 10/02/24 18:06 Dextrose 50% 25 Gm/50 Ml Syringe IV PUSH PRN PRN Hypoglycemia Protocol Folic Acid 1 mg 10/01/24 09:05 10/02/24 08:28 Folic Acid 1 Mg Tablet PO 1 mg DAILY RAO Administration Glucagon 1 mg 10/02/24 18:06 Glucagon For Inj 1 Mg Vial IM PRN PRN Hypoglycemia Protocol Glucose 15 gm 09/29/24 01:17 Glucose Oral Gel 15 Gm Of Glucse In 37.5 Gm Tube PO PRN PRN Hypoglycemia Protocol Glucose 15 gm 10/02/24 18:06 Glucose Oral Gel 15 Gm Of Glucse In 37.5 Gm Tube PO PRN PRN Hypoglycemia Protocol Dextrose 1,000 mls @ 100 mls/hr 09/29/24 01:17 Dextrose 5% 1,000 Ml IVPB PRN PRN Hypoglycemia Protocol Dextrose 1,000 mls @ 100 mls/hr 10/02/24 18:06 Dextrose 5% 1,000 Ml IVPB PRN PRN Hypoglycemia Protocol Insulin Aspart 4 - 8 units 10/03/24 08:00 Insulin Aspart (*Bkc) 100 Units/Ml SUB-Q TIDWM RAO Protocol Levetiracetam 250 mg/ 750 mg 09/30/24 21:00 10/02/24 08:28 Levetiracetam 500 mg PO 750 mg Q12HR RAO Administration Lorazepam 2 mg 09/28/24 22:47 Lorazepam Inj (*Crx) 2 Mg/Ml Vial IV PUSH Q2H PRN CIWA > 15 Lorazepam 1 mg 09/30/24 14:17 Lorazepam Inj (*Crx) 2 Mg/Ml Vial IV PUSH Q2HR PRN until stable. (For CIWA >15 or High Risk) Losartan Potassium 50 mg 09/30/24 18:00 10/02/24 08:28 Losartan Potassium 50 Mg Tablet PO 50 mg DAILY RAO Administration Multivitamins Therapeutic 1 tablet 10/01/24 09:05 10/02/24 08:28 Multivitamins Therapeutic Tab (*Bkc) PO 1 tablet QAM RAO Administration Nitroglycerin 0.4 mg 09/29/24 02:44 09/29/24 07:49 Nitroglycerin Sl 0.4 Mg Tablet SUBLINGUAL 0.4 mg Q5MIN PRN Administration Chest Pain Ondansetron HCl 4 mg 09/29/24 08:59 Ondansetron Inj 4 Mg/2 Ml Vial IV PUSH Q6H PRN Nausea And Vomiting Oxycodone/Acetaminophen 1 tab 10/02/24 08:42 10/02/24 16:42 Oxycodone/Acetaminophen (*Crx) 10-325 Mg Tablet PO 1 tab Q6HR PRN Administration Pain Rated 7-10 Pantoprazole Sodium 40 mg 10/02/24 09:00 10/02/24 08:28 Pantoprazole 40 Mg Tablet PO 40 mg QAM RAO Administration Thiamine HCl 100 mg 09/29/24 09:00 10/02/24 08:29 Thiamine Hcl 200 Mg/2 Ml Vial IV PUSH 100 mg DAILY RAO Administration Radiology Results: ITS Impressions Chest X-Ray 09/28/24 21:33 IMPRESSION: Cardiomegaly. Minimal opacification in the left lung base which may indicate atelectatic changes. Clinical correlation advised. Chest CTA 09/29/24 05:38 Impression: No evidence of pulmonary embolus, aortic dissection, or aortic aneurysm. Clear lungs. Probable extensive narrowing of the right subclavian vein with extensive collateral vessel formation throughout the right upper thorax. Chronic compression fractures of L1 and T11, as detailed above. Head CT 09/29/24 05:38 Impression: No acute abnormality seen. 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 Carotid Doppler Study 09/30/24 17:07 IMPRESSION: 1. Less than 50% stenosis in the right internal carotid artery by sonographic criteria. 2. Less than 50% stenosis in the left internal carotid artery by sonographic criteria. Labs Labs: Laboratory Results - last 24 hr 10/01/24 10/01/24 10/02/24 19:50 23:37 07:18 POC Capillary Glucose 337 H 189 H Troponin I < 0.012 10/02/24 10/02/24 10/02/24 07:49 11:28 16:40 POC Capillary Glucose 237 H 357 H 431 H Troponin I Quality VTE Prophylaxis VTE prophylaxis: mechanical ordered -Patient's previous records reviewed on admission -ER notes reviewed in detail on admission -discussed all findings and current treatment plan with patient/Family/POA -Consultations reviewed for recommendations -Patient's disposition for safe discharge discussed with manager case Dictation performed by [employer] direct speech recognition software, 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 Hospitalist MIPS Advance Care Plan I have confirmed that the patient's Advanced Care Plan is present, code status is documented, or surrogate decision maker is listed in patient medical record.: Yes Medication Reconciliation I have utilized all available resources to obtain, update and review the patients current medications (includes all prescriptions, OTC, herbals, cannabis, and nutritional supplements).: Yes The patient is not eligible for med reconciliation; the patient is in a emergent medical situation where delaying treatment would jeopardize the patients health.: No
[2024-10-02] MEDS: LORazepam INJ (*CRX) 2 MG/ML VIAL 1 MG IV PUSH (18:22)
[2024-10-02] MEDS: ACETAMINOPHEN 325 MG TABLET 650 MG PO (20:25)
[2024-10-03] VITALS: PULSE 90
[2024-10-03] MEDS: ACETAMINOPHEN 325 MG TABLET 650 MG PO (00:39)
[2024-10-03] MEDS: chlordiazePOXIDE (*CRX) 25 MG CAPSULE PO (05:44)
[2024-10-03 06:00] VITALS: BP 109/60; PULSE 86; RESP 16; TEMP 35.9; O2SAT 98
[2024-10-03] MEDS: oxyCODONE/ACETAMINOPHEN (*CRX) 10-325 MG TABLET 1 TAB PO (06:01)
[2024-10-03 06:31] LABS: Hematocrit 38.3 % (42.0-52.0); Hemoglobin 12.7 g/dL (14.0-18.0); Mean Corpuscular HGB Conc 33.2 g/dl (32-36); Mean Corpuscular Hemoglobin 32.5 pg (26-34); Mean Corpuscular Volume 98.0 fl (80-100); Platelet Count Result 178 k/mm3 (150-375); Red Blood Count 3.91 M/mm3 (4.6-6.20); White Blood Count 10.2 K/mm3 (4.5-10.0)
[2024-10-03 06:50] LABS: Alanine Aminotransferase 35 U/L (6-50); Albumin Level 3.9 g/dL (3.5-5.1); Alkaline Phosphatase 91 U/L (38-126); Anion Gap 9 mmol/L (4-12); Aspartate Amino Transferase 36 U/L (17-59); Bilirubin,Total 0.5 mg/dL (0.2-1.3); Blood Urea Nitrogen 21 mg/dL (9-20); Calcium 9.2 mg/dL (8.4-10.2); Carbon Dioxide 24 mmol/L (22-30); Chloride 100 mmol/L (98-107); Estimated CRCL calculation 77 ml/min; Estimated Glomerular Filt Rate > 60; Glucose 466 mg/dL (65-110); Magnesium 1.9 mg/dL (1.6-2.3); Potassium 4.5 mmol/L (3.4-5.0); Sodium 133 mmol/L (137-145); Total Protein 6.8 g/dL (6.3-8.2)
[2024-10-03] MEDS: LOSARTAN POTASSIUM 50 MG TABLET PO (08:44)
[2024-10-03] MEDS: CLOPIDOGREL BISULFATE 75 MG TABLET PO (08:44)
[2024-10-03] MEDS: PANTOPRAZOLE 40 MG TABLET PO (08:44)
[2024-10-03] MEDS: FOLIC ACID 1 MG TABLET PO (08:44)
[2024-10-03] MEDS: THIAMINE HCL 200 MG/2 ML VIAL 100 MG IV PUSH (08:44)
[2024-10-03] MEDS: MULTIVITAMINS THERAPEUTIC TAB (*BKC) 1 TABLET PO (08:44)
[2024-10-03] MEDS: ASPIRIN 81 MG ENTERIC TABLET PO (08:44)
[2024-10-03] MEDS: levETIRAcetam Tablet 250 MG, levETIRAcetam Tablet 500 MG 750 MG PO (08:44)
[2024-10-03 08:45] VITALS: PULSE 90
[2024-10-03] MEDS: INSULIN ASPART (*BKC) 100 UNITS/ML 15 UNITS SUB-Q (09:13)
--- NOTE | 2024-10-03 10:25 | PC.NURSE ---
pt glucose this am was 495. this rn called out to hospitalist and was told to give 15 units of insulin in total. the sliding scale dose was non admin and the 15 units were given.
--- NOTE | 2024-10-03 10:26 | PC.NURSE ---
this nurse was informed by another rn that pt was at the nurses station stating that he wanted to leave [facility] because he knows he is getting d/c today. this rn went in pt room stating that the hospitalist has not put in a d/c yet and without that we cannot d/c. pt stated he wanted to leave [facility]. this rn called hospitalist at 0950 this am to let hospitalist know that pt wanted to leave [facility]. hospitalist informed rn that she was planning to d/c pt today but needs to see him first. pt agreed to wait for hospitalist.
[2024-10-03] MEDS: INSULIN ASPART (*BKC) 100 UNITS/ML SUB-Q (12:18)
--- NOTE | 2024-10-03 14:09 | P.DS_ITS ---
DS: Admitting Diagnosis Discharge Date 10/03/2024 Admitting Diagnosis ETOH abuse and W/D/Seizure like activity/uncontrolled diabetes/NSTEMI/Radiculopathy lumbar DS: Discharge Diagnosis Discharge Diagnosis (1) Lumbar radiculopathy: Code(s): M54.16 - Radiculopathy, lumbar region Status: Acute (2) Chest pain: Code(s): R07.9 - Chest pain, unspecified Status: Acute (3) NSTEMI (non-ST elevation myocardial infarction): Code(s): I21.4 - Non-ST elevation (NSTEMI) myocardial infarction Status: Acute (4) Uncontrolled type 2 diabetes mellitus: Status: Acute (5) Alcohol abuse: Code(s): F10.10 - Alcohol abuse, uncomplicated Status: Acute (6) Witnessed seizure-like activity: Code(s): R56.9 - Unspecified convulsions Status: Acute DS: Summary Hospital Course Reason for hospitalization: ETOH abuse and W/D/Seizure like activity/uncontrolled diabetes/NSTEMI/Radiculopathy lumbar Hospital Course: Admission: 59 years old male with history of alcohol abuse, CAD status post CABG, diabetes, hypertension, brought to ED by EMS because of seizure. Patient was recently admitted hospital because of SVT, NSTEMI, alcohol intoxication. During hospitalization, patient received heparin drip, liver Ativan for alcohol withdrawal. During hospitalization, patient condition was improving. Chest pain resolved. Patient left AMA yesterday evening. Per patient's daughter report, he was drinking in a parking lot, he had 1 [employer] lemonade. Patient daughter reported patient fell forward and passed out, and patient had some shaking activity. Patient had a seizure about 2 weeks ago. Patient denied focal weakness, but patient has intermittent chest pain, radiating to the back, abdomen pain. In the ED: patient was afebrile, blood pressure low 92/65, tachycardia tachypnea, Lab showed hemoglobin 10.8 on the baseline, echo level 70, Chemistry showed ASD status 3, albumin 3.0, EKG shows sinus rhythm no specific ST or T- wave changes, CTA was negative for PE or dissection Hospital course: Patient was admitted to the medical unit with a consult to Cardiology and Neurology. cardiology evaluated patient for possible ACS patient with history of CABG and likely unstable angina mildly elevated troponin EKG with no specific ST/ T-wave changes likely due to ischemic demand echocardiogram showed grade 1 diastolic dysfunction LVEF at 60-65% with no abnormal wall motions chest pain was reproducible in ruled out for ACS. continued patient on his Plavix daily and added aspirin 81 mg. he was also found to have uncontrolled diabetes likely secondary to his chronic alcohol abuse his glipizide and metformin were held he was placed on initially low sliding-scale insulin but had to increase to high-dose due to dose of steroid for lower back pain twice had received extra units to controlled blood sugar due to administration of steroid but overall controlled during hospitalization. Did recommend patient stop his ETOH abuse potential for hypoglycemia especially while he is on glipizide and metformin. patient was also seen for seizure-like activity reported by his daughter states patient does have history of seizures but unsure of diagnosis or whether this w as a withdrawal seizure due to alcohol intoxication. An EEG was performed which was normal but may be normal within seizures patient's Keppra was increased to 750 mg b.i.d. per neurologist he will need to follow up with his neurologist back in [place]. patient was also treated for EtOH withdrawal Librium, Ativan, folic acid, thiamine, multivitamin added at time of discharge withdrawal symptoms had resolved and he had had no further seizure-like activity during his hospitalization. Encouraged immediate ETOH cessation and resources were provided. Patient continue to have moderate to severe lower back pain I gave a 1 time dose Decadron 10 mg but had to discontinue due to elevated blood sugars in ordered a MRI lumbar and thoracic to rule out anything acute but there is history of chronic back pain mild improvement with medication added Flexeril at discharge for any muscle spasms and encouraged him to use ibuprofen or naproxen for further pain inflammation. Patient was also advised to follow up with a neuro surgery and pain specialist outpatient his hometown [place] for further evaluation and treatment MR showed no acute issues and moderate spondylosis with old compression fractures. patient was ambulatory on own at time of discharge in no acute distress patient was discharged home. Status at Discharge Functional status at discharge: independent ambulation Overall status at discharge: patient is back to baseline Time Spent with Patient Time attestation: Total time spent providing and/or coordinating discharge services: Time spent: Greater than 30 minutes Exam Narrative: GENERAL: Male in no acute distress. Well-nourished. No tremors or diaphoresis - EYES: EOMI. Anicteric. - HENT: Moist mucous membranes. - LUNGS: Clear to auscultation - CARDIOVASCULAR: RRR. Reproducible lef t chest wall pain - ABDOMEN: Soft, epigastric tender and n on-distended. - EXTREMITIES: No edema. Peripheral puls es 2+. Non-tender. - NEUROLOGIC: No focal neurological defi cits. - PSYCHIATRIC: Awake, Alert and oriented x 3. - SKIN: No rashes or lesions. Warm. DS: Data Data Completed and Pending Labs on day of discharge: Labs from last 24 hours 10/03/24 10/03/24 10/03/24 11:31 07:35 06:01 WBC 10.2 H RBC 3.91 L Hgb 12.7 L Hct 38.3 L MCV 98.0 MCH 32.5 MCHC 33.2 RDW 14.6 H Plt Count 178 MPV 10.2 Sodium 133 L Potassium 4.5 Chloride 100 Carbon Dioxide 24 Anion Gap 9 BUN 21 H D Creatinine 0.93 Estim Creat Clear Calc 77 Estimated GFR > 60 Glucose 466 H POC Capillary Glucose 387 H 495 H Calcium 9.2 Magnesium 1.9 Total Bilirubin 0.5 AST 36 ALT 35 Alkaline Phosphatase 91 Total Protein 6.8 Albumin 3.9 10/02/24 10/02/24 19:23 16:40 WBC RBC Hgb Hct MCV MCH MCHC RDW Plt Count MPV Sodium Potassium Chloride Carbon Dioxide Anion Gap BUN Creatinine Estim Creat Clear Calc Estimated GFR Glucose POC Capillary Glucose 382 H 431 H Calcium Magnesium Total Bilirubin AST ALT Alkaline Phosphatase Total Protein Albumin Imaging Radiologist's impression: Radiology Results: ITS Impressions Chest X-Ray 09/28/24 21:33 IMPRESSION: Cardiomegaly. Minimal opacification in the left lung base which may indicate atelectatic changes. Clinical correlation advised. Chest CTA 09/29/24 05:38 Impression: No evidence of pulmonary embolus, aortic dissection, or aortic aneurysm. Clear lungs. Probable extensive narrowing of the right subclavian vein with extensive collateral vessel formation throughout the right upper thorax. Chronic compression fractures of L1 and T11, as detailed above. Head CT 09/29/24 05:38 Impression: No acute abnormality seen. 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 Carotid Doppler Study 09/30/24 17:07 IMPRESSION: 1. Less than 50% stenosis in the right internal carotid artery by sonographic criteria. 2. Less than 50% stenosis in the left internal carotid artery by sonographic criteria. MRI of the thoracic spine Clinical History: Pain Technique: Axial T2-weighted and gradient images, and sagittal T1-weighted, T2- weighted, and STIR images were acquired. Findings: Chronic L1 compression fracture present with vertebroplasty cement. There is chronic compression fracture deformity of T11 with loss of height, no marrow edema. There are focal sclerotic lesion in the T10 vertebral body, nonspecific. No other fracture or subluxation identified. No other bone marrow signal abnormality identified. At T4-T5, there is small central disc protrusion. No other significant disc bulge or herniation seen in the remainder of the thoracic spine. There are facet joint degenerative changes at the lower thoracic spine. No spinal canal stenosis or cord compression at any thoracic level. There is moderate to advanced bilateral neural foraminal narrowing at T7-T8, T8-T9, T9-T10, and T10-T11. No abnormal signal seen in the spinal cord. Paravertebral soft tissues are unremarkable. Impression: Chronic compression deformity of T11 and L1, as detailed above. Focal sclerotic lesion in T10 vertebral body, nonspecific. Degenerative spondylitic changes, as above, overall mild in degree. MRI of the lumbar spine Clinical History: Pain Technique: Axial T2-weighted images, and sagittal T1-weighted, T2-weighted, and and T2 fat-sat images were acquired. Findings: Chronic L1 compression fracture for are present with vertebroplasty cement. No acute fracture or subluxation seen. No other significant bone marrow signal abnormality identified. At L1-L2, there is moderate to advanced degenerative disc narrowing without disc bulge or herniation. There is mild to moderate facet hypertrophy. No spinal canal stenosis. There is mild bilateral neural foraminal narrowing. At L2-L3, there is no disc bulge or herniation. There is mild to moderate facet arthropathy. No central canal stenosis or neural foraminal narrowing. At L3-L4, there is no disc bulge or herniation. There is moderate facet hypertrophy. No spinal canal stenosis or definite neural foraminal narrowing. At L4-L5, there is mild disc bulge with moderate facet arthropathy. No central canal stenosis. Neural foramina are preserved. At L5-S1, there is minimal disc bulge with moderate facet arthropathy. No central canal stenosis. There is moderate right neural foraminal narrowing. Left neural foramen preserved. Paravertebral soft tissues are unremarkable. Impression: Chronic L1 compression fracture deformity with vertebroplasty cement. Mild degenerative spondylosis overall, as above. Discharge Plan Discharge Attending physician on discharge: Sushila Olivier Consulting providers: Ervin Escobar; Chele Michael; Shakir Vallecillo; Debby Shin Discharging Clinician: Debby Shin Anticipated Discharge Date/Time: 10/02/24 14:39 Patient Disposition: Home Activity: may shower, no driving and as tolerated Diet: diabetic Discharge Instructions: 1) ETOH Abuse * I prescribed Folic acid, Thiamine and a multi-vitamin * I encourage immediate cessation * Resources provided for recovery 2). Lumbar/thoracic radiculopathy (back pain) chronic * I have prescribed Flexeril take as needed for muscle spasms may also use OTC for pain relief and inflammation such as ibuprofen or naproxen as needed * Pain medication has also been prescribed as needed do not drive or operate heavy machinery * Recommend follow up with a pain specialist and Neurosurgeon for further evaluation and treatment 3). Seizures: * Your Keppra has been increased to 750mg BID * Alcohol withdraw can cause severe seizures * Follow-up with a neurologist in [place] How can you care for yourself at home? ? Keep track of any new symptoms or changes in your symptoms. ? Rest until you feel better. ? Be safe with medicines. Take your medicines exactly as prescribed. Call your d octor if you think you are having a problem with your medicine. ? Do not drive after taking a prescription pain medicine. ? Ensure to follow-up with primary care physician as indicated and provide upd ated medication list provided to you at discharge. When should you call for help? Call 911 anytime you think you may need emergency care. For example, call if: ? You passed out (lost consciousness). Call your doctor now or seek immediate medical care if: ? You have new symptoms like fever, difficulty breathing, Chest pain, vomiting, or rash. ? You have new or different pain. ? You are confused and are having trouble thinking clearly. ? Your symptoms are getting worse. Watch closely for changes in your health, and be sure to contact your doctor if: ? You do not get better as expected. Patient Instructions: Antibiotic Form, Coronary Artery Disease (DC), Coronary Artery Disease (GEN), Epilepsy (DC), Abuse of Alcohol (GEN), Alcohol Withdrawal (GEN), Lumbar Radiculopathy (GEN), Chronic Back Pain (DC), Alcohol Dependence (GEN), High Troponin Levels (GEN) Patient Language: Korean Stand Alone Forms: General Discharge Information Follow-up/Referrals: PHYSICIAN NOT ON STAFF,NONSTAFF [Primary Care Provider] - 4 Weeks (Follow-up with your primary when you return to [place]) Discharge Medications: New aspirin 81 mg Tablet,Delayed Release (Dr/Ec) 81 mg PO QAM Qty: 30 0RF folic acid 1 mg Tablet 1 mg PO DAILY Qty: 30 0RF multivitamin with folic acid [Thera] 400 mcg Tablet 1 tablet PO QAM Qty: 30 0RF oxycodone-acetaminophen 10-325 mg Tablet 1 tablet PO Q6HR PRN (Reason: Pain Rated 7-10) Qty: 20 0RF thiamine HCl (vitamin B1) 100 mg capsule 100 mg PO DAILY Qty: 30 0RF levetiracetam 750 mg tablet 750 mg PO BID Qty: 60 0RF cyclobenzaprine 10 mg Tablet 10 mg PO Q8H PRN (Reason: Muscle Spasm) Qty: 30 0RF Continued atorvastatin 40 mg tablet 40 mg PO QPM losartan 50 mg tablet 50 mg PO DAILY metformin 1,000 mg tablet 1,000 mg PO BIDWM glipizide 5 mg tablet 5 mg PO BIDWM clopidogrel 75 mg tablet 75 mg PO DAILY Date of admission: 09/30/24 13:26 Primary Care Provider: PHYSICIAN NOT ON STAFF,NONSTAFF Admitting Provider: Bridgette Oliveros Attending physician on admission: Bridgette Oliveros Condition: Stable Quality VTE Prophylaxis VTE prophylaxis: mechanical ordered -Patient's previous records reviewed on admission -ER notes reviewed in detail on admission -discussed all findings and current treatment plan with patient/Family/POA -Consultations reviewed for recommendations -Patient's disposition for safe discharge discussed with 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 Hospitalist MIPS Heart Failure (Exclusion) Patient has history of Heart Transplant or Left Ventricular Assistive Device?: No IF YES, STOP HERE Heart Failure (Qualifier) Patient has current or prior documentation of LVEF less than or equal to 40%, or mod/servere depressed LVSF?: No IF NO, STOP HERE
== END 2024-10-03 12:35 | disposition home or self-care (01) | DRG 897 ==
LOC: ANHED 09-29 01:21 → ANHIMU 09-29 01:50 → ANH3MEDSUR 09-30 18:24
PROVIDERS: Psychiatry & Neurology Neurology; Admitting Provider General Practice; Emergency Provider Physician Assistant; Visit Provider Nurse Practitioner Family
DX: F10.239 Alcohol dependence with withdrawal, unspecified (principal); G40.509 Epileptic seizures related to external causes, not intractable, without status epilepticus; I24.89 Other forms of acute ischemic heart disease; I5A Non-ischemic myocardial injury (non-traumatic); E11.65 Type 2 diabetes mellitus with hyperglycemia; F10.229 Alcohol dependence with intoxication, unspecified; I25.10 Atherosclerotic heart disease of native coronary artery without angina pectoris; F17.210 Nicotine dependence, cigarettes, uncomplicated; M54.16 Radiculopathy, lumbar region; I15.2 Hypertension secondary to endocrine disorders; E11.69 Type 2 diabetes mellitus with other specified complication; E78.5 Hyperlipidemia, unspecified; G40.909 Epilepsy, unspecified, not intractable, without status epilepticus; K29.20 Alcoholic gastritis without bleeding; D50.9 Iron deficiency anemia, unspecified; Z95.1 Presence of aortocoronary bypass graft; Y90.3 Blood alcohol level of 60-79 mg/100 ml; Z79.84 Long term (current) use of oral hypoglycemic drugs; Z86.73 Personal history of transient ischemic attack (TIA), and cerebral infarction without residual deficits
CPT/HCPCS: 36415; 70450; 71045; 71046; 71275; 72146; 72148; 80053; 80061; 80307; 81003; 82077; 82274; 82306; 82607; 82728; 82746; 82948; 83540; 83550; 83605; 83690; 83735; 84132; 84443; 84484; 85025; 85027; 85055; 85610; 85730; 93005; 93880; 95816; 96361; 96365; 96367; 96374; 96375; 96376; 99285; A9270; C8929; G0378; J0153; J1100; J1171; J1644; J1815; J1953; J2060; J2405; J2470; J3411; J3475; J7030; J7042; Q9957; Q9967